=== PATIENT | female | born 1935 | race Caucasian/White ===

== ENCOUNTER 2018-07-18 08:21 | Emergency (ER) | payer MEDICARE, OTHER ==
[~2018-07-18] VITALS: Ht 165.1 cm; Wt 72.1 kg
--- OUTSIDE RECORDS SUMMARY | ~2018-07-18 | XMS | Clinical Summary ---
Demographics + + + | Address | [address] [facility] | | | [place] [address] | + + + | Home Phone | | + + + | Preferred Language | Unknown | + + + | Marital Status | | + + + | Alevism Affiliation | 1028 | + + + | Race | Unknown | + + + | Ethnic Group | Unknown | + + + Author + + + | Author | [facility] | | | and [place] | + + + | Organization | [facility] | | | and [place] | + + + | Address | Unknown | + + + | Phone | Unavailable | + + + Support + + + + + | Name | Relationship | Address | Phone | + + + + + | Leandro Carrizales | ECON | [address] | | | | | [place] | | | | | [address] | | + + + + + Care Team Providers + +------+ + | Care Senior Reservations Agent Name | Role | Phone | + [...] | | + + + +--------+ + Current Medications + + +--------+---------+------+------+-------+ | Prescription | Sig. | Disp. | Refills | Star | End | Statu | | | | | | t | Date | s | | | | | | Date | | | + + +--------+---------+------+------+-------+ | paroxetine (PAXIL) | Take 30 mg by mouth | | | 05/12 | | Activ | | 30 MG tablet | Daily. | | | 12/29 | | e | | | | | | 12 | | | + + +--------+---------+------+------+-------+ | Calcium | Take by mouth 2 | | | 05/12 | | Activ | | Citrate-Vitamin D | times daily. | | | 12/29 | | e | | (CITRACAL/VITAMIN D) | | | | 12 | | | | 250-200 MG-UNIT | | | | | | | | TABS | | | | | | | + + +--------+---------+------+------+-------+ | potassium chloride | Take 10 mEq by mouth | | | 05/12 | | Activ | | (MICRO-K) 10 mEq CR | Daily. | | | 12/29 | | e | | capsule | | | | 12 | | | + + +--------+---------+------+------+-------+ | gabapentin | Take 300 mg by mouth | | | 05/12 | | Activ | | (NEURONTIN) 300 mg | 2 times daily. | | | 12/29 | | e | | capsule | | | | 12 | | | + + +--------+---------+------+------+-------+ | omeprazole | Take 20 mg by mouth | | | 05/12 | | Activ | | (PRILOSEC) 20 mg | Daily. | | | 12/29 | | e | | capsule | | | | 12 | | | + + +--------+---------+------+------+-------+ | furosemide (LASIX) | Take 40 mg by mouth | | | 05/12 | | Activ | | 40 mg tablet | Daily. | | | 12/29 | | e | | | | | | 12 | | | + + +--------+---------+------+------+-------+ | Acetaminophen | Take 1,000 mg by | | | | | Activ | | (TYLENOL ARTHRITIS | mouth 3 times daily. | | | | | e | | PAIN PO) | | | | | | | + + +--------+---------+------+------+-------+ | aspirin 81 mg EC | Take 81 mg by mouth | | | | | Activ | | tablet | Daily. | | | | | e | + + +--------+---------+------+------+-------+ | levothyroxine | Take 25 mcg by mouth | | | | | Activ | | (SYNTHROID, | every morning | | | | | e | | LEVOTHROID) 25 mcg | (before breakfast). | | | | | | | tablet | | | | | | | + + +--------+---------+------+------+-------+ | melatonin 5 mg | Take 10 mg by mouth | | | | | Activ | | tablet | nightly. | | | | | e | + + +--------+---------+------+------+-------+ | VALERIAN PO | Take 3 capsules by | | | | | Activ | | | mouth nightly. | | | | | e | + + +--------+---------+------+------+-------+ | tiZANidine | Take 0.5 tablets by | 90 | 1 | 04/0 | | Activ | | (ZANAFLEX) 4 mg | mouth every 6 hours | tablet | | 6/20 | | e | | tablet | as needed. | | | 16 | | | + + +--------+---------+------+------+-------+ | DiphenhydrAMINE | Take 25 mg by mouth | | | | | Activ | | HCl (BENADRYL | 4 times daily. | | | | | e | | ALLERGY PO) | Patient takes at | | | | | | | | night. | | | | | | + + +--------+---------+------+------+-------+ | Cyanocobalamin | Take 1 tablet by | | | | | Activ | | (VITAMIN B 12 PO) | mouth Daily. | | | | | e | + + +--------+---------+------+------+-------+ | losartan (COZAAR) | Take 100 mg by mouth | | 6 | 01/ | | Activ | | 100 MG tablet | Daily. | | | 020 | | e | | | | | | 17 | | | + + +--------+---------+------+------+-------+ | atorvaSTATin | Take 20 mg by mouth | | 5 | 12/2 | | Activ | | (LIPITOR) 20 mg | Daily. | | | 04/30 | | e | | tablet | | | | 16 | | | + + +--------+---------+------+------+-------+ | carbidopa-levodopa | Take 1 tablet by | | | 2 | | Activ | | (SINEMET) 10-100 mg | mouth Daily. | | | 8 | | e | | per tablet | | | | 17 | | | + + +--------+---------+------+------+-------+ | dilTIAZem | Take 180 mg by mouth | | | 09/11 | | Activ | | (CARDIZEM CD) 180 mg | Daily. | | | 320 | | e | | 24 hr capsule | | | | 17 | | | + + +--------+---------+------+------+-------+ | | Take 1 tablet by | | | 11/0 | | Activ | | oxyCODONE-acetaminop | mouth as needed. | | | 3/20 | | e | | hen (PERCOCET) | | | | 17 | | | | 10-325 mg per tablet | | | | | | | + + +--------+---------+------+------+-------+ | allopurinol | Take 300 mg by mouth | | 0 | 08/2 | | Activ | | (ZYLOPRIM) 300 mg | Daily. | | | 05/31 | | e | | tablet | | | | 17 | | | + + +--------+---------+------+------+-------+ | LORazepam (ATIVAN) | Take 1 tablet by | 2 | 0 | 11/2 | | Activ | | 0.5 mg tablet | mouth once as needed | tablet | | 03/30 | | e | | | for Anxiety or | | | 17 | | | | | Insomnia (Take [...] | dose. | | | | | | + + +--------+---------+------+------+-------+ Active Problems + + + | Problem | Noted Date | + + + | S/P lumbar fusion | 01/19/2016 | + + + | BILLIE (obstructive sleep apnea) | 12/14/2015 | + [...] | 03/03/2015 | + + + | SPINAL STENOSIS, LUMBAR | | + + + | BURSITIS, HIP | | + + + | DEGENERATIVE DISC DISEASE, LUMBAR SPINE | | + + + | BACK PAIN, LUMBAR | | + + + | OSTEOARTHRITIS, LUMBOSACRAL SPINE | | + + + Encounters +--------+ + + + + | Date | Type | Specialty | Care Team | Description | +--------+ + + + + | 06/14/ | Telephone | | Umer Garcia MD | Pain | | 2018 | | | | | +--------+ + + + + from Last 3 Months Family History + + +------+ + | [...] + | Paternal Grandmother | | | [place] | | | | (Age | | | | | 59) | | + +------+ + + Social [...] + + + | Blood Pressure | 160/88 | 07/17/2017 1020 PST | + + + + | Pulse | 76 | 07/17/2017 1020 PST | + + + + | Temperature | 37.9 C (100.2 F) | 12/16/2015 1600 PDT | + + + + | Respiratory Rate | 16 | 10/20/2016 1038 PST | + + + + | Oxygen Saturation | 93% | 12/16/2015 1600 PDT | + + + + | Inhaled Oxygen | - | - | | Concentration | | | + + + + | Weight | 74.8 kg (164 lb 14.5 | 07/17/20170 PST | | | oz) | | + + + + | Height | 165.1 cm (5' 5") | 07/17/20170 PST | + + + + | Body Mass Index | 27.44 | 07/17/20170 PST | + + + + Plan of Treatment + + + + + | Health Maintenance | Due Date | Last Done | Comments | + + + + + | Vaccine: | | | | | Dtap/Tdap/Td (1 - | 6 | | | | Tdap) | | | | + + + [...] + + | Vaccine: Influenza | | | | | (#1) | 8 | | | + + + + + Implants + +--------+--------+ +--------+--------+--------+ | Implanted | Type | Area | Manufacture | Device | Expira | Model | | | | | r | | tion | / | | | | | | Identi | Date | Serial | | | | | | fier | | / Lot | + +--------+--------+ +--------+--------+--------+ | Bone [employer] Chip 15cc 4-10mm - | Bone | N/A: | RTI | | 07/11/ | [id number] | | [id number]: Qty: 1 | | Spine | BIOLOGICS | | 2020 | | | on 12/14/2015 by Umer Garcia | | Lumbar | INC - RBIO | | | /[id number] | | MD Mary | | | | | | 7-054 | | | | | | | | / | + +--------+--------+ +--------+--------+--------+ | Imp Spn Intbdy Xlw | Generi | N/A: | NUVASIVE - | | | [id number] | | [id number] - | c | Spine | NVSV | | | / / | | [id number]: Qty: 1 on | | Lumbar | | | | | | 12/14/2015 by Umer Garcia, | | | | | | | | | | | | | | | + +--------+--------+ +--------+--------+--------+ | Hector Ti Prebent Lordtc 60mm - | Generi | N/A: | NUVASIVE - | | | [id number] | | [id number]: Qty: 2 on | c | Spine | NVSV | | | 0 / / | | 12/14/2015 by Umer Garcia, | | Lumbar | | | | | | MD | | | | | | | + +--------+--------+ +--------+--------+--------+ | Graft Infuse Bone Kit Xs - | Graft | N/A: | SOFAMOR | | 08/10/ | [id number] | | [id number]: Qty: 1 on | | Spine | DANEK - DIV | | 2015 | 0 / | | 12/14/2015 by Umer Garcia, | | Lumbar | [employer] | | | /[id number] | | MD | | | - SFDK | | | 47AAL | + +--------+--------+ +--------+--------+--------+ | Putty Shilo 10cc Dbm - | Graft | N/A: | [employer] - | | 08/03/ | [id number] | | [id number]: Qty: 1 | | Spine | MEDT | | 2018 | | | on 12/14/2015 by Umer Garcia | | Lumbar | | | | /[id number] | | MD Mary | | | | | | 1-024 | | | | | | | | / | + +--------+--------+ +--------+--------+--------+ | Screw Polyax Prcpt 7.5x45mm - | Screw | N/A: | NUVASIVE - | | | [id number] | | [id number]: Qty: 2 | | Spine | NVSV | | | 5A / / | | on 12/14/2015 by Umer Garcia | | Lumbar | | | | | | MD Mary | | | | | | | + +--------+--------+ +--------+--------+--------+ | Screw Polyax Prcpt 7.5x50mm - | Screw | N/A: | NUVASIVE - | | | [id number] | | [id number]: Qty: 2 | | Spine | NVSV | | | 0A / / | | on 12/14/2015 by Umer Garcia | | Lumbar | | | | | | MD Mary | | | | | | | + +--------+--------+ +--------+--------+--------+ | Screw Polyax Precept 7.5x55 - | Screw | N/A: | NUVASIVE - | | | [id number] | | [id number]: Qty: 2 | | Spine | NVSV | | | 5A / / | | on 12/14/2015 by Umer Garcia | | Lumbar | | | | | | MD Mary | | | | | | | + +--------+--------+ +--------+--------+--------+ | Screw Set - | Screw | N/A: | NUVASIVE - | | | [id number] | | [id number]: Qty: 6 on | | Spine | NVSV | | | 0 / / | | 12/14/2015 by Umer Garcia, | | Lumbar | | | | | | | | | | | | | + +--------+--------+ +--------+--------+--------+ | Willy Chinn Pls 1cc Aseptic | | N/A: | OSTEOTECH - | | 09/17/ | [id number] | | - [id number]: Qty: | | Spine | OSTT | | 2017 | | | 1 on 04/30/2015 by Jose, | | Emily | | | | /[id number] | | Umer Hernandez MD | | al | | | | 9-140 | | | | | | | | / | + +--------+--------+ +--------+--------+--------+ | Allograft Lordotic [id number] - | | N/A: | SOFAMOR | | 11/19/ | [id number] | | [id number]: Qty: 1 on | | Spine | DANEK - DIV | | 2017 | | | 04/30/2015 by Umer Garcia, | | Cervic | [employer] | | | /[id number] | | MD | | al | - SFDK | | | 564 | | | | | | | | /27708 | | | | | | | | 5449 | + +--------+--------+ +--------+--------+--------+ | Allograft Lordotic [id number] - | | N/A: | SOFAMOR | | 11/19/ | [id number] | | [id number]: Qty: 1 on | | Spine | DANEK - DIV | | 2017 | | | 04/30/2015 by Umer Garcia, | | Cervic | [employer] | | | /[id number] | | MD | | al | - SFDK | | | 562 | | | | | | | | /[id number] | | | | | | | | 5449 | + +--------+--------+ +--------+--------+--------+ | Imp Spn Plt Ti Zevo 37mm 2lvl | | N/A: | SOFAMOR | | | [id number] | | - [id number]: Qty: 1 | | Spine | DANEK - DIV | | | 7 / / | | on 04/30/2015 by Umer Garcia | | Emily | MEDSAM | | | | | MD Mary | | peter | - SFDK | | | | + +--------+--------+ +--------+--------+--------+ | Screw D-Thrd Slf-Drl 3.5x15mm | | N/A: | SOFAMOR | | | [id number] | | - [id number]: Qty: 4 | | Spine | DANEK - DIV | | | / | | on 04/30/2015 by Umer Garcia | | Emily | [employer] | | | | | MD Mary | | peter | - SFDK | | | | + +--------+--------+ +--------+--------+--------+ | Screw D-Thrd Slf-Drl 4.0x15mm | | N/A: | SOFAMOR | | | [id number] | | - [id number]: Qty: 2 | | Spine | DANEK - DIV | | | 5 / | | on 04/30/2015 by Umer Garcia | | Emily | [employer] | | | | | MD Mary | | peter | - SFDK | | | | + +--------+--------+ +--------+--------+--------+ | Tlif Oblique [id number] 12deg | | N/A: | NUVASIVE - | | | 528378 | | - [id number]: Qty: 1 | | Spine | NVSV | | | 2 / / | | on 12/14/2015 by Umer Garcia | | Lumbar | | | | | | A, MD | | | | | | | + +--------+--------+ +--------+--------+--------+ Results Not on filefrom Last 3 Months Insurance + +--------+ +--------+ +---------+ | Payer | Benefi | Subscriber | Type | Phone | Address | | | t Plan | ID | | | | | | / | | | | | | | Group | | | | | + +--------+ +--------+ +---------+ | MEDICARE | MEDICA | [id number] | Medica | [phone] | | | | RE | | re | [phone] | | | | PART A | | | | | | | AND B | | | | | + +--------+ +--------+ +---------+ | [employer] | TRANSA | [id number] | Indemn | | | | INSURANCE | MERICA | | ity | | | | | LIFE | | | | | | | MS | | | | | + +--------+ +--------+ +---------+ + +--------+ +--------+ + + | Guarantor Name | Accoun | Relation to | Date | Phone | Billing Address | | | t Type | Patient | of | | | | | | | | | | + +--------+ +--------+ + + | MELLISA CARRIZALES | Person | Self [birth year] Home: | [address] | | | al/Fam | | 1935 | [phone] | [place] | | | [place] | | | [phone] | [phone] | + +--------+ +--------+ + +
--- OUTSIDE RECORDS SUMMARY | ~2018-07-18 | XMS | Encounter Summary ---
Demographics + + + | Address | [address] | | | [place] [address] | + + + | Home Phone | | + + + | Preferred Language | Unknown | + + + | Marital Status | | + + + | Sikhism Affiliation | 1028 | + + + | Race | Unknown | + + + | Ethnic Group | Unknown | + + + Author + + + | Author | [facility] | + + + | Organization | [facility] | + + + | Address | Unknown | + + + | Phone | Unavailable | + + + Support + + +---------+ + | Name | Relationship | Address | Phone | + + +---------+ + | Leandro Carrizales | ECON | Unknown | | + + +---------+ + Care Team Providers + +------+ + | Care Oxygen Equipment Technician Name | Role | Phone | + +------+ + | Ethan Solomon MD | PCP | | + +------+ + Encounter Details +--------+ + + + + | Date | Type | Department | Care Team | Description | +--------+ + + + + | 05/10/ | Orders Only | [facility] | Matthew | Injury of left | | 2018 | | Vascular Surgery | BHANU Aceves | axillary artery, | | | | [address] | | initial encounter | | | | E [place] | | (Primary Dx) | | | | [address] | | | | | | [phone] | | | +--------+ + + + [...] +---------+ + | Yes | | | rarely | + + +---------+ + + + + | Sex Assigned at | Date Recorded | | | | + + + | Not on file | | + + + as of this encounter Plan of Treatment + +--------+ + + | Name | Priori | Associated Diagnoses | Order Schedule | | | ty | | | + +--------+ + + | US carotid doppler, bilateral | Routin | Injury of left | Expected: | | | e | axillary artery, | 05/10/2018, Expires: | | | | initial encounter | 02/07/2019 | + +--------+ + + | US upper extremity arterial | Routin | Injury of left | Expected: | | unilateral | e | axillary artery, | 05/10/2018, Expires: | | | | initial encounter | 02/07/2019 | + +--------+ + + as of this encounter Visit Diagnoses + + | Diagnosis | + + | Injury of left axillary artery, initial encounter - Primary | + +"
--- OUTSIDE RECORDS SUMMARY | ~2018-07-18 | XMS | Clinical Summary ---
Demographics + + + | Address | [address] [facility] | | | [place] [address] | + + + | Home Phone | | + + + | Preferred Language | Unknown | + + + | Marital Status | | + + + | Mormon Affiliation | 1028 | + + + | Race | Unknown | + + + | Ethnic Group | Unknown | + + + Author + + + | Author | [facility] | | | and [place] | + + + | Organization | [facility] | | | [...] [place] | | | | | [address] | | + + + + + Care Team Providers + +------+ + | Care Personal Protection Specialist Name | Role | Phone | [...] + | Paternal Grandmother | | | [place] | | | | (Age | | [...] Lot | + +--------+--------+ +--------+--------+--------+ | Bone [employer] Chip 15cc 4-10mm - | Bone | N/A: | RTI | | 07/11/ | [id number] | | [id number]: Qty: 1 | | Spine | BIOLOGICS | | 2020 | | | on 12/14/2015 by Umer Garcia | | Lumbar | INC - RBIO | | | /[id number] | | MD Mary | | | | | | 7-054 | | | | | | | | / | + +--------+--------+ +--------+--------+--------+ | Imp Spn Intbdy Xlw | Generi | N/A: | NUVASIVE - | | | 246655 | | [id number] - | c | Spine | NVSV | | | / / | | [id number]: Qty: 1 on | | Lumbar | | | | | | 12/14/2015 by Umer Garcia, | | | | | | | | | | | | | | | + +--------+--------+ +--------+--------+--------+ | Hector Ti Prebent Lordtc 60mm - | Generi | N/A: | NUVASIVE - | | | [id number] | | [id number]: Qty: 2 on | c | Spine | NVSV | | | 0 / / | | 12/14/2015 by Umer Garcia, | | Lumbar | | | | | | MD | | | | | | | + +--------+--------+ +--------+--------+--------+ | Graft Infuse Bone Kit Xs - | Graft | N/A: | SOFAMOR | | 08/10/ | [id number] | | [id number]: Qty: 1 on | | Spine | [...] | [employer] - | | 08/03/ | [id number] | | [id number]: Qty: 1 | | Spine | MEDT [...] N/A: | NUVASIVE - | | | 590482 | | [id number]: Qty: 2 | | Spine | NVSV | | | 5A / / | | on 12/14/2015 by Umer Garcia | | Lumbar | | | | | | MD Mary | | | | | | | + +--------+--------+ +--------+--------+--------+ | Screw Polyax Prcpt 7.5x50mm - | Screw | N/A: | NUVASIVE - | | | [id number] | | [id number]: Qty: 2 | | Spine | NVSV | | | 0A / / | | on 12/14/2015 by Umer Garcia | | Lumbar | | | | | | MD Mary | | | | | | | + +--------+--------+ +--------+--------+--------+ | Screw Polyax Precept 7.5x55 - | Screw | N/A: | NUVASIVE - | | | [id number] | | [id number]: Qty: 2 | | Spine | NVSV | | | 5A / / | | on 12/14/2015 by Umer Garcia | | Lumbar | | | | | | MD Mary | | | | | | | + +--------+--------+ +--------+--------+--------+ | Screw Set - | Screw | N/A: | NUVASIVE - | | | [id number] | | [id number]: Qty: 6 on | | Spine | NVSV | | | 0 / / | | 12/14/2015 by Umer Garcia, | | Lumbar | | | | | | | | | | | | | + +--------+--------+ +--------+--------+--------+ | Willy Chinn Pls 1cc Aseptic | | N/A: | OSTEOTECH - | | 09/17/ | [id number] | | - [id number]: Qty: | | Spine | OSTT | | 2017 | | | 1 on 04/30/2015 by Jose, | | Emily | | | | /[id number] | | Umer Hernandez MD | | al | | | | 9-140 | | | | | | | | / | + +--------+--------+ +--------+--------+--------+ | Allograft Lordotic [id number] - | | N/A: | SOFAMOR | | 11/19/ | [id number] | | [id number]: Qty: 1 on | | Spine | DANEK - DIV | | 2017 | | | 04/30/2015 by Umer Garcia, | | Cervic | [employer] | | | /70161 | | MD | | al | - SFDK | | | 564 | | | | | | | | /[address] | | | | | | | | 5449 | + +--------+--------+ +--------+--------+--------+ | Allograft Lordotic [id number] - | | N/A: | SOFAMOR | | 11/19/ | [id number] | | [id number]: Qty: 1 on | | Spine | DANEK - DIV | | 2017 | | | 04/30/2015 by Umer Garcia, | | Cervic | [employer]TR[employer]IC | | | /04542 | | MD | | al | - SFDK | | | 562 | | | | | | | | /[address] | | | | | | | | 5449 | + +--------+--------+ +--------+--------+--------+ | Imp Spn Plt Ti Zevo 37mm 2lvl | | N/A: | SOFAMOR | | | [id number] | | - [id number]: Qty: 1 | | Spine | DANEK - DIV | | | 7 / / | | on 04/30/2015 by Umer Garcia | | Emily | MEDSAM | | | | | MD Mary | | peter | - SFDK | | | | + +--------+--------+ +--------+--------+--------+ | Screw D-Thrd Slf-Drl 3.5x15mm | | N/A: | SOFAMOR | | | [id number] | | - [id number]: Qty: 4 | | Spine | DANEK - DIV | | | / | | on 04/30/2015 by Umer Garcia | | Emily | [employer] | | | | | MD Mary | | peter | - SFDK | | | | + +--------+--------+ +--------+--------+--------+ | Screw D-Thrd Slf-Drl 4.0x15mm | | N/A: | SOFAMOR | | | [id number] | | - [id number]: Qty: 2 | | Spine | DANEK - DIV | | | 5 / | | on 04/30/2015 by Umer Garcia | | Emily | [employer] | | | | | MD Mary | | peter | - SFDK | | | | + +--------+--------+ +--------+--------+--------+ | Tlif Oblique [id number] 12deg | | N/A: | NUVASIVE - | | | [id number] | | - [id number]: Qty: 1 | | Spine | NVSV [...] +--------+ +---------+ | MEDICARE | MEDICA | [id number] | Medica | [phone] | | | | RE | | re | [phone] | | | | PART A | | | | | | | AND B | | | | | + +--------+ +--------+ +---------+ | [employer] | TRANSA | [id number] | Indemn | | | | INSURANCE [...] | [birth year] | Home: | [address] | | | al/Fam | | 1935 | [phone] | [place] | | | [place] | | | [phone] | [phone] | + +--------+ +--------+ + +
--- OUTSIDE RECORDS SUMMARY | ~2018-07-18 | XMS | Clinical Summary ---
Demographics + + + | Address | [address] | | | [place] [address] | + + + | Home Phone | | + + + | Preferred Language | Unknown | + + + | Marital Status | | + + + | Oriental Orthodox Affiliation | 1028 | + + + | Race | Unknown | + + + | Ethnic Group | Unknown | + + + Author + + + | Author | [facility] | + + + | Organization | [facility] | + + + | Address | Unknown | + + + | Phone | Unavailable | + + + Support + + +---------+ + | Name | Relationship | Address | Phone | + + +---------+ + | Leandro Carrizales | ECON | Unknown | | + + +---------+ + Care Team Providers + +------+ + | Care Research Interviewer Name | Role | Phone | + [...] mouth 2 (two) times | | | /20 | | e | | tablet | [...] | | capsule | | | | 7/20 | | e | | | | | | 18 | | | + + +--------+---------+------+------+-------+ | levothyroxine | | | | 01 | | Activ | | (SYNTHROID) 25 MCG | | | | 420 | | e | | tablet | | | | 18 | | | + + +--------+---------+------+------+-------+ | allopurinol | | | | 02/2 | | Activ | | (ZYLOPRIM) 300 MG | | | | 220 | | e | | tablet | [...] TABLET BY | 30 | 10 | 04/1 | | Activ | | (PLAVIX) 75 [...] | 06/03/2013 | + + + Encounters +--------+ + + + + | Date | Type | Specialty | Care Team | Description | +--------+ + + + + | 05/10/ | Orders Only | | Matthew, | Injury of left | | 2017 | | | BHANU Aceves | axillary artery, | | | | | | initial encounter | | | | | | (Primary Dx) | +--------+ + + + + from [...] + + + | Blood Pressure | 146/74 | 12/11/2017 11:02 AM PDT | + + + + | Pulse | 70 | 12/11/2017 11:02 AM PDT | + + + + | Temperature | 36.7 C (98 F) | 01/24/2017 1:43 PM PDT | + + + + | Respiratory Rate | 14 | 12/11/2017 11:02 AM PDT | + + + + | Oxygen Saturation | 97% | 12/11/2017 11:02 AM PDT | + + + + | Inhaled Oxygen | - | - | | Concentration | | | + + + + | Weight | 75.3 kg (166 lb) | 10/25/2017 3:31 PM PST | + + + + | Height | 165.1 cm (5' 5") | 10/25/2017 3:31 PM PST | + + + + | Body Mass Index | 27.62 | 10/25/2017 3:31 PM PST | + + + + Plan [...] | | 01/08/ | 6188-1 | | [id number]: Qty: 1 on | | Should | MEDICAL - | | 2018 | -001 / | | 01/03/2017 by Hu Quintero, | | er | STRY | | | | | | | | | | | /[id number] | | | | | | | | 6 | + +------+--------+ +--------+--------+--------+ | Imp Shldr Hum Stem Flx Std 4c | | Left: | MRAIAMA - | | 11/08/ | [id number] | | - [id number]: Qty: | | Should | TRNR | | 2020 | C | | 1 on 01/03/2017 by Hu Quintero | | er | | | | /[id number] | | MD Duc | | | | | | [id number] / | + +------+--------+ +--------+--------+--------+ | Flex Shoulder System Aequalis | | Left: | SOPHYER - | | 06/02/ | [id number] | | Humeral HeadImplanted: Qty: | | Should | TRNR | | 2020 | | | 1 on 01/03/2017 by Hu Quintero | | er | | | | /[id number] | | MD Duc | | | | | | [id number] / | + +------+--------+ +--------+--------+--------+ | Imp Conchita Sykes [facility] S35 | | Left: | MARIAMA - | | 09/13/ | [id number] | | - [id number]: Qty: | | Should | TRNR | | 2021 | | | 1 on 01/03/2017 by Hu Quintero | | er | | | | /[id number] | | MD Duc | | | | | | [id number] / | + +------+--------+ +--------+--------+--------+ Results Not on filefrom Last 3 Months Insurance + +--------+ +------+-------+ + | Payer | Geovannyi | Subscriber | Type | Phone | Address | | | t Plan | ID | | | | | | / | | | | | | | Group | | | | | + +--------+ +------+-------+ + | MEDICARE | MEDICA | [id number] | | | [address] | | | RE | | | | [place] [address] | | | IP-OP | | | | | + +--------+ +------+-------+ + | COMMERCIAL OTHER | TRANSA | [id number] | | | | | | MERICA | | | | | | | LIFE | | | | | + +--------+ [...] Self | [birth year] Home: | [address] | | | al/Fam | | 1935 | [phone] [address] | | | [place] | | | [phone] | [phone] | + +--------+ +--------+ + +
--- OUTSIDE RECORDS SUMMARY | ~2018-07-18 | XMS | Encounter Summary ---
Demographics + + + | Address | [address] | | | [place] [address] | + + + | Home Phone | | + + + | Preferred Language | Unknown | + + + | Marital Status | | + + + | Orthodox Affiliation | 1028 | + + + | Race | Unknown | + + + | Ethnic Group | Unknown | + + + Author + + + | Author | [facility] | + + + | Organization | [facility] | + + + | Address | Unknown | + + + | Phone | Unavailable | + + + Support + + +---------+ + | Name | Relationship | Address | Phone | + + +---------+ + | Leandro Carrizales | ECON | Unknown | | + + +---------+ + Care Team Providers + +------+ + | Care Real Estate Agency Licensee Name | Role | Phone | + +------+ + | Ethan Solomon MD | PCP | | + +------+ + Encounter Details +--------+ + + + + | Date | Type | Department | Care Team | Description | +--------+ + + + + | 05/10/ | Orders Only | [facility] | Matthew | Injury of left | | 2018 | | Vascular Surgery | BHANU Aceves | axillary artery, | | | | [address] | | initial encounter | | | | E [place] | | (Primary Dx) | | | | [address] | | | | | | [phone] | | | +--------+ + + + [...]
--- OUTSIDE RECORDS SUMMARY | ~2018-07-18 | XMS | Encounter Summary ---
Demographics + + + | Address | [address] | | | [place] [address] | + + + | Home Phone [...] [place] | | | | | [address] | | + + + + + Care Team Providers + +------+ + | Care Big Data Analytics Lead Name | Role | Phone | + +------+ + | Ethan Solomon MD | PCP | | + +------+ + Reason for Visit +--------+ + | Reason | Comments | +--------+ + | Pain | | +--------+ + Encounter Details +--------+ + + + + | Date | Type | Department | Care Team | Description | +--------+ + + + + | 06/14/ | Telephone | [facility] | Umer Garcia MD | Pain | | 2018 | | NEUROSURGERY [address] | [address] [place] | | | | | [address] | [address] [place], [place] | | | | | [place], [place] | [address] | | | | | [address] | | | | | | [phone] | | | +--------+ + + + [...] + + + as of this encounter Functional Status + [...] | | | + + + + as of this encounter Plan of Treatment Not on fileas of this encounter Visit Diagnoses Not on filein this encounter"
--- OUTSIDE RECORDS SUMMARY | ~2018-07-18 | XMS | Clinical Summary ---
Demographics + + + | Address | [address] | | | [place] [address] | + + + | Home Phone | | + + + | Preferred Language | Unknown | + + + | Marital Status | | + + + | Methodist Affiliation | 1028 | + + + | Race | Unknown | + + + | Ethnic Group | Unknown | + + + Author + + + | Author | [facility] | + + + | Organization | [facility] | + + + | Address | Unknown | + + + | Phone | Unavailable | + + + Support + + +---------+ + | Name | Relationship | Address | Phone | + + +---------+ + | Leandro Carrizales | ECON | Unknown | | + + +---------+ + Care Team Providers + +------+ + | Care Tester Rocket Engine Name | Role | Phone | + [...] | | 01/08/ | 6188-1 | | [id number]: Qty: 1 on | | Should | [...] | MARIAMA - | | 11/08/ | [id number] | | - [id number]: Qty: | | Should | TRNR | | 2020 | C | | 1 on 01/03/2017 by Hu Quintero | | er | | | | /[id number] | | MD Duc | | | | | | [id number] / | + +------+--------+ +--------+--------+--------+ | Flex Shoulder System Aequalis | | Left: | SOPHYER - | | 06/02/ | [id number] | | Humeral HeadImplanted: Qty: | | Should | TRNR | | 2020 | | | 1 on 01/03/2017 by Hu Quintero | | er | | | | /[id number] | | MD Duc | | | | | | [id number] / | + +------+--------+ +--------+--------+--------+ | Imp [facility]chita [facility] S35 | | Left: | MARIAMA - | | 09/13/ | [id number] | | - [id number]: Qty: | | Should | TRNR | [...] +------+-------+ + | MEDICARE | MEDICA | [id number] | | | [address] | | | RE | | | | [place] [address] | | | IP-OP | | | | | + +--------+ +------+-------+ + | COMMERCIAL OTHER | TRANSA | [id number] | | | | | | MERICA [...] Self | [birth year] | Home: | [address] | | | al/Fam | | 1935 | [phone] | [place] | | | [place] | | | [phone] | [phone] | + +--------+ +--------+ + +
--- OUTSIDE RECORDS SUMMARY | ~2018-07-18 | XMS | Encounter Summary ---
Demographics + + + | Address | [address] | | | [place] [address] | + + + | Home Phone [...] [place] | | | | | [address] | | + + + + + Care Team Providers + +------+ + | Care Clerk Of Works Name | Role | Phone | + [...] [place], [place] | | | | | [place], [place] | [address] | | | | | [address] | | | | | | [phone] | | | +--------+ + + + [...]
[~2018-07-18 08:21] MED LIST: ACID CONTROL20 MG PO; ALPRAZOLAM1 MG PO; ASPIRIN EC81 MG PO; BENADRYL25 MG PO; BENAZEPRIL HCL20 MG PO; CARBIDOPA-LEVO1 EACH PO; CATAFLAM50 MG PO; CILOSTAZOL100 MG PO; CLOPIDOGREL75 MG PO; COZAAR25 MG PO; DULOXETINE HCL60 MG PO; EFFER-K 10 MEQ10 MEQ PO; GABAPENTIN300 MG PO; LASIX40 MG PO; LIPITOR20 MG PO; MELATONIN10 M2 PO; NORCO 5-325 TA1 EACH PO; OMEPRAZOLE20 M1 PO; PAROXETINE HCL30 MG PO; PERCOCET 5-3251 EACH PO; PRILOSEC20 MG PO; PROZAC20 MG PO; SYNTHROID25 MCG PO; TRAMADOL HCL50 MG PO; VALARIAN ROOT; VALERIAN ROOT100 MG PO; VITAMIN B-12100 MCG PO
[2018-07-18] MEDS ORDERED: [UNRECOGNIZED DRUG - OTHER] OPTH (08:56)
== END 2018-07-18 09:16 | disposition home or self-care (01) ==
LOC: ED 08:21
DX: H11.31 Conjunctival hemorrhage, right eye (principal); Z88.0 Allergy status to penicillin; Z88.5 Allergy status to narcotic agent; Z79.899 Other long term (current) drug therapy; Z79.82 Long term (current) use of aspirin
CPT/HCPCS: 99283

== ENCOUNTER 2019-06-11 12:55 | Emergency (ER) | payer MEDICARE ==
[~2019-06-11] VITALS: Ht 165.1 cm; Wt 68.0 kg
--- OUTSIDE RECORDS SUMMARY | ~2019-06-11 | XMS | Clinical Summary ---
Demographics + + + | Address | [address] | | | [place] [address] | + + + | Home Phone | | + + + | Preferred Language | Unknown | + + + | Marital Status | | + + + | Bahai Affiliation | 1028 | + + + | Race | Unknown | + + + | Ethnic Group | Unknown | + + + Author + + + | Author | [employer] (Historical as of | | | 04-27-19) | + + + | Organization | [facility] [employer] [facility] (Historical as of | | | 04-27-19) | + + + | Address | Unknown | + + + | Phone | Unavailable | + + + Support + + +---------+ + | Name | Relationship | Address | Phone | + + +---------+ + | Leandro Carrizales | ECON | Unknown | | + + +---------+ + Care Team Providers + +------+ + | Care Conservation Worker Name | Role | Phone | + +------+ + | Ethan Solomon MD | PP | | + +------+ + Allergies + + + + + + | Active Allergy | Reactions | Severity | Noted | Comments | | | | | Date | | + + + + + + | Codeine | Rash | Medium | 01/24/20 | | | | | | 13 | | + + + + + + | Penicillins | Rash | Medium | 01/24/20 | | | | | | 13 | | + + + + + + Current Medications + + +--------+---------+------+------+-------+ | Prescription | Sig. | Disp. | Refills | Star | End | Statu | | | | | | t | Date | s | | | | | | Date | | | + + +--------+---------+------+------+-------+ | paroxetine (PAXIL) | Take 10 mg by mouth | | | | | Activ | | 10 MG tablet | every morning. | | | | | e | + + +--------+---------+------+------+-------+ | pravastatin | Take 20 mg by mouth | | | | | Activ | | (PRAVACHOL) 20 MG | daily. | | | | | e | | tablet | | | | | | | + + +--------+---------+------+------+-------+ | benazepril | Take 20 mg by mouth | | | | | Activ | | (LOTENSIN) 20 MG | daily. | | | | | e | | tablet | | | | | | | + + +--------+---------+------+------+-------+ | vitamin B-12 | Take 1,000 mcg by | | | | | Activ | | (CYANOCOBALAMIN) | mouth daily. | | | | | e | | 1000 MCG tablet | | | | | | | + + +--------+---------+------+------+-------+ | Cholecalciferol | Take by mouth. | | | | | Activ | | (D3 ADULT PO) | | | | | | e | + + +--------+---------+------+------+-------+ | gabapentin | Take by mouth 3 | | | | | Activ | | (NEURONTIN) 250 | (three) times daily. | | | | | e | | MG/5ML solution | | | | | | | + + +--------+---------+------+------+-------+ | Flaxseed, Linseed, | Take by mouth. | | | | | Activ | | 1000 MG CAPS | | | | | | e | + + +--------+---------+------+------+-------+ | Melatonin 10 MG | Take by mouth. | | | | | Activ | | TABS | | | | | | e | + + +--------+---------+------+------+-------+ | diclofenac | Take 1 tablet by | | | 04/2 | | Activ | | (CATAFLAM) 50 MG | mouth 2 (two) times | | | 7/20 | | e | | tablet | daily. | | | 17 | | | + + +--------+---------+------+------+-------+ | aspirin EC 81 MG | Take 1 tablet by | 30 | 11 | 05/1 | | Activ | | EC tablet | mouth daily with | tablet | | 6/20 | | e | | | breakfast. | | | 17 | | | + + +--------+---------+------+------+-------+ | CARTIA XT 180 MG | | | | 02/0 | | Activ | | 24 hr capsule | | | | 9/20 | | e | | | | | | 18 | | | + + +--------+---------+------+------+-------+ | furosemide (LASIX) | | | | 01/0 | | Activ | | 20 MG tablet | | | | 5/20 | | e | | | | | | 18 | | | + + +--------+---------+------+------+-------+ | atorvastatin | | | | 03/0 | | Activ | | (LIPITOR) 20 MG | | | | 4/20 | | e | | tablet | | | | 18 | | | + + +--------+---------+------+------+-------+ | LYRICA 75 MG | | | | 02/2 | | Activ | | capsule | | | | 03/30 | | e | | | | | | 18 | | | + + +--------+---------+------+------+-------+ | levothyroxine | | | | 09/11 | | Activ | | (SYNTHROID) 25 MCG | | | | 12/29 | | e | | tablet | | | | 18 | | | + + +--------+---------+------+------+-------+ | allopurinol | | | | 02/2 | | Activ | | (ZYLOPRIM) 300 MG | | | | 2/20 | | e | | tablet | | | | 18 | | | + + +--------+---------+------+------+-------+ | carbidopa-levodopa | | | | 02/0 | | Activ | | (SINEMET) 10-100 MG | | | | 05/31 | | e | | per tablet | | | | 18 | | | + + +--------+---------+------+------+-------+ | clopidogrel | TAKE ONE TABLET BY | 30 | 10 | 12/10 | | Activ | | (PLAVIX) 75 MG | MOUTH EVERY DAY | tablet | | 2/20 | | e | | tablet | | | | 18 | | | + + +--------+---------+------+------+-------+ | losartan (COZAAR) | | | | 10/2 | | Activ | | 25 MG tablet | | | | 4/20 | | e | | | | | | 18 | | | + + +--------+---------+------+------+-------+ Active Problems + + + | Problem | Noted Date | + + + | Acute pain of left shoulder | 01/11/2017 | + + + | Primary osteoarthritis of left shoulder | 01/11/2017 | + + + | Status post total replacement of left shoulder | 01/11/2017 | + + + | Injury of left axillary artery | 01/05/2017 | + + + | Arthropathy of left shoulder | 01/05/2017 | + + + | Chronic pain syndrome | 01/04/2017 | + + + | Essential hypertension, benign | 01/04/2017 | + + + | Insomnia due to medical condition | 01/04/2017 | + + + | Lower back pain | 06/03/2013 | + + + Encounters +--------+---------+ + + + | Date | Type | Specialty | Care Team | Description | +--------+---------+ + + + | 04/17/ | Office | | Dariel Hendrix, | Primary | | 2019 | Visit | | MD | osteoarthritis of | | | | | | left shoulder | | | | | | (Primary Dx); Status | | | | | | post total | | | | | | replacement of left | | | | | | shoulder | +--------+---------+ + + + from Last 3 Months Immunizations + + + + | Name | Dates Previously Given | Next Due | + + + + | Pneumococcal | 01/04/2017 | | | Polysaccharide | | | | 23-valent | | | + + + + Social History + [...] + +---------+ + | Alcohol Use | Drinks/We | oz/Week | Comments | | | ek | | | + + +---------+ + | Yes | | | daily shot of strawberry liqueur | + + +---------+ + + + + | Sex Assigned at | Date Recorded | | | | + + + | Not on file | | + + + Last Filed Vital Signs + + + + | Vital Sign | Reading | Time Taken | + + + + | Blood Pressure | 142/87 | 04/17/2019 9:13 AM PDT | + + + + | Pulse | 75 | 04/17/2019 9:13 AM PDT | + + + + | Temperature | 36.7 C (98 F) | 01/24/2017 1:43 PM PDT | + + + + | Respiratory Rate | 15 | 08/15/2018 3:19 PM PST | + + + + | Oxygen Saturation | 97% | 04/17/2019 9:13 AM PDT | + + + + | Inhaled Oxygen | - | - | | Concentration | | | + + + + | Weight | 73.3 kg (161 lb 9.6 | 04/17/2019 9:13 AM PDT | | | oz) | | + + + + | Height | 165.1 cm (5' 5") | 04/17/2019 9:13 AM PDT | + + + + | Body Mass Index | 26.89 | 04/17/2019 9:13 AM PDT | + + + + Plan of Treatment + + + + + | Health Maintenance | Due Date | Last Done | Comments | + + + + + | Vaccine: Zoster (1 | | | | | of 2) | 7 | | | + + + + + | DEXA SCAN SCREENING | | | | | | 2 | | | + + + + + | Vaccine: | | 01/04/2017 | | | Pneumococcal 65+ | 8 | | | | Low/Medium Risk (2 | | | | | of 2 - PCV13) | | | | + + + + + | Vaccine: Influenza | | 07/17/2018 | | | (#1) | 9 | | | + + + + + | Vaccine: | | 06/05/2017 | | | Dtap/Tdap/Td (2 - | 7 | | | | Td) | | | | + + + + + Implants + +------+--------+ +--------+--------+--------+ | Implanted | Type | Area | Manufacture | Device | Expira | Model | | | | | r | | tion | / | | | | | | Identi | Date | Serial | | | | | | fier | | / Lot | + +------+--------+ +--------+--------+--------+ | Ciro Bone Simplex 09/12 Dose - | | Left: | YANELY | | 01/08/ | [id number] | | [id number]: Qty: 1 on | | Should | MEDICAL - | | 2019 | -001 / | | 01/03/2017 by Hu Quintero, | | er | STRY | | | | | MD | | | | | | /[id number] | | | | | | | | 6 | + +------+--------+ +--------+--------+--------+ | Imp Shldr Hum Stem Flx Std 4c | | Left: | SOPHYER - | | 11/08/ | [id number] | | - [id number]: Qty: | | Should | TRNR | | 2020 | C | | 1 on 01/03/2017 by Hu Quintero | | er | | | | /[id number] | | MD Duc | | | | | | [id number] / | + +------+--------+ +--------+--------+--------+ | Flex Shoulder System Aequalis | | Left: | MARIAMA - | | 06/02/ | [id number] | | Humeral HeadImplanted: Qty: | | Should | TRNR | | 2020 | | | 1 on 01/03/2017 by Hu Quintero | | er | | | | /[id number] | | MD Duc | | | | | | [id number] / | + +------+--------+ +--------+--------+--------+ | Imp Conchita Sykes Perfrm S35 | | Left: | SOPHYER - | | 09/13/ | [id number] | | - [id number]: Qty: | | Should | TRNR | | 2021 | | | 1 on 01/03/2017 by Hu Quintero | | er | | | | /[id number] | | MD Duc | | | | | | [id number] / | + +------+--------+ +--------+--------+--------+ Procedures + +--------+ + + + | Procedure Name | Priori | Date/Time | Associated Diagnosis | Comments | | | ty | | | | + +--------+ + + + | XR SHOULDER LEFT | Routin | 04/17/2019 | Primary | Results for this | | | e | 9:30 AM | osteoarthritis of | procedure are in the | | | | PDT | left shoulder | results section. | + +--------+ + + + from Last 3 Months Results X-ray shoulder left complete 2+v (04/17/2019 9:30 AM) + + + | Narrative | Performed At | + + + | History: This | [facility] | | is a 84 y.o. year old female. Diagnosis for Order | RADIOLOGY | | ICD-10-CM 1. 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 Technique: 3 views left | | | shoulder. AP, Grashey, scapular Y. Comparison Exam: 10/25/2017, | | | [facility].. Findings: The patient status post left total | | | shoulder arthroplasty. The prosthesis is in good position, without | | | evidence of failure or loosening. There is a surgical clip in the | | | axilla consistent with the repair and clipping of the axillary | | | artery. There is no fracture or dislocation noted. There is a | | | residual inferior humeral head osteophyte.. Impression: Status post | | | left total shoulder arthroplasty, with satisfactory radiographic | | | outcome.. Electronically signed by: DARIEL HENDRIX MD 04/17/2019 9:34 | | | AM DARIEL HENDRIX MD has created this entry using [employer] | | | Voice Recognition software and autoGraph macros. The entry has been | | | reviewed and there may still exist sound alike word errors. | | |Impression: Status post left total shoulder arthroplasty, with | | |satisfactory radiographic outcome.. | | | | | | | | |Electronically signed by: DARIEL HENDRIX MD 04/17/2019 9:34 AM | | | | | | | | |DARIEL HENDRIX MD has created this entry using [employer] | | |Recognition software and [employer]. The entry has been reviewed and | | |there may still exist sound alike word errors. | | | | | + + + + + + + + | Performing | Address | City/State[facility] | Phone Number | | Organization | | | | + + + + + | [facility] | [address] | [place] [address] | | + + + + + from Last 3 Months Insurance + +--------+ +------+-------+ + | Payer | Benefi | Subscriber | Type | Phone | Address | | | t Plan | ID | | | | | | / | | | | | | | Group | | | | | + +--------+ +------+-------+ + | MEDICARE | MEDICA | [id number] | | | [address] | | | RE | | | | [place] [phone] | | | IP-OP | | | | | + +--------+ +------+-------+ + + +--------+ +--------+ + + | Guarantor Name | Accoun | Relation to | Date | Phone | Billing Address | | | t Type | Patient | of | | | | | | | | | | + +--------+ +--------+ + + | MELLISA CARRIZALES | Person | Self [birth year] Home: | [address] | | | al/Fam | | 1935 | [phone] | [place] | | | [place] | | | [phone] | [phone] | + +--------+ +--------+ + +
--- OUTSIDE RECORDS SUMMARY | ~2019-06-11 | XMS | Encounter Summary ---
Demographics + + + | Address | [address] | | | [place] [address] | + + + | Home Phone | | + + + | Preferred Language | Unknown | + + + | Marital Status | | + + + | Temple Affiliation | 1028 | + + + | Race | Unknown | + + + | Ethnic Group | Unknown | + + + Author + + + | Author | [facility] | | | and [place] | + + + | Organization | [facility] | | | [facility] [place] | + + + | Address | Unknown | + + + | Phone | Unavailable | + + + Support + + +---------+ + | Name | Relationship | Address | Phone | + + +---------+ + | AllLeandro | ECON | Unknown | | + + +---------+ + Care Team Providers + +------+ + | Care Rn Vascular Name | Role | Phone | + +------+ + | Ethan Solomon MD | PCP | | + +------+ + Encounter Details +--------+ + + + + | Date | Type | Department | Care Team | Description | +--------+ + + + + | 04/08/ | Orders Only | [facility] | Provider, | | | 2019 | | [facility] | [address] | | | | | [address] | [place]. | | | | | [address] [place], [place] | [place] [address] | | | | | [address] | | | | | | [phone] | | | +--------+ + + + [...] +---------+ + | Yes | 1 Shots | 0.6 | | | | of | | | | | liquor 0 | | | | | Standard | | | | | drinks | | | | | or | | | | | equivalen | | | | | t | | | + + +---------+ + + + + | Sex Assigned at | Date Recorded | | | | + + + | Not on file | | + + + + + + + | Job Start Date | Occupation | Industry | + + + + | Not on file | Not on file | Not on file | + + + + + + + + | Travel History | Travel Start | Travel End | + + + + + + | No recent travel history available. | + + documented as of this encounter [...] as of this encounter Plan of Treatment +--------+---------+ + + + | Date | Type | Specialty | Care Team | Description | +--------+---------+ + + + | 06/17/ | Office | Orthopedic Surgery | Umer Hendrix, | | | 2019 | Visit | | [address] | | | | | | [place] [address] | | | | | | [phone] | | | | | | | | +--------+---------+ + + + documented as of this encounter Visit Diagnoses Not on filedocumented in this encounter"
--- OUTSIDE RECORDS SUMMARY | ~2019-06-11 | XMS | Encounter Summary ---
Demographics + + + | Address | [address] | | | [place] [address] | + + + | Home Phone | | + + + | Preferred Language | Unknown | + + + | Marital Status | | + + + | Sabianist Affiliation | 1028 | + + + | Race | Unknown | + + + | Ethnic Group | Unknown | + + + Author + + + | Author | [facility] [employer] (Historical as of | | | 04-27-19) | + + + | Organization | Merged With [facility] [employer] (Historical as of | | | 04-27-19) [...] Team Providers + +------+ + | Care Boot Turner Name | Role | Phone | + +------+ + | Ethan Solomon MD | PCP | | + +------+ + Reason for Visit + + + | Reason | Comments | + + + | Shoulder Pain | | + + + Surgical (Routine) + +--------+ + + + + | Status | Reason | Specialty | Diagnoses / | Referred By | Referred To | | | | | Procedures | Contact | Contact | + +--------+ + + + + | Authorized | | Orthopedic | Diagnoses | Hendrix, | Hendrix, | | | | Surgery | left | Dariel Wolf MD | Dariel Wolf MD | | | | | shoulder | [address] | [address] | | | | | Procedures | ST | [address] [place], | | | | | ORTHO FOLLOW | [place], [place] | [place] [address] | | | | | UP | [address] | Phone: | | | | | | Phone: | [phone] | | | | | | [phone] | Fax: | | | | | | Fax: | [phone] | | | | | | [phone] | | + +--------+ + + + + Encounter Details +--------+---------+ + + + | Date | Type | Department | Care Team | Description | +--------+---------+ + + + | 04/17/ | Office | [facility] | Dariel Hendrix, | Primary | | 2019 | Visit | [facility] | [address] | osteoarthritis of | | | | MEDICINE PAULINE | [place] [address] | left shoulder | | | | [address] | [phone] | (Primary Dx); Status | | | | [place], [place] | | post total | | | | [address] | | replacement of left | | | | [phone] | | shoulder | +--------+---------+ + + + Social History [...] on file | | + + + as of this encounter Last Filed Vital Signs + + + + | Vital Sign | Reading | Time Taken | + + + + | Blood Pressure | 142/87 | 04/17/2019 9:13 AM PDT | + + + + | Pulse | 75 | 04/17/2019 9:13 AM PDT | + + + + | Temperature | - | - | + + + + | Respiratory Rate | - | - | + + + + | Oxygen [...] AM PDT | + + + + in this encounter Progress Notes Dariel Hendrix MD - 04/17/2019 8:50 AM PDTFormatting of this note may be different from the original. [facility] Service: Orthopedic Surgery Return Office Visit DIAGNOSIS: Status post left total shoulder arthroplasty. Date of surgery 01/03/2017 Plan: Physical therapy: Continue self-directed home exercise program. Restrictions: None. Follow up 3 months for evaluation of progress. HISTORY OF PRESENT ILLNESS: Ms. Carrizales is seen today in follow-up of her shoulder. She reports that there is still so me pain with use of the shoulder. Her motion and strength are somewhat limited. However, s he states that the shoulder is at baseline. She is not getting any worse, she is not gettin g any better over the last 6 months since we last saw her. She has been as active as she ca n but has not been doing formal therapy exercises. ROS: Review of Systems All other systems reviewed and are negative. PHYSICAL EXAM: Wt Readings from Last 1 Encounters: 04/17/19 73.3 kg (161 lb 9.6 oz) Temp Readings from Last 1 Encounters: 01/24/17 98 F (36.7 C) (Oral) BP Readings from Last 1 Encounters: 04/17/19 142/87 Pulse Readings from Last 1 Encounters: 04/17/19 75 Patient presents today in no acute distress. AAOx3. HEENT: Pupils equal, round and reactive to light. Neck: supple, trachea midline. Chest: normal respiratory effort. Abdomen: soft, non tender, non distended. Skin: no rash, normal tone and turgor. Lymph: no supraclavicular or epitrochlear nodes. Vascular: 2+ radial pulse, left hand warm, well perfused. Neuro: intact sensation to all nerve distributions of the left upper extremity. 5/5 strength with all distal motor muscle groups. Extremities: Range of motion left shoulder: Forward elevation 135 degrees, abduction 130 de grees, external rotation 75 degrees, internal rotation 40 degrees. Strength: 5-/5 with rotator cuff testing all planes. Motion is smooth without crepitus. Radiographs: X-ray Shoulder Left Complete 2+v Result Date: 04/17/2019 History: This is a 84 y.o. year old female. Diagnosis for Order ICD-10-CM 1. Primary os teoarthritis of left shoulder M19.012 X-ray shoulder left complete 2+v . Technique: 3 views left shoulder. AP, Grashey, scapular Y. Comparison Exam: 10/25/2017, [facility].. Findings: The patient status post left total shoulder arthroplasty. The prosthesis is in g ood position, without evidence of failure or loosening. There is a surgical clip in the axi lla consistent with the repair and clipping of the axillary artery. There is no fracture or dislocation noted. There is a residual inferior humeral head osteophyte.. Impression: Stat us post left total shoulder arthroplasty, with satisfactory radiographic outcome.. Electroni kathy signed by: DARIEL HENDRIX MD 04/17/2019 9:34 AM DARIEL HENDRIX MD has created this e ntry using Merit[employer] Recognition software and [employer] macros. The entry has been r eviewed and there may still exist sound alike word errors. ASSESSMENT: ICD-10-CM 1. 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 At this point, I recommend that she meet nue her therapy exercises. I gave her a sheet of exercises and advised her as to which ones she should to do so. I will have her continue with her antibiotic prophylaxis for dental w ork. Also have her continue all her activities as tolerated. She will return to see me in 8 weeks to evaluate. If we need to start formal therapy we may consider it at that time. S he is in agreement with this plan, and had no further questions. DARIEL HENDRIX MD 04/19/2019 11:53 AM DARIEL HENDRIX MD has created this entry using Merit[employer] Recognition software and [employer] macros. The entry has been reviewed and there may still exist sound alike word er rors.in this encounter Plan of Treatment Not on fileas of this encounter Results X-ray shoulder left complete 2+v (04/17/2019 9:30 AM) + + + | Narrative | Performed At | + + + | History: This | [facility] | | is a 84 y.o. year old female. Diagnosis for Order | RADIOLOGY | | ICD-10-CM 1. 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 Technique: 3 views left | | | shoulder. AP, Grashey, scapular Y. Comparison Exam: 10/25/2017, | | | [facility].. Findings: The patient status post left [...] HENDRIX MD has created this entry using [employer] | | | Voice Recognition software and [employer] macros. The entry has been | | [...] HENDRIX MD has created this entry using [employer] | | |Recognition software and [employer] macros. The entry has been reviewed and | | |there may still exist sound alike word errors. | | | | | + + + + + + + + | Performing | Address | City/State/Zipcode | Phone Number | | Organization | | | | + + + + + | [facility] | [address] | [place] [address] | | + + + + + in this encounter Visit Diagnoses + + | Diagnosis | + + | Primary osteoarthritis of left shoulder - Primary | + + | Primary localized osteoarthrosis, shoulder region | + + | Status post total replacement of left shoulder | + +
--- OUTSIDE RECORDS SUMMARY | ~2019-06-11 | XMS | Clinical Summary ---
Demographics + + + | Address | [address] | | | [place] [address] | + + + | Home Phone | | + + + | Preferred Language | Unknown | + + + | Marital Status | | + + + | Pentecostal Affiliation | 1028 | + + + [...] Team Providers + +------+ + | Care Bulk Truck Driver Name | Role | Phone | [...] | 2 times daily. | | | /20 | | e | | capsule | | | | 12 | | | + + + +---------+------+------+-------+ | Acetaminophen | Take 1,000 mg by | | 0 | | | Activ | | (TYLENOL ARTHRITIS | mouth 3 times daily. | | | | | e | | PAIN PO) | | | | | | | + + + +---------+------+------+-------+ | aspirin 81 mg EC | Take 81 mg by mouth | | 0 | | | Activ | | tablet | Daily. | | | | | e | + + + +---------+------+------+-------+ | melatonin 5 mg | Take 10 mg by mouth | | 0 | | | Activ | | tablet | nightly. | | | | | e | + + + +---------+------+------+-------+ | DiphenhydrAMINE | Take 25 mg by mouth | | 0 | | | Activ | | HCl (BENADRYL | 4 times daily. | | | | | e | | ALLERGY PO) | Patient takes at | | | | | | | | night. | | | | | | + + + +---------+------+------+-------+ | Cyanocobalamin | Take 1 tablet by | | 0 | | | Activ | | (VITAMIN B 12 PO) | mouth Daily. | | | | | e | + + + +---------+------+------+-------+ | diclofenac | | | 0 | 02/1 | | Activ | | (VOLTAREN) 50 mg EC | | | | 2/20 | | e | | tablet | | | | 19 | | | + + + +---------+------+------+-------+ | famotidine | | | 0 | 02/1 | | Activ | | (PEPCID) 40 MG | | | | 2/20 | | e | | tablet | | | | 19 | | | + + + +---------+------+------+-------+ | losartan (COZAAR) | | | 0 | 02/1 | | Activ | | 50 mg tablet | | | | 2/20 | | e | | | | | | 19 | | | + + + +---------+------+------+-------+ | PARoxetine (PAXIL) | TK 1 T PO QAM | | 4 | 09/13 | | Activ | | 40 MG tablet | | | | 09/30 | | e | | | | | | 19 | | | + + + +---------+------+------+-------+ Active Problems + + + | Problem [...] | +--------+ + + + + | 04/17/ | Orders Only | Radiology | Dariel Hendrix, | | | 2018 | | | | | +--------+ + + + + | 04/08/ | Orders Only | | Elizabeth, | | | 2018 | | | MD María | | +--------+ + + + + from Last 3 Months Immunizations + + + + | Name | Dates Previously Given | Next Due | + + + + | INFLUENZA 67 Y OR >, | 07/17/2018 | | | TRIVALENT HIGH-DOSE | | | + + + + | INFLUENZA PF | 06/05/2017 | | | TRIVALENT(PED/ADOL/A | | | | DULT) PSKT | | | + + + [...] + | Paternal Grandmother | | | [place] | | | | (Age | | [...] Yes | 1 Shots | 0.6 | Alcoholic Drinks/day: daily shot of | | | of | | strawberry liqueur | | | liquor 0 | | [...] recent travel history available. | + + Last Filed Vital Signs + + + + | Vital Sign | Reading | Time Taken | + + + + | Blood Pressure | 142/87 | 04/17/2019923 PDT | + + + + | Pulse | 75 | 04/17/2019923 PDT | + + + + | Temperature | 36.7 C (98 F) | 01/24/2017 1403 PDT | + + + + | Respiratory Rate | 15 | 08/15/2018 1520 PST | + + + + | Oxygen Saturation | 98% | 10/09/2018 1106 PST | + + + + | Inhaled Oxygen | - | - | | Concentration | | | + + + + | Weight | 73.3 kg (161 lb 9.6 | 04/17/2019923 PDT | | | oz) | | + + + + | Height | 165.1 cm (5' 5") | 04/17/2019923 PDT | + + + + | Body Mass Index | 26.89 | 04/17/2019923 PDT | + + + + Plan of Treatment +--------+---------+ + + + | Date | Type | Specialty | Care Team | Description | +--------+---------+ + + + | 06/17/ | Office | Orthopedic Surgery | Dariel Hendrix, | | | 2018 | Visit | | [address] | | | | | | [place] [address] | | | | | | [phone] | | | | | | | | +--------+---------+ + + + + + + + + | Health [...] + + | Vaccine: Influenza | | 07/17/2018, 06/05/2017 | | | (#1) | 9 | [...] Lot | + +--------+--------+ +--------+--------+--------+ | Bone Canc Chip 15cc 4-10mm - | Bone | N/A: | RTI | | 07/11/ | [id number] | | [id number]: Qty: 1 | | Spine | BIOLOGICS | | 2020 | | | on 12/14/2015 by Dariel Garcia | | Lumbar | INC - RBIO | | | /[id number] | | MD Mary | | | | | | 7-054 | | | | | | | | / | + +--------+--------+ +--------+--------+--------+ | Imp Spn Intbdy Xlw | Generi | N/A: | PINGVASIVE - | | | [id number] | | [id number] - | c | Spine | NVSV | | | 5 / / | | [id number]: Qty: 1 on | | Lumbar | | | | | | 12/14/2015 by Dariel Garcia, | | | | | | | | MD | | | | | | | + +--------+--------+ +--------+--------+--------+ | Hector Ti Prebent Lordtc 60mm - | Generi | N/A: | NUVASIVE - | | | [id number] | | [id number]: Qty: 2 on | c | Spine | NVSV | | | 0 / / | | 12/14/2015 by Dariel Garcia, | | Lumbar | | | | | | MD | | | | | | | + +--------+--------+ +--------+--------+--------+ | Graft Infuse Bone Kit Xs - | Graft | N/A: | SOFAMOR | | 08/10/ | [id number] | | [id number]: Qty: 1 on | | Spine | DANEK - DIV | | 2015 | 0 / | | 12/14/2015 by Dariel Garcia, | | Lumbar | [employer] | | | /[id number] | | MD | | | - SFDK | | | 47AAL | + +--------+--------+ +--------+--------+--------+ | Putjaime Sterling 10cc Dbm - | Graft | N/A: | [employer] - | | 08/03/ | [id number] | | [id number]: Qty: 1 | | Spine | MEDT | | 2018 | | | on 12/14/2015 by Dariel Garcia | | Lumbar | | | | /[id number] | | MD Mary | | | | | | 1-024 | | | | | | | | / | + +--------+--------+ +--------+--------+--------+ | Screw Polyax Prcpt 7.5x45mm - | Screw | N/A: | NUVASIVE - | | | [id number] | | [id number]: Qty: 2 | | Spine | NVSV | | | 5A / / | | on 12/14/2015 by Dariel Garcia | | Lumbar | | | | | | AMD | | | | | | | + +--------+--------+ +--------+--------+--------+ | Screw Polyax Prcpt 7.5x50mm - | Screw | N/A: | NUVASIVE - | | | [id number] | | [id number]: Qty: 2 | | Spine | NVSV | | | 0A / / | | on 12/14/2015 by Dariel Garcia | | Lumbar | | | | | | A, MD | | | | | | | + +--------+--------+ +--------+--------+--------+ | Screw Polyax Precept 7.5x55 - | Screw | N/A: | NUVASIVE - | | | [id number] | | [id number]: Qty: 2 | | Spine | NVSV | | | 5A / / | | on 12/14/2015 by Dariel Garcia | | Lumbar | | | | | | A, MD | | | | | | | + +--------+--------+ +--------+--------+--------+ | Screw Set - | Screw | N/A: | NUVASIVE - | | | [id number] | | [id number]: Qty: 6 on | | Spine | NVSV | | | 0 / / | | 12/14/2015 by Dariel Garcia, | | Lumbar | | | | | | MD | | | | | | | + +--------+--------+ +--------+--------+--------+ | Willy Chinn Pls 1cc Aseptic | | N/A: | OSTEOTECH - | | 09/17/ | [id number] | | - [id number]: Qty: | | Spine | OSTT | | 2017 | | | 1 on 04/30/2015 by Jose, | | Emily | | | | /[id number] | | Dariel Hernandez MD | | al | | | | 9-140 | | | | | | | | / | + +--------+--------+ +--------+--------+--------+ | Allograft Lordotic [id number] - | | N/A: | SOFAMOR | | 11/19/ | [id number] | | [id number]: Qty: 1 on | | Spine | DANEK - DIV | | 2017 | | | 04/30/2015 by Dariel Garcia, | | Emily | [employer] | | | /[id number] | | | | al | - SFDK | | | 564 | | | | | | | | /[id number] | | | | | | | | 5449 | + +--------+--------+ +--------+--------+--------+ | Allograft Lordotic [id number] - | | N/A: | SOFAMOR | | 11/19/ | [id number] | | [id number]: Qty: 1 on | | Spine | DANEK - DIV | | 2017 | | | 04/30/2015 by Dariel Garcia, | | Emily | [employer] | | | /[id number] | | | | al | - SFDK | | | 562 | | | | | | | | /[id number] | | | | | | | | 5449 | + +--------+--------+ +--------+--------+--------+ | Imp Spn Plt Ti Zevo 37mm 2lvl | | N/A: | SOFAMOR | | | [id number] | | - [id number]: Qty: 1 | | Spine | DANEK - DIV | | | 7 / / | | on 04/30/2015 by Dariel Garcia | | Emily | [employer] | | | | | MD Mary | | peter | - SFDK | | | | + +--------+--------+ +--------+--------+--------+ | Screw D-Thrd Slf-Drl 3.5x15mm | | N/A: | SOFAMOR | | | [id number] | | - [id number]: Qty: 4 | | Spine | DANEK - DIV | | | 5 / / | | on 04/30/2015 by Dariel Garcia | | Emily | [employer] | | | | | MD Mary | | al | - SFDK | | | | + +--------+--------+ +--------+--------+--------+ | Screw D-Thrd Slf-Drl 4.0x15mm | | N/A: | SOFAMOR | | | [id number] | | - [id number]: Qty: 2 | | Spine | DANEK - DIV | | | 5 / / | | on 04/30/2015 by Dariel Garcia | | Kimic | [employer] | | | | | MD Mary | | al | - SFDK | | | | + +--------+--------+ +--------+--------+--------+ | Tlif Oblique [id number] 12deg | | N/A: | SAMUEL - | | | [id number] | | - [id number]: Qty: 1 | | Spine | NVSV | | | 2 / / | | on 12/14/2015 by Dariel Garcia | | Lumbar | | | | | | MD Mary | | | | | | | + +--------+--------+ +--------+--------+--------+ | Flex Shoulder System Aequalis | | Left: | MARIAMA - | | 06/02/ | [id number] | | Humeral HeadImplanted: Qty: | | Should | TRNR | | 2020 | | | 1 on 01/03/2017 by Hu Quintero | | er | | | | /[id number] | | MD Duc | | | | | | [id number] / | + +--------+--------+ +--------+--------+--------+ | Imp Shldr Evin Ars Perfrm S35 | | Left: | MARIAMA - | | 09/13/ | [id number] | | - [id number]: Qty: | | Should | TRNR | | 2 | | | 1 on 01/03/2017 by Hu Quintero | | er | | | | /[id number] | | MD Duc | | | | | | 3019 / | + +--------+--------+ +--------+--------+--------+ | Ciro Bone Simplex 09/12 Dose - | | Left: | YANELY | | 01/08/ | [id number] | | [id number]: Qty: 1 on | | Should | [...] Flx Std 4c | | Left: | MARIAMA - | | 11/08/ | [id number] | | - [id number]: Qty: | | Should | TRNR | | 2020 | C | | 1 on 01/03/2017 by Hu Quintero | | er | | | | /[id number] | | MD Duc | | | | | | P014 / | + +--------+--------+ +--------+--------+--------+ Procedures + +--------+ + + + | Procedure Name | Priori | Date/Time | Associated Diagnosis | Comments | | | ty | | | | + +--------+ + + + | XR SHOULDER LEFT 2 + | Routin | 04/17/2019 | | Results for this | | VW | e | 9:30 PDT | | procedure are in the | | | | | | results section. | + +--------+ + + + from Last 3 Months Results XR Shoulder Left 2 + Vw (04/17/2019 9:30 PDT) + + | Specimen | + + | | + + + + + | Narrative | Performed At | + + + | History: This is a 84 y.o. year old female. Diagnosis for Order | | | ICD-10-CM 1. 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 Technique: 3 views left | | | shoulder. AP, Grashey, scapular Y. Comparison Exam: 10/25/2017, | | | [facility].. Findings: The patient status post left | | | total shoulder arthroplasty. The prosthesis is in good position, | | | without evidence of failure or loosening. There is a surgical clip in | | | the axilla consistent with the repair and clipping of the axillary | | | artery. There is no fracture or dislocation noted. There is a | | | residual inferior humeral head osteophyte.. Impression: Status | | | post left total shoulder arthroplasty, with satisfactory radiographic | | | outcome.. Electronically signed by: DARIEL HENDRIX MD | | | 04/17/2019 9:34 AM DARIEL HENDRIX MD has created this entry | | | using [employer] Voice Recognition software and [employer] | | | macros. The entry has been reviewed and there may still exist | | | sound alike word errors. | | + + + + + | Procedure Note | + + | Brian, Rad Conversion - 05/17/2019 0924 PDT History: This is a 84 y.o. year old female. | | Diagnosis for Order ICD-10-CM1. 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 Technique: 3 views left shoulder. AP, Grashey, scapular Y. | | Comparison Exam: 10/25/2017, [facility].. Findings: The patient status post | | left total shoulder arthroplasty. Theprosthesis is in good position, without evidence | | of failure or loosening.There is a surgical clip in the axilla consistent with the | | repair andclipping of the axillary artery. There is no fracture or dislocationnoted. | | There is a residual inferior humeral head osteophyte.. Impression: Status post left | | total shoulder arthroplasty, withsatisfactory radiographic outcome.. Electronically | | signed by: DARIEL HENDRIX MD 04/17/2019 9:34 AM DARIEL HENDRIX MD has created this | | entry using Globe[employer] software and [employer] macros. The entry | | has been reviewed andthere may still exist sound alike word errors. | |There is a surgical clip in the axilla consistent with the repair and | |clipping of the axillary artery. There is no fracture or dislocation | |noted. There is a residual inferior humeral head osteophyte.. | | | |Impression: Status post left total shoulder arthroplasty, with | |satisfactory radiographic outcome.. | | | | | |Electronically signed by: DARIEL HENDRIX MD 04/17/2019 9:34 AM | | | | | |DARIEL HENDRIX MD has created this entry using [employer] Voice | |Recognition software and [employer]. The entry has been reviewed and | |there may still exist sound alike word errors. | | | + + from Last 3 Months Insurance + +--------+ +--------+ +---------+--------+ | Payer | Benefi | Subscriber | Effect | Phone | Address | Type | | | t Plan | ID | paz | | | | | | / | | Dates | | | | | | Group | | | | | | + +--------+ +--------+ +---------+--------+ | MEDICARE | MEDICA | [id number] | 01/10/20 | [phone] | | Medica | | | RE | | 02-Pre | 5 | | re | | | PART A | | sent | | | | | | AND B | | | | | | + +--------+ +--------+ +---------+--------+ | [employer] | TRANSA | [id number] | 02/10/20 | | | Indemn | | INSURANCE | MERICA | | 14-Pre | | | ity | | | LIFE | | sent | | | | | | MS | | | | | | + [...] Self | [birth year] | [address] | | | al/Fam | | 1935 | [phone] | [place] | | | leonel | | | 5 (Home) | [address] | + +--------+ +--------+ + + Advance Directives Patient has advance care planning documents, and code status on file. For more information, please contact:[facility] [place] [address] + + + + + | Code Status | Date | Date | Comments | | | Activated | Inactivated | | + + + + + | Full Code | 12/14/2015 | 12/16/2015 | | | | 21:18 | 19:25 | | + + + + + + + + +---+ | | | | | + + + +---+ | Full Code | 04/30/2015 | 05/01/2015 | | | | 11:42 | 14:29 | | + + + +---+
--- OUTSIDE RECORDS SUMMARY | ~2019-06-11 | XMS | Encounter Summary ---
Demographics + + + | Address | [address] | | | [place] [address] | + + + | Home Phone | | + + + | Preferred Language | Unknown | + + + | Marital Status | | + + + | Worship Affiliation | 1028 | + + + | Race | Unknown | + + + | Ethnic Group | Unknown | + + + Author + + + | Author | [email or web address] [facility] (Historical as of | | | 04-27-19) | + + + | Organization | [facility] (Historical as of | | | 04-27-19) [...] Team Providers + +------+ + | Care Power Saw Operator Name | Role | Phone | [...] | | Procedures | ST | [address] [place], | | | | | ORTHO FOLLOW | [place], [place] | [place] [address] | | | | | UP | [address] | Phone: | | | | | | Phone: | [phone] | | | | | | [phone] | Fax: | | | | | | Fax: | [phone] | | | | | | [phone] | | + +--------+ + + + + Encounter Details +--------+---------+ + + + | Date | Type | Department | Care Team | Description | +--------+---------+ + + + | 04/17/ | Office | [facility] | Dariel Hendrix, | Primary | | 2019 | Visit | [facility] | [address] | osteoarthritis of | | | | MEDICINE PAULINE | [place] [address] | left shoulder | | | | [address] | [phone] | (Primary Dx); Status | | | | [place], [place] | | post total | | | | [address] | | replacement of left | | | | [phone] | | shoulder | +--------+---------+ + + [...] note may be different from the original. [facility] Service: Orthopedic Surgery [...] AP, Grashey, scapular Y. Comparison Exam: 10/25/2017, [facility].. Findings: The patient status post left [...] MD has created this e ntry using Struq Recognition software and RightsFlow macros. The entry has been r eviewed [...] HENDRIX MD has created this entry using Struq Recognition software and RightsFlow macros. The entry has been reviewed and there may still exist sound alike word er rors.in this encounter Plan of Treatment Not on fileas of this encounter Results X-ray shoulder left complete 2+v (04/17/2019 9:30 AM) + + + | Narrative | Performed At | + + + | History: This | [facility] | | is a 84 y.o. year old female. Diagnosis for Order | RADIOLOGY | | ICD-10-CM 1. 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 Technique: 3 views left | | | shoulder. AP, Grashey, scapular Y. Comparison Exam: 10/25/2017, | | | [facility].. Findings: The patient status post left [...] HENDRIX MD has created this entry using [employer] | | | Voice Recognition software and RightsFlow macros. The entry has been | | [...] HENDRIX MD has created this entry using [employer] Voice | | |Recognition software and RightsFlow macros. The entry has been reviewed and | | |there may still exist sound alike word errors. | | | | | + + + + + + + + | Performing | Address | City/State/Zipcode | Phone Number | | Organization | | | | + + + + + | [facility] | [address] | [place] [address] | | + + + + + in this encounter Visit Diagnoses + + | Diagnosis | + + | Primary osteoarthritis of left shoulder - Primary | + + | Primary localized osteoarthrosis, shoulder region | + + | Status post total replacement of left shoulder | + +
--- OUTSIDE RECORDS SUMMARY | ~2019-06-11 | XMS | Encounter Summary ---
Demographics + + + | Address | [address] | | | [place] [address] | + + + | Home Phone | | + + + | Preferred Language | Unknown | + + + | Marital Status | | + + + | Taoist Affiliation | 1028 | + + + [...] + +---------+ + | Leandro Carrizales | Unknown | | + + +---------+ + Care Team Providers + +------+ + | Care Glass Cutting Machine Feeder Name | Role | Phone | [...] | | | | [address] | [place] [address] | | | | | [place], [place] | [phone] | | | | | [address] | | | | | | [phone] | | | +--------+ + + + [...] Surgery | Dariel Hendrix, | | | 2019 | Visit | | MD [address] | | | | | | [place] [address] | | | | | | [phone] | | | | | | | [...] Y. Comparison Exam: 10/25/2017, | | | [facility].. Findings: The patient status post left [...] created this entry | | | using Nightpro Recognition software and [email or web address] | | | macros. The entry has [...] scapular Y. | | Comparison Exam: 10/25/2017, [facility].. Findings: The patient status post | [...] has created this | | entry using Dragon Medical VoiceRecognition software and [email or web address] macros. The entry | | has been [...] HENDRIX MD has created this entry using [employer] Voice | |Recognition software and [email or web address] macros. The entry has been reviewed and | |there may still exist sound alike word errors. | | | + + documented in this encounter Visit Diagnoses Not on filedocumented in this encounter"
--- OUTSIDE RECORDS SUMMARY | ~2019-06-11 | XMS | Clinical Summary ---
Demographics + + + | Address | [address] | | | [place] [address] | + + + | Home Phone | | + + + | Preferred Language | Unknown | + + + | Marital Status | | + + + | Christian Affiliation | 1028 | + + + | Race | Unknown | + + + | Ethnic Group | Unknown | + + + Author + + + | Author | [facility] | | | and [place] | + + + | Organization | [facility] | | [...] Team Providers + +------+ + | Care Industrial Relations Commissioner Name | Role | Phone | + [...] + | Paternal Grandmother | | | [place] | | | | (Age | | [...] | | 2018 | Visit | | [address] | | | | | | [place] [address] | | | | | | [phone] | | | | | | | [...] N/A: | RTI | | 07/11/ | [id number] | | [id number]: Qty: 1 | | Spine | BIOLOGICS | | 2020 | | | on 12/14/2015 by Dariel Garcia | | Lumbar | INC - RBIO | | | /[id number] | | MD Mary | | | | | | 7-054 | | | | | | | | / | + +--------+--------+ +--------+--------+--------+ | Imp Spn Intbdy Xlw | Generi | N/A: | PINGVASIVE - | | | [id number] | | [id number] - | c | Spine | NVSV | | | 5 / / | | [id number]: Qty: 1 on | | Lumbar | | | | | | 12/14/2015 by Dariel Garcia, | | | | | | | | MD | | | | | | | + +--------+--------+ +--------+--------+--------+ | Hector Ti Prebent Lordtc 60mm - | Generi | N/A: | NUVASIVE - | | | [id number] | | [id number]: Qty: 2 on | c | Spine | NVSV | | | 0 / / | | 12/14/2015 by Dariel Garcia, | | Lumbar | | | | | | MD | | | | | | | + +--------+--------+ +--------+--------+--------+ | Graft Infuse Bone Kit Xs - | Graft | N/A: | SOFAMOR | | 08/10/ | [id number] | | [id number]: Qty: 1 on | | Spine | DANEK - DIV | | 2015 | 0 / | | 12/14/2015 by Dariel Garcia, | | Lumbar | [employer] | | | /[id number] | | MD | | | - SFDK | | | 47AAL | + +--------+--------+ +--------+--------+--------+ | Putjaime [place] 10cc Dbm - | Graft | N/A: | MEDTRONIC - | | 08/03/ | [id number] | | [id number]: Qty: 1 | | Spine | MEDT [...] N/A: | NUVASIVE - | | | [id number] | | [id number]: Qty: 2 | | Spine | NVSV | | | 5A / / | | on 12/14/2015 by Dariel Garcia | | Lumbar | | | | | | AMD | | | | | | | + +--------+--------+ +--------+--------+--------+ | Screw Polyax Prcpt 7.5x50mm - | Screw | N/A: | NUVASIVE - | | | [id number] | | [id number]: Qty: 2 | | Spine | NVSV | | | 0A / / | | on 12/14/2015 by Dariel Garcia | | Lumbar | | | | | | A, MD | | | | | | | + +--------+--------+ +--------+--------+--------+ | Screw Polyax Precept 7.5x55 - | Screw | N/A: | NUVASIVE - | | | [id number] | | [id number]: Qty: 2 | | Spine | NVSV | | | 5A / / | | on 12/14/2015 by Dariel Garcia | | Lumbar | | | | | | A, MD | | | | | | | + +--------+--------+ +--------+--------+--------+ | Screw Set - | Screw | N/A: | NUVASIVE - | | | [id number] | | [id number]: Qty: 6 on | | Spine | NVSV | | | 0 / / | | 12/14/2015 by Dariel Garcia, | | Lumbar | | | | | | MD | | | | | | | + +--------+--------+ +--------+--------+--------+ | Willy Chinn Pls 1cc Aseptic | | N/A: | OSTEOTECH - | | 09/17/ | [id number] | | - [id number]: Qty: | | Spine | OSTT | | 2017 | | | 1 on 04/30/2015 by Jose, | | Emily | | | | /[id number] | | Dariel Hernandez MD | | al | | | | 9-140 | | | | | | | | / | + +--------+--------+ +--------+--------+--------+ | Allograft Lordotic [id number] - | | N/A: | SOFAMOR | | 11/19/ | [id number] | | [id number]: Qty: 1 on | | Spine | DANEK - DIV | | 2017 | | | 04/30/2015 by Dariel Garcia, | | Emily | [employer]IC | | | /[id number] | | | | al | - SFDK | | | 564 | | | | | | | | /[id number] | | | | | | | | 5449 | + +--------+--------+ +--------+--------+--------+ | Allograft Lordotic [id number] - | | N/A: | SOFAMOR | | 11/19/ | [id number] | | [id number]: Qty: 1 on | | Spine | DANEK - DIV | | 2017 | | | 04/30/2015 by Dariel Garcia, | | Emily | [employer] | | | /[id number] | | | | al | - SFDK | | | 562 | | | | | | | | /[id number] | | | | | | | | 5449 | + +--------+--------+ +--------+--------+--------+ | Imp Spn Plt Ti Zevo 37mm 2lvl | | N/A: | SOFAMOR | | | [id number] | | - [id number]: Qty: 1 | | Spine | DANEK - DIV | | | 7 / / | | on 04/30/2015 by Dariel Garcia | | Emily | [employer] | | | | | MD Mary | | peter | - SFDK | | | | + +--------+--------+ +--------+--------+--------+ | Screw D-Thrd Slf-Drl 3.5x15mm | | N/A: | SOFAMOR | | | [id number] | | - [id number]: Qty: 4 | | Spine | DANEK - DIV | | | 5 / / | | on 04/30/2015 by Dariel Garcia | | Emily | [employer] | | | | | MD Mary | | al | - SFDK | | | | + +--------+--------+ +--------+--------+--------+ | Screw D-Thrd Slf-Drl 4.0x15mm | | N/A: | SOFAMOR | | | [id number] | | - [id number]: Qty: 2 | | Spine | DANEK - DIV | | | 5 / / | | on 04/30/2015 by Dariel Garcia | | Kimic | [employer] | | | | | MD Mary | | al | - SFDK | | | | + +--------+--------+ +--------+--------+--------+ | Tlif Oblique [id number] 12deg | | N/A: | SAMUEL - | | | [id number] | | - [id number]: Qty: 1 | | Spine | NVSV | | | 2 / / | | on 12/14/2015 by Dariel Garcia | | Lumbar | | | | | | MD Mary | | | | | | | + +--------+--------+ +--------+--------+--------+ | Flex Shoulder System Aequalis | | Left: | MARIAMA - | | 06/02/ | [id number] | | Humeral HeadImplanted: Qty: | | Should | TRNR | | 2020 | | | 1 on 01/03/2017 by Hu Quintero | | er | | | | /[id number] | | MD Duc | | | | | | [id number] / | + +--------+--------+ +--------+--------+--------+ | Imp Shldr Evin Ars Perfrm S35 | | Left: | MARIAMA - | | 09/13/ | [id number] | | - [id number]: Qty: | | Should | TRNR | | 2 | | | 1 on 01/03/2017 by Hu Quintero | | er | | | | /[id number] | | MD Duc | | | | | | 3019 / | + +--------+--------+ +--------+--------+--------+ | Ciro Bone Simplex 09/12 Dose - | | Left: | YANELY | | 01/08/ | 6188-1 | | [id number]: Qty: 1 on | | Should | [...] | MARIAMA - | | 11/08/ | [id number] | | - [id number]: Qty: | | Should | TRNR | [...] Y. Comparison Exam: 10/25/2017, | | | [facility].. Findings: The patient status post left [...] created this entry | | | using Sleep.FM Voice Recognition software and Best Bid | | | macros. The entry has [...] scapular Y. | | Comparison Exam: 10/25/2017, [facility].. Findings: The patient status post | [...] has created this | | entry using TerraSkyognition software and Best Bid macros. The entry | | has been [...] HENDRIX MD has created this entry using Sleep.FM Voice | |Recognition software and [employer] Insider. The entry has been reviewed and | [...] +--------+ +---------+--------+ | MEDICARE | MEDICA | [id number] | 01/10/20 | [phone] | | Medica | | | RE | | 02-Pre | 5 | | re | | | PART A | | sent | | | | | | AND B | | | | | | + +--------+ +--------+ +---------+--------+ | [employer] | TRANSA | [id number] | 02/10/20 | | | Indemn | [...] | | al/Fam | | 1935 | [phone] | [place] | | | [place] | | | 5 (Home) | [address] | + +--------+ +--------+ + + Advance Directives Patient has advance care planning documents, and code status on file. For more information, please contact:[facility] [place] [address] + + + + + | Code [...]
--- OUTSIDE RECORDS SUMMARY | ~2019-06-11 | XMS | Clinical Summary ---
Demographics + + + | Address | [address] | | | [place] [address] | + + + | Home Phone | | + + + | Preferred Language | Unknown | + + + | Marital Status | | + + + | Alevism Affiliation | 1028 | + + + | Race | Unknown | + + + | Ethnic Group | Unknown | + + + Author + + + | Author | [id number] (Historical as of | | | 04-27-19) | + + + | Organization | [facility] (Historical as of | | | 04-27-19) [...] Team Providers + +------+ + | Care Abrasives Sales Representative Name | Role | Phone | [...] | | 01/08/ | 6188-1 | | [id number]: Qty: 1 on | | Should | [...] | SOPHYER - | | 11/08/ | [id number] | | - [id number]: Qty: | | Should | TRNR | | 2020 | C | | 1 on 01/03/2017 by Hu Quintero | | er | | | | /[id number] | | MD Duc | | | | | | P014 / | + +------+--------+ +--------+--------+--------+ | Flex Shoulder System Aequalis | | Left: | MARIAMA - | | 06/02/ | [id number] | | Humeral HeadImplanted: Qty: | | Should | TRNR | | 2020 | | | 1 on 01/03/2017 by Hu Quintero | | er | | | | /[id number] | | MD Duc | | | | | | R002 / | + +------+--------+ +--------+--------+--------+ | Imp Conchita Sykes Perfrm S35 | | Left: | SOPHYER - | | 09/13/ | [id number] | | - [id number]: Qty: | | Should | TRNR | [...] Y. Comparison Exam: 10/25/2017, | | | [facility].. Findings: The patient status post left [...] HENDRIX MD has created this entry using [employer] | | | Voice Recognition software and Aristos Logic macros. The entry has been | | [...] HENDRIX MD has created this entry using [employer] | | |Recognition software and Pinocular. The entry has been reviewed and | | |there may still exist sound alike word errors. | | | | | + + + + + + + + | Performing | Address | City/State/[facility] | Phone Number | | Organization | | | | + + + + + | [facility] | [address] | [place] [address] | | + + + + + [...] +------+-------+ + | MEDICARE | MEDICA | [id number] | | | [address] | | | RE | | | | [place] [address] | | | IP-OP | | | [...] Self | [birth year] Home: | [address] | | | al/Fam | | 1935 | [phone] [place] | | | [place] | | | [phone] | [phone] | + +--------+ +--------+ + +
--- OUTSIDE RECORDS SUMMARY | ~2019-06-11 | XMS | Encounter Summary ---
Demographics + + + | Address | [address] | | | [place] [address] | + + + | Home Phone [...] Team Providers + +------+ + | Care K 9 Police Officer Name | Role | Phone | [...] | | | | [address] | [place] [address] | | | | | [place], [place] | [phone] | | | | | [address] | | | | | | [phone] | | | +--------+ + + + [...] [address] | | | | | | [place] [address] | | | | | | [phone] | | | | | | | [...] Y. Comparison Exam: 10/25/2017, | | | [facility].. Findings: The patient status post left [...] created this entry | | | using Innov [employer] Systems Recognition software and Gentis | | | macros. The entry has [...] scapular Y. | | Comparison Exam: 10/25/2017, [facility].. Findings: The patient status post | [...] entry using Dragon Medical VoiceRecognition software and Gentis macros. The entry | | has been [...] HENDRIX MD has created this entry using Vello Systems Voice | |Recognition software and Gentis macros. The entry has been reviewed and | |there may still exist sound alike word errors. | | | + + documented in this encounter Visit Diagnoses Not on filedocumented in this encounter"
--- OUTSIDE RECORDS SUMMARY | ~2019-06-11 | XMS | Encounter Summary ---
Demographics + + + | Address | [address] | | | [place] [address] | + + + | Home Phone [...] Team Providers + +------+ + | Care Plant Buyer Name | Role | Phone | + +------+ + | Ethan Solomon MD | PCP | | + +------+ + Encounter Details +--------+ + + + + | Date | Type | Department | Care Team | Description | +--------+ + + + + | 04/08/ | Orders Only | [facility] | Provider, | | | 2019 | | SYSTEM GENERIC OP | [address] | | | | | CONVERSION [address] | [place] [address]. | | | | | [address] [place], [place] | [place] [address] | | | | | [address] | | | | | | [phone] | | | +--------+ + + + [...] | | 2019 | Visit | | [address] | | | | | | [place] [address] | | | | | | [phone] | | | | | | | | +--------+---------+ + + + documented as of this encounter Visit Diagnoses Not on filedocumented in this encounter"
[~2019-06-11 12:55] MED LIST changes: +LEXAPRO10 MG PO; +PAROXETINE HCL40 MG PO; +[UNRECOGNIZED DRUG - OTHER] OPTH
--- NOTE | 2019-06-11 20:39 | EKG ---
[facility] [address] [facility] [place] [address] Signed Normal sinus rhythm Pulmonary disease pattern Left anterior fascicular block Abnormal ECG When compared with ECG of 15-MAY-2019 16:19, [place] interval has decreased Incomplete right bundle branch block is no longer present Confirmed by LAYLA HARRINGTON MD ([id number]) on 06/11/2019 8:39:42 PM Electronically Signed By: LAYLA HARRINGTON MD 06/11/19 2039 PATIENT NAME: MARY DUKE SUNG Electrocardiogram DATE OF : 39 PHYSICIAN: LAYLA HARRINGTON MD REPORT #: [id number] REPORT IS CONFIDENTIAL AND NOT TO BE RELEASED WITHOUT AUTHORIZATION
== END 2019-06-11 14:51 | disposition home or self-care (01) ==
LOC: ED 12:55
DX: M94.0 Chondrocostal junction syndrome [Tietze] (principal); Z88.0 Allergy status to penicillin; Z88.5 Allergy status to narcotic agent; Z79.899 Other long term (current) drug therapy
CPT/HCPCS: 71045; 93005; 93010; 96374; 99285-25; J1885

== ENCOUNTER 2019-10-17 11:11 | Emergency (ER) | payer MEDICARE, OTHER ==
[~2019-10-17] VITALS: Ht 165.1 cm; Wt 68.0 kg
[2019-10-17] MEDS ORDERED: TYLENOL325 MG PO (11:50)
[2019-10-17] MEDS ORDERED: BENADRYL25 MG PO (11:50)
[2019-10-17] MEDS ORDERED: POTASSIUM99 M1 PO (11:51)
[2019-10-17] MEDS ORDERED: TURMERIC500 M2 PO (11:52)
[2019-10-17] MEDS ORDERED: MULTIVITAMINS1 EAC7 PO (11:52)
[2019-10-17] MEDS ORDERED: MELATONIN10 M2 PO (11:52)
[2019-10-17] MEDS ORDERED: OXYCODONE HCL5 MG PO (14:32)
== END 2019-10-17 15:00 | disposition home or self-care (01) ==
LOC: ED 11:11
DX: R07.89 Other chest pain (principal); Z88.0 Allergy status to penicillin; Z88.5 Allergy status to narcotic agent; Z79.899 Other long term (current) drug therapy
CPT/HCPCS: 71101; 80053; 81001; 82550; 85025; 96361; 96374; 99285-25; J1885; J7040

== ENCOUNTER 2020-05-20 17:11 | Emergency (ER) | payer MEDICARE, OTHER ==
[~2020-05-20] VITALS: Ht 165.1 cm; Wt 71.7 kg
--- OUTSIDE RECORDS SUMMARY | ~2020-05-20 | XMS | Encounter Summary ---
Demographics + + + | Address | [address] | | | [place] [address] | + + + | Home Phone | | + + + | Preferred Language | Unknown | + + + | Marital Status | | + + + | Church Affiliation | 1028 | + + + | Race | White | + + + | Ethnic Group | Not or | + + + Author + + + | Author | [facility] | | | and [place] | + + + | Organization | [facility] | | | and [...] Team Providers + +------+ + | Care Workforce Management Consultant Name | Role | Phone | + +------+ + | Ethan Solomon MD | PCP | | + +------+ + Encounter Details +--------+ + + + + | Date | Type | Department | Care Team | Description | +--------+ + + + + | 01/24/ | Orders Only | [facility] | Hu Quintero MD | | | 2016 | | VASCULAR SURGERY | [address] | | | | | [address] | [place], [place] | | | | | [address] | [address] | | | | | [place], [place] | | | | | | [address] | | | | | | [phone] | | | +--------+ + + + [...] do you have serious | No | 12/16/2015 | | difficulty hearing? | | | + + + + | Are you blind or do you have serious | No | 12/16/2015 | | difficulty seeing, even when wearing | | | | glasses? | | | + + + + | Do you have serious difficulty walking or | No | 12/16/2015 | | climbing stairs? (5 years old or older) | | | + + + + | Do you have difficulty dressing or bathing? | No | 12/16/2015 | | (5 years old or older) | | | + + + + | Because of a physical, mental, or emotional | No | 12/16/2015 | | condition, do you have difficulty [...] physical, mental, or emotional | No | 12/16/2015 | | condition, do you have serious [...] | + +--------+ + + + | US ARTERIAL UPPER | Routin | 01/24/2017 | | Results for this | | EXTREMITY UNILATERAL | e | 2:29 PM | | procedure are in the | | | | PDT | | results section. | + +--------+ + + + documented in this encounter Results US Arterial Upper Extremity Unilateral (01/24/2017 2:29 PM PDT) + + | Specimen | + + | | + + + + + | Impressions | Performed At | + + + | 1. Normal triphasic waveforms seen. Proximalmost anastomosis | | | demonstrates a greater than three fold peak systolic flow velocity | | | increase, which is due to a greater than 50% narrowing, potentially | | | from caliber change of the vessel. 2. Patent bypass graft. | | | | | + + + + + + | Narrative | Performed At | + + + | [facility] CAR[facility]ZAL[facility] US UPPER EXTREMITY ARTERIAL UNILATERAL 01/24/2017 | | | 2:29 PM HISTORY: 82 years. Female. Status post left axillary | | | brachial RSVG. TECHNIQUE: Imaging was performed using a linear | | | array transducer. Oconnell scale, color flow, and power Doppler techniques | | | utilized. COMPARISON: None. FINDINGS: RIGHT ARM: | | | Subclavian distal: PSV: 84 (cm/s). Flow: Triphasic. Axillary-proximal | | | anastomosis: PSV: 253 (cm/s). Flow: Triphasic. Graft proximal: PSV: | | | 175 (cm/s). Flow: Triphasic. Graft mid: PSV: 129 (cm/s). Flow: | | | Triphasic. Graft distal: PSV: 84 (cm/s). Flow: Triphasic. | | | Anastomosis distal: PSV: 126 (cm/s). Flow: Triphasic. Brachial | | | outflow: PSV: 130 (cm/s). Flow: Triphasic. Brachial distal: PSV: 56 | | | (cm/s). Flow: Triphasic. Radial artery: PSV: 59 (cm/s). Flow: | | | Triphasic. Ulnar artery: PSV: 51 (cm/s). Flow: Triphasic. | | + + + + + | Procedure Note | + + | Brian, Rad Conversion - 05/02/2019 6:50 PM PDT MELL[facility] HERNANDEZ UPPER EXTREMITY | | ARTERIAL UNILATERAL01/24/2017 2:29 PM HISTORY:82 years. Female. Status post left | | axillary brachial RSVG. TECHNIQUE:Imaging was performed using a linear array transducer. | | Oconnell scale, color flow, and power Doppler techniques utilized. COMPARISON:None. | | FINDINGS: RIGHT ARM:Subclavian distal: PSV: 84 (cm/s). Flow: Triphasic.Axillary-proximal | | anastomosis: PSV: 253 (cm/s). Flow: Triphasic.Graft proximal: PSV: 175 (cm/s). Flow: | | Triphasic.Graft mid: PSV: 129 (cm/s). Flow: Triphasic.Graft distal: PSV: 84 (cm/s). | | Flow: Triphasic.Anastomosis distal: PSV: 126 (cm/s). Flow: Triphasic.Brachial outflow: | | PSV: 130 (cm/s). Flow: Triphasic.Brachial distal: PSV: 56 (cm/s). Flow: Triphasic.Radial | | artery: PSV: 59 (cm/s). Flow: Triphasic.Ulnar artery: PSV: 51 (cm/s). Flow: Triphasic. | | IMPRESSION: 1. Normal triphasic waveforms seen. Proximalmost anastomosis demonstrates a | | greater than three fold peak systolic flow velocity increase, which is due to a greater | | than 50% narrowing, potentially from caliber change of the vessel. 2. Patent bypass | | graft. | | | |RIGHT ARM: | |Subclavian distal: PSV: 84 (cm/s). Flow: Triphasic. | |Axillary-proximal anastomosis: PSV: 253 (cm/s). Flow: Triphasic. | |Graft proximal: PSV: 175 (cm/s). Flow: Triphasic. | |Graft mid: PSV: 129 (cm/s). Flow: Triphasic. | |Graft distal: PSV: 84 (cm/s). Flow: Triphasic. | |Anastomosis distal: PSV: 126 (cm/s). Flow: Triphasic. | |Brachial outflow: PSV: 130 (cm/s). Flow: Triphasic. | |Brachial distal: PSV: 56 (cm/s). Flow: Triphasic. | |Radial artery: PSV: 59 (cm/s). Flow: Triphasic. | |Ulnar artery: PSV: 51 (cm/s). Flow: Triphasic. | | | |IMPRESSION: | |1. Normal triphasic waveforms seen. Proximalmost anastomosis demonstrates a greater than t hree fold peak systolic flow velocity increase, which is due to a greater than 50% narrowing , potentially from caliber change of the vessel. | | | |2. Patent bypass graft. | | | | | + + documented in this encounter Visit Diagnoses Not on filedocumented in this encounter"
--- OUTSIDE RECORDS SUMMARY | ~2020-05-20 | XMS | Encounter Summary ---
Demographics + + + | Address | [address] | | | [place] [address] | + + + | Home Phone | | + + + | Preferred Language | Unknown | + + + | Marital Status | | + + + | Anabaptist Affiliation | [id number] | + + + | Race | White | + + + | Ethnic Group | Not or | + + + Author + + + | Author | [facility] | | | and [place] | + + + | Organization | [facility] | | | and [place] | + + + | Address | Unknown | + + + | Phone | Unavailable | + + + Support + + +---------+ + | Name | Relationship | Address | Phone | + + +---------+ + | Leandro Maldonadoludwin | ECON | Unknown | | + + +---------+ + Care Team Providers + +------+ + | Care Radio Talk Show Host Name | Role | Phone | + +------+ + | Paul Hogan MD | PCP | | + +------+ + Encounter Details +--------+ + + + + | Date | Type | Department | Care Team | Description | +--------+ + + + + | 04/24/ | Hospital | [facility] | Umer Garcia MD | Cervical spondylosis | | 2015 | Encounter | [facility] | [address] | with radiculopathy; | | | | [address] | [place] [address] | Cervical | | | | [place] | [phone] | spondylosis with | | | | [address] | | myelopathy; | | | | [phone] | | Degenerative disc | | | | | | disease, cervical; | | | | | | Foraminal stenosis | | | | | | of cervical region | +--------+ + + + + Social [...] +---------+ + + | cyclobenzaprine | Take 1 tablet by | 90 | 3 | 05/01/20 | | | (FLEXERIL) 10 mg | mouth nightly. | tablet | | 15 | 6 | | tablet | | | | | | + + + +---------+ + + | cyclobenzaprine | Take 10 mg by mouth | | 0 | 05/25/20 | | | (FLEXERIL) 10 mg | nightly. | | | 12 | 5 | | tablet | | | | | | + + + +---------+ + + | furosemide (LASIX) | Take 40 mg by mouth | | 0 | 05/25/20 | | | 40 mg tablet | Daily. | | | 12 | 9 | + + + +---------+ + + | | Take 1-2 tablets by | 120 | 0 | 05/01/20 | | | HYDROcodone-acetamin | mouth every 4 hours | tablet | | 15 | 5 | | ophen (NORCO) 10-325 | as needed for Pain. | | | | | | mg per tablet | | | | | | + + + +---------+ + + | | Take 1-2 tablets by | 90 | 0 | 04/24/20 | | | HYDROcodone-acetamin | mouth every 4 hours | tablet | | 15 | 5 | | ophen (NORCO) 5-325 | as needed for Pain. | | | | | | mg per tablet | | | | | | + + + +---------+ + + | KRILL OIL 1000 MG | Take 1,000 mg by | | 0 | 05/25/20 | | | CAPS | mouth Daily. | | | 12 | 6 | + + + +---------+ + + | lactulose 10 g/15 | Take 30 mLs by mouth | 240 mL | 0 | 05/01/20 | | | mL solution | Daily as needed for | | | 15 | 5 | | | up to 10 days. | | | | | + + + +---------+ + + | levothyroxine | Take 25 mcg by mouth | | 0 | | | | (SYNTHROID, | every morning | | | | 9 | | LEVOTHROID) 25 mcg | (before breakfast). | | | | | | tablet | | | | | | + + + +---------+ + + | lisinopril | Take 20 mg by mouth | | 0 | 05/25/20 | | | (PRINIVIL, ZESTRIL) | 2 times daily. | | | 12 | 6 | | 20 mg tablet | | | | | | + + + +---------+ + + | LORazepam (ATIVAN) | Take 1 tablet by | 2 | 0 | 03/09/20 | | | 0.5 mg tablet | mouth once as needed | tablet | | 15 | 6 | | | for Anxiety or | | | | | | | Insomnia (Take 1 | | | | | | | tablet 30 minutes | | | | | | | prior to MRI. May | | | | | | | repeat once as | | | | | | | needed) for up to 1 | | | | | | | dose. | | | | | + + [...] + + + +---------+ + + | simvastatin | Take 10 mg by mouth | | 0 | 05/25/20 | | | (ZOCOR) 10 mg tablet | Daily. | | | 12 | 6 | + + + +---------+ + + documented as of this encounter Plan of Treatment Not on filedocumented as of this encounter Procedures + +--------+ + + + | Procedure Name | Priori | Date/Time | Associated Diagnosis | Comments | | | ty | | | | + +--------+ + + + | XR CHEST PA AND | Routin | 04/24/2015 | Cervical | Results for this | | LATERAL | e | 1:26 PM | spondylosis with | procedure are in the | | | | PDT | radiculopathy | results section. | | | | | Cervical spondylosis | | | | | | with myelopathy | | | | | | Degenerative disc | | | | | | disease, cervical | | | | | | Foraminal stenosis | | | | | | of cervical region | | + +--------+ + + + documented in this encounter Results XR Chest PA and Lateral (04/24/2015 1:26 PM PDT) + + | Specimen | + + | | + + + + + | Narrative | Performed At | + + + | XR CHEST PA AND LATERAL 04/24/2015 1:26 PM HISTORY: preoperative | [facility] | | clearance. COMPARISON: None. Findings: The heart is enlarged. | [facility] | | There is atherosclerosis of the aorta. Mediastinum is unremarkable. | [facility] | | Central pulmonary vasculature is normal. Mild scarring is in the | - IMAGING | | lateral aspect of the right mid lung. The left lung is clear. No | | | pleural effusion or pneumothorax is observed. There is mild to | | | moderate spondylosis. Old fractures are present of the bilateral | | | seventh ribs. IMPRESSION - No acute findings. Cardiomegaly. | | | Dictated and Signed by: John Toney MD Electronically signed: | | | 04/24/2015 3:11 PM | | + + + + + | Procedure Note | + + | Brian, Rad Results In - 04/24/2015 3:15 PM PDT XR CHEST PA AND LATERAL 04/24/2015 1:26 | | PMHISTORY: preoperative clearance.COMPARISON: None.Findings:The heart is enlarged. There | | is atherosclerosis of the aorta. Mediastinum isunremarkable. Central pulmonary | | vasculature is normal. Mild scarring is in thelateral aspect of the right mid lung. The | | left lung is clear. No pleuraleffusion or pneumothorax is observed. There is mild to | | moderate spondylosis. Oldfractures are present of the bilateral seventh ribs.IMPRESSION | | -No acute findings.Cardiomegaly.Dictated and Signed by: John Toney MD Electronically | | signed: 04/24/2015 3:11 PM | |unremarkable. Central pulmonary vasculature is normal. Mild scarring is in the | |lateral aspect of the right mid lung. The left lung is clear. No pleural | |effusion or pneumothorax is observed. There is mild to moderate spondylosis. Old | |fractures are present of the bilateral seventh ribs. | | | |IMPRESSION - | |No acute findings. | | | |Cardiomegaly. | | | |Dictated and Signed by: John Toney MD | | Electronically signed: 04/24/2015 3:11 PM | + + + + + + + | Performing | Address | City/State/Zipcode | Phone Number | | Organization | | | | + + + + + | [facility] | [address] | [place] | [phone] | | [facility] | | [address] | | | - IMAGING | | | | + + + + + documented in this encounter Visit Diagnoses + + | Diagnosis | + + | Cervical spondylosis with radiculopathy Cervical spondylosis with myelopathy | + + | Cervical spondylosis with myelopathy | + + | Degenerative disc disease, cervical Degeneration of cervical intervertebral disc | + + | Foraminal stenosis of cervical region Spinal stenosis in cervical region | + + documented in this encounter"
--- OUTSIDE RECORDS SUMMARY | ~2020-05-20 | XMS | Clinical Summary ---
Demographics + + + | Address | [address] | | | [place] [address] | + + + | Home Phone | | + + + | Preferred Language | Unknown | + + + | Marital Status | | + + + | Yazidi Affiliation | 1028 | + + + | Race | White | + + + | Ethnic Group | Not or | + + + Author + + + | Author | [facility] | | | and [place] | + + + | Organization | [facility] | | [...] Team Providers + +------+ + | Care Gettering Filament Machine Operator Name | Role | Phone | + +------+ + | Ethan Solomon MD | PCP | | + +------+ + Allergies + + + +--------+ + | Active Allergy | Reactions | Severity | Noted | Comments | | | | | Date | | + + + +--------+ + | Codeine Sulfate | Nausea And Vomiting | Medium | | | + + + +--------+ + | Penicillin V | Swelling | Medium | | | | Potassium | | | | | + + + +--------+ + Medications + + + +---------+------+------+-------+ | Medication | Sig | Dispensed | Refills | Star | End | Statu | | | | | | t | Date | s | | | | | | Date | | | + + + +---------+------+------+-------+ | gabapentin | Take 300 mg by mouth | | 0 | 09/1 | | Activ | | (NEURONTIN) 300 mg | 2 times daily. | | | 4/20 | | e | | capsule | | | | 12 | | | + + + +---------+------+------+-------+ +---+ + | | Additional | | | InformationPatient | | | taking differently: | | | 600 mg Oral 3 TIMES | | | DAILY, Reported on | | | 07/17/2017 10:31 AM | +---+ + + + +---+---+------+---+-------+ | Acetaminophen | Take 1,000 mg by | | 0 | | | Activ | | (TYLENOL ARTHRITIS | mouth 3 times daily. | | | | | e | | PAIN PO) | | | | | | | + + +---+---+------+---+-------+ | losartan (COZAAR) | | | 0 | 10/12 | | Activ | | 50 mg tablet | | | | 20 | | e | | | | | | 19 | | | + + +---+---+------+---+-------+ | PARoxetine (PAXIL) | TK 1 T PO QAM | | 4 | 01/3 | | Activ | | 40 MG tablet | | | | 09/30 | | e | | | | | | 19 | | | + + +---+---+------+---+-------+ | furosemide (LASIX) | TK 1 T PO QD | | 4 | 02/09 | | Activ | | 20 mg tablet | | | | 03/30 | | e | | | | | | 19 | | | + + +---+---+------+---+-------+ | MELATONIN ER PO | Take 25 mg by mouth | | 0 | | | Activ | | | nightly. | | | | | e | + + +---+---+------+---+-------+ Active Problems + + + | Problem | Noted Date | + + + | Cervicalgia | 10/09/2018 | + + + | Acute pain of left shoulder | 01/11/2017 | + + + | Primary osteoarthritis of left shoulder | 01/11/2017 | + + + | Status post total replacement of left shoulder | 01/11/2017 | + + + | Arthropathy of left shoulder | 01/05/2017 | + + + | Injury of left axillary artery | 01/05/2017 | + + + | Essential hypertension, benign | 01/04/2017 | + + + | Insomnia due to medical condition | 01/04/2017 | + + + | S/P lumbar fusion | 01/19/2016 | + + + | BLILIE (obstructive sleep apnea) | 12/14/2015 | + + + | Chronic pain syndrome | 12/14/2015 | + + + | Lumbar radiculopathy | 12/03/2015 | + + + | Foraminal stenosis of lumbar region | 12/03/2015 | + + + | S/P cervical spinal fusion | 05/28/2015 | + + + | Cervical spondylosis with radiculopathy | 04/24/2015 | + + + | Cervical spondylosis with myelopathy | 04/24/2015 | + + + | Degenerative disc disease, cervical | 04/24/2015 | + + + | Foraminal stenosis of cervical region | 04/24/2015 | + + + | Facet arthropathy, lumbar | 03/03/2015 | + + + | Lower back pain | 06/03/2013 | + + + | SPINAL STENOSIS, LUMBAR | | + + + | BURSITIS, HIP | | + + + | DEGENERATIVE DISC DISEASE, LUMBAR SPINE | | + + + | Chronic bilateral low back pain | | + + + | OSTEOARTHRITIS, LUMBOSACRAL SPINE | | + + + Immunizations + + + + | Name | Administration Dates | Next Due | + + + + | INFLUENZA 67 Y OR >, | 07/17/2018 | | | TRIVALENT HIGH-DOSE | | | + + + + | INFLUENZA PF | 06/05/2017 | | | TRIVALENT(PED/ADOL/A | | | | DULT), PSKT | | | + + + + | PNEUMOCOCCAL | 01/04/2017 | | | POLYSACCHARIDE | | | | 23-VALENT (PPSV23) | | | + + + + | TDAP, (ADOL/ADULT) | 06/05/2017 | | + + + + Family History + + +------+ + | Medical History | Relation | Name | Comments | + + +------+ + | Kidney disease | Brother | | | + + +------+ + | Cancer | Brother | | | + + +------+ + | Schizophrenia | Daughter | | | + + +------+ + | Cancer | Father | | | + + +------+ + | Cancer | Mother | | Thyroid Cancer | + + +------+ + | Arthritis | Other | | | + + +------+ + | Hypertension | Other | | | + + +------+ + | Heart attack | Paternal | | | | | Grandfath | | | | | er | | | + + +------+ + + +------+ + + | Relation | Name | Status | Comments | + +------+ + + | Brother | | | Kidney failure | | | | (Age | | | | | 73) | | + +------+ + + | Brother | | | Cancer | | | | (Age | | | | | 65) | | + +------+ + + | Brother | | | | + +------+ + + | Brother | | | | + +------+ + + | Daughter | | Alive | | + +------+ + + | Father | | | Cancer | | | | (Age | | | | | 84) | | + +------+ + + | Maternal Grandfather | | | | | | | (Age | | | | | 84) | | + +------+ + + | Mother | | | Cancer | | | | (Age | | | | | 84) | | + +------+ + + | Other | | | | + +------+ + + | Other | | | | + +------+ + + | Paternal Grandfather | | | | + +------+ + + | Paternal Grandmother | | | SD | | | | (Age | | | | | 59) | | + +------+ + + | Son | | | accidental gunshot during a MVA | | | | (Age | | | | | 39) | | + +------+ + + | Son | | | unknown "stomach problem" | | | | (Age | | | | | 35) | | + +------+ + + | Son | | Alive | | + +------+ + + | Son | | Alive | | + +------+ + + Social History + +-------+ +--------+------+ [...] 1 Shots of liquor | 1.0 | Alcoholic | | | 0 Standard drinks | | Drinks/day: daily | | | or equivalent | | shot of strawberry | | | | | liqueur | + + +---------+ + + + + + | Alcohol Habits | Answer | Date Recorded | + + + + | How often do you have a drink containing | 4 or more times a week | 10/29/2019 | | alcohol? | | | + + + + | How many drinks containing alcohol do you | 1 or 2 | 10/29/2019 | | have on a typical day when you are | | | | drinking? | | | + + + + | How often do you have six or more drinks on | Never | 10/29/2019 | | one occasion? | | | + + + + + + + | Sex Assigned at | Date Recorded | | | | + + + | Not on file | | + + + Last Filed Vital Signs + + + + + | Vital Sign | Reading | Time Taken | Comments | + + + + + | Blood Pressure | 132/74 | 11/06/2019 2:06 PM | | | | | PST | | + + + + + | Pulse | 84 | 10/29/2019 1:39 PM | | | | | PST | | + + + + + | Temperature | 36 C (96.8 F) | 06/21/2019 2:26 PM | | | | | PDT | | + + + + + | Respiratory Rate | 12 | 06/21/2019 6:15 PM | | | | | PDT | | + + + + + | Oxygen Saturation | 97% | 10/29/2019 1:39 PM | | | | | PST | | + + + + + | Inhaled Oxygen | - | - | | | Concentration | | | | + + + + + | Weight | 72.1 kg (159 lb) | 11/06/2019 2:06 PM | | | | | PST | | + + + + + | Height | 165.1 cm (5' 5") | 11/06/2019 2:06 PM | | | | | PST | | + + + + + | Body Mass Index | 26.46 | 11/06/2019 2:06 PM | | | | | PST | | + + + + + Plan of Treatment + + + + + | Health Maintenance | Due Date | Last | Comments | | | | Done | | + + + + + | Vaccine: Zoster (1 | | | | | of 2) | 7 | | | + + + + + | Adult Annual | | | | | Wellness Visit | 5 | | | + + + + + | Vaccine: Influenza | | 08/01/20 | | | (#1) | 0 | 19, | | | | | 07/17/20 | | | | | 18, | | | | | 06/05/20 | | | | | 17 | | + + + + + | Med Mgmt: Cr | | 06/21/20 | | | | 0 | 19, | | | | | 01/05/20 | | | | | 17, | | | | | 01/05/20 | | | | | 17, | | | | | Addition | | | | | al | | | | | history | | | | | exists | | + + + + + | Med Mgmt: K | | 06/21/20 | | | | 0 | 19, | | | | | 01/05/20 | | | | | 17, | | | | | 01/05/20 | | | | | 17, | | | | | Addition | | | | | al | | | | | history | | | | | exists | | + + + + + | Med Mgmt: Na | | 06/21/20 | | | | 0 | 19, | | | | | 01/05/20 | | | | | 17, | | | | | 01/05/20 | | | | | 17, | | | | | Addition | | | | | al | | | | | history | | | | | exists | | + + + + + | Med Mgmt: eGFR | | 06/21/20 | | | | 0 | 19, | | | | | 01/05/20 | | | | | 17, | | | | | 01/05/20 | | | | | 17, | | | | | Addition | | | | | al | | | | | history | | | | | exists | | + + + + + | Medication | | 06/21/20 | | | Management | 0 | 19 | | + + + + + | Vaccine: | | 06/05/20 | | | Dtap/Tdap/Td (2 - | 7 | 17 | | | Td) | | | | + + + + + | Vaccine: | Completed | 01/05/20 | | | Pneumococcal 65+ | | 17 | | + + + + + Implants + +--------+--------+ +--------+--------+--------+ | Implanted | Type | Area | Manufacture | Device | Shelf | Model | | | | | r | | Expira | / | | | | | | Identi | tion | Serial | | | | | | fier | Date | / Lot | + +--------+--------+ +--------+--------+--------+ | Bone [employer] Chip 15cc 4-10mm - | Bone | N/A: | RTI | | 07/11/ | [id number] | | [id number]: Qty: 1 | | Spine | BIOLOGICS | | 2020 | | | on 12/14/2015 by Umer Garcia | | Lumbar | INC - RBIO | | | /[id number] | | MD Mary at [facility] | | | | | | 7-054 | | [facility] | | | | | | / | + +--------+--------+ +--------+--------+--------+ | Imp Spn Intbdy Xlw | Generi | N/A: | NUVASIVE - | | | [id number] | | [id number] - | c | Spine | NVSV | | | 5 / / | | [id number]: Qty: 1 on | | Lumbar | | | | | | 12/14/2015 by Umer Garcia, | | | | | | | | MD at [facility] | | | | | | | | [facility] | | | | | | | + +--------+--------+ +--------+--------+--------+ | Hector Ti Prebent Lordtc 60mm - | Generi | N/A: | NUVASIVE - | | | [id number] | | [id number]: Qty: 2 on | c | Spine | NVSV | | | 0 / / | | 12/14/2015 by Umer Garcia, | | Lumbar | | | | | | MD at [facility] | | | | | | | | [facility] | | | | | | | + +--------+--------+ +--------+--------+--------+ | Graft Infuse Bone Kit Xs - | Graft | N/A: | SOFAMOR | | 08/10/ | [id number] | | [id number]: Qty: 1 on | | Spine | DANEK - DIV | | 2015 | 0 / | | 12/14/2015 by Umer Garcia, | | Lumbar | [employer] | | | /[id number] | | MD at [facility] | | | - SFDK | | | 47AAL | | [facility] | | | | | | | + +--------+--------+ +--------+--------+--------+ | Guicho Lao 10cc Dbm - | Graft | N/A: | [employer] - | | 08/03/ | [id number] | | [id number]: Qty: 1 | | Spine | MEDT | | 2018 | | | on 12/14/2015 by Umer Garcia | | Lumbar | | | | /[id number] | | MD Mary at [facility] | | | | | | 1-024 | | [facility] | | | | | | / | + +--------+--------+ +--------+--------+--------+ | Screw Polyax Prcpt 7.5x45mm - | Screw | N/A: | NUVASIVE - | | | [id number] | | [id number]: Qty: 2 | | Spine | NVSV | | | 5A / / | | on 12/14/2015 by Umer Garcia | | Lumbar | | | | | | MD Mary at [facility] | | | | | | | | [facility] | | | | | | | + +--------+--------+ +--------+--------+--------+ | Screw Polyax Prcpt 7.5x50mm - | Screw | N/A: | NUVASIVE - | | | [id number] | | [id number]: Qty: 2 | | Spine | NVSV | | | 0A / / | | on 12/14/2015 by Umer Garcia | | Lumbar | | | | | | MD Mary at [facility] | | | | | | | | [facility] | | | | | | | + +--------+--------+ +--------+--------+--------+ | Screw Polyax Precept 7.5x55 - | Screw | N/A: | NUVASIVE - | | | [id number] | | [id number]: Qty: 2 | | Spine | NVSV | | | 5A / / | | on 12/14/2015 by Umer Garcia | | Lumbar | | | | | | MD Mary at [facility] | | | | | | | | [facility] | | | | | | | + +--------+--------+ +--------+--------+--------+ | Screw Set - | Screw | N/A: | NUVASIVE - | | | [id number] | | [id number]: Qty: 6 on | | Spine | NVSV | | | 0 / / | | 12/14/2015 by Umer Garcia | | Lumbar | | | | | | at [facility] | | | | | | | | [facility] | | | | | | | + +--------+--------+ +--------+--------+--------+ | Willy Cunningham Pls 1cc Aseptic | | N/A: | OSTEOTECH - | | 09/17/ | [id number] | | - [id number]: Qty: | | Spine | OSTT | | 2017 | | | 1 on 04/30/2015 by Jose, | | Emily | | | | /[id number] | | Umer Hernandez MD at [facility] | | al | | | | 9-140 | | [facility] | | | | | | / | + +--------+--------+ +--------+--------+--------+ | Allograft Lordotic [id number] - | | N/A: | SOFAMOR | | 11/19/ | [id number] | | [id number]: Qty: 1 on | | Spine | DANEK - DIV | | 2018 | | | 04/30/2015 by Umer Garcia, | | Emily | [employer] | | | /[id number] | | at [facility] | | al | - SFDK | | | 564 | | [facility] | | | | | | /[id number] | | | | | | | | 5449 | + +--------+--------+ +--------+--------+--------+ | Allograft Lordotic [id number] - | | N/A: | SOFAMOR | | 11/19/ | [id number] | | [id number]: Qty: 1 on | | Spine | DANEK - DIV | | 2018 | | | 04/30/2015 by Umer Garcia, | | Emily | [employer] | | | /[id number] | | at [facility] | | al | - SFD[facility] | | | 562 | | [facility] | | | | | | /[id number] | | | | | | | | 5449 | + +--------+--------+ +--------+--------+--------+ | Imp Spn Plt Ti Zevo 37mm 2lvl | | N/A: | SOFAMOR | | | [id number] | | - [id number]: Qty: 1 | | Spine | DANEK - DIV | | | | | on 04/30/2015 by Umer Garcia | | Emily | [employer] | | | | | MD Mary at [facility] | | al | - [facility] | | | | | [facility] | | | | | | | + +--------+--------+ +--------+--------+--------+ | Screw D-Thrd Slf-Drl 3.5x15mm | | N/A: | SOFAMOR | | | [id number] | | - [id number]: Qty: 4 | | Spine | DANEK - DIV | | | 5 / / | | on 04/30/2015 by Umer Garcia | | Emily | [employer] | | | | | MD Mary at [facility] | | al | - [facility] | | | | | [facility] | | | | | | | + +--------+--------+ +--------+--------+--------+ | Screw D-Thrd Slf-Drl 4.0x15mm | | N/A: | SOFAMOR | | | [id number] | | - [id number]: Qty: 2 | | Spine | DANEK - DIV | | | 5 / / | | on 04/30/2015 by Umer Garcia | | Kimic | [employer] | | | | | MD Mary at [facility] | | al | - [facility] | | | | | [facility] | | | | | | | + +--------+--------+ +--------+--------+--------+ | Tlif Oblique [id number] 12deg | | N/A: | NUVASIVE - | | | [id number] | | - [id number]: Qty: 1 | | Spine | NVSV | | | 2 / / | | on 12/14/2015 by Umer Garcia | | Lumbar | | | | | | MD Mary at [facility] | | | | | | | | [facility] | | | | | | | + +--------+--------+ +--------+--------+--------+ | Flex Shoulder System Aequalis | | Left: | MARIAMA - | | 06/02/ | [id number] | | Humeral HeadImplanted: Qty: | | Should | TRNR | | 2020 | | | 1 on 01/03/2017 by Hu Quintero | | er | | | | /[id number] | | MD Duc | | | | | | [id number] / | + +--------+--------+ +--------+--------+--------+ | Imp Conchita Sykes [facility] S35 | | Left: | MARIAMA - | | 09/13/ | [id number] | | - [id number]: Qty: | | Should | TRNR | | 2021 | | | 1 on 01/03/2017 by Hu Quintero | | er | | | | /[id number] | | MD Duc | | | | | | [id number] / | + +--------+--------+ +--------+--------+--------+ | Ciro Bone Simplex 1/2 Dose - | | Left: | YANELY | | 01/08/ | [id number] | | [id number]: Qty: 1 on | | Should | MEDICAL - | | 2019 | -001 / | | 01/03/2017 by Hu Quintero, | | er | STRY | | | | | | | | | | | /[id number] | | | | | | | | 6 | + +--------+--------+ +--------+--------+--------+ | Imp Shldr Hum Stem Flx Std 4c | | Left: | TORNIER - | | 11/08/ | [id number] | | - [id number]: Qty: | | Should | TRNR | | 2020 | C | | 1 on 01/03/2017 by Hu Quintero | | er | | | | /[id number] | | MD Duc | | | | | | [id number] / | + +--------+--------+ +--------+--------+--------+ Results Not on filefrom Last 3 Months Insurance + +--------+ +--------+ +---------+--------+ | Payer | Benefi | Subscriber | Effect | Phone | Address | Type | | | t Plan | ID | paz | | | | | | / | | Dates | | | | | | Group | | | | | | + +--------+ +--------+ +---------+--------+ | MEDICARE | MEDICA | [id number] | 02/10/20 | [phone] | | Medica | | | RE | | 02-Pre | 5 | | re | | | PART A | | sent | | | | | | AND B | | | | | | + +--------+ +--------+ +---------+--------+ | MEDICARE | MEDICA | [id number] | 02/10/20 | [phone] | | Medica | | | RE | | 02-Pre | 5 | | re | | | PART A | | sent | | | | | | AND B | | | | | | + +--------+ +--------+ +---------+--------+ | MEDICARE SUPPLEMENT | MEDICA | [id number] | 02/10/20 | [phone] | | Indemn | | OTHER | RE | | 19-Pre | 0 | | ity | | | SUPPLE | | sent | | | | | | MENT | | | | | | | | OTHER | | | | | | + +--------+ +--------+ +---------+--------+ | MEDICARE SUPPLEMENT | MEDICA | [id number] | Effect | [phone] | | Indemn | | OTHER | RE | | paz | 0 | | ity | | | SUPPLE | | for | | | | | | MENT | | all | | | | | | OTHER | | dates | | | | + +--------+ +--------+ +---------+--------+ + +--------+ +--------+ + + | Guarantor Name | Accoun | Relation to | Date | Phone | Billing Address | | | t Type | Patient | of | | | | | | | | | | + +--------+ +--------+ + + | Mellisa Carrizales | Person | Self [birth year] | [address] | | | al/Fam | | 1935 | [phone] | [place] | | | [place] | | | 5 (Home) | [address] | + +--------+ +--------+ + + | Mellisa Carrizales | Person | Self [birth year] [address] | | | al/Fam | | 1935 | [phone] | [place] | | | [place] | | | 5 (Home) | [address] | | | | | | [phone] | | | | | | | 8 (Work) | | + +--------+ +--------+ + + | Mellisa Carrizales | Person | Self [birth year] | [address] | | | al/Fam | | 1935 | [phone] | [place] | | | [place] | | | 5 (Home) | [address] | | | | | | [phone] | | | | | | | 8 (Work) | | + +--------+ +--------+ + + Advance Directives + + + + + | Type | Date Recorded | Patient | Explanation | | | | Shingle Catcher | | + + + + + | Power of | | | | | Branding Machine Tender | | | | + + + + + | Advance | 03/03/2015 12:56 | | @ home | | Directive | PM | | | + + + + + + + + + + | Code Status | Date | Date | Comments | | | Activated | Inactivated | | + + + + + | Full Code | 12/14/2015 | 12/16/2015 | | | | 9:18 PM | 7:25 PM | | + + + + + + + + +---+ | | | | | + + + +---+ | Full Code | 04/30/2015 | 05/01/2015 | | | | 11:42 AM | 2:29 PM | | + + + +---+
--- OUTSIDE RECORDS SUMMARY | ~2020-05-20 | XMS | Encounter Summary ---
Demographics + + + | Address | [address] | | | [place] [address] | + + + | Home Phone | | + + + | Preferred Language | Unknown | + + + | Marital Status | | + + + | Anabaptist Affiliation | 1028 | + + + | Race | White | + + + | Ethnic Group | Not or | + + + Author + + + | Author | [facility] | | | and [place] | + + + | Organization | [facility] | | [...] Team Providers + +------+ + | Care Electrician Marine Name | Role | Phone | + +------+ + | Ethan Solomon MD | PCP | | + +------+ + Encounter Details +--------+ + + + + | Date | Type | Department | Care Team | Description | +--------+ + + + + | /03/ | Orders Only | [facility] | Dariel Hendrix, | | | 2016 | | [facility] | MD [address] | | | | | [address] | [place] [address] | | | | | [place], [place] | [phone] | | | | | [address] | | | | | | [phone] | | | +--------+ + + + [...] + + + | XR SHOULDER LEFT 2 + | Routin | 01/11/2017 | | Results for this | | VW | e | 1:13 PM | | procedure are in the | | | | PDT | | results section. | + +--------+ + + + documented in this encounter Results XR Shoulder Left 2 + Vw (01/11/2017 1:13 PM PDT) + + | Specimen | + + | | + + + + + | Narrative | Performed At | + + + | History: This is a 82 y.o. year old female. Diagnosis for Order | | | ICD-10-CM 1. Acute pain of left shoulder M25.512 X-ray shoulder | | | left complete 2+v . Findings: 3 views left shoulder. AP, Grashey, | | | scapular Y. There is a total shoulder arthroplasty in place. This is | | | in good position. It is no evidence of failure or loosening of the | | | glenoid or humeral components. There is a residual inferior humeral | | | osteophyte.. Impression: Status post left total shoulder plasty as | | | above.. DARIEL HENDRIX MD 2017 | | + + + + + | Procedure Note | + + | Brian, Rad Conversion - 05/02/2019 6:50 PM PDT History: This is a 82 y.o. year old | | female. Diagnosis for Order ICD-10-CM1. Acute pain of left shoulder M25.512 X-ray | | shoulder left complete 2+v. Findings: 3 views left shoulder. AP, Grashey, scapular Y. | | There is a totalshoulder arthroplasty in place. This is in good position. It is | | noevidence of failure or loosening of the glenoid or humeral components.There is a | | residual inferior humeral osteophyte.. Impression: Status post left total shoulder | | plasty as above.. DARIEL HENDRIX MD2017 | |evidence of failure or loosening of the glenoid or humeral components. | |There is a residual inferior humeral osteophyte.. | | | |Impression: Status post left total shoulder plasty as above.. | | | | | |DARIEL HENDRIX MD | |2017 | | | + + documented in this encounter Visit Diagnoses Not on filedocumented in this encounter"
--- OUTSIDE RECORDS SUMMARY | ~2020-05-20 | XMS | Encounter Summary ---
Demographics + + + | Address | [address] | | | [place] [address] | + + + | Home Phone | | + + + | Preferred Language | Unknown | + + + | Marital Status | | + + + | Religion Affiliation | 1028 | + + + | Race | White | + + + | Ethnic Group | Not or | + + + Author + + + | Author | [facility] | | | and [place] | + + + | Organization | [facility] | | | [...] Team Providers + +------+ + | Care Lead Customer Service Representative Name | Role | Phone | + +------+ + | Ethan Solomon MD | PCP | | + +------+ + Encounter Details +--------+ + + + + | Date | Type | Department | Care Team | Description | +--------+ + + + + | 10/25/ | Orders Only | [facility] | Dariel Hendrix, | | | 2017 | | [facility] | MD [address] | | | | | [address] | [place] [address] | | | | | [place], [place] | [phone] | | | | | [address] | | | | | | [phone] | | | +--------+ + + + [...] SHOULDER LEFT 2 + | Routin | 10/25/2017 | | Results for this | | VW | e | 4:19 PM | | procedure are in the | | | | PST | | results section. | + +--------+ + + + documented in this encounter Results XR Shoulder Left 2 + Vw (10/25/2017 4:19 PM PST) + + | Specimen | + + | | + + + + + | Narrative | Performed At | + + + | History: This is a 82 y.o. year old female. Diagnosis for Order | | | ICD-10-CM 1. Primary osteoarthritis of left shoulder M19.012 X-ray | | | shoulder left complete 2+v 2. Status post total replacement of left | | | shoulder Z96.612 X-ray shoulder left complete 2+v . Findings: 3 | | | views left shoulder. AP, Grashey, scapular Y. Comparison views: | | | 04/10/2017. The patient is status post left total shoulder | | | arthroplasty. The components are in good position without evidence of | | | failure or loosening. There is no evidence of fracture or | | | dislocation. There are surgical clips in the axillary soft tissues | | | consistent with the previously discussed axillary artery dissection | | | and exploration. Bony mineralization is normal. Visualized lung | | | sneed are clear. Impression: Status post left total shoulder | | | arthroplasty, with good radiographic outcome.. DARIEL Wolf | | | MD LIBBY 10/25/2017 DARIEL HENDRIX MD has created this entry | | | using [employer] Voice Recognition software and [employer] | | | macros. The entry has been reviewed and there may still exist | | | sound alike word errors. | | + + + + + | Procedure Note | + + | Aleksander Torres Conversion - 05/02/2019 3:44 PM PDT History: This is a 82 y.o. year old | | female. Diagnosis for Order ICD-10-CM1. Primary osteoarthritis of left shoulder | | M19.012 X-ray shoulder leftcomplete 2+v2. Status post total replacement of left shoulder | | Z96.612 X-ray shoulderleft complete 2+v. Findings: 3 views left shoulder. AP, Grashey, | | scapular Y. Comparisonviews: 04/10/2017. The patient is status post left total | | shoulderarthroplasty. The components are in good position without evidence offailure or | | loosening. There is no evidence of fracture or dislocation.There are surgical clips in | | the axillary soft tissues consistent with thepreviously discussed axillary artery | | dissection and exploration. Bonymineralization is normal. Visualized lung sneed are | | clear. Impression: Status post left total shoulder arthroplasty, with goodradiographic | | outcome.. DARIEL HENDRIX MD10/25/2017 DARIEL HENDRIX MD has created this entry using | | [employer] VoiceRecognition software and [employer] macros. The entry has been | | reviewed andthere may still exist sound alike word errors. | |previously discussed axillary artery dissection and exploration. Bony | |mineralization is normal. Visualized lung sneed are clear. | | | |Impression: Status post left total shoulder arthroplasty, with good | |radiographic outcome.. | | | | | |DARIEL HENDRIX MD | |10/25/2017 | | | |DARIEL HENDRIX MD has created this entry using [employer] Voice | |Recognition software and [employer] macros. The entry has been reviewed and | |there may still exist sound alike word errors. | | | + + documented in this encounter Visit Diagnoses Not on filedocumented in this encounter"
--- OUTSIDE RECORDS SUMMARY | ~2020-05-20 | XMS | Encounter Summary ---
Demographics + + + | Address | [address] | | | [place] [address] | + + + | Home Phone | | + + + | Preferred Language | Unknown | + + + | Marital Status | | + + + | Mandaen Affiliation | 1028 | + + + | Race | White | + + + | Ethnic Group | Not or | + + + Author + + + | Author | [facility] | | | and [place] | + + + | Organization | [facility] | | [...] Team Providers + +------+ + | Care Qa Software Test Engineer Name | Role | Phone | + +------+ + | Ethan Solomon MD | PCP | | + +------+ + Encounter Details +--------+ + + + + | Date | Type | Department | Care Team | Description | +--------+ + + + + | 11/14/ | Orders Only | [facility] | Sarkis Garcia DNP | | | 2017 | | VASCULAR SURGERY | [address] | | | | | [address] | [place], [place] | | | | | [address] | [address] | | | | | [place], [place] | | | | | | [address] | | | | | | [phone] | | | +--------+ + + + [...] | US ARTERIAL UPPER | Routin | 11/14/2017 | | Results for this | | EXTREMITY UNILATERAL | e | 11:16 AM | | procedure are in the | | | | PST | | results section. | + +--------+ + + + documented in this encounter Results US Arterial Upper Extremity Unilateral (11/14/2017 11:16 AM PST) + + | Specimen | + + | | + + + + + | Impressions | Performed At | + + + | 1. Again, focal elevation is seen at the proximal anastomosis | | | which may reflect hemodynamically significant narrowing. | | | | | + + + + + + | Narrative | Performed At | + + + | [facility] [address] UPPER EXTREMITY ARTERIAL UNILATERAL | | | 11/14/2017 11:16 AM HISTORY: Follow-up of left axillary to brachial | | | graft COMPARISON: Ultrasound, 04/25/2017 TECHNIQUE: Imaging was | | | performed using a linear array transducer. Oconnell scale, color flow, | | | and power Doppler techniques utilized. FINDINGS: LEFT ARM: | | | Inflow: 43 cm/s, triphasic. Proximal anastomosis: 156, triphasic. | | | Proximal graft: 92, triphasic. Mid graft: 90, triphasic. Distal | | | graft: 70, triphasic. Distal anastomosis: 87, triphasic. Outflow: | | | 96, triphasic. | | + + + + + | Procedure Note | + + | Brian, Rad Conversion - 05/02/2019 3:44 PM PDT [facility] UPPER | | EXTREMITY ARTERIAL UNILATERAL11/14/2017 11:16 AM HISTORY: Follow-up of left axillary to | | brachial graft COMPARISON: Ultrasound, 04/25/2017 TECHNIQUE: Imaging was performed using | | a linear array transducer. Oconnell scale, color flow, and power Doppler techniques | | utilized. FINDINGS: LEFT ARM:Inflow: 43 cm/s, triphasic.Proximal anastomosis: 156, | | triphasic.Proximal graft: 92, triphasic.Mid graft: 90, triphasic.Distal graft: 70, | | triphasic.Distal anastomosis: 87, triphasic.Outflow: 96, triphasic. IMPRESSION: 1. | | Again, focal elevation is seen at the proximal anastomosis which may reflect | | hemodynamically significant narrowing. Electronically signed by David Villarreal MD on | | 11/14/2017 12:04 PM | | | |FINDINGS: | | | |LEFT ARM: | |Inflow: 43 cm/s, triphasic. | |Proximal anastomosis: 156, triphasic. | |Proximal graft: 92, triphasic. | |Mid graft: 90, triphasic. | |Distal graft: 70, triphasic. | |Distal anastomosis: 87, triphasic. | |Outflow: 96, triphasic. | | | |IMPRESSION: | |1. Again, focal elevation is seen at the proximal anastomosis which may reflect hemodynami kathy significant narrowing. | | | | | + + documented in this encounter Visit Diagnoses Not on filedocumented in this encounter"
--- OUTSIDE RECORDS SUMMARY | ~2020-05-20 | XMS | Encounter Summary ---
Demographics + + + | Address | [address] | | | [place] [address] | + + + | Home Phone | | + + + | Preferred Language | Unknown | + + + | Marital Status | | + + + | Holiness Affiliation | 1028 | + + + [...] Team Providers + +------+ + | Care Baker Doughnut Name | Role | Phone | + +------+ + | Ethan Solomon MD | PCP | | + +------+ + Reason for Visit + +--------+ + | Reason | Onset | Comments | | | Date | | + +--------+ + | Imaging Only | 08/01/ | | | | 2016 | | + +--------+ + Encounter Details +--------+ + + + + | Date | Type | Department | Care Team | Description | +--------+ + + + + | 08/01/ | Telephone | [facility] | Umer Garcia MD | Imaging Only | | 2017 | | NEUROSURGERY [address] | [address] | | | | | [address] | [place] [address] | | | | | [place] | [phone] | | | | | [address] | | | | | | [phone] | | | +--------+ + + + [...] this encounter Miscellaneous Notes Telephone Encounter - Lillian Narayanan, Middle School History Teacher - 08/07/2017 3:47 PM PSTCalled in Lorazepam 0.5 mg prescription to [facility] in [place]. Patient notified and verbalized u nderstanding. elephone Encounter - Aric Wilcox PA-C - 08/07/2017 12:50 PM PSTAtivan appr oved elephone E ncounter - Lillian Narayanan Medical Assistant - 08/07/2017 11:58 AM PSTMedication has not be en approved and the patient is scheduled to complete her MRI tomorrow, can you please review and advise. Thank you Electronically signed by Marcia Armstrong at 017 11:59 AM PSTTelephone Encounter - Elizabeth Fitch Medical Assistant - 08/01/2017 2:47 P M PSTPatient is having MRI done 08/08/2017 but she needs something to help her with her avril strophobia. Please advise.Electronically signed by Mracia Hutton at 08/01 2:53 PM PSTTelephone Encounter - Elizabeth Fitch Medical Assistant - 08/01/2017 2:08 PM PSTCalled patient regarding MRI of the cervical spine approval. Patient would like MRI o rders sent to [facility] and would like appointment Monday or in the morning. I a lso went through MRI hard stops with patient. She was yes to surgery in scan area (cervical spine surgery) and she is also Claustrophobic. documented in this encounter Plan of Treatment Not on filedocumented as of this encounter Visit Diagnoses Not on filedocumented in this encounter"
--- OUTSIDE RECORDS SUMMARY | ~2020-05-20 | XMS | Encounter Summary ---
Demographics + + + | Address | [address] | | | [place] [address] | + + + | Home Phone | | + + + | Preferred Language | Unknown | + + + | Marital Status | | + + + | Restorationist Affiliation | 1028 | + + + [...] Team Providers + +------+ + | Care Garageman Name | Role | Phone | + [...] | Telephone | [facility] [place] | mUer Garcia MD | Results, Imaging | | 2019 | | NEUROSURGERY [address] | [address] | | | | | [address] | [place] [address] | | | | | [place] | [phone] | | | | | [address] | | | | | | [phone] | | | +--------+ + + + [...] AM PSTCT of lumbar spine available on Efizity for review. elephone Encounter - Chrissy Ochoa Cert MA - 10/22/2018 11:57 AM PS TReport for lumbar CT received today from [facility]. Sent a request via Social[employer] for these images. O nce received will send to [facility] for review and advice on how to proceed. documented in this encounter Plan of Treatment Not on filedocumented as of this encounter Visit Diagnoses Not on filedocumented in this encounter"
--- OUTSIDE RECORDS SUMMARY | ~2020-05-20 | XMS | Encounter Summary ---
Demographics + + + | Address | [address] | | | [place] [address] | + + + | Home Phone | | + + + | Preferred Language | Unknown | + + + | Marital Status | | + + + | Rastafarian Affiliation | 1028 | + + + | Race | White | + + + | Ethnic Group | Not or | + + + Author + + + | Author | [facility] | | | and [place] | + + + | Organization | [facility] | | | and [...] Team Providers + +------+ + | Care Coding Technician Name | Role | Phone | + +------+ + | Paul Hogan MD | PCP | | + +------+ + Reason for Visit +---------+ + | Reason | Comments | +---------+ + | Post Op | 9m PO | +---------+ + Encounter Details +--------+---------+ + + + | Date | Type | Department | Care Team | Description | +--------+---------+ + + + | 10/20/ | Office | [facility] | Aric Wilcox | S/P lumbar fusion | | 2017 | Visit | NEUROSURGERY [address] | [address] | (Primary Dx); S/P | | | | [address] [place], [place] | cervical spinal | | | | [place], [place] | [address] | fusion; [place] | | | | [address] | | (obstructive sleep | | | | [phone] | | apnea); Cervical | | | | | | spondylosis with | | | | | | myelopathy | +--------+---------+ + + + Social History [...] + + + | Blood Pressure | 126/65 | 10/20/2016 10:38 AM | | | | | PST | | + + + + + | Pulse | 62 | 10/20/2016 10:38 AM | | | | | PST | | + + + + + | Temperature | - | - | | + + + + + | Respiratory Rate | 16 | 10/20/2016 10:38 AM | | | | | PST | | + + + + + | Oxygen Saturation | - | - | | + + + + + | Inhaled Oxygen | - | - | | | Concentration | | | | + + + + + | Weight | 78 kg (172 lb) | 10/20/2016 10:38 AM | | | | | PST | | + + + + + | Height | 165.1 cm (5' 5") | 10/20/2016 10:38 AM | | | | | PST | | + + + + + | Body Mass Index | 28.62 | 10/20/2016 10:38 AM | | | | | PST [...] + + documented as of this encounter Progress Notes Aric Wilcox PA-C - 10/20/2016 10:51 AM PSTFormatting of this note might be differ ent from the original. Aric Wilcox PA-C [address] [facility], [address] [place] [address] FAX: NEUROSURGERY FOLLOW-UP CHIEF COMPLAINT: Chief Complaint Patient presents with Post Op 9m PO HISTORY OF PRESENT ILLNESS: The patient is a 81 y.o. female that had a Cervical fusion fol lowed by a lumbar fusion for stenosis around 9 months ago for her most recent surgery was wh ich was a lumbar fusion. She returns and overall is doing okay. The patient complains of m ostly foot pain and leg edema. In addition she has pain in her shoulders. She became quite hypertensive when she was getting ready to have a shoulder surgery on her right shoulder. The surgery was aborted. She is currently working with a pain medicine clinic. The patient has not been walking as much as directed. She is still taking pain medications at this po int. The patient has had no issues with her surgical site. CURRENT MEDICATIONS: Current Outpatient Prescriptions Medication Sig Dispense Refill Acetaminophen (TYLENOL ARTHRITIS PAIN PO) Take 1,000 mg by mouth 3 times daily. aspirin 81 mg EC tablet Take 81 mg by mouth Daily. atorvaSTATin (LIPITOR) 20 mg tablet Take 20 mg by mouth Daily. 5 Calcium Citrate-Vitamin D (CITRACAL/VITAMIN D) 250-200 MG-UNIT TABS Take by mouth 2 ti mes daily. carbidopa-levodopa (SINEMET) 10-100 mg per tablet Take 1 tablet by mouth Daily. Cyanocobalamin (VITAMIN B 12 PO) Take 1 tablet by mouth Daily. dilTIAZem (CARDIZEM CD) 180 mg 24 hr capsule Take 180 mg by mouth Daily. DiphenhydrAMINE HCl (BENADRYL ALLERGY PO) Take 25 mg by mouth 4 times daily. Patient ta kes at night. furosemide (LASIX) 40 mg tablet Take 40 mg by mouth Daily. gabapentin (NEURONTIN) 300 mg capsule Take 300 mg by mouth 2 times daily. (Patient taki ng differently: Take 600 mg by mouth 4 times daily.) levothyroxine (SYNTHROID, LEVOTHROID) 25 mcg tablet Take 25 mcg by mouth every morning (before breakfast). losartan (COZAAR) 100 MG tablet Take 100 mg by mouth Daily. 6 melatonin 5 mg tablet Take 10 mg by mouth nightly. omeprazole (PRILOSEC) 20 mg capsule Take 20 mg by mouth Daily. oxyCODONE-acetaminophen (PERCOCET) 7.5-325 mg per tablet Take 7.5-325 tablets by mouth every 4 hours. 0 paroxetine (PAXIL) 30 MG tablet Take 30 mg by mouth Daily. potassium chloride (MICRO-K) 10 mEq CR capsule Take 10 mEq by mouth Daily. (Patient moises ing differently: Take 10 mEq by mouth as needed.) tiZANidine (ZANAFLEX) 4 mg tablet Take 0.5 tablets by mouth every 6 hours as needed. 90 tablet 1 VALERIAN PO Take 3 capsules by mouth nightly. No current facility-administered medications for this visit. ALLERGIES: Allergies Allergen Reactions Codeine Sulfate Nausea And Vomiting Penicillin V Potassium Swelling SOCIAL HISTORY: The patient reports that she has never smoked. She has never used smokeless tobacco. She r eports that she drinks about 0.6 oz of alcohol per week. She reports that she does not use i llicit drugs. INTERIM PHYSICAL EXAMINATION: Blood pressure 126/65, pulse 62, resp. rate 16, height 1.651 m (5' 5"), weight 78.019 kg (1 72 lb), not currently . Body mass index is 28.62 kg/(m^2). GENERAL: Mellisa Carrizales is in no acute distress with unlabored respirations. SPINE: The patient s incisions are healing well without drainage, significant erythema, o r discharge. EXTREMITIES: No lower extremity edema. NEUROLOGICAL EXAMINATION: MENTAL STATUS: The patient is awake, alert, and oriented. She follows simple and complex commands MOTOR EXAM: Motor strength is improved. SENSORY EXAM: The sensory examination is improved when compared to the preoperative exam. RADIOGRAPHIC REVIEW: The patient s x-rays show stable instrumentation and alignment and were reviewed with the patient today. There have been no interval changes since the immediate postoperative films . Complete fusion has not yet occurred, but this is normal and would not be expected at thi s time. ASSESSMENT: Encounter Diagnoses Name Primary? S/P lumbar fusion Yes S/P cervical spinal fusion BILLIE (obstructive sleep apnea) Cervical spondylosis with myelopathy Past Medical History Diagnosis Date DVT of leg (deep venous thrombosis) (HCC) Osteoarthritis Depression Gastric reflux Hypertension Hyperlipidemia Migraine Neuropathy (HCC) Poor circulation Hypothyroid Full dentures upper & lower Seasonal allergies Claustrophobia Sleep apnea no CPAP PLAN: Overall, the patient is doing okay. Some of the preoperative symptoms are improved. I increased the patient s activities As tolerated. The patient should increase range of motion activities as tolerated. They should continue regular exercise and strengthening wit h the hope that they can avoid additional surgery. long term acute care registered nurse pain medication should be continued and tapered by their primary care provider or pain management The patient no longer needs follow-up for this issue. They can contact us should new issue s develop. Thank you for allowing me to care for this patient. ELECTRONICALLY SIGNED BY: Aric Wilcox PA-C, 10/20/2016 11:10 documented in this encounter Plan of Treatment Not on filedocumented as of this encounter Visit Diagnoses + + | Diagnosis | + + | S/P lumbar fusion - Primary Arthrodesis status | + + | S/P cervical spinal fusion Arthrodesis status | + + | BILLIE (obstructive sleep apnea) Obstructive sleep apnea (adult) (pediatric) | + + | Cervical spondylosis with myelopathy | + + documented in this encounter
--- OUTSIDE RECORDS SUMMARY | ~2020-05-20 | XMS | Encounter Summary ---
Demographics + + + | Address | [address] | | | [place] [address] | + + + | Home Phone | | + + + | Preferred Language | Unknown | + + + | Marital Status | | + + + | Jewish Affiliation | 1028 | + + + | Race | White | + + + | Ethnic Group | Not or | + + + Author + + + | Author | [facility] | | | and [place] | + + + | Organization | [facility] | | [...] Team Providers + +------+ + | Care Residence Life Coordinator Name | Role | Phone | + [...] | | | | | with | [facility] | | | | | | myelopathy | [place] [address] | | | | | | Degenerative | Phone: | | | | | | disc | [phone] | | | | | | disease, | Fax: | | | | | | cervical | [phone] | | | | | | Procedures [...] | | | | | with | [place] | [facility] [place] | | | | | radicular | [address] | [address] | | | | | symptoms, | [place], | Phone: | | | | | duration | [place] | [phone] | | | | | less than 6 | [address] | Fax: | | | | | weeks | Phone: | [phone] | | | | | Procedures | [phone] | | | | | | [place] OFFICE | Fax: | | | | | | CONSULTATION | [phone] | | | | | | NEW/ESTAB [...] | | [address] | [place] [address] | (Primary Dx); | | | | [place] | [phone] | Degenerative disc | | | | [address] | | disease, cervical; | | | | [phone] | | DEGENERATIVE DISC | | | [...] from t he original. Umer Garcia MD [address] [place] [address], [address] [place], [place] [id number] FAX: NEUROSURGERY HISTORY AND PHYSICAL EXAMINATION CHIEF [...] has no apparent deficits with short or terminal carman memory. CRANIAL NERVES: II: Acuity is intact. [...] Intrinsics 5 5 Ulnar Intrinsics 5 5 Coping Machine Operator Strength 5 5 Hip Flexion 5 5 [...] Date DVT of leg (deep venous thrombosis) ([facility]) Osteoarthritis Depression Gastric reflux Hypertension [...]
--- OUTSIDE RECORDS SUMMARY | ~2020-05-20 | XMS | Encounter Summary ---
Demographics + + + | Address | [address] | | | [place] [address] | + + + | Home Phone | | + + + | Preferred Language | Unknown | + + + | Marital Status | | + + + | Buddhism Affiliation | 1028 | + + + | Race | White | + + + | Ethnic Group | Not or | + + + Author + + + | Author | [facility] | | | and [place] | + + + | Organization | [facility] | | | and [...] Team Providers + +------+ + | Care Dandy Operator Name | Role | Phone | + +------+ + | Paul Hogan MD | PCP | | + +------+ + Encounter Details +--------+ + + + + | Date | Type | Department | Care Team | Description | +--------+ + + + + | 10/20/ | Hospital | [facility] | Umer Garcia MD | S/P lumbar fusion | | 2017 | Encounter | MED CTR XRAY [address] | | | | | [place] | [place] [address] | | | | | [place] [address] | [phone] | | | | | [phone] | | | +--------+ + + + [...] +---------+ + + | atorvaSTATin | Take 20 mg by mouth | | 5 | 09/07/20 | | | (LIPITOR) 20 mg | Daily. | | | 16 | 9 | | tablet | | | | [...] + + + +---------+ + + | carbidopa-levodopa | Take 1 tablet by | | 0 | 10/08/19 | | | (SINEMET) 10-100 mg | mouth Daily. | | | 17 | 9 | | per tablet | | | | | | + + + +---------+ + + | Cyanocobalamin | Take 1 tablet by | | 0 | | | | (VITAMIN B 12 PO) | mouth Daily. | | | | 9 | + + + +---------+ + + | dilTIAZem | Take 180 mg by mouth | | 0 | 09/23/19 | | | (CARDIZEM CD) 180 mg | Daily. | | | 17 | 9 | | 24 hr capsule | | | | | | + + + +---------+ + + | DiphenhydrAMINE | Take 25 mg by mouth | | 0 | | | | HCl (BENADRYL | 4 times daily. | | | | 9 | | ALLERGY PO) | Patient takes at | | | | | | | night. | | | | | + + [...] + + + +---------+ + + | losartan (COZAAR) | Take 100 mg by mouth | | 6 | 09/20/19 | | | 100 MG tablet | Daily. | | | 17 | 9 | + + + +---------+ [...] + +---------+ + + | | Take 7.5-325 tablets | | 0 | 10/04/19 | | | oxyCODONE-acetaminop | by mouth every 4 | | | 17 | 7 | | hen (PERCOCET) | hours. | | | | | | 7.5-325 mg per | | | | | [...] + +--------+ + + + | XR LUMBAR SPINE 2 OR | Routin | 10/20/2016 | S/P lumbar fusion | Results for this | | 3 VW | e | 9:16 AM | | procedure are in the | | | | PST | | results section. | + +--------+ + + + documented in this encounter Results XR Lumbar Spine 2 or 3 Vw (10/20/2016 9:16 AM PST) + + | Specimen | + + | | + + + + + | Narrative | Performed At | + + + | TWO VIEWS LUMBAR SPINE 10/20/2016 9:16 AM CLINICAL HISTORY: Postop | [facility] | | fusion COMPARISON: LUMBAR RADIOGRAPHS APRIL 2016 AND MULTIPLE | [facility] | | PREVIOUS RADIOGRAPHS FINDINGS: Five non rib-bearing, lumbar type | [facility] | | vertebrae are visible. Rightward lumbar curvature persists. | - IMAGING | | Interbody and posterior minda and pedicle screw fusion hardware again | | | extends from L4 through S1 and appears intact and well seated. | | | Vertebral height is maintained, without evident fracture. Disc space | | | narrowing, vertebral spondylosis and mild retrolisthesis persist at | | | L2-3. The sacroiliac joints and imaged sacrum, bony pelvis and | | | lower ribs are unremarkable. There is extensive aortoiliac | | | calcification. Surgical clips again project in the imaged upper | | | abdomen. IMPRESSION - 1. STABLE CHANGES OF OPERATIVE FUSION | | | EXTENDING FROM L4 THROUGH S1. 2. 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 Dictated and Signed by: | | | Shawn Ulrich MD Electronically signed: 10/20/2016 10:13 AM | | + + + + + | Procedure Note | + + | Aleksander Torres Results In - 10/20/2016 10:16 AM PST TWO VIEWS LUMBAR SPINE 10/20/2016 9:16 AM | | | | CLINICAL HISTORY: Postop fusion | | | | COMPARISON: LUMBAR RADIOGRAPHS APRIL 2016 AND MULTIPLE PREVIOUS RADIOGRAPHS | | | | FINDINGS: Five non rib-bearing, lumbar type vertebrae are visible. Rightward | | lumbar curvature persists. Interbody and posterior minda and pedicle screw fusion | | hardware again extends from L4 through S1 and appears intact and well seated. | | Vertebral height is maintained, without evident fracture. Disc space narrowing, | | vertebral spondylosis and mild retrolisthesis persist at L2-3. The sacroiliac | | joints and imaged sacrum, bony pelvis and lower ribs are unremarkable. There is | | extensive aortoiliac calcification. Surgical clips again project in the imaged | | upper abdomen. | | | | IMPRESSION - | | | | 1. STABLE CHANGES OF OPERATIVE FUSION EXTENDING FROM L4 THROUGH S1. | | | | 2. SIMILAR DEGENERATIVE DISC DISEASE AND MILD RETROLISTHESIS AT L2-3. | | | | Dictated and Signed by: Shawn Ulrich MD | | Electronically signed: 10/20/2016 10:13 AM | + + + + + + + | Performing | Address | City/State/Zipcode | Phone Number | | Organization | | | | + + + + + | [facility] | [address] | [place] | [phone] | | [facility] | | [id number] | | | - IMAGING | | | | + + + + + documented in this encounter Visit Diagnoses + + | Diagnosis | + + | S/P lumbar fusion Arthrodesis status | + + documented in this encounter"
--- OUTSIDE RECORDS SUMMARY | ~2020-05-20 | XMS | Encounter Summary ---
Demographics + + + | Address | [address] | | | [place] [address] | + + + | Home Phone | | + + + | Preferred Language | Unknown | + + + | Marital Status | | + + + | Jew Affiliation | 1028 | + + + [...] Team Providers + +------+ + | Care Stock Ranch Supervisor Name | Role | Phone | + [...] | | | | | | | [place] | | | | | | | [...] + + + + | 12/13/ | Anesthesia | [facility] | Lynette Roldan | | | 2016 | Event | MED CTR OR INTRA OP | MD Javon [address] | | | | | [address] | [address] [place] | | | | | [place], [place] | [place] [address] | | | | | [address] | | | | | | | | | | | | | Master Gómez MD | | | | | | [address] | | | | | | [place], [place] | | | | | | [address] | | | | | | | | +--------+ + + + + Anesthesia Record + + + + + | Procedure Name | Responsible | Anesthesia Start | Anesthesia Stop Time | | | Anesthesiologist | Time | | + + + + + | L4-5 Lateral | Lynette Roldan, | 12/14/15 1538 | 12/14/15 1842 | | Anterior Interbody | MD | | | | Fusion w/ L5-S1 | | | | | Transforaminal | | | | | Lumbar Interbody | | | | | Fusion (Left Spine | | | | | Lumbar) | | | | + + + + + +----+---+ + + | Da | T | Event | Comment | | te | i | | | | | m | | | | | e | | | +----+---+ + + | 04 | 1 | | | | /0 | 5 | | | | 4/ | 1 | | | | 20 | 2 | | | | 16 | | | | +----+---+ + + | | 1 | An Checkout | Pre-use anesthesia machine/equipment checkout. | | | 5 | | | | | 3 | | | | | 3 | | | +----+---+ + + | | 1 | An Start | Reassessment prior to anesthesia induction/procedure. | | | 5 | | | | | 3 | | | | | 8 | | | +----+---+ + + | | 1 | Beta | The patient is not on a beta-ilya at home. | | | 5 | Ilya | | | | 3 | Declined | | | | 8 | | | +----+---+ + + | | 1 | Antibiotic | | | | 5 | Given | | | | 3 | | | | | 8 | | | +----+---+ + + | | 1 | Preoxygenat | | | | 5 | ed | | | | 4 | | | | | 2 | | | +----+---+ + + | | 1 | An | | | | 5 | Induction | | | | 4 | | | | | 6 | | | +----+---+ + + | | 1 | An | | | | 5 | Intubation | | | | 4 | | | | | 8 | | | +----+---+ + + | | 1 | Shallowater | | | | 5 | 43-degrees | | | | 5 | | | | | 8 | | | +----+---+ + + | | 1 | First | | | | 6 | Inc/Proc St | | | | 0 | | | | | 3 | | | +----+---+ + + | | 1 | Quick Note | Turned supine then prone | | | 6 | | | | | 3 | | | | | 2 | | | +----+---+ + + | | 1 | an master now | Posterior incision | | | 6 | | | | | 4 | | | | | 3 | | | +----+---+ + + | | 1 | Shallowater off | | | | 8 | | | | | 1 | | | | | 5 | | | +----+---+ + + | | 1 | Breathing | | | | 8 | Spontaneous | | | | 1 | ly | | | | 5 | | | +----+---+ + + | | 1 | Oropharynx | | | | 8 | Suctioned | | | | 1 | | | | | 8 | | | +----+---+ + + | | 1 | Moving | | | | 8 | Purposefull | | | | 1 | y | | | | 9 | | | +----+---+ + + | | 1 | Extubated | | | | 8 | Awake | | | | 1 | | | | | 9 | | | +----+---+ + + | | 1 | an stop | | | | 8 | data | | | | 2 | | | | | 1 | | | +----+---+ + + | | 1 | Quick Note | Despite good RR and VT in OR and opening eyes to command prior to | | | 8 | | extubation, apneic in PACU, ambu bag then LMA (apparently same | | | 3 | | thing happened after ACDF). Narcan given, pt awake with good RR, | | | 7 | | alert. LMA out. BILLIE orders placed. | +----+---+ + + | | 1 | An Stop | Patient handed off to recovery nurse. | | | 4 | | | | | 2 | | | +----+---+ + + +------+ | Meds | +------+ + + + | Name | Total | + + + | lidocaine 2% | 100 mg | + + + | lidocaine 2% | 257.5 mg | + + + | propofol | 200 mg | + + + | dexamethasone | 10 mg | + + + | fentaNYL | 100 mcg | + + + | HYDROmorphone | 2 mg | + + + | succinylcholine | 100 mg | + + + | ondansetron | 4 mg | + + + | ketamine | 50 mg | + + + | ketamine | 31.97 mg | + + + | dexmedetomidine (Bolus) | 50 mcg | + + + | dexmedetomidine (Infusion) | 31.72 mcg | + + + | magnesium sulfate | 2 g | + + + | ePHEDrine | 45 mg | + + + | lactated ringers (LR) infusion | 1,000 mL | + + + + + | Name | + + | N2O Flow Rate (L/Min) | + + | O2 Flow Rate (L/Min) | + + | Insp O2 | + + | Exp SEV | + + | Exp MIRZA | + + | Air Flow Rate (L/Min) | + + + + | No blood administrations on file. | + + +--------+ + + + | Type | Details | Placement | Removal | +--------+ + + + | Drain/ | 12/14/15; (present on arrival to | 12/14/15 0000 by | 12/16/15 1030 by | | Device | PACU); #1; Left; lower; back; | Solomon Anderson RN | Darren Anderson RN | | Site | collapsible closed device; tip | | | | | intact; short term use; 12/16/15; | | | | | 1030 | | | +--------+ + + + | Periph | 12/14/15 (DEEPA Padilla started IV); | 12/14/15 1430 by | 04/06/16 1647 by | | eral | 1430; boud-swf-jxmvyi catheter | Keren Donohue RN | Darren Anderson RN | | IV | system; 18 gauge, 1 1/4 in | | | | | length; Hematology, Chemistry; 3; | | | | | distraction, intradermal | | | | | injection, tolerated well; no | | | | | longer indicated; healing within | | | | | expectations; 12/16/15; 1646 | | | +--------+ + + + | Airway | Placement Date: 12/14/15; | 12/14/15 154 by Lynette | 12/14/151818 by Tor | | | Placement Time: 154 (created via | Javon Roldan MD | Javon Roldan MD | | | procedure documentation); Mask | | | | | Ventilation: EZ; Airway Grade: 1; | | | | | Successful Technique: Mac; | | | | | Laryngoscope Blade Size: 4; | | | | | Attempts: 1; Airway Type: | | | | | endotracheal; Size: 6.5; Airway | | | | | Tube Secured At: 21; Other | | | | | Equipment: stylette; Placement | | | | | Check: exhaled CO2 detection | | | | | device; Removal Date: 12/14/15; | | | | | Removal Time: 1818 | | | +--------+ + + + | Read | 12/14/15; 1655; Left; flank; | 12/14/151654 by | 12/16/15 164 by | | only - | healing within expectations; | Janak Adamson RN | Darren Anderson RN | | | 12/16/15; 1646 | | | | Incisi | | | | | on | | | | +--------+ + + + | Read | 12/14/15; 1654; Bilateral; back; | 12/14/151654 by | 12/04/18 1342 by | | only - | 12/04/18 (Completed/Removed by | Janak Adamson RN | User Epic | | | Utility); 1342 (Completed/Removed | | | | Incisi | by Utility) | | | | on | | [...] encounter OR Notes Anesthesia Postprocedure Evaluation - Lynette Roldan MD - 12/14/2015 6:42 PM PDTForm atting of this note might be different from the original. ANESTHESIA POSTANESTHESIA EVALUATION Mellisa Bryant [place]jurset 80 y.o. female 1935 [id number] Procedure(s) L4-5 Lateral Anterior Interbody Fusion w/ L5-S1 Transforaminal Lumbar Interbo dy Fusion (Left Spine Lumbar) Filed Vitals: 12/14/15 1332 12/14/15 1824 12/14/15 1836 BP: 167/82 125/82 Pulse: 75 76 100 Temp: 36.5 C (97.7 F) 36.7 C (98.1 F) Resp: 16 21 SpO2: 97% 63% 95% Cooperates? Yes Mental Status Performs simple tasks. Respiratory Satisfactory - Airway patent (self maintained). Cardiovascular Satisfactory Blood pressure and heart rate acceptable Temperature Satisfactory Pain Satisfactory N/V Control Satisfactory Hydration Satisfactory No signs of dehydration Complications None apparent Apneic on arrival to PACU, ambu bagged, lma, narcan. Now alert with good resp rate. RN inf ormed to look for renarcanization and to pass this on to floor RN. BILLIE orders placed. Electronically signed by Lynette Roldan MD 12[facility]14/2015 18:[facility] Notes - Lynette Roldan MD - 12/14/2015 4:18 PM PDTAssociated Order(s): ANE AIRWAY NOTEAnesthesia Airway Placement 12/14/2015 15:48 Preprocedure check: patient identified, oxygen, airway assessed, patient reassessment prior to induction, airway equipment checked and suction Rapid Sequence Induction: no Mask ventilation: easy Successful technique: Mac Laryngoscope blade size: 4 Airway grade: 1 (Full view of glottis) Other equipment: stylette Attempts: 1 Airway type: endotracheal Size: 6.5 Cuffed: cuffed Route, reference point: right side of mouth Tube depth: 21 cm Tube secured with: adhesive tape Trauma: none Tube placement verification: carbon dioxide detection Performing provider: LYNETTE ROLDAN Electronically Signed by: MD Dominga Ley date/time: 12/13 16:18 nesthesia Prepro cedure Evaluation - Lynette Roldan MD - 12/14/2015 3:08 PM PDT ANESTHESIA PREANESTHESIA EVALUATION Mellisa Carrizales 80 y.o. female 1935 [id number] Procedure(s): L4-5 Lateral Anterior Interbody Fusion w/ L5-S1 Transforaminal Lumbar Interbo dy Fusion (Left ) Medical history, anesthesia, medications, allergy, NPO status verified histories reviewed. ECG reviewed. Labs reviewed. Review of Systems / Med History Anesthesia History (-) PONV, difficult intubation, malignant hyperthermia Cardiovascular Incomplete RBBB. (+) hypertension(-) CAD, angina (+) PVD: Pulmonary No acute pulmonary concerns. (-) asthma, COPD(+) sleep apnea (has not tolerated CPAP): known Neurology (+) headaches, neuropathy (LLE>RLE), back pain, weakness, chronic pain Psychology Negative except where noted below. (+) anxiety, depression Renal (-) end-stage renal disease Endocrine (+) hypothyroidism Other Hx dvt. Physical Exam Airway MP II, Mouth opening >2 FB. Neck: limited ROM, Dental ; Grossly normal except where not ed below. (+) dentures-lower and dentures-upper. CV Rhythm regular. Rate Normal. (-) murmur. Pulm Clear to auscultation bilaterally. Neuro Grossly normal. Anesthesia Plan ASA 3 Type: General. Induction: Intravenous. Potential problems: None anticipated. Monitors: Standard ASA monitors. Consent statement:Anesthetic plan, alternatives, risks and benefits discussed with patient. Risks discussed included (but were not limited to): nausea, sore throat, dental injury, jennie g reaction, perioperative CV events, heart problems, respiratory events, . Consenting person understands and agrees to proceed. PARQ. . Electronically Signed by: MD Dominga Ley date/time: 12/14/2015 15:08 documented in thi s encounter Plan of Treatment Not on filedocumented as of this encounter Procedures + +--------+ + + + | Procedure Name | Priori | Date/Time | Associated Diagnosis | Comments | | | ty | | | | + +--------+ + + + | ANE AIRWAY NOTE | Routin | 12/14/2015 | | Results for this | | | e | 4:19 PM | | procedure are in the | | | | PDT | | results section. | + +--------+ + + + documented in this encounter Results Anesthesia Airway Note (12/14/2015 4:19 PM PDT) + + + | Narrative | Performed At | + + + | Lynette Roldan MD 12/14/2015 16:19 Anesthesia Airway | | | Placement 12/14/2015 15:48 Preprocedure check: patient identified, | | | oxygen, airway assessed, patient reassessment prior to induction, | | | airway equipment checked and suction Rapid Sequence Induction: no | | | Mask ventilation: easy Successful technique: Mac Laryngoscope | | | blade size: 4 Airway grade: 1 (Full view of glottis) Other | | | equipment: stylette Attempts: 1 Airway type: endotracheal Size: 6.5 | | | Cuffed: cuffed Route, reference point: right side of mouth Tube | | | depth: 21 cm Tube secured with: adhesive tape Trauma: none Tube | | | placement verification: carbon dioxide detection Performing provider: | | | LYNETTE ROLDAN Electronically Signed by: Lynette Roldan | | | ESig date/time: 12/14/2015 | | | 16:18 | | + + + documented in this encounter Visit Diagnoses Not on filedocumented in this encounter Administered Medications + +--------+ +-------+------+------+ | Medication Order | MAR | Action | Dose | Rate | Site | | | Action | Date | | | | + +--------+ +-------+------+------+ | dexamethasone (DECADRON) 10 | Given | 12/14/19 | 10 mg | | | | mg/mL injection Intravenous, | | 16 3:56 | | | | | PRN, Starting Mon12/14/15 at 1556, | | PM PDT | | | | | Anesthesia Intra-op | | | | | | + +--------+ +-------+------+------+ +---+---+ | | | +---+---+ + +---------+ + +-------+---+ | dexmedetomidine (PRECEDEX) 400 | New Bag | 12/14/19 | 0.25 | 4.6 | | | mcg in 100 mL NS infusion | | 16 4:15 | mcg/kg/h | mL/hr | | | Intravenous, CONTINUOUS PRN, | | PM PDT | r | | | | Starting Mon12/14/15 at 1615, | | | | | | | Anesthesia Intra-op | | | | | | + +---------+ + +-------+---+ +---+---+ | | | +---+---+ + +-------+ +--------+---+---+ | dexmedetomidine (PRECEDEX) in | Given | 12/14/19 | 50 mcg | | | | sodium chloride bolus infusion | | 16 3:58 | | | | | Intravenous, PRN, Starting Mon | | PM PDT | | | | | 12/14/15 at 1558, Anesthesia | | | | | | | Intra-op | | | | | | + +-------+ +--------+---+---+ +---+---+ | | | +---+---+ + +-------+ +-------+---+---+ | ePHEDrine 50 mg/mL injection | Given | 12/14/19 | 10 mg | | | | PRN, Starting 12/14/15 at 1623, | | 16 4:56 | | | | | Anesthesia Intra-op | | PM PDT | | | | + +-------+ +-------+---+---+ +-------+ +-------+---+---+ | Given | 12/14/19 | 10 mg | | | | | 16 4:52 | | | | | | PM PDT | | | | +-------+ +-------+---+---+ | Given | 12/14/19 | 10 mg | | | | | 16 4:26 | | | | | | PM PDT | | | | +-------+ +-------+---+---+ +---+---+ | | | +---+---+ + +-------+ +--------+---+---+ | fentaNYL injection | Given | 12/14/19 | 50 mcg | | | | Intravenous, PRN, Pain, Starting | | 16 3:53 | | | | | 12/14/15 at 1553, Anesthesia | | PM PDT | | | | | Intra-op | | | | | | + +-------+ +--------+---+---+ +-------+ +--------+---+---+ | Given | 12/14/19 | 50 mcg | | | | | 16 3:46 | | | | | | PM PDT | | | | +-------+ +--------+---+---+ +---+---+ | | | +---+---+ + +-------+ +------+---+---+ | HYDROmorphone (DILAUDID) 2 | Given | 12/14/19 | 2 mg | | | | mg/mL injection Intravenous, | | 16 4:08 | | | | | PRN, Pain, Starting Mon12/14/15 at | | PM PDT | | | | | 1608, Anesthesia Intra-op | | | | | | + +-------+ +------+---+---+ +---+---+ | | | +---+---+ + +---------+ + +-------+---+ | ketamine 50 mg/mL injection | New Bag | 12/14/19 | 4.2 | 0.4 | | | CONTINUOUS PRN, Starting Mon | | 16 4:15 | mcg/kg/m | mL/hr | | | 12/14/15 at 1615, Anesthesia | | PM PDT | in | | | | Intra-op | | | | | | + +---------+ + +-------+---+ +---+---+ | | | +---+---+ + +-------+ +-------+---+---+ | ketamine 50 mg/mL injection | Given | 12/14/19 | 50 mg | | | | PRN, Starting Mon12/14/15 at 1558, | | 16 3:58 | | | | | Anesthesia Intra-op | | PM PDT | | | | + +-------+ +-------+---+---+ +---+---+ | | | +---+---+ + + + +---+-------+---+ | lactated ringers (LR) infusion | Rate/Dos | 12/14/19 | | 100 | | | at 100 mL/hr, Intravenous, | e Verify | 16 11:00 | | mL/hr | | | CONTINUOUS, Starting Mon12/14/15 | | PM PDT | | | | | at 1400 | | | | | | + + + +---+-------+---+ +---------+ +---+-------+---+ | New Bag | 04/04/20 | | | | | | 16 6:06 | | | | | | PM PDT | | | | +---------+ +---+-------+---+ | New Bag | 12/14/19 | | 100 | | | | 16 2:30 | | mL/hr | | | | PM PDT | | | | +---------+ +---+-------+---+ +---+---+ | | | +---+---+ + +---------+ +-------+-------+---+ | lidocaine (PF) 2% injection | New Bag | 12/14/19 | 150 | 7.5 | | | Intravenous, CONTINUOUS PRN, | | 16 4:15 | mg/hr | mL/hr | | | Starting 12/14/15 at 1615, | | PM PDT | | | | | Anesthesia Intra-op | | | | | | + +---------+ +-------+-------+---+ +---+---+ | | | +---+---+ + +-------+ +--------+---+---+ | lidocaine (PF) 2% injection | Given | 12/14/19 | 100 mg | | | | Intravenous, PRN, Starting Mon | | 16 3:46 | | | | | 12/14/15 at 1546, Anesthesia | | PM PDT | | | | | Intra-op | | | | | | + +-------+ +--------+---+---+ +---+---+ | | | +---+---+ + +-------+ +-----+---+---+ | magnesium sulfate 500 mg/mL | Given | 12/14/19 | 2 g | | | | injection Intravenous, PRN, | | 16 4:10 | | | | | Starting 12/14/15 at 1610, | | PM PDT | | | | | Anesthesia Intra-op | | | | | | + +-------+ +-----+---+---+ +---+---+ | | | +---+---+ + +-------+ +------+---+---+ | ondansetron (ZOFRAN) injection | Given | 12/14/19 | 4 mg | | | | PRN, Nausea, Vomiting, Starting | | 16 3:56 | | | | | 12/14/15 at 1556, Anesthesia | | PM PDT | | | | | Intra-op | | | | | | + +-------+ +------+---+---+ +---+---+ | | | +---+---+ + +-------+ +-------+---+---+ | propofol (DIPRIVAN) injection | Given | 12/14/19 | 50 mg | | | | Intravenous, PRN, Starting Mon | | 16 4:05 | | | | | 12/14/15 at 1546, Anesthesia | | PM PDT | | | | | Intra-op | | | | | | + +-------+ +-------+---+---+ +-------+ +--------+---+---+ | Given | 12/14/19 | 150 mg | | | | | 16 3:46 | | | | | | PM PDT | | | | +-------+ +--------+---+---+ +---+---+ | | | +---+---+ + +-------+ +--------+---+---+ | succinylcholine (ANECTINE) | Given | 12/14/19 | 100 mg | | | | injection Intravenous, PRN, | | 16 3:46 | | | | | Starting 12/14/15 at 1546, | | PM PDT | | | | | Anesthesia Intra-op | | | | | | + +-------+ +--------+---+---+ +---+---+ | | | +---+---+ documented in this encounter"
--- OUTSIDE RECORDS SUMMARY | ~2020-05-20 | XMS | Encounter Summary ---
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 Name | Role | Phone | + [...] | | | | | | | [place] | | | | | | | [...] + + | 12/13/ | Hospital | [facility] | Umer Garcia MD | Gait abnormality | | 2016 - | Encounter | [facility] | [address] | (Primary Dx) | | | | [address] | [place] [address] | | | 12/15/ | | [place] [address] | [phone] | | | 2015 | | [phone] | | | +--------+ + + + [...] + + + | Blood Pressure | 104/54 | 12/16/2015 4:00 PM | | | | | PDT | | + + + + + | Pulse | 90 | 12/16/2015 4:00 PM | | | | | PDT | | + + + + + | Temperature | 37.9 C (100.2 F) | 12/16/2015 4:00 PM | | | | | PDT | | + + + + + | Respiratory Rate | 20 | 12/16/2015 4:00 PM | | | | | PDT | | + + + + + | Oxygen Saturation | 93% | 12/16/2015 4:00 PM | | | | | PDT | | + + + + + | Inhaled Oxygen | - | - | | | Concentration | | | | + + + + + | Weight | 73.9 kg (163 lb) | 12/14/2015 1:32 PM | | | | | PDT | | + + + + + | Height | 165.1 cm (5' 5") | 12/14/2015 1:32 PM | | | | | PDT | | + + + + + | Body Mass Index | 27.12 | 12/14/2015 1:32 PM | | | | | PDT [...] + + documented as of this encounter Discharge Summaries Aric Wilcox PA - 12/16/2015 7:34 AM PDTFormatting of this note might be differen t from the original. [facility] NEUROSURGERY DISCHARGE SUMMARY Patient Name: Mellisa Carrizales Patient : 1935 PCP: Paul Hogan Date of Admission: 12/14/2015 Date of Discharge: 12/16/2015 Primary Discharge Dx: Lumbar degenerative disc disease Lumbar foraminal stenosis Lumbar facet arthropathy Lumbar spinal stenosis Secondary Discharge Dx(s): Patient Active Problem List Diagnosis SPINAL STENOSIS, LUMBAR BURSITIS, HIP DEGENERATIVE DISC DISEASE, LUMBAR SPINE BACK PAIN, LUMBAR OSTEOARTHRITIS, LUMBOSACRAL SPINE Facet arthropathy, lumbar Cervical spondylosis with radiculopathy Cervical spondylosis with myelopathy Degenerative disc disease, cervical Foraminal stenosis of cervical region S/P cervical spinal fusion Lumbar radiculopathy Foraminal stenosis of lumbar region BILLIE (obstructive sleep apnea) Chronic pain syndrome Procedures 1. Minimally invasive lumbar fusion via anterior and posterior approaches 2. Combined posterolateral and posterior interbody arthrodesis L5-S1 3. Anterior lumbar interbody arthrodesis L4-5 4. Posterolateral lumbar arthrodesis L4 and L5 5. Posterior spinal instrumentation L4-S1 with use of Precept 6. Placement of PEEK interbody spacer L4-5 and L5-S1 7. L5 laminectomy, L5-S1 facetectomy, L5 and S1 foraminotomy for decompression of L5 and S1 nerves 8. Microsurgical technique with use of operating microscope Hospital Course: Post op she has done well. Working well with PT and OT. She has good support at home. Mary suggs is wanting DC today if possible. Passing flatus and urinating well. Pain is controlled. No significant medical issues are noted Condition on Discharge: Stable Discharge Medications: Discharge Medications New Medications Details lactulose 10 g/15 mL solution Take 30 mLs by mouth Daily as needed. oxyCODONE 5 mg tablet Take 1-4 tablets by mouth every 4 hours as needed for Pain. aka: ROXICODONE tiZANidine 4 mg tablet Take 0.5 tablets by mouth every 6 hours as needed. aka: ZANAFLEX Unchanged Medications Details aspirin 81 mg EC tablet Take 81 mg by mouth Daily. atorvaSTATin 10 mg tablet Take 10 mg by mouth nightly. aka: LIPITOR CITRACAL/VITAMIN D 250-200 MG-UNIT Tabs Generic drug: Calcium Citrate-Vitamin D Take by mouth 2 times daily. furosemide 40 mg tablet Take 40 mg by mouth Daily. aka: LASIX levothyroxine 25 mcg tablet Take 25 mcg by mouth every morning (before breakfast). aka: SYNTHROID, LEVOTHROID melatonin 5 mg tablet Take 10 mg by mouth nightly. NEURONTIN 300 mg capsule Generic drug: gabapentin Take 300 mg by mouth 2 times daily. omeprazole 20 mg capsule Take 20 mg by mouth Daily. aka: priLOSEC PARoxetine 30 MG tablet Take 30 mg by mouth Daily. aka: PAXIL potassium chloride 10 mEq CR capsule Take 10 mEq by mouth Daily. aka: MICRO-K TYLENOL ARTHRITIS PAIN PO Take 1,000 mg by mouth 3 times daily. VALERIAN PO Take 3 capsules by mouth nightly. VITAMIN B COMPLEX PO Take 1 tablet by mouth Daily. Discontinued Medications cyclobenzaprine 10 mg tablet aka: FLEXERIL HYDROcodone-acetaminophen 10-325 mg per tablet aka: NORCO ; Current Discharge Medication List START taking these medications Medication Dose Last Dose Taken; lactulose 10 g/15 mL solution 30 mLs Take 30 mLs by mouth Daily as needed. Quantity: 240 mL Refills: PRN Start date: 12/16/2015 oxyCODONE (ROXICODONE) 5 mg tablet 5-20 mg Take 1-4 tablets by mouth every 4 hours as needed for Pain. Quantity: 120 tablet Refills: 0 Start date: 12/16/2015 tiZANidine (ZANAFLEX) 4 mg tablet 2 mg Take 0.5 tablets by mouth every 6 hours as needed. Quantity: 90 tablet Refills: 1 Start date: 12/16/2015 CONTINUE these medications which have NOT CHANGED Medication Dose Last Dose Taken; Acetaminophen (TYLENOL ARTHRITIS PAIN PO) 1,000 mg Take 1,000 mg by mouth 3 times daily. aspirin 81 mg EC tablet 81 mg Take 81 mg by mouth Daily. atorvaSTATin (LIPITOR) 10 mg tablet 10 mg Take 10 mg by mouth nightly. B Complex Vitamins (VITAMIN B COMPLEX PO) 1 tablet Take 1 tablet by mouth Daily. Calcium Citrate-Vitamin D (CITRACAL/VITAMIN D) 250-200 MG-UNIT TABS Take by mouth 2 times daily. furosemide (LASIX) 40 mg tablet 40 mg Take 40 mg by mouth Daily. gabapentin (NEURONTIN) 300 mg capsule 300 mg Take 300 mg by mouth 2 times daily. levothyroxine (SYNTHROID, LEVOTHROID) 25 mcg tablet 25 mcg Take 25 mcg by mouth every morning (before breakfast). melatonin 5 mg tablet 10 mg Take 10 mg by mouth nightly. omeprazole (PRILOSEC) 20 mg capsule 20 mg Take 20 mg by mouth Daily. paroxetine (PAXIL) 30 MG tablet 30 mg Take 30 mg by mouth Daily. potassium chloride (MICRO-K) 10 mEq CR capsule 10 mEq Take 10 mEq by mouth Daily. VALERIAN PO 3 capsules Take 3 capsules by mouth nightly. Follow-Up: 4 weeks B bracing documented in th is encounter Medications at Time of Discharge + [...] of this encounter Progress Notes Aric Wilcox PA - 12/15/2015 7:21 AM PDTFormatting of this note might be differen t from the original. [facility] PROGRESS NOTE Pt. Name/Age/: Mellisa Bryant Sjurset 80 y.o. 1935 Med. Record Number: [id number] Date of admission: 12/14/2015 Subjective: The patient chart and medications were reviewed in detail and the patient was s een and examined. The patient is doing OK post op day 1. Pain is reasonably controlled. Eating ok. Objective: Temp: 36.6 C (97.9 F) BP: 151/71 mmHg Pulse: 98 Resp: 18 SpO2: 96 % on Min/Max Temp past 24 hours:Temp Av.4 C (97.6 F) Min: 35.9 C (96.6 F) Max: 3 6.7 C (98.1 F) Intake/Output Summary (Last 24 hours) at 12/15/15 0721 Last data filed at 12/15/15 0629 Gross per 24 hour Intake 2556 ml Output 1034 ml Net 1522 ml Wt. Admission: Weight: 73.936 kg (163 lb) Wt. Current: Weight: 73.936 kg (163 lb) Exam: General: A&O Cardiovascular: RRR Respiratory: clear Abdomen: benign Extremities: No edema Neurological: stable Diagnostic studies: Available data and images were reviewed personally. See reports. Signi ficant results and findings are addressed here or in the Assessment and Plan. Assessment and Plan: Sp lumbar fusion Patient Active Problem List Diagnosis SPINAL STENOSIS, LUMBAR BURSITIS, HIP DEGENERATIVE DISC DISEASE, LUMBAR SPINE BACK PAIN, LUMBAR OSTEOARTHRITIS, LUMBOSACRAL SPINE Facet arthropathy, lumbar Cervical spondylosis with radiculopathy Cervical spondylosis with myelopathy Degenerative disc disease, cervical Foraminal stenosis of cervical region S/P cervical spinal fusion Lumbar radiculopathy Foraminal stenosis of lumbar region BILLIE (obstructive sleep apnea) Chronic pain syndrome Plan: Mobilize with PT and OT. IS use. Possiibly home 1-2 days depending on her progress Electronically signed by: Aric Wilcox, 12/15/2015 7:21 [facility] documented in th is encounter H&P Notes Umer Garcia MD - 12/14/2015 3:17 PM [facility] INTERIM HISTORY AND PHYSICAL UPDATE Pt. Name/Age/: Mellisa Bryant Sjurset 80 y.o. 1935 Date of admission: 12/14/2015 The current H&P was reviewed. The patient was reexamined. Re-evaluation of the patient con firms the necessity for the scheduled procedure. No change has occurred in the patient s c ondition since the H&P was completed less than 30 days ago. I expect this patient will be hospitalized for post-operative care of post-operative care o f an IP-only procedure and expect the post-hospital plan to be determined once additional in formation is obtained. VERIFICATION OF CONSENT (PARQ) The patient was counseled regarding the procedure, its indications, risks, potential compli cations and alternatives. Any questions were answered. Consent was obtained. Electronically signed by: Umer Garcia MD 12/14/2015 15:17 [facility] aUmer tenorio MD - 12/02 9:50 AM PDT Umer Garcia MD [address], [address] [place] [address] FAX: NEUROSURGERY FOLLOW-UP CHIEF COMPLAINT: Chief Complaint Patient presents with Back Pain Pain in legs, mostly in left leg HISTORY OF PRESENT ILLNESS: The patient is a 80 y.o. female that had a C5-C7 fusion by Dr Julio Garcia for neck and arm symptoms around 6 months ago. It was known at this time that she als o had low back pain and leg symptoms. However, it was decided upon to pursue her neck patho logy first. She returns and overall is doing well with respect to her neck. She notices an occasional popping sound in her upper neck and that is her only complaint. However, patient still having fairly significant back pain that she rates around a 7-8 out of 10. Patient is also having some associated leg symptoms as well. Patient states that sh e cannot walk more than about 10 or 15 minutes. After this she is limited by pain and weakn ess in her thighs. She has numbness and pain that radiates down the lateral aspect of both legs in an L5 distribution. PAST MEDICAL HISTORY: Past Medical History Diagnosis Date DVT of leg (deep venous thrombosis) (HCC) Osteoarthritis Depression Gastric reflux Hypertension Hyperlipidemia Migraine Neuropathy Poor circulation Hypothyroid Full dentures upper & lower PAST SURGICAL HISTORY: Past Surgical History Procedure Laterality Date Hysterectomy Bladder repair x 3 Shoulder arthroscopy Bilateral Cervical spine surgery N/A 04/30/2015 Procedure: C5-6, C6-7 Anterior Cervical Discectomy Fusion; Surgeon: Umer Garcia MD; Lo cation: [facility] CURRENT MEDICATIONS: Current Outpatient Prescriptions Medication Sig Dispense Refill Acetaminophen (TYLENOL ARTHRITIS PAIN PO) Take 1,950 mg by mouth 3 times daily. aspirin 81 mg EC tablet Take 81 mg by mouth Daily. atorvaSTATin (LIPITOR) 10 mg tablet Take 10 mg by mouth nightly. B Complex Vitamins (VITAMIN B COMPLEX PO) Take 1 tablet by mouth Daily. Calcium Citrate-Vitamin D (CITRACAL/VITAMIN D) 250-200 MG-UNIT TABS Take by mouth 2 ti mes daily. furosemide (LASIX) 40 mg tablet Take 40 mg by mouth Daily. gabapentin (NEURONTIN) 300 mg capsule Take 300 mg by mouth 2 times daily. HYDROcodone-acetaminophen (NORCO) 10-325 mg per tablet Take 1-2 tablets by mouth every 4 hours as needed for Pain. 65 tablet 0 levothyroxine (SYNTHROID, LEVOTHROID) 25 mcg tablet Take 25 mcg by mouth every morning (before breakfast). omeprazole (PRILOSEC) 20 mg capsule Take 20 [...] she does not use i llicit drugs. FAMILY HISTORY: Family History Problem Relation Age of Onset Arthritis Cancer Father Hypertension Kidney disease Brother Cancer Mother Thyroid Cancer Cancer Brother Heart attack Paternal Grandfather INTERIM PHYSICAL EXAMINATION: Blood pressure 137/89, pulse 81, resp. rate 18, height 1.651 m (5' 5"), weight 75.297 kg (1 66 lb), not currently . Body mass index is 27.62 kg/(m^2). GENERAL: Mellisa Carrizales is in no acute distress with unlabored respirations. HEENT: HEAD/FACE: Normocephalic and atraumatic. There are no areas of recent trauma. SPINE: The patient s incision has healed further and is again without drainage, erythema, or discharge EXTREMITIES: Mild lower extremity edema. NEUROLOGICAL EXAMINATION: MENTAL STATUS: The patient is awake, alert, and oriented. She follows simple and complex commands MOTOR EXAM: Motor strength is 5/5 in the upper extremities. She has 4/5 Left DF/EHL and ri ght 4+/5 DF/HEL. SENSORY EXAM: The sensory examination improved from the preoperative exam. Patient does shore ve decreased sensation on the lateral aspect of her right ankle but this is from a previous surgery that has been performed. REFLEXES: Reflexes are unchanged from her preoperative history and physical. RADIOGRAPHIC REVIEW: The patient s postoperative x-rays show stable instrumentation and alignment and were rev iewed with the patient today. There have been no interval changes since the immediate posto perative films. There has been increased arthrodesis since the patient s last x-ray which was also reviewed for comparison. In reviewing the MRI of her lumbar spine from December 2014 there are multiple levels of lumba r spondylosis. This creates the most significant spinal stenosis at L4-L5 and L5-S1. There is also noted spondylolisthesis at L2-L3. There is associated facet arthropathy at multipl e levels which contributes to her spinal stenosis as does thickened ligamentum flavum. Ther e is an old stable T12 compression fracture. ASSESSMENT: Encounter Diagnoses Name Primary? DEGENERATIVE DISC DISEASE, LUMBAR SPINE Yes Facet arthropathy, lumbar Lumbar radiculopathy Foraminal stenosis of lumbar region S/P cervical spinal fusion Past Medical History Diagnosis Date DVT of leg (deep venous thrombosis) ([facility]) Osteoarthritis Depression Gastric reflux Hypertension Hyperlipidemia Migraine Neuropathy Poor circulation Hypothyroid Full dentures upper & lower PLAN: Overall, the patient is doing well with her neck but continues to have back issues. She is very happy with results of her surgery her neck. However, she is quite uncomfortable with respect to her low back. Her back symptoms are much more significant than any leg symptoms that she is having. She does feel very limited in her ability to achieve her activities of daily living and feels that her back is significantly affecting her quality of life. She is hoping that possible surgery may give her similar relief of pain as it did in her neck. Th e patient's preoperative symptoms are improving at this point. I discussed addressing her worst levels at L4-S1. We discussed the risks, alternatives, and benefits [...] provide her with the best possible outcome. I am prescribing a brace before surgery to improve her stability now to support her weak mu scles and to reduce pain by restricting mobility. For multiple (more than 1 level) fusions, I am also prescribing a bone growth stimulator po stoperatively. This is to improve the probability and rate of fusion. She would like to seek authorization for this. ELECTRONICALLY SIGNED BY: Umer Garcia MD, 12/03/2015 9:50 documented in this encounter Nursing Notes Solomon Anderson RN - 12/14/2015 7:34 PM PDTC/o left leg numbness. oSolomon arechiga RN - 12/14/2015 6:[address] Roldan at bedside performing jaw thrustElectronically signed by Solomon Anderson RN at 6:43 PM PDTdocumented in this encounter Miscellaneous Notes Plan of Care - Keily Iyer, OT - 12/16/2015 2:52 PM PDTProblem: Patient Care [place] vizcaino (Adult) Goal: Care Team Goals & Evaluation PROBLEM-RELATED GOALS: 1. Mellisa will void within 6 hours of arriving to the floor post op. 2. Mellisa will tolerate solid food and PO pain med by POD 1. 3. Mellisa s sensation will be intact and muscle strength of 5/5 by POD 2 4. Mellisa will achieve the pain score of 3/10 by POD 2 5. Mellisa will ambulate on day of surgery. 6. Mellisa will have a BM by POD 3. 7. Mellisa will be free of s/s of infections through POD 5. 8. Mellisa will meet 75% of predicted goal of 1900 by 12/17/2015 9. Mellisa will maintain adequate oxygenation via oximetry with SpO2 >92% by 10. Mellisa will be able to don LSO independently by 12/16/15. 11. Pt. Will need no cues with post-op precautions during ADLs. By 12/16/15 STRATEGY TO ACHIEVE GOALS: 1. Offer toileting, encourage ambulation to bathroom. If no void in 6 hours, then bladder s can pt and follow MD order. 2. Start pt on liquids on arrival to the floor, increase diet as tolerate. Once taking juic e or solids, start pt on PO pain meds. 3. Assess sensation and strength Q 4 hrs and prn. If decline noted, notify MD. Teach lumbar /cervical precautions, cue prn, assist as needed. Encourage ambulation in halls and sitting in chair for meals. 4. Assess pain Q 4 hr and prn. Medicate prn, re-assess pain 30-60 minutes after med and re- medicate prn. 5. Dangle pt on admit and encourage ambulation once pt is awake. Encourage ambulation to [facility]. 6. Give stool softener and laxative daily. If no BM by POD 2, use prn bowel meds until a BM is achieved. If discharged before POD 2, complete teaching to prevent constipation. 7. Assess VS and temperature, dressing and lab work as directed. Notify w/ any concerns. 8. Instruct patient in the use of Incentive Spirometry and/or deep breath and cough. Nursin g and Respiratory to work together to have patient use every hour while awake. Respiratory t o monitor progress 4 times daily until 75% goal met then turn over to nursing. 9. Monitor saturations via oximetry every 4 hrs and titrate to order as indicated. -Pt. To be receptive to recommendations and participate with OT as able. RESTRAINT-RELATED GOALS: STRATEGIES TO ACHIEVE RESTRAINT GOALS: Offe Occupational Therapy Daily Treatment Note Patient Information Patient Name: Mellisa Carrizales Date of : 1935 Age: 80 y.o. Precautions/Limitations: falls, spinal, brace on when up, "B" brace Left Upper Extremity Weight-Bearing: (5 lb post op lifting precaution) Right Upper Extremity Weight-Bearing: (5 lb post op lifting precaution) Left Lower Extremity Weight-Bearing: full weight-bearing Right Lower Extremity Weight-Bearing: full weight-bearing Start Time: 1015 Stop time: 1045 Time Calculation: 30 minutes Missed Treatment Time: minutes Total Treatment Time: 30 minutes TimedTreatment Code Minutes: 30 minutes Subjective: "I am ready to leave when my son gets here" Objective: OT was able to assist Pt. to EOB with min. (A). She then had her drain pulled by nurse. S he was agreeable to doing OT and wanted to dress in her clothes in prep for going home. Pt. was set-up help. Able to stand and pull on pants. Had c/o indigestion. Pt. wanted to lie down. (A) to lie down. Education: post-op ed. And precautions. Treatment Provided: ADL training and transfer training. Patient Status/Goals Reflects last filed data of patient status; may be from multiple contributors. ADLs UB Dressing, Level of [place]: set up required Assistive Device: none UB Dressing Assess/Train, Position: sitting LB, Level of [place]: minimum assist (75% patient effort), set up required, supervisio n required Assistive Device: none LB Dressing Assess/Train, Position: sitting, standing LB Dressing Assess/Train, Impairments: pain Toileting, Level of [place]: supervision required, set up required Assistive Device: bedside commode Toileting Assess/Train, Position: sitting Toileting Assess/Train, Impairments: strength decreased Grooming, Level of [place]: set up required Assistive Device: none Grooming Assess/Train, Position: standing Toilet, Level of [place]: set up required Toilet, Assistive Device: 2 wheeled walker (FWW), brace STG Goals OT Additional Goal #1: Pt. and caregiver to need no cues or express concerns regarding post -op precautions prior to discharge. Time to Achieve: by discharge Goal Status: not addressed FIM: Assessment: Pt. Was cooperative and eager to dress in prep for discharge. Pt's LIZBETH drain wa s removed and she was able to dress with set-up help. Pt very bloated and had difficulty ge tting her pants buttoned. Pt. C/o indigestion and wanted to lie down to wait for her ride a nd for lunch. Occupational Therapy Anticipated Discharge Needs are: home with assist Have the anticipated discharge needs changed? no Post discharge occupational therapy recommendation: none Plan for next treatment: no further OT Electronically signed by: Keily Iyer OT, 12/16/2015 14:48 lan of Care - Waqar Rosales RN - 12/16/2015 5:22 AM PDTProblem: Patient Care Overview (Adult) Goal: Care Team Goals & Evaluation PROBLEM-RELATED GOALS: 1. Mellisa will void within 6 hours of arriving to the floor post op. 2. Mellisa will tolerate solid food and PO pain med by POD 1. 3. Mellisa s sensation will be intact and muscle strength of 5/5 by POD 2 4. Mellisa will achieve the pain score of 3/10 by POD 2 5. Mellisa will ambulate on day of surgery. 6. Mellisa will have a BM by POD 3. 7. Mellisa will be free of s/s of infections through POD 5. 8. Mellisa will meet 75% of predicted goal of 1900 by 12/17/2015 9. Mellisa will maintain adequate oxygenation via oximetry with SpO2 >92% by 10. Mellisa will be able to don LSO independently by 12/16/15. 11. Pt. Will need no cues with post-op precautions during ADLs. By 12/16/15 STRATEGY TO ACHIEVE GOALS: 1. Offer toileting, encourage ambulation to bathroom. If no void in 6 hours, then bladder s can pt and follow MD order. 2. Start pt on liquids on arrival to the floor, increase diet as tolerate. Once taking juic e or solids, start pt on PO pain meds. 3. Assess sensation and strength Q 4 hrs and prn. If decline noted, notify MD. Teach lumbar /cervical precautions, cue prn, assist as needed. Encourage ambulation in halls and sitting in chair for meals. 4. Assess pain Q 4 hr and prn. Medicate prn, re-assess pain 30-60 minutes after med and re- medicate prn. 5. Dangle pt on admit and encourage ambulation once pt is awake. Encourage ambulation to e bathroom. 6. Give stool softener and laxative daily. If no BM by POD 2, use prn bowel meds until a BM is achieved. If discharged before POD 2, complete teaching to prevent constipation. 7. Assess VS and temperature, dressing and lab work as directed. Notify MD w/ any concerns. 8. Instruct patient in the use of Incentive Spirometry and/or deep breath and cough. Nursin g and Respiratory to work together to have patient use every hour while awake. Respiratory t o monitor progress 4 times daily until 75% goal met then turn over to nursing. 9. Monitor saturations via oximetry every 4 hrs and titrate to order as indicated. -Pt. To be receptive to recommendations and participate with OT as able. RESTRAINT-RELATED GOALS: STRATEGIES TO ACHIEVE RESTRAINT GOALS: Offe Outcome: Improving Goal Evaluation: tolerating food, pain controlled with PO pain medication every few hours, MS 5/5, ambulating to toilet, no s/s of infection, adequate O2, using B-brace. Patient slept comfortably through part of the night but was awake most of the early AM, katty und 0400 patient seemed slightly confused and tried to sit on the edge of the bed, stated sh e had seen some "black dogs" earlier in the room. Patient oriented x 4 however... lan of Care - B donnabetsy, Agustin Eden, [employer] - 12/16/2015 4:09 AM PDTProblem: Patient Care Overview (Adult) Goal: Care Team Goals & Evaluation PROBLEM-RELATED GOALS: 1. Mellisa will void within 6 hours of arriving to the floor post op. 2. Mellisa will tolerate solid food and PO pain med by POD 1. 3. Mellisa s sensation will be intact and muscle strength of 5/5 by POD 2 4. Mellisa will achieve the pain score of 3/10 by POD 2 5. Mellisa will ambulate on day of surgery. 6. Mellisa will have a BM by POD 3. 7. Mellisa will be free of s/s of infections through POD 5. 8. Mellisa will meet 75% of predicted goal of 1900 by 12/17/2015 9. Mellisa will maintain adequate oxygenation via oximetry with SpO2 >92% by 10. Mellisa will be able to don LSO independently by 12/16/15. 11. Pt. Will need no cues with post-op precautions during ADLs. By 12/16/15 STRATEGY TO ACHIEVE GOALS: 1. Offer toileting, encourage ambulation to bathroom. If no void in 6 hours, then bladder s can pt and follow MD order. 2. Start pt on liquids on arrival to the floor, increase diet as tolerate. Once taking juic e or solids, start pt on PO pain meds. 3. Assess sensation and strength Q 4 hrs and prn. If decline noted, notify MD. Teach lumbar /cervical precautions, cue prn, assist as needed. Encourage ambulation in halls and sitting in chair for meals. 4. Assess pain Q 4 hr and prn. Medicate prn, re-assess pain 30-60 minutes after med and re- medicate prn. 5. Dangle pt on admit and encourage ambulation once pt is awake. Encourage ambulation to [facility] bathroom. 6. Give stool softener and laxative daily. If no BM by POD 2, use prn bowel meds until a BM is achieved. If discharged before POD 2, complete teaching to prevent constipation. 7. Assess VS and temperature, dressing and lab work as directed. Notify MD w/ any concerns. 8. Instruct patient in the use of Incentive Spirometry and/or deep breath and cough. Nursin g and Respiratory to work together to have patient use every hour while awake. Respiratory t o monitor progress 4 times daily until 75% goal met then turn over to nursing. 9. Monitor saturations via oximetry every 4 hrs and titrate to order as indicated. -Pt. To be receptive to recommendations and participate with OT as able. RESTRAINT-RELATED GOALS: STRATEGIES TO ACHIEVE RESTRAINT GOALS: Offe Outcome: Unchanged Goal Evaluation: Pt on 2 l/m nc sats 95 %, lan of Care - Keily Swift OT - 12/15/2015 3:41 PM PDT Problem: Patient Care Overview (Adult) Goal: Care Team Goals & Evaluation PROBLEM-RELATED GOALS: 1. Mellisa will void within 6 hours of arriving to the floor post op. 2. Mellisa will tolerate solid food and PO pain med by POD 1. 3. Mellisa s sensation will be intact and muscle strength of 5/5 by POD 2 4. Mellisa will achieve the pain score of 3/10 by POD 2 5. Mellisa will ambulate on day of surgery. 6. Mellisa will have a BM by POD 3. 7. Mellisa will be free of s/s of infections through POD 5. 8. Mellisa will meet 75% of predicted goal of 1900 by 12/17/2015 9. Mellisa will maintain adequate oxygenation via oximetry with SpO2 >92% by 10. Mellisa will be able to don LSO independently by 12/16/15. 11. Pt. Will need no cues with post-op precautions during ADLs. By 12/16/15 STRATEGY TO ACHIEVE GOALS: 1. Offer toileting, encourage ambulation to bathroom. If no void in 6 hours, then bladder s can pt and follow MD order. 2. Start pt on liquids on arrival to the floor, increase diet as tolerate. Once taking juic e or solids, start pt on PO pain meds. 3. Assess sensation and strength Q 4 hrs and prn. If decline noted, notify MD. Teach lumbar /cervical precautions, cue prn, assist as needed. Encourage ambulation in halls and sitting in chair for meals. 4. Assess pain Q 4 hr and prn. Medicate prn, re-assess pain 30-60 minutes after med and re- medicate prn. 5. Dangle pt on admit and encourage ambulation once pt is awake. Encourage ambulation to th e bathroom. 6. Give stool softener and laxative daily. If no BM by POD 2, use prn bowel meds until a BM is achieved. If discharged before POD 2, complete teaching to prevent constipation. 7. Assess VS and temperature, dressing and lab work as directed. Notify MD w/ any concerns. 8. Instruct patient in the use of Incentive Spirometry and/or deep breath and cough. Nursin g and Respiratory to work together to have patient use every hour while awake. Respiratory t o monitor progress 4 times daily until 75% goal met then turn over to nursing. 9. Monitor saturations via oximetry every 4 hrs and titrate to order as indicated. -Pt. To be receptive to recommendations and participate with OT as able. RESTRAINT-RELATED GOALS: STRATEGIES TO ACHIEVE RESTRAINT GOALS: Offe Occupational Therapy Acute Initial Evaluation Note Patient Information Patient Name: Mellisa Carrizales Date of : 1935 Age: 80 y.o. History Encounter Diagnoses Code Name Primary? R26.9 Gait abnormality Yes Date of Onset: 12/14/15 Past Medical History Diagnosis Date DVT of leg (deep venous thrombosis) (HCC) Osteoarthritis Depression Gastric reflux Hypertension Hyperlipidemia Migraine Neuropathy Poor circulation Hypothyroid Full dentures upper & lower Seasonal allergies Claustrophobia Sleep apnea no CPAP Past Surgical History Procedure Laterality Date Hysterectomy Bladder repair x 3 Shoulder arthroscopy Bilateral Cervical spine surgery N/A 04/30/2015 Procedure: C5-6, C6-7 Anterior Cervical Discectomy Fusion; Surgeon: Umer Garcia MD; Location: [facility] MAIN OR Back surgery Right Foot surgery bilateral little toes & left big toe Tonsillectomy and adenoidectomy Lumbar spine surgery Left 12/14/2015 Procedure: L4-5 Lateral Anterior Interbody Fusion w/ L5-S1 Transforaminal Lumbar Interb dominique Fusion; Surgeon: Umer Garcia MD; Location: [facility] MAIN OR Allergies Allergen Reactions Codeine Sulfate Nausea And Vomiting Penicillin V Potassium Swelling Precautions/Limitations: falls, spinal, brace on when up Left Upper Extremity Weight-Bearing: (5 lb post op lifting precaution) Right Upper Extremity Weight-Bearing: (5 lb post op lifting precaution) Left Lower Extremity Weight-Bearing: full weight-bearing Right Lower Extremity Weight-Bearing: full weight-bearing Evaluation SUBJECTIVE: History of Presenting Problem: Mellisa Carrizales is a 80 y.o. who presents to therapy after having had a C5-C7 fusion by Dr. Garcia for neck and arm symptoms around 6 month s ago. It was known at this time that she also had low back pain and leg symptoms but neck surgery was more urgent. Prior to this surgery, pt was still having fairly significant back pain and B LE radicular sx. Pt is now s/p L4-S1 fusion. Pt went to spine class and is famili ar with brace and precautions. Says pain is under good control. Patient is right handed. OT Diagnosis: Generalized post-op debility Previous Level of Function: Ambulation: 0-->independent Transferrin-->independent Toiletin-->independent Bathin-->independent Dressin-->independent Eatin-->independent Communication: 0-->understands/communicates without difficulty Swallowin-->swallows foods/liquids without difficulty Prior Functional Level Comment: Pt. reports (I) with BADLs, but her caregiver would drive h er places and help with chores as needed. She did do her own laundry and occassionally made light meals. Walking distance and time was limited. Role/Relationships: Significant Relationships: parent to a son who lives with her. Living Environment/Accessibility: Lives With: child(ambrocio), adult Living Arrangements: house Home Accessibility: no concerns, stairs (2 railings present) Number of Stairs to Enter Home: 1 Number of Stairs Within Home: 0 Financial Concerns: none Transportation Available: family or friend will provide, car Living Environment Comment: Pt. has a step in shower, a toilet riser, will be getting a FWW , has a plastic tall stool she will use for her shower, and has a caregiver who will help he r as needed. Patient s Goals: "I want to get better to work on my barry" OT Visit Summary: OT was able to assess Pt's functional transfer OOB and to [facility]. She was connected to oxygen monitor machine so did not want to go far until she was cleared to take it off. Pt.'s nurse states she is OK for short distance so Pt. then wanted to go to sink an d wash up, change her gown, and brush her teeth. Pt. had no c/o increased pain or dizziness etc. She wanted to walk since it helped with her cabin fever feeling and relieved her pain . She was able to walk over 300 feet with FWW and SBA. Back to room where she was set-up to sit in a chair. oxygen sats taken and were at 93%. Placed back on oxygen monitoring jona cox. Occupational Therapy will follow Mellisa Carrizales for 1 f/u visit for caregiver training. Occupational Therapy Anticipated Discharge Needs: Ongoing occupational therapy required. DC disposition TBD. Post discharge occupational therapy recommendation: no further OT Equipment Recommendations: 2 wheeled walker (FWW), child welfare specialist, shower chair, seat riser Identified Problems Needing Skilled Intervention: Generalized post-op debility, aerobic c apacity/endurance Planned Interventions:Planned Therapy Interventions: ADL retraining, transfer training, ort hotic fitting/training Patient Status/Goals Reflects last filed data of patient status; may be from multiple contributors. ADLs LB, Level of [place]: set up required Assistive Device: none LB Dressing Assess/Train, Position: sitting, standing LB Dressing Assess/Train, Impairments: pain Toileting, Level of [place]: supervision required, set up required Assistive Device: bedside commode Toileting Assess/Train, Position: sitting Toileting Assess/Train, Impairments: strength decreased Grooming, Level of [place]: set up required Assistive Device: none Grooming Assess/Train, Position: standing Transfers Toilet, Level of [place]: set up required Toilet, Assistive Device: 2 wheeled walker (FWW), brace STG Goals OT Additional Goal #1: Pt. and caregiver to need no cues or express concerns regarding post -op precautions prior to discharge. Time to Achieve: by discharge Goal Status: new Demonstrates need for referral to other service: Assessment: Occupational therapy orders received and acknowledged. Objective impairments i nclude post-op precautions and pain. These impairments are causing functional limitations wi th patient s inability to perform LB ADLs and be safe with functional transfers. Complexit ies contributing to the need for skilled therapy include need to train caregiver prior to di scharge. Prognosis: good, to achieve stated therapy goals Patient and/or family has indicated understanding of treatment needs and actively participa landy in the creation of this plan for care. Today's Treatment Start Time: 1038 Stop time: 1120 Time Calculation: 42 minutes Missed Treatment Time: minutes Total Treatment Time: 42 minutes TimedTreatment Code Minutes: 32 minutes Objective: Education: post-op review. Treatment Provided: eval,, ADLs, and transfer training. Assessment: Pt. Was able to participate with no enc. And was eager to get up and move. Pt. Reports she is doing better and feels this surgery will cure her. Plan for next treatment: 1P. RG. OT to see for f/u with her caregiver for showering quest ions. Electronically signed by: Keily Iyer OT, 12/15/2015 15:33 lan of Care - Darren Barraza RN - 12/15/2015 2:30 PM PDTProblem: Patient Care Overview (Adult) Goal: Care Team Goals & Evaluation PROBLEM-RELATED GOALS: 1. Mellisa will void within 6 hours of arriving to the floor post op. 2. Mellisa will tolerate solid food and PO pain med by POD 1. 3. Mellisa s sensation will be intact and muscle strength of 5/5 by POD 2 4. Mellisa will achieve the pain score of 3/10 by POD 2 5. Mellisa will ambulate on day of surgery. 6. Mellisa will have a BM by POD 3. 7. Mellisa will be free of s/s of infections through POD 5. 8. Mellisa will meet 75% of predicted goal of 1900 by 12/17/2015 9. Mellisa will maintain adequate oxygenation via oximetry with SpO2 >92% by 10. Mellisa will be able to don LSO independently by 12/16/15. STRATEGY TO ACHIEVE GOALS: 1. Offer toileting, encourage ambulation to bathroom. If no void in 6 hours, then bladder s can pt and follow MD order. 2. Start pt on liquids on arrival to the floor, increase diet as tolerate. Once taking juic e or solids, start pt on PO pain meds. 3. Assess sensation and strength Q 4 hrs and prn. If decline noted, notify MD. Teach lumbar /cervical precautions, cue prn, assist as needed. Encourage ambulation in halls and sitting in chair for meals. 4. Assess pain Q 4 hr and prn. Medicate prn, re-assess pain 30-60 minutes after med and re- medicate prn. 5. Dangle pt on admit and encourage ambulation once pt is awake. Encourage ambulation to e bathroom. 6. Give stool softener and laxative daily. If no BM by POD 2, use prn bowel meds until a BM is achieved. If discharged before POD 2, complete teaching to prevent constipation. 7. Assess VS and temperature, dressing and lab work as directed. Notify MD w/ any concerns. 8. Instruct patient in the use of Incentive Spirometry and/or deep breath and cough. Nursin g and Respiratory to work together to have patient use every hour while awake. Respiratory t o monitor progress 4 times daily until 75% goal met then turn over to nursing. 9. Monitor saturations via oximetry every 4 hrs and titrate to order as indicated. RESTRAINT-RELATED GOALS: STRATEGIES TO ACHIEVE RESTRAINT GOALS: Offe Outcome: Improving Goal Evaluation: Mellisa is ambulating to the toilet to void. voiding large amounts. Muscle strength 5/5. Pa tient using the incetive spirometer, 02 sats monitored continuosly. lan of Care - Otto Perkins, OPAL - 12/15/2015 2:19 PM PDTProblem: Patient Care Overview (Adult) Goal: Care Team Goals & Evaluation PROBLEM-RELATED GOALS: 1. Mellisa will void within 6 hours of arriving to the floor post op. 2. Mellisa will tolerate solid food and PO pain med by POD 1. 3. Mellisa s sensation will be intact and muscle strength of 5/5 by POD 2 4. Mellisa will achieve the pain score of 3/10 by POD 2 5. Mellisa will ambulate on day of surgery. 6. Mellisa will have a BM by POD 3. 7. Mellisa will be free of s/s of infections through POD 5. 8. Mellisa will meet 75% of predicted goal of 1900 by 12/17/2015 9. Mellisa will maintain adequate oxygenation via oximetry with SpO2 >92% by 10. Mellisa will be able to don LSO independently by 12/16/15. STRATEGY TO ACHIEVE GOALS: 1. Offer toileting, encourage ambulation to bathroom. If no void in 6 hours, then bladder s can pt and follow MD order. 2. Start pt on liquids on arrival to the floor, increase diet as tolerate. Once taking juic e or solids, start pt on PO pain meds. 3. Assess sensation and strength Q 4 hrs and prn. If decline noted, notify MD. Teach lumbar /cervical precautions, cue prn, assist as needed. Encourage ambulation in halls and sitting in chair for meals. 4. Assess pain Q 4 hr and prn. Medicate prn, re-assess pain 30-60 minutes after med and re- medicate prn. 5. Dangle pt on admit and encourage ambulation once pt is awake. Encourage ambulation to e bathroom. 6. Give stool softener and laxative daily. If no BM by POD 2, use prn bowel meds until a BM is achieved. If discharged before POD 2, complete teaching to prevent constipation. 7. Assess VS and temperature, dressing and lab work as directed. Notify MD w/ any concerns. 8. Instruct patient in the use of Incentive Spirometry and/or deep breath and cough. Nursin g and Respiratory to work together to have patient use every hour while awake. Respiratory t o monitor progress 4 times daily until 75% goal met then turn over to nursing. 9. Monitor saturations via oximetry every 4 hrs and titrate to order as indicated. RESTRAINT-RELATED GOALS: STRATEGIES TO ACHIEVE RESTRAINT GOALS: Offe Outcome: Improving Goal Evaluation: SpO2 96% on RA, needed O2 last night while sleeping at 2 lpm NC, using IS often on own, con marcos to monitor. lan of Care - Mariposa Costa - 12/15/2015 11:34 AM PDTDischarge Planning: Met with Mellisa this morning regarding discharge planning. Mellisa lives with her son in [place]. She will have a caregiver during the day and her so n will help out at night. She will need a FWW, which she doesn't have a preference on the [employer]. This CM will use [employer]. Faxed order and PT notes. Received the Communication Resu lt Report: result ok. Home health was declined. Her caregiver, Julissa will transport her home at discharge. Electronically signed by: Mariposa Thomas 12/15/2015 11:43 lan of Care - Jaclyn Hargrove, PT - 12/15/2015 9:42 AM PDTFormatting of this note might be different from the re ginal. Problem: Patient Care Overview (Adult) Goal: Care Team Goals & Evaluation PROBLEM-RELATED GOALS: 1. Mellisa will void within 6 hours of arriving to the floor post op. 2. Mellisa will tolerate solid food and PO pain med by POD 1. 3. Mellisa s sensation will be intact and muscle strength of 5/5 by POD 2 4. Mellisa will achieve the pain score of 3/10 by POD 2 5. Mellisa will ambulate on day of surgery. 6. Mellisa will have a BM by POD 3. 7. Mellisa will be free of s/s of infections through POD 5. 8. Mellisa will meet 75% of predicted goal of 1900 by 12/17/2015 9. Mellisa will maintain adequate oxygenation via oximetry with SpO2 >92% by 10. Mellisa will be able to don LSO independently by 12/16/15. STRATEGY TO ACHIEVE GOALS: 1. Offer toileting, encourage ambulation to bathroom. If no void in 6 hours, then bladder s can pt and follow MD order. 2. Start pt on liquids on arrival to the floor, increase diet as tolerate. Once taking juic e or solids, start pt on PO pain meds. 3. Assess sensation and strength Q 4 hrs and prn. If decline noted, notify MD. Teach lumbar /cervical precautions, cue prn, assist as needed. Encourage ambulation in halls and sitting in chair for meals. 4. Assess pain Q 4 hr and prn. Medicate prn, re-assess pain 30-60 minutes after med and re- medicate prn. 5. Dangle pt on admit and encourage ambulation once pt is awake. Encourage ambulation to [facility] bathroom. 6. Give stool softener and laxative daily. If no BM by POD 2, use prn bowel meds until a BM is achieved. If discharged before POD 2, complete teaching to prevent constipation. 7. Assess VS and temperature, dressing and lab work as directed. Notify MD w/ any concerns. 8. Instruct patient in the use of Incentive Spirometry and/or deep breath and cough. Nursin g and Respiratory to work together to have patient use every hour while awake. Respiratory t o monitor progress 4 times daily until 75% goal met then turn over to nursing. 9. Monitor saturations via oximetry every 4 hrs and titrate to order as indicated. RESTRAINT-RELATED GOALS: STRATEGIES TO ACHIEVE RESTRAINT GOALS: Offe Physical Therapy Acute Initial Evaluation Note Patient Information Patient Name: Mellisa Carrizales Date of : 1935 Age: 80 y.o. History Encounter Diagnoses Code Name Primary? R26.9 Gait abnormality Yes Date of Onset: 12/14/15 Past Medical History Diagnosis Date DVT of leg (deep venous thrombosis) (HCC) Osteoarthritis Depression Gastric reflux Hypertension Hyperlipidemia Migraine Neuropathy Poor circulation Hypothyroid Full dentures upper & lower Seasonal allergies Claustrophobia Sleep apnea no CPAP Past Surgical History Procedure Laterality Date Hysterectomy Bladder repair x 3 Shoulder arthroscopy Bilateral Cervical spine surgery N/A 04/30/2015 Procedure: C5-6, C6-7 Anterior Cervical Discectomy Fusion; Surgeon: Umer Garcia MD; Location: [facility] MAIN OR Back surgery Right Foot surgery bilateral little toes & left big toe Tonsillectomy and adenoidectomy Allergies Allergen Reactions Codeine Sulfate Nausea And Vomiting Penicillin V Potassium Swelling Precautions/Limitations: spinal, brace on when up ("B" brace) Left Upper Extremity Weight-Bearing: (5 lb post op lifting precaution) Right Upper Extremity Weight-Bearing: (5 lb post op lifting precaution) Left Lower Extremity Weight-Bearing: full weight-bearing Right Lower Extremity Weight-Bearing: full weight-bearing EVALUATION: SUBJECTIVE: History of Presenting Problem: Mellisa Carrizales is a 80 y.o. female that had a C5-C7 fusion by Dr. Garcia for neck and arm symptoms around 6 months ago. It was known at this time that she also had low back pain and leg symptoms but neck surgery was more urgent. Prior to this surgery, pt was still having fairly significant back pain and B LE radicular sx. Pt is now s/p L4-S1 fusion. Pt went to spine class and is familiar with brace and precau tions. Says pain is under good control. PT Diagnosis: decreased balance, gait instability Impairments Found: gait, locomotion, and balance, muscle performance, posture, sensory Inte grity Previous Level of Function: Ambulation: 0-->independent Transferrin-->independent Toiletin-->independent Bathin-->independent Dressin-->independent Eatin-->independent Communication: 0-->understands/communicates without difficulty Swallowin-->swallows foods/liquids without difficulty Prior Functional Level Comment: Independent but was limited in activity Role/Relationships: Living Environment/Accessibility: Lives With: child(ambrocio), adult Living Arrangements: house Home Accessibility: no concerns, stairs (2 railings present) Number of Stairs to Enter Home: 1 Number of Stairs Within Home: 0 Financial Concerns: none Transportation Available: family or friend will provide, car Living Environment Comment: riser on toilet Patient s Goals: "I want to get rid of the pain and I want to be able to walk and do thin gs that I used to (e.g. gardening, dishes, etc.) OBJECTIVE : Patient Status/Goals: Reflects last filed data of patient status; may be from multiple contributors. Gait Level of [place] : supervision required, verbal cues required Assistive Device: 2 wheeled walker (FWW) Distance (feet): 350 Stairs Number of Stairs: 1 Handrail Location: right side (ascending) Level of [place]: verbal cues required, contact guard assist Technique Used: step to step (ascending), step to step (descending) Impairments: impaired balance Transfers Sit-Stand, Level of [place]: supervision required, verbal cues required Stand-Sit, Level of [place]: supervision required, verbal cues required [id number], Assistive Device: 2 wheeled walker (FWW) Impairments: strength decreased, sensation decreased, impaired balance, postural control im paired, pain Bed Mobility Roll Left, Level of [place]: not tested Scoot/Bridge, Level of [place]: verbal cues required, supervision required Supine to Sit, Level of [place]: verbal cues required, contact guard assist Sit to Supine, Level of [place]: moderate assist (50% patient effort), verbal cues req uired Safety Issues: impaired trunk control for bed mobility (pt required cues for log roll) Impairments: impaired balance, strength decreased, pain, postural control impaired Functional Endurance ROM ROM Testing Results: no range of motion deficits identified Strength Pt able to complete AROM heel slide bilaterally; R dorsiflexion to. 1/2 grade weaker than L STG GOALS Bed Mobility Goal, Activity Type: supine to sit/sit to supine [place] Level: independent Assistive Device: none Time to Achieve: 2 days Goal Status: new Transfer Training Goal, Activity Type: sit to stand/stand to sit [place] Level: modified independence Assistive Device: 2 wheeled walker (FWW) Time to Achieve: 2 days Goal Status: new Gait Training Goal, [place] Level: modified independence Assistive Device: 2 wheeled walker (FWW) Distance: 350 Time to Achieve: 2 days Goal Status: new Stairs Goal, [place] Level: supervision required Assistive Device: none Number of Stairs: 1 Time to Achieve: 2 days Goal Status: new Additional Goal #1: Pt to be able to state post op precautions and don/doff/adjust LSO inde pendently Time to Achieve: 2 days Goal Status: new Assessment: Physical therapy orders received and acknowledged. Objective impairments inclu de decreased balance, gait instability. These impairments are causing functional limitations with patient s inability to safely and independently perform bed mobility, transfers, and gait. Complexities contributing to the need for skilled therapy include neuropathy. Rehabilitation potential: Patient demonstrates good potential to achieve established goals and good potential to achieve prior status to address the documented impairments by partici pating in skilled physical therapy services. PLAN: bed mobility training, transfer training, gait training, stair training, orthotic fitting/t raining, strengthening, patient/family education, postural re-education Physical Therapy will follow Mellisa Carrizales daily until discharge from therapy or disch arged from the hospital. Anticipated days that therapy will be provided: 2 days Physical Therapy Anticipated Discharge Needs: Ongoing PT services required. DC disposition TBD. Post discharge physical therapy recommendation: outpatient therapy (when ordered by neuro team) Equipment Recommendations: 2 wheeled walker (FWW) (pt has 2 canes at home but no walker) Patient and/or family has indicated understanding of treatment needs and actively participa landy in the creation of this plan for care. Today's Treatment Start Time: 829 Stop time: 914 Time Calculation: 45 minutes Missed Treatment Time: minutes Total Treatment Time: 45 minutes TimedTreatment Code Minutes: 20 minutes Objective: Treatment Provided: PT eval completed. Reviewed post op precautions and LSO with pt. Bed mo bility, transfer, gait and stair training. Education: Pt provided with ed re: PT POC and expected progression of rehab. Assessment: Pt appears motivated and should do well but struggles with bed mobility and LSO and requires frequent cues and assist. Also trial gait without FWW but pt was visibly unste paul on her feet so needs FWW for now. Recommend that pt will benefit from 1-2 more sessions of PT in order to learn how to safely and independently manage LSO and improve safety and in dependence with functional mobility in order to facilitate safe return to home environment. Plan for next treatment: 1P;KH;LSO, bed mobility, transfer, gait and stair training. Electronically signed by: Jaclyn Hargrove, PT, 12/15/2015 9:35 lan of Care - R Flavio jimenez Chaplain - 12/15/2015 9:25 AM PDTProblem: Spiritual Distress, Risk/Actual (Adult,Obstetrics,Pediatric) Goal: Spiritual Well-being Patient will demonstrate the desired outcomes by discharge/transition of care. Spiritual Care Mellisa Carrizales is a 80 y.o. 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 Spiritual Evaluation: Patient was sitting up in bed reading a book. She stated she was doin g much better today, especially since she was finally able to eat and have some water. Patie nt was NPO due to her having surgery. At first she was a little frustrated her surgery times changed but now that everything is done she was in high spirits and even told me about her three loves of her life. The first one is her son, who brought her in and is watching the se cond love of her life her 15 year old dog Chemo. She loss her third love Cliff, also a dog that would have been 15 years old this year. Chemo sleeps with her everyday so she's been missing her friendly dog. She does her best to take care of him since he's always with her. Patient also mentioned she was waiting to do her physical therapy today and get up and walk around a little. Patient is [employer]ism and I wished her good health. Spiritual Intervention: Patient would like to get well soon and go home to her 15 year old dog Chemo. She was very polite and nice. Had a good visit with her and wished her good [facility]. Spiritual Outcomes: Patient thank me for the visit. Spiritual Goals/Follow up: Bundle Packer will continue to provide ongoing emotional/spiritual support for patient as requested. lan of Agustin Raymond, EXPANSION JOINT FINISHER - 12/15/2015 5:09 AM PDTProblem: Patient Care Overview (Adult) Goal: Care Team Goals & Evaluation PROBLEM-RELATED GOALS: 1. Mellisa will void within 6 hours of arriving to the floor post op. 2. Mellisa will tolerate solid food and PO pain med by POD 1. 3. Mellisa s sensation will be intact and muscle strength of 5/5 by POD 2 4. Mellisa will achieve the pain score of 3/10 by POD 2 5. Mellisa will ambulate on day of surgery. 6. Mellisa will have a BM by POD 3. 7. Mellisa will be free of s/s of infections through POD 5. 8. Mellisa will meet 75% of predicted goal of 1900 by 12/17/2015 9. Mellisa will maintain adequate oxygenation via oximetry with SpO2 >92% by 12/17/2015 STRATEGY TO ACHIEVE GOALS: 1. Offer toileting, encourage ambulation to bathroom. If no void in 6 hours, then bladder s can pt and follow MD order. 2. Start pt on liquids on arrival to the floor, increase diet as tolerate. Once taking juic e or solids, start pt on PO pain meds. 3. Assess sensation and strength Q 4 hrs and prn. If decline noted, notify MD. Teach lumbar /cervical precautions, cue prn, assist as needed. Encourage ambulation in halls and sitting in chair for meals. 4. Assess pain Q 4 hr and prn. Medicate prn, re-assess pain 30-60 minutes after med and re- medicate prn. 5. Dangle pt on admit and encourage ambulation once pt is awake. Encourage ambulation to [facility] bathroom. 6. Give stool softener and laxative daily. If no BM by POD 2, use prn bowel meds until a BM is achieved. If discharged before POD 2, complete teaching to prevent constipation. 7. Assess VS and temperature, dressing and lab work as directed. Notify MD w/ any concerns. 8. Instruct patient in the use of Incentive Spirometry and/or deep breath and cough. Nursin g and Respiratory to work together to have patient use every hour while awake. Respiratory t o monitor progress 4 times daily until 75% goal met then turn over to nursing. 9. Monitor saturations via oximetry every 4 hrs and titrate to order as indicated. RESTRAINT-RELATED GOALS: STRATEGIES TO ACHIEVE RESTRAINT GOALS: Offe Outcome: Unchanged Goal Evaluation: Pt on 2 l/m nc sats 95 %, BS clear , Pt meets 75% of predicted on IS, lan of Care - Omar Navarro RN - 12/15/2015 4:37 AM PDTProblem: Patient Care Overview (Adult) Goal: Care Team Goals & Evaluation PROBLEM-RELATED GOALS: 1. Mellisa will void within 6 hours of arriving to the floor post op. 2. Mellisa will tolerate solid food and PO pain med by POD 1. 3. Mellisa s sensation will be intact and muscle strength of 5/5 by POD 2 4. Mellisa will achieve the pain score of 3/10 by POD 2 5. Mellisa will ambulate on day of surgery. 6. Mellisa will have a BM by POD 3. 7. Mellisa will be free of s/s of infections through POD 5. 8. Mellisa will meet 75% of predicted goal of 1900 by 12/17/2015 9. Mellisa will maintain adequate oxygenation via oximetry with SpO2 >92% by 12/17/2015 STRATEGY TO ACHIEVE GOALS: 1. Offer toileting, encourage ambulation to bathroom. If no void in 6 hours, then bladder s can pt and follow MD order. 2. Start pt on liquids on arrival to the floor, increase diet as tolerate. Once taking juic e or solids, start pt on PO pain meds. 3. Assess sensation and strength Q 4 hrs and prn. If decline noted, notify MD. Teach lumbar /cervical precautions, cue prn, assist as needed. Encourage ambulation in halls and sitting in chair for meals. 4. Assess pain Q 4 hr and prn. Medicate prn, re-assess pain 30-60 minutes after med and re- medicate prn. 5. Dangle pt on admit and encourage ambulation once pt is awake. Encourage ambulation to e bathroom. 6. Give stool softener and laxative daily. If no BM by POD 2, use prn bowel meds until a BM is achieved. If discharged before POD 2, complete teaching to prevent constipation. 7. Assess VS and temperature, dressing and lab work as directed. Notify MD w/ any concerns. 8. Instruct patient in the use of Incentive Spirometry and/or deep breath and cough. Nursin g and Respiratory to work together to have patient use every hour while awake. Respiratory t o monitor progress 4 times daily until 75% goal met then turn over to nursing. 9. Monitor saturations via oximetry every 4 hrs and titrate to order as indicated. RESTRAINT-RELATED GOALS: STRATEGIES TO ACHIEVE RESTRAINT GOALS: Offe Outcome: Improving Goal Evaluation: Patient arrived to floor 2030 last night s/p L4-S1 fusion. 1. Voiding c/y urine without issues 2. Tolerating solid food and PO pain medicine without N/V, fat/chol modified, general diet ordered 3. 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 Muscle strength 5/5 thro ughout. 4. Reports pain 4-5/10 to lower back, medicated with Oxy PO with good effect. 5. Ambulates with CGA and FWW, LSO B-bracing, doing well. Following lumbar precautions well . Needs some assistance donning/doffing brace. 6. BT+ throughout, colace given last night. Last BM 12/13 7. Afebrile, Bandaids to back CDI, LIZBETH with 90 serosanguineous output overnight. 8. 2 lpm n/c through the night to maintain SpO2. Continuous pulse ox in place. Electronically signed by: OMAR SANDRA RN 12/15/2015 4:37 p Note - Romario Garcia MD - 12/14/2015 6:26 PM PDTFormatting of this note might be different from the gudelia l. Operative Note Mellisa Bryant Sjurset 80 y.o. female 1935 [id number] Proc. Date 12/14/2015 Preop Dx Lumbar degenerative disc disease Lumbar foraminal stenosis Lumbar facet arthropathy Lumbar spinal stenosis Postop Dx same Procedure 1. Minimally invasive lumbar fusion via anterior and posterior approaches 2. Combined posterolateral and posterior interbody arthrodesis L5-S1 3. Anterior lumbar interbody arthrodesis L4-5 4. Posterolateral lumbar arthrodesis L4 and L5 5. Posterior spinal instrumentation L4-S1 with use of Precept 6. Placement of PEEK interbody spacer L4-5 and L5-S1 7. L5 laminectomy, L5-S1 facetectomy, L5 and S1 foraminotomy for decompression of L5 and S1 nerves 8. Microsurgical technique with use of operating microscope Anesthesia General, Dr. Steven Roldan Surgeon Umer Garcia MD - Primary Project Financial Analyst GABRIEL Noonan EBL 244 Findings L4-S1 DDD, severe at L5-S1. B bracing. Complications none Specimens * No specimens in log * Drains LIZBETH Operative details: After obtaining consent, the patient was taken to the operating room and placed under gener al anesthesia. She was then positioned in a lateral position with the right side up. She was connected to the neurovision neuromonitoring system and secured to the bed with tape. Her f ben, neck, chest and extremities positioned and padded appropriately. Her flank was prepped and draped in standard fashion and a timeout was performed. All members of the surgical tea m agreed with the timeout. Fluoroscopy was then used to localize the levels of L4-5 on lateral fluoroscopy, and a skin incision was made in the left lateral flank approximately 3 cm in length. Subcutaneous tiss ues were dissected with bovie and blunt dissection to the abdominal wall. The musculature wa s divided with tonsils and then finger sweeping was used to develop the retroperitoneal spac e. An initial dilator was then inserted onto the surface of the psoas at L4-5 and neuromonit oring was performed. The nerves were identified posteriorly at 20. Sequential dilatation and monitor was performed and then a retractor was inserted over the dilators. The light source s were connected and the area was inspected visually and with a ball tip neuro probe. No ner ves were identified. The solomon was then inserted into the posterior blade, and the retractor was opened anteriorly. The disc at L4-5 was then removed in a piecemeal fashion by first incising it and then usin g Martha, broaches, curretes, and pituitary rongeurs. The endplates were prepared for arthrod esis. Trials were then inserted and a 15 degree by 10 by 22 by 55 mm spacer was determined t o be the appropriate size. A PEEK spacer was prepared filling it with [place]/BMP and then t amping it into the interspace at L4-5. The retractor was then removed obtaining hemostasis a long the tract. The fascia was then closed with 0 Vicryl sutures, followed by closure of the skin with two layers of 2-0 Quill-type sutures followed by closure of the skin with skin glue. The wound w as dressed with steristrips and a Band-Aid. She was then positioned in a prone position on the Harjit axis table with her face, neck, chest and extremities positioned and padded appropriately. Her back was prepped and draped i n standard fashion and a timeout was performed. All members of the surgical team agreed with the timeout. Fluoroscopy was then used to localize the level of L4-S1 on lateral fluoroscopy, and then 2 skin incisions were made approximately 4 cm in length, approximately 3.75 cm off the midlin e in a paramedian fashion on both sides. Subcutaneous tissues were made hemostatic with Bovi e cautery. Pedicle cannulas were then guided into pedicles at L4, L5 and S1 using AP fluoro scopic guidance and lateral confirmation. There were no breaches to the canal or the pedicl es. Bone marrow was aspirated in the pedicles and then the cannulas were removed after alvin ulating them with K-wires. The wires were secured to the drape. Working between the wires starting on the patient's right side, a METRx tube was docked lyndsey n on the L4-5 and L5-S1 lamina facet complexes. Bovie cautery was used to expose the lamina of L4, L5, and S1 and the L4-5 and L5-S1 facets. High-speed drill was used to decorticate the exposed bone, and then morselized local bone autograft obtained from the drilling and ca ncellous chips with bone marrow aspirate were packed in the posterolateral aspect of the spi ne along the decorticated bone. This completed the posterolateral fusion from L4-S1. Attention was then paid to the left and more symptomatic side where a decompression was per formed L5-S1. A METRx tube was docked on the patient's lamina and facet complex and then a high-speed drill was used to drill through the lamina and the pars segment using the micros ope for microsurgical dissection. The drilling allowed for an en bloc removal of the L5 strong jordan and the L5 inferior facet, which was harvested for planned arthrodesis. The S1 superior facet was then removed from the foramen by disconnecting it from its base with a high-speed drill and removing the fragment with pituitary rongeur. The superior lamina of S1 was brie lyndsey with a Kerrison to decompress with traversing root to its proximal foramen. The ligamen werner was then taken down with a microhook and Kerrison rongeur, decompressing the underlying dura. Once the disk space could adequately be accessed, pituitary rongeurs, end plate shave rs, curettes, and Kerrison rongeurs were used to widen the decompression and perform an aggr essive diskectomy. The endplates were prepared for arthrodesis. The exiting L5 nerve and t raversing S1 nerve were then felt to be free of compression. Trials were then inserted, and a 8 x 30 mm PEEK spacer using Coroent LO 12 was determined t o be the appropriate size. The interspace was packed with cancellous chips and also with mo rselized local autograft. The PEEK spacer was filled with morselized local bone autograft a nd BMP. The PEEK spacer was then tamped into the posterior interbody space and confirmed to appropriate position on AP and lateral fluoroscopy at L5-S1. Additional bony materials wer e then packed lateral to the PEEK spacer. The tubular retractor was then removed here, obta ining hemostasis with FloSeal and bipolar cautery. The previously placed wires were then used for placement of instrumentation. The pedicles were undertapped and then instrumented. 7.5 x 55 mm Precept screws were inserted at L4 and 7.5 x 50 mm screws were inserted at L5. 7.5 x 45 mm screws were inserted at S1. The purcha se at L4 was moderate. The screw towers were aligned, and then a 60 mm minda was passed throu gh the towers and successfully reduced down bilaterally. Set screws were inserted and then final tightening of the set screws was performed. Then the towers and minda passer were remov ed fully. Final fluoroscopic images confirmed appropriate placement of instrumentation. 20 mL of exparel was infiltrated into the paraspinous muscles. Epidural blood was evacuated using a METRx tube, a drain was placed at the site, and it was tunneled out the skin. The fascia was then closed bilaterally with 0 Vicryl sutures, follow ed by closure of the skin with two layers of 2-0 Quill-type sutures. Then 20 mL of 0.5% Shawn roxanna with epinephrine was infiltrated in the back followed by closure of the skin with skin glue. The wounds were dressed with steristrips/Band-Aids. The drain was secured with a Band- Aid and Tegaderm. All counts were reported as correct. The patient tolerated the procedure and was transferr ed to the recovery room in stable condition. Electronically signed by: Umer Garcia MD 12/14/2015 18:23 [facility] rief Op Note - Jacob Garcia MD - 12/14/2015 6:23 PM PDTFormatting of this note might be different from the origin al. Brief Operative Note Mellisa Bryant Sjurset 80 y.o. female 1935 [id number] Proc. Date 12/14/2015 Preop Dx Lumbar degenerative disc disease Lumbar foraminal stenosis Lumbar facet arthropathy Lumbar spinal stenosis Postop Dx same Procedure 1. Minimally invasive lumbar fusion via anterior and posterior approaches 2. Combined posterolateral and posterior interbody arthrodesis L5-S1 3. Anterior lumbar interbody arthrodesis L4-5 4. Posterolateral lumbar arthrodesis L4 and L5 5. Posterior spinal instrumentation L4-S1 with use of Precept 6. Placement of PEEK interbody spacer L4-5 and L5-S1 7. L5 laminectomy, L5-S1 facetectomy, L5 and S1 foraminotomy for decompression of L5 and S1 nerves 8. Microsurgical technique with use of operating microscope Anesthesia General, Dr. Steven Roldan Surgeon Umer Garcia MD - Primary Project Financial Analyst GABRIEL Noonan EBL 244 Findings L4-S1 DDD, severe at L5-S1. B bracing. Complications none Specimens * No specimens in log * Drains LIZBETH Electronically signed by: Umer Garcia MD 12/14/2015 18:23 [facility]ron[facility] signed by Umer Garcia MD at 016 6:26 PM PDTPlan of Care - Umer Alarcon PT - 12/14/2015 4:44 PM PDTProblem: Patie nt Care Overview (Adult) Goal: Care Team Goals & Evaluation PROBLEM-RELATED GOALS: STRATEGY TO ACHIEVE GOALS: RESTRAINT-RELATED GOALS: STRATEGIES TO ACHIEVE RESTRAINT GOALS: Missed Visit Patient Information Patient Name: Mellisa Carrizales Date of : 1935 Age: 80 y.o. The patient was unable to be seen for today's scheduled visit due to patient still in surge ry. Plan: Eval in a.m. Electronically signed by: Umer Alarcon PT, 12/14/2015 16:42 documented in thi s encounter Plan of Treatment + +------+--------+ + + | Name | Type | Priori | Associated Diagnoses | Order Schedule | | | | ty | | | + +------+--------+ + + | DME: Walker | DME | Routin | Gait abnormality | DME 1 Time for 1 | | | | e | | Occurrences starting | | | | | | 12/14/2015 until | | | | | | 12/14/2015 | + +------+--------+ + + documented as of this encounter Procedures + +--------+ + + + | Procedure Name | Priori | Date/Time | Associated Diagnosis | Comments | | | ty | | | | + +--------+ + + + | XR LUMBAR SPINE 2 OR | STAT | 12/14/2015 | | Results for this | | 3 VW | | 8:25 PM | | procedure are in the | | | | PDT | | results section. | + +--------+ + + + | FL ROB STATS NO | Routin | 12/14/2015 | | Results for this | | CHARGE | e | 6:07 PM | | procedure are in the | | | | PDT | | results section. | + +--------+ + + + | FUSION LUMBAR W/ | | 12/14/2015 | Other | | | LATERAL APPROACH | | 3:21 PM | intervertebral disc | | | (XLIF) | | PDT | degeneration of | | | | | | lumbar region | | + +--------+ + + + +---+--------+ | | Case | | | Notes | | | | | | Origin | | | al | | | Schedu | | | ler | | | Commen | | | ts/Not | | | es | | | Sent | | | Over | | | 12/02/ | | | 2015 @ | | | | | | 1054:C | | | -ARM, | | | DRILL, | | | | | | MICROS | | | COPE, | | | METRX, | | | XLIF, | | | | | | PRECEP | | | T/TLIF | | | | | | CAGES, | | | BMP, | | | CHIPS, | | | | | | GRAFTO | | | N, | | | JACKSO | | | N AXIS | | | | | | FRAMEE | | | STIMAT | | | ED | | | TIME: | | | 3 | | | HOURSS | | | SHRUTI: | | | LEFT | +---+--------+ | | | | | Specia | | | l | | | Needs | | | Gaston | | | (Nuvas | | | paz) - | | | XLIF, | | | | | | Precep | | | t/TLIF | | | Cages | +---+--------+ + +--------+ +---+ + | CULTURE, MRSA | Routin | 12/14/2015 | | Results for this | | | e | 2:25 PM | | procedure are in the | | | | PDT | | results section. | + +--------+ +---+ + | HEMOGLOBIN | Routin | 12/14/2015 | | Results for this | | | e | 1:58 PM | | procedure are in the | | | | PDT | | results section. | + +--------+ +---+ + | BASIC METABOLIC | Routin | 12/14/2015 | | Results for this | | PANEL | e | 1:58 PM | | procedure are in the | | | | PDT | | results section. | + +--------+ +---+ + | ECG 12 LEAD | Routin | 12/14/2015 | | Results for this | | | e | 1:52 PM | | procedure are in the | | | | PDT | | results section. | + +--------+ +---+ + documented in this encounter Results XR Lumbar Spine 2 or 3 Vw (12/14/2015 8:25 PM PDT) + + | Specimen | + + | | + + + + + | Narrative | Performed At | + + + | TWO VIEWS LUMBAR SPINE 12/14/2015 8:25 PM CLINICAL HISTORY: post | [facility] | | op fusion COMPARISON: LUMBAR RADIOGRAPHS MARCH 03, 2015 | | | FINDINGS: Five non rib-bearing, lumbar type vertebrae are visible. | | | Rightward lumbar curvature persists. Interbody and posterior minda | | | and pedicle screw fusion hardware now extends from L4 through S1 and | | | appears intact and well seated. Disc height is improved at the | | | operated levels. Lumbar vertebral height is maintained, without | | | evident fracture or spondylolisthesis. There is multilevel | | | vertebral spondylosis. Moderate axial narrowing of the left hip | | | joint and marginal osteophyte formation are apparent. The | | | sacroiliac joints and imaged sacrum, bony pelvis and lower ribs are | | | otherwise unremarkable. A surgical drain projects over the left | | | dorsal lumbar soft tissues. There is confluent aortoiliac | | | calcification. IMPRESSION - 1. SATISFACTORY APPEARANCE | | | STATUS POST OPERATIVE FUSION EXTENDING FROM L4 THROUGH S1. 2. 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 Dictated and Signed | | | by: Shawn Ulrich MD Electronically signed: 12/15/2015 8:35 AM | | + + + + + | Procedure Note | + + | Brian, Rad Results In - 12/15/2015 8:38 AM PDT TWO VIEWS LUMBAR SPINE 12/14/2015 8:25 PM | | | | CLINICAL HISTORY: post op fusion | | | | COMPARISON: LUMBAR RADIOGRAPHS MARCH 03, 2015 | | | | FINDINGS: Five non rib-bearing, lumbar type vertebrae are visible. Rightward | | lumbar curvature persists. Interbody and posterior minda and pedicle screw fusion | | hardware now extends from L4 through S1 and appears intact and well seated. | | Disc height is improved at the operated levels. Lumbar vertebral height is | | maintained, without evident fracture or spondylolisthesis. There is multilevel | | vertebral spondylosis. Moderate axial narrowing of the left hip joint and | | marginal osteophyte formation are apparent. The sacroiliac joints and imaged | | sacrum, bony pelvis and lower ribs are otherwise unremarkable. A surgical drain | | projects over the left dorsal lumbar soft tissues. There is confluent | | aortoiliac calcification. | | | | IMPRESSION - | | | | 1. SATISFACTORY APPEARANCE STATUS POST OPERATIVE FUSION EXTENDING FROM L4 | | THROUGH S1. | | | | 2. 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 | | | | Dictated and Signed by: Shawn Ulrich MD | | Electronically signed: 12/15/2015 8:35 AM | + + + +---------+ + + | Performing | Address | City/State/[facility] | Phone Number | | Organization | | | | + +---------+ + + | [facility] | | | | + +---------+ + + SOHEILA Joel Corona No Charge (12/14/2015 6:07 PM PDT) + [...] | | | + +---------+ + + Culture, MRSA (12/14/2015 2:25 PM PDT) + + + + + + | Component | Value | Ref Range | Performed | Pathologist | | | | | At | Signature | + + + + + + | Culture | Negative for MRSA by | | [facility] | | | | chromogenic agar method | | [facility] | | | [facility] | | | | | [facility] - | | | | | | LABORATORY | | + + + + + + + + | Specimen | + + | Respiratory - Both | | anterior nares (body | | structure) | + + + + + + + | Performing | Address | City/State/Zipcode | Phone Number | | Organization | | | | + + + + + | [facility] | [address] | [place] | [phone] | | [facility] | | [id number] | | | - LABORATORY | | | | + + + + + Hemoglobin (12/14/2015 1:58 PM PDT) + +-------+ + + + | Component | Value | Ref Range | Performed | Pathologist | | | | | At | Signature | + +-------+ + + + | Hemoglobin | 12.2 | 11.5 - 16.0 | [facility] | | | | | g/dL | [facility] | | | | | | MEDICAL [...] + | [facility] | [address] | [place], [place] | [phone] | | [facility] | | [address] | | | - LABORATORY | | | | + + + + + Basic Metabolic Panel (12/14/2015 1:58 PM PDT) + + + + + + | Component | Value | Ref Range | Performed | Pathologist | | | | | At | Signature | + + + + + + | Na | 140 | 136 - 149 | [facility] | | | | | mmol/L | [facility] | | | | | | [facility] | | | | | | [facility] - | | | | | | LABORATORY | | + + + + + + | K | 3.3 (L) | 3.5 - 5.1 | [facility] | | | | | mmol/L | [facility] | | | | | | MEDICAL | | | | | | CENTER - | | | | | | LABORATORY | | + + + + + + | Cl | 104 | 98 - 109 mmol/L | [facility] | | | | | | [facility] | | | | | | [facility] | | | | | | CENTER - | | | | | | LABORATORY | | + + + + + + | CO2 | 29 | 24 - 31 mmol/L | [facility] | | | | | | [facility] | | | | | | [facility] | | | | | | C[facility] - | | | | | | LABORATORY | | + + + + + + | Anion Gap | 7 | 3 - 16 mmol/L | [facility] | | | | | | [facility] | | | | | | [facility] | | | | | | CENTER - | | | | | | LABORATORY | | + + + + + + | Glucose | 105 | 70 - 109 mg/dL | [facility] | | | | | | [facility] | | | | | | [facility] | | | | | | CENTER - | | | | | | LABORATORY | | + + + + + + | BUN | 12 | 7 - 18 mg/dL | [facility] | | | | | | [facility] | | | | | | [facility] | | | | | | CENTER - | | | | | | LABORATORY | | + + + + + + | Creatinine | 0.56 (L) | 0.60 - 1.30 | [facility] | | | | | mg/dL | [facility] | | | | | | MEDICAL | | | | | | CENTER - | | | | | | LABORATORY | | + + + + + + | eGFR, | >60Comment: GLOMERULAR | >=60 | [facility] | | | non- | FILTRATION | mL/min/1.73m2 | [facility] | | | [place] | RATE,ESTIMATED | | MEDICAL | | | | mL/min/1.15z3Cttw than | | CENTER - | | [...] + + + + | Calcium | 9.3 | 8.3 - 10.5 | [facility] | | | | | mg/dL | [facility] | | | | | | MEDICAL | | | | | | CENTER - | | | | | | LABORATORY | | + + + + + + | BUN/Creatin | 21.4 | | [facility] | | | ine [...] + + | [facility] | [address] | [place] | [phone] | | [facility] | | [address] | | | - LABORATORY | | | | + + + + + ECG 12 lead (12/14/2015 1:52 PM PDT) + + + + + + | Component | Value | Ref Range | Performed | Pathologist | | | | | At | Signature | + + + + + + | VENTRICULAR | 67 | BPM | [facility] | | | RATE EKG | | | | | + + + + + + | ATRIAL RATE | 67 | BPM | [facility] | | + + + + + + | P-R | 172 | ms | [facility] | | | INTERVAL | | | | | + + + + + + | QRS | 104 | ms | [facility] | | | DURATION | | | | | + + + + + + | Q-T | 440 | ms | [facility] | | | INTERVAL | | | | | + + + + + + | Q-T | 464 | ms | [facility] | | | INTERVAL | | | | | | (CORRECTED) | | | | | + + + + + + | P WAVE AXIS | 37 | degrees | [facility] | | + + + + + + | QRS AXIS | -45 | degrees | [facility] | | + + + + + + | T AXIS | 0 | degrees | [facility] | | + + + + + + | INTERPRETAT | Normal sinus | | [facility] | | | ION TEXT | rhythmIncomplete right | | | | | | bundle branch blockLeft | | | | | | anterior fascicular | | | | | | blocknonspecific | | | | | | inferior and | | | | | | anteroseptal T-wave | | | | | | abnormalitiesAbnormal | | | | | | ECGNo previous ECGs | | | | | | availableConfirmed by | | | | | | URI GUTIERREZ MD ([id number]) | | | | | | on 12/15/2015 7:09:14 AM | | | | + + + + + + + + | Specimen | + + | | + + + + + | Narrative | Performed At | + + + | | | + + + + +---------+ + + | Performing | Address | City/State/Zipcode | Phone Number | | Organization | | | | + +---------+ + + | [facility] | | | | + +---------+ + + documented in this encounter Visit Diagnoses + + | Diagnosis | + + | Gait abnormality - Primary Abnormality of gait | + + | BILLIE (obstructive sleep apnea) Obstructive sleep apnea (adult) (pediatric) | + + | Chronic pain syndrome | + + documented in this encounter Administered Medications + +--------+ +--------+------+------+ | Medication Order | MAR | Action | Dose | Rate | Site | | | Action | Date | | | | + +--------+ +--------+------+------+ | acetaminophen (TYLENOL) tablet | Given | 12/16/19 | 650 mg | | | | 650 mg 650 mg, Oral, EVERY 4 | | 16 5:07 | | | | | HOURS PRN, Pain, Starting Mon | | PM PDT | | | | | 12/14/15 at 2118, Post-op/Phase II | | | | | | + +--------+ +--------+------+------+ +-------+ +--------+---+---+ | Given | 12/16/19 | 650 mg | | | | | 16 12:05 | | | | | | PM PDT | | | | +-------+ +--------+---+---+ | Given | 12/16/19 | 650 mg | | | | | 16 8:03 | | | | | | AM PDT | | | | +-------+ +--------+---+---+ +---+---+ | | | +---+---+ + +-------+ +-------+---+---+ | atorvaSTATin (LIPITOR) tablet | Given | 12/15/19 | 10 mg | | | | 10 mg 10 mg, Oral, NIGHTLY, | | 16 8:09 | | | | | First dose on Mon12/14/15 at 2145, | | PM PDT | | | | | Post-op/Phase II | | | | | | + +-------+ +-------+---+---+ +-------+ +-------+---+---+ | Given | 12/14/19 | 10 mg | | | | | 16 9:50 | | | | | | PM PDT | | | | +-------+ +-------+---+---+ +---+---+ | | | +---+---+ + +-------+ +-------+---+---+ | bisacodyl (DULCOLAX) | Given | 12/16/19 | 10 mg | | | | suppository 10 mg 10 mg, Rectal, | | 16 8:05 | | | | | DAILY PRN, Constipation, | | AM PDT | | | | | Starting Mon12/14/15 at 2118, If | | | | | | | all other bowel medications | | | | | | | ineffective x 24 hours or not | | | | | | | ordered, Post-op/Phase II | | | | | | + +-------+ +-------+---+---+ +---+---+ | | | +---+---+ + +-------+ + +---+---+ | calcium carbonate (TUMS) | Given | 12/16/19 | 1,000 mg | | | | chewable tablet 1,000 mg 1,000 | | 16 12:05 | | | | | mg, Oral, EVERY 2 HOURS PRN, | | PM PDT | | | | | Indigestion, Starting 12/14/15 | | | | | | | at 2118, Post-op/Phase II | | | | | | + +-------+ + +---+---+ +-------+ + +---+---+ | Given | 12/15/19 | 1,000 mg | | | | | 16 2:10 | | | | | | PM PDT | | | | +-------+ + +---+---+ +---+---+ | | | +---+---+ + +---------+ +--------+-------+---+ | ciprofloxacin in dextrose | New Bag | 12/14/19 | 400 mg | 200 | | | (CIPRO) IVPB 400 mg 400 mg, | | 16 3:33 | | mL/hr | | | Intravenous, Administer over 1 | | PM PDT | | | | | Hours, ONCE, Mon12/14/15 at 1400, | | | | | | | For 1 dose, Pre-op, Indications: | | | | | | | Penicillin allergy-Pre op | | | | | | + +---------+ +--------+-------+---+ +---+---+ | | | +---+---+ + +-------+ +-------+---+---+ | cyclobenzaprine (FLEXERIL) | Given | 12/16/19 | 10 mg | | | | tablet 10 mg 10 mg, Oral, EVERY | | 16 5:08 | | | | | 8 HOURS PRN, Muscle spasms, | | PM PDT | | | | | Starting Mon12/14/15 at 2118, Use | | | | | | | if methocarbamol ineffective or | | | | | | | not ordered., Post-op/Phase II | | | | | | + +-------+ +-------+---+---+ +-------+ +-------+---+---+ | Given | 12/15/19 | 10 mg | | | | | 16 9:28 | | | | | | AM PDT | | | | +-------+ +-------+---+---+ +---+---+ | | | +---+---+ + +-------+ +--------+---+---+ | docusate sodium (COLACE) | Given | 12/16/19 | 100 mg | | | | capsule 100 mg 100 mg, Oral, 2 | | 16 8:05 | | | | | TIMES DAILY, First dose on Mon | | AM PDT | | | | | 16 at 2145, First line agent | | | | | | | for constipation, Post-op/Phase | | | | | | | II | | | | | | + +-------+ +--------+---+---+ +-------+ +--------+---+---+ | Given | 12/15/19 | 100 mg | | | | | 16 8:09 | | | | | | PM PDT | | | | +-------+ +--------+---+---+ | Given | 12/15/19 | 100 mg | | | | | 16 9:27 | | | | | | AM PDT | | | | +-------+ +--------+---+---+ +---+---+ | | | +---+---+ + +-------+ +-------+---+---+ | furosemide (LASIX) tablet 40 mg | Given | 12/16/19 | 40 mg | | | | 40 mg, Oral, DAILY, First dose | | 16 8:05 | | | | | on Mon12/15/15 at 0900, | | AM PDT | | | | | Post-op/Phase II | | | | | | + +-------+ +-------+---+---+ +-------+ +-------+---+---+ | Given | 12/15/19 | 40 mg | | | | | 16 9:28 | | | | | | AM PDT | | | | +-------+ +-------+---+---+ +---+---+ | | | +---+---+ + +-------+ +--------+---+---+ | gabapentin (NEURONTIN) capsule | Given | 12/16/19 | 300 mg | | | | 300 mg 300 mg, Oral, 2 TIMES | | 16 8:05 | | | | | DAILY, First dose on Mon12/14/15 | | AM PDT | | | | | at 2145, Post-op/Phase II | | | | | | + +-------+ +--------+---+---+ +-------+ +--------+---+---+ | Given | 12/15/19 | 300 mg | | | | | 16 8:09 | | | | | | PM PDT | | | | +-------+ +--------+---+---+ | Given | 12/15/19 | 300 mg | | | | | 16 9:27 | | | | | | AM PDT | | | | +-------+ +--------+---+---+ +---+---+ | | | +---+---+ + + + +--------+---+---+ | HYDROmorphone (DILAUDID) | Given by | 12/14/19 | 0.2 mg | | | | injection 0.2-0.5 mg 0.2-0.5 mg, | Other | 16 7:48 | | | | | Intravenous, EVERY 5 MIN PRN, | | PM PDT | | | | | Pain, Starting Mon12/14/15 at | | | | | | | 1809, Maximum total dose 2 mg. | | | | | | | PACU IV Narcotic Priority: Only | | | | | | | use fentanyl for immediate | | | | | | | post-op pain (one dose) or | | | | | | | breakthrough pain when any other | | | | | | | IV narcotics ordered have been | | | | | | | ineffective (if ordered). If | | | | | | | both morphine and hydromorphone | | | | | | | are ordered, use morphine first, | | | | | | | and use hydromporphone if | | | | | | | morphine ineffective., | | | | | | | Recovery/Phase I | | | | | | + + + +--------+---+---+ +-------+ +--------+---+---+ | Given | 12/14/19 | 0.2 mg | | | | | 16 7:03 | | | | | | PM PDT | | | | +-------+ +--------+---+---+ | Given | 20 | 0.2 mg | | | | | 16 6:56 | | | | | | PM PDT | | | | +-------+ +--------+---+---+ +---+---+ | | | +---+---+ + +-------+ +------+---+---+ | labetalol (TRANDATE) 5 mg/mL | Given | 12/14/19 | 5 mg | | | | injection 5 mg 5 mg, | | 16 7:09 | | | | | Intravenous, EVERY 5 MIN PRN, For | | PM PDT | | | | | SBP > 180, DBP > 100, Starting | | | | | | | 12/14/15 at 1809, Hold if HR < | | | | | | | 60. Maximum total dose 300mg. | | | | | | | Notify anesthesia if patient | | | | | | | requires more than 50mg., | | | | | | | Recovery/Phase I | | | | | | + +-------+ +------+---+---+ +---+---+ | | | +---+---+ + + + +---+-------+---+ | lactated ringers (LR) infusion | Rate/Dos | 12/14/19 | | 100 | | | at 100 mL/hr, Intravenous, | e Verify | 16 11:00 | | mL/hr | | | CONTINUOUS, Starting 12/14/15 | | PM PDT | | | | | at 1400 | | | | | | + + + +---+-------+---+ +---------+ +---+-------+---+ | New Bag | 12/14/19 | | | | | | 16 6:06 | | | | | | PM PDT | | | | +---------+ +---+-------+---+ | New Bag | 12/14/19 | | 100 | | | | 16 2:30 | | mL/hr | | | | PM PDT | | | | +---------+ +---+-------+---+ +---+---+ | | | +---+---+ + +-------+ +--------+---+---+ | lactulose liquid 30 mL 30 mL, | Given | 12/16/19 | 30 mLs | | | | Oral, DAILY PRN, Constipation, | | 16 8:03 | | | | | Starting 12/14/15 at 2118, If | | AM PDT | | | | | docusate, senna, and polyethylene | | | | | | | glycol ineffective x 24 hours or | | | | | | | not ordered, Post-op/Phase II | | | | | | + +-------+ +--------+---+---+ +---+---+ | | | +---+---+ + +-------+ +--------+---+---+ | levothyroxine (SYNTHROID, | Given | 12/16/19 | 25 mcg | | | | LEVOTHROID) tablet 25 mcg 25 | | 16 6:42 | | | | | mcg, Oral, DAILY BEFORE | | AM PDT | | | | | BREAKFAST, First dose on Mon | | | | | | | 12/15/15 at 0730, Give before | | | | | | | breakfast., Post-op/Phase II | | | | | | + +-------+ +--------+---+---+ +-------+ +--------+---+---+ | Given | 12/15/19 | 25 mcg | | | | | 16 6:23 | | | | | | AM PDT | | | | +-------+ +--------+---+---+ +---+---+ | | | +---+---+ + +-------+ + +---+---+ | methocarbamol (ROBAXIN) tablet | Given | 12/16/19 | 1,500 mg | | | | 750-1,500 mg 750-1,500 mg, Oral, | | 16 8:04 | | | | | EVERY 6 HOURS PRN, Muscle | | AM PDT | | | | | spasms, Starting 12/14/15 at | | | | | | | 2118, Post-op/Phase II | | | | | | + +-------+ + +---+---+ +-------+ + +---+---+ | Given | 12/15/19 | 1,500 mg | | | | | 16 5:38 | | | | | | PM PDT | | | | +-------+ + +---+---+ +---+---+ | | | +---+---+ + +-------+ +-------+---+---+ | oxyCODONE (ROXICODONE) tablet | Given | 12/16/19 | 10 mg | | | | 5-20 mg 5-20 mg, Oral, EVERY 3 | | 16 5:07 | | | | | HOURS PRN, Pain, Starting Mon | | PM PDT | | | | | 12/14/15 at 2118, If ineffective or | | | | | | | not tolerated, contact | | | | | | | prescriber., Post-op/Phase II | | | | | | + +-------+ +-------+---+---+ +-------+ +-------+---+---+ | Given | 12/16/19 | 10 mg | | | | | 16 12:05 | | | | | | PM PDT | | | | +-------+ +-------+---+---+ | Given | 12/16/19 | 10 mg | | | | | 16 8:04 | | | | | | AM PDT | | | | +-------+ +-------+---+---+ +---+---+ | | | +---+---+ + +-------+ +-------+---+---+ | PARoxetine (PAXIL) tablet 30 mg | Given | 12/16/19 | 30 mg | | | | 30 mg, Oral, DAILY, First dose | | 16 8:04 | | | | | on Mon12/15/15 at 0900, | | AM PDT | | | | | Reproductive Risk: Use | | | | | | | appropriate handling | | | | | | | precautions., Post-op/Phase II | | | | | | + +-------+ +-------+---+---+ +-------+ +-------+---+---+ | Given | 12/15/19 | 30 mg | | | | | 16 9:27 | | | | | | AM PDT | | | | +-------+ +-------+---+---+ +---+---+ | | | +---+---+ + +-------+ +--------+---+---+ | potassium chloride (K-DUR) ER | Given | 12/16/19 | 10 mEq | | | | tablet 10 mEq 10 mEq, Oral, | | 16 8:05 | | | | | DAILY, First dose on Mon12/15/15 | | AM PDT | | | | | at 0900, Post-op/Phase II | | | | | | + +-------+ +--------+---+---+ +-------+ +--------+---+---+ | Given | 12/15/19 | 10 mEq | | | | | 16 9:28 | | | | | | AM PDT | | | | +-------+ +--------+---+---+ +---+---+ | | | +---+---+ + +-------+ +--------+---+---+ | senna (SENOKOT) tablet 8.6 mg | Given | 12/16/19 | 8.6 mg | | | | 8.6 mg, Oral, 2 TIMES DAILY PRN, | | 16 8:04 | | | | | Constipation, Starting 12/14/15 | | AM PDT | | | | | at 2118, If docusate ineffective | | | | | | | or not ordered, Post-op/Phase II | | | | | | + +-------+ +--------+---+---+ +-------+ +--------+---+---+ | Given | 12/15/19 | 8.6 mg | | | | | 16 9:27 | | | | | | AM PDT | | | | +-------+ +--------+---+---+ +---+---+ | | | +---+---+ + +---------+ +-----+-------+---+ | vancomycin 1 g in sodium | New Bag | 12/14/19 | 1 g | 260 | | | chloride 0.9% 250 mL IVPB 1 g, | | 16 2:40 | | mL/hr | | | Intravenous, Administer over 60 | | PM PDT | | | | | Minutes, ONCE, Mon12/14/15 at | | | | | | | 1400, For 1 dose, Keep in | | | | | | | refrigerator., Pre-op, | | | | | | | Indications: Prophylaxis for pre | | | | | | | op | | | | | | + +---------+ +-----+-------+---+ +---+---+ | | | +---+---+ + +---------+ +-----+-------+---+ | vancomycin 1 g in sodium | New Bag | 12/15/19 | 1 g | 260 | | | chloride 0.9% 250 mL IVPB 1 g, | | 16 2:29 | | mL/hr | | | Intravenous, Administer over 60 | | AM PDT | | | | | Minutes, EVERY 12 HOURS INTERVAL, | | | | | | | First dose on Mon12/15/15 at | | | | | | | 0300, For 1 dose, Start 12 hours | | | | | | | after previous dose. Last dose | | | | | | | to be given within 24 hours of | | | | | | | surgery end time. Keep in | | | | | | | refrigerator., Post-op/Phase II, | | | | | | | Indications: Surgical Prophylaxis | | | | | | + +---------+ +-----+-------+---+ +---+---+ | | | +---+---+ documented in this encounter
--- OUTSIDE RECORDS SUMMARY | ~2020-05-20 | XMS | Encounter Summary ---
Demographics + + + | Address | [address] | | | [place] [address] | + + + | Home Phone | | + + + | Preferred Language | Unknown | + + + | Marital Status | | + + + | Scientologist Affiliation | 1028 | + + + | Race | White | + + + | Ethnic Group | Not or | + + + Author + + + | Author | [facility] | | | and [place] | + + + | Organization | [facility] | | | [...] Team Providers + +------+ + | Care Phone Operator Name | Role | Phone | + +------+ + | Ethan Solomon MD | PCP | | + +------+ + Encounter Details +--------+ + + + + | Date | Type | Department | Care Team | Description | +--------+ + + + + | 01/24/ | Orders Only | [facility] | Sarkis Garcia DNP | | | 2016 | | VASCULAR SURGERY | [address] | | | | | [address]TR[address] | [place], [place] | | | | | [address] | [address] | | | | | [place], [place] | | | | | | [address] | | | | | | [phone] | | | +--------+ + + + [...] + +--------+ + + + | VAS ANKLE BRACHIAL | Routin | 01/24/2017 | | Results for this | | INDEX RESTING | e | 3:20 PM | | procedure are in the | | | | PDT | | results section. | + +--------+ + + + documented in this encounter Results VAS Ankle Brachial Index Resting (01/24/2017 3:20 PM PDT) + + | Specimen | + + | | + + + + + | Impressions | Performed At | + + + | 1. Mildly diminished right ABIs, as above. 2. Moderately | | | diminished left ABIs, as above. 3. Nondiagnostic TBI's. | | | | | + + + + + + | Narrative | Performed At | + + + | [facility] 01/24/2017 3:20 PM HISTORY: 82 | | | years. Female. Bilateral lower extremity swelling. History of left | | | popliteal arterial angioplasty and January 2013. TECHNIQUE: | | | Bilateral lower extremity arterial Doppler examination performed with | | | color Doppler and spectral Doppler waveform analysis. Resting | | | ankle-brachial indices and toe-brachial indices were calculated. | | | COMPARISON: Lower semidigital subtraction angiogram dated January 23, | | | 2012. FINDINGS: ANKLE-BRACHIAL INDICES: Right brachial | | | segmental pressure: 147 mmHg Right posterior tibial segmental | | | pressure: 135 mmHg Right dorsalis pedis segmental pressure: 142 mmHg | | | Right toe pressure: Could not obtain. Right AICHA (posterior tibial): | | | 0.89 Right AICHA (dorsalis pedis): 0.93 Right TBI: Could not | | | obtain. Left brachial segmental pressure: 152 mmHg Left posterior | | | tibial segmental pressure: 96 mmHg Left dorsalis pedis segmental | | | pressure: 75 mmHg Left toe pressure: 135 mmHg Left AICHA (posterior | | | tibial): 0.63 Left AICHA (dorsalis pedis): 0.49 Left TBI: 0.89 | | | INTERPRETATION OF AICHA: >1.30 Noncompressible 0.91 -- | | | 1.30 Normal 0.41 -- 0.90 Mild to moderate peripheral arterial | | | disease 0.00 -- 0.40 Severe peripheral arterial disease | | | Interpretation of TBI: Greater than 0.7 Normal 0.5-0.7 Mild | | | 0.35-0.5 Moderate Less than 0.35 and toe pressure of 40 mm | | | Moderate to Severe Less than 0.35 and toe pressure less than 30 mm | | | Severe RIGHT LEG WAVEFORMS: Posterior tibial artery: Triphasic. | | | Dorsalis pedis artery: Triphasic. LEFT LEG WAVEFORMS: Posterior | | | tibial artery: Monophasic. Dorsalis pedis artery: Monophasic. TOE | | | WAVEFORMS: Right 1st: Normal. Left 1st: Severely dampened | | + + + + + | Procedure Note | + + | Aleksander Torres Conversion - 05/02/2019 6:50 PM PDT [facility]01/24/2017 | | 3:20 PM HISTORY:82 years. Female. Bilateral lower extremity swelling. History of left | | popliteal arterial angioplasty and January 2013. TECHNIQUE:Bilateral lower extremity | | arterial Doppler examination performed with color Doppler and spectral Doppler waveform | | analysis. Resting ankle-brachial indices and toe-brachial indices were calculated. | | COMPARISON:Lower semidigital subtraction angiogram dated January 23, 2013. FINDINGS: | | ANKLE-BRACHIAL INDICES:Right brachial segmental pressure: 147 mmHgRight posterior tibial | | segmental pressure: 135 mmHgRight dorsalis pedis segmental pressure: 142 mmHgRight toe | | pressure: Could not obtain.Right AICHA (posterior tibial): 0.89Right AICHA (dorsalis | | pedis): 0.93Right TBI: Could not obtain. Left brachial segmental pressure: 152 mmHgLeft | | posterior tibial segmental pressure: 96 mmHgLeft dorsalis pedis segmental pressure: 75 | | mmHgLeft toe pressure: 135 mmHgLeft AICHA (posterior tibial): 0.63Left AICHA (dorsalis | | pedis): 0.49Left TBI: 0.89 INTERPRETATION OF AICHA:>1.30 Noncompressible0.91 -- | | 1.30 Normal0.41 -- 0.90 Mild to moderate peripheral arterial disease0.00 -- 0.40 | | Severe peripheral arterial disease Interpretation of TBI:Greater than 0.7 | | Normal0.5-0.7 Mild0.35-0.5 ModerateLess than 0.35 and toe pressure of 40 mm | | Moderate to SevereLess than 0.35 and toe pressure less than 30 mm Severe RIGHT LEG | | WAVEFORMS:Posterior tibial artery: Triphasic.Dorsalis pedis artery: Triphasic. LEFT LEG | | WAVEFORMS:Posterior tibial artery: Monophasic.Dorsalis pedis artery: Monophasic. TOE | | WAVEFORMS:Right 1st: Normal.Left 1st: Severely dampened IMPRESSION: 1. Mildly | | diminished right ABIs, as above. 2. Moderately diminished left ABIs, as above. 3. | | Nondiagnostic TBI's. | |Right TBI: Could not obtain. | | | |Left brachial segmental pressure: 152 mmHg | |Left posterior tibial segmental pressure: 96 mmHg | |Left dorsalis pedis segmental pressure: 75 mmHg | |Left toe pressure: 135 mmHg | |Left AICHA (posterior tibial): 0.63 | |Left AICHA (dorsalis pedis): 0.49 | |Left TBI: 0.89 | | | |INTERPRETATION OF AICHA: | |>1.30 Noncompressible | |0.91 -- 1.30 Normal | |0.41 -- 0.90 Mild to moderate peripheral arterial disease | |0.00 -- 0.40 Severe peripheral arterial disease | | | |Interpretation of TBI: | |Greater than 0.7 Normal | |0.5-0.7 Mild | |0.35-0.5 Moderate | |Less than 0.35 and toe pressure of 40 mm Moderate to Severe | |Less than 0.35 and toe pressure less than 30 mm Severe | | | |RIGHT LEG WAVEFORMS: | |Posterior tibial artery: Triphasic. | |Dorsalis pedis artery: Triphasic. | | | |LEFT LEG WAVEFORMS: | |Posterior tibial artery: Monophasic. | |Dorsalis pedis artery: Monophasic. | | | |TOE WAVEFORMS: | |Right 1st: Normal. | |Left 1st: Severely dampened | | | |IMPRESSION: | |1. Mildly diminished right ABIs, as above. | | | |2. Moderately diminished left ABIs, as above. | | | |3. Nondiagnostic TBI's. | | | | | + + documented in this encounter Visit Diagnoses Not on filedocumented in this encounter"
--- OUTSIDE RECORDS SUMMARY | ~2020-05-20 | XMS | Encounter Summary ---
Demographics + + + | Address | [address] | | | [place] [address] | + + + | Home Phone [...] Team Providers + +------+ + | Care Bull Fiddle Player Name | Role | Phone | + +------+ + | Ethan Solomon MD | PCP | | + +------+ + Reason for Visit Diagnostic/Screening (Routine) +--------+--------+ + + + + | Status | Reason | Specialty | Diagnoses / | Referred By | Referred To | | | | | Procedures | Contact | Contact | +--------+--------+ + + + + | Closed | | | Diagnoses | Provider, | [facility] | | | | | Other | Historical, | [facility] | | | | | spondylosis | [facility] [place] | [facility] [address] | | | | | with | [address] | [place] | | | | | myelopathy, | [place] | [place], | | | | | cervical | [address] | [place] | | | | | region | | [address] | | | | | [phone] | | Phone: | | | | | Procedures | | [phone] | | | | | MRI Cervical | | Fax: | | | | | Spine wo | | [phone] | | | | | Contrast | | | +--------+--------+ + + + + Encounter Details +--------+ + + + + | Date | Type | Department | Care Team | Description | +--------+ + + + + | 08/17/ | Imaging | [facility] | Provider, | | | 2017 | Exam | [facility] | Historical, [facility] | | | | | IMAGING [address] | [address] | | | | | [address] | [place] [address] | | | | | [place] [address] | | | | | | [phone] | | | +--------+ + + + [...] + +--------+ + + + | MRI CERVICAL SPINE | Routin | 08/08/2017 | | Results for this | | WO CONTRAST | e | 1:10 PM | | procedure are in the | | | | PST | | results section. | + +--------+ + + + documented in this encounter Results MRI Cervical Spine wo Contrast (08/08/2017 1:10 PM PST) + + | Specimen | + + | | + + + + + | Narrative | Performed At | + + + | External films | [facility] | | for comparison only - no result from [place]. | | + + + + +---------+ + + | Performing | Address | City/State/Zipcode | Phone Number | | Organization | | | | + +---------+ + + | [facility] | | | | + +---------+ + + documented in this encounter Visit Diagnoses Not on filedocumented in this encounter"
--- OUTSIDE RECORDS SUMMARY | ~2020-05-20 | XMS | Encounter Summary ---
Demographics + + + | Address | [address] | | | [place] [address] | + + + | Home Phone | | + + + | Preferred Language | Unknown | + + + | Marital Status | | + + + | Mosque Affiliation | 1028 | + + + | Race | White | + + + | Ethnic Group | Not or | + + + Author + + + | Author | [facility] | | | and [place] | + + + | Organization | [facility] | | | and [...] Team Providers + +------+ + | Care Veneer Taping Machine Operator Name | Role | Phone | + +------+ + | Paul Hogan MD | PCP | | + +------+ + Reason for Visit +--------+--------+ + | Reason | Onset | Comments | | | Date | | +--------+--------+ + | Other | 05/11/ | | | | 2014 | | +--------+--------+ + Encounter Details +--------+ + + + + | Date | Type | Department | Care Team | Description | +--------+ + + + + | 05/11/ | Telephone | [facility] | Umer Garcia MD | Other | | 2015 | | NEUROSURGERY [address] | | | | | [address] | [place] [address] | | | | | [place] | [phone] | | | | | [address] | | | | | | [phone] | | | +--------+ + + + [...] this encounter Miscellaneous Notes Telephone Encounter - Aric Wilcox PA - 05/11/2015 1:39 PM PDTShe needs to be car eful regarding preventing falls. It sounds as if she is ok. She should keep her appointmen t as scheduled el ephone Encounter - Fariba Wilcox RN - 05/11/2015 10:15 AM PDTPatient states "I was adonis g my pants down as I was walking into the bathroom. Tripped over my pants, fell and hit my a rm on the counter." She state that she does feel that she injured herself. She does have yamilka e bruising on her arm. Patient states she did not fall to the floor. She states that she is "fine, but my daughter is making me tell you I fell." Patient also had questions about juarez ges. I reminded her that she does not need to have outer bandages at this time and can gentl y remove the steri strips after 14 days post surgery. Patient reminded of follow up appointm ent 05/28 @ 1200 with xrays prior. elephone Encounter - Em Lange - 05/11/2015 9:48 AM PDTGoldie called carrillo chavez to know if she was scheduled for an appointment this week, I let her know that i didn 't see anything on the schedule. She also has questions about her bandages, please advise. documented in this encounter Plan of Treatment Not on filedocumented as of this encounter Visit Diagnoses Not on filedocumented in this encounter
--- OUTSIDE RECORDS SUMMARY | ~2020-05-20 | XMS | Encounter Summary ---
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 Dressin-->independent Eatin-->independent Communication: 0-->understands/communicates without difficulty Swallowin-->swallows foods and liquids without difficulty Role/Relationships: Significant Relationships: child (adult son & dgtr) Living Environment/Accessibility: Lives With: child(ambrocio), adult Living Arrangements: house Number Of Stairs To Enter Home: 2 Number Of Stairs Within Home: 0 Stair Railings At Home: present on left side Living Environment Comment: Walk-in shower Patient s Goals: Go home tomorrow hopefully. Criteria for Skilled Therapeutic interventions Met:: yes OT Visit Summary: Pt seen post-operatively following C5-7 ACDF, no collar. Reviewed & pos landy cervical precautions, pt did not attend Spine Class and had some difficulty recalling pr ecautions. Supine-sit w/ CGA, verbal cuing for technique. Donned underwear slowly but effe ctively. CGA stand & ambulated to toilet. Ambulated w/o AD & hand-held assist ~50 ft. Returned to bed, sit-supine w/ SBA. Supine-sit again w/ verbal cuing for technique. Posit ioned for comfort. Call light in place. Occupational Therapy will follow Mellisa Carrizales (1-2 addt'l OT visits) Occupational Therapy Discharge Recommendations are: Recommended discharge disposition: home with family/caregiver, ADL assist, safety assist, can be alone for short periods Post discharge occupational therapy recommendation: no further OT Equipment Recommendations: shower chair Planned Interventions:Planned Therapy Interventions: ADL retraining, balance training, bed mobility training, transfer training Patient Status/Goals Reflects last filed data of patient status; may be from multiple contributors. FIM: FIM Transfers Toilet: 5 Toilet Transfer Evidence: 5 Safety Supervision, 5 Verbal Cues, 6 Extra Time FIM Self Care Dressing - Lower Body: 5 Dressing Lower Score Evidence: 6 Extra Time, 5 Verbal Cues, 5 Safety Supervision Toiletin Toileting Score Evidence: 5 Verbal Cues, 5 Safety Supervision, 6 Extra Time Additional Goals OT Status 1: New OT Goal 1: Pt will be mod I w/ ADLs & functional mobility; SBA for shower transfer. OT Status 2: New OT Goal 2: 100% verbal recall of cervical precautions. Assessment: Occupational therapy orders received and acknowledged. Objective impairments i nclude impaired ADLs & functional mobility; decreased safety awareness. These impairments ar e causing functional limitations with patient s inability to safely & independently comple te ADLs/fxl mobility. Complexities contributing to the need for skilled therapy include mild STM; new C5-7 ACDF. Prognosis: good good, to achieve stated therapy goals Patient and/or family has indicated understanding of treatment needs and actively participa landy in the creation of this plan for care. Today's Treatment Start Time: 1320 Stop time: 1354 Time Calculation: 34 minutes Missed Treatment Time: minutes Total Treatment Time: 34 minutes TimedTreatment Code Minutes: 19 minutes Objective: Pt seen for OT evaluation. Please see above for addt'l info on status & outcom e. Pt also participated in ADLs & functional mobility. Education: OT POC; cervical precautions; safety Treatment Provided: ADL training; functional mobility; safety awarneess Assessment: Pt seen post-operatively & is doing quite well. Some difficulty in recall of c ervical precautions. Some difficulty in sequencing a supine-sit log-roll transfer, not able to get up in her normal fashion. Would benefit from addt'l 1-2 OT visits to confirm needs, ensure safety, and review cervical precautions. Plan for next treatment: 1P,JM.Review precautions; safety; U/LB dressing,walk-in shower tr aury Electronically signed by: Juana Caraballo OT, 04/30/2015 14:19 lan of Care - Amanuel estevez, Xavi Eden RN - 04/30/2015 12:00 PM PDTPt arrived from PACU, denies pain or nausea. Pt wa s able to walk from gurney to bed. Pt denies numbness, muscle strength 4/5 on all extremitie s. p Note - Romario Garcia MD - 04/30/2015 10:15 AM PDTFormatting of this note might be different from the hannaha l. Operative Note Mellisa Bryant Sjurset 80 y.o. female 1935 [id number] Proc. Date 04/30/2015 Preop Dx Cervical spondylosis with myelopathy Cervical radiculopathy Cervical degenerative disc disease Cervical foraminal stenosis Cervcal stenosis Postop Dx same Procedure 1. Anterior cervical discectomy and fusion C5-6, C6-7 2. Anterior cervical plating C5-7 using Zevo 3. Anterior structural allograft bone C5-6, C6-7 4. Microsurgical technique with use of operating microscope Anesthesia , Dr. Vicente Surgeon Surgeon(s) and Role: * Umer Garcia MD - Primary * GABRIEL Zhang - Assi sting EBL 34 Findings Severe osteophytes and DDD. Good bone. No brace required. Complications none Specimens * No specimens in log * Drains Drain/Device Site 04/30/15 0941 #1 Left: anterior cervical spine collapsible closed dev ice (Active) OPERATIVE DETAILS: After obtaining consent, the patient was taken to the operating room and placed under gener al anesthesia. She was then positioned in a supine position on the Harjit axis table with t he patient's face, neck, chest and extremities positioned and padded appropriately. She was placed in 10 lbs of holter traction. Fluoroscopy was then used to localize the level of C5- 7 on lateral fluoroscopy and a right sided incision was planned in an anterior skin crease. Her neck was prepped and draped in standard fashion and a timeout was performed. All member s of the surgical team agreed with the timeout. The anterior neck was then incised opening a 1 inch incision in the right anterior neck wit h a number 10 blade knife. Subcutaneous tissues were made hemostatic with Bovie cautery and dissection was taken down to and through the platysma. The platysma was then undermined us ing Metzenbaum scissors. Sharp dissection was then performed medial to the sternocleidomast oid that allowed an approach to the prevertebral space. The prevertebral fascia was opened with scissors and Kitner pushers. The fluoroscopy was then used to identify the C5-6 level. Bovie cautery was then used to taken down the longus coli from C5 to C7 bilaterally. The Koros retractor was then inserted and the microscope was brought in for microsurgical dissec tion. The discs were then removed in similar fashion at C5-6 and C6-7. The discs were first inci sed and then curetted. The high speed drill was then used to remove cervical osteophytes an teriorly, prepare the endplates for arthrodesis, and then remove the posterior osteophytes. The PLL was then taken down centrally with a microhook and 1 mm Kerrison. A 2 mm Kerrison was then used to take down the ligamentum more laterally until a Dandy hook could easily be passed out the foramen. This was performed without event from C5-C7 noting severe osteophyt es causing canal narrowing and foraminal root compresion. Curettes were then used to remove any remaining cartilage off the endplates. The trials were then used. A 5 mm height spacer was determined to be the appropriate heigh t at both segments. The structural allograft prior to insertion was filled with [place] bon e. The structural allograft bone was then tamped into place at C5-6 and C6-7. Anterior cervical plating was then performed by holding a [address] in [address] over th e segments with holding pins. Fluoroscopy was used to confirm its appropriate positioning a nd then automatic pilot mechanic holes were made in the C5-C7 vertebral bodies. 15 mm variable screws were the n placed at C5, C6, and C7 using rescue screws at the bottom segment. Good purchase was obt ained throughout. The locking mechanism was then engaged at each segment. Bipolar cautery and flowseal was then used for hemostasis and the wound was copiously irrig ated. A drain was placed in the prevertebral space and tunneled out the skin. The platysma was then closed with 3-0 vicryl sutures followed by closure of the skin with a layer of Str atafix sutures. Skin glue was used for final skin closure. The wound was dressed with Ster istrips, and the drain was secured with Steristrips and a tegaderm. All counts were reported as correct. The patient tolerated the procedure and was transferr ed to the recovery room in stable condition. Electronically signed by: Umer Garcia MD 04/30/2015 10:13 [facility] rief Op Note - Jacob Garcia MD - 04/30/2015 10:13 AM PDTFormatting of this note might be different from the origin al. Brief Operative Note Mellisa Bryant Sjurset 80 y.o. female 1935 [id number] Proc. Date 04/30/2015 Preop Dx Cervical spondylosis with myelopathy Cervical radiculopathy Cervical degenerative disc disease Cervical foraminal stenosis Cervcal stenosis Postop Dx same Procedure 1. Anterior cervical discectomy and fusion C5-6, C6-7 2. Anterior cervical plating C5-7 using Zevo 3. Anterior structural allograft bone C5-6, C6-7 4. Microsurgical technique with use of operating microscope Anesthesia General, Dr. Vicente Surgeon Surgeon(s) and Role: * Umer Garcia MD - Primary * GABRIEL Zhang - Assi sting EBL 34 Findings Severe osteophytes and DDD. Good bone. No brace required. Complications none Specimens * No specimens in log * Drains Drain/Device Site 04/30/15 0941 #1 Left: anterior cervical spine collapsible closed dev ice (Active) Electronically signed by: Umer Garcia MD [facility]30[facility]2015 10[facility] documented in this encou nter Plan of Treatment Not on filedocumented as of this encounter Procedures + +--------+ + + + | Procedure Name | Priori | Date/Time | Associated Diagnosis | Comments | | | ty | | | | + +--------+ + + + | XR CERVICAL SPINE 2 | STAT | 04/30/2015 | | Results for this | | OR 3 VIEWS | | 11:25 AM | | procedure are in the | | | | PDT | | results section. | + +--------+ + + + | FL ROB STATS NO | Routin | 04/30/2015 | | Results for this | | CHARGE | e | 9:43 AM | | procedure are in the | | | | PDT | | results section. | + +--------+ + + + | FUSION CERVICAL | | 04/30/2015 | Cervical | | | ANTERIOR W/ PLATING | | 7:47 AM | spondylosis without | | | | | PDT | myelopathy | | + +--------+ + + + +---+--------+ | | Case | | | Notes | | | | | | Origin | | | al | | | Schedu | | | ler | | | Commen | | | ts/Not | | | es | | | Sent | | | Over | | | 04/24/ | | | 2014 @ | | | | | | 1302:C | | | -ARM, | | | DRILL, | | | | | | MICROS | | | COPE, | | | ZEVO, | | | GRAFTO | | | N, | | | CORNER | | | STONE, | | | OSI | | | FLAT | | | TOPEST | | | IMATED | | | TIME: | | | 1.5 | | | HOURS | +---+--------+ | | | | | Specia | | | l | | | Needs | | | Ben | | | | | | (Medtr | | | onic) | | | - ZEVO | +---+--------+ documented in this encounter Results XR CERVICAL SPINE 2 OR 3 VIEWS (04/30/2015 11:25 AM PDT) + + | Specimen | + + | | + + + + + | Narrative | Performed At | + + + | THREE VIEWS CERVICAL SPINE 04/30/2015 11:25 AM CLINICAL HISTORY: | [facility] | | post op cervical surgery COMPARISON: Cervical MRI March 11 | | | FINDINGS: Anterior plate and screw and interbody fusion hardware now | | | extends from C5 through C7, and appears to be intact and well seated. | | | Minimal anterolisthesis persists at C7-T1. Cervical vertebral | | | height and alignment are otherwise maintained, without evident | | | fracture or new subluxation. There is multilevel facet hypertrophy. | | | A surgical drain projects anterior to the operated levels. | | | Imaged skull base, soft tissue structures and lung apices are | | | otherwise unremarkable. IMPRESSION - 1. SATISFACTORY | | | APPEARANCE STATUS POST ACDF EXTENDING FROM C5 THROUGH C7 WITH SIMILAR | | | MILD ANTEROLISTHESIS AT C7-T1. Dictated and Signed by: Shawn | | | MD Serg Electronically signed: 04/30/2015 2:01 PM | | + + + + + | Procedure Note | + + | Biran, Rad Results In - 04/30/2015 2:04 PM PDT THREE VIEWS CERVICAL SPINE 04/30/2015 | | 11:25 AMCLINICAL HISTORY: post op cervical surgeryCOMPARISON: Cervical MRI March | | 1FINDINGS: Anterior plate and screw and interbody fusion hardware now extendsfrom C5 | | through C7, and appears to be intact and well seated. Minimalanterolisthesis persists | | at C7-T1. Cervical vertebral height and alignment areotherwise maintained, without | | evident fracture or new subluxation. There ismultilevel facet hypertrophy. A surgical | | drain projects anterior to theoperated levels. Imaged skull base, soft tissue | | structures and lung apices areotherwise unremarkable.IMPRESSION -1. SATISFACTORY | | APPEARANCE STATUS POST ACDF EXTENDING FROM C5 THROUGH C7 WITHSIMILAR MILD | | ANTEROLISTHESIS AT C7-T1.Dictated and Signed by: Shawn Ulrich MD Electronically signed: | | 04/30/2015 2:01 PM | |operated levels. Imaged skull base, soft tissue structures and lung apices are | |otherwise unremarkable. | | | |IMPRESSION - | |1. SATISFACTORY APPEARANCE STATUS POST ACDF EXTENDING FROM C5 THROUGH C7 WITH | |SIMILAR MILD ANTEROLISTHESIS AT C7-T1. | | | |Dictated and Signed by: Shawn Ulrich MD | | Electronically signed: 04/30/2015 2:01 PM | + + + +---------+ + + | Performing | Address | City/State/Zipcode | Phone Number | | Organization | | | | + +---------+ + + | [facility] | | | | + +---------+ + + [place] C-Arm Stats No Charge (04/30/2015 9:43 AM PDT) + + | Specimen | [...] | | | + +--------+ +-------+------+------+ | atorvaSTATin (LIPITOR) tablet | Given | 04/30/20 | 10 mg | | | | 10 mg 10 mg, Oral, NIGHTLY, | | 15 8:54 | | | | | First dose on Mon04/30/15 at | | PM PDT | | | | | 2100, Post-op/Phase II | | | | | | + +--------+ +-------+------+------+ +---+---+ | | | +---+---+ + +-------+ + +---+---+ | calcium carbonate (TUMS) | Given | 04/30/20 | 1,000 mg | | | | chewable tablet 1,000 mg 1,000 | | 15 7:40 | | | | | mg, Oral, EVERY 2 HOURS PRN, | | PM PDT | | | | | Indigestion, Starting Mon04/30/15 | | | | | | | at 1142, Post-op/Phase II | | | | | | + +-------+ + +---+---+ +---+---+ | | | +---+---+ + +-------+ +-------+---+---+ | cyclobenzaprine (FLEXERIL) | Given | 04/30/20 | 10 mg | | | | tablet 10 mg 10 mg, Oral, | | 15 8:54 | | | | | NIGHTLY, First dose on Dee | | PM PDT | | | | | 04/30/15 at 2100, Post-op/Phase II | | | | | | + +-------+ +-------+---+---+ +---+---+ | | | +---+---+ + +-------+ +--------+---+---+ | docusate sodium (COLACE) | Given | 04/30/20 | 100 mg | | | | capsule 100 mg 100 mg, Oral, 2 | | 15 8:53 | | | | | TIMES DAILY PRN, Constipation, | | PM PDT | | | | | Starting Dee 04/30/15 at 1142, | | | | | | | First line agent for | | | | | | | constipation, Post-op/Phase II | | | | | | + +-------+ +--------+---+---+ +---+---+ | | | +---+---+ + +-------+ +--------+---+---+ | gabapentin (NEURONTIN) capsule | Given | 05/01/20 | 300 mg | | | | 300 mg 300 mg, Oral, 2 TIMES | | 15 8:06 | | | | | DAILY, First dose on [facility] 04/30/15 | | AM PDT | | | | | at 1200, Post-op/Phase II | | | | | | + +-------+ +--------+---+---+ +-------+ +--------+---+---+ | Given | 04/30/20 | 300 mg | | | | | 15 8:54 | | | | | | PM PDT | | | | +-------+ +--------+---+---+ | Given | 04/30/20 | 300 mg | | | | | 15 1:04 | | | | | | PM PDT | | | | +-------+ +--------+---+---+ +---+---+ | | | +---+---+ + +-------+ + +---+---+ | HYDROcodone-acetaminophen | Given | 05/01/20 | 1 tablet | | | | (NORCO) 10-325 mg per tablet 1-2 | | 15 8:21 | | | | | tablet 1-2 tablet, Oral, EVERY 4 | | AM PDT | | | | | HOURS PRN, Pain, Starting Dee | | | | | | | 04/30/15 at 1142, If ineffective | | | | | | | or not tolerated use Oxycodone if | | | | | | | ordered., Post-op/Phase II | | | | | | + +-------+ + +---+---+ +-------+ + +---+---+ | Given | 04/30/20 | 1 tablet | | | | | 15 8:54 | | | | | | PM PDT | | | | +-------+ + +---+---+ | Given | 04/30/20 | 1 tablet | | | | | 15 7:40 | | | | | | PM PDT | | | | +-------+ + +---+---+ +---+---+ | | | +---+---+ + +-------+ +------+---+---+ | labetalol (TRANDATE) 5 mg/mL | Given | 04/30/20 | 5 mg | | | | injection 5 mg 5 mg, | | 15 10:13 | | | | | Intravenous, EVERY 10 MIN PRN, | | AM PDT | | | | | For SBP > 170, DBP > 90, Starting | | | | | | | Dee 04/30/15 at 0946, Hold if HR | | | | | | | < 60. Maximum total dose 40mg. | | | | | | | Notify anesthesia if patient | | | | | | | requires more than 40mg., | | | | | | | Recovery/Phase I | | | | | | + +-------+ +------+---+---+ +---+---+ | | | +---+---+ + +---------+ +---+-------+---+ | lactated ringers (LR) infusion | New Bag | 04/30/20 | | 100 | | | at 100 mL/hr, Intravenous, | | 15 10:48 | | mL/hr | | | CONTINUOUS, Starting Dee 04/30/15 | | AM PDT | | | | | at 0700, Start with large bore | | | | | | | (18-20) gauge., Pre-op | | | | | | + +---------+ +---+-------+---+ +---+---+ | | | +---+---+ + +---------+ +---+ +---+ | lactated ringers (LR) infusion | New Bag | 04/30/20 | | 50 mL/hr | | | at 10-100 mL/hr, Intravenous, | | 15 7:06 | | | | | CONTINUOUS, Starting Dee 04/30/15 | | AM PDT | | | | | at 0700, TKO., Pre-op | | | | | | + +---------+ +---+ +---+ +---+---+ | | | +---+---+ + +-------+ +--------+---+---+ | levothyroxine (SYNTHROID, | Given | 05/01/20 | 25 mcg | | | | LEVOTHROID) tablet 25 mcg 25 | | 15 7:03 | | | | | mcg, Oral, DAILY BEFORE | | AM PDT | | | | | BREAKFAST, First dose on Dee | | | | | | | 04/30/15 at 1200, Give before | | | | | | | breakfast., Post-op/Phase II | | | | | | + +-------+ +--------+---+---+ +---+---+ | | | +---+---+ + +-------+ +-------+---+---+ | lisinopril (PRINIVIL, ZESTRIL) | Given | 05/01/20 | 20 mg | | | | tablet 20 mg 20 mg, Oral, 2 | | 15 8:07 | | | | | TIMES DAILY, First dose on Dee | | AM PDT | | | | | 04/30/15 at 1200, Post-op/Phase II | | | | | | + +-------+ +-------+---+---+ +-------+ +-------+---+---+ | Given | 04/30/20 | 20 mg | | | | | 15 8:54 | | | | | | PM PDT | | | | +-------+ +-------+---+---+ | Given | 04/30/20 | 20 mg | | | | | 15 12:50 | | | | | | PM PDT | | | | +-------+ +-------+---+---+ +---+---+ | | | +---+---+ + +---------+ +--------+--------+---+ | methocarbamol (ROBAXIN) 750 mg | New Bag | 05/01/20 | 750 mg | 143.3 | | | in sodium chloride 0.9% 100 mL | | 15 5:41 | | mL/hr | | | IVPB 750 mg, Intravenous, | | AM PDT | | | | | Administer over 45 Minutes, EVERY | | | | | | | 8 HOURS (3 times per day), First | | | | | | | dose on [facility] 04/30/15 at 1400, For | | | | | | | 4 doses, Post-op/Phase II | | | | | | + +---------+ +--------+--------+---+ +---------+ +--------+--------+---+ | New Bag | 04/30/20 | 750 mg | 143.3 | | | | 15 10:48 | | mL/hr | | | | PM PDT | | | | +---------+ +--------+--------+---+ | New Bag | 04/30/20 | 750 mg | 143.3 | | | | 15 2:54 | | mL/hr | | | | PM PDT | | | | +---------+ +--------+--------+---+ +---+---+ | | | +---+---+ + +-------+ +-------+---+---+ | pantoprazole (PROTONIX) DR | Given | 05/01/20 | 40 mg | | | | tablet 40 mg 40 mg, Oral, DAILY | | 15 7:03 | | | | | BEFORE BREAKFAST, First dose on | | AM PDT | | | | | Dee 04/30/15 at 1215, Therapeutic | | | | | | | Interchange for omeprazole. Do | | | | | | | not cut or crush., | | | | | | + +-------+ +-------+---+---+ +-------+ +-------+---+---+ | Given | 04/30/20 | 40 mg | | | | | 15 12:49 | | | | | | PM PDT | | | | +-------+ +-------+---+---+ +---+---+ | | | +---+---+ + +-------+ +-------+---+---+ | PARoxetine (PAXIL) tablet 30 mg | Given | 05/01/20 | 30 mg | | | | 30 mg, Oral, DAILY, First dose | | 15 8:07 | | | | | on Dee 04/30/15 at 1200, | | AM PDT | | | | | Reproductive Risk: Use | | | | | | | appropriate handling | | | | | | | precautions., Post-op/Phase II | | | | | | + +-------+ +-------+---+---+ +-------+ +-------+---+---+ | Given | 04/30/20 | 30 mg | | | | | 15 12:49 | | | | | | PM PDT | | | | +-------+ +-------+---+---+ +---+---+ | | | +---+---+ + +-------+ +--------+---+---+ | senna (SENOKOT) tablet 8.6 mg | Given | 04/30/20 | 8.6 mg | | | | 8.6 mg, Oral, 2 TIMES DAILY PRN, | | 15 8:53 | | | | | Constipation, Starting Dee | | PM PDT | | | | | 04/30/15 at 1142, If docusate | | | | | | | ineffective or not ordered, | | | | | | | Post-op/Phase II | | | | | | + +-------+ +--------+---+---+ +---+---+ | | | +---+---+ + +---------+ +---+-------+---+ | sodium chloride 0.9% (NS) | New Bag | 04/30/20 | | 100 | | | infusion at 100 mL/hr, | | 15 1:06 | | mL/hr | | | Intravenous, CONTINUOUS, Starting | | PM PDT | | | | | Dee 04/30/15 at 1200, | | | | | | | Post-op/Phase II | | | | | | + +---------+ +---+-------+---+ +---+---+ | | | +---+---+ + +---------+ +-----+-------+---+ | vancomycin 1 g in sodium | New Bag | 04/30/20 | 1 g | 260 | | | chloride 0.9% 250 mL IVPB 1 g, | | 15 7:10 | | mL/hr | | | Intravenous, Administer over 60 | | AM PDT | | | | | Minutes, Prior to Incision, | | | | | | | Starting [facility] 04/30/15 at 0631, For | | | | | | | 1 dose, Administer within 1 hour | | | | | | | of surgical incision. Keep in | | | | | | | refrigerator., Pre-op | | | | | | + +---------+ +-----+-------+---+ +---+---+ | | | +---+---+ + +---------+ +-----+-------+---+ | vancomycin 1 g in sodium | New Bag | 04/30/20 | 1 g | 260 | | | chloride 0.9% 250 mL IVPB 1 g, | | 15 7:16 | | mL/hr | | | Intravenous, Administer over 60 | | PM PDT | | | | | Minutes, EVERY 12 HOURS INTERVAL, | | | | | | | First dose on [facility] 04/30/15 at | | | | | | | 1900, For 1 dose, Start 12 hours | | | | | | | after previous dose. Last dose | | | | | | | to be given within 24 hours of | | | | | | | surgery end time. Keep in | | | | | | | refrigerator., Post-op/Phase II | | | | | | + +---------+ +-----+-------+---+ +---+---+ | | | +---+---+ documented in this encounter
--- OUTSIDE RECORDS SUMMARY | ~2020-05-20 | XMS | Encounter Summary ---
Demographics + + + | Address | [address] | | | [place] [address] | + + + | Home Phone | | + + + | Preferred Language | Unknown | + + + | Marital Status | | + + + | Jainism Affiliation | [id number] | + + + | Race | White | + + + | Ethnic Group | Not or | + + + Author + + + | Author | [facility] | | | and [place] | + + + | Organization | [facility] | | | [...] Team Providers + +------+ + | Care Cco Name | Role | Phone | + +------+ + PCP | Unavailable | + +------+ + Encounter Details +--------+ + + + + | Date | Type | Department | Care Team | Description | +--------+ + + + + | 05/24/ | Abstract | [facility] | | | 2011 | | Conversion Location | [facility] | | | | | [address] | | | | | | [place], [place] | | | | | | [address] | | | | | | [phone] | | | +--------+ + + + [...] + + + | Blood Pressure | 142/96 | 04/25/2011 12:00 AM | | | | | PDT | | + + + + + | Pulse | - | - | | + [...] + + + + | Weight | 77.1 kg (170 lb) | 05/18/2011 12:00 AM | | | | | PDT | | + + + + + | Height | 165.1 cm (5' 5") | 04/25/2011 12:00 AM | | | | | PDT | | + + + + + | Body Mass Index | 28.29 | 04/25/2011 12:00 AM | | | | | PDT | | + + + + + documented in this encounter Plan of Treatment Not on filedocumented as of this encounter Visit Diagnoses Not on filedocumented in this encounter
--- OUTSIDE RECORDS SUMMARY | ~2020-05-20 | XMS | Encounter Summary ---
Demographics + + + | Address | [address] | | | [place] [address] | + + + | Home Phone | | + + + | Preferred Language | Unknown | + + + | Marital Status | | + + + | Yazidism Affiliation | 1028 | + + + | Race | White | + + + | Ethnic Group | Not or | + + + Author + + + | Author | [facility] | | | and [place] | + + + | Organization | [facility] | | | [...] Team Providers + +------+ + | Care Office Engineer Name | Role | Phone | + +------+ + | Ethan Solomon MD | PCP | | + +------+ + Encounter Details +--------+ + + + + | Date | Type | Department | Care Team | Description | +--------+ + + + + | 04/25/ | Orders Only | [facility] | Sarkis Garcia DNP | | | 2016 | | VASCULAR SURGERY | [address] | | | | | ULTRAS[address] | [place], [place] | | | | | [address] | [address] | | | | | [place], [place] | | | | | | [address] | | | | | | [phone] | | | +--------+ + + + [...] + +--------+ + + + | VAS VENOUS REFLUX | Routin | 04/25/2017 | | Results for this | | BILATERAL | e | 2:09 PM | | procedure are in the | | | | PDT | | results section. | + +--------+ + + + documented in this encounter Results VAS Venous Reflux Bilateral (04/25/2017 2:09 PM PDT) + + | Specimen | + + | | + + + + + | Impressions | Performed At | + + + | No evidence of lower extremity deep vein thrombosis in either leg. | | | RIGHT LE. Reflux noted within the greater saphenous vein in the | | | mid thigh. Reflux also seen in the superficial femoral vein and | | | popliteal vein. LEFT LE. Reflux noted in the distal calf | | | within the greater saphenous vein. Patient appears to be post left | | | greater saphenous vein harvest procedure. There appear to be hematomas | | | or seromas along the incision. | | + + + + + + | Narrative | Performed At | + + + | MELLISA CARRIZALES US LOWER EXTREMITY REFLUX/INSUFFICIENCY BILAT | | | 04/25/2017 2:09 PM HISTORY: 82 years. Female. Leg swelling. . | | | Venous insufficiency. TECHNIQUE: Bilateral lower extremity | | | venous exam using grayscale, color Doppler and pulsed wave spectral | | | Doppler techniques. COMPARISON: None FINDINGS: RIGHT LEG: | | | Normal compressibility, augmentation of flow, and Doppler flow evident | | | within the deep venous system. No evidence of deep venous thrombosis. | | | Greater saphenous vein: Saphenofemoral junction: Diameter: 5.4 mm. | | | No reflux. Proximal thigh: Diameter: 3.2 mm. Middle thigh: | | | Diameter: 3.2 mm. >1s reflux. Distal thigh: Diameter: 3.3 mm. No | | | reflux. Knee: Diameter: 3.2 mm. No reflux. Proximal calf: | | | Diameter: 2.4 mm. No reflux. Mid calf: Diameter: 2.3 mm. No | | | reflux. Distal calf: Diameter: 2.5 mm. No reflux. Lesser saphenous | | | vein: Proximal calf: Diameter: 2.2 mm. No reflux. Mid calf: | | | Diameter: 2.1 mm. No reflux. Distal calf: Diameter: 1.3 mm. No | | | reflux. Deep venous reflux: Common femoral vein: No reflux. | | | Superficial femoral vein: Reflux more than 0.5 seconds seen in the | | | proximal and midportion. Reflux more than 1 second seen in the distal | | | portion. Popliteal vein: >0.5s reflux. Posterior tibial and peroneal | | | veins: No reflux. LEFT LEG: Normal compressibility, augmentation | | | of flow, and Doppler flow evident within the deep venous system. No | | | evidence of deep venous thrombosis. Greater saphenous vein: Patient | | | is post left greater saphenous vein harvest. Saphenofemoral junction: | | | Absent Proximal thigh: Absent Middle thigh: Diameter: 3.4 mm. No | | | reflux. Distal thigh: Diameter: 2.9 mm. No reflux. Knee: Diameter: | | | 2.6 mm. No reflux. Distal calf: Diameter: 1.9 mm. >0.5s reflux. | | | Lesser saphenous vein: Proximal calf: Diameter: 2.7 mm. No reflux. | | | Mid calf: Diameter: 2.1 mm. No reflux. Distal calf: Diameter: 1.4 | | | mm. No reflux. Deep venous reflux: Common femoral vein: No | | | reflux. Superficial femoral vein: No reflux. Popliteal vein: No | | | reflux. Posterior tibial and peroneal veins: No reflux. There | | | appear to be hematomas or seromas noted along the left medial thigh | | | incision site measuring 2.7 cm x 4.4 cm x 2.5 cm and 1.5 cm x 2.3 cm x | | | 1.7 cm. Please refer to the call center coordinator's notes for full details. | | | | | + + + + + | Procedure Note | + + | Brian, Rad Conversion - 05/02/2019 6:50 PM PDT MELLISA HERNANDEZ LOWER EXTREMITY | | REFLUX/INSUFFICIENCY BILAT04/25/2017 2:09 PM HISTORY:82 years. Female. Leg swelling.. | | Venous insufficiency. TECHNIQUE:Bilateral lower extremity venous exam using grayscale, | | color Doppler and pulsed wave spectral Doppler techniques. COMPARISON:None | | FINDINGS:RIGHT LEG:Normal compressibility, augmentation of flow, and Doppler flow | | evident within the deep venous system. No evidence of deep venous thrombosis.Greater | | saphenous vein:Saphenofemoral junction: Diameter: 5.4 mm. No reflux.Proximal thigh: | | Diameter: 3.2 mm.Middle thigh: Diameter: 3.2 mm. >1s reflux.Distal thigh: Diameter: 3.3 | | mm. No reflux.Knee: Diameter: 3.2 mm. No reflux.Proximal calf: Diameter: 2.4 mm. No | | reflux.Mid calf: Diameter: 2.3 mm. No reflux.Distal calf: Diameter: 2.5 mm. No | | reflux.Lesser saphenous vein:Proximal calf: Diameter: 2.2 mm. No reflux.Mid calf: | | Diameter: 2.1 mm. No reflux.Distal calf: Diameter: 1.3 mm. No reflux.Deep venous | | reflux:Common femoral vein: No reflux.Superficial femoral vein: Reflux more than 0.5 | | seconds seen in the proximal and midportion. Reflux more than 1 second seen in the | | distal portion.Popliteal vein: >0.5s reflux.Posterior tibial and peroneal veins: No | | reflux. LEFT LEG:Normal compressibility, augmentation of flow, and Doppler flow evident | | within the deep venous system. No evidence of deep venous thrombosis.Greater saphenous | | vein: Patient is post left greater saphenous vein harvest.Saphenofemoral junction: | | AbsentProximal thigh: AbsentMiddle thigh: Diameter: 3.4 mm. No reflux.Distal thigh: | | Diameter: 2.9 mm. No reflux.Knee: Diameter: 2.6 mm. No reflux.Distal calf: Diameter: | | 1.9 mm. >0.5s reflux.Lesser saphenous vein:Proximal calf: Diameter: 2.7 mm. No | | reflux.Mid calf: Diameter: 2.1 mm. No reflux.Distal calf: Diameter: 1.4 mm. No | | reflux.Deep venous reflux:Common femoral vein: No reflux.Superficial femoral vein: No | | reflux.Popliteal vein: No reflux.Posterior tibial and peroneal veins: No reflux. There | | appear to be hematomas or seromas noted along the left medial thigh incision site | | measuring 2.7 cm x 4.4 cm x 2.5 cm and 1.5 cm x 2.3 cm x 1.7 cm. Please refer to the | | call center coordinator's notes for full details. IMPRESSION: No evidence of lower extremity deep | | vein thrombosis in either leg.RIGHT LE. Reflux noted within the greater saphenous | | vein in the mid thigh. Reflux also seen in the superficial femoral vein and popliteal | | vein.LEFT LE. Reflux noted in the distal calf within the greater saphenous vein. | | Patient appears to be post left greater saphenous vein harvest procedure. There appear | | to be hematomas or seromas along the incision. | |Popliteal vein: >0.5s reflux. | |Posterior tibial and peroneal veins: No reflux. | | | |LEFT LEG: | |Normal compressibility, augmentation of flow, and Doppler flow evident within the deep veno us system. No evidence of deep venous thrombosis. | |Greater saphenous vein: Patient is post left greater saphenous vein harvest. | |Saphenofemoral junction: Absent | |Proximal thigh: Absent | |Middle thigh: Diameter: 3.4 mm. No reflux. | |Distal thigh: Diameter: 2.9 mm. No reflux. | |Knee: Diameter: 2.6 mm. No reflux. | |Distal calf: Diameter: 1.9 mm. >0.5s reflux. | |Lesser saphenous vein: | |Proximal calf: Diameter: 2.7 mm. No reflux. | |Mid calf: Diameter: 2.1 mm. No reflux. | |Distal calf: Diameter: 1.4 mm. No reflux. | |Deep venous reflux: | |Common femoral vein: No reflux. | |Superficial femoral vein: No reflux. | |Popliteal vein: No reflux. | |Posterior tibial and peroneal veins: No reflux. | | | |There appear to be hematomas or seromas noted along the left medial thigh incision site brianne suring 2.7 cm x 4.4 cm x 2.5 cm and 1.5 cm x 2.3 cm x 1.7 cm. Please refer to the sonographe r's notes for full details. | | | | | |IMPRESSION: | |No evidence of lower extremity deep vein thrombosis in either leg. | |RIGHT LEG: | |1. Reflux noted within the greater saphenous vein in the mid thigh. Reflux also seen in th e superficial femoral vein and popliteal vein. | |LEFT LEG: | |1. Reflux noted in the distal calf within the greater saphenous vein. Patient appears to b e post left greater saphenous vein harvest procedure. There appear to be hematomas or seroma s along the incision. | | | | | + + documented in this encounter Visit Diagnoses Not on filedocumented in this encounter"
--- OUTSIDE RECORDS SUMMARY | ~2020-05-20 | XMS | Encounter Summary ---
Demographics + + + | Address | [address] | | | [place] [address] | + + + | Home Phone | | + + + | Preferred Language | Unknown | + + + | Marital Status | | + + + | Hinduism Affiliation | 1028 | + + + | Race | White | + + + | Ethnic Group | Not or | + + + Author + + + | Author | [facility] | | | and [place] | + + + | Organization | [facility] | | [...] Team Providers + +------+ + | Care Breaker Machine Operator Name | Role | Phone | + +------+ + | Paul Hogan MD | PCP | | + +------+ + Reason for Visit +--------+--------+ + | Reason | Onset | Comments | | | Date | | +--------+--------+ + | Other | 03/10/ | Medication for MRI | | | 2014 | | +--------+--------+ + Encounter Details +--------+ + + + + | Date | Type | Department | Care Team | Description | +--------+ + + + + | 03/10/ | Telephone | [facility] | Brenden Aric | Other (Medication | | 2014 | | NEUROSURGERY [address] | [address] | for MRI) | | | | [address] | [address] [place], [place] | | | | | [place], [place] | [id number] | | | | | [address] | | | | | | [phone] | | | +--------+ + + + [...] encounter Miscellaneous Notes Telephone Encounter - Mulu Zaldivar Master of Arts - 03/10/2015 2:15 PM PDTCalled in Lorazepam 0.5mg #2 tablets for patient to the pharmacy we have on file. Left a voicemail for the pharmacy.....Called patient to inform her that her medication is at the pharmacy..Raphael Zaldivar docu mented in this encounter Plan of Treatment Not on filedocumented as of this encounter Visit Diagnoses Not on filedocumented in this encounter"
--- OUTSIDE RECORDS SUMMARY | ~2020-05-20 | XMS | Encounter Summary ---
Demographics + + + | Address | [address] | | | [place] [address] | + + + | Home Phone | | + + + | Preferred Language | Unknown | + + + | Marital Status | | + + + | Denominational Affiliation | 1028 | + + + | Race | White | + + + | Ethnic Group | Not or | + + + Author + + + | Author | [facility] | | | and [place] | + + + | Organization | [facility] | | [...] Team Providers + +------+ + | Care Golf Ball Trimmer Name | Role | Phone | + +------+ + | Paul Hogan MD | PCP | | + +------+ + Reason for Visit +--------+--------+ + | Reason | Onset | Comments | | | Date | | +--------+--------+ + | Other | 01/18/ | | | | 2016 | | +--------+--------+ + Encounter Details +--------+ + + + + | Date | Type | Department | Care Team | Description | +--------+ + + + + | 01/18/ | Telephone | [facility] [place] | Aric Wilcox | Other | | 2016 | | NEUROSURGERY [address] | [address] | | | | | [address] | [address] [place], [place] | | | | | [place], [place] | [phone] | | | | | [address] | | | | | | [phone] | | | +--------+ + + + [...] Notes Telephone Encounter - Shirley Shell - 01/19/2016 3:02 PM Aaron asks if she is rel eased to drive. She was seen today, and given a refill of narcotic pain medication. Advised per postop guidelines that she can drive if she is not taking pain medication and m uscle relaxants. She verbalized understanding. Please advise further. documented in this encounter Plan of Treatment Not on filedocumented as of this encounter Visit Diagnoses Not on filedocumented in this encounter"
--- OUTSIDE RECORDS SUMMARY | ~2020-05-20 | XMS | Encounter Summary ---
Demographics + + + | Address | [address] | | | [place] [address] | + + + | Home Phone | | + + + | Preferred Language | Unknown | + + + | Marital Status | | + + + | Episcopal Affiliation | 1028 | + + + [...] Team Providers + +------+ + | Care Gluer And Slicer Hand Name | Role | Phone | + +------+ + | Ethan Solomon MD | PCP | | + +------+ + Reason for Visit +--------+--------+ + | Reason | Onset | Comments | | | Date | | +--------+--------+ + | Pain | 06/14/ | | | | 2017 | | +--------+--------+ + Encounter Details +--------+ + + + + | Date | Type | Department | Care Team | Description | +--------+ + + + + | 06/14/ | Telephone | [facility] [place] | Umer Garcia MD | Pain | | 2018 | | NEUROSURGERY [address] | [address] | | | | | [address] | [place] [address] | | | | | [place] | [phone] | | | | | [address] | | | | | | [phone] | | | +--------+ + + + [...] this encounter Miscellaneous Notes Telephone Encounter - Nancy Ochoa Cert MA - 06/14/2018 12:49 PM PDTI called and relayed Darnell's message to Mellisa. She said that she has an upcoming visit with her PCP and will dis cuss her symptoms with him at that time. If they feel she needs to see us, she will call dionicio ordoñez. NANCY OCHOA elephone Encounte r - Aric Wilcox PA-C - 06/14/2018 11:48 AM KERONDestiney can follow up in our office or h er PCP to evaluate her symptoms and make recommendations. elephone Encounter - Nancy Ochoa Cert MA - 1 10:56 AM Aaron called today requesting a follow-up in the office for neck and back pain. She said that she feels like her pain continues to get worse and now is at the p oint that she can't walk very far due to the pain. If she is up and about, with her back br ben on, by 2pm she is "zonked out" and can't do much. She was not able to describe the type of pain she has. She said that she is unsteady on her feet but refuses to use a case or wa lker because "she just doesn't want to" so she just doesn't walk very far. She does have a "medical guardian" that she wears incase she falls so she can get help. She says her knees are week, she has bursitis in her left hip and a "broken bone" in her foot that can't be fix ed so this may be contributing to her falls. She takes Gabapentin and Tylenol for pain. Mary suggs doesn't see a pain management clinic anymore. She said she walked out of her appointment last after the provider "accused her of using morphine" when she hadn't been. She is S/P L4-S1 Fusion on 12/14/15 Last MRI C spine 08/08/17; C Spine XR 09/13/17 Last Lumbar imaging (XR) 10/20/16 Please advise. do cumented in this encounter Plan of Treatment Not on filedocumented as of this encounter Visit Diagnoses Not on filedocumented in this encounter
--- OUTSIDE RECORDS SUMMARY | ~2020-05-20 | XMS | Encounter Summary ---
Demographics + + + | Address | [address] | | | [place] [address] | + + + | Home Phone | | + + + | Preferred Language | Unknown | + + + | Marital Status | | + + + | Presybeterian Affiliation | 1028 | + + + | Race | White | + + + | Ethnic Group | Not or | + + + Author + + + | Author | [facility] | | | and [place] | + + + | Organization | [facility] | | [...] Team Providers + +------+ + | Care Geospatial Technician Name | Role | Phone | [...] | | | | | | | PA | | | | | | | [...] Description | +--------+---------+ + + + | 04/30/ | Surgery | [facility] | Umer Garcia MD | C5-6, C6-7 Anterior | | 2014 | | MED CTR OR INTRA OP | [address] | Cervical Discectomy | | | | [address] | [place] [address] | Fusion | | | | [place] | [phone] | | | | | [address] | | | | | | [phone] | | | +--------+---------+ + + + [...] + + + | Blood Pressure | 168/66 | 04/30/2015 6:58 AM | | | | | PDT | | + + + + + | Pulse | 78 | 04/30/2015 6:58 AM | | | | | PDT | | + + + + + | Temperature | 36.2 C (97.2 F) | 04/30/2015 6:58 AM | | | | | PDT | | + + + + + | Respiratory Rate | 18 | 04/30/2015 6:58 AM | | | | | PDT | | + + + + + | Oxygen Saturation | 96% | 04/30/2015 6:58 AM | | | [...] might be differen t from the original. [facility] NEUROSURGERY DISCHARGE SUMMARY Patient Name: Mellisa Maldonadot Patient : 1935 PCP: Paul Hogan Date [...] Care Everywhere.CERVICAL FUSION , DISCHARGE INSTRUCTIONS FOR ([facility])CERVICAL DISK SURGERY, DISCHARGE INSTRUCTIONS FOR ([facility])documented in this encounter Medications at Time of [...] Umer Garcia MD - 04/30/2015 7:59 [facility] AND PHYSICAL UPDATE Pt. Name/Age/: Mellisa Carrizales 80 y.o. 1935 Date of admission: 04/30/2015 [...] by: Umer Garcia MD 04/30/2015 7:59 [facility] mer Garcia MD - 04/24 12:07 PM PDT Umer Garcia MD [address] [facility], [address] [place] [address] FAX: NEUROSURGERY HISTORY AND PHYSICAL EXAMINATION CHIEF [...] have been gradually worsening. [facility] also [...] has no apparent deficits with short or jail memory. MOTOR EXAM: (5 IS NORMAL) * Indicates pain limited MUSCLE/ MOVEMENT: RIGHT LEFT Deltoids 5 5 Biceps 5 5 Triceps 5 5 Wrist Flexion 5 5 Wrist Extension 5 5 Median Intrinsics 5 5 Ulnar Intrinsics 5 5 Sales Developer Strength 5 5 Hip Flexion 5 5 [...] about her discharge plans. She lives in [place] alone. She will hav e her children stay and help as needed. She did decline home health. She is very independent and will not have any discharge needs. She uses [facility] in [place] for her medications. Her son will transport [...] by: Trisha Alarcon PTA, 05/01/2015 12:02 lan [facility] Juana Paul OT - 05/01/2015 9:38 AM PDTOccupational Therapy [...] No further OT. Electronically signed by: Juana Caraballo OT, 05/01/2015 9:38 lan of Care - Justin laurent, Jessica Adams RN - 05/01/2015 8:40 AM PDTProblem: General [...] needed a liquid wash with bread texture. MESSAGE AND DELIVERY SERVICE PRICER rec dysphagia adv anced textures, and educated Pt on diet texture modification should during the healing proce ss. Pt verbalized understanding. No further MESSAGE AND DELIVERY SERVICE PRICER services needed at this time. Pt is DC'd/ Speech language pathology will follow Mellisa Carrizales until discharge from therapy or discharged from the hospital. Speech Language Pathology Discharge Recommendations are: Recommended discharge disposition: home with family/caregiver Post discharge speech language pathology recommendation: no further Speech Therapy Planned Interventions: patient/caregiver education, diet texture modification MESSAGE AND DELIVERY SERVICE PRICER Diagnosis: Mild pharyngeal dysphagia At bedside, signs [...] return to baseline. Electronically signed by: Arabella Ramos SPEECH PATHO, 04/30/2015 18:21 Start Time: 1225 [...] Mobility Skill: Rolling/Turning, PT Eval Level Of [place]: supervision/set-up Bed Mobility Skill: Sit To Supine, Rehab Eval Level Of [place]: Sit/Supine: supervision/set-up Bed Mobility Skill: Supine To Sit, Rehab Eval Level Of [place]: Supine/Sit: supervision/set-up Transfers Transfer Skill: Bed To Chair/Chair To Bed, Rehab Eval Level Of [place]: Bed To Chair: supervision/set-up Goal Transfers Bed to Chair/Chair to Bed Bed to Chair/Chair to Bed STG Status: New STG Transfers Bed to Chair/Chair to Bed: independent Transfer Skill: Sit To Stand, Rehab Eval Level Of [place]: Sit/Stand: supervision/set-up Goal Transfers Sit to Stand Sit to Stand STG Status: New STG Transfers Sit to Stand : independent Gait Gait Skills, PT Eval Level Of [place]: Gait: supervision/set-up Gait Distance (feet): 200 Goal Gait Gait STG Status: New STG Gait: independent STG Gait Distance (feet): 200 Stairs Stair, Performance Number Of Stairs: 4 Stair Railings: present on right side Level Of [place]: contact guard assist (75% patient effort) Goal [...] PT, 04/30/2015 14:46 lan of Care - Juana Lyn OT - 04/30/2015 2:17 PM PDTFormatting of [...] in place. Occupational Therapy will follow Mellisa Carrziales (1-2 addt'l OT visits) Occupational Therapy Discharge [...] treatment: 1P,JM.Review precautions; safety; U/LB dressing,walk-in shower vivek jeffers Electronically signed by: Juana Caraballo OT, 04/30/2015 14:19 lan of Care - Xavi Calle RN - 04/30/2015 12:00 PM PDTPt arrived from PACU, denies pain or nausea. Pt wa s able to walk from gurney to bed. Pt denies numbness, muscle strength 4/5 on all extremitie s. p Note - Romario Garcia MD - 04/30/2015 10:15 AM PDTFormatting of this note might be different from the gudelia saldana. Operative Note Mellisa Bryant Sjurset 80 y.o. female 1935 [id number] Proc. Date 04/30/2015 Preop Dx Cervical spondylosis [...] allograft prior to insertion was filled with [place] bon e. The structural allograft bone was then tamped into place at C5-6 and C6-7. Anterior cervical plating was then performed by holding a 37 mm Zevo plate in place over th e segments with holding pins. Fluoroscopy was used to confirm its appropriate positioning a nd then airplane pilot photogrammetry holes were made in the C5-C7 vertebral [...] signed by: Umer Garcia MD 04/30/2015 10:13 [facility] rief Op Note - Jacob Garcia MD - 04/30/2015 10:13 AM PDTFormatting of this note might be different from the origin al. Brief Operative Note Mellisa Bryant Sjurset 80 y.o. female 1935 [id number] Proc. Date 04/30/2015 Preop Dx Cervical spondylosis [...] signed by: Umer Garcia MD 04/30/2015 10:13 [facility] documented in this encou nter Plan [...] AT C7-T1. Dictated and Signed by: Shawn Carmona | | MD Serg Electronically signed: 04/30/2015 2:01 PM | | + + + + + | Procedure Note | + + | Brian, Rad Results In - 04/30/2015 2:04 PM [...] Diagnosis | + + | Cervical spondylosis without myelopathy | + + documented in this encounter Administered Medications + +--------+ +---------+------+ + | Medication Order | MAR | Action | Dose | Rate | Site | | | Action | Date | | | | + +--------+ +---------+------+ + | bacitracin in NS solution PRN, | Given | 04/30/20 | 50,000 | | Surgical | | Starting Dee 04/30/15 at 0837, | | 15 8:37 | Units | | Site | | Intra-op | | AM PDT | | | | + +--------+ +---------+------+ + +---+---+ | | | +---+---+ documented in this encounter
--- OUTSIDE RECORDS SUMMARY | ~2020-05-20 | XMS | Encounter Summary ---
Demographics + + + | Address | [address] | | | [place] [address] | + + + | Home Phone [...] + + + | Author | [facility] | | | and [place] | + + + | Organization | [facility] | | | [...] Team Providers + +------+ + | Care Wedger Name | Role | Phone | + +------+ + | Paul Hogan MD | PCP | | + +------+ + Reason for Visit + +--------+ + | Reason | Onset | Comments | | | Date | | + +--------+ + | Imaging Only | 03/09/ | | | | 2014 | | + +--------+ + Encounter Details +--------+ + + + + | Date | Type | Department | Care Team | Description | +--------+ + + + + | 03/09/ | Telephone | [facility] | Umer Garcia MD | Imaging Only | | 2014 | | NEUROSURGERY [address] | [address] | | | | | [address] | [place] [address] | | | | | [place] | [phone] | | | | | [address] | | | | | | [phone] | | | +--------+ + + + [...] Notes Telephone Encounter - Shirley Shell - 04/09/2015 11:47 AM PDTScheduled 04/24/15 to dis cuss MRI results. Mellisa updated at this time. elephone Encounter - Shirley Shell - 03/31/2015 8:19 AM PDTIm aging is available for review on i-site. Requested after patient's last office visit. William bakere. elephone En counter - Mulu Zaldivar, Master of Arts - 03/10/2015 8:21 AM PDTCalled patient to in form her that her Ativan 0.5mg #2 was called into the pharmacy we have on file. Patient mireille balized understanding Electronically signed by Mulu Zaldivar Master of Arts at 2014 8:23 AM PDTTelephone Encounter - Aric Wilcox PA - 03/09/2015 7:21 PM PDTAti van approved elep sandra Encounter - Mulu Zaldivar, Master of Arts - 03/09/2015 3:11 PM PDTPatient craig d today requesting a claustrophobia medication for her upcoming MRI at [facility] Please approve/deny 15 3:13 PM PDTTelephone Encounter - Chela Alba - 03/09/2015 3:00 PM PDTGoldmeir called back regarding scheduling her MRI. She would like to have this completed at [facility] and will cassi l them to schedule. Order faxed today. She would like to request a medication for claustroph obia. elephone Encounter - Mulu Zaldivar, Master of Arts - 03/09/2015 11:05 AM PDTCalled patient to schedule h er for her MRI Cervical w/o contrast. Not able to leave a message at either numbers we have on file. Will try again at a later time. documented in this encounter Plan of Treatment Not on filedocumented as of this encounter Visit Diagnoses Not on filedocumented in this encounter"
--- OUTSIDE RECORDS SUMMARY | ~2020-05-20 | XMS | Encounter Summary ---
Demographics + + + | Address | [address] | | | [place] [address] | + + + | Home Phone [...] Team Providers + +------+ + | Care Sales And Marketing Analyst Name | Role | Phone | + [...] | | | | | | | [place] | | | | | | | [...] + + | 12/13/ | Hospital | [facility] | Umer Garcia MD | | | 2016 | Encounter | MED CTR XRAY [address] | [address] | | | | | [address] | [place] [address] | | | | | [place] [address] | [phone] | | | | | [phone] | | | +--------+ + + + [...]
--- OUTSIDE RECORDS SUMMARY | ~2020-05-20 | XMS | Encounter Summary ---
Demographics + + + | Address | [address] | | | [place] [address] | + + + | Home Phone | | + + + | Preferred Language | Unknown | + + + | Marital Status | | + + + | Orthodoxy Affiliation | 1028 | + + + | Race | White | + + + | Ethnic Group | Not or | + + + Author + + + | Author | [facility] | | | and [place] | + + + | Organization | [facility] | | | and [...] Team Providers + +------+ + | Care Lithographic Press Feeder Name | Role | Phone | + +------+ + | Ethan Solomon MD | PCP | | + +------+ + Encounter Details +--------+ + + + + | Date | Type | Department | Care Team | Description | +--------+ + + + + | 08/15/ | Orders Only | [facility] | Sarkis Garcia DNP | | | 2017 | | VASCULAR SURGERY | [address] | | | | | [address]TR[address] | [place], [place] | | | | | [address] | [address] | | | | | [place], [place] | | | | | | [address] | | | | | | [phone] | | | +--------+ + + + [...] | US ARTERIAL UPPER | Routin | 08/15/2018 | | Results for this | | EXTREMITY UNILATERAL | e | 3:23 PM | | procedure are in the | | | | PST | | results section. | + +--------+ + + + documented in this encounter Results US Arterial Upper Extremity Unilateral (08/15/2018 3:23 PM PST) + + | Specimen | + + | | + + + + + | Impressions | Performed At | + + + | 1. Widely patent bypass graft. The previously noted area of | | | increased velocity is no longer seen. | | + + + + + + | Narrative | Performed At | + + + | MELLISA CARRIZALES US UPPER EXTREMITY ARTERIAL UNILATERAL 08/15/2018 | | | 3:23 PM HISTORY: 83 years. Female. Left axillary artery | | | injury. Ligation. Thrombectomy. TECHNIQUE: Imaging was performed | | | using a linear array transducer. Oconnell scale, color flow, and power | | | Doppler techniques utilized. COMPARISON: Ultrasound examination | | | on 11/14/2017. FINDINGS: Inflow: PSV: 60 (cm/s). Flow: | | | Triphasic. Proximal anastomosis: PSV: 95 (cm/s). Flow: Triphasic. | | | Proximal graft: 126 (cm/s). Flow: Triphasic. Mid graft: PSV: 66 | | | (cm/s). Flow: Triphasic. Distal graft: PSV: 68 (cm/s). Flow: | | | Triphasic. Distal anastomosis: PSV: 121 (cm/s). Flow: Triphasic. | | | Outflow: PSV: 203 cm/s. Flow: Triphasic. | | + + + + --------+ | Procedure Note | + --------+ | Brian, Rad Conversion - 05/02/2019 3:44 PM PDT MELLISA Ruddy HERNANDEZ UPPER EXTREMITY | | ARTERIAL [id number]/5/2018 3:23 PM HISTORY:83 years. Female. Left axillary artery | | injury. Ligation. Thrombectomy. TECHNIQUE:Imaging was performed using a linear array | | transducer. Oconnell scale, color flow, and power Doppler techniques utilized. | | COMPARISON:Ultrasound examination on 11/14/2017. FINDINGS: Inflow: PSV: 60 (cm/s). Flow: | | Triphasic.Proximal anastomosis: PSV: 95 (cm/s). Flow: Triphasic.Proximal graft: 126 | | (cm/s). Flow: Triphasic.Mid graft: PSV: 66 (cm/s). Flow: Triphasic.Distal graft: PSV: 68 | | (cm/s). Flow: Triphasic.Distal anastomosis: PSV: 121 (cm/s). Flow: Triphasic.Outflow: | | PSV: 203 cm/s. Flow: Triphasic. IMPRESSION: 1. Widely patent bypass graft. The | | previously noted area of increased velocity is no longer seen. | |Ultrasound examination on 11/14/2017. | | | |FINDINGS: | | | |Inflow: PSV: 60 (cm/s). Flow: Triphasic. | |Proximal anastomosis: PSV: 95 (cm/s). Flow: Triphasic. | |Proximal graft: 126 (cm/s). Flow: Triphasic. | |Mid graft: PSV: 66 (cm/s). Flow: Triphasic. | |Distal graft: PSV: 68 (cm/s). Flow: Triphasic. | |Distal anastomosis: PSV: 121 (cm/s). Flow: Triphasic. | |Outflow: PSV: 203 cm/s. Flow: Triphasic. | | | |IMPRESSION: | |1. Widely patent bypass graft. The previously noted area of increased velocity is no longe r seen. | | | | | + --------+ documented in this encounter Visit Diagnoses Not on filedocumented in this encounter"
--- OUTSIDE RECORDS SUMMARY | ~2020-05-20 | XMS | Encounter Summary ---
Demographics + + + | Address | [address] | | | [place] [address] | + + + | Home Phone | | + + + | Preferred Language | Unknown | + + + | Marital Status | | + + + | Nondenominational Affiliation | 1028 | + + + | Race | White | + + + | Ethnic Group | Not or | + + + Author + + + | Author | [facility] | | | and [place] | + + + | Organization | [facility] | | | [...] Team Providers + +------+ + | Care Tank Builder Name | Role | Phone | + +------+ + | Paul Hogan MD | PCP | | + +------+ + Reason for Visit + +--------+ + | Reason | Onset | Comments | | | Date | | + +--------+ + | Medication Refill | 02/24/ | | | | 2016 | | + +--------+ + Encounter Details +--------+--------+ + + + | Date | Type | Department | Care Team | Description | +--------+--------+ + + + | 02/24/ | Refill | [facility] | Umer Garcia MD | Medication Refill | | 2016 | | NEUROSURGERY [address] | [address] | | | | | [address] | [place] [address] | | | | | [place] | [phone] | | | | | [address] | | | | | | [phone] | | | +--------+--------+ + + + [...] this encounter Miscellaneous Notes Telephone Encounter - Vladimir Gómez - 02/26/2016 12:18 PM PDTPatient called office back. R elayed message. elephone Enc ounter - Thais Stephenson RN - 02/25/2016 4:52 PM PDTCalled Mellisa to inform he r that her medication has been approved and has been sent via certified mail. Patient unavailable. Left message requesting a call back. Sent to patient's address on file. Article Number: [id number] elephone Encounter - Thais Stephenson RN - 02/24 1:50 PM PDTS/p L4-5 Lateral Anterior Interbody Fusion w/ L5-S1 Transforaminal Lumbar Interbody Fusion on 12/14/15 Medication Refill Request Medication requested: oxyCODONE (ROXICODONE) 5 mg tablet Do you have a pain contract with any providers: No Are you receiving pain medication prescriptions from any other providers: Patient called Dr Julio Hogan's office and she was informed that he could give her Tylenon #3. Patient does not h ave it. Current intake: 2 tablets Q4H or as needed. Date of last refill: 01/19/16 # of tabs left/or when will patient run out of this medication: 0 Where is pain located? Type of pain (constant, intermittent, sharp, dull)? : Pain is locat ed in lower back radiating to hips bilaterally. Joint pain in hips. Patient would like pain meds for PT. Send in the mail or call in to preferred pharmacy? Sent via certified mail. [address] [place] [address] Please Approve or Deny documente d in this encounter Plan of Treatment Not on filedocumented as of this encounter Visit Diagnoses Not on filedocumented in this encounter"
--- OUTSIDE RECORDS SUMMARY | ~2020-05-20 | XMS | Encounter Summary ---
Demographics + + + | Address | [address] | | | [place] [address] | + + + | Home Phone [...] + + + | Author | [facility] | | | and [place] | + + + | Organization | [facility] | | | [...] Team Providers + +------+ + | Care Security Police Name | Role | Phone | + +------+ + | Paul Hogan MD | PCP | | + +------+ + Encounter Details +--------+ + + + + | Date | Type | Department | Care Team | Description | +--------+ + + + + | 01/05/ | Orders Only | [facility] [place] | Umer Garcia MD | Back pain, | | 2015 | | NEUROSURGERY [address] | [address] | unspecified location | | | | [address] | [place] [address] | (Primary Dx) | | | | [place] | [phone] | | | | | [address] | | | | | | [phone] | | | +--------+ + + + [...] Not on filedocumented as of this encounter Results XR Lumbar Spine 4 + Vw (03/03/2015 1:16 PM PDT) + + | Specimen | + + | | + + + + + | Narrative | Performed At | + + + | EXAM: XR LUMBAR SPINE 4 + VW dated 03/03/2015 1:03 PM | [facility] | | HISTORY:Back pain COMPARISON: None. FINDINGS:4 views of the | [facility] | | lumbar spine. 5 nonrib-bearing lumbar-type vertebral bodies. No | [facility] | | scoliosis. There is retrolisthesis of L2 by about 3 mm. There is | - IMAGING | | disc narrowing at all lumbar levels. No definite abnormal | | | translation. There is a moderate compression deformity of T12. | | | Facet arthrosis at L3-L4 through L5-S1. Nonaneurysmal vascular | | | calcification in the aorta. A probable pill fragment in the right | | | abdomen. IMPRESSION - Lumbar spondylosis. Retrolisthesis | | | of L2. Moderate compression deformity at T12. Dictated and | | | Signed by: Abdirashid Sanchez MD Electronically signed: 03/03/2015 | | | 3:55 PM | | + + + + + | Procedure Note | + + | Brian, Rad Results In - 03/03/2015 3:58 PM PDT EXAM: XR LUMBAR SPINE 4 + VW dated | | 03/03/2015 1:03 PMHISTORY:Back painCOMPARISON: None.FINDINGS:4 views of the lumbar spine. | | 5 nonrib-bearing lumbar-type vertebralbodies. No scoliosis. There is retrolisthesis | | of L2 by about 3 mm. There isdisc narrowing at all lumbar levels. No definite abnormal | | translation. Thereis a moderate compression deformity of T12. Facet arthrosis at | | L3-L4 throughL5-S1. Nonaneurysmal vascular calcification in the aorta. A probable | | pillfragment in the right abdomen.IMPRESSION -Lumbar spondylosis.Retrolisthesis of | | L2.Moderate compression deformity at T12.Dictated and Signed by: Abdirashid Sanchez MD | | Electronically signed: 03/03/2015 3:55 PM | |is a moderate compression deformity of T12. Facet arthrosis at L3-L4 through | |L5-S1. Nonaneurysmal vascular calcification in the aorta. A probable pill | |fragment in the right abdomen. | | | |IMPRESSION - | | | |Lumbar spondylosis. | | | |Retrolisthesis of L2. | | | |Moderate compression deformity at T12. | | | |Dictated and Signed by: Abdirashid Sanchez MD | | Electronically signed: 03/03/2015 3:55 PM | + + + + + + + | Performing | Address | City/State/Zipcode | Phone Number | | Organization | | | | + + + + + | [facility] | [address] | [place] | [phone] | | [facility] | | [address] | | | - IMAGING | | | | + + + + + documented in this encounter Visit Diagnoses + + | Diagnosis | + + | Back pain, unspecified location - Primary | + + documented in this encounter"
--- OUTSIDE RECORDS SUMMARY | ~2020-05-20 | XMS | Encounter Summary ---
Demographics + + + | Address | [address] | | | [place] [address] | + + + | Home Phone | | + + + | Preferred Language | Unknown | + + + | Marital Status | | + + + | Temple Affiliation | 1028 | + + + | Race | White | + + + | Ethnic Group | Not or | + + + Author + + + | Author | [facility] | | | and [place] | + + + | Organization | [facility] | | | and [...] Team Providers + +------+ + | Care Journeyman Sheet Metal Worker Name | Role | Phone | [...] | | [address] | [place] [address] | SPINE (Primary Dx); | | | | [place] | [phone] | Facet arthropathy, | | | | [address] | | lumbar; Lumbar | | | | [phone] | | radiculopathy; | | | | [...] t he original. Umer Garcia MD [address] [facility] [place] [address] FAX: NEUROSURGERY FOLLOW-UP CHIEF COMPLAINT: [...] Date DVT of leg (deep venous thrombosis) ([facility]) Osteoarthritis Depression Gastric reflux Hypertension Hyperlipidemia [...]
--- OUTSIDE RECORDS SUMMARY | ~2020-05-20 | XMS | Encounter Summary ---
Demographics + + + | Address | [address] | | | [place] [address] | + + + | Home Phone | | + + + | Preferred Language | Unknown | + + + | Marital Status | | + + + | Adventism Affiliation | 1028 | + + + | Race | White | + + + | Ethnic Group | Not or | + + + Author + + + | Author | [facility] | | | and [place] | + + + | Organization | [facility] | | | [...] Team Providers + +------+ + | Care Automobile Damage Field Appraiser Name | Role | Phone | + +------+ + | Ethan Solomon MD | PCP | | + +------+ + Encounter Details +--------+ + + + + | Date | Type | Department | Care Team | Description | +--------+ + + + + | 09/20/ | Imaging | [facility] | Provider, | | | 2018 | Exam | MED CTR EXTERNAL | MD [address] | | | | | IMAGING [address] | [address] | | | | | [address] | [place] [address] | | | | | [place] [address] | | | | | | [phone] | | | +--------+ + + + [...] + + + | XR CERVICAL SPINE 4 | Routin | 09/13/2017 | | Results for this | | OR 5 VWS | e | 1:05 PM | | procedure are in the | | | | PST | | results section. | + +--------+ + + + documented in this encounter Results XR Cervical Spine 4 or 5 Vws (09/13/2017 1:05 PM PST) + + | Specimen | + + | | + + + + + | Narrative | Performed At | + + + | External films | [facility] | | for comparison only - no result from [place]. | | + + + + +---------+ + + | Performing | Address | City/State/Zipcode | Phone Number | | Organization | | | | + +---------+ + + | [facility] | | | | + +---------+ + + documented in this encounter Visit Diagnoses Not on filedocumented in this encounter"
--- OUTSIDE RECORDS SUMMARY | ~2020-05-20 | XMS | Encounter Summary ---
Demographics + + + | Address | [address] | | | [place] [address] | + + + | Home Phone | | + + + | Preferred Language | Unknown | + + + | Marital Status | | + + + | Congregation Affiliation | 1028 | + + + | Race | White | + + + | Ethnic Group | Not or | + + + Author + + + | Author | [facility] | | | and [place] | + + + | Organization | [facility] | | | [...] Team Providers + +------+ + | Care Supervisor Electronics Testing Name | Role | Phone | + +------+ + PCP | Unavailable | + +------+ + Encounter Details +--------+ + + + + | Date | Type | Department | Care Team | Description | +--------+ + + + + | 01/24/ | Hospital | [facility] | Conversion | Pain | | 2014 | Encounter | CONVERSION [address] | Transaction, | | | | | [address] | Provider Unknown | | | | | [place] | [phone] | | | | | [address] | | | | | | [phone] | | | +--------+ + + + [...]
--- OUTSIDE RECORDS SUMMARY | ~2020-05-20 | XMS | Encounter Summary ---
Demographics + + + | Address | [address] | | | [place] [address] | + + + | Home Phone | | + + + | Preferred Language | Unknown | + + + | Marital Status | | + + + | Faith Affiliation | 1028 | + + + | Race | White | + + + | Ethnic Group | Not or | + + + Author + + + | Author | [facility] | | | and [place] | + + + | Organization | [facility] | | | [...] Team Providers + +------+ + | Care Furnace Utility Operator Name | Role | Phone | + +------+ + | Paul Hogan MD | PCP | | + +------+ + Reason for Visit + + + | Reason | Comments | + + + | Follow-up | Post op | + + + Encounter Details +--------+---------+ + + + | Date | Type | Department | Care Team | Description | +--------+---------+ + + + | 05/28/ | Office | [facility] | Aric Wilcox | Cervical spondylosis | | 2015 | Visit | NEUROSURGERY [address] | [address] | with myelopathy | | | | [address] | [address] [place], [place] | (Primary Dx); | | | | [place], [place] | [address] | Cervical spondylosis | | | | [address] | | with radiculopathy; | | | | [phone] | | S/P cervical spinal | | [...] + + + | Blood Pressure | 156/90 | 05/28/2015 2:17 PM | | | | | PDT | | + + + + + | Pulse | 70 | 05/28/2015 2:17 PM | | | | | PDT | | + + + + + | Temperature | - | - | | + + + + + | Respiratory Rate | 18 | 05/28/2015 2:17 PM | | | | | PDT | | + + + + + | Oxygen Saturation | - | - | | + + + + + | Inhaled Oxygen | - | - | | | Concentration | | | | + + + + + | Weight | 76.2 kg (168 lb) | 05/28/2015 2:17 PM | | | | | PDT | | + + + + + | Height | 165.1 cm (5' 5") | 05/28/2015 2:17 PM | | | | | PDT | | + + + + + | Body Mass Index | 27.96 | 05/28/2015 2:17 PM | | | | | PDT [...] of this encounter Patient Instructions Patient Instructions Aric Wilcox PA - 05/28/2015 2:36 PM PDTAt this time you can increase your activity to lift up to 15 pounds. We will see you back in 2 months with x-ra ys documented in this encounter Progress Notes Aric Wilcox PA - 05/28/2015 2:37 PM PDTFormatting of this note might be differen t from the original. [place] [address] [facility] [address] [place] [address] FAX: NEUROSURGERY SURGICAL FOLLOW-UP CHIEF COMPLAINT: Chief Complaint Patient presents with Follow-up Post op HISTORY OF PRESENT ILLNESS: The patient is a 80 y.o. female that had a cervical fusion for myelopathy around 4 weeks ago. She returns and overall is doing fairly well. The patient complains of continued back pain. She does have pain in her thumb and wrist but she is seei ng an orthopedic surgeon for this. This affects her left hand. The patient has been walkin g as much as possible and has been following their restrictions overall. The patient has shore d no issues with her surgical site. So far issues with swallowing have not been a significa nt problem. She has not had major issues with hoarseness. CURRENT MEDICATIONS: Current Outpatient Prescriptions Medication Sig [...] daily. cyclobenzaprine (FLEXERIL) 10 mg tablet Take 1 tablet by mouth nightly. 90 tablet 3 furosemide (LASIX) 40 mg tablet Take 40 mg by mouth Daily. gabapentin (NEURONTIN) 300 mg capsule Take 300 mg by mouth 2 times daily. HYDROcodone-acetaminophen (NORCO) 10-325 mg per tablet Take 1-2 tablets by mouth every 4 hours as needed for Pain. 120 tablet 0 KRILL OIL 1000 MG CAPS Take 1,000 mg by mouth Daily. levothyroxine (SYNTHROID, LEVOTHROID) 25 mcg tablet Take 25 mcg by mouth every morning (before breakfast). lisinopril (PRINIVIL, ZESTRIL) 20 mg tablet Take [...] llicit drugs. INTERIM PHYSICAL EXAMINATION: Blood pressure 156/90, pulse 70, resp. rate 18, height 1.651 m (5' 5"), weight 76.204 kg (1 68 lb), not currently . Body mass index is 27.96 kg/(m^2). GENERAL: Mellisa Carrizales is in no acute distress with unlabored respirations. HEENT: HEAD/FACE: Normocephalic and atraumatic. There are no areas of recent trauma. SPINE: The patient s incision is healing well. There is not significant erythema or disc harge. EXTREMITIES: No lower extremity edema. NEUROLOGICAL EXAMINATION: MENTAL STATUS: The patient is awake, alert, and oriented. She follows simple and complex commands MOTOR EXAM: Motor strength is 5/5. SENSORY EXAM: The sensory examination is stable REFLEXES: Reflexes are unchanged from her preoperative history and physical. RADIOGRAPHIC REVIEW: The patient s postoperative x-rays show stable instrumentation and alignment and were rev iewed with the patient today. There have been no interval changes since the immediate posto perative films. Complete fusion has not yet occurred, but this is normal and would not be e xpected at this time. ASSESSMENT: S/P cervical fusion for: Encounter Diagnoses Name Primary? Cervical spondylosis with myelopathy Yes Cervical spondylosis with radiculopathy S/P cervical spinal fusion Past Medical History Diagnosis Date DVT of leg (deep venous thrombosis) (H[facility]) Osteoarthritis Depression Gastric reflux Hypertension Hyperlipidemia Migraine Neuropathy Poor circulation Hypothyroid Full dentures upper & lower PLAN: Overall, the patient is doing fairly well. The dinkey press operator to recovery will take many months and perhaps years. Hopefully, we will see further improvement over time. I increased the patient s activities today allowing 15 pound lifting. I would like the patient to advance slowly with this process and discussed this at length. I would also like the patient to continue with postoperative rehabilitation and to advance with independent or directed therapy as tolerated. So far, things are progressing as planned. At our next visit we can discuss her back in mo re detail The patient will follow-up with me in around 8 weeks for re-evaluation. ELECTRONICALLY SIGNED BY: GABRIEL [place], 05/28/2015 14:37 documented in th is encounter Plan of Treatment + +---------+--------+ + + | Name | Type | Priori | Associated Diagnoses | Order Schedule | | | | ty | | | + +---------+--------+ + + | XR CERVICAL SPINE 2 | Imaging | Routin | Cervical | Expected: 07/07/2015 | | OR 3 VIEWS | | e | spondylosis with | (Approximate), | | | | | myelopathy Cervical | Expires: 05/26/2016 | | | | | spondylosis with | | | | | | radiculopathy S/P | | | | | | cervical spinal | | | | | | fusion | | + +---------+--------+ + + documented as of this encounter Visit Diagnoses + + | Diagnosis | + + | Cervical spondylosis with myelopathy - Primary | + + | Cervical spondylosis with radiculopathy Cervical spondylosis with myelopathy | + + | S/P cervical spinal fusion Arthrodesis status | + + documented in this encounter
--- OUTSIDE RECORDS SUMMARY | ~2020-05-20 | XMS | Encounter Summary ---
Demographics + + + | Address | [address] | | | [place] [address] | + + + | Home Phone | | + + + | Preferred Language | Unknown | + + + | Marital Status | | + + + | Confucianism Affiliation | 1028 | + + + | Race | White | + + + | Ethnic Group | Not or | + + + Author + + + | Author | [facility] | | | and [place] | + + + | Organization | [facility] | | | [...] Team Providers + +------+ + | Care Java Oracle Developer Name | Role | Phone | + +------+ + | Ethan Solomon MD | PCP | | + +------+ + Encounter Details +--------+ + + + + | Date | Type | Department | Care Team | Description | +--------+ + + + + | 10/09/ | Orders Only | [facility] | Umer Garcia MD | S/P lumbar fusion | | 2019 | | NEUROSURGERY [address] | [address] | (Primary Dx); Facet | | | | [address] | [place] [address] | arthropathy, lumbar; | | | | [place], [place] | [phone] | Chronic bilateral | | | | [address] | | low back pain | | | | [phone] | | without sciatica | +--------+ + + + + Social [...] Progress Notes Aric Wilcox PA-C - 10/09/2018 3:03 PM PSTCT order signed documented in this encounter Plan of Treatment Not on filedocumented as of this encounter Visit Diagnoses + + | Diagnosis | + + | S/P lumbar fusion - Primary Arthrodesis status | + + | Facet arthropathy, 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
--- OUTSIDE RECORDS SUMMARY | ~2020-05-20 | XMS | Encounter Summary ---
Demographics + + + | Address | [address] | | | [place] [address] | + + + | Home Phone | | + + + | Preferred Language | Unknown | + + + | Marital Status | | + + + | Baptism Affiliation | 1028 | + + + [...] Team Providers + +------+ + | Care Stud Driver Name | Role | Phone | [...] + + | Closed | Specialty | Physical | Diagnoses | [facility], | [facility] | | | Services | Therapy | Spinal | Aric | [facility] | | | Required | | stenosis, | [facility] | | | | | lumbar | [address] | [address] | | | | | Lumbar | AVE | AVE | | | | | radiculopath | [place], [place] | [place], [place] | | | | | [place] | [address] | [address] | | | | | stenosis of | Phone: | Phone: | | | | | cervical | [phone] | [phone] | | | | | region S/P | Fax: | Fax: | | | | | lumbar | [phone] | [phone] | | | | | fusion | | | +--------+ + + + + + Reason for Visit + + + | Reason | Comments | + + + | Follow-up | 4w Po | + + + Encounter Details +--------+---------+ + + + | Date | Type | Department | Care Team | Description | +--------+---------+ + + + | 01/18/ | Office | [facility] | Aric Wilcox | Spinal stenosis, | | 2016 | Visit | NEUROSURGERY [address] | [address] | lumbar (Primary Dx); | | | | [address] [place], [place] | Lumbar | | | | [place], [place] | [address] | radiculopathy; | | | | [address] | | Foraminal stenosis | | | | [phone] | | of cervical region; | | | | | | S/P lumbar fusion | +--------+---------+ + + + Social [...] + + + | Blood Pressure | 100/74 | 01/19/2016 12:23 PM | | | | | PDT | | + + + + + | Pulse | 64 | 01/19/2016 12:23 PM | | | | | PDT | | + + + + + | Temperature | - | - | | + + + + + | Respiratory Rate | 18 | 01/19/2016 12:23 PM | | | | | PDT | | + + + + + | Oxygen Saturation | - | - | | + + + + + | Inhaled Oxygen | - | - | | | Concentration | | | | + + + + + | Weight | 72.6 kg (160 lb) | 01/19/2016 12:23 PM | | | | | PDT | | + + + + + | Height | 165.1 cm (5' 5") | 01/19/2016 12:23 PM | | | | | PDT | | + + + + + | Body Mass Index | 26.63 | 01/19/2016 12:23 PM | | | | | PDT [...] Instructions Patient Instructions Aric Wilcox PA - 01/19/2016 12:46 PM PDTAt this time you may increase your activities allowing lifting up to 15 pounds. You may also begin weaning your brace and begin physical therapy. We will see you back in the office in approximately 2 mo nths with x-rays of your lumbar spine SPINE BRACE WEANING PROTOCOL (5 WEEKS) Below are instructions for weaning your brace. You can move through the weeks slower if yo u feel the need to do so, but the overall goal is to get you out of the brace slowly over th e next several weeks. WEEK 1 If you have been using your brace for activities like sleeping, showering, do not use the b race for these activities any longer but continue using it for everything else. WEEK 2 Stop wearing your brace for sitting and short distance walking. You should use the brace f or anything more involved. WEEK 3 Stop using the brace for medium distance walking. You can bend and twist your back but sti ll proceed slowly with these activities. WEEK 4 Stop using the brace for everything but the most difficult tasks. You should now be able to go on long walks and lift more weight as directed. Add more bending and twisting as tolera landy. WEEK 5 Stop using the brace for daily use. I would encourage you to use the brace in the future f or activities that you know might aggravate your back or cause pain. You should still work to strengthen your back and use good technique when spanish moss picker things and bending. Electronica lly signed by GABRIEL Noonan at 01/19/2016 12:47 PM PDT documented in this encounter Progress Notes Aric Wilcox PA - 01/19/2016 12:47 PM PDTFormatting of this note might be differen t from the original. GABRIEL Alston [address] [facility] [place], [address] [place] [address] FAX: NEUROSURGERY FOLLOW-UP CHIEF COMPLAINT: Chief Complaint Patient presents with Follow-up 4w Po HISTORY OF PRESENT ILLNESS: The patient is a 81 y.o. female that had a lumbar fusion for s fallon stenosis and radiculopathy around 4 weeks ago. She returns and overall is doing well. The patient complains of some numbness in her legs which come and go. Overall though her symptoms have been improving from before surgery. The patient has been walking as much as directed. She is still taking pain medications at this point. The patient has had no issue s with her surgical site. CURRENT MEDICATIONS: Current [...] Take by mouth 2 ti mes daily. DiphenhydrAMINE HCl (BENADRYL ALLERGY PO) Take by mouth as needed. furosemide (LASIX) 40 mg tablet Take 40 mg by mouth Daily. gabapentin (NEURONTIN) 300 mg capsule Take 300 mg by mouth 2 times daily. levothyroxine (SYNTHROID, LEVOTHROID) 25 mcg tablet Take 25 mcg by mouth every morning (before breakfast). melatonin 5 mg tablet Take 10 mg by mouth nightly. omeprazole (PRILOSEC) 20 mg capsule Take 20 mg by mouth Daily. oxyCODONE (ROXICODONE) 5 mg tablet Take 1-4 tablets by mouth every 4 hours as needed fo r Pain. 120 tablet 0 paroxetine (PAXIL) 30 MG tablet Take 30 mg by mouth Daily. potassium chloride (MICRO-K) 10 mEq CR capsule Take 10 mEq by mouth Daily. tiZANidine (ZANAFLEX) 4 mg tablet Take 0.5 [...] llicit drugs. INTERIM PHYSICAL EXAMINATION: Blood pressure 100/74, pulse 64, resp. rate 18, height 1.651 m (5' 5"), weight 72.576 kg (1 60 lb), not currently . Body mass index is 26.63 kg/(m^2). GENERAL: Mellisa Carrizales is in no acute distress with unlabored respirations. SPINE: The patient s incisions are healing well without drainage, significant erythema, o r discharge. EXTREMITIES: No lower extremity edema. NEUROLOGICAL EXAMINATION: MENTAL STATUS: The patient is awake, alert, and oriented. She follows simple and complex commands MOTOR EXAM: Motor strength is improved. . RADIOGRAPHIC REVIEW: The patient s x-rays show stable instrumentation and alignment and were reviewed with the patient today. There have been no interval changes since the immediate postoperative films . Complete fusion has not yet occurred, but this is normal and would not be expected at thi s time. ASSESSMENT: Encounter Diagnoses Name Primary? Spinal stenosis, lumbar Yes Lumbar radiculopathy Foraminal stenosis of cervical region S/P lumbar fusion Past Medical History Diagnosis Date DVT of leg (deep venous thrombosis) ([facility]) Osteoarthritis Depression Gastric reflux Hypertension Hyperlipidemia Migraine Neuropathy Poor circulation Hypothyroid Full dentures upper & lower Seasonal allergies Claustrophobia Sleep apnea no CPAP PLAN: Overall, the patient is doing well. The patient can see some improvements but continues to recover from recent surgery. I increased the patient s activities now allowing 15 pound lifting. The patient should i ncrease range of motion activities as tolerated. I would like the patient to advance slowly with this process and discussed this at length during today's visit. I would also like the patient to continue with postoperative rehabilitation and to advance with therapy as tolera landy. We discussed that we can provide pain medications for up to two additional months. We disc ussed the need to continue tapering pain medication. If they need longer term pain medicati on, they should begin working on either pain management or with the primary care provider. I am hoping to see improvement over the coming weeks to months and plan to continue to foll ow this patient. The patient will follow-up in clinic in around 8 weeks for re-evaluation. ELECTRONICALLY SIGNED BY: GABRIEL Alston, 01/19/2016 12:47 documented in th is encounter Plan of Treatment + + +--------+ + + | Name | Type | Priori | Associated Diagnoses | Order Schedule | | | | ty | | | + + +--------+ + + | OUTPATIENT PT | Outpatient | Routin | Spinal stenosis, | Ordered: 01/19/2016 | | EXTERNAL | Referral | e | lumbar Lumbar | | | | | | radiculopathy | | | | | | Foraminal stenosis | | | | | | of cervical region | | | | | | S/P lumbar fusion | | + + +--------+ + + documented as of this encounter Results XR Lumbar Spine 2 or 3 Vw (04/14/2016 1:46 PM PDT) + + | Specimen | + + | | + + + + + | Narrative | Performed At | + + + | XR LUMBAR SPINE 2 OR 3 VW. 04/14/2016 1:46 PM HISTORY: Postop . | [facility] | | COMPARISON: 01/19/2016 FINDINGS: Posterior spinal fusion | [facility] | | hardware seen at the levels of L4-S1, with disc spacer placement at [facility] | | the intervening levels, without evidence of hardware complication or | - IMAGING | | subsidence. There is mild broad-based dextroconvex curvature of the | | | lumbar spine. There is retrolisthesis of L2 on L3, not | | | substantially changed as compared with 01/19/2016. Vertebral body | | | heights are maintained. There is diffuse degenerative disc disease | | | at the nonfused levels. Decreased disc height seen at L2-3. Facet | | | degenerative hypertrophy, greater in the lower lumbar spine. | | | Calcification of the aorta and branching vessels. Degenerative | | | change is seen at both hips. IMPRESSION - Stable posterior | | | spinal fusion spanning L4-S1. Dictated and Signed by: Wilman | | | MD Torrey Electronically signed: 04/14/2016 2:52 PM | | + + + + + | Procedure Note | + + | Brian, Rad Results In - 04/14/2016 2:56 PM PDT XR LUMBAR SPINE 2 OR 3 VW. 04/14/2016 | | 1:46 PMHISTORY: Postop . COMPARISON: 01/19/2016FINDINGS:Posterior spinal fusion hardware | | seen at the levels of L4-S1, with disc spacerplacement at the intervening levels, | | without evidence of hardware complicationor subsidence. There is mild broad-based | | dextroconvex curvature of the lumbarspine. There is retrolisthesis of L2 on L3, not | | substantially changed ascompared with 01/19/2016. Vertebral body heights are maintained. | | There isdiffuse degenerative disc disease at the nonfused levels. Decreased disc | | heightseen at L2-3. Facet degenerative hypertrophy, greater in the lower lumbarspine. | | Calcification of the aorta and branching vessels. Degenerative changeis seen at both | | hips.IMPRESSION -Stable posterior spinal fusion spanning L4-S1.Dictated and Signed by: | | Wilman Hirsch MD Electronically signed: 04/14/2016 2:52 PM | |compared with 01/19/2016. Vertebral body heights are maintained. There is | |diffuse degenerative disc disease at the nonfused levels. Decreased disc height | |seen at L2-3. Facet degenerative hypertrophy, greater in the lower lumbar | |spine. Calcification of the aorta and branching vessels. Degenerative change | |is seen at both hips. | | | | | |IMPRESSION - | |Stable posterior spinal fusion spanning L4-S1. | | | |Dictated and Signed by: Wilman Hirsch MD | | Electronically signed: 04/14/2016 2:52 PM | + + + + + + + | Performing | Address | City/State/Zipcode | Phone Number | | Organization | | | | + + + + + | [facility] | [address] | [place] | [phone] | | [facility] | | [address] | | | - IMAGING | | | | + + + + + documented in this encounter Visit Diagnoses + + | Diagnosis | + + | Spinal stenosis, lumbar - Primary Spinal stenosis, lumbar region, without neurogenic | | claudication | + + | Lumbar radiculopathy Thoracic or lumbosacral neuritis or radiculitis, unspecified | + + | Foraminal stenosis of cervical region Spinal stenosis in cervical region | + + | S/P lumbar fusion Arthrodesis status | + + documented in this encounter
--- OUTSIDE RECORDS SUMMARY | ~2020-05-20 | XMS | Encounter Summary ---
Demographics + + + | Address | [address] | | | [place] [address] | + + + | Home Phone [...] + + + | Author | [facility] | | | and [place] | + + + | Organization | [facility] | | | [...] Team Providers + +------+ + | Care Ash Worker Name | Role | Phone | + +------+ + | Paul Hogan MD | PCP | | + +------+ + Encounter Details +--------+ + + + + | Date | Type | Department | Care Team | Description | +--------+ + + + + | 04/28/ | Orders Only | [facility] | Aric Wilcox | S/P cervical spinal | | 2015 | | NEUROSURGERY [address] | [address] | fusion (Primary Dx) | | | | [address] | [address] [place], [place] | | | | | [place], [place] | [address] | | | | | [address] | | | | | | [phone] | | | +--------+ + + + [...] filedocumented as of this encounter Results XR CERVICAL SPINE 2 OR 3 VIEWS (05/28/2015 12:43 PM PDT) + + | Specimen | + + | | + + + + + | Narrative | Performed At | + + + | CERVICAL SPINE: 05/28/2015 12:42 PM CLINICAL HISTORY: Postop | [facility] | | COMPARISON: 04/30/2015 FINDINGS: AP and lateral views of the | [facility] | | cervical spine. Stable anterior compression plate and screws from [facility] | | C5 to C7. Interbody bone grafts at each level. Alignment is normally | - IMAGING | | maintained. Vertebral body heights are stable. Multilevel posterior | | | facet degenerative change. No other bony abnormality. Adjacent soft | | | tissues are unremarkable. IMPRESSION - Stable C5-C7 ACDF. | | | Dictated and Signed by: Doug Maxwell MD Electronically signed: | | | 05/28/2015 5:10 PM | | + + + + + | Procedure Note | + + | Brian, Rad Results In - 05/28/2015 5:13 PM PDT CERVICAL SPINE: 05/28/2015 12:42 PM | | | | CLINICAL HISTORY: Postop | | | | COMPARISON: 04/30/2015 | | | | FINDINGS: AP and lateral views of the cervical spine. | | | | Stable anterior compression plate and screws from C5 to C7. Interbody bone | | grafts at each level. Alignment is normally maintained. Vertebral body heights | | are stable. Multilevel posterior facet degenerative change. No other bony | | abnormality. Adjacent soft tissues are unremarkable. | | | | IMPRESSION - Stable C5-C7 ACDF. | | | | Dictated and Signed by: Doug Maxwell MD | | Electronically signed: 05/28/2015 5:10 PM | + + + + + + + | Performing | Address | City/State/Zipcode | Phone Number | | Organization | | | | + + + + + | [facility] | [address] | [place] | [phone] | | [facility] | | [address] | | | - IMAGING | | | | + + + + + documented in this encounter Visit Diagnoses + + | Diagnosis | + + | S/P cervical spinal fusion - Primary Arthrodesis status | + + documented in this encounter"
--- OUTSIDE RECORDS SUMMARY | ~2020-05-20 | XMS | Encounter Summary ---
Demographics + + + | Address | [address] | | | [place] [address] | + + + | Home Phone | | + + + | Preferred Language | Unknown | + + + | Marital Status | | + + + | Synagogue Affiliation | 1028 | + + + | Race | White | + + + | Ethnic Group | Not or | + + + Author + + + | Author | [facility] | | | and [place] | + + + | Organization | [facility] | | [...] Team Providers + +------+ + | Care Auricular Acupuncturist Name | Role | Phone | + +------+ + PCP | Unavailable | + +------+ + Encounter Details +--------+ + + + + | Date | Type | Department | Care Team | Description | +--------+ + + + + | 07/10/ | Hospital | [facility] | Conversion | Back pain | | 2012 | Encounter | CONVERSION [address] | Transaction, | | | | | [address] | Provider Unknown | | | | | [place] | [phone] | | | | | [address] | | | | | | [phone] | | | +--------+ + + + [...] MRI LUMBAR SPINE WO | Routin | 03/15/2013 | | Results for this | | CONTRAST | e | 4:02 PM | | procedure are in the | | | | PDT | | results section. | + +--------+ + + + documented in this encounter Results MRI Lumbar Spine wo Contrast (03/15/2013 4:02 PM PDT) + + | Specimen | + + | | + + + + + | Narrative | Performed At | + + + | This is a non-reportable procedure without a radiologist report and | | | is used for image storage only | | + + + + + | Procedure Note | + + | Aleksander Torres Conversion - 05/03/2019 6:12 PM PDT This is a non-reportable procedure | | without a radiologist report and isused for image storage only | + + documented in this encounter Visit Diagnoses + + | Diagnosis | + + | Back pain Backache, unspecified | + + documented in this encounter"
--- OUTSIDE RECORDS SUMMARY | ~2020-05-20 | XMS | Encounter Summary ---
Demographics + + + | Address | [address] | | | [place] [address] | + + + | Home Phone | | + + + | Preferred Language | Unknown | + + + | Marital Status | | + + + | Protestant Affiliation | 1028 | + + + | Race | White | + + + | Ethnic Group | Not or | + + + Author + + + | Author | [facility] | | | and [place] | + + + | Organization | [facility] | | | [...] Providers + +------+ + | Care Senior Living Advisor Name | Role | Phone | + +------+ + | Paul Hogan MD | PCP | | + +------+ + Encounter Details +--------+ + + + + | Date | Type | Department | Care Team | Description | +--------+ + + + + | 03/03/ | Hospital | [facility] | Umer Garcia MD | Back pain, | | 2015 | Encounter | MED CTR XRAY [address] | [address] | unspecified location | | | | [place] | [place] [address] | | | | | [place] [address] | [phone] | | | | | [phone] | | | +--------+ + + + [...] + +---------+ + + | | Take 1 tablet by | | 0 | | | | HYDROcodone-acetamin | mouth every 6 hours | | | | 5 | | ophen (NORCO) 5-325 [...] + + + | XR LUMBAR SPINE 4 + | Routin | 03/03/2015 | Back pain, | Results for this | | VW | e | 1:16 PM | unspecified location | procedure are in the | | | | PDT | | results section. | + +--------+ + + + documented in this encounter Results XR Lumbar Spine 4 [...] + | [facility] | [address] | [place] | [phone] | | [facility] | | [address] | | | - IMAGING | | | | + + + + + documented in this encounter Visit Diagnoses + + | Diagnosis | + + | Back pain, unspecified location | + + documented in this encounter"
--- OUTSIDE RECORDS SUMMARY | ~2020-05-20 | XMS | Encounter Summary ---
Demographics + + + | Address | [address] | | | [place] [address] | + + + | Home Phone [...] Author | [facility] [...] Team Providers + +------+ + | Care Stitching Machine Operator Name | Role | Phone | + +------+ + | Paul Hogan MD | PCP | | + +------+ + Reason for Visit + +--------+ + | Reason | Onset | Comments | | | Date | | + +--------+ + | Medication Refill | 04/28/ | | | | 2014 | | + +--------+ + Encounter Details +--------+ + + + + | Date | Type | Department | Care Team | Description | +--------+ + + + + | 04/28/ | Telephone | [facility] | Umer Garcia MD | Medication Refill | | 2014 | | NEUROSURGERY [address] | [address] | | | | | [address] [facility] [address] | [place] [address] | | | | | [place] | [phone] | | | | | [address] | | | | | | [phone] | | | +--------+ + + + [...] Miscellaneous Notes Telephone Encounter - Mulu Zaldivar, Machine Designer - 04/28/2015 9:[address] [facility] ed patient to inform her that the Rx she requested last week for pain medication is ready fo r mushroom picker. ( Patient is having surgery on 04/30/15 and will be given post op medications so s he will get her medications then). This original Rx has been destroyed per patient request. Martha Zaldivar d ocumented in this encounter Plan of Treatment Not on filedocumented as of this encounter Visit Diagnoses Not on filedocumented in this encounter"
--- OUTSIDE RECORDS SUMMARY | ~2020-05-20 | XMS | Encounter Summary ---
Demographics + + + | Address | [address] | | | [place] [address] | + + + | Home Phone | | + + + | Preferred Language | Unknown | + + + | Marital Status | | + + + | Baptist Affiliation | 1028 | + + + | Race | White | + + + | Ethnic Group | Not or | + + + Author + + + | Author | [facility] | | | and [place] | + + + | Organization | [facility] | | | [...] Team Providers + +------+ + | Care Ophthalmic Nurse Name | Role | Phone | + [...] | | | | [address] | [place] [address] | | | | | [place], [place] | [phone] | | | | | [address] | | | | | | [phone] | | | +--------+ + + + [...] AP, Grashey, scapular Y. Comparison Exam: 10/25/2017, [facility] | | | [facility].. Findings: The patient [...] created this entry | | | using [employer] Recognition software and [employer] | | | macros. The entry [...] | | scapular Y. Comparison Exam: 10/25/2017, [facility].. Findings: The patient | | status [...] has | | created this entry using [employer] VoiceRecognition software and [employer] macros. | | The entry has been [...] HENDRIX MD has created this entry using [employer] | |Recognition software and [employer] macros. The entry has been reviewed and | |there may still exist sound alike word errors. | | | + + documented in this encounter Visit Diagnoses Not on filedocumented in this encounter"
--- OUTSIDE RECORDS SUMMARY | ~2020-05-20 | XMS | Encounter Summary ---
Demographics + + + | Address | [address] | | | [place] [address] | + + + | Home Phone | | + + + | Preferred Language | Unknown | + + + | Marital Status | | + + + | Oriental Orthodox Affiliation | 1028 | + + + | Race | White | + + + | Ethnic Group | Not or | + + + Author + + + | Author | [facility] | | | and [place] | + + + | Organization | [facility] | | | [...] Team Providers + +------+ + | Care Aircraft Structural Design Engineer Name | Role | Phone | + +------+ + PCP | Unavailable | + +------+ + Encounter Details +--------+ + + + + | Date | Type | Department | Care Team | Description | +--------+ + + + + | [facility] | Umer Garcia MD | | | 2010 | Encounter | MED CTR XRAY [address] | [address] | | | | | [place] | [place] [address] | | | | | [place] [address] | [phone] | | | | | [phone] | | | +--------+ + + + [...] Performed At | + + + | [facility] Diagnostic Imaging Department | [place] | | [address] , [place] | [facility] | | | DIAG IMG | | Extremity Arterial Ultrasound | | | [facility] Attending Physician: | | | Jose Soaker Hides: MARY Manzano | | | Info: Low pulses bilateral, vascular claudication. | | | | | | RIGHT Peak End | | | Velocity Phasicity Systolic | | | Diastolic Ratio Distal/ (T,B or M | | | ) Velocity Velocity | | | Proximal SENIOR WINDOWS SYSTEMS ENGINEER 1.10 m/s .00 m/s | | [...] .00 | | | m/s 2.19 T MARRIAGE AND FAMILY COUNSELOR | | | .69 m/s .00 m/s <1 | | | B DPA .26 m/s .00 m/s | | | <1 B | | | | | | LEFT Peak End | | | Velocity Phasicity | | | Systolic Diastolic Ratio Distal/ | | | (T,B or M ) Velocity Velocity | | | Proximal SENIOR WINDOWS SYSTEMS ENGINEER 1.08 m/s | | | .00 [...] .00 m/s 2.07 | | | B MARRIAGE AND FAMILY COUNSELOR .37 m/s .00 m/s | | | [...] Transcribed Date/Time: 12/14/2010 | | | 17:52 Video Rental Clerk: <Electronically Signed by Shawn Espinal | | | MD Serg> 12/14/10 2212 | | + + + + + | Procedure Note | + + | Brian, Aleksander Conversion - 10/18/2013 2:37 PM [facility] | | Diagnostic Imaging Department | | [address] [facility] | | | | | | | | Extremity Arterial Ultrasound | | [facility] | | | | Attending Physician: Jose Soaker Hides: MARY | | Additional Info: Low pulses bilateral, vascular claudication. | | | | | | RIGHT Peak End Velocity Phasicity | | Systolic Diastolic Ratio Distal/ (T,B or M | | ) | | Velocity Velocity Proximal | | | | SENIOR WINDOWS SYSTEMS ENGINEER 1.10 m/s .00 m/s T | | PFA 1.02 m/s .00 m/s <1 M | | PRX SFA .73 m/s .00 m/s <1 B | | MID SFA .84 m/s .00 m/s 1.15 B | | DST SFA .96 m/s .00 m/s 1.14 T | | LETTY 2.11 m/s .00 m/s 2.19 T | | MARRIAGE AND FAMILY COUNSELOR .69 m/s .00 m/s <1 B | | DPA .26 m/s .00 m/s <1 B | | | | | | | | LEFT Peak End Velocity Phasicity | | Systolic Diastolic Ratio Distal/ (T,B or M | | ) | | Velocity Velocity Proximal | | | | SENIOR WINDOWS SYSTEMS ENGINEER 1.08 m/s .00 m/s T | | PFA .61 m/s .00 m/s <1 T | | PRX SFA .70 m/s .00 m/s <1 B | | MID SFA .67 m/s .00 m/s <1 B | | DST SFA 1.39 m/s .00 m/s <1 T | | LETTY .79 m/s .00 m/s 2.07 B | | MARRIAGE AND FAMILY COUNSELOR .37 m/s .00 m/s <1 B | [...] | Transcribed Date/Time: 12/14/2010 17:52 | | Video Rental Clerk: | | <Electronically Signed by Shawn Ulrich [...]
--- OUTSIDE RECORDS SUMMARY | ~2020-05-20 | XMS | Encounter Summary ---
Demographics + + + | Address | [address] | | | [place] [address] | + + + | Home Phone | | + + + | Preferred Language | Unknown | + + + | Marital Status | | + + + | Yazdanism Affiliation | 1028 | + + + | Race | White | + + + | Ethnic Group | Not or | + + + Author + + + | Author | [facility] | | | and [place] | + + + | Organization | [facility] | | [...] Team Providers + +------+ + | Care Child Welfare Specialist Name | Role | Phone | + +------+ + | Ethan Solomon MD | PCP | | + +------+ + Reason for Visit + + + | Reason | Comments | + + + | Shoulder Pain | | + + + Self-referral (Routine) +--------+--------+ + + + + | Status | Reason | Specialty | Diagnoses / | Referred By | Referred To | | | | | Procedures | Contact | Contact | +--------+--------+ + + + + | Closed | | Orthopedic | Diagnoses | | Ruam, | | | | Surgery | left | | Umer Wolf MD | | | | | shoulder fu | | [address] | | | | | Procedures | | [address] [place], | | | | | OFFICE | | [place] [address] | | | | | VISIT | | Phone: | | | | | REGULAR | | [phone] | | | | | | | Fax: | | | | | | | [phone] | +--------+--------+ + + + + Encounter Details +--------+---------+ + + + | Date | Type | Department | Care Team | Description | +--------+---------+ + + + | 11/06/ | Office | [facility] | Uemr Hendrix, | Arthropathy of left | | 2020 | Visit | ORTHO SPORTS | [address] | shoulder (Primary | | | | MEDICINE PAULINE | [place] [address] | Dx); Primary | | | | [address] | [phone] | osteoarthritis of | | | | [place], [place] | | left shoulder; | | | | [address] | | Status post total | | | | [phone] | | replacement of left | | [...] + documented as of this encounter Progress Abiodun Ford PA - 11/06/2019 1:40 PM PSTFormatting of this note might be dif ferent from the original. [facility] Orthopaedic and Sports Medicine Service: Orthopedic Surgery Postoperative Visit DIAGNOSIS: Status post left total shoulder arthroplasty. Date of surgery 01/03/17 Plan: Physical therapy: continue HEP for further ROM, strengthening Restrictions: none. Activities as tolerated Follow up annually, sooner with any concerns or questions. HISTORY OF PRESENT ILLNESS: The patient is 84 y.o. and is in for postoperative visit following shoulder replacement. Th e patient is not having any pain. The patient denies fever, wound drainage, increasing redne ss, pus, increasing pain, increasing swelling. Post op problems reported: none. The patient has been complaint with restrictions and doing pendulum exercises. Overall the shoulder is doing quite well and she is pleased with her result. She is back to all normal activities wi th pain or difficulty. ROS: Review of Systems All other systems reviewed and are negative. PHYSICAL EXAM: Wt Readings from Last 1 Encounters: 11/06/19 72.1 kg (159 lb) Temp Readings from Last 1 Encounters: 06/21/19 36 C (96.8 F) (Oral) BP Readings from Last 1 Encounters: 11/06/19 132/74 Pulse Readings from Last 1 Encounters: 10/29/19 84 Patient presents today in no acute distress. AAOx3. Breathing unlabored. Incision healed nicely, no erythema, discharge or signs of infection. NV intact distally. Left shoulder with AFF 140, PFF 150, ER 90, IR 60. Smooth motion at shoulder joint. 5-/5 st rength with resisted FF without pain. Shoulder stable. NV intact distally. Radiographs: None today ASSESSMENT: 1. Arthropathy of left shoulder 2. Primary osteoarthritis of left shoulder 3. Status post total replacement of left shoulder PLAN: Patient is doing very well overall. She is really pleased with her shoulder. She is able to do all normal activities and does not have pain in the shoulder. PT/OT continue HEP for shoulder ROM, stregthening Pain meds: not needed Restrictions were reinforced. All questions and concerns were addressed today. Follow up annually, sooner as needed GABRIEL Newell 11/07/2019 9:56 AM GABRIEL Newell has created this entry using [employer] macros. The entry has been reviewed and there may still exist sound alike wo rd errors. do cumented in this encounter Plan of Treatment Not on filedocumented as of this encounter Visit Diagnoses + + | Diagnosis | + + | Arthropathy of left shoulder - Primary | + + | Primary osteoarthritis of left shoulder Primary localized osteoarthrosis, shoulder | | region | + + | Status post total replacement of left shoulder | + + documented in this encounter
--- OUTSIDE RECORDS SUMMARY | ~2020-05-20 | XMS | Encounter Summary ---
Demographics + + + | Address | [address] | | | [place] [address] | + + + | Home Phone | | + + + | Preferred Language | Unknown | + + + | Marital Status | | + + + | Evangelical Affiliation | 1028 | + + + | Race | White | + + + | Ethnic Group | Not or | + + + Author + + + | Author | [facility] | | | and [place] | + + + | Organization | [facility] | | | [...] Team Providers + +------+ + | Care Plumber'S Helper Name | Role | Phone | + +------+ + PCP | Unavailable | + +------+ + Encounter Details +--------+ + + + + | Date | Type | Department | Care Team | Description | +--------+ + + + + | 06/04/ | Hospital | [facility] | Conversion | Lower back pain | | 2012 | Encounter | CENTER CV INTRA OP | Transaction, | | | | | [address] | Provider Unknown | | | | | [place] | [phone] | | | | | [address] | | | | | | [phone] | Jesse Mcarthur, | | | | | | [address] | | | | | | [place], [place] | | | | | | [address] | | | | | | | [...] 06/04/13909 Date of Service: 06/04/13907 Status: Signed Certified Prosthetist: Estefania Sylvester RN (Registered Nurse) DISCHARGE INSTRUCTIONS [...] 06/04/13850 Date of Service: 06/04/13849 Status: Signed Certified Prosthetist: Estefania Sylvester RN (Registered Nurse) Pt awake [...]
--- OUTSIDE RECORDS SUMMARY | ~2020-05-20 | XMS | Encounter Summary ---
Demographics + + + | Address | [address] | | | [place] [address] | + + + | Home Phone [...] Team Providers + +------+ + | Care Construction Supervisor Name | Role | Phone | + +------+ + | Ethan Solomon MD | PCP | | + +------+ + Encounter Details +--------+ + + + + | Date | Type | Department | Care Team | Description | +--------+ + + + + | 04/25/ | Orders Only | [facility] | Sarkis Garcia DNP | | | 2016 | | VASCULAR SURGERY | [address] | | | | | ULTRASOUND [address] | [place], [place] | | | | | [address] | [address] | | | | | [place], [place] | | | | | | [address] | | | | | | [phone] | | | +--------+ + + + [...] | US ARTERIAL UPPER | Routin | 04/25/2017 | | Results for this | | EXTREMITY UNILATERAL | e | 2:09 PM | | procedure are in the | | | | PDT | | results section. | + +--------+ + + + documented in this encounter Results US Arterial Upper Extremity Unilateral (04/25/2017 2:09 PM PDT) + + | Specimen | + + | | + + + + + | Impressions | Performed At | + + + | 1. There is a slight narrowing in caliber of the artery at the | | | origin of the graft on grayscale images, unchanged, with there is a 3 | | | fold increase in velocity, similar to 01/24/17. No grayscale evidence | | | of significant stenosis is seen. The change in velocity may | | | similarly be due to the vessel caliber change at the origin of the | | | graft. Correlate clinically. 2. No evidence of graft thrombosis. | | | | | + + + + + + | Narrative | Performed At | + + + | HISTORY: Left axillary/brachial graft. COMPARISON: Left upper | | | chest arterial ultrasound 01/24/17. TECHNIQUE: 10 MHz linear | | | sonographic grayscale, color flow, spectral Doppler evaluation of the | | | graft in the left upper extremity. FINDINGS: Inflow left axillary | | | artery: Peak systolic velocity 52 cm/s, triphasic waveform. Proximal | | | anastomosis: 156 cm/s, triphasic. Change in caliber of the vessel, | | | although no defined significant stenosis is seen. Proximal graft: 116 | | | cm/s, triphasic. Mid graft 86 cm/s, triphasic. Distal graft: 78 | | | cm/s, triphasic. Distal anastomosis 112 cm/s, triphasic. Outflow 84 | | | cm/s, triphasic. | | + + + + + | Procedure Note | + + | Brian, Rad Conversion - 05/02/2019 6:50 PM PDT HISTORY:Left axillary/brachial graft. | | COMPARISON:Left upper chest arterial ultrasound 01/24/17. TECHNIQUE:10 MHz linear | | sonographic grayscale, color flow, spectral Doppler evaluation of the graft in the left | | upper extremity. FINDINGS:Inflow left axillary artery: Peak systolic velocity 52 cm/s, | | triphasic waveform.Proximal anastomosis: 156 cm/s, triphasic. Change in caliber of the | | vessel, although no defined significant stenosis is seen.Proximal graft: 116 cm/s, | | triphasic.Mid graft 86 cm/s, triphasic.Distal graft: 78 cm/s, triphasic.Distal | | anastomosis 112 cm/s, triphasic.Outflow 84 cm/s, triphasic. IMPRESSION: 1. There is a | | slight narrowing in caliber of the artery at the origin of the graft on grayscale | | images, unchanged, with there is a 3 fold increase in velocity, similar to 01/24/17. No | | grayscale evidence of significant stenosis is seen. The change in velocity may similarly | | be due to the vessel caliber change at the origin of the graft. Correlate clinically.2. | | No evidence of graft thrombosis. Electronically signed by Marlo Vigil MD on | | 04/25/2017 3:00 PM | |Distal graft: 78 cm/s, triphasic. | |Distal anastomosis 112 cm/s, triphasic. | |Outflow 84 cm/s, triphasic. | | | |IMPRESSION: | |1. There is a slight narrowing in caliber of the artery at the origin of the graft on rucker scale images, unchanged, with there is a 3 fold increase in velocity, similar to 01/24/17. N o grayscale evidence of significant stenosis is seen. The change in | |velocity may similarly be due to the vessel caliber change at the origin of the graft. Debi carlson clinically. | |2. No evidence of graft thrombosis. | | | | | + + documented in this encounter Visit Diagnoses Not on filedocumented in this encounter"
--- OUTSIDE RECORDS SUMMARY | ~2020-05-20 | XMS | Encounter Summary ---
Demographics + + + | Address | [address] | | | [place] [address] | + + + | Home Phone [...] Team Providers + +------+ + | Care Forklift Technician Name | Role | Phone | + +------+ + | Paul Hogan MD | PCP | | + +------+ + Encounter Details +--------+ + + + + | Date | Type | Department | Care Team | Description | +--------+ + + + + | 05/28/ | Hospital | [facility] | Aric Wilcox | S/P cervical spinal | | 2015 | Encounter | MED CTR XRAY [address] | [address] | fusion | | | | [place] | [address] [place] | | | | | [place] [address] | [address] | | | | | [phone] | | | +--------+ + + + [...] by mouth | | 0 | | 02/09/201 | | (LIPITOR) 10 mg | nightly. [...] + | XR CERVICAL SPINE 2 | Routin | 05/28/2015 | S/P cervical | Results for this | | OR 3 VIEWS | e | 12:43 PM | spinal fusion | procedure are in the | | | | PDT | | results section. | + +--------+ + + + documented in this encounter Results XR CERVICAL SPINE 2 OR 3 VIEWS (05/28/2015 12:43 PM PDT) + + | Specimen | + + | | + + + + + | Narrative | Performed At | + + + | CERVICAL SPINE: 05/28/2015 12:42 PM CLINICAL HISTORY: Postop | [facility] | | COMPARISON: 04/30/2015 FINDINGS: AP and lateral views of the | [facility] | | cervical spine. Stable anterior compression plate and screws from [facility] | | C5 to C7. Interbody bone [...] ST. | [address] | [place] | [phone] | | [facility] | | [address] | | | - IMAGING | | | | + + + + + documented in this encounter Visit Diagnoses + + | Diagnosis | + + | S/P cervical spinal fusion Arthrodesis status | + + documented in this encounter"
--- OUTSIDE RECORDS SUMMARY | ~2020-05-20 | XMS | Encounter Summary ---
Demographics + + + | Address | [address] | | | [place] [address] | + + + | Home Phone [...] Team Providers + +------+ + | Care Casing Splitter Name | Role | Phone | + [...] | | | | | | | OR | | | | | | | [...] Description | +--------+---------+ + + + | 12/13/ | Surgery | [facility] | Umer Garcia MD | L4-5 Lateral | | 2016 | | [facility] OP | [address] | Anterior Interbody | | | | [address] | [place] [address] | Fusion w/ L5-S1 | | | | Deysi Jo KAT[place]IN | [phone] | Transforaminal | | | | [phone] | | Lumbar Interbody | | | | [phone] | | Fusion | +--------+---------+ + + + Social History [...] + + + | Blood Pressure | 191/94 | 12/14/2015 6:43 PM | | | | | PDT | | + + + + + | Pulse | 87 | 12/14/2015 6:45 PM | | | | | PDT | | + + + + + | Temperature | 36.7 C (98.1 F) | 12/14/2015 6:36 PM | | | | | PDT | | + + + + + | Respiratory Rate | 19 | 12/14/2015 6:45 PM | | | | | PDT | | + + + + + | Oxygen Saturation | 100% | 12/14/2015 6:45 PM | | | | | PDT [...] might be differen t from the original. [facility] NEUROSURGERY DISCHARGE SUMMARY Patient Name: Mellisa Carrizales [...] OT. She has good support at home. ifeanyi is wanting DC today if possible. Passing [...] might be differen t from the original. [facility] PROGRESS NOTE Pt. Name/Age/: Mellisa Bryant Sjurset 80 y.o. 1935 Med. Record Number: [id number] Date of admission: 12/14/2015 Subjective: The patient [...] Electronically signed by: Aric Wilcox, 12/15/2015 7:21 [facility] documented in th is encounter H&P Notes Umer Garcia MD - [facility]14[facility]2015 3[facility] AND [...] signed by: Umer Garcia MD 12/14/2015 15:17 [facility] aUmer tenorio MD - 12/02 9:50 AM PDT Umer Garcia MD [address] [facility], [address] [place], [place] [id number] FAX: NEUROSURGERY FOLLOW-UP CHIEF COMPLAINT: Chief Complaint [...] symptoms as well. Patient states that sh ifeanyi cannot walk more than about 10 or [...] via oximetry with SpO2 >92% by 10. Mellsia will be able to don LSO independently [...] once pt is awake. Encourage ambulation to [facility] bathroom. 6. Give stool softener and laxative [...] multiple contributors. ADLs UB Dressing, Level of [place]: set up required Assistive Device: none UB Dressing Assess/Train, Position: sitting LB, Level of [place]: minimum assist (75% patient effort), set up required, supervisio n required Assistive Device: none LB Dressing Assess/Train, Position: sitting, standing LB Dressing Assess/Train, Impairments: pain Toileting, Level of [place]: supervision required, set up required Assistive Device: bedside commode Toileting Assess/Train, Position: sitting Toileting Assess/Train, Impairments: strength decreased Grooming, Level of [place]: set up required Assistive Device: none Grooming Assess/Train, Position: standing Toilet, Level of [place]: set up required Toilet, Assistive Device: 2 [...] 4 however... lan of Care - B Agustin quiros, AIR CHIPPER - 12/16/2015 4:09 AM PDTProblem: Patient Care [...] once pt is awake. Encourage ambulation to [facility] bathroom. 6. Give stool softener and laxative [...] Discectomy Fusion; Surgeon: Umer Garcia MD; Location: [facility] MAIN OR Back surgery Right Foot surgery bilateral little toes & left big toe Tonsillectomy and adenoidectomy Lumbar spine surgery Left 12/14/2015 Procedure: L4-5 Lateral Anterior Interbody Fusion w/ L5-S1 Transforaminal Lumbar Interb dominique Fusion; Surgeon: Umer Garcia MD; Location: [facility] MAIN OR Allergies Allergen Reactions Codeine [...] assess Pt's functional transfer OOB and to [facility]. She was connected to oxygen monitor machine [...] OT Equipment Recommendations: 2 wheeled walker (FWW), medication tech, shower chair, seat riser Identified Problems Needing Skilled Intervention: Generalized post-op debility, aerobic c apacity/endurance Planned Interventions:Planned Therapy Interventions: ADL retraining, transfer training, ort hotic fitting/training Patient Status/Goals Reflects last filed data of patient status; may be from multiple contributors. ADLs LB, Level of [place]: set up required Assistive Device: none LB Dressing Assess/Train, Position: sitting, standing LB Dressing Assess/Train, Impairments: pain Toileting, Level of [place]: supervision required, set up required Assistive Device: bedside commode Toileting Assess/Train, Position: sitting Toileting Assess/Train, Impairments: strength decreased Grooming, Level of [place]: set up required Assistive Device: none Grooming Assess/Train, Position: standing Transfers Toilet, Level of [place]: set up required Toilet, Assistive Device: 2 [...] voiding large amounts. Muscle strength 5/5. Pa martin using the incetive spirometer, 02 sats monitored continuosly. lan of Care - Otto Perkins, AIR CHIPPER - 12/15/2015 2:19 PM PDTProblem: Patient Care Overview (Adult) Goal: Care Team Goals & Evaluation PROBLEM-RELATED GOALS: 1. Mellisa will void within 6 hours of arriving to the floor post op. 2. Mellsia will tolerate solid food and PO pain [...] NC, using IS often on own, con tinue to monitor. lan of Care - Mariposa Costa - 12/15/2015 11:34 AM PDTDischarge Planning: Met with Mellisa this morning regarding discharge planning. Mellisa lives with her son in [place]. She will have a caregiver during the day and her so n will help out at night. She will need a FWW, which she doesn't have a preference on the [employer]. This CM will use [employer]. Faxed order and PT notes. Received the [...] once pt is awake. Encourage ambulation to [facility] bathroom. 6. Give stool softener and laxative [...] Discectomy Fusion; Surgeon: Umer Garcia MD; Location: [facility] MAIN OR Back surgery Right Foot [...] be from multiple contributors. Gait Level of [place] : supervision required, verbal cues required Assistive Device: 2 wheeled walker (FWW) Distance (feet): 350 Stairs Number of Stairs: 1 Handrail Location: right side (ascending) Level of [place]: verbal cues required, contact guard assist Technique Used: step to step (ascending), step to step (descending) Impairments: impaired balance Transfers Sit-Stand, Level of [place]: supervision required, verbal cues required Stand-Sit, Level of [place]: supervision required, verbal cues required [id number], Assistive Device: 2 wheeled walker (FWW) Impairments: strength decreased, sensation decreased, impaired balance, postural control im paired, pain Bed Mobility Roll Left, Level of [place]: not tested Scoot/Bridge, Level of [place]: verbal cues required, supervision required Supine to Sit, Level of [place]: verbal cues required, contact guard assist Sit to Supine, Level of [place]: moderate assist (50% patient effort), verbal cues [...] Activity Type: supine to sit/sit to supine [place] Level: independent Assistive Device: none Time to Achieve: 2 days Goal Status: new Transfer Training Goal, Activity Type: sit to stand/stand to sit [place] Level: modified independence Assistive Device: 2 wheeled walker (FWW) Time to Achieve: 2 days Goal Status: new Gait Training Goal, [place] Level: modified independence Assistive Device: 2 wheeled walker (FWW) Distance: 350 Time to Achieve: 2 days Goal Status: new Stairs Goal, [place] Level: supervision required Assistive Device: none Number [...] and walk around a little. Patient is Anglican and I wished her good health. Spiritual Intervention: Patient would like to get well soon and go home to her 15 year old dog Chemo. She was very polite and nice. Had a good visit with her and wished her good hea lt. Spiritual Outcomes: Patient thank me for the visit. Spiritual Goals/Follow up: Field Staff will continue to provide ongoing emotional/spiritual support for patient as requested. lan of Agustin Raymond, AIR CHIPPER - 12/15/2015 5:09 AM PDTProblem: Patient Care [...] once pt is awake. Encourage ambulation to [facility] bathroom. 6. Give stool softener and laxative [...] note might be different from the gudelia lJulio Operative Note Mellisa Bryant Sjurset 80 y.o. female 1935 [id number] Proc. Date 12/14/2015 Preop Dx Lumbar degenerative [...] Roldan Surgeon Umer Garcia MD - Primary Calender Let Off Helper [place]EL Noonan EBL 244 Findings L4-S1 DDD, [...] PEEK spacer was prepared filling it with [place]/BMP and then t amping it into the [...] signed by: Umer Garcia MD 12/14/2015 18:23 [facility] rief Op Note - Jacob Garcia MD - 12/14/2015 6:23 PM PDTFormatting of this note might be different from the origin al. Brief Operative Note Mellisa Bryant Sjurset 80 y.o. female 1935 [id number] Proc. Date 12/14/2015 Preop Dx Lumbar degenerative [...] Roldan Surgeon Umer Garcia MD - Primary Calender Let Off Helper GABRIEL Noonan EBL 244 Findings L4-S1 DDD, severe at L5-S1. B bracing. Complications none Specimens * No specimens in log * Drains LIZBETH Electronically signed by: Umer Garcia MD 12/14/2015 18:23 [facility]ron[facility] signed by Umer Garcia MD at 016 [...] + + | Performing | Address | City/State/[facility]alscode | Phone Number | | Organization | | | | + +---------+ + + | [facility] | | | | + +---------+ + + [place] Joel Corona No Charge (12/14/2015 6:07 PM [...] + | [facility] | [address] | [place] | [phone] | | [facility] | | [address] | | | - LABORATORY | | [...] | | | | | g/dL | FUNIM | | | | | | MEDICAL [...] ST. | [address] | [place], [place] | [phone] | | [facility] | | [address] | | | - LABORATORY | | [...] | non- | FILTRATION | mL/min/1.73m2 | [facility] | | | [place] | RATE,ESTIMATED | | MEDICAL | | | | mL/min/1.55h2[place] than | | CENTER - | | [...] + | [facility] | [address] | [place] | [phone] | | [facility] | | [address] | | | - LABORATORY | | [...] | | | | URI GUTIERREZ MD ([id number]) | | | | | | on [...] + | Diagnosis | + + | Other intervertebral disc degeneration of lumbar region | + + documented in this encounter Administered Medications + +--------+ +---------+------+------+ | Medication Order | MAR | Action | Dose | Rate | Site | | | Action | Date | | | | + +--------+ +---------+------+------+ | bacitracin injection PRN, | Given | 12/14/19 | 50,000 | | | | Starting 12/14/15 at 1620, | | 16 4:20 | Units | | | | Intra-op | | PM PDT | | | | + +--------+ +---------+------+------+ +---+---+ | | | +---+---+ + +-------+ +--------+---+ + | bupivacaine (liposomal) | Given | 12/14/19 | 20 mLs | | Surgical | | (EXPAREL) 1.3% injection PRN, | | 16 5:22 | | | Site | | Starting 12/14/15 at 1722, | | PM PDT | | | | | Intra-op | | | | | | + +-------+ +--------+---+ + +---+---+ | | | +---+---+ + +-------+ +--------+---+---+ | bupivacaine 0.5%-EPINEPHrine | Given | 12/14/19 | 20 mLs | | | | 1:200,000 injection PRN, | | 16 4:20 | | | | | Starting 12/14/15 at 1620, | | PM PDT | | | | | Intra-op | | | | | | + +-------+ +--------+---+---+ +---+---+ | | | +---+---+ documented in this encounter
--- OUTSIDE RECORDS SUMMARY | ~2020-05-20 | XMS | Encounter Summary ---
Demographics + + + | Address | [address] | | | [place] [address] | + + + | Home Phone [...] Team Providers + +------+ + | Care Keymodule Assembly Machine Tender Name | Role | Phone | [...] Closed | | MRI | Diagnoses | [place], | [facility] | | | | | Cervical | [facility] | | | | | spondylosis | [address] | [address] | | | | | with | [address] | [place] | | | | | myelopathy | [address]VE | [place] | | | | | S/P cervical | [place] | [address] | | | | | spinal | [address] | Phone: | | | | | fusion | Phone: | [phone] | | | | | Procedures | [phone] | Fax: | | | | | MRI Cervical | Fax: | [phone] | | | | | Spine wo | [phone] | | | | | | Contrast | | | +--------+--------+ + + + + Reason for Visit +--------+ + | Reason | Comments | +--------+ + | Other | Discuss neck pain | +--------+ + Encounter Details +--------+---------+ + + + | Date | Type | Department | Care Team | Description | +--------+---------+ + + + | 07/17/ | Office | [facility] | Aric Wilcox | Cervical spondylosis | | 2017 | Visit | NEUROSURGERY [address] | [address] | with myelopathy | | | | [address] [place], [place] | (Primary Dx); S/P | | | | [place], [place] | [address] | cervical spinal | | | | [address] | | fusion | | | | [phone] | | | +--------+---------+ + + + [...] | Blood Pressure | 160/88 | 07/17/2017 10:20 AM | | | | | PST | | + + + + + | Pulse | 76 | 07/17/2017 10:20 AM | | | | | PST [...] | 74.8 kg (164 lb 14.5 | 07/17/2017 10:20 AM | | | | oz) | PST | | + + + + + | Height | 165.1 cm (5' 5") | 07/17/2017 10:20 AM | | | | | PST | | + + + + + | Body Mass Index | 27.44 | 07/17/2017 10:20 AM | | | | | PST [...] encounter Progress Notes Aric Wilcox PA-C - 07/17/2017 10:00 AM PSTFormatting of this note might be differ ent from the original. Aric Wilcox PA-C [address] [facility], [address] [place], [place] [address] FAX: [phone] NEUROSURGERY HISTORY AND PHYSICAL EXAMINATION CHIEF COMPLAINT: Chief Complaint Patient presents with Other Discuss neck pain HISTORY OF PRESENT ILLNESS: The patient is a 82 y.o. female with the complaint of neck irma n symptoms that began several years ago. The patient describes grinding and popping of the n dorene. The patient has a history of C5-6, C6-7 Anterior Cervical Discectomy Fusion that was do ne by Dr. Garcia on 04/30/2015 for cervical myelopathy. She describes swelling of the legs diane t began this year. She was seen by her primary care provider and states furosemide and pota ssium were changed. The symptoms have been gradually worsening. She rates the pain as mild to severe. The sym ptoms are intermittent. She describes the pain as aching. The patient has fallen twice but is resistant when using a cane. These were not mechanical falls. No syncope or dizziness. She states she has three walking canes and a walker at home. Patient demonstrates understand ing in the importance of using a cane or a walker for stability. She has a history of cervi cassi myelopathy The patient describes arm symptoms that occur on primarily on the left. The arm symptoms are constant, and the symptoms travel from the neck into the shoulders. The patient also d escribes numbness of the arm and numbness of the hand. She describes having a left shoulder replacement in December of 2016 and since this surgery she's had left forearm and hand numbnes s. The patient does not report any change in bowel or bladder function recently. PAST MEDICAL HISTORY: Past Medical History: Diagnosis Date Claustrophobia Depression DVT of leg (deep venous thrombosis) (HCC) Full dentures upper & lower Gastric reflux Hyperlipidemia Hypertension Hypothyroid Migraine Neuropathy (HCC) Osteoarthritis Poor circulation Seasonal allergies Sleep apnea no CPAP PAST SURGICAL HISTORY: Past Surgical History: Procedure Laterality Date BACK SURGERY Right BLADDER REPAIR x 3 CERVICAL SPINE SURGERY N/A 04/30/2015 Procedure: C5-6, C6-7 Anterior Cervical Discectomy Fusion; Surgeon: Umer Garcia MD; Loc ation: [facility] MAIN OR FOOT SURGERY bilateral little toes & left big toe HYSTERECTOMY LUMBAR SPINE SURGERY Left 12/14/2015 Procedure: L4-5 Lateral Anterior Interbody Fusion w/ L5-S1 Transforaminal Lumbar Interbody Fusion; Surgeon: Umer Garcia MD; Location: [facility] MAIN OR SHOULDER ARTHROSCOPY Bilateral SHOULDER SURGERY Left 01/03/2017 Dr. Rausch [facility]. TONSILLECTOMY AND ADENOIDECTOMY CURRENT MEDICATIONS: Current Outpatient Prescriptions Medication Sig Dispense Refill Acetaminophen (TYLENOL ARTHRITIS PAIN PO) Take 1,000 mg by mouth 3 times daily. allopurinol (ZYLOPRIM) 300 mg tablet Take 300 mg by mouth Daily. 0 aspirin 81 mg EC tablet Take 81 mg by mouth Daily. atorvaSTATin (LIPITOR) 20 mg tablet Take 20 mg by mouth Daily. 5 Calcium Citrate-Vitamin D (CITRACAL/VITAMIN D) 250-200 MG-UNIT TABS Take by mouth 2 ti mes daily. carbidopa-levodopa (SINEMET) 10-100 mg per tablet Take 1 tablet by mouth Daily. clopidogrel (PLAVIX) 75 mg tablet Take 75 mg by mouth Daily. Cyanocobalamin (VITAMIN B [...] 600 mg by mouth 3 times daily.) levothyroxine (SYNTHROID, LEVOTHROID) 25 mcg tablet Take 25 mcg by mouth every morning (before breakfast). losartan (COZAAR) 100 MG tablet Take 100 mg by mouth Daily. 6 melatonin 5 mg tablet Take 10 mg by mouth nightly. omeprazole (PRILOSEC) 20 mg capsule Take 20 mg by mouth Daily. oxyCODONE-acetaminophen (PERCOCET) 10-325 mg per tablet Take 1 tablet by mouth as neede d. paroxetine (PAXIL) 30 MG tablet Take 30 [...] no night sweats, no anemia, + fatigue, no recent profound weight ghulam nges. EYES: No eye problems, no use of corrective lenses, no eye injury, no double vision, no bl indness. EARS, NOSE, AND THROAT: No changes in taste or smell, no hearing difficulty, no ringing in the ears, no ear drainage, no dizziness, no voice changes, no difficulty swallowing, no sig nificant snoring, no sleep apnea, no sinus problems, no major dental work. NEUROLOGICALLY: Please see the review of systems discussed above in the history of present illness. In addition, the patient has pain in neck and back. PSYCHIATRIC: + depression, + sleep disorders, + anxiety, no bipolar disorder, no psychotic episodes. CARDIOVASCULAR: No heart attacks, + heart murmur, no heart fluttering, no chest pain, + an kle swelling. LUNG DISEASE: No shortness of breath, no cough, no tuberculosis, no bloody cough, no asth ma, no emphysema/COPD. GASTROINTESTINAL: No bowel disease, no nausea or vomiting, no rectal bleeding, no constipa tion, no stool incontinence, no liver disease, no gallbladder disease, no abdominal pain, no ulcers. KIDNEY DISEASE: + urinary frequency, no painful or difficult urination, + incontinence. ENDOCRINE: No diabetes, + thyroid disease, no osteopenia or osteoporosis, no breast draina ge. SKIN: No breast lumps, no skin changes, no rashes, no itches. HEMATOLOGIC/LYMPHATIC: No enlarged lymph nodes, no easy or unusual bleeding, no personal h istory of cancer. RHEUMATOLOGIC: + joint arthritis, no rheumatoid arthritis. PHYSICAL EXAMINATION: Blood pressure 160/88, pulse 76, height 1.651 m (5' 5"), weight 74.8 kg (164 lb 14.5 oz), n ot currently . Body mass index is 27.44 kg/m. GENERAL: Mellisa Carrizales is in no [...] masses. The patient is not o bese. SPINE: There is tenderness in the midline of the cervical spine at the C-4, C-5 and C-6. Range of motion of the neck is limited. Decrease range of motion upon extension. Flexion and extension of the neck does cause discomfort. EXTREMITIES: No cyanosis or clubbing Distal pulses are palpable. Bilateral trace edema wor se on the left than the right. NEUROLOGICAL EXAM: MENTAL STATUS: The patient is awake, alert, and oriented. She follows simple and complex commands. Her speech is fluent, she comprehends speech well, and she repeats well. She has no apparent deficits with short or usp memory. CRANIAL NERVES: II: Acuity is intact. [...] Intrinsics 5 5 Ulnar Intrinsics 5 5 Industrial Welder Strength 5 5 Hip Flexion 5 5 Hip Extension 5 5 Knee Flexion 5 5 Knee Extension 5 5 Dorsiflexion 5 5 Extensor Hallicus Longus 5 5 Plantarflexion 5 5 SENSORY EXAM: Decreased of the left radial lateral arm. Decreased sensation to the left ant erior navarro. REFLEXES: (2 OR 2+ IS NORMAL) REFLEX: RIGHT LEFT BICEPS 2 2 BRACHIORADIALIS 2 2 TRICEPS 2 2 PATELLAR 2 2 ACHILLES 2 2 WILCOX'S ABSENT ABSENT PLANTAR DOWNGOING DOWNGOING GAIT: Gait is steady. PERIPHERAL NERVE/MISC: Tinel is negative at the wrists and elbows bilaterally. Phalen is negative. Straight leg raise is negative bilaterally. Sandeep's test of the hips is negative bilaterally. ASSESSMENT: NEUROSURGICAL DIAGNOSES: Encounter Diagnoses Name Primary? Cervical spondylosis with myelopathy Yes S/P cervical spinal fusion GENERAL DIAGNOSES: Past Medical History: Diagnosis Date Claustrophobia Depression DVT of leg (deep venous thrombosis) (HCC) Full dentures upper & lower Gastric reflux Hyperlipidemia Hypertension Hypothyroid Migraine Neuropathy (HCC) Osteoarthritis Poor circulation Seasonal allergies Sleep apnea no CPAP PLAN: Mellisa Bryant All presented today, and it was a pleasure seeing this patient and assessing her neurologic problems. The patient has primarily neck pain. She has some left arm sensory abnormalities which are mild and present since her surgery on her shoulder. She continues to have balance disturba nce and fallen twice. She thinks her balance has been somewhat progressive.. I had a lengthy discussion with the patient about her options for care including surgical a nd non-surgical options. I would like the patient have an MRI of her cervical spine to look at her adjacent segment to be certain there is no significant central spinal stenosis. X-rays will evaluate for ins tability as well as stability of her hardware and ongoing effusion. She will contact us whe n these testing has been completed so that we can review the results. We discussed returnin alvin to physical therapy for her neck as well as balance issues. There are issues on the MRI t hat we need to discuss, we will ask her to return to the office to review the results. I sp ent a significant amount of time talking about fall prevention and use of canes. We discuss ed removing all throw rugs and obstacles in her house. ELECTRONICALLY SIGNED BY: Aric Wilcox PA-C, 07/17/2017 11:07 documented in this encounter Plan of Treatment + +---------+--------+ + + | Name | Type | Priori | Associated Diagnoses | Order Schedule | | | | ty | | | + +---------+--------+ + + | MRI Cervical Spine | Imaging | Routin | Cervical | Expected: 07/27/2017 | | wo Contrast | | e | spondylosis with | (Approximate), | | | | | myelopathy S/P | Expires: 07/16/2018 | | | | | cervical spinal | | | | | | fusion | | + +---------+--------+ + + | XR Cervical Spine 4 | Imaging | Routin | Cervical | Expected: 07/27/2017 | | or 5 Vws | | e | spondylosis with | (Approximate), | | | | | myelopathy S/P | Expires: 07/16/2018 | | | | | cervical spinal | | | | | | fusion | | + +---------+--------+ + + documented as of this encounter Visit Diagnoses + + | Diagnosis | + + | Cervical spondylosis with myelopathy - Primary | + + | S/P cervical spinal fusion Arthrodesis status | + + documented in this encounter
--- OUTSIDE RECORDS SUMMARY | ~2020-05-20 | XMS | Encounter Summary ---
Demographics + + + | Address | [address] | | | [place] [address] | + + + | Home Phone | | + + + | Preferred Language | Unknown | + + + | Marital Status | | + + + | Anabaptist Affiliation | [id number] | + + + | Race | White | + + + | Ethnic Group | Not or | + + + Author + + + | Author | [facility] | | | and [place] | + + + | Organization | [facility] | | [...] Team Providers + +------+ + | Care Gelatin Maker Utility Name | Role | Phone | + [...] | | [address] | [place] [address] | instructions) | | | | [place] | [phone] | | | | | [address] | | | | | | [phone] | | | +--------+ + + + [...] encounter Miscellaneous Notes Telephone Encounter - Shirley Shlel - 12/13/2015 5:18 PM PDTDue to changes [...] do not wear jewelry, contact lenses, nail ghanaian (on fingers or toes), or make-up to [...]
--- OUTSIDE RECORDS SUMMARY | ~2020-05-20 | XMS | Encounter Summary ---
Demographics + + + | Address | [address] | | | [place] [address] | + + + | Home Phone [...] Team Providers + +------+ + | Care Dry Heat Room Attendant Name | Role | Phone | + [...] | | | | | [place] [address] | [address] | | | | | [phone] | | | +--------+ + + + [...] or pneumothorax. Dictated and Signed by: Abdirashid Sanchez, | | | Electronically signed: 06/21/2019 2:31 [...]
--- OUTSIDE RECORDS SUMMARY | ~2020-05-20 | XMS | Encounter Summary ---
Demographics + + + | Address | [address] | | | [place] [address] | + + + | Home Phone | | + + + | Preferred Language | Unknown | + + + | Marital Status | | + + + | Gnosticist Affiliation | 1028 | + + + | Race | White | + + + | Ethnic Group | Not or | + + + Author + + + | Author | [facility] | | | and [place] | + + + | Organization | [facility] | [...] Team Providers + +------+ + | Care Steamfitter Apprentice Name | Role | Phone | [...] | 08/17/ | Telephone | [facility] [place] | Aric Wilcox | Imaging Only | | 2017 | | NEUROSURGERY [address] | [address] | | | | | [address] | [address] [place] | | | | | [place] | [id number] | | | | | [address] | | | | | | [phone] | | | +--------+ + + + [...] Notes Telephone Encounter - Gallardo, Lillian M, Conveyor Loader - 09/26/2017 2:21 PM PSTPatient's son called in and I was able to relay message. He will update patient. No further action required TTelephone Encounter - Lillian Gallardo Conveyor Loader - 09/26/2017 2:08 PM PSTCalled pa tient [...] Thank you elephone Encounter - Barbara Childs Conveyor Loader - 09/25/2017 7:59 AM PSTCervical XR available for review on isite. Elec tronically signed by Marcia Finn at 09/25/2017 8:00 AM PSTTelephone Encounter - Lillian Narayanan Conveyor Loader - 09/18/2017 11:06 AM PSTCalled [facility] to verify that cervical [facility] was completed. Patient completed on 09/13/2017 imaging fax requested for disc. Reminder set to follow up. elephone Encounter - Barbara Childs Medical Assistant - 09/01/2017 10:37 AM PSTCalled to remind the patient that she can complete her c ervical spine XR at [facility]. I spoke with the patient's [...] message to her mother. elephone Encounter - Lillian Gallardo Conveyor Loader - 08/21/2017 3:41 PM PSTCalled patient and was able to relay Darnell's message. Patient is cu rious if she still needs to get the XR C-Spine as ordered? [facility]. I have faxed orders to the facility [...] 8:37 AM PSTTelephone Encounter - Barbara Childs Conveyor Loader - 08/17/2017 11:05 AM PSTCalled [facility] to [facility] the [facility]. Imaging completed 08/08/17. Imaging pushed to is ite 08/17/17. documented in this encounter Plan of Treatment Not on filedocumented as of this encounter Visit Diagnoses Not on filedocumented in this encounter"
--- OUTSIDE RECORDS SUMMARY | ~2020-05-20 | XMS | Encounter Summary ---
Demographics + + + | Address | [address] | | | [place] [address] | + + + | Home Phone | | + + + | Preferred Language | Unknown | + + + | Marital Status | | + + + | Hindu Affiliation | 1028 | + + + [...] Providers + +------+ + | Care Software Writer Name | Role | Phone | + +------+ + | Paul Hogan MD | PCP | | + +------+ + Encounter Details +--------+ + + + + | Date | Type | Department | Care Team | Description | +--------+ + + + + | 04/24/ | Preadmit | [facility] | Umer Garcia MD | | | 2015 | Visit | MED CTR [facility] | [address] | | | | | CLINIC [address] | [place] [address] | | | | | [place] | [phone] | | | | | [address] | | | | | | [phone] | | | +--------+ + + + [...]
--- OUTSIDE RECORDS SUMMARY | ~2020-05-20 | XMS | Encounter Summary ---
Demographics + + + | Address | [address] | | | [place] [address] | + + + | Home Phone [...] Team Providers + +------+ + | Care Product Evangelist Name | Role | Phone | + +------+ + | Ethan Solomon MD | PCP | | + +------+ + Encounter Details +--------+ + + + + | Date | Type | Department | Care Team | Description | +--------+ + + + + | 01/23/ | Hospital | [facility] | Conversion | Injury of left | | 2018 | Encounter | [facility] | Transaction, | axillary artery, | | | | [address] | Provider Unknown | subsequent encounter | | | | [address] | | | | | | [place], [place] | (Fax) | | | | | [address] | | | | | | [phone] | | | +--------+ + + + [...]
--- OUTSIDE RECORDS SUMMARY | ~2020-05-20 | XMS | Encounter Summary ---
Demographics + + + | Address | [address] | | | [place] [address] | + + + | Home Phone [...] + + | Author | [facility] | | | and [place] | + + + | Organization | [facility] | | | [...] Team Providers + +------+ + | Care Head Cook Name | Role | Phone | + +------+ + | Paul Hogan MD | PCP | | + +------+ + Encounter Details +--------+ + + + + | Date | Type | Department | Care Team | Description | +--------+ + + + + | 01/18/ | Hospital | [facility] | [place], Aric | Lumbar | | 2016 | Encounter | MED CTR XRAY [address] | [address] | radiculopathy; S/P | | | | [place] | [address] [place] [address] | lumbar fusion | | | | [place], [place] [address] | [address] | | | | | [phone] | | | +--------+ + + + [...] [address] | [place] | [phone] | | [facility] | | [address] | | | - IMAGING | | | | + + + + + documented in this encounter Visit Diagnoses + + | Diagnosis | + + | Lumbar radiculopathy Thoracic or lumbosacral neuritis or radiculitis, unspecified | + + | S/P lumbar fusion Arthrodesis status | + + documented in this encounter"
--- OUTSIDE RECORDS SUMMARY | ~2020-05-20 | XMS | Encounter Summary ---
Demographics + + + | Address | [address] [place] [address] | | | [place] [address] | + + + | Home Phone [...] Team Providers + +------+ + | Care Key Account Representative Name | Role | Phone | [...] | | [address] | [place] [address] | | | | | [place] | [phone] | | | | | [address] | | | | | | [phone] | | | +--------+ + + + [...] SURGICAL ISSUES 1.Steri-strips/outer bandages have been removed. Coleman/sutures that need to be removed n o. [...]
--- OUTSIDE RECORDS SUMMARY | ~2020-05-20 | XMS | Encounter Summary ---
Demographics + + + | Address | [address] | | | [place] [address] | + + + | Home Phone [...] Team Providers + +------+ + | Care Retreader Name | Role | Phone | + +------+ + | Pual Hogan MD | PCP | | + +------+ + Reason for Visit + + + | Reason | Comments | + + + | Follow-up | Post op | + + + Encounter Details +--------+---------+ + + + | Date | Type | Department | Care Team | Description | +--------+---------+ + + + | 09/25/ | Office | [facility] | Mau Alvarez, | S/P cervical spinal | | 2016 | Visit | NEUR[address]URGERY [address] | PA-C [address] | fusion (Primary Dx); | | | | [address] | [address] [place] | Lumbar | | | | [place], [place] | [place] [address] | radiculopathy; Facet | | | | [address] | [phone] | arthropathy, lumbar | | | | [phone] | | | +--------+---------+ + + + [...] f rom the original. [address] [facility], [address] [place], [place] [address] FAX: NEUROSURGERY FOLLOW-UP CHIEF COMPLAINT: Chief Complaint [...]
--- OUTSIDE RECORDS SUMMARY | ~2020-05-20 | XMS | Encounter Summary ---
Demographics + + + | Address | [address] | | | [place] [address] | + + + | Home Phone | | + + + | Preferred Language | Unknown | + + + | Marital Status | | + + + | Congregation Affiliation | 1028 | + + + | Race | White | + + + | Ethnic Group | Not or | + + + Author + + + | Author | [facility] | | | and [place] | + + + | Organization | [facility] | | | [...] Team Providers + +------+ + | Care Trombone Slide Assembler Name | Role | Phone | + +------+ + | Paul Hogan MD | PCP | | + +------+ + Reason for Visit +--------+--------+ + | Reason | Onset | Comments | | | Date | | +--------+--------+ + | Other | 04/09/ | | | | 2014 | | +--------+--------+ + Encounter Details +--------+ + + + + | Date | Type | Department | Care Team | Description | +--------+ + + + + | 04/09/ | Telephone | [facility] [place] | Umer Garcia MD | Other | | 2015 | | NEUROSUR[address]ERY [address] | [address] | | | | | [address] | [place] [address] | | | | | [place] | [phone] | | | | | [address] | | | | | | [phone] | | | +--------+ + + + [...] Telephone Encounter - Shirley Shell - 04/09/2015 11:52 AM PDTFollow-up scheduled with Dr. Garcia on 04/24/15. elephone Encounter - Apple Aguilar - 04/09/2015 10:54 AM PDTPatient called and would lik e to discuss her MRI. Patient states there is something wrong and possibly needs another to t. Patient would like a call back. 10 :55 AM PDTdocumented in this encounter Plan of Treatment Not on filedocumented as of this encounter Visit Diagnoses Not on filedocumented in this encounter"
--- OUTSIDE RECORDS SUMMARY | ~2020-05-20 | XMS | Encounter Summary ---
Demographics + + + | Address | [address] | | | [place] [address] | + + + | Home Phone | | + + + | Preferred Language | Unknown | + + + | Marital Status | | + + + | Scientology Affiliation | 1028 | + + + | Race | White | + + + | Ethnic Group | Not or | + + + Author + + + | Author | [facility] | | | and [place] | + + + | Organization | [facility] | | [...] Team Providers + +------+ + | Care Pipefitter Helper Name | Role | Phone | + +------+ + | Paul Hogan MD | PCP | | + +------+ + Encounter Details +--------+ + + + + | Date | Type | Department | Care Team | Description | +--------+ + + + + | 10/20/ | Hospital | [facility] | Umer Garcia MD | S/P cervical spinal | | 2017 | Encounter | MED CTR XRAY [address] | [address] | fusion | | | | [place] | [place] [address] | | | | | [place] [address] | [phone] | | | | | [phone] | | | +--------+ + + + [...] XR CERVICAL SPINE 2 | Routin | 10/20/2016 | S/P cervical | Results for this | | OR 3 VIEWS | e | 9:17 AM | spinal fusion | procedure are in the | | | | PST | | results section. | + +--------+ + + + documented in this encounter Results XR Cervical Spine 2 or 3 Views (10/20/2016 9:17 AM PST) + + | Specimen | + + | | + + + + + | Narrative | Performed At | + + + | XR CERVICAL SPINE 2 OR 3 VIEWS 10/20/2016 9:17 AM HISTORY: Postop. | [facility] | | COMPARISON: Multiple priors. FINDINGS: Visualized skull base | [facility] | | and facial structures demonstrate no acute findings. Prevertebral | [facility]ICAL [facility]ENTER | | soft tissues are normal. Again visualized are hardware for | - IMAGING | | anterior fusion from C5 through C7 with interbody graft material at | | | these levels. The hardware are intact. Mild degenerative change are | | | present of the anterior atlantoaxial joint. There is mild cervical | | | spondylosis. Minimal anterolisthesis is present of C3 over C4. Bone | | | mineralization is normal. The dens is normal. Vertebral body height | | | are preserved with no evidence for compression fractures. Disc height | | | are maintained. Multilevel facet sclerosis and hypertrophy are seen. | | | Soft tissue structures are unremarkable. Visualized upper chest | | | demonstrates no acute findings. IMPRESSION - Stable anterior | | | fusion from C5 through C7. Dictated and Signed by: John Toney | | | MD Electronically signed: 10/20/2016 10:37 AM | | + + + + + | Procedure Note | + + | Brian, Rad Results In - 10/20/2016 10:40 AM PST XR CERVICAL SPINE 2 OR 3 VIEWS 10/20/2016 | | 9:17 AMHISTORY: Postop.COMPARISON: Multiple priors.FINDINGS:Visualized skull base and | | facial structures demonstrate no acute findings.Prevertebral soft tissues are | | normal.Again visualized are hardware for anterior fusion from C5 through C7 | | withinterbody graft material at these levels. The hardware are intact. Milddegenerative | | change are present of the anterior atlantoaxial joint. There ismild cervical | | spondylosis. Minimal anterolisthesis is present of C3 over C4.Bone mineralization is | | normal. The dens is normal. Vertebral body height arepreserved with no evidence for | | compression fractures. Disc height aremaintained. Multilevel facet sclerosis and | | hypertrophy are seen. Soft tissuestructures are unremarkable. Visualized upper chest | | demonstrates no acutefindings. IMPRESSION -Stable anterior fusion from C5 through | | C7.Dictated and Signed by: John Toney MD Electronically signed: 10/20/2016 10:37 AM | |degenerative change are present of the anterior atlantoaxial joint. There is | |mild cervical spondylosis. Minimal anterolisthesis is present of C3 over C4. | |Bone mineralization is normal. The dens is normal. Vertebral body height are | |preserved with no evidence for compression fractures. Disc height are | |maintained. Multilevel facet sclerosis and hypertrophy are seen. Soft tissue | |structures are unremarkable. Visualized upper chest demonstrates no acute | |findings. | | | |IMPRESSION - | |Stable anterior fusion from C5 through C7. | | | |Dictated and Signed by: John Toney MD | | Electronically signed: 10/20/2016 10:37 AM | + + + + + + + | Performing | Address | City[facility]State[facility] | Phone Number | | Organization | | | | + + + + + | [facility] [facility] | [address] | [place] | [phone] | | [facility] | | [address] | | | - IMAGING | | | | + + + + + documented in this encounter Visit Diagnoses + + | Diagnosis | + + | S/P cervical spinal fusion Arthrodesis status | + + documented in this encounter"
--- OUTSIDE RECORDS SUMMARY | ~2020-05-20 | XMS | Encounter Summary ---
Demographics + + + | Address | [address] | | | [place] [address] | + + + | Home Phone [...] Team Providers + +------+ + | Care Phosphoric Acid Supervisor Name | Role | Phone | [...] | | [address] | [address] [place], | | | | | [place], [place] | [place] [address] | | | | | [address] | [phone] | | | | | [phone] | | | +--------+ + + + [...] SHOULDER LEFT 2 + | Routin | 04/10/2017 | | Results for this | | VW | e | 4:23 PM | | procedure are in the | | | | PDT | | results section. | + +--------+ + + + documented in this encounter Results XR Shoulder Left 2 + Vw (04/10/2017 4:23 PM PDT) + + | Specimen | [...] | | | head osteophyte. Visualized lung sneed are clear. 4 view cervical | | [...] SOUZA MD has created this entry using [employer] | | | Medical Voice Recognition software and [employer]ention macros. The entry | | | has [...] has | | created this entry using [employer] software and [employer]ention | | macros. The entry has been [...] SOUZA MD has created this entry using [employer] | |Recognition software and [employer]ention macros. The entry has been reviewed and | |there may still exist sound alike word errors. | | | + + documented in this encounter Visit Diagnoses Not on filedocumented in this encounter"
--- OUTSIDE RECORDS SUMMARY | ~2020-05-20 | XMS | Encounter Summary ---
Demographics + + + | Address | [address] | | | [place] [address] | + + + | Home Phone [...] Team Providers + +------+ + | Care Nuclear Criticality Safety Engineer Name | Role | Phone | + +------+ + | Ethan Solomon MD | PCP | | + +------+ + Encounter Details +--------+ + + + + | Date | Type | Department | Care Team | Description | +--------+ + + + + | 08/15/ | Orders Only | [facility] | Sarkis Garcia DNP | | | 2017 | | VASCULAR SURGERY | [address] [place] | | | | | [address] | [place], [place] | | | | | [address] | [address] | | | | | [place], [place] | | | | | | [address] | | | | | | [phone] | | | +--------+ + + + [...] PDT MELLISA HERNANDEZ CAROTID DOPPLER, | | [id number]/5/2018 3:24 PM HISTORY:83 years. Female. Carotid disease [...]
--- OUTSIDE RECORDS SUMMARY | ~2020-05-20 | XMS | Encounter Summary ---
Demographics + + + | Address | [address] | | | [place] [address] | + + + | Home Phone | | + + + | Preferred Language | Unknown | + + + | Marital Status | | + + + | Congregational Affiliation | 1028 | + + + | Race | White | + + + | Ethnic Group | Not or | + + + Author + + + | Author | [facility] | | | and [place] | + + + | Organization | [facility] | | | [...] Team Providers + +------+ + | Care Diet Supervisor Name | Role | Phone | [...] + + | 03/05/ | Telephone | [facility] | Umer Garcia MD | Pain Management; | | 2017 | | NEUROSURGERY [address] | [address] | Back Pain; Neck Pain | | | | [address] | [place] [address] | | | | | [place] | [phone] | | | | | [address] | | | | | | [phone] | | | +--------+ + + + [...] Anterior Cervical Discectomy Fusion Last seen 07/17/2017 ([facility])- ordered cervical spine XR and MRI Imaging reviewed: MRI ([facility]) 08/18/2017, "Her MRI does not show any significant stenosis. This is great news"; XR cervical ([facility]) 09/26/2017 "The patient's hardware and fusion appeare [...] it on every time she sees her (carolian pro). Patient acknowledged that nobody told her [...] TID Lyrica 150 mg BID (ordered by credit products officer for neuropathy) Not taking any Percocet (for [...] placed referral to another pain clinic in [place], but patient did not want to trave l that far and did not establish care with a new pain specialist Patient denies any falls or injuries since last OV; denies changes in activities Acknowledges recurrent UTI's; intermittent diarrhea/ constipation (PCP evaluation/ treatmen t PRN) Surgeon that repaired artery damaged during left shoulder surgery agreed to refer patient t o the [facility] pain clinic. Patient stated that she has not heard back from them. Encouraged patient to f/u with that provider for status update on referral and with [facility] pain clinic to schedule appointment to establish [...] and agreed to f/u on referral to [facility] pain clinic. Advised patient that this message would be sent to providers as a FYI and if they are able to advise further we will call her back with their advice. documented in this e ncounter Plan of Treatment Not on filedocumented as of this encounter Visit Diagnoses Not on filedocumented in this encounter
--- OUTSIDE RECORDS SUMMARY | ~2020-05-20 | XMS | Encounter Summary ---
Demographics + + + | Address | [address] | | | [place] [address] | + + + | Home Phone [...] Team Providers + +------+ + | Care Skills Instructor Name | Role | Phone | + +------+ + | Ethan Solomon MD | PCP | | + +------+ + Reason for Visit + + + | Reason | Comments | + + + | Follow-up | Exam 3 - Patient was seen at [facility] on 06/14 and was | | | diagnosed with pneumonia. She continues to have sharp right | | | sided chest pain that increases with inspiration. She also states | | | she fell recently onto her right shoulder/chest area. | + + + Encounter Details +--------+---------+ + + + | Date | Type | Department | Care Team | Description | +--------+---------+ + + + | 06/21/ | Office | [facility] | Khalida Gonzalez | Other chest pain, | | 2019 | Visit | CARE [address] | MD Matty [address] | right anterior | | | | [place] | [place] | (Primary Dx); | | | | [id number] | [id number] | Abnormal EKG; | | | | [phone] | | History of fall | +--------+---------+ + + + Social History [...] + + + | Blood Pressure | 130/59 | 06/21/2019 12:36 PM | | | | | PDT | | + + + + + | Pulse | 83 | 06/21/2019 12:36 PM | | | | | PDT | | + + + + + | Temperature | 36.3 C (97.3 F) | 06/21/2019 12:36 PM | | | | | PDT | | + + + + + | Respiratory Rate | 20 | 06/21/2019 12:36 PM | | | | | PDT | | + + + + + | Oxygen Saturation | 95% | 06/21/2019 12:36 PM | | | | | PDT | | + + + + + | Inhaled Oxygen | - | - | | | Concentration | | | | + + + + + | Weight | - | - | | + + + + + | Height | - | - | | + + + + + | Body Mass Index | - | - | | + [...] of this encounter Patient Instructions Patient Instructions Khalida Gonzalez MD - 06/21/2019 12:15 PM PDTTransferred [facility]. documented in this encounter Progress Notes Thuy Coy RN - 06/21/2019 12:15 PM PDTVerified name and date of of patient before provider orders were carried out. Venipuncture to LAC x 1 attempt, successful. Patient tolerated well. Thuy Coy RN chTrena busby MD - 06/21/2019 12:15 PM PDTFormatting of this note might be different from the gudelia cox 06/21/2019 Mellisa Carrizales 1935 Assessment: 1. Other chest pain, right anterior ECG 12 lead XR Ribs Right w PA Chest D-Dimer Troponin I CBC with Differential aspirin chewable tablet 324 mg 2. Abnormal EKG 3. History of fall Typical right anterior chest pain with new anterior T wave inversions suspicious for acute anterior ischemia. She was given aspirin 324 mg chewed and transferred by EMS to the ED. T his was discussed with the ED provider on duty. Plan: Transferred to [facility] ED by EMS for probable ACS. The risks and benefits, including potential side effects of medication changes, have been d iscussed with the patient. We agreed on implementing the current plan. The note may have been dictated using [employer] voice recognition software. It may have not b een proofread in entirety. Minor errors in grammar may occur. History: Mellisa Carrizales is a 84 y.o. female here for Follow-up (Exam 3 - Patient was seen at [facility] on 06/14 and was diagnosed with pneumonia. She continues to have sharp right sided chest pain that increases with inspiration. She also states she fell recently onto her right shoulder/chest area. ) 84-year-old female from [place] with memory difficulty who was dropped off by her son for evaluation of right anterior chest discomfort. She states that she was seen at [facility] on June 14 and diagnosed with a chest infection. She brings her AVS which reveals a presentation for weakness and a dismissal diagnosis of GERD, hip pain and atherosclerosis b ased on x-ray results. She was treated with Tylenol and was specifically told that she had no evidence of lung infection. She presents with sharp, transient right upper anterior ches t pain associated with movement and deep breathing. She does not recall the fall but was to ld by her son, with whom she lives, that she fell in late May. He is not here during the visit and she has poor memory. Pain is worse to get in and out of bed. She denies any cough, sputum production or hemoptysis. No fever, chills, nausea or vomiting. Appetite's b een a little poor lately. She has no URI symptoms of sore throat, nasal congestion, earache or eye drainage. She denies history of DVT and PE. She had vein stripping in the past. N o lower extremity edema. Noncompliant with her Lasix without worsening. Never smoker witho ut history of asthma or COPD. She has BILLIE. Denies shortness of breath, dyspnea on exertion , heart palpitations, racing and dizziness. Denies history of breast lumps or cancer. No o ther complaints. Once her son returned, he reports cancellation of her anticipated hip surgery for last week due to a heart issue found on preop evaluation. She was referred to the mover helper in [facility] to be seen in August. Current medications, past medical, surgical, family and social histories were reviewed and updated where appropriate. Review of Systems Constitutional: Positive for malaise/fatigue. Negative for chills, diaphoresis and fever. HENT: Negative for congestion, ear pain, sinus pain and sore throat. Eyes: Negative for double vision, pain and discharge. Respiratory: Negative for cough, hemoptysis, sputum production, shortness of breath and whe ezing. Cardiovascular: Positive for chest pain. Negative for palpitations, orthopnea, claudication , leg swelling and PND. Gastrointestinal: Negative for abdominal pain, blood in stool, constipation, diarrhea, hear tburn, nausea and vomiting. Genitourinary: Negative for dysuria, frequency and urgency. Musculoskeletal: Positive for back pain and falls. Negative for myalgias and neck pain. Skin: Negative for itching and rash. Neurological: Positive for seizures and weakness. Negative for dizziness, tingling, sensory change, speech change and headaches. Endo/Heme/Allergies: Does not bruise/bleed easily. Psychiatric/Behavioral: Positive for memory loss. Negative for depression. Allergies Allergen Reactions Codeine Sulfate Nausea And Vomiting Penicillin V Potassium Swelling BP 130/59 | Pulse 83 | Temp 36.3 C (97.3 F) (Temporal) | Resp 20 | SpO2 95% Physical exam: Pleasantly confused, alert and conversant, elderly female who presents in a wheelchair. Sh e is breathing comfortably and speaking in full sentences. HEENT: Waxy EACs, PERRLA, EOMI, pink conjunctiva without exudates. Nares clear. Cold sore s on her lips, moist oral membranes, pharynx unremarkable. Neck: Supple without adenopathy or JVD. Chest: Reproducible tenderness on the right upper anterior chest along the costochondral ju nctions without erythema, warmth, edema, abrasion or ecchymosis. Minimal enhancement of irma n with AP and yebo-bb-[id number] pressure of the thorax. Right breast without dimpling, nipple in version or nipple discharge. No dominant masses or axillary adenopathy. No supraclavicular nodes. Lungs: Few bibasilar crackles with deep inspiration improved with coughing, otherwise clear without rales, rhonchi or wheezes. Unremarkable percussion exam. Cardiac: Quiet precordium, regular rhythm with 1/6 systolic ejection murmur. No S3 gallop. Abdomen: Midline scar, active bowel sounds, soft and nontender. No organomegaly. Back: Kyphotic posture. No CVA percussion tenderness. Extremities: Norene, warm and dry. No dependent edema. Calves are soft and supple without c ords. Negative Homans sign. Neurologic: Pleasantly confused. No facial droop or slurred speech. Diffuse lower extremi ty weakness requiring assistance when ascending the exam table. Nonfocal sensorimotor exam. Recent Results (from the past 24 hour(s)) ECG 12 lead Result Value Ref Range VENTRICULAR RATE EKG 78 BPM ATRIAL RATE 78 BPM P-R INTERVAL 182 ms QRS DURATION 112 ms Q-T INTERVAL 412 ms Q-T INTERVAL (CORRECTED) 469 ms P WAVE AXIS -3 degrees QRS AXIS -39 degrees T AXIS -9 degrees INTERPRETATION TEXT Normal sinus rhythm Left axis deviation Pulmonary disease pattern Incomplete right bundle branch block Minimal voltage criteria for LVH, may be normal variant T wave abnormality, consider anterior ischemia Abnormal ECG When compared with ECG of 14-DEC-2015 13:52, No significant change was found When compared to ECG sent from [facility] in [place], [place] dated 06/11/19, There is ne w T wave inversion and poor R wave progression in V2-4. Confirmed by LUIS GONSALEZ, KHALIDA ([id number]) on 06/21/2019 2:00:36 PM D-Dimer Result Value Ref Range D-DIMER, QUANTITATIVE 1,760 (H) 0 - 500 D-DU ng/ml Troponin I Result Value Ref Range Troponin I <0.02 <=0.06 ng/mL CBC with Differential Result Value Ref Range WBC 9.1 4.0 - 11.0 K/uL RBC 3.51 (L) 3.70 - 5.20 M/uL Hemoglobin 11.2 (L) 11.5 - 16.0 g/dL Hematocrit 33.1 (L) 34.0 - 47.0 % MCV 94.3 83.0 - 101.0 fL MCH 31.9 28.0 - 35.0 pg MCHC 33.8 32.0 - 36.0 g/dL RDW-CV 14.4 <15.0 % RDW-SD 50.6 (H) 35.1 - 46.3 fL Platelet Count 380 140 - 440 K/uL MPV 9.1 6.5 - 12.4 fL % Neutrophils 73.5 45.0 - 82.0 % % Lymphocytes 12.1 (L) 20.0 - 45.0 % % Monocytes 8.4 4.0 - 12.0 % % Eosinophils 0.8 0.0 - 5.0 % % Basophils 0.1 0.0 - 1.0 % % Immature Granulocytes 5.1 (H) 0.0 - 0.4 % Absolute Neutrophils 6.69 1.80 - 8.50 K/uL Absolute Lymphocytes 1.10 0.60 - 3.20 K/uL Absolute Monocytes 0.76 0.00 - 1.00 K/uL Absolute Eosinophils 0.07 0.00 - 0.40 K/uL Absolute Basophils 0.01 0.00 - 0.10 K/uL Absolute Immature Granulocytes 0.46 (H) 0.00 - 0.03 K/uL Khalida Gonzalez MD documented i n this encounter Plan of [...] TROPONIN I | STAT | 06/21/2019 | Other chest pain, | Results for this | | | | 1:15 PM | right anterior | procedure are in the | | | | PDT | | results section. | + +--------+ + + + | D-DIMER | STAT | 06/21/2019 | Other chest pain, | Results for this | | | | 1:15 PM | right anterior | procedure are in the | | | | PDT | | results section. | + +--------+ + + + | CBC WITH | STAT | 06/21/2019 | Other chest pain, | Results for this | | DIFFERENTIAL | | 1:15 PM | right anterior | procedure are in the | | | | PDT | | results section. | + +--------+ + + + | ECG 12 LEAD | Routin | 06/21/2019 | Other chest pain, | Results for this | | | e | 1:14 PM | right anterior | procedure are [...] | | | + +---------+ + + CBC with Differential (06/21/2019 1:15 PM PDT) + + + + + + | Component | Value | Ref Range | Performed | Pathologist | | | | | At | Signature | + + + + + + | White Blood | 9.1 | 4.0 - 11.0 K/uL | [facility] | | | Cells | | | [facility] | | | | [facility] | | | | | [facility] | | | | | | [facility] | | + + + + + + | Red Blood | 3.51 (L) | 3.70 - 5.20 | [facility] | | | Cells | | M/uL | [facility] | | | | | [facility] | | | | | | [facility] | | | | | | [facility] | | + + + + + + | Hemoglobin | 11.2 (L) | 11.5 - 16.0 | [facility] | | | | | g/dL | [facility] | | | [facility] | [facility] | | | | | | [facility] | | | | | | [facility] | | + + + + + + | Hematocrit | 33.1 (L) | 34.0 - 47.0 % | [facility] | | | | | | [facility] | [facility] | | | | | [facility] | | | | | | [facility] | | + + + + + + | MCV | 94.3 | 83.0 - 101.0 fL | [facility] | | | | | | [facility] | [facility] | | | | | [facility] | | | | | | [facility] | | + + + + + + | MCH | 31.9 | 28.0 - 35.0 pg | [facility] | | | | | | [facility] | [facility] | | | | | [facility] | | | | | | [facility] | | + + + + + + | MCHC | 33.8 | 32.0 - 36.0 | [facility] | | | | | g/dL | [facility] | | [facility] | | | | | | [facility] | | | | | | [facility] | | + + + + + + | RDW-CV | 14.4 | <15.0 % | [facility] | | | | | | [facility] | | | | | [facility] | | | | | | [facility] | | + + + + + + | RDW-SD | 50.6 (H) | 35.1 - 46.3 fL | [facility] | | | | | | [facility] | | | [facility] | | | | | | [facility] | | + + + + + + | Platelet | 380 | 140 - 440 K/uL | [facility] | | | Count | | | [facility] | [facility] | | | | | [facility] | | | | | | [facility] | | + + + + + + | MPV | 9.1 | 6.5 - 12.4 fL | [facility] | | | | | | [facility] | | | | | [facility] | | | | | | [facility] | | + + + + + + | % | 73.5 | 45.0 - 82.0 % | [facility] | | | Neutrophils | | | [facility] | | | | | [facility] | | | | | | [facility] | | | | | | [facility] | | + + + + + + | % | 12.1 (L) | 20.0 - 45.0 % | [facility] | | | Lymphocytes | | | [facility] | | | [facility] | [facility] | | | | | | [facility] | | | | | | [facility] | | + + + + + + | % Monocytes | 8.4 | 4.0 - 12.0 % | [facility] | | | | | | [facility] | | [facility] | [facility] | | | | | | [facility] | | | | | | [facility] | | + + + + + + | % | 0.8 | 0.0 - 5.0 % | [facility] | | | Eosinophils | | | [facility] | | | | | [facility] | | | | | | [facility] | | | | | | [facility] | | + + + + + + | % Basophils | 0.1 | 0.0 - 1.0 % | [facility] | | | | | | [facility] | | | | | [facility] | | | | | | [facility] | | | | | | [facility] | | + + + + + + | % Immature | 5.1 (H)Comment: | 0.0 - 0.4 % | [facility] | | | Granulocyte | Preliminary studies have | | [facility] | | | s | indicated the IG% | | [facility] | | | | and/or IG# show promise | | [facility] | | | | as an early indicator | | LAB[facility]ATORY | | | | for infection. | | | | + + + + + + | Absolute | 6.69 | 1.80 - 8.50 | [facility] | | | Neutrophils | | K/uL | [facility] | [facility] | [facility] | | | | | | [facility] | | | | | | [facility] | | + + + + + + | Absolute | 1.10 | 0.60 - 3.20 | [facility] | | | Lymphocytes | | K/uL | [facility] | | | | | | [facility] | | | | | | [facility] | | | | | | [facility] | | + + + + + + | Absolute | 0.76 | 0.00 - 1.00 | [facility] | | | Monocytes | | K/uL | [facility] | | | | | | [facility] | | | | | | [facility] | | | | | | [facility] | | + + + + + + | Absolute | 0.07 | 0.00 - 0.40 | [facility] | | | Eosinophils | | K/uL | [facility] | | | | | | [facility] | | | | | | [facility] | | | | | | [facility] | | + + + + + + | Absolute | 0.01 | 0.00 - 0.10 | [facility] | | | Basophils | | K/uL | [facility] | | | | | | [facility] | | | | | | [facility] | | | | | | [facility] | | + + + + + + | Absolute | 0.46 (H) | 0.00 - 0.03 | [facility] | | | Immature | | K/uL | [facility] | | | Granulocyte | | | MEDICAL | | | s | | | [facility]ARK | | | | | | LAB[facility]ATORY | | + + + + + + + + | Specimen | + + | Blood | + + + + + + + | Performing | Address | City/State/Zipcode | Phone Number | | Organization | | | | + + + + + | [facility] | [address] | [place] | [phone] | | [facility] | | [address] | | | [facility] | | | | + + + + + Troponin I (06/21/2019 1:15 PM PDT) + + + + + + | Component | Value | Ref Range | Performed | Pathologist | | | | | At | Signature | + + + + + + | Troponin I | <0.02Comment: | <=0.06 ng/mL | [place] | | | | Comment:Reference | | [place] | | | | Ranges: 0.00-0.06 = | | [facility] | | | | NORMAL >0.06 = | | [facility] | | | | SUSPICIOUS FOR | [...] | | | | | | [employer] | | | | | [...] + + + + + | [facility] | [address] | [place] | [phone] | | [facility] | | [address] | | | [facility] | | | | + + + + + D-Dimer (06/21/2019 1:15 PM PDT) + + + + + + | Component | Value | Ref Range | Performed | Pathologist | | | | | At | Signature | + + + + + + | D-DIMER, | 1,760 (H)Comment: | 0 - 500 D-DU | [facility] | | | QUANTITATIV | Pulmonary embolism/DVT | ng/ml | [facility] | | | E | cannot be ruled out. | | [facility] | | | | Follow standard | | [facility] | | | | investigation procedures | | LAB[facility]ORY | | | | for the investigation | | | | | | of pulmonary | | | | | | embolism/DVT. | | | | + + + + + + + + | Specimen | + + | Blood | + + + + + + + | Performing | Address | City/State/Zipcode | Phone Number | | Organization | | | | + + + + + | [facility] | [address] | [place] | [phone] | | [facility] | | [address] | | | [place] | | | | + + + + + ECG 12 lead (06/21/2019 1:14 PM PDT) + + + + + + | Component | Value | Ref Range | Performed | Pathologist | | | | | At | Signature | + + + + + + | VENTRICULAR | 78 | BPM | [facility] | | | RATE EKG | | | | | + + + + + + | ATRIAL RATE | 78 | BPM | [facility] | | + + + + + + | P-R | 182 | ms | [facility] | | | INTERVAL | | | | | + + + + + + | QRS | 112 | ms | [facility] | | | DURATION | | | | | + + + + + + | Q-T | 412 | ms | [facility] | | | INTERVAL | | | | | + + + + + + | Q-T | 469 | ms | [facility] | | | INTERVAL | | | | | | (CORRECTED) | | | | | + + + + + + | P WAVE AXIS | -3 | degrees | [facility] | | + + + + + + | QRS AXIS | -39 | degrees | [facility] | | + + + + + + | T AXIS | -9 | degrees | [facility] | | + + + + + + | INTERPRETAT | Normal sinus rhythmLeft | | [facility] | | | ION TEXT | axis deviationPulmonary | | | | | | disease | | | | | | patternIncomplete right | | | | | | bundle branch | | | | | | blockMinimal voltage | | | | | | criteria for LVH, may be | | | | | | normal variantT wave | | | | | | abnormality, consider | | | | | | anterior | | | | | | ischemiaAbnormal ECGWhen | | | | | | compared with ECG of | | | | | | 14-DEC-2015 13:52,No | | | | | | significant change was | | | | | | foundWhen compared to | | | | | | ECG sent from [facility] | | | | | | [facility] in [place], | | | | | | [place] dated 06/11/19, | | | | | | There is new T wave | | | | | | inversion and poor R | | | | | | wave progression in | | | | | | V2-4.Confirmed by | | | | | | KHALIDA GONZALEZ MD | | | | | | ([id number]) on 06/21/2019 | | | | | | 2:00:36 PM | | | | + + + [...] | Diagnosis | + + | Other chest pain, right anterior - Primary Other chest pain | + + | Abnormal EKG Nonspecific abnormal electrocardiogram (ECG) (EKG) | + + | History of fall Personal history of fall | + + documented in this encounter Administered Medications + +--------+ +--------+------+------+ | Medication Order | MAR | Action | Dose | Rate | Site | | | Action | Date | | | | + +--------+ +--------+------+------+ | aspirin chewable tablet 324 mg | Given | 06/21/20 | 324 mg | | | | 324 mg, Oral, ONCE, 06/21/19 | | 19 1:57 | | | | | at 1415, For 1 dose | | PM PDT | | | | + +--------+ +--------+------+------+ +---+---+ | | | +---+---+ documented in this encounter"
--- OUTSIDE RECORDS SUMMARY | ~2020-05-20 | XMS | Encounter Summary ---
Demographics + + + | Address | [address] | | | [place] [address] | + + + | Home Phone [...] + + + | Author | [facility] | | | and [place] | + + + | Organization | [facility] | | | [...] Team Providers + +------+ + | Care Air Brake Tester Name | Role | Phone | + +------+ + PCP | Unavailable | + +------+ + Encounter Details +--------+ + + + + | Date | Type | Department | Care Team | Description | +--------+ + + + + | 11/02/ | [facility] | [facility] | Umer Garcia MD | | | 2010 | Encounter | MED CTR XRAY [address] | | | | | [place] | [place] [address] | | | | | [place] [address] | [phone] | | | | | [phone] | | | +--------+ + + + [...]
--- OUTSIDE RECORDS SUMMARY | ~2020-05-20 | XMS | Encounter Summary ---
Demographics + + + | Address | [address] | | | [place] [address] | + + + | Home Phone [...] Providers + +------+ + | Care Assistant To The Vice President Name | Role | Phone | + [...] [place] | | | | | | [address] | [id number] Phone: | | | | | | Phone: | [phone] | | | | | | [phone] | Fax: | | | | | | Fax: | [phone] | | | | | | [phone] | | +--------+--------+ + + + + Encounter Details +--------+---------+ + + + | Date | Type | Department | Care Team | Description | +--------+---------+ + + + | 10/29/ | Office | [facility] | Deep [place], | Chest pain, | | 2019 | Visit | [facility]ARDIOLOGY [place] | MD [address] | non-cardiac (Primary | | | | [address] | [place], | Dx); [address] | | | | [address] | [place] [address] | (peripheral vascular | | | | [place], [place] | [phone] | disease) (HCC); | | | | [address] | | 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 EYES: No amaurosis, diplopia, recent visual [...] PV Angio (01/23/13): 50% right popliteal, right [employer] occluded proximally with reconstituti on; 70% left popliteal artery with reconstitution, left [employer] occluded, reconstituted distally GASTROINTESTINAL: GERD. A small Hiatal Hernia was seen on a CTA 06/21/19. No recent abdo polly pain, nausea, vomiting or diarrhea. Denies PUD, melena, hematochezia, hepatitis. RENAL/: No history of kidney disease. She has had frequent UTIs. No dysuria, hematuria , urinary urgency, hesitancy. 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 HEMATOLOGY/ONCOLOGY: No h/o bleeding disorders, has [...] Fusion; Surgeon: Umer Garcia MD; Loc ation: [facility] MAIN OR FOOT SURGERY bilateral little toes & left big toe HIATAL HERNIA REPAIR HYSTERECTOMY HYSTERECTOMY LUMBAR SPINE SURGERY Left 12/14/2015 Procedure: L4-5 Lateral Anterior Interbody Fusion w/ L5-S1 Transforaminal Lumbar Interbody Fusion; Surgeon: Umer Garcia MD; Location: [facility] MAIN OR OTHER SURGICAL HISTORY Left 01/03/2017 BYPASS GRAFT-AXILLARY ARTERY - Procedure: BYPASS GRAFT - AXILLARY ARTERY; Surgeon: Hu Yu MD; Location: [facility] MAIN OR; Service: Vascular; Laterality: Left; Left axillary ex ploration and axillary artery repair. Left saphenous vein harvest SHOULDER ARTHROSCOPY Bilateral SHOULDER SURGERY Left 01/03/2017 Dr. Rausch [facility]. SHOULDER SURGERY Left 01/03/2017 Procedure: SHOULDER - TOTAL; Surgeon: Umer Hendrix MD; Location: [facility] MAIN OR; Serv ice: Orthopedics; Laterality: Left; [...] file Gets together: Not on file Attends congregation service: Not on file Active member of [...] 12.8 oz) | SpO2 97% | B KS 26.92 kg/m PHYSICAL EXAM GENERAL: Well developed, [...]
--- OUTSIDE RECORDS SUMMARY | ~2020-05-20 | XMS | Encounter Summary ---
Demographics + + + | Address | [address] | | | [place] [address] | + + + | Home Phone [...] Team Providers + +------+ + | Care Soda Flaker Name | Role | Phone | + +------+ + | Paul Hogan MD | PCP | | + +------+ + Reason for Visit + + + | Reason | Comments | + + + | Follow-up | 12w PO | + + + Encounter Details +--------+---------+ + + + | Date | Type | Department | Care Team | Description | +--------+---------+ + + + | 04/14/ | Office | [facility] | Umer Garcia MD | S/P cervical spinal | | 2016 | Visit | NEUROSURGERY [address] | [address] | fusion (Primary Dx); | | | | [address] | [place] [address] | S/P lumbar fusion | | | | [place] | [phone] | | | | | [address] | | | | | | [phone] | | | +--------+---------+ + + + [...] + + + | Blood Pressure | 135/85 | 04/14/2016 3:22 PM | | | | | PDT | | + + + + + | Pulse | 75 | 04/14/2016 3:22 PM | | | | | PDT | | + + + + + | Temperature | - | - | | + + + + + | Respiratory Rate | 18 | 04/14/2016 3:22 PM | | | | | PDT | | + + + + + | Oxygen Saturation | - | - | | + + + + + | Inhaled Oxygen | - | - | | | Concentration | | | | + + + + + | Weight | 73.5 kg (162 lb) | 04/14/2016 3:22 PM | | | | | PDT | | + + + + + | Height | 165.1 cm (5' 5") | 04/14/2016 3:22 PM | | | | | PDT | | + + + + + | Body Mass Index | 26.96 | 04/14/2016 3:22 PM | | | | | PDT [...] encounter Progress Notes Umer Garcia MD - 04/14/2016 3:42 PM PDTFormatting of this note might be different from t he original. Umer Garcia MD [address] [facility], [address] [place] [address] FAX: NEUROSURGERY FOLLOW-UP CHIEF COMPLAINT: Chief Complaint Patient presents with Follow-up 12w PO HISTORY OF PRESENT ILLNESS: The patient is a 81 y.o. female that had a lumbar fusion for s fallon stenosis and radiculopathy around 3 months ago. She returns and overall is doing well . Overall though her symptoms have been improving from before surgery. The patient hasn't been walking as much due to knee and ankle arthritic pain but she is active in water aerobic s. She is still taking pain medications at this point but has weaned significiantly. The p atient has had no issues with her surgical site. CURRENT MEDICATIONS: Current Outpatient Prescriptions Medication Sig Dispense Refill Acetaminophen (TYLENOL ARTHRITIS PAIN PO) Take 1,000 mg by mouth 3 times daily. aspirin 81 mg EC tablet Take 81 mg by mouth Daily. atorvaSTATin (LIPITOR) 10 mg tablet Take 10 mg by mouth nightly. Calcium Citrate-Vitamin D (CITRACAL/VITAMIN D) 250-200 MG-UNIT TABS Take by mouth 2 ti mes daily. Cyanocobalamin (VITAMIN B 12 PO) Take 1 [...] 4 hours as needed fo r Pain. 90 tablet 0 paroxetine (PAXIL) 30 MG tablet [...] llicit drugs. INTERIM PHYSICAL EXAMINATION: Blood pressure 135/85, pulse 75, resp. rate 18, height 1.651 m (5' 5"), weight 73.483 kg (1 62 lb), not currently . Body mass index is 26.96 kg/(m^2). GENERAL: Mellisa Carrizales is in no acute distress with unlabored respirations. SPINE: The patient s incisions are healing well without drainage, significant erythema, o r discharge. EXTREMITIES: No lower extremity edema. NEUROLOGICAL EXAMINATION: MENTAL STATUS: The patient is awake, alert, and oriented. She follows simple and complex commands MOTOR EXAM: Motor strength is improved. RADIOGRAPHIC REVIEW: The patient s x-rays show stable instrumentation and alignment and were reviewed with the patient today. Increased bony fusion is noted but it is not complete. ASSESSMENT: Encounter Diagnoses Name Primary? S/P cervical spinal fusion Yes S/P lumbar fusion Past Medical History Diagnosis Date DVT of leg (deep venous thrombosis) ([facility]) Osteoarthritis Depression Gastric reflux Hypertension Hyperlipidemia Migraine Neuropathy Poor circulation Hypothyroid Full dentures upper & lower Seasonal allergies Claustrophobia Sleep apnea no CPAP PLAN: Overall, the patient is doing well. Most of the preoperative symptoms are resolving as exp ected. I increased the patient s activities up to 30 lbs maximum lifting. The patient should in crease range of motion activities as tolerated. They should continue regular exercise and s trengthening with the hope that they can avoid additional surgery. manager intermediate pain medication should be continued and tapered by their primary care provider or pain management The patient needs to follow-up in 6 months with x-rays for re-evaluation. These will be luis a th cervical and lumbar images. ELECTRONICALLY SIGNED BY: Umer Garcia MD, 04/14/2016 15:42 documented in this encou nter Plan of Treatment Not on filedocumented as of this encounter Results XR Cervical Spine 2 or 3 Views (10/20/2016 9:17 AM [facility]) + + | Specimen | + + [...] through C7. Dictated and Signed by: John Toney, | | | Electronically signed: 10/20/2016 10:37 AM | | [...] | [facility] | [address] | [place] | [phone] | | [facility] | | [address] | | | - IMAGING | | | | + + + + + XR Lumbar Spine 2 or 3 Vw (10/20/2016 9:16 AM [facility]) + + | Specimen | + + | | + + + + + | Narrative | Performed At | + + + | TWO VIEWS LUMBAR SPINE 10/20/2016 9:16 AM CLINICAL HISTORY: Postop | [facility] | | fusion COMPARISON: LUMBAR RADIOGRAPHS APRIL 2016 AND MULTIPLE | [facility] | | PREVIOUS RADIOGRAPHS FINDINGS: Five non rib-bearing, lumbar type | [facility] | | vertebrae are visible. Rightward lumbar [...] | Brian, Rad Results In - 10/20/2016 10:16 AM PST [...] | + + + + + | [facility] | [address] | [place], [place] | [phone] | | [facility] | | [address] | | | - IMAGING | | | | + + + + + documented in this encounter Visit Diagnoses + + | Diagnosis | + + | S/P cervical spinal fusion - Primary Arthrodesis status | + + | S/P lumbar fusion Arthrodesis status | + + documented in this encounter
--- OUTSIDE RECORDS SUMMARY | ~2020-05-20 | XMS | Encounter Summary ---
Demographics + + + | Address | [address] | | | [place] [address] | + + + | Home Phone [...] Team Providers + +------+ + | Care Roll Hauler Name | Role | Phone | + +------+ + | Paul Hogan MD | PCP | | + +------+ + Encounter Details +--------+ + + + + | Date | Type | Department | Care Team | Description | +--------+ + + + + | 04/24/ | Hospital | [facility] | Umer Garcia MD | Cervical spondylosis | | 2015 | Encounter | MED CTR LABORATORY | [address] | with radiculopathy; | | | | [address] | [place] [address] | Cervical | | | | [place] | [phone] | spondylosis with | | | | [address] | | myelopathy; | | | | [phone] | | Degenerative disc | | | [...] [address] | [place] | [phone] | | [facility] | | [address] | | | - LABORATORY | | [...] | 0.87 | 0.60 - 1.30 | [facility] | | | | | mg/dL | [facility] | | | | | | MEDICAL | | | | | | CENTER - | | | | | | LABORATORY | | + + + + + + | eGFR, | >60Comment: GLOMERULAR | >=60 | [facility] | | | non- | FILTRATION | mL/min/1.73m2 | [facility] | | | [place]ien | RATE,ESTIMATED | | MEDICAL | | | | mL/min/1.68c6Puxk than | | CENTER - | | [...] [address] | [place] | [phone] | | [facility] | | [address] | | | - LABORATORY | | [...]
--- OUTSIDE RECORDS SUMMARY | ~2020-05-20 | XMS | Encounter Summary ---
Demographics + + + | Address | [address] | | | [place] [address] | + + + | Home Phone | | + + + | Preferred Language | Unknown | + + + | Marital Status | | + + + | Jainism Affiliation | 1028 | + + + | Race | White | + + + | Ethnic Group | Not or | + + + Author + + + | Author | [facility] | | | and [place] | + + + | Organization | [facility] | | [...] Team Providers + +------+ + | Care Tray Filler Name | Role | Phone | + +------+ + PCP | Unavailable | + +------+ + Encounter Details +--------+ + + + + | Date | Type | Department | Care Team | Description | +--------+ + + + + | 05/31/ | [facility] | [facility] | Aly Beal | | | 2010 | Encounter | MED CTR XRAY [address] | [address], [address] | | | | | [place] | [place] | | | | | [place] [address] | [address] | | | | | [phone] | | | +--------+ + + + [...] + +--------+ + + + | FL FACET INJECTION | | 05/31/2011 | | Results for this | | | | 1:02 PM | | procedure are in the | | | | PDT | | results section. | + +--------+ + + + documented in this encounter Results FL Facet Injection (05/31/2011 1:02 PM PDT) + + | Specimen | + + | | + + + + + | Narrative | Performed At | + + + | [facility] | [facility] | | [address] [facility] | [facility] | | PROCEDURE NOTE LUMBAR FACET | DIAG IMG | | INJECTIONS, 05/31/2011 CLINICAL HISTORY: ICD-9 CODE 721.2, | | | LUMBAR SPONDYLOSIS. Ms. Mellisa Carrizales presents to the | | | fluoroscopy suite for fluoroscopically-guided bilateral L4-L5 and | | | bilateral L5-S1 facet injections as part of conservative management | | | for chronic pain with lumbar spon dylosis. After informed consent | | | was obtained, the patient lay in the prone position on the fluorosco | | | py table. The areas were identified under fluoroscopic guidance. | | | The areas were prepped and draped in sterile fashion. A | | | 25-gauge, 1.5-inch needle was inserted into each region and | | | approximately 3 mL of buffered 1% lidocaine was infused. Then, a | | | 22-gauge spinal needle was inserted into the superior portion of | | | each facet under fluoroscopic guidance. Confirmation into the joint | | | spaces was obtained with infusion of approximately 1 mL of Isovue | | | contrast which showed outline of the facet joints. The n, a | | | combination of 2 mL of 1% lidocaine and 2 mL of 40 mg/mL Kenalog was | | | infused divided between the four joints. The patient tolerated the | | | procedure well without complications. Pre- and post-procedu re | | | blood pressures were stable. The patient was given verbal as well as | | | written followup instruction s, and the patient reported good | | | improvement in pain symptoms post procedure. Prior to the start | | | of the procedure, the following were performed and verified, | | | including correct pat ient identity, correct site/side marked and | | | visible, agreement on the procedure to be done, correct p atient | | | positioning and an accurate procedure consent form. Any safety | | | precautions based on clinical history and/or medication use have | | | been addressed. I personally performed the procedures above. | | | Dictated Date/Time: 05/31/2011 18:11 Transcribed Date/Time: | | | 05/31/2011 18:44 Telecommunications Linesworker: <Electronically Signed | | | by Aly Beal MD> 06/03/11 1735 | | + + + + + | Procedure Note | + + | Aleksander Torres Conversion - 10/18/2013 3:[address] [facility] | | Diagnostic Imaging Department [address] [place] [address] | | PROCEDURE NOTE LUMBAR FACET INJECTIONS, 05/31/2011 | | CLINICAL HISTORY: ICD-9 CODE 721.2, LUMBAR SPONDYLOSIS. Ms. Mellisa Carrizales presents | | to the fluoroscopy suite for fluoroscopically-guided bilateral L4-L5 and bilateral L5-S1 | | facet injections as part of conservative management for chronic pain with lumbar | | spondylosis. After informed consent was obtained, the patient lay in the prone position | | on the fluoroscopy table. The areas were identified under fluoroscopic guidance. The | | areas were prepped and draped in sterile fashion. A 25-gauge, 1.5-inch needle was | | inserted into each region and approximately 3 mL of buffered 1% lidocaine was infused. | | Then, a 22-gauge spinal needle was inserted into the superior portion of each facet | | under fluoroscopic guidance. Confirmation into the joint spaces was obtained with | | infusion of approximately 1 mL of Isovue contrast which showed outline of the facet | | joints. Then, a combination of 2 mL of 1% lidocaine and 2 mL of 40 mg/mL Kenalog was | | infused divided between the four joints. The patient tolerated the procedure well | | without complications. Pre- and post-procedure blood pressures were stable. The | | patient was given verbal as well as written followup instructions, and the patient | | reported good improvement in pain symptoms post procedure. Prior to the start of the | | procedure, the following were performed and verified, including correct patient | | identity, correct site/side marked and visible, agreement on the procedure to be done, | | correct patient positioning and an accurate procedure consent form. Any safety | | precautions based on clinical history and/or medication use have been addressed. I | | personally performed the procedures above. Dictated Date/Time: 05/31/2011 | | 18:11Transcribed Date/Time: 05/31/2011 18:44Transcriptionist: <Electronically | | Signed by Aly Beal MD> 06/03/11 8745 | |Prior to the start of the procedure, the following were performed and verified, including c orrect pat | |ient identity, correct site/side marked and visible, agreement on the procedure to be done, correct p | |atient positioning and an accurate procedure consent form. Any safety precautions based on clinical | |history and/or medication use have been addressed. | | | |I personally performed the procedures above. | | | |Dictated Date/Time: 05/31/2011 18:11 | |Transcribed Date/Time: 05/31/2011 18:44 | |Telecommunications Linesworker: | |<Electronically Signed by Aly Beal MD> 06/03/11 1735 | + + + +---------+ + + | Performing | Address | City/State/Zipcode | Phone Number | | Organization | | | | + +---------+ + + | [place] | | | | | [facility] [employer] | | | | + +---------+ + + documented in this encounter Visit Diagnoses Not on filedocumented in this encounter"
--- OUTSIDE RECORDS SUMMARY | ~2020-05-20 | XMS | Encounter Summary ---
Demographics + + + | Address | [address] | | | [place] [address] | + + + | Home Phone [...] Team Providers + +------+ + | Care Account Management Assistant Name | Role | Phone | + [...] [address] [place] | radiculopathy; | | | | [place], [place] | [address] | Foraminal stenosis | | | | [address] | | of cervical region; | | | | [phone] | | S/P lumbar fusion | +--------+ [...] COMPARISON: 01/19/2016 FINDINGS: Posterior spinal fusion | [facility] | | hardware seen at the levels of L4-S1, with disc spacer placement at [facility] | | the intervening levels, without [...] ST. | [address] | [place], [place] | [phone] | | [facility] | | [address] | | | - IMAGING | | [...]
--- OUTSIDE RECORDS SUMMARY | ~2020-05-20 | XMS | Encounter Summary ---
Demographics + + + | Address | [address] | | | [place] [address] | + + + | Home Phone [...] Providers + +------+ + | Care Dry Pan Charger Name | Role | Phone | + +------+ + PCP | Unavailable | + +------+ + Encounter Details +--------+ + + + + | Date | Type | Department | Care Team | Description | +--------+ + + + + | 04/15/ | [facility] | [facility] | [place], | | | 2008 | Encounter | MED CTR XRAY [address] | [address] | | | | | [place] | [place], | | | | | [place] [address] | [place] [address] | | | | | [phone] | [phone] | | | | | | | [...]
--- OUTSIDE RECORDS SUMMARY | ~2020-05-20 | XMS | Encounter Summary ---
Demographics + + + | Address | [address] | | | [place] [address] | + + + | Home Phone [...] Team Providers + +------+ + | Care Hospital Staff Pharmacist Name | Role | Phone | + +------+ + | Ethan Solomon MD | PCP | | + +------+ + Reason for Visit + +--------+ + | Reason | Onset | Comments | | | Date | | + +--------+ + | Imaging Only | 10/09/ | Lumbar CT | | | 2018 | | + +--------+ + Encounter Details +--------+ + + + + | Date | Type | Department | Care Team | Description | +--------+ + + + + | 10/09/ | Telephone | [facility] | Umer Garcia MD | Imaging Only (Lumbar | | 2019 | | NEUROSURGERY [address] | [address] | [place]) | | | | [address] | [place] [address] | | | | | [place] | [phone] | | | | | [address] | | | | | | [phone] | | | +--------+ + + + [...] Miscellaneous Notes Telephone Encounter - Aric Wilcox PA-C - 10/10/2018 10:35 AM PSTThkandice Saroj mendez signed by Aric Wilcox PA-C at 10/10/2018 10:35 AM PSTTelephone Encounter - T Marcia Talamantes, Gm/Svp Global Publisher Business - 10/09/2018 3:03 PM PSTI spoke with the radiology department at [facility] and confirmed that Mellisa has not had a recent Lumbar CT. Order has been place for one. Electronically signed by Marcia Tyler Gm/Svp Global Publisher [employer] destiny t 10/09/2018 3:08 PM PSTdocumented in this encounter Plan of Treatment Not on filedocumented as of this encounter Visit Diagnoses Not on filedocumented in this encounter"
--- OUTSIDE RECORDS SUMMARY | ~2020-05-20 | XMS | Encounter Summary ---
Demographics + + + | Address | [address] | | | [place] [address] | + + + | Home Phone [...] Providers + +------+ + | Care Construction Coordinator Name | Role | Phone | + +------+ + | Paul Hogan MD | PCP | | + +------+ + Encounter Details +--------+ + + + + | Date | Type | Department | Care Team | Description | +--------+ + + + + | 01/03/ | Emergency | [facility] | | | | 2016 | | MEDICAL CENTER | | | | | | EMERGENCY CENTER | | | | | | [address] | | | | | | [place] | | | | | | [address] | | | | | | [phone] | | | +--------+ + + + [...]
--- OUTSIDE RECORDS SUMMARY | ~2020-05-20 | XMS | Encounter Summary ---
Demographics + + + | Address | [address] | | | [place] [address] | + + + | Home Phone | | + + + | Preferred Language | Unknown | + + + | Marital Status | | + + + | Pentecostalism Affiliation | 1028 | + + + [...] Team Providers + +------+ + | Care Burner Shaft Name | Role | Phone | + [...] + | 04/30/ | Anesthesia | [facility] | Shaw Vicente MD | | | 2015 | Event | MED CTR OR INTRA OP | [address] | | | | | [address] | [place] | | | | | [place] | [address] | | | | | [address] | | | | | | [phone] | | | +--------+ + + + [...] +----+---+ + + | | 0 | Draper | | | | 8 | 38-degrees [...] +----+---+ + + | | 0 | Draper off | | | | 9 | [...] Mellisa Bryant Sjurset 80 y.o. female 1935 [id number] Procedure(s) C5-6, C6-7 Anterior Cervical Discectomy Fusion [...] signed by Shaw Vicente MD 04/30/2015 15:19 [facility] nesthesia Preprocedur e Evaluation - Shaw Vicente MD - 04/30/2015 7:15 AM PDT ANESTHESIA PREANESTHESIA EVALUATION Mellisa Carrizales 80 y.o. female 1935 [id number] Procedure(s): C5-6, C6-7 Anterior Cervical Discectomy Fusion [...]
--- OUTSIDE RECORDS SUMMARY | ~2020-05-20 | XMS | Encounter Summary ---
Demographics + + + | Address | [address] | | | [place] [address] | + + + | Home Phone [...] Team Providers + +------+ + | Care User Interface Engineer Name | Role | Phone | [...] | | [address] | [place] [address] | (Primary Dx); | | | | [place] | [phone] | Cervical spondylosis | | | | [address] | | with myelopathy; | | | | [phone] | | Degenerative disc | | | [...] + | [facility] | [address] | [place] | [phone] | | [facility] | | [address] | | | - LABORATORY | | [...] mL/min/1.73m2 | [facility] | | | [place] | RATE,ESTIMATED | | MEDICAL | | | | mL/min/1.59y4Bmwo than | | CENTER - | | [...] + | [facility] | [address] | [place], [place] | [phone] | | [facility] | | [address] | | | - LABORATORY | | [...] ST. | [address] | [place], [place] | [phone] | | [facility] | | [address] | | | - IMAGING | | [...]
--- OUTSIDE RECORDS SUMMARY | ~2020-05-20 | XMS | Encounter Summary ---
Demographics + + + | Address | [address] | | | [place] [address] | + + + | Home Phone [...] Team Providers + +------+ + | Care Lockstitcher Name | Role | Phone | + [...] | | [address] | [place] [address] | | | | | [place] | [phone] | | | | | [address] | | | | | | [phone] | | | +--------+ + + + [...] of this encounter Progress Notes Marcia Avila, Piece Meat Trimmer - 10/09/2018 3:33 PM PST Outpatient Morphine [...] severe) The following information was obtained from [email or web address] on 10/09/18. [place] LOOM OPERATOR was checked on 10/09/18 and no medications have been dispensed in the last 3 mon ths. The following information was obtained from https://secureaccess.[employer].gov/myAccess/saw/select .do on 10/09/18. [place] LOOM OPERATOR was checked on 10/09/18 and no medications have been dispensed in the last 3 months. Tdocumented in this encounter Plan of Treatment Not on filedocumented as of this encounter Visit Diagnoses Not on filedocumented in this encounter"
--- OUTSIDE RECORDS SUMMARY | ~2020-05-20 | XMS | Encounter Summary ---
Demographics + + + | Address | [address] | | | [place] [address] | + + + | Home Phone [...] Team Providers + +------+ + | Care Still Operator Gin Name | Role | Phone | + +------+ + | Paul Hogan MD | PCP | | + +------+ + Encounter Details +--------+ + + + + | Date | Type | Department | Care Team | Description | +--------+ + + + + | 04/24/ | Hospital | [facility] | Umer Garcia MD | Cervical spondylosis | | 2015 | Encounter | MED CTR | [address] | with myelopathy | | | | [facility] | [place] [address] | (Primary Dx) | | | | [address] | [phone] | | | | | [place] [address] | | | | | | [phone] | | | +--------+ + + + [...]
--- OUTSIDE RECORDS SUMMARY | ~2020-05-20 | XMS | Encounter Summary ---
Demographics + + + | Address | [address] | | | [place] [address] | + + + | Home Phone [...] + + + | Author | [facility] | | | and [place] | + + + | Organization | [facility] | | | [...] Team Providers + +------+ + | Care Mannequin Coloring Artist Name | Role | Phone | + +------+ + | Paul Hogan MD | PCP | | + +------+ + Reason for Visit + +--------+ + | Reason | Onset | Comments | | | Date | | + +--------+ + | Neck Pain | 10/18/ | | | | 2016 | | + +--------+ + | Coordination Of Care | 10/18/ | | | | 2016 | | + +--------+ + Encounter Details +--------+ + + + + | Date | Type | Department | Care Team | Description | +--------+ + + + + | 10/18/ | Telephone | [facility] | Aric Wilcox | Neck Pain; | | 2017 | | NEUR[address]URGERY [address] | [address] | Coordination Of Care | | | | [facility] [address] [place], [place] | | | | | [place], [place] | [address] | | | | | [address] | | | | | | [phone] | | | +--------+ + + + [...] Telephone Encounter - Aric Wilcox PA-C - 10/19/2016 8:39 AM PSTI agree with lacy mmendation to have her neck symptoms further evaluated through her primary care provider's o ffice. We can briefly discuss her neck discomfort when I see her, however because of the li mitations of time For that visit I will not be able to thoroughly and fully evaluate a cervi cassi spinal issue that is a new problem. I can also discuss this further with her when I see her in the office. elephone Encounter - Katlyn Gómez RN - 10/18/2016 4:26 PM PSTPost op patient: Bowen s 12/14/2015 L4-5 Lateral Anterior Interbody Fusion w/ L5-S1 Transforaminal Lumbar Interbody Fu chelsey Next appointment 10/20/2016 Patient reporting neck symptoms as described below with onset at least 3 months ago. Sympt oms have not yet been evaluated by PCP. Encouraged patient to see a primary care provider ( her PCP, regional marketing director provider or Urgent Care provider) to evaluate symptoms and make referral if appropriate. Patient stated that she recently had a shoulder surgery canceled because her BP became dangerously elevated while she was on the operating table, but before surgery urbano n. She is still waiting for that surgery to be rescheduled. Patient frustrated with curren t provider and stated that she might need to find a new one before anything else could be re solved. Encouraged patient to be her own advocate and to request f/u appointment to discuss clearance for surgery which would also be necessary prior to any other surgery considered. Patient reluctantly verbalized understanding and will try to get appointment to discuss sym ptoms with PCP. eleph one Encounter - Chela Alba - 10/18/2016 4:14 PM PSTCalled patient to confirm her appt for with Darnell. She asked if she should get some neck xrays because she has been hav ing a lot of pain and "crunching" in the left side of her neck going up into her head. I ask ed her if we have ever seen her for neck problems and she said no. I let her know that she s hould definitely reach out to her PCP for this new problem. She verbalized understanding, bu t stated "he is on vacation for a week." I suggested that there may be someone taking his ca lls while he is gone and let her know that I would update Darnell as well before her visit.Elec tronically signed by Chela Alba at 10/18/2016 4:24 PM PSTdocumented in this encounter Plan of Treatment Not on filedocumented as of this encounter Visit Diagnoses Not on filedocumented in this encounter
--- OUTSIDE RECORDS SUMMARY | ~2020-05-20 | XMS | Encounter Summary ---
Demographics + + + | Address | [address] | | | [place] [address] | + + + | Home Phone [...] Team Providers + +------+ + | Care Travelers' Aid Worker Name | Role | Phone | [...] + + | 10/09/ | Office | [facility] | Aric Wilcox | S/P cervical spinal | | 2019 | Visit | NEUROSURGERY [address] | [address] | fusion (Primary Dx); | | | | [address] [place], [place] | Cervicalgia; S/P | | | | [place], [place] | [address] | lumbar fusion | | | | [address] | | | | | | [phone] | | | +--------+---------+ + + + [...] encounter Patient Instructions Patient Instructions Marcia Avila, [facility] - 10/09/2018 10:30 AM PSTIt was a [...] obtain a more recent lumbar CT from [facility]. If there is not a recent on e available we will send an order for one. You will receive a call with further instructions . T documented in this encounter Progress Notes Aric Wilcox PA-C - 10/09/2018 10:30 AM PSTFormatting of this note might be differ ent from the original. Aric Wilcox PA-C [address] [facility] [place] [address] [place] [address] PHONE: FAX: NEUROSURGERY HISTORY AND PHYSICAL EXAMINATION [...] Depression DVT of leg (deep venous thrombosis) ([facility]) Full dentures upper & lower Gastric reflux Hyperlipidemia Hypertension Hypothyroid Migraine Neuropathy Osteoarthritis Poor circulation Seasonal allergies Sleep apnea no CPAP PAST SURGICAL HISTORY: Past Surgical History: Procedure Laterality Date BACK SURGERY Right BLADDER REPAIR x 3 CERVICAL SPINE SURGERY N/A 04/30/2015 Procedure: C5-6, C6-7 Anterior Cervical Discectomy Fusion; Surgeon: Umer Garcia MD; Loc ation: [facility] MAIN OR FOOT SURGERY bilateral little toes & left big toe HYSTERECTOMY LUMBAR SPINE SURGERY Left 12/14/2015 Procedure: L4-5 Lateral Anterior Interbody Fusion w/ L5-S1 Transforaminal Lumbar Interbody Fusion; Surgeon: Umer Garcia MD; Location: [facility] MAIN OR SHOULDER ARTHROSCOPY Bilateral SHOULDER SURGERY Left 01/03/2017 Dr. Rausch [facility]. TONSILLECTOMY AND ADENOIDECTOMY CURRENT MEDICATIONS: Current [...] no apparent deficits with short or intermediate manager memory. CRANIAL NERVES: II: Acuity is intact. [...] Intrinsics 5 5 Ulnar Intrinsics 5 5 Manager Learning Strength 5 5 Hip Flexion 5 5 [...] Depression DVT of leg (deep venous thrombosis) ([facility]) Full dentures upper & lower Gastric [...] not had one recently [facility] in [place]. If her CT scan shows adequate fusion then I would recommend she work clos bladimir with physiatry. She has a lack of neurologic radicular symptoms and I think at this [facility] surgery would not be in her [...]
--- OUTSIDE RECORDS SUMMARY | ~2020-05-20 | XMS | Encounter Summary ---
Demographics + + + | Address | [address] | | | [place] [address] | + + + | Home Phone [...] Team Providers + +------+ + | Care Seamark Advanced Operator Maintainer Name | Role | Phone | + +------+ + | Paul Hogan MD | PCP | | + +------+ + Reason for Visit +--------+--------+ + | Reason | Onset | Comments | | | Date | | +--------+--------+ + | Pain | 07/07/ | | | | 2016 | | +--------+--------+ + Encounter Details +--------+ + + + + | Date | Type | Department | Care Team | Description | +--------+ + + + + | 07/07/ | Telephone | [facility] [place] | Umer Garcia MD | Pain | | 2017 | | NEUROSUR[address]ERY [address] | [address] | | | | | [address] | [place] [address] | | | | | [place], [place] | [phone] | | | | | [address] | | | | | | [phone] | | | +--------+ + + + [...] this encounter Miscellaneous Notes Telephone Encounter - Jessica Caraballo Cert MA - 07/07/2017 12:21 PM PDTPatient called and is having some new pain in her neck. She would like to come back and see Darnell Wilcox. An appoi ntment was made for patient. documented in this encounter Plan of Treatment Not on filedocumented as of this encounter Visit Diagnoses Not on filedocumented in this encounter"
--- OUTSIDE RECORDS SUMMARY | ~2020-05-20 | XMS | Encounter Summary ---
Demographics + + + | Address | [address] | | | [place] [address] | + + + | Home Phone [...] Team Providers + +------+ + | Care Nursing Manager Name | Role | Phone | [...] | | [address] | [place] [address] | | | | | [place] | [phone] | | | | | [address] | | | | | | [phone] | | | +--------+ + + + [...] a future XR order was sent to [facility] and that she needs to have that completed for Dr. Garcia . Patient verbalized understanding and will completed XR Lumbar. elephone Encounter - Chela Alba - 08/28/2015 11:07 AM PSTPatient left message via [email or web address]: "Returning your call. Please call"Delmis ctronically signed by Chela Alba at 08/28/2015 11:08 AM PSTTelephone Encounter - Dom Simmons - 08/27/2015 4:35 PM PSTAttempted to reach patient to let her know that she nee ds to complete her XR Lumbar. No answer at either phone number listed in [employer] and no opportu nity to leave a VM. elephone Encounter - Dom Bach - 08/27/2015 8:31 AM PSTAttempted to reach patient again. No answer at e ither phone number listed in [employer] and no opportunity to leave a VM. Will try to reach patien t again later today. e lephone Encounter - Dom Bach - 08/25/2015 1:43 PM PSTAttempted to reach patient t o let her know that she needs to have an XR Lumbar done at [facility], as the disk she brought int o the office today had an XR Lumbar done back on December 08, 2014. I confirmed with [facility] diane t they have the XR Lumbar order. I was unable to leave the patient a VM as her VM box has no t been set up at either number we have in [facility] for her. When patient call backs, please let her know that she needs to have an XR Lumbar done at [facility]. Thank you. document ed in this encounter Plan of Treatment Not on filedocumented as of this encounter Visit Diagnoses Not on filedocumented in this encounter
--- OUTSIDE RECORDS SUMMARY | ~2020-05-20 | XMS | Encounter Summary ---
Demographics + + + | Address | [address] | | | [place] [address] | + + + | Home Phone | | + + + | Preferred Language | Unknown | + + + | Marital Status | | + + + | Hindu Affiliation | [id number] | + + + | Race | White | + + + | Ethnic Group | Not or | + + + Author + + + | Author | [facility] | | | and [place] | + + + | Organization | [facility] | [...] Team Providers + +------+ + | Care Brass Chaser Name | Role | Phone | [...] | | [address] | [place] [address] | normahen (NORCO) | | | | [place] | [phone] | 10-325 mg per | | | | [address] | | tablet) | | | | [phone] | | | +--------+--------+ + + + [...] of days. Due to patient living in [place], she woul d like her Rx to [...]
--- OUTSIDE RECORDS SUMMARY | ~2020-05-20 | XMS | Encounter Summary ---
Demographics + + + | Address | [address] | | | [place] [address] | + + + | Home Phone [...] Team Providers + +------+ + | Care Electronic Commerce Specialist Name | Role | Phone | [...] | | [address] | [address] [place], | | | | | [place], [place] | [place] [address] | | | | | [address] | [phone] | | | | | [phone] | | | +--------+ + + + [...] SOUZA MD has created this entry using [employer] | | | Medical Voice Recognition software and [employer] macros. The entry | | | has [...] has | | created this entry using SpoondateRecognition software and [employer] | | macros. The entry has been [...] SOUZA MD has created this entry using [employer] | |Recognition software and [employer] macros. The entry has been reviewed and | |there may still exist sound alike word errors. | | | + + documented in this encounter Visit Diagnoses Not on filedocumented in this encounter"
--- OUTSIDE RECORDS SUMMARY | ~2020-05-20 | XMS | Encounter Summary ---
Demographics + + + | Address | [address] | | | [place] [address] | + + + | Home Phone [...] Team Providers + +------+ + | Care Interior Systems Carpenter Name | Role | Phone | + +------+ + | tEhan Solomon MD | PCP | | + +------+ + Encounter Details +--------+ + + + + | Date | Type | Department | Care Team | Description | +--------+ + + + + | 04/08/ | Orders Only | [facility] | Provider, | | | 2019 | | SYSTEM GENERIC OP | [address] | | | | | [address] | [place]. | | | | | [address] [place], [place] | [place] [address] | | | | | [address] | | | | | | [phone] | | | +--------+ + + + [...]
--- OUTSIDE RECORDS SUMMARY | ~2020-05-20 | XMS | Encounter Summary ---
Demographics + + + | Address | [address] | | | [place] [address] | + + + | Home Phone [...] Team Providers + +------+ + | Care Drafter Landscape Name | Role | Phone | + +------+ + | Paul Hogan MD | PCP | | + +------+ + Encounter Details +--------+ + + + + | Date | Type | Department | Care Team | Description | +--------+ + + + + | 01/03/ | Hospital | [facility] | Hu Quintero MD | Primary | | 2017 - | Encounter | [facility] | [address] | osteoarthritis of | | | | CARE [address]LO[address] | [place], [place] | left shoulder; | | 01/05/ | [address] | [address] | Chronic pain | | 2017 | | [place], [place] | | syndrome; Essential | | | | [address] | | hypertension, | | | | [phone] | | benign; Insomnia due | | [...] 01/05/171955 Date of Service: 01/05/171131 Status: Signed Mining Helper: Matty Vincent MD (Physician) Related Notes: Original Note by Matty Vincent MD (Physician) filed at 01/05/17 11 43 [facility] Service: Hospitalist Physician Discharge Summary Pt: [...] who underwent left upper shoulder replacement in [place], [place] 2 days ago. During surgery, the [...] hours. No results for input(s): PHART, PO2ART, RIX5CTU, M8UUZDUC, BEART in the last 168 hours. No [...] Date of Service: 01/05/17 1607 Status: Signed Mining Helper: Cyn Rivas RN (Registered Nurse) Discharge information discussed with pt and son. All questions answered and pt stated under standing. IV and telemetry discontinued. Pt going home with son. Cyn Rivas RN 01/05/2017 onver chelsey Transaction, Provider Unknown - 01/05/2017 2:29 PM PDT Case Management by Deloris Aguilar RN at 01/05/17 8833 Author: Deloris Aguilar RN Service: (none) Author Type: Registered Nurse Filed: 01/05/17 8379 Date of Service: 01/05/178 Status: Signed Mining Helper: Deloris Aguilar RN (Registered Nurse) Discharge planning: GIANNA spoke to Dr. Livingston's office, pt is not current with this physician, she presently see s Dr. Henry Hogan [phone]. GIANNA spoke to staff at office, requested clinicals faxed to off ice, also informed her pt will require MD's signature for orders since the discharge plan is home with home health PT/OT. GIANNA placed call to [facility], spoke to dental financial coordinator, informed CM they are accept ing pts on a case by case basis. Signed F2F, facesheet and chart notes faxed to [facility]. GIANNA will FU. onver chelsey Transaction, Provider Unknown - 01/05/2017 11:02 AM PDT Therapy Progress Note by Frederic Verma PT at 01/05/17 1102 Author: Frederic Verma PT Service: (none) Author Type: Physical Therapist Filed: 01/05/17 1207 Date of Service: 01/05/17 110 Status: Signed Mining Helper: Frederic Verma PT (Physical Therapist) 01/05/17 1102 PT Last Visit PT Received On 01/05/17 Reason for Treatment Other (comment) (L TSA; L axillary bypass graft) Requires PT Follow Up Yes Follow up PT Only? No Focus for Next Treatment Bed Mobility Technique Assistance Required 1 person Hydraulic Chair Assembler Needed No Precautions UE Precaution(s) LUE Precautions/WB [...] Barriers to Discharge Physical Deficits Impacting Functional [place] Abiodun Bustos PA-C - 01/05/2017 10:33 AM PDTFormatting of this note might be differen t from the original. Progress Notes by Abiodun Mcadams PA-C at 01/05/17 1033 Author: Abiodun Mcadams PA-C Service: Orthopedic Surgery Author Type: Physician Jessenia saeed - Certified Filed: 01/05/17 1037 Date of Service: 01/05/17 1033 Status: Signed Mining Helper: Abiodun Mcadams PA-C (Physician Compensation Business Partner - Certified) [facility] Service: Orthopedic Surgery Progress Note Hospital [...] to follow up with Dr Rausch in [facility] for orthopaedic care. Continue pain control ASA [...] 01/05/17916 Date of Service: 01/05/17913 Status: Signed Mining Helper: Deloris Aguilar RN (Registered Nurse) Discharge planning: CM called Dr. Siddhartha Livingston's office ([phone], F:[phone]) per pt's request to establish care. Scrapper requested H & P and clinicals faxed before making a decision. onver chelsey Transaction, Provider Unknown - 01/05/2017 6:56 AM PDT Nurse Progress Note by Anusha Casey RN at 01/05/17 0656 Author: Anusha Casey RN Service: (none) Author Type: Registered Nurse Filed: 01/05/1757 Date of Service: 01/05/17655 Status: Signed Mining Helper: Anusha Casey RN (Registered Nurse) No acute [...] 01/04/171848 Date of Service: 01/04/171845 Status: Signed Mining Helper: Melany Ortega RN (Registered Nurse) Patient voided [...] Date of Service: 01/04/17 1532 Status: Addendum Mining Helper: Hu Quintero MD (Physician) Related Notes: Original Note by Sarkis Garcia DNP (Nurse Practitioner) filed at 01/04/17 9216 [facility] Service: Vascular Surgery Progress Note Hospital Day: LOS: 1 day Post-Op Day: 1 Day Post-Op SUBJECTIVE Patient Summary: Ms. Carrizales is a 81 year old female presented to [facility] for elective left shoulder replacement. The patient's left axillary artery was accidental ly injured during the surgery. The patient was referred to [facility] fo r vascular injury repair. The patient was kept intubated and sedated, life-flight to [facility] and brought to the operating room [...] Notes by Abiodun Mcadams PA-C at 01/04/17 1012 Author: Abiodun Mcadams PA-C Service: Orthopedic Surgery Author Type: Physician Jessenia saeed - Certified Filed: 01/04/17 1409 Date of Service: 01/04/17 6515 Status: Signed Mining Helper: Abiodun Mcadams PA-C (Physician Compensation Business Partner - Certified) [facility] Service: Orthopedic Surgery Progress Note Hospital [...] 1449 Date of Service: 01/04/171226 Status: Signed Mining Helper: Frederic Verma PT (Physical Therapist) 01/04/17 1227 PT Last Visit PT Received On 01/04/17 Reason for Treatment Other (comment) (L TSA; L axillary bypass graft) Requires PT Follow Up Yes Follow up PT Only? No Focus for Next Treatment Bed Mobility Technique;Transfer Technique (Progress gait training) PT Eval/Reassessment Date 01/04/17 Assistance Required 1 person Hydraulic Chair Assembler Needed No Home Environment Additional Comments See OT note for details; reviewed with patient. Prior Function Level of [place] Modified independent with functional mobility;Assist with IADLs;Drwildai william in community;Modified independent with ADLs Falls in Past Year Yes ((with injuries to head, hip and foot, questioned foot fx) Lives With Adult child(ambrocio) Receives Help From [employer] ADL Assistance Independent Home ADL's (Son and [...] Barriers to Discharge Physical Deficits Impacting Functional [place] 01/04/17 1227 PT Last Visit PT Received On 01/04/17 Reason for Treatment Other (comment) (L TSA; L axillary bypass graft) Requires PT Follow Up Yes Follow up PT Only? No Focus for Next Treatment Bed Mobility Technique;Transfer Technique (Progress gait training) PT Eval/Reassessment Date 01/04/17 Assistance Required 1 person Hydraulic Chair Assembler Needed No Precautions UE Precaution(s) LUE Precautions/WB [...] Barriers to Discharge Physical Deficits Impacting Functional [place] Low - 98798 Moderate - 43700 High - 24844 History no personal factors &/or comorbidities 1-2 personal factors &/or comorbidities 3 o r more personal factors &/or comorbidities Examination 1-2 elements 3 elements 4 or more elements Clinical Presentation stable evolving unstable Clinical Decision Making Complexity: Low 27083 Moderate 71868 High 97589 onver chelsey Giron, Provider Unknown - 01/04/2017 11:55 AM PDT Therapy Progress Note by CHINA Metz at 01/04/17 8497 Author: CHINA Metz Service: (none) Author Type: Occupational Therapist Filed: 01/04/17 1157 Date of Service: 01/04/171154 Status: Signed Mining Helper: CHINA Metz (Occupational Therapist) 01/04/17 1040 OT Last Visit OT Received On 01/04/17 Reason for Treatment Other (comment) (TSA) Requires OT Follow Up Yes OT Eval/Reassessment Date 01/04/17 Assistance Required 1 person Hydraulic Chair Assembler Needed No Family/Caregiver Present No Precautions UE Precaution(s) LUE Precautions/WB LUE NWB;No active shoulder flexion;No active shoulder abduction;No ER greate r than 30 degrees;Sling Other Comments Comments Per H&P, "81 year old female presented to [facility] for elective left shoulder replacement. The patient's left axillary artery was accidentally injured during the surgery. The patient was referred to [facility] for vascular injury rep air. The patient was kept intubated and sedated, life-flight to [facility] and br ought to the operating [...] wheeled;Cane single point Prior Function Level of [place] Modified independent with functional mobility;Assist with IADLs;Juan Antonio thomas in community;Modified independent with ADLs Falls in Past Year Yes (with injuries to head, hip and foot, questioned foot fx) Lives With Adult child(ambrocio) Receives Help From [employer] ADL Assistance Independent Home ADL's (Son and [...] sensation;Decreased fine motor control;Decreased self-care trans;Decreased high-le tanisha ADLs Prognosis Good;With continued OT s/p acute [...] Will need assist for ADL's Low - 70669 Moderate - 06530 High - 09931 History Expanded review of medical records; additional review of physical, cognitive, or p sychosocial skills Examination Identification of 3-5 performance deficits Decision Making May present with comorbidities; minimal to moderate modification of tasks or assistance is needed to complete eval Clinical Decision Making Complexity: Moderate 41413 onver chelsey Transaction, Provider Unknown - 01/04/2017 11:23 AM PDT Therapy Progress Note by Frederic Verma, PT at 01/04/17 1123 Author: Frederic Verma PT Service: (none) Author Type: Physical Therapist Filed: 01/04/17 1123 Date of Service: 01/04/171122 Status: Signed Mining Helper: Frederic Verma PT (Physical Therapist) 01/04/17 1123 [...] 1130 Date of Service: 01/04/170 Status: Signed Mining Helper: Deloris Aguilar RN (Registered Nurse) Met with [...] Carrizales Relationship to Patient Son Phone number [phone] Mental Status Oriented Prior functional status Fully independent with adls and iadls. Power of Sr. Consultant No Anticipated Discharge Plan Post Acute Care [...] process of finding a PCP. Patient's insurance: Medicare/Reds10. Coverage concerns: None. Medication coverage/concerns: Yes/Janice Gage. Rx Bedside Delivery: Community resources utilized / [...] 01/04/17442 Date of Service: 01/04/17441 Status: Signed Mining Helper: Babar Castillo RN (Registered Nurse) No acute [...] 01/03/171917 Date of Service: 01/03/171917 Status: Signed Mining Helper: Aleta Jones RPH (Pharmacist) Renal Dosing Monitoring: Mellisa Carrizales 81 y.o. female Pharmacy dosing for renal function per Dr. Hopper Plan per protocol: No scr available at this time Pharmacy will continue monitoring patient for appropriate dosing per renal function. 01/03/2017 7:18 PM Pharmacist: ALETA JONSE onversio n Transaction, Provider Unknown - 01/03/2017 6:48 PM PDTFormatting of this note might be di fferent from the original. Nurse Progress Note by Melany Ortega RN at 01/03/171847 Author: Melany Ortega RN Service: (none) Author Type: Registered Nurse Filed: 01/03/171848 Date of Service: 01/03/171847 Status: Signed Mining Helper: Melany Ortega RN (Registered Nurse) Report received from BOILER INSTALLER in SBAR format, all questions addressed. Patient to transfer t o room 4439. MELANY ORTEGA RN docume nted in this encounter H&P Notes Mery Lynne - 01/04/2017 7:23 PM PDT H&P by Mery Lynne MD at 01/04/171922 Author: Mery Lynne MD Service: (none) Author Type: Physician Filed: 01/04/171940 Date of Service: 01/04/171922 Status: Signed Mining Helper: Mery Lynne MD (Physician) [facility] Service: Hospitalist Admission History & Physical [...] from Vascular surgery and Orthopedic surgery in [facility] and will be managed by the Hospitalist to coordinate discharge planning for her retur n to [facility] where she says she will follow up for PT/OT and with Dr. Rausch her [facility] surgeon there. She also has [...] AXILLARY ARTERY; Surgeon: Hu Quintero MD; Location: [facility]; Service: Vascular; Laterality: Left; Left axillary exploration and axillary artery repair. Left saphenous vein harvest Shoulder surgery Left 01/03/2017 Procedure: SHOULDER - TOTAL; Surgeon: Dariel Hendrix MD; Location: [facility] OR; Ser vice: Orthopedics; Laterality: Left; [...] H&P by Hu Quintero MD at 01/03/17 1262 Author: Hu Quintero MD Service: Vascular Surgery Author Type: Physician Filed: 01/03/17 1502 Date of Service: 01/03/17 1442 Status: Signed Mining Helper: Hu Quintero MD (Physician) [facility] Service: Vascular Surgery Admission History & Physical Date of Admission: 01/03/2017 Reason for Admission: Left axillary artery injury History Obtained From: chart review CHIEF COMPLAINT: Left axillary artery injury HISTORY OF PRESENT ILLNESS 81 year old female presented to [facility] for elective left shoulder replacemen t. The patient's left axillary artery was accidentally injured during the surgery. The patie nt was referred to [facility] for vascular injury repair. The patient wa s kept intubated and sedated, life-flight to [facility] and brought to the operat ing [...] revascularize the left arm. Dr. Hendrix, [facility] surgeon will resume the total shoulder replacement after revascularization is compl eted. Hu Quintero MD 01/03/2017 documented in this enco unter Miscellaneous Notes Op Note - Dariel Hendrix MD - 01/03/2017 6:19 PM PDT Op Note by Dariel Hendrix MD at 01/03/171818 Author: Dariel Hendrix MD Service: Orthopedic Surgery Author Type: Physician Filed: 01/03/171822 Date of Service: 01/03/171818 Status: Signed Mining Helper: Dariel Hendrix MD (Physician) [facility] Service: Orthopedic Surgery Post Op Note Patient is status post Left TSA following axillary artery bypass.. Subjective: Feels well, no pain. I discussed the case with her, and reasoning for the trans philip to [facility] for the procedures. She expressed understanding. Objective: [...] 01/03/171746 Date of Service: 01/03/171722 Status: Signed Mining Helper: Dariel Hendrix MD (Physician) [facility] Service: Orthopedic Surgery Operative Report PREOPERATIVE DIAGNOSIS: Chronic left glenohumeral primary osteoarthritis ICD M19.012 POSTOPERATIVE DIAGNOSIS: Chronic left glenohumeral primary osteoarthritis PROCEDURE: Left total shoulder arthroplasty, CPT 83141 SURGEON: Dariel Hendrix MD SHROUD LINE TIER: Abiodun Mcadams PA-C ANESTHESIA: General endotracheal with [...] year old female, who was transferred from [facility] to [facility] with a intraoperative vascular complication. She [...] suture tails to each other while my itinerant teacher assistant held appropriat e tension on the [...] 1057 Date of Service: 01/03/171626 Status: Signed Mining Helper: Misbah Lieberman MD (Physician) Related Notes: Original Note by Misbah Lieberman MD (Physician) filed at 01/03/17 1628 The transfer center at [facility] called me earlier on today regarding [...] Date of Service: 01/03/17 1510 Status: Signed Mining Helper: Paolo Valdovinos MD (Physician) [facility] Service: Vascular Surgery Operative Note Pre-operative Diagnosis: Left axillary artery injury and acute left upper extremity ischem ia Post-operative Diagnosis: Same Procedure(s): 1. Left mid axillary artery ligation 2. Left axillary artery thrombectomy 3. Open harvest of left great saphenous vein 4. Left axillary artery to brachial artery bypass with reversed saphenous vein graft Co-Surgeons: Paolo Valdovinos MD Compensation Business Partner(s): PRESTON Pruitt Anesthesia: General endotrachial anesthesia Estimated [...] Date of Service: 01/03/17 1503 Status: Addendum Mining Helper: Hu Quintero MD (Physician) Related Notes: Original Note by Hu Quintero MD (Physician) filed at 01/03/17 1632 [facility] Service: Vascular Surgery Operative Note NAME: Mellisa Carrizales BILLING #: [id number] MR #: [id number] : 1935 DATE OF PROCEDURE: 01/03/2017 CO-SURGEONS: Hu Quintero MD ; Paolo Valdovinos MD SHROUD LINE TIER: PRESTON Pruitt PREOPERATIVE DIAGNOSIS: 1. left axillary [...] supine position. The patient was transferred to [facility] with endotracheal intubation and general anesthesia. The patient s left shoulder, ches t and arm as well as bilateral groins and thighs were prepped sterilely and draped in the st andard fashion. Appropriate time out was performed whereby we identified the patient and als o the site of the surgery. The patient received 6000 Units intravenous heparin at [facility] 90 minutes prior. This part of the [...] +--------+ + + + | IBAN ANTELMO DNENIS, | Routin | 01/03/2017 | | Results [...] - 1.030 | EXTERNAL | | | [place], | | | LAB | | | [...] | | | Urine | performed at [facility], [address] | | LAB | | | | [address], | | | | | | [place] [address] | | | | + + + [...] [place] | | | | | | [address] | | | | + + + [...] EXTERNAL | | | | performed at [facility], [address] | | LAB | | | | [address], | | | | | | [place] [address] | | | | + + + [...] [address], | | | | | | [place] [address] | | | | + + + [...] | | | Basophils | performed at [facility], [address] | K/uL | LAB | | | | [address], | | | | | | [place] [address] | | | | + + + [...] | | | | | [place] [address] | | | | + + + [...] | | | POC | performed at [facility];[address] | g/dL | LAB | | | | [address];[place], [place] | | | | | | [address] | | | | + + + [...] | | | POC | performed at [facility];888 | g/dL | LAB | | | | [address];[place], [place] | | | | | | [address] | | | | + + + [...] | | | POC | performed at [facility];[address] | g/dL | LAB | | | | [address];[place], [place] | | | | | | [address] | | | | + + + [...]
--- OUTSIDE RECORDS SUMMARY | ~2020-05-20 | XMS | Encounter Summary ---
Demographics + + + | Address | [address] | | | [place] [address] | + + + | Home Phone [...] + + + | Author | [facility] | | | and [place] | + + + | Organization | [facility] | | [...] Team Providers + +------+ + | Care Car Changer Name | Role | Phone | + [...] | | [address] | [place] [address] | | | | | [place] | [phone] | | | | | [address] | | | | | | [phone] | | | +--------+ + + + [...] (New onset)? No 4.Taking pain meds (Name/Dosage)? [place] 10/325mg 1 tab every 8 hours 5.Loss [...]
--- OUTSIDE RECORDS SUMMARY | ~2020-05-20 | XMS | Encounter Summary ---
Demographics + + + | Address | [address] | | | [place] [address] | + + + | Home Phone [...] Team Providers + +------+ + | Care Biologics Specialist Name | Role | Phone | + +------+ + | Paul Hogan MD | PCP | | + +------+ + Reason for Visit +--------+--------+ + | Reason | Onset | Comments | | | Date | | +--------+--------+ + | Other | 05/19/ | | | | 2014 | | +--------+--------+ + Encounter Details +--------+ + + + + | Date | Type | Department | Care Team | Description | +--------+ + + + + | 05/19/ | Telephone | [facility] [place] | Umer Garcia MD | Other | | 2015 | | NEUROSURGERY [address] | [address] | | | | | [address] | [place] [address] | | | | | [place] | [phone] | | | | | [address] | | | | | | [phone] | | | +--------+ + + + [...] Notes Telephone Encounter - Shirley Shell - 05/19/2015 11:47 AM PDTS/P C5-C7 ACDF 04/30/15 Mellisa's daughter is not on her verbal release. Spoke to Mellisa. Advised Mellisa that she will discuss aquatic therapy at her next office visit. Per shaun alan post-op guidelines: Can begin driving when she is no longer taking pain medication or mus harlan relaxants. She verbalized understanding. 11:4 9 AM PDTTelephone Encounter - Em Lange - 05/19/2015 11:20 AM PDTGoldie daughter cassi led on her behalf, she is wanting to know when she can start driving and when she can start her aquatic therapy again , please advise.Electronically signed by Em Lange at 05/19 11:21 AM PDTdocumented in this encounter Plan of Treatment Not on filedocumented as of this encounter Visit Diagnoses Not on filedocumented in this encounter"
--- OUTSIDE RECORDS SUMMARY | ~2020-05-20 | XMS | Encounter Summary ---
Demographics + + + | Address | [address] | | | [place] [address] | + + + | Home Phone [...] Team Providers + +------+ + | Care Coin Purse Assembler Name | Role | Phone | [...] | [address] | [place] [address] | | | | | [place] | [phone] | | | | | [address] | | | | | | [phone] | | | +--------+--------+ + + + [...] Miscellaneous Notes Telephone Encounter - Mulu Zaldivar, Manager Web Application - 04/28/2015 9:33 AM [facility] ed to give surgical check in instructions. [...] do not wear jewelry, contact lenses, nail armenian (on fingers or toes), or make-up to [...]
--- OUTSIDE RECORDS SUMMARY | ~2020-05-20 | XMS | Encounter Summary ---
Demographics + + + | Address | [address] | | | [place] [address] | + + + | Home Phone [...] Team Providers + +------+ + | Care Adzing And Boring Machine Helper Name | Role | Phone | [...] [address] [place], [place] | lumbar fusion | | | | [place], [place] | [address] | | | | | [address] | | | | | | [phone] | | | +--------+ + + + [...] [address] | [place] | [phone] | | [facility] | | [address] | | | - IMAGING | | [...]
--- OUTSIDE RECORDS SUMMARY | ~2020-05-20 | XMS | Encounter Summary ---
Demographics + + + | Address | [address] | | | [place] [address] | + + + | Home Phone [...] Team Providers + +------+ + | Care Signal Worker Helper Name | Role | Phone | + +------+ + PCP | Unavailable | + +------+ + Encounter Details +--------+ + + + + | Date | Type | Department | Care Team | Description | +--------+ + + + + | 01/23/ | Hospital | [facility] | Conversion | Extremity | | 2012 | Encounter | [facility]ENTER | Transaction, | atherosclerosis with | | | | CLINICAL DECISION | Provider Unknown | resting pain (HCC); | | | | [address] | [phone] | Hypertension | | | | [place], [place] | | | | | | [address] | Derrell Arellano, | | | | | [phone] | MD [address] | | | | | | [address] [place], [place] | | | | | | [address] | | | | | | | [...] 01/23/131800 Date of Service: 01/23/131799 Status: Signed Cupola Tender Helper: Mulu Reyes RN (Registered Nurse) Pt discharged [...] 1046 Date of Service: 01/23/131041 Status: Signed Cupola Tender Helper: Derrell Arellano MD (Physician) [facility] Service: Interventional Radiology Admission History & [...] or ben a. Interdigital webspaces intact.PULSES: RIGHT: STATION AGENT 2, Popliteal 1, PT 0, DP 0. LEFT: STATION AGENT 2, Popliteal 0, PT 0, DP 0.Skin: [...] infection, need for transfusion, surgery, embolization, stroke, [place] and ) and alternatives with the patient. [...] | | adequate conscious sedation and independent group home | | | supervision performed throughout the [...] | | | needle and exchanged for 4-Czech micropuncture sheath over 0.018 | | | wire. 4-Czech micropuncture sheath was exchanged for 4-Czech by | | | 11-cm sheath over 0.035, 3-mm J-wire. Subsequently, 4-Czech Omni | | | flush catheter placed [...] to perform endovascular intervention. | | | 4-Czech Omni flush catheter was exchanged for 0.035, Martinez wire | | | with its tip in proximal left superficial femoral artery. | | | Subsequently, catheter was removed and 4-Czech by 11 cm sheath was | | | exchanged for 5-Czech by 45-cm destination sheath with its tip in | | | proximal left superficial femoral artery. Subsequently, using | | | combination of 4-Czech vertebral catheter and 0.035, Martinez wire both [...] adequate conscious sedation and | | independent group home supervision performed throughout the procedure. No adverse [...] accessed using micropuncture needle and exchanged for 4-Czech | | micropuncture sheath over 0.018 wire. 4-Czech micropuncture sheath was exchanged for | | 4-Czech by 11-cm sheath over 0.035, 3-mm J-wire. Subsequently, 4-Czech Omni flush | | catheter placed with [...] decided to perform endovascular | | intervention. 4-Czech Omni flush catheter was exchanged for 0.035, Martinez wire with its | | tip in proximal left superficial femoral artery. Subsequently, catheter was removed and | | 4-Czech by 11 cm sheath was exchanged for 5-Czech by 45-cm destination sheath with | | its tip in proximal left superficial femoral artery. Subsequently, using combination of | | 4-Czech vertebral catheter and 0.035, Martinez wire both [...] | | adequate conscious sedation and independent group home | | | supervision performed throughout the [...] | | | needle and exchanged for 4-Czech micropuncture sheath over 0.018 | | | wire. 4-Czech micropuncture sheath was exchanged for 4-Czech by | | | 11-cm sheath over 0.035, 3-mm J-wire. Subsequently, 4-Czech Omni | | | flush catheter placed [...] to perform endovascular intervention. | | | 4-Czech Omni flush catheter was exchanged for 0.035, Martinez wire | | | with its tip in proximal left superficial femoral artery. | | | Subsequently, catheter was removed and 4-Czech by 11 cm sheath was | | | exchanged for 5-Czech by 45-cm destination sheath with its tip in | | | proximal left superficial femoral artery. Subsequently, using | | | combination of 4-Czech vertebral catheter and 0.035, Martinez wire both [...] adequate conscious sedation and | | independent group home supervision performed throughout the procedure. No adverse [...] accessed using micropuncture needle and exchanged for 4-Czech | | micropuncture sheath over 0.018 wire. 4-Czech micropuncture sheath was exchanged for | | 4-Czech by 11-cm sheath over 0.035, 3-mm J-wire. Subsequently, 4-Czech Omni flush | | catheter placed with [...] decided to perform endovascular | | intervention. 4-Czech Omni flush catheter was exchanged for 0.035, Martinez wire with its | | tip in proximal left superficial femoral artery. Subsequently, catheter was removed and | | 4-Czech by 11 cm sheath was exchanged for 5-Czech by 45-cm destination sheath with | | its tip in proximal left superficial femoral artery. Subsequently, using combination of | | 4-Czech vertebral catheter and 0.035, Martinez wire both [...] | | adequate conscious sedation and independent group home | | | supervision performed throughout the [...] | | | needle and exchanged for 4-Czech micropuncture sheath over 0.018 | | | wire. 4-Czech micropuncture sheath was exchanged for 4-Czech by | | | 11-cm sheath over 0.035, 3-mm J-wire. Subsequently, 4-Czech Omni | | | flush catheter placed [...] to perform endovascular intervention. | | | 4-Czech Omni flush catheter was exchanged for 0.035, Martinez wire | | | with its tip in proximal left superficial femoral artery. | | | Subsequently, catheter was removed and 4-Czech by 11 cm sheath was | | | exchanged for 5-Czech by 45-cm destination sheath with its tip in | | | proximal left superficial femoral artery. Subsequently, using | | | combination of 4-Czech vertebral catheter and 0.035, Martinez wire both [...] adequate conscious sedation and | | independent group home supervision performed throughout the procedure. No adverse [...] accessed using micropuncture needle and exchanged for 4-Czech | | micropuncture sheath over 0.018 wire. 4-Czech micropuncture sheath was exchanged for | | 4-Czech by 11-cm sheath over 0.035, 3-mm J-wire. Subsequently, 4-Czech Omni flush | | catheter placed with [...] decided to perform endovascular | | intervention. 4-Czech Omni flush catheter was exchanged for 0.035, Martinez wire with its | | tip in proximal left superficial femoral artery. Subsequently, catheter was removed and | | 4-Czech by 11 cm sheath was exchanged for 5-Czech by 45-cm destination sheath with | | its tip in proximal left superficial femoral artery. Subsequently, using combination of | | 4-Czech vertebral catheter and 0.035, Martinez wire both [...] | | adequate conscious sedation and independent group home | | | supervision performed throughout the [...] | | | needle and exchanged for 4-Czech micropuncture sheath over 0.018 | | | wire. 4-Czech micropuncture sheath was exchanged for 4-Czech by | | | 11-cm sheath over 0.035, 3-mm J-wire. Subsequently, 4-Czech Omni | | | flush catheter placed [...] to perform endovascular intervention. | | | 4-Czech Omni flush catheter was exchanged for 0.035, Martinez wire | | | with its tip in proximal left superficial femoral artery. | | | Subsequently, catheter was removed and 4-Czech by 11 cm sheath was | | | exchanged for 5-Czech by 45-cm destination sheath with its tip in | | | proximal left superficial femoral artery. Subsequently, using | | | combination of 4-Czech vertebral catheter and 0.035, Martinez wire both [...] adequate conscious sedation and | | independent group home supervision performed throughout the procedure. No adverse [...] accessed using micropuncture needle and exchanged for 4-Czech | | micropuncture sheath over 0.018 wire. 4-Czech micropuncture sheath was exchanged for | | 4-Czech by 11-cm sheath over 0.035, 3-mm J-wire. Subsequently, 4-Czech Omni flush | | catheter placed with [...] decided to perform endovascular | | intervention. 4-Czech Omni flush catheter was exchanged for 0.035, Martinez wire with its | | tip in proximal left superficial femoral artery. Subsequently, catheter was removed and | | 4-Czech by 11 cm sheath was exchanged for 5-Czech by 45-cm destination sheath with | | its tip in proximal left superficial femoral artery. Subsequently, using combination of | | 4-Czech vertebral catheter and 0.035, Martinez wire both [...] atherosclerosis with resting pain (HCC) Atherosclerosis of [place] arteries | | of the extremities with rest pain | + + | Hypertension Unspecified essential hypertension | + + documented in this encounter
--- OUTSIDE RECORDS SUMMARY | ~2020-05-20 | XMS | Encounter Summary ---
Demographics + + + | Address | [address] | | | [place] [address] | + + + | Home Phone [...] Team Providers + +------+ + | Care Employment Interviewer Name | Role | Phone | [...] | | | | | with | [facility], | [place], [place] | | | | | radiculopath | [place] [address] | [address] | | | | | y Cervical | Phone: | Phone: | | | | | spondylosis | [phone] | [phone] | | | | | with | Fax: | Fax: | | | | | myelopathy | [phone] | [phone] | | | | | Degenerative | [...] | | [address] | [place] [address] | (Primary Dx); | | | | [place] | [phone] | 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
--- OUTSIDE RECORDS SUMMARY | ~2020-05-20 | XMS | Encounter Summary ---
Demographics + + + | Address | [address] | | | [place] [address] | + + + | Home Phone | | + + + | Preferred Language | Unknown | + + + | Marital Status | | + + + | Adventist Affiliation | 1028 | + + + | Race | White | + + + | Ethnic Group | Not or | + + + Author + + + | Author | [facility] | | | and [place] | + + + | Organization | [facility] | | [...] Team Providers + +------+ + | Care Bar Finish Operator Name | Role | Phone | + +------+ + PCP | Unavailable | + +------+ + Encounter Details +--------+ + + + + | Date | Type | Department | Care Team | Description | +--------+ + + + + | 06/03/ | [facility] | [facility] | David Lyons | | | 2008 | Encounter | MED CTR SLEEP | MD [place] [address] | | | | | [place] [address] | [place] | | | | | [place] | [place] [address] | | | | | [address] | [phone] | | | | | [phone] | | | +--------+ + + + [...]
--- OUTSIDE RECORDS SUMMARY | ~2020-05-20 | XMS | Encounter Summary ---
Demographics + + + | Address | [address] | | | [place] [address] | + + + | Home Phone [...] Team Providers + +------+ + | Care Insurance Advisor Name | Role | Phone | [...] | | | IMAGING [address] | [place] | | | | | [address] [place] | [place] [address] | | | | | [place] [address] | | | | | | [phone] | | | +--------+ + + + [...]
--- OUTSIDE RECORDS SUMMARY | ~2020-05-20 | XMS | Encounter Summary ---
Demographics + + + | Address | [address] | | | [place] [address] | + + + | Home Phone [...] Team Providers + +------+ + | Care Sign Wirer Name | Role | Phone | + +------+ + PCP | Unavailable | + +------+ + Encounter Details +--------+ + + + + | Date | Type | Department | Care Team | Description | +--------+ + + + + | 06/16/ | [facility] | [facility] | David Lyons | | | 2008 | Encounter | MED CTR SLEEP | MD [place] | | | | | [place] [address] | [address] | | | | | [place] | [place] [address] | | | | | [address] | [phone] | | | | | [phone] | | | +--------+ + + + [...]
--- OUTSIDE RECORDS SUMMARY | ~2020-05-20 | XMS | Encounter Summary ---
Demographics + + + | Address | [address] | | | [place] [address] | + + + | Home Phone [...] Team Providers + +------+ + | Care Chain Pegger Name | Role | Phone | + [...] | | [address] | [place] [address] | Appointment | | | | [place] | [phone] | | | | | [address] | | | | | | [phone] | | | +--------+ + + + [...]
--- OUTSIDE RECORDS SUMMARY | ~2020-05-20 | XMS | Encounter Summary ---
Demographics + + + | Address | [address] | | | [place] [address] | + + + | Home Phone [...] Team Providers + +------+ + | Care Wet End Helper Name | Role | Phone | + +------+ + | Paul Hogan MD | PCP | | + +------+ + Encounter Details +--------+ + + + + | Date | Type | Department | Care Team | Description | +--------+ + + + + | 04/14/ | Hospital | [facility] | Aric Wilcox | | | 2016 | Encounter | MED CTR XRAY [address] | [address] | | | | | [place] | [address] [place] | | | | | [place] [address] | [id number] | | | | | [phone] | | | +--------+ + + + [...] L4-S1, with disc spacer placement at | [facility] | | the intervening levels, without [...] [address] | [place] | [phone] | | [facility] | | [address] | | | - IMAGING | | | | + + + + + documented in this encounter Visit Diagnoses Not on filedocumented in this encounter"
--- OUTSIDE RECORDS SUMMARY | ~2020-05-20 | XMS | Encounter Summary ---
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 Then, look for Anterior Cervical Discectomy and Fusion (ACDF). documented in this encounter Progress Notes Umer Garcia MD - 04/24/2015 12:07 PM PDTFormatting of this note might be different from t he original. Umer Garcia MD [address] [place] [address], [address] [place], [place] [id number] FAX: NEUROSURGERY HISTORY AND PHYSICAL EXAMINATION CHIEF [...] has no apparent deficits with short or watermaster memory. MOTOR EXAM: (5 IS NORMAL) * Indicates pain limited MUSCLE/ MOVEMENT: RIGHT LEFT Deltoids 5 5 Biceps 5 5 Triceps 5 5 Wrist Flexion 5 5 Wrist Extension 5 5 Median Intrinsics 5 5 Ulnar Intrinsics 5 5 Slicing Machine Feeder Strength 5 5 Hip Flexion 5 5 [...]
--- OUTSIDE RECORDS SUMMARY | ~2020-05-20 | XMS | Encounter Summary ---
Demographics + + + | Address | [address] | | | [place] [address] | + + + | Home Phone [...] Team Providers + +------+ + | Care Retirement Actuary Name | Role | Phone | + [...] | | | | CENTER [address] | [place], [place] | Elevated blood | | | | [place], [place] | [address] | pressure reading; | | | | [address] | | Chronic left hip | | | | [phone] | | pain; Weakness | | | [...] sent through Care Everywhere.Weakness (Uncer tain Cause) (Nepalese)Chest Pain, Uncertain Cause (Nepalese)documented in this encounter Medications at Time of [...] Kang MD - 06/21/2019 2:31 PM PDT [facility] Mellisa Carrizales Emergency Department Encounter Note [address] [place] [address] PCP:Ethan Solomon MD [phone] DIAGNOSIS: ICD-10-CM ICD-9-CM [...] and evaluated at the local hospital in [facility]. Was seen and evaluated an d disposition home. Subsequent to that was seen and evaluated at an urgent care center khoa suggs she was seen and evaluated for very similar complaint of this chest discomfort. And this was prior to her having a scheduled hip replacement surgical intervention. The surgical int ervention was canceled with her recent episodes of chest pain with referral to cardiology in the next couple weeks. She presents today with her son after [facility]. First troponin was negative [...] history that includes Hysterectomy; bladder repair; Shoul agyatri arthroscopy (Bilateral); Cervical spine surgery (N/A, 04/30/2015); back surgery (Right); Foot surgery; Tonsillectomy and adenoidectomy; Lumbar spine surgery (Left, 12/14/2015); should er surgery (Left, 01/03/2017); Hysterectomy; hiatal hernia repair; Appendectomy; other surgi cassi history (Left, 01/03/2017); and shoulder surgery (Left, 01/03/2017). CURRENT MEDICATIONS CREPE SOLE SCOURER Home Medications Medication Sig Acetaminophen (TYLENOL ARTHRITIS [...] 35 Normal sinus rhythm at 75 Normal NE and JS LAD with IRBBB with voltage [...] is not consistent with acute ST elevation NV. There is no acute ischemic changes noted, Interpreted by Mehran Mckeon DO. 17:29 Sinus rhythm at 73 bpm with a PVC. Normal NE and JS Ataxic deviation with LVH by [...] leads V3-4 Confirmed by URI GUTIERREZ MD ([id number]) on 06/22/2019 8:19:48 AM ECG 12 lead [...] compared with ECG of 21-JUN-2019 14:34, (Unconfirmed) NE interval has increased Confirmed by URI GUTIERREZ MD ([id number]) on 06/22/2019 8:20:50 AM IMAGING STUIDES (X-Rays [...] lymphadenopathy. No acute subcutaneous abnormality. Mediastinum and slaly: No lymphadenopathy. Leftward shift of the mediastinum. [...] were reviewed along with EMS notes and prison record s if applicable. (See chart for [...] Contact information: [address] [place] [address] [facility]. Specialty: Emergency Medicine Why: As needed Contact information: [address] [facility] [address] Jemal Park MD. Specialty: Cardiology Why: Please call Monday to arrange follow-up for your recent episodes of chest pain Contact information: [address] [facility] [address] Discharge Medication List as of 06/21/2019 18:17 Mehran Mckeon. This document has been prepared with a voice recognition system. The possibility of "sound alike" chip tester errors, addition and/or deletions may occur. If [...] | | | | | | [employer] | | | | | [...] [address] | [place] | [phone] | | [facility] | | [address] | | | - LABORATORY | | [...] | | | | | | 14:34, (Unconfirmed)NE | | | | | | interval has | | | | | | increasedConfirmed by | | | | | | URI GUTIERREZ MD ([id number]) | | | | | | on [...] | | Lymphocytes | | | [facility] | | [...] [address] | [place] | [phone] | | [facility] | | [address] | | | - LABORATORY | | [...] | | | | | | [employer] | | | | | [...] [address] | [place] | [phone] | | [facility] | | [address] | | | - LABORATORY | | [...] 13 | 9 - 23 mg/dL | [facility] | | | | | | [facility] | | | | | | MEDICAL | | | | | | CENTER - | | | | | | LABORATORY | | + + + + + + | Creatinine | 0.62 | 0.55 - 1.02 | [facility] | | | | | mg/dL | [facility] | | | | | | MEDICAL | | | | | | CENTER - | | | | | | LABORATORY | | + + + + + + | eGFR, | >60Comment: GLOMERULAR | >=60 | [facility] | | | non- | FILTRATION | mL/min/1.73m2 | [facility] | | | [employer] | RATE,ESTIMATED | | MEDICAL | | | | mL/min/1.35c2Sdly than | | CENTER - | | [...] + | [facility] | [address] | [place] | [phone] | | [facility] | | [address] | | | - LABORATORY | | [...] | | | | | | [facility] | | | | | | MEDICAL [...] | | Count | | | [facility] | | | | | | [...] ST. | [address] | [place] | [phone] | | [facility] | | [address] | | | - LABORATORY | | [...] | | | | URI GUTIERREZ MD ([id number]) | | | | | | on [...]
[~2020-05-20 17:11] MED LIST changes: +ASPIRIN EC325 MG PO; +CELECOXIB200 MG PO; +EMERGEN-C 500500 MG PO; +FUROSEMIDE20 MG PO; +MULTIVITAMINS1 EAC7 PO; +NEURONTIN300 MG PO; +OXYCODONE HCL5 MG PO; +POTASSIUM CHLO10 ME1 PO; +POTASSIUM99 M1 PO; +ROSUVASTATIN CA10 MG PO; +TURMERIC500 M2 PO; +TYLENOL EXTRA500 MG PO
--- OUTSIDE RECORDS SUMMARY | 2020-05-20 17:14 | XMS ---
PreManage Notification: MARY DUKE Security Pari Mutuel Ticket Cashier Events No recent Security Events currently on file CRITERIA MET - [facility] CARE PROVIDERS There are no care providers on record at this time. Shruthi has no Care Guidelines for this patient. Juani VISIT COUNT (12 MO.) 1 [place] Michelle 3 [place] [place] TOTAL 4 NOTE: Visits indicate total known visits. ED/C VISIT TRACKING (12 MO.) 05/20/2020 17:12 [place] [place] TYPE: Emergency COMPLAINT: - VAGINAL PAIN 10/17/2019 11:13 [facility] [place] TYPE: Emergency COMPLAINT: - FALL, LEFT RIB PAIN DIAGNOSES: - Allergy status to penicillin - Other long-term (current) drug therapy - Other chest pain - Allergy status to narcotic agent [facility] DIAGNOSES: - Other chronic pain - Weakness - Pain in left hip - Chest pain, unspecified - Elevated blood-pressure reading, without diagnosis of hyperte - Chest Pain 06/21/2019 12:[address] [facility] [place] TYPE: Urgent Care DIAGNOSES: - History of falling - Other chest pain - Abnormal electrocardiogram [ECG] [EKG] - Follow-up 06/11/2019 12:55 [place] [place] TYPE: Emergency COMPLAINT: - CHEST PAIN DIAGNOSES: - Allergy status to narcotic agent status - Chest pain, unspecified - Other long-term (current) drug therapy - Chondrocostal junction syndrome [Tietze] - Allergy status to penicillin INPATIENT VISIT TRACKING (12 MO.) No inpatient visits to display in this time frame [email or web address]
[2020-05-20] MEDS ORDERED: KEFLEX500 MG PO (18:47)
== END 2020-05-20 19:55 | disposition home or self-care (01) ==
LOC: ED 17:11
PROC: 4A0D7LZ Measurement of Urinary Volume, Via Natural or Artificial Opening (ICD-10-PCS; principal; 2020-05-20)
PROC: 0T9B70Z Drainage of Bladder with Drainage Device, Via Natural or Artificial Opening (ICD-10-PCS; 2020-05-20)
DX: R33.9 Retention of urine, unspecified (principal); Z88.0 Allergy status to penicillin; Z88.5 Allergy status to narcotic agent; Z79.899 Other long term (current) drug therapy; Z79.82 Long term (current) use of aspirin
CPT/HCPCS: 51702; 51798; 80053; 81001; 83690; 85025; 99284-25; J0696; J2270

== ENCOUNTER 2020-05-22 14:09 | Emergency (ER) | payer MEDICARE, OTHER ==
[~2020-05-22] VITALS: Ht 165.1 cm; Wt 71.7 kg
--- OUTSIDE RECORDS SUMMARY | ~2020-05-22 | XMS | Encounter Summary ---
Demographics + + + | Address | [address] | | | [place] [address] | + + + | Home Phone | | + + + | Preferred Language | Unknown | + + + | Marital Status | | + + + | Quaker Affiliation | 1028 | + + + | Race | White | + + + | Ethnic Group | Not or | + + + Author + + + | Author | [facility] | | | and [place] | + + + | Organization | [facility] | | | and [place] | + + + | Address | Unknown | + + + | Phone | Unavailable | + + + Support + + +---------+ + | Name | Relationship | Address | Phone | + + +---------+ + | Leandro Carrizales | ECON | Unknown | | + + +---------+ + Care Team Providers + +------+ + | Care Customer Sales Distributor Name | Role | Phone | + +------+ + | Paul Hogan MD | PCP | | + +------+ + Reason for Visit Auth/Cert +--------+--------+ + + + + | Status | Reason | Specialty | Diagnoses / | Referred By | Referred To | | | | | Procedures | Contact | Contact | +--------+--------+ + + + + | | | | Diagnoses | | | | | | | Other | | | | | | | 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 | | | | | | | region | | | | | | | Other | | | | | | | 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 | | | | | | | region | | | | | | | [M51.36] | | | | | | | Procedures | | | | | | | [place] | | | | | | | ARTHRODESIS | | | | | | | POSTERIOR/PO | | | | | | | STEROLATERAL | | | | | | | LUMBAR | | | | | | | FUSION | | | | | | | LUMBAR W/ | | | | | | | LATERAL | | | | | | | APPROACH | | | | | | | (XLIF) | | | +--------+--------+ + + + + Encounter Details +--------+ + + + + | Date | Type | Department | Care Team | Description | +--------+ + + + + | 12/13/ | Hospital | [facility] | Umer Garcia MD | | | 2016 | Encounter | MED CTR XRAY [address] | | | | | [address] | [place] [address] | | | | | [place] [address] | [phone] | | | | | [phone] | | | +--------+ + + + + Social History + +-------+ +--------+------+ | Tobacco Use | Types | Packs/Day | Years | Date | | | | | Used | | + +-------+ +--------+------+ | Never Smoker | | | | | + +-------+ +--------+------+ + +---+---+---+ | Smokeless Tobacco: | | | | | Never Used | | | | + +---+---+---+ + + +---------+ + | Alcohol Use | Drinks/Week | oz/Week | Comments | + + +---------+ + | Yes | 1 Shots of liquor | 1.0 | | | | 0 Standard drinks | | | | | or equivalent | | | + + +---------+ + + + + | Sex Assigned at | Date Recorded | | | | + + + | Not on file | | + + + documented as of this encounter Functional Status + + + + | Functional Status | Response | Date of Assessment | + + + + | Are you deaf or do you have serious | No | 05/01/2015 | | difficulty hearing? | | | + + + + | Are you blind or do you have serious | No | 05/01/2015 | | difficulty seeing, even when wearing | | | | glasses? | | | + + + + | Do you have serious difficulty walking or | No | 05/01/2015 | | climbing stairs? (5 years old or older) | | | + + + + | Do you have difficulty dressing or bathing? | No | 05/01/2015 | | (5 years old or older) | | | + + + + | Because of a physical, mental, or emotional | No | 05/01/2015 | | condition, do you have difficulty doing | | | | errands alone such as visiting a doctor's | | | | office or shopping? [15 years old or | | | | older)] | | | + + + + + + + + | Cognitive Status | Response | Date of Assessment | + + + + | Because of a physical, mental, or emotional | No | 05/01/2015 | | condition, do you have serious difficulty | | | | concentrating, remembering, or making | | | | decisions? (5 years old or older) | | | + + + + documented as of this encounter Medications at Time of Discharge + + + +---------+ + + | Medication | Sig | Dispensed | Refills | Start | End Date | | | | | | Date | | + + + +---------+ + + | Acetaminophen | Take 1,000 mg by | | 0 | | | | (TYLENOL ARTHRITIS | mouth 3 times daily. | | | | | | PAIN PO) | | | | | | + + + +---------+ + + | gabapentin | Take 300 mg by mouth | | 0 | 05/25/20 | | | (NEURONTIN) 300 mg | 2 times daily. | | | 12 | | | capsule | | | | | | + + + +---------+ + + | aspirin 81 mg EC | Take 81 mg by mouth | | 0 | | | | tablet | Daily. | | | | 9 | + + + +---------+ + + | atorvaSTATin | Take 10 mg by mouth | | 0 | | | | (LIPITOR) 10 mg | nightly. | | | | 7 | | tablet | | | | | | + + + +---------+ + + | B Complex Vitamins | Take 1 tablet by | | 0 | | | | (VITAMIN B COMPLEX | mouth Daily. | | | | 6 | | PO) | | | | | | + + + +---------+ + + | Calcium | Take by mouth 2 | | 0 | 05/25/20 | | | Citrate-Vitamin D | times daily. | | | 12 | 9 | | (CITRACAL/VITAMIN D) | | | | | | | 250-200 MG-UNIT | | | | | | | TABS | | | | | | + + + +---------+ + + | cyclobenzaprine | Take 10 mg by mouth | | 0 | | | | (FLEXERIL) 10 mg | nightly. | | | | 6 | | tablet | | | | | | + + + +---------+ + + | furosemide (LASIX) | Take 40 mg by mouth | | 0 | 05/25/20 | | | 40 mg tablet | Daily. | | | 12 | 9 | + + + +---------+ + + | | Take 1-2 tablets by | 65 | 0 | 09/25/19 | | | HYDROcodone-acetamin | mouth every 4 hours | tablet | | 16 | 6 | | ophen (NORCO) 10-325 | as needed for Pain. | | | | | | mg per | | | | | | | tabletIndications: | | | | | | | S/P cervical spinal | | | | | | | fusion | | | | | | + + + +---------+ + + | lactulose 10 g/15 | Take 30 mLs by mouth | 240 mL | 0 | 12/16/19 | | | mL solution | Daily as needed. | | | 16 | 6 | + + + +---------+ + + | levothyroxine | Take 25 mcg by mouth | | 0 | | | | (SYNTHROID, | every morning | | | | 9 | | LEVOTHROID) 25 mcg | (before breakfast). | | | | | | tablet | | | | | | + + + +---------+ + + | melatonin 5 mg | Take 10 mg by mouth | | 0 | | | | tablet | nightly. | | | | 0 | + + + +---------+ + + | omeprazole | Take 20 mg by mouth | | 0 | 05/25/20 | | | (PRILOSEC) 20 mg | Daily. | | | 12 | 9 | | capsule | | | | | | + + + +---------+ + + | oxyCODONE | Take 1-4 tablets by | 120 | 0 | 12/16/19 | | | (ROXICODONE) 5 mg | mouth every 4 hours | tablet | | 16 | 6 | | tablet | as needed for Pain. | | | | | + + + +---------+ + + | paroxetine (PAXIL) | Take 30 mg by mouth | | 0 | 05/25/20 | | | 30 MG tablet | Daily. | | | 12 | 9 | + + + +---------+ + + | potassium chloride | Take 10 mEq by mouth | | 0 | 05/25/20 | | | (MICRO-K) 10 mEq CR | Daily. | | | 12 | 9 | | capsule | | | | | | + + + +---------+ + + | tiZANidine | Take 0.5 tablets by | 90 | 1 | 12/16/19 | | | (ZANAFLEX) 4 mg | mouth every 6 hours | tablet | | 16 | 9 | | tablet | as needed. | | | | | + + + +---------+ + + | VALERIAN PO | Take 3 capsules by | | 0 | | | | | mouth nightly. | | | | 9 | + + + +---------+ + + documented as of this encounter Plan of Treatment Not on filedocumented as of this encounter Procedures + +--------+ + + + | Procedure Name | Priori | Date/Time | Associated Diagnosis | Comments | | | ty | | | | + +--------+ + + + | SOHEILA RIVAS STATS NO | Routin | 12/14/2015 | | Results for this | | CHARGE | e | 6:07 PM | | procedure are in the | | | | PDT | | results section. | + +--------+ + + + documented in this encounter Results SOHEILA Maldonado Stats No Charge (12/14/2015 6:07 PM PDT) + + | Specimen | + + | | + + + + + | Narrative | Performed At | + + + | No Radiologist interpretation, please see Chart Review. | [facility] | + + + + +---------+ + + | Performing | Address | City/State/Zipcode | Phone Number | | Organization | | | | + +---------+ + + | [facility] | | | | + +---------+ + + documented in this encounter Visit Diagnoses Not on filedocumented in this encounter"
--- OUTSIDE RECORDS SUMMARY | ~2020-05-22 | XMS | Encounter Summary ---
Demographics + + + | Address | [address] | | | [place] [address] | + + + | Home Phone | | + + + | Preferred Language | Unknown | + + + | Marital Status | | + + + | Spiritism Affiliation | 1028 | + + + | Race | White | + + + | Ethnic Group | Not or | + + + Author + + + | Author | [facility] | | | and [place] | + + + | Organization | [facility] | | | and [...] Team Providers + +------+ + | Care Feed Elevator Worker Name | Role | Phone | + +------+ + | Paul Hogan MD | PCP | | + +------+ + Reason for Visit Auth/Cert +--------+--------+ + + + + | Status | Reason | Specialty | Diagnoses / | Referred By | Referred To | | | | | Procedures | Contact | Contact | +--------+--------+ + + + + | Closed | | | Diagnoses | | | | | | | Cervical | | | | | | | spondylosis | | | | | | | without | | | | | | | myelopathy | | | | | | | Cervical | | | | | | | spondylosis | | | | | | | without | | | | | | | myelopathy | | | | | | | [721.0] | | | | | | | Procedures | | | | | | | [place] | | | | | | | ARTHRODESIS | | | | | | | ANT | | | | | | | INTERBODY | | | | | | | INC | | | | | | | DISCECTOMY, | | | | | | | CERVICAL | | | | | | | BELOW C2 | | | | | | | FUSION | | | | | | | CERVICAL | | | | | | | ANTERIOR W/ | | | | | | | PLATING | | | +--------+--------+ + + + + Encounter Details +--------+ + + + + | Date | Type | Department | Care Team | Description | +--------+ + + + + | 04/30/ | Anesthesia | [facility] | Shaw Vicente MD | | | 2015 | Event | MED CTR OR INTRA OP | [address] | | | | | [address] | [place] | | | | | [place] | [address] | | | | | [address] | | | | | | [phone] | | | +--------+ + + + + Anesthesia Record + + + + + | Procedure Name | Responsible | Anesthesia Start | Anesthesia Stop Time | | | Anesthesiologist | Time | | + + + + + | C5-6, C6-7 Anterior | Shaw Vicente MD | 04/30/15 08 | 04/30/15 1011 | | Cervical Discectomy | | | | | Fusion (N/A Neck) | | | | + + + + + +----+---+ + + | Da | T | Event | Comment | | te | i | | | | | m | | | | | e | | | +----+---+ + + | 08 | 0 | | | | /2 | 7 | | | | 0/ | 1 | | | | 20 | 9 | | | | 15 | | | | +----+---+ + + | | 0 | An Checkout | Pre-use anesthesia machine/equipment checkout. | | | 7 | | | | | 2 | | | | | 4 | | | +----+---+ + + | | 0 | An Start | Reassessment prior to anesthesia induction/procedure. | | | 8 | | | | | 0 | | | | | 2 | | | +----+---+ + + | | 0 | Antibiotic | | | | 8 | Given | | | | 0 | | | | | 2 | | | +----+---+ + + | | 0 | Preoxygenat | | | | 8 | ed | | | | 0 | | | | | 7 | | | +----+---+ + + | | 0 | An | | | | 8 | Induction | | | | 0 | | | | | 7 | | | +----+---+ + + | | 0 | An | | | | 8 | Intubation | | | | 1 | | | | | 1 | | | +----+---+ + + | | 0 | [place] | | | | 8 | 38-degrees | | | | 1 | | | | | 4 | | | +----+---+ + + | | 0 | an srinath now | incision | | | 8 | | | | | 2 | | | | | 7 | | | +----+---+ + + | | 0 | An Surgeon | | | | 8 | on Cuff | | | | 4 | | | | | 3 | | | +----+---+ + + | | 0 | An Surgeon | | | | 9 | on Cuff | | | | 3 | | | | | 6 | | | +----+---+ + + | | 0 | [place] off | | | | 9 | | | | | 5 | | | | | 3 | | | +----+---+ + + | | 0 | Breathing | | | | 9 | Spontaneous | | | | 5 | ly | | | | 3 | | | +----+---+ + + | | 0 | Oropharynx | | | | 9 | Suctioned | | | | 5 | | | | | 3 | | | +----+---+ + + | | 1 | Extubated | | | | 0 | Awake | | | | 0 | | | | | 0 | | | +----+---+ + + | | 1 | an stop | | | | 0 | data | | | | 0 | | | | | 0 | | | +----+---+ + + | | 1 | Quick Note | After opening eyes and mouth for extubation in the OR she was | | | 0 | | taken to PACU where she stopped breathing and was unresponsive. | | | 0 | | Ambu bag O2 for a couple minutes and she returned to spontaneous | | | 7 | | respirations. | +----+---+ + + | | 1 | An Stop | Patient handed off to recovery nurse. | | | 1 | | | | | 1 | | | +----+---+ + + +------+ | Meds | +------+ + +---------+ | Name | Total | + +---------+ | fentaNYL | 250 mcg | + +---------+ | propofol | 80 mg | + +---------+ | lidocaine 2% | 50 mg | + +---------+ | rocuronium | 30 mg | + +---------+ | ketamine | 50 mg | + +---------+ | ciprofloxacin in dextrose (CIPRO) | 400 mg | | IVPB 400 mg | | + +---------+ | vancomycin 1 g in sodium chloride | 0 g | | 0.9% 250 mL IVPB | | + +---------+ | dexamethasone | 5 mg | + +---------+ | ondansetron | 2 mg | + +---------+ | labetalol | 5 mg | + +---------+ | glycopyrrolate | 0.2 mg | + +---------+ | neostigmine | 1 mg | + +---------+ | lactated ringers (LR) infusion | 0 mL | + +---------+ + + | Name | + + | N2O Flow Rate (L/Min) | + + | O2 Flow Rate (L/Min) | + + | Insp O2 | + + | Exp SEV | + + | Air Flow Rate (L/Min) | + + + + | No blood administrations on file. | + + +--------+ + + + | Type | Details | Placement | Removal | +--------+ + + + | [READ | 04/30/15; 07; expected removal | 04/30/15705 by | 05/01/15 1200 by | | ONLY] | post discharge; 05/01/15; 1200 | Ritu Manning RN | Xavi Urban RN | | | | | | | Periph | | | | | eral | | | | | IV - | | | | | Single | | | | | Lumen | | | | | | | | | +--------+ + + + | Read | 04/30/15; 0738; neck; healing | 04/30/15 0738 by | 05/01/15 1200 by | | only - | within expectations; 05/01/15; | Gaston Ambrocio RN | Xavi Urban RN | | | 1200 | | | | Incisi | | | | | on | | | | +--------+ + + + | Airway | Placement Date: 04/30/15; | 04/30/15810 by | 04/30/15 1000 by | | | Placement Time: 810; Mask | Shaw Vicente MD | Shaw Vicente MD | | | Ventilation: EZ; Airway Grade: | | | | | II; Successful Technique: video | | | | | scope; Laryngoscope Blade Size: | | | | | 3; Attempts: 1; Airway Type: | | | | | endotracheal, oral, cuffed, | | | | | disposable; Size: 6.5; Position: | | | | | Left; Airway Tube Secured At: | | | | | 0.22 m (8.66"); Tube Reference | | | | | Point: lip; Trauma: none; Other | | | | | Equipment: stylette; Placement | | | | | Check: verified by capnography; | | | | | Placed By: Anesthesiologist; | | | | | Removal Date: 04/30/15; Removal | | | | | Time: 1000 | | | +--------+ + + + | Drain/ | 04/30/15; 940; #1; Left:; | 04/30/15940 by | 05/01/15 08 by | | Device | anterior; cervical spine; 10 | Gaston Ambrocio RN | Xavi Urban RN | | Site | Fr./100ml; short term use; | | | | | 05/01/15; 809 | | | +--------+ + + + documented in this encounter Social History + +-------+ +--------+------+ | Tobacco [...] + + +---------+ + | Yes | 0 Standard drinks | 1.0 | | | | or equivalent 1 | | | | | Shots of liquor | | | + + +---------+ + + + + | Sex Assigned at | Date Recorded | | | | + + + | Not on file | | + + + documented as of this encounter OR Notes Anesthesia Postprocedure Evaluation - Shaw Vicente MD - 04/30/2015 3:19 PM PDTFormattin g of this note might be different from the original. ANESTHESIA POSTANESTHESIA EVALUATION Mellisa Bryant [place] 80 y.o. female 1935 [id number] Procedure(s) C5-6, C6-7 Anterior Cervical Discectomy Fusion (N/A Neck) Filed Vitals: 04/30/15 1225 04/30/15 1325 04/30/15 1425 BP: 154/85 150/71 149/73 Pulse: 77 80 81 Temp: Resp: 16 16 20 SpO2: 96% 92% Cooperates? Yes Mental Status Performs simple tasks. Respiratory Satisfactory - Airway patent (self maintained). Cardiovascular Satisfactory Blood pressure and heart rate acceptable Temperature Satisfactory Pain Satisfactory N/V Control Satisfactory Hydration Satisfactory No signs of dehydration Complications None apparent Electronically signed by Shaw Vicente MD 04/30/2015 15:19 [facility] nesthesia Preprocedur e Evaluation - Shaw Vicente MD - 04/30/2015 7:15 AM PDT ANESTHESIA PREANESTHESIA EVALUATION Mellisa Carrizales 80 y.o. female 1935 [id number] Procedure(s): C5-6, C6-7 Anterior Cervical Discectomy Fusion (N/A Neck) Medical history, anesthesia, medications, allergy histories reviewed. ROS / Med History Ane NPO status verified. CV Patient was not sure which medications to stop so she stopped taking her blood pressure pills two days ago.. Pulm No acute pulmonary concerns. Psych Negative except where noted below. Physical Exam Airway MP III, TM >3 FB, Mouth opening >2 FB. Neck: limited ROM, extends <30 degrees. Jaw pro trusion normal. Dental Grossly normal except where noted below.; (+) dentures-upper. CV Rhythm regular. Rate Normal. (-) murmur. Pulm Clear to auscultation bilaterally. Neuro Grossly normal. Anesthesia Plan ASA 2 Type: General. Induction: Intravenous. Potential problems: None anticipated. Monitors: Standard ASA monitors. Consent statement:Anesthetic plan, alternatives, risks and benefits discussed with patient. Risks discussed included (but were not limited to): sore throat, respiratory events, heart problems, dental injury, . Consenting person understands and agrees to proceed. documented in this enc ounter Plan of Treatment Not on filedocumented as of this encounter Visit Diagnoses Not on filedocumented in this encounter Administered Medications + +--------+ +--------+------+------+ | Medication Order | MAR | Action | Dose | Rate | Site | | | Action | Date | | | | + +--------+ +--------+------+------+ | ciprofloxacin in dextrose | Given | 04/30/20 | 400 mg | | | | (CIPRO) IVPB 400 mg 400 mg, | | 15 8:10 | | | | | Intravenous, Administer over 1 | | AM PDT | | | | | Hours, EVERY 12 HOURS (2 times | | | | | | | per day), First dose on Mon | | | | | | | 04/30/15 at 0900, Pre-op | | | | | | + +--------+ +--------+------+------+ +---+---+ | | | +---+---+ + +-------+ +------+---+---+ | dexamethasone (DECADRON) 10 | Given | 04/30/20 | 5 mg | | | | mg/mL injection Intravenous, | | 15 8:29 | | | | | PRN, Starting Mon04/30/15 at | | AM PDT | | | | | 0829, Anesthesia Intra-op | | | | | | + +-------+ +------+---+---+ +---+---+ | | | +---+---+ + +-------+ +--------+---+---+ | fentaNYL injection | Given | 04/30/20 | 50 mcg | | | | Intravenous, PRN, Pain, Starting | | 15 9:30 | | | | | Dee 04/30/15 at 0805, Anesthesia | | AM PDT | | | | | Intra-op | | | | | | + +-------+ +--------+---+---+ +-------+ +--------+---+---+ | Given | 04/30/20 | 50 mcg | | | | | 15 8:56 | | | | | | AM PDT | | | | +-------+ +--------+---+---+ | Given | 04/30/20 | 50 mcg | | | | | 15 8:32 | | | | | | AM PDT | | | | +-------+ +--------+---+---+ +---+---+ | | | +---+---+ + +-------+ +--------+---+---+ | glycopyrrolate (JOSH) | Given | 04/30/20 | 0.2 mg | | | | injection Intravenous, PRN, | | 15 9:41 | | | | | Secretions, Starting Dee 04/30/15 | | AM PDT | | | | | at 0941, Anesthesia Intra-op | | | | | | + +-------+ +--------+---+---+ +---+---+ | | | +---+---+ + +-------+ +-------+---+---+ | ketamine 50 mg/mL injection | Given | 04/30/20 | 10 mg | | | | PRN, Starting Dee 04/30/15 at | | 15 9:30 | | | | | 0805, Anesthesia Intra-op | | AM PDT | | | | + +-------+ +-------+---+---+ +-------+ +-------+---+---+ | Given | 04/30/20 | 10 mg | | | | | 15 8:56 | | | | | | AM PDT | | | | +-------+ +-------+---+---+ | Given | 04/30/20 | 10 mg | | | | | 15 8:32 | | | | | | AM PDT | | | | +-------+ +-------+---+---+ +---+---+ | | | +---+---+ + +-------+ +------+---+---+ | labetalol (TRANDATE) 5 mg/mL | Given | 04/30/20 | 5 mg | | | | injection Intravenous, PRN, | | 15 8:36 | | | | | Starting Dee 04/30/15 at 0836, | | AM PDT | | | | | Anesthesia Intra-op | | | | | | + +-------+ +------+---+---+ +---+---+ | | | +---+---+ + +-------+ +-------+---+---+ | lidocaine (PF) 2% injection | Given | 04/30/20 | 50 mg | | | | Intravenous, PRN, Starting Dee | | 15 8:07 | | | | | 15 at 0807, Anesthesia | | AM PDT | | | | | Intra-op | | | | | | + +-------+ +-------+---+---+ +---+---+ | | | +---+---+ + +-------+ +------+---+---+ | neostigmine (PROSTIGMIN) 1 | Given | 04/30/20 | 1 mg | | | | mg/mL injection Intravenous, | | 15 9:41 | | | | | PRN, Starting Dee 04/30/15 at | | AM PDT | | | | | 0941, Anesthesia Intra-op | | | | | | + +-------+ +------+---+---+ +---+---+ | | | +---+---+ + +-------+ +------+---+---+ | ondansetron (ZOFRAN) injection | Given | 04/30/20 | 2 mg | | | | Intravenous, PRN, Nausea, | | 15 8:30 | | | | | Vomiting, Starting Dee 04/30/15 at | | AM PDT | | | | | 0830, Anesthesia Intra-op | | | | | | + +-------+ +------+---+---+ +---+---+ | | | +---+---+ + +-------+ +-------+---+---+ | propofol (DIPRIVAN) injection | Given | 04/30/20 | 80 mg | | | | Intravenous, PRN, Starting Dee | | 15 8:07 | | | | | 15 at 07, Anesthesia | | AM PDT | | | | | Intra-op | | | | | | + +-------+ +-------+---+---+ +---+---+ | | | +---+---+ + +-------+ +-------+---+---+ | rocuronium (ZEMURON) injection | Given | 04/30/20 | 30 mg | | | | Intravenous, PRN, Starting Dee | | 15 8:07 | | | | | 04/30/15 at 07, Anesthesia | | AM PDT | | | | | Intra-op | | | | | | + +-------+ +-------+---+---+ +---+---+ | | | +---+---+ documented in this encounter
--- OUTSIDE RECORDS SUMMARY | ~2020-05-22 | XMS | Encounter Summary ---
Demographics + + + | Address | [address] | | | [place] [address] | + + + | Home Phone | | + + + | Preferred Language | Unknown | + + + | Marital Status | | + + + | Islam Affiliation | 1028 | + + + | Race | White | + + + | Ethnic Group | Not or | + + + Author + + + | Author | [facility] | | | and [place] | + + + | Organization | [facility] | | | and [place] | + + + | Address | Unknown | + + + | Phone | Unavailable | + + + Support + + +---------+ + | Name | Relationship | Address | Phone | + + +---------+ + | Leandro Juanitodavid | ECON | Unknown | | + + +---------+ + Care Team Providers + +------+ + | Care Traffic Control Operator Name | Role | Phone | + +------+ + | Ethan Solomon MD | PCP | | + +------+ + Reason for Visit + + + | Reason | Comments | + + + | Back Pain | | + + + Encounter Details +--------+---------+ + + + | Date | Type | Department | Care Team | Description | +--------+---------+ + + + | 10/09/ | Office | [facility] | Aric Wilcox | S/P cervical spinal | | 2019 | Visit | NEUROSURGERY [address] | fusion (Primary Dx); | | | | [address] [place], [place] | Cervicalgia; S/P | | | | [place], [place] | [address] | lumbar fusion | | | | [id number] | | | | | | [phone] | | | +--------+---------+ + + + Social History + +-------+ [...] + + documented as of this encounter Last Filed Vital Signs + + + + + | Vital Sign | Reading | Time Taken | Comments | + + + + + | Blood Pressure | 128/76 | 10/09/2018 11:06 AM | | | | | PST | | + + + + + | Pulse | 89 | 10/09/2018 11:06 AM | | | | | PST | | + + + + + | Temperature | - | - | | + + + + + | Respiratory Rate | - | - | | + + + + + | Oxygen Saturation | 98% | 10/09/2018 11:06 AM | | | | | PST | | + + + + + | Inhaled Oxygen | - | - | | | Concentration | | | | + + + + + | Weight | 71.8 kg (158 lb 4.6 | 10/09/2018 11:06 AM | | | | oz) | PST | | + + + + + | Height | 165.1 cm (5' 5") | 10/09/2018 11:06 AM | | | | | PST | | + + + + + | Body Mass Index | 26.34 | 10/09/2018 11:06 AM | | | | | PST | | + + + + + documented in this encounter Functional Status + + + [...] + + documented as of this encounter Patient Instructions Patient Instructions Marcia Avila, Chip Machine Operator - 10/09/2018 10:30 AM PSTIt was a pleasure to see you today. Here is what we discussed. - Let pain be your guide. If you are doing an activity that starts causing you pain back of f for a couple of days and ease back into it slowly. We don't want you taking any risks that do not need to be taken. - We will try to obtain a more recent lumbar CT from [facility]. If there is not a recent on e available we will send an order for one. You will receive a call with further instructions . T documented in this encounter Progress Notes Aric Wilcox PA-C - 10/09/2018 10:30 AM PSTFormatting of this note might be differ ent from the original. Aric Wilcox PA-C [address] [facility], [address] [place] [address] PHONE: FAX: NEUROSURGERY HISTORY AND PHYSICAL EXAMINATION CHIEF COMPLAINT: Chief Complaint Patient presents with Back Pain HISTORY OF PRESENT ILLNESS: The patient is a 83 y.o. female that was last seen on 07/17/20 17 with the complaint of complaint of neck pain symptoms that began several years ago. She h as a history of a C5-6, C6-7 Anterior Cervical Discectomy Fusion that was done by Dr. Garcia on 04/30/2015 for cervical myelopathy she is also had an L4-5 and L5 lumbar fusion. She states that she has both back and neck pain. Her back pain is worse when she tries to l ay down flat. Back also bothers her when she is up moving around. Her neck pain is worse wh ile standing and walking. Her symptoms have continued to worse over time. In addition she also describes left should er, bilateral hip and knee pain, as well as bilateral foot pain. She states that her balance has also worsened over time to the point that now she has to hold on to something to stabil ize herself. She is here to have recommendation regarding her pain. She is not having any particular radicular symptoms or numbness and weakness although her left arm has some discom fort but she attributes this to her previous left shoulder replacement. PAST MEDICAL HISTORY: Past Medical History: Diagnosis Date Claustrophobia Depression DVT of leg (deep venous thrombosis) ([facility]) Full dentures upper & lower Gastric reflux Hyperlipidemia Hypertension Hypothyroid Migraine Neuropathy Osteoarthritis Poor circulation Seasonal allergies Sleep apnea no CPAP PAST SURGICAL HISTORY: Past Surgical History: Procedure Laterality Date BACK SURGERY Right BLADDER REPAIR x 3 CERVICAL SPINE SURGERY N/A 04/30/2015 Procedure: C5-6, C6-7 Anterior Cervical Discectomy Fusion; Surgeon: Umer Garcia MD; Loc ation: [facility] MAIN OR FOOT SURGERY bilateral little toes & left big toe HYSTERECTOMY LUMBAR SPINE SURGERY Left 12/14/2015 Procedure: L4-5 Lateral Anterior Interbody Fusion w/ L5-S1 Transforaminal Lumbar Interbody Fusion; Surgeon: Umer Garcia MD; Location: [facility] MAIN OR SHOULDER ARTHROSCOPY Bilateral SHOULDER SURGERY Left 01/03/2017 Dr. [facility]. TONSILLECTOMY AND ADENOIDECTOMY CURRENT MEDICATIONS: Current Outpatient Prescriptions Medication Sig Dispense Refill Acetaminophen (TYLENOL ARTHRITIS PAIN PO) Take 1,000 mg by mouth 3 times daily. aspirin 81 mg EC tablet Take 81 mg by mouth Daily. Cyanocobalamin (VITAMIN B 12 PO) Take 1 tablet by mouth Daily. DiphenhydrAMINE HCl (BENADRYL ALLERGY PO) Take 25 mg by mouth 4 times daily. Patient eladio kes at night. gabapentin (NEURONTIN) 300 mg capsule Take 300 mg by mouth 2 times daily. (Patient taklilian ng differently: Take 600 mg by mouth 3 times daily.) melatonin 5 mg tablet Take 10 mg by mouth nightly. No current facility-administered medications for this visit. ALLERGIES: Allergies Allergen Reactions Codeine Sulfate Nausea And Vomiting Penicillin V Potassium Swelling SOCIAL HISTORY: The patient reports that she has never smoked. She has never used smokeless tobacco. She r eports that she drinks about 0.6 oz of alcohol per week . She reports that she does not use drugs. FAMILY HISTORY: Family History Problem Relation Age of Onset Cancer Father Cancer Mother Thyroid Cancer Arthritis Other Hypertension Other Kidney disease Brother Cancer Brother Heart attack Paternal Grandfather REVIEW OF SYSTEMS: GENERALLY: No fever, no night sweats, no anemia, no fatigue, no recent profound weight ch anges. EYES: No eye problems, no impaired sight, + use of corrective lenses, no eye injury, no do uble vision, no transient blindness. EARS, NOSE, AND THROAT: No changes in taste or smell, no hearing difficulty, no ringing in the ears, no ear drainage, no ear injury, no dizziness, no voice changes, no difficulty swa llowing, no significant snoring, + sleep apnea/CPAP, no sinus problems, no major dental work . NEUROLOGICALLY: Please see the review of systems discussed above in the history of present illness. In addition, the patient has muscle aching, coordination difficulty, change in wa lk, pain in neck and pain in back. PSYCHIATRIC: + depression, + difficulty sleeping, no anxiety, no bipolar disorder. CARDIOVASCULAR: No heart attacks, + heart murmur, no heart fluttering, no chest pain, + an kle swelling. LUNG DISEASE: No shortness of breath, no cough, no tuberculosis, no bloody cough, no asthm a, no emphysema/COPD. GASTROINTESTINAL: No bowel disease, no nausea or vomiting, no rectal bleeding, no constipa tion, no fecal stool incontinence, no liver/gallbladder disease, no abdominal pain, no ulcer s. KIDNEY DISEASE: No urinary frequency, no painful or difficult urination, + urinary inconti nence, no bladder problems, no impotence. ENDOCRINE: No diabetes, + thyroid disease, no osteopenia or osteoporosis, no breast draina ge. SKIN: No breast lumps, no skin disease or skin changes, no rashes/itches. HEMATOLOGIC/LYMPHATIC: No enlarged lymph nodes, no easy or unusual bleeding, no personal h istory of cancer. RHEUMATOLOGIC: + joint pain/arthritis, no rheumatoid arthritis. PHYSICAL EXAMINATION: Blood pressure 128/76, pulse 89, height 1.651 m (5' 5"), weight 71.8 kg (158 lb 4.6 oz), Sp O2 98 %, not currently . Body mass index is 26.34 kg/m. GENERAL: Mellisa Carrizales is in no acute distress with unlabored respirations. The patie nt does not appear uncomfortable throughout the exam today. HEENT: Head: Normocephalic/atraumatic with no areas of recent trauma. Eyes: Normal sclerae without icterus. Ears: No drainage or tenderness. Nasopharnyx: Clear without drainage. Oropharnyx: Clear without erythema. NECK (ANTERIOR): Supple and without palpable masses. CHEST: Clear to ausculation without crackles or wheeze. HEART: Regular rate and rhythm without murmurs. ABDOMEN: Soft, non-tender, non-distended, and without palpable masses. The patient is not o bese. EXTREMITIES: No cyanosis, clubbing, or edema. Distal pulses are palpable. NEUROLOGICAL EXAM: MENTAL STATUS: The patient is awake, alert, and oriented. She follows simple and complex commands. Her speech is fluent, she comprehends speech well, and she repeats well. She has no apparent deficits with short or crew attendant memory. CRANIAL NERVES: II: Acuity is intact. Syed are full to confrontation. III, IV, : The pupils are reactive. Extraocular movements are intact. No ptosis is note d. V: Facial sensation is intact and symmetric. VII: Facial movements are symmetric. VIII: Hearing is intact bilaterally. IX, X: The uvula and palate move appropriately. XI: Shrug is equal bilaterally. XII: Tongue protrusion is midline. MOTOR EXAM: (5 IS NORMAL) * Indicates pain limited MUSCLE/ MOVEMENT: RIGHT LEFT Deltoids 5 4+ Biceps 5 5 Triceps 5 5 Wrist Flexion 5 5 Wrist Extension 5 5 Median Intrinsics 5 5 Ulnar Intrinsics 5 5 Machine Sign Writer Strength 5 5 Hip Flexion 5 5 Hip Extension 5 5 Knee Flexion 5 5 Knee Extension 5 5 Dorsiflexion 5 5 Extensor Hallicus Longus 5 5 Plantarflexion 5 5 SENSORY EXAM: Sensory exam shows hypersensitivity to light touch or pain throughout the anterior navarro on the left. REFLEXES: (2 OR 2+ IS NORMAL) REFLEX: RIGHT LEFT BICEPS 2 2 BRACHIORADIALIS 2 2 TRICEPS 2 2 PATELLAR 2 2 ACHILLES 2 2 WILCOX'S ABSENT ABSENT PLANTAR DOWNGOING DOWNGOING GAIT: Off balance gait. TEST AND RADIOGRAPHIC REVIEW: The patient's previous x-rays of her cervical and lumbar spine look reasonable. I cannot p articularly assess whether there is good fusion at L5-S1 but the hardware appeared to be sta ble from 2017 ASSESSMENT: NEUROSURGICAL DIAGNOSES: Encounter Diagnoses Name Primary? Cervicalgia S/P cervical spinal fusion Yes S/P lumbar fusion GENERAL DIAGNOSES: Past Medical History: Diagnosis Date Claustrophobia Depression DVT of leg (deep venous thrombosis) ([facility]) Full dentures upper & lower Gastric reflux Hyperlipidemia Hypertension Hypothyroid Migraine Neuropathy Osteoarthritis Poor circulation Seasonal allergies Sleep apnea no CPAP PLAN: Mellisa Carrizales presented today, and it was a pleasure seeing this patient and assessing her neurologic problems. The patient has neck and back pain. She has ongoing problems with arthritic changes.. The patient has stable symptoms. I would like to verify that she has adequate fusion at L5-S1. We will plan to obtain a CT scan of her lumbar spine if she has not had one recently [facility] in [place]. If her CT scan shows adequate fusion then I would recommend she work clos bladimir with physiatry. She has a lack of neurologic radicular symptoms and I think at this [facility] surgery would not be in her favor. Once the imaging has been completed we will review the imaging and contact her with the res ults and possibly send a referral to physiatry The patient would like to continue conservative care and return to discuss surgery or addit ional treatment options if the symptoms worsen. I, Aric Wilcox PA-C, personally performed the services described in this documentation , as scribed by NANCY Henriquez in my presence, and it is both accurate and comp lete. Aric Wilcox PA-C 10/09/18 ELECTRONICALLY SIGNED BY: Aric Wilcox PA-C, 10/09/2018 11:39 documented in this encounter Plan of Treatment Not on filedocumented as of this encounter Visit Diagnoses + + | Diagnosis | + + | S/P cervical spinal fusion - Primary Arthrodesis status | + + | Cervicalgia | + + | S/P lumbar fusion Arthrodesis status | + + documented in this encounter
--- OUTSIDE RECORDS SUMMARY | ~2020-05-22 | XMS | Encounter Summary ---
Demographics + + + | Address | [address] | | | [place] [address] | + + + | Home Phone | | + + + | Preferred Language | Unknown | + + + | Marital Status | | + + + | Orthodox Affiliation | 1028 | + + + | Race | White | + + + | Ethnic Group | Not or | + + + Author + + + | Author | [facility] | | | and [place] | + + + | Organization | [facility] | | | [...] Team Providers + +------+ + | Care Freight Flagman Name | Role | Phone | + +------+ + | Ethan Solomon MD | PCP | | + +------+ + Reason for Visit + +--------+ + | Reason | Onset | Comments | | | Date | | + +--------+ + | Results, Imaging | 10/22/ | | | | 2019 | | + +--------+ + Encounter Details +--------+ + + + + | Date | Type | Department | Care Team | Description | +--------+ + + + + | 10/22/ | Telephone | [facility] [place] | Umer Garcia MD | Results, Imaging | | 2019 | | NEUROSURGERY [address] | [address] | | | | | [address] | [place] [address] | | | | | [place] | [phone] | | | | | [address] | | | | | | [phone] | | | +--------+ + + + [...] + + documented as of this encounter Miscellaneous Notes Telephone Encounter - Chrissy Ochoa Cert MA - 10/25/2018 9:53 AM PSTI spoke with Mellisa ludwin luis and relayed the message to her per Darnell. She said that right now she has bursitis in h er hip so bad she can hardly walk so she would like to hold off on the referral to Physiatry . She will call us when she's ready so that we have help facilitate that referral. CHRISSY OCHOA elephone Encounte r - Aric Wilcox PA-C - 10/25/2018 9:[address] scan of her lumbar spine show s stable hardware with no sign of loosening. Her fusion appears to be very good at her oper ated levels. As we discussed at the time of our appointment, I would like her to work with physiatry to help intensify conservative care for her low back pain. If she would like, I w ould be happy to facilitate a referral. elephone Encounter - Susie Lopez CMA - 10/25/2018 9:19 AM PSTCT of lumbar spine available on [email or web address] for review. elephone Encounter - Chrissy Ochoa Cert MA - 10/22/2018 11:57 AM PS TReport for lumbar CT received today from [facility]. Sent a request via [email or web address] for these images. O nce received will send to Darnell for review and advice on how to proceed. documented in this encounter Plan of Treatment Not on filedocumented as of this encounter Visit Diagnoses Not on filedocumented in this encounter"
--- OUTSIDE RECORDS SUMMARY | ~2020-05-22 | XMS | Encounter Summary ---
Demographics + + + | Address | [address] | | | [place] [address] | + + + | Home Phone [...] Team Providers + +------+ + | Care [employer] Technician Name | Role | Phone | + +------+ + PCP | Unavailable | + +------+ + Encounter Details +--------+ + + + + | Date | Type | Department | Care Team | Description | +--------+ + + + + | 12/14/ | [facility] | [facility] | Umer Garcia MD | | | 2010 | Encounter | MED CTR XRAY [address] | | | | | [place] | [place] [address] | | | | | [place] [address] | [phone] | | | | | [phone] | | | +--------+ + + + + Social History + +-------+ +--------+------+ | Tobacco Use | Types | Packs/Day | Years | Date | | | | | Used | | + +-------+ +--------+------+ | Never Assessed | | | | | + +-------+ +--------+------+ + + + | Sex Assigned at [...] | + +--------+ + + + | VAS LOWER EXTREMITY | | 12/14/2010 | | Results for this | | ARTERIES BILATERAL | | 10:08 AM | | procedure are in the | | | | PDT | | results section. | + +--------+ + + + documented in this encounter Results VAS Lower Extremity Arteries Bilateral (12/14/2010 10:08 AM PDT) + + | Specimen | + + | | + + + + + | Narrative | Performed At | + + + | [facility] Diagnostic Imaging Department | [place] | | [address] , [place] | [facility] | | | DIAG IMG | | Extremity Arterial Ultrasound | | | [facility] Attending Physician: | | | [employer] Vp: MARY Manzano | | | Info: Low pulses bilateral, vascular claudication. | | | | | | RIGHT Peak End | | | Velocity Phasicity Systolic | | | Diastolic Ratio Distal/ (T,B or M | | | ) Velocity Velocity | | | Proximal PHP SOFTWARE ENGINEER 1.10 m/s .00 m/s | | | T PFA | | | 1.02 m/s .00 m/s <1 | | | M PRX SFA .73 m/s .00 m/s | | | <1 B MID SFA .84 m/s | | | .00 m/s 1.15 B | | | DST SFA .96 m/s .00 m/s 1.14 | | | T LETTY 2.11 m/s .00 | | | m/s 2.19 T ART THERAPIST | | | .69 m/s .00 m/s <1 | | | B DPA .26 m/s .00 m/s | | | <1 B | | | | | | LEFT Peak End | | | Velocity Phasicity | | | Systolic Diastolic Ratio Distal/ | | | (T,B or M ) Velocity Velocity | | | Proximal PHP SOFTWARE ENGINEER 1.08 m/s | | | .00 m/s T PFA | | | .61 m/s .00 m/s <1 | | | T PRX SFA .70 m/s .00 | | | m/s <1 B MID SFA | | | .67 m/s .00 m/s <1 | | | B DST SFA 1.39 m/s .00 m/s | | | <1 T LETTY .79 | | | m/s .00 m/s 2.07 | | | B ART THERAPIST .37 m/s .00 m/s | | | <1 B DPA .46 m/s | | | .00 m/s <1 | | | B | | | | | | Pulses: (P=Present, A=Absent) RIGHT Femoral: | | | LEFT Femoral: Post Tibial: | | | Post Tibial: Dorsalis | | | Pedis: Dorsalis Pedis: | | | BILATERAL LOWER EXTREMITY DUPLEX ARTERIAL ULTRASOUND 12/14/2010 | | | CLINICAL HISTORY: LOW PULSES AND VASCULAR CLAUDICATION. | | | COMPARISON: Lumbar MRI 11/04/2010. FINDINGS: Oconnell scale, | | | color Doppler and duplex Doppler interrogation of the bilateral | | | lower extremity arterial systems is performed. The right | | | common femoral artery is patent and demonstrates triphasic waveforms. | | | Proximal profunda femoral artery is patent but demonstrates | | | monophasic waveforms. However , significant stenosis is not | | | appreciated in this region on the color Doppler or oconnell scale | | | images. The right superficial femoral artery is patent, | | | demonstrating biphasic waveforms in its proximal to mid segments, | | | and triphasic waveforms distally, extending into the popliteal | | | artery. Peak systolic velocity elevation is also noted in the | | | popliteal artery (211 cm/sec versus 96 cm/sec in the distal SFA). | | | The posterior tibial and dorsalis pedis arteries are patent, | | | demonstrating biphasic waveforms. The left common femoral and | | | proximal profunda femoral arteries are patent, demonstrating | | | triphasic waveforms. The left superficial femoral, popliteal, | | | posterior tibial and dorsalis pedis arteries are patent, | | | demonstrating biphasic waveforms with the exception of the distal SFA, | | | which demonstrates triphasic waveforms. There is peak systolic | | | velocity elevation within the distal segment of the SFA as well. | | | IMPRESSION: 1. PATENT RIGHT LOWER EXTREMITY ARTERIAL | | | SYSTEM, WITH PEAK SYSTOLIC VELOCITY ELEVATION IN THE RIGHT POPLITEAL | | | ARTERY, SUGGESTING SOME DEGREE OF STENOSIS PROXIMAL TO THE THIS | | | LEVEL, ALTHOUGH WAVEFORMS ARE BIPHASIC TO TRIPHASIC. 2. | | | MONOPHASIC WAVEFORMS IN THE PROXIMAL RIGHT PROFUNDA FEMORAL | | | ARTERY, WITHOUT ASSOCIATED PEAK SYSTOLIC VELOCITY ELEVATION OR | | | SONOGRAPHICALLY VISIBLE STENOSIS. 3. PATENT LEFT LOWER | | | EXTREMITY ARTERIAL SYSTEM, WITH PEAK SYSTOLIC VELOCITY ELEVATION IN | | | THE DISTAL SFA ALTHOUGH WAVEFORMS ARE BIPHASIC TO TRIPHASIC | | | THROUGHOUT. COMMENT: CONSIDER FOLLOWUP CTA FOR FURTHER | | | CHARACTERIZATION OF THE FINDINGS DISCUSSED ABOVE. Dictated | | | Date/Time: 12/14/2010 13:52 Transcribed Date/Time: 12/14/2010 | | | 17:52 Sow Manager: <Electronically Signed by Shawn Espinal | | | MD Serg> 12/14/10 2212 | | + + + + + | Procedure Note | + + | Brian, Aleksander Conversion - 10/18/2013 2:37 PM [facility] | | Diagnostic Imaging Department | | [address] [facility], [facility] | | | | | | | | Extremity Arterial Ultrasound | | [facility] | | | | Attending Physician: [employer] Vp: MARY | | Additional Info: Low pulses bilateral, vascular claudication. | | | | | | RIGHT Peak End Velocity Phasicity | | Systolic Diastolic Ratio Distal/ (T,B or M | | ) | | Velocity Velocity Proximal | | | | PHP SOFTWARE ENGINEER 1.10 m/s .00 m/s T | | PFA 1.02 m/s .00 m/s <1 M | | PRX SFA .73 m/s .00 m/s <1 B | | MID SFA .84 m/s .00 m/s 1.15 B | | DST SFA .96 m/s .00 m/s 1.14 T | | LETTY 2.11 m/s .00 m/s 2.19 T | | ART THERAPIST .69 m/s .00 m/s <1 B | | DPA .26 m/s .00 m/s <1 B | | | | | | | | LEFT Peak End Velocity Phasicity | | Systolic Diastolic Ratio Distal/ (T,B or M | | ) | | Velocity Velocity Proximal | | | | PHP SOFTWARE ENGINEER 1.08 m/s .00 m/s T | | PFA .61 m/s .00 m/s <1 T | | PRX SFA .70 m/s .00 m/s <1 B | | MID SFA .67 m/s .00 m/s <1 B | | DST SFA 1.39 m/s .00 m/s <1 T | | LETTY .79 m/s .00 m/s 2.07 B | | ART THERAPIST .37 m/s .00 m/s <1 B | | DPA .46 m/s .00 m/s <1 B | | | | | | | | Pulses: (P=Present, A=Absent) | | RIGHT Femoral: LEFT Femoral: | | Post Tibial: Post Tibial: | | Dorsalis Pedis: Dorsalis Pedis: | | | | | | BILATERAL LOWER EXTREMITY DUPLEX ARTERIAL ULTRASOUND 12/14/2010 | | | | CLINICAL HISTORY: LOW PULSES AND VASCULAR CLAUDICATION. | | | | COMPARISON: Lumbar MRI 11/04/2010. | | | | FINDINGS: Oconnell scale, color Doppler and duplex Doppler interrogation of the | | bilateral lower | | extremity arterial systems is performed. | | | | The right common femoral artery is patent and demonstrates triphasic waveforms. | | Proximal | | profunda femoral artery is patent but demonstrates monophasic waveforms. However | | , significant | | stenosis is not appreciated in this region on the color Doppler or oconnell scale | | images. The right | | superficial femoral artery is patent, demonstrating biphasic waveforms in its | | proximal to mid | | segments, and triphasic waveforms distally, extending into the popliteal | | artery. Peak systolic | | velocity elevation is also noted in the popliteal artery (211 cm/sec versus 96 | | cm/sec in the distal | | SFA). The posterior tibial and dorsalis pedis arteries are patent, | | demonstrating biphasic waveforms. | | | | The left common femoral and proximal profunda femoral arteries are patent, | | demonstrating triphasic | | waveforms. The left superficial femoral, popliteal, posterior tibial and | | dorsalis pedis arteries are | | patent, demonstrating biphasic waveforms with the exception of the distal SFA, | | which demonstrates | | triphasic waveforms. There is peak systolic velocity elevation within the | | distal segment of the SFA | | as well. | | | | IMPRESSION: | | 1. PATENT RIGHT LOWER EXTREMITY ARTERIAL SYSTEM, WITH PEAK SYSTOLIC | | VELOCITY ELEVATION IN THE RIGHT POPLITEAL ARTERY, SUGGESTING SOME | | DEGREE OF STENOSIS PROXIMAL TO THE THIS LEVEL, ALTHOUGH WAVEFORMS ARE | | BIPHASIC TO TRIPHASIC. | | | | 2. MONOPHASIC WAVEFORMS IN THE PROXIMAL RIGHT PROFUNDA FEMORAL | | ARTERY, WITHOUT ASSOCIATED PEAK SYSTOLIC VELOCITY ELEVATION OR | | SONOGRAPHICALLY VISIBLE STENOSIS. | | | | 3. PATENT LEFT LOWER EXTREMITY ARTERIAL SYSTEM, WITH PEAK SYSTOLIC | | VELOCITY ELEVATION IN THE DISTAL SFA ALTHOUGH WAVEFORMS ARE BIPHASIC | | TO TRIPHASIC THROUGHOUT. | | | | COMMENT: CONSIDER FOLLOWUP CTA FOR FURTHER CHARACTERIZATION OF THE | | FINDINGS DISCUSSED ABOVE. | | | | Dictated Date/Time: 12/14/2010 13:52 | | Transcribed Date/Time: 12/14/2010 17:52 | | Sow Manager: | | <Electronically Signed by Shawn Ulrich MD> 12/14/102211 | + + + +---------+ + + | Performing | Address | City/State/Zipcode | Phone Number | | Organization | | | | + +---------+ + + | [place] | | | | | [facility] | | | | + +---------+ + + documented in this encounter Visit Diagnoses Not on filedocumented in this encounter"
--- OUTSIDE RECORDS SUMMARY | ~2020-05-22 | XMS | Encounter Summary ---
Demographics + + + | Address | [address] | | | [place] [address] | + + + | Home Phone | | + + + | Preferred Language | Unknown | + + + | Marital Status | | + + + | Sabianist Affiliation | [phone] | + + + | Race | White | + + + | Ethnic Group | Not or | + + + Author + + + | Author | [facility] | | | and [place] | + + + | Organization | [facility] | | | and [...] Team Providers + +------+ + | Care Anchorman Name | Role | Phone | + +------+ + | Paul Hogan MD | PCP | | + +------+ + Encounter Details +--------+ + + + + | Date | Type | Department | Care Team | Description | +--------+ + + + + | 04/24/ | Hospital | [facility] | Umer Garcia MD | Cervical spondylosis | | 2015 | Encounter | MED CTR | [address] | with myelopathy | | | | ELECTRODIAGNOSTICS | [place] [address] | (Primary Dx) | | | | [address] | [phone] | | | | | [place] [address] | | | | | | [phone] | | | +--------+ + + + [...] + + documented as of this encounter Procedure Notes Dilip Talbot MD - 04/24/2015 6:43 PM PDTAssociated Order(s): ECG 12 LEAD Adult ECG Repo rt Name: Mellisa Carrizales Age: 80 y.o. Gender: female 04/24/15 at 14:02 Narrative Interpretation: Sinus rhythm. First-degree AV block. 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 documented in this enc ounter Plan of Treatment Not on filedocumented as of this encounter Procedures + +--------+ + + + | Procedure Name | Priori | Date/Time | Associated Diagnosis | Comments | | | ty | | | | + +--------+ + + + | ECG 12 LEAD | Routin | 04/24/2015 | | Results for this | | | e | 6:43 PM | | procedure are in the | | | | PDT | | results section. | + +--------+ + + + documented in this encounter Results ECG 12 lead (04/24/2015 6:43 PM PDT) + + + | Narrative | Performed At | + + + | Dilip Talbot MD 04/24/2015 18:43 Adult ECG Report | | | Name: Mellisa Carrizales Age: 80 y.o. Gender: female 04/24/15 | | | at 14:02 Narrative Interpretation: Sinus rhythm. First-degree AV | | | block. Incomplete right bundle branch block with left anterior | | | hemiblock. | | + + + documented in this encounter Visit Diagnoses + + | Diagnosis | + + | Cervical spondylosis with myelopathy - Primary | + + documented in this encounter"
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
--- OUTSIDE RECORDS SUMMARY | ~2020-05-22 | XMS | Encounter Summary ---
Demographics + + + | Address | [address] | | | [place] [address] | + + + | Home Phone | | + + + | Preferred Language | Unknown | + + + | Marital Status | | + + + | Samaritan Affiliation | 1028 | + + + [...] Team Providers + +------+ + | Care Show Host/Hostess Name | Role | Phone | + +------+ + | Paul Hogan MD | PCP | | + +------+ + Encounter Details +--------+ + + + + | Date | Type | Department | Care Team | Description | +--------+ + + + + | 04/24/ | Hospital | [facility] | Umer Garcia MD | Cervical spondylosis | | 2015 | Encounter | [facility] | [address] | with radiculopathy; | | | | [address] | [place] [address] | Cervical | | | | [place] | [phone] | spondylosis with | | | | [address] | | myelopathy; | | | | [phone] | | Degenerative disc | | | [...] | + +--------+ + + + | CBC WITH | Routin | 04/24/2015 | Cervical | Results for this | | DIFFERENTIAL | e | 1:43 PM | spondylosis with | procedure are [...] | + +--------+ + + + | BASIC METABOLIC | Routin | 04/24/2015 | Cervical | Results for this | | PANEL | e | 1:43 PM | spondylosis with | procedure are [...] + + documented in this encounter Results CBC with Differential (04/24/2015 1:43 PM PDT) + +-------+ + + + | Component | Value | Ref Range | Performed | Pathologist | | | | | At | Signature | + +-------+ + + + | White Blood | 7.9 | 4.0 - 11.0 K/uL | [facility] | | | Cells | | | [facility] | | | | | [facility] | | | | | | [facility] - | | | | | | LAB[facility]ATORY | | + +-------+ + + + | Red Blood | 4.14 | 3.70 - 5.20 | [facility] | | | Cells | | M/uL | [facility] | | | | | | [facility] | | | | | | [facility] - | | | | | | LAB[facility]ATORY | | + +-------+ + + + | Hemoglobin | 13.1 | 11.5 - 16.0 | [facility] | | | | | g/dL | [facility] | | | | | | [facility] | | | | | [facility] - | | | | | | [facility] | | + +-------+ + + + | Hematocrit | 39.1 | 34.0 - 47.0 % | [facility] | | | | | | [facility] | | | | [facility] | [facility] | | | | | [facility] - | | | | | | [facility]ATORY | | + +-------+ + + + | MCV | 94.5 | 83.0 - 101.0 fL | [facility] | | | | | | [facility] | | | | | | [facility] | | | | | [facility] - | | | | | | LAB[facility]ATORY | | + +-------+ + + + | MCH | 31.6 | 28.0 - 35.0 pg | [facility] | | | | | | [facility] | | | | | | [facility] | | | | | | [facility] - | | | | | | LAB[facility]ORY | | + +-------+ + + + | MCHC | 33.5 | 32.0 - 36.0 | [facility] | | | | | g/dL | [facility] | | | | | | [facility] | | | | | | [facility] - | | | | | | [facility]ATORY | | + +-------+ + + + | RDW-CV | 13.3 | <15.0 % | [facility] | | | | | | [facility] | | | | | | [facility] | | | | | | [facility] - | | | | | | [facility]ATORY | | + +-------+ + + + | Platelet | 187 | 140 - 440 K/uL | [facility] | | | Count | | | [facility] | | | | | | [facility] | | | | | | [facility] - | | | | | | [facility]ORY | | + +-------+ + + + | MPV | 9.2 | fL | [facility] | | | | | | [facility] | | | | [facility] | [facility] | | | | | [facility] - | | | | | | [facility]ATORY | | + +-------+ + + + | % | 52.0 | 45.0 - 82.0 % | [facility] | | | Neutrophils | | | [facility] | | | | | | [facility] | | | | | | [facility] - | | | | | | LAB[facility]ATORY | | + +-------+ + + + | % | 34.8 | 20.0 - 45.0 % | [facility] | | | Lymphocytes | | | [facility] | | | | | | [facility] | | | | | | [facility] - | | | | | | LAB[facility]ATORY | | + +-------+ + + + | % Monocytes | 11.6 | 4.0 - 12.0 % | [facility] | | | | | | [facility] | | | | | | [facility] | | | | | | [facility] - | | | | | | LAB[facility]ATORY | | + +-------+ + + + | % | 1.4 | 0.0 - 5.0 % | [facility] | | | Eosinophils | | | [facility] | | | | | | [facility] | | | | | | [facility] - | | | | | | LAB[facility]ATORY | | + +-------+ + + + | % Basophils | 0.2 | 0.0 - 1.0 % | [facility] | | | | | | [facility] | | | | | | [facility] | | | | | | [facility] - | | | | | | LAB[facility]ATORY | | + +-------+ + + + | Absolute | 4.10 | 1.80 - 8.50 | [facility] | | | Neutrophils | | K/uL | [facility] | | | | | | [facility] | | | | | | [facility] - | | | | | | LABORATORY | | + +-------+ + + + | Absolute | 2.70 | 0.60 - 3.20 | [facility] | | | Lymphocytes | | K/uL | [facility] | | | | | | [facility] | | | | | | [facility] - | | | | | | LAB[facility]ATORY | | + +-------+ + + + | Absolute | 0.90 | 0.00 - 1.00 | [facility] | | | Monocytes | | K/uL | [facility] | | | | | | [facility] | | | | | | [facility] - | | | | | | LABORATORY | | + +-------+ + + + | Absolute | 0.10 | 0.00 - 0.40 | [facility] | | | Eosinophils | | K/uL | [facility] | | | | | | [facility] | | | | | | [facility] - | | | | | | LABORATORY | | + +-------+ + + + | Absolute | 0.00 | 0.00 - 0.10 | [facility] | | | Basophils | | K/uL | [facility] | | | | | | [facility] | | | | | | [facility] - | | | | | | LABORATORY | | + +-------+ + + + + + | Specimen | + + | Blood | + + + + + + + | Performing | Address | City/State/Zipcode | Phone Number | | Organization | | | | + + + + + | [facility] | [address] | [place] | [phone] | | [facility] | | [address] | | | - LABORATORY | | | | + + + + + Basic Metabolic Panel (04/24/2015 1:43 PM PDT) + + + + + + | Component | Value | Ref Range | Performed | Pathologist | | | | | At | Signature | + + + + + + | Na | 136 | 136 - 149 | [facility] | | | | | mmol/L | [facility] | | | | | | [facility] | | | | | | [facility] - | | | | | | LABORATORY | | + + + + + + | K | 3.4 (L) | 3.5 - 5.1 | [facility] | | | | | mmol/L | [facility] | | | | | [facility] | | | | | | [facility] - | | | | | | LABORATORY | | + + + + + + | Cl | 95 (L) | 98 - 109 mmol/L | [facility] | | | | | | [facility] | | | | | | [facility] | | | | | | [facility] - | | | | | | LABORATORY | | + + + + + + | CO2 | 29 | 24 - 31 mmol/L | [facility] | | | | | | [facility] | | | | | | [facility] | | | | | | [facility] - | | | | | | LABORATORY | | + + + + + + | Anion Gap | 12 | 3 - 16 mmol/L | [facility] | | | | | | [facility] | | | [facility] | | [facility] | | | | | | [facility] - | | | | | | LABORATORY | | + + + + + + | Glucose | 123 (H) | 70 - 109 mg/dL | [facility] | | | | | | [facility] | | | | | | [facility] | | | | | | C[facility] - | | | | | | LABORATORY | | + + + + + + | BUN | 40 (H) | 7 - 18 mg/dL | [facility] | | | | | | [facility] | | | [facility] | | [facility] | | | | | | [facility] - | | | | | | LABORATORY | | + + + + + + | Creatinine | 0.87 | 0.60 - 1.30 | [facility] | | | | | mg/dL | [facility] | | | | | | [facility] | | | | | | CENTER - | | | | | | LABORATORY | | + + + + + + | eGFR, | >60Comment: GLOMERULAR | >=60 | [facility] | | | non- | FILTRATION | mL/min/1.73m2 | [facility] | | | [place]ic | RATE,ESTIMATED | | MEDICAL | | | | mL/min/1.66k1Rdnw than | | CENTER - | | | | 60 Chronic kidney | | LABORATORY | | | | disease,if found over a | | | | | | 3-month period.Less than | | | | | | 15 Kidney failureFor | | | | | | | | | | | | Americans,multiply the | | | | | | calculated GFR by 1.21. | | | | | | | | | | + + + + + + | Calcium | 9.8 | 8.3 - 10.5 | [facility] | | | | | mg/dL | [facility] | | | | | | MEDICAL | | | | | | CENTER - | | | | | | LABORATORY | | + + + + + + | BUN/Creatin | 46.0 | | [facility] | | | ine Ratio | | | [facility] | | | | | | MEDICAL | | | | | | CENTER - | | | | | | LABORATORY | | + + + + + + + + | Specimen | + + | Blood | + + + + + + + | Performing | Address | City/State/Zipcode | Phone Number | | Organization | | | | + + + + + | [facility] | [address] | [place] | [phone] | | [facility] | | [address] | | | - LABORATORY | | | | + + + [...]
--- OUTSIDE RECORDS SUMMARY | ~2020-05-22 | XMS | Encounter Summary ---
Demographics + + + | Address | [address] | | | [place] [address] | + + + | Home Phone | | + + + | Preferred Language | Unknown | + + + | Marital Status | | + + + | Advent Affiliation | 1028 | + + + | Race | White | + + + | Ethnic Group | Not or | + + + Author + + + | Author | [facility] | | | and [place] | + + + | Organization | [facility] | | | [...] Team Providers + +------+ + | Care Fermentation Engineer Name | Role | Phone | + +------+ + | Paul Hogan MD | PCP | | + +------+ + Reason for Referral Diagnostic/Screening (Routine) +--------+--------+ + + + + | Status | Reason | Specialty | Diagnoses / | Referred By | Referred To | | | | | Procedures | Contact | Contact | +--------+--------+ + + + + | Closed | | MRI | Diagnoses | Umer Garcia | | | | | | Cervical | MD [address] | | | | | | spondylosis | [address] | | | | | | with | [facility], | | | | | | myelopathy | [place] [address] | | | | | | Degenerative | Phone: | | | | | | disc | [phone] | | | | | | disease, | Fax: | | | | | | cervical | [phone] | | | | | | Procedures | | | | | | | MRI Cervical | | | | | | | Spine wo | | | | | | | Contrast | | | +--------+--------+ + + + + Reason for Visit + + + | Reason | Comments | + + + | Back Pain | | + + + Evaluate & Treat (Routine) +--------+--------+ + + + + | Status | Reason | Specialty | Diagnoses / | Referred By | Referred To | | | | | Procedures | Contact | Contact | +--------+--------+ + + + + | Closed | | Neurosurgery | Diagnoses | Samira, | Umer Garcia | | | | | Acute low | Paul Yu Kristine Hernandez MD [address] | | | | | back pain | [address] | | | | | with | [place] | [facility] [place] | | | | | radicular | [place] [address] | [address] | | | | | symptoms, | [place], | Phone: | | | | | duration | [place] | [phone] | | | | | less than 6 | [address] | Fax: | | | | | weeks | Phone: | [phone] | | | | | Procedures | [phone] | | | | | | [place] OFFICE | Fax: | | | | | | CONSULTATION | [phone] | | | | | | NEW/ESTAB | | | | | | | PATIENT 60 | | | | | | | MIN | | | +--------+--------+ + + + + Encounter Details +--------+---------+ + + + | Date | Type | Department | Care Team | Description | +--------+---------+ + + + | 03/03/ | Office | [facility] | Umer Garcia MD | Cervical spondylosis | | 2015 | Visit | NEUROSURGERY [address] | [address] | with myelopathy | | | | [address] | [place] [address] | (Primary Dx); | | | | [place] | [phone] | Degenerative disc | | | | [address] | | disease, cervical; | | | | [phone] | | DEGENERATIVE DISC | | | | | | DISEASE, LUMBAR | | | | | | SPINE; Facet | | | | | | arthropathy, lumbar; | | | | | | Lumbar | | | | | | radiculopathy | +--------+---------+ + + + Social History [...] | Yes | 0 Standard drinks | 0.0 | Social | | | or equivalent | | [...] + + + | Blood Pressure | 105/63 | 03/03/2015 3:20 PM | | | | | PDT | | + + + + + | Pulse | 70 | 03/03/2015 3:20 PM | | | | | PDT | | + + + + + | Temperature | - | - | | + + + + + | Respiratory Rate | 16 | 03/03/2015 3:20 PM | | | | | PDT | | + + + + + | Oxygen Saturation | - | - | | + + + + + | Inhaled Oxygen | - | - | | | Concentration | | | | + + + + + | Weight | 76.2 kg (168 lb) | 03/03/2015 3:20 PM | | | | | PDT | | + + + + + | Height | 165.1 cm (5' 5") | 03/03/2015 3:20 PM | | | | | PDT | | + + + + + | Body Mass Index | 27.96 | 03/03/2015 3:20 PM | | | | | PDT | | + + + + + documented in this encounter Progress Notes Umer Garcia MD - 03/03/2015 3:21 PM PDTFormatting of this note might be different from t he original. Umer Garcia MD [address] [place] [address], [address] [place], [place] [id number] FAX: NEUROSURGERY HISTORY AND PHYSICAL EXAMINATION CHIEF [...] and pain into her shoulders and hands. The symptoms have been gradually worsening. She also has severe low back pain [...] HYDROcodone-acetaminophen (NORCO) 5-325 mg per tablet Take 1 tablet by mouth every 6 ho urs as needed for Pain. HYDROcodone-acetaminophen (VICODIN) 5-500 mg per tablet 1/2-1 tablet by mouth as needed KRILL OIL 1000 MG CAPS Take 1,000 mg by mouth Daily. lisinopril (PRINIVIL, ZESTRIL) 20 mg tablet Take 20 mg by mouth 2 times daily. omeprazole (PRILOSEC) 20 mg capsule Take 20 [...] no rheumatoid arthritis. PHYSICAL EXAMINATION: Blood pressure 105/63, pulse 70, resp. rate 16, height 1.651 m (5' 5"), weight 76.204 kg (1 68 lb). Body mass index is 27.96 kg/(m^2). GENERAL: Mellisa Carrizales is in no acute distress with unlabored respirations. The patie nt does appear uncomfortable throughout the exam today. HEENT: HEAD/FACE: EYES: EARS: NASOPHARNYX: OROPHARNYX: Normocephalic and atraumatic. There are no areas of recent trauma. Normal sclerae without icterus. No drainage or tenderness. Clear without drainage. Clear without erythema. NECK (ANTERIOR): Supple and [...] has no apparent deficits with short or intermediate school teacher memory. CRANIAL NERVES: II: Acuity is intact. [...] Intrinsics 5 5 Ulnar Intrinsics 5 5 Global Program Manager Strength 5 5 Hip Flexion 5 5 [...] today during the visit. The MRI from 2014 shows L2-S1 DDD with the worst findings at L4-5 and L5-S1. At those segments she has significant L4-S1 facet arthropathy and foraminal stenosis. She has a healed T12 co mpression fracture not previously present on her prior images. Lumbar flexion and extension views show loss of disc height as described above and loss of lordosis. ASSESSMENT: NEUROSURGICAL DIAGNOSES: Encounter Diagnoses Name Primary? Cervical spondylosis with myelopathy Yes Degenerative disc disease, cervical DEGENERATIVE DISC DISEASE, LUMBAR SPINE Facet arthropathy, lumbar Lumbar radiculopathy GENERAL DIAGNOSES: Past Medical History Diagnosis Date DVT of leg (deep venous thrombosis) ([facility]) Osteoarthritis Depression Gastric reflux Hypertension Hyperlipidemia Migraine Neuropathy Poor circulation Hypothyroid PLAN: Mellisa Solomonjujuludwin presented today, and it was a pleasure seeing this patient and assessing her problems. The patient has new neck pain symptoms with increased reflexes and pain in a ddition to her back complaints. I had a lengthy discussion with the patient about her options for care including surgical a nd non-surgical options. I recommended before we make a decision for us to obtain new cervi cassi imaging. She will obtain these images and then follow-up in the near future/ ELECTRONICALLY SIGNED BY: Umer Garcia MD, 03/05/2015 15:50 documented in this encou nter Plan of Treatment + +---------+--------+ + + | Name | Type | Priori | Associated Diagnoses | Order Schedule | | | | ty | | | + +---------+--------+ + + | XR Cervical Spine 4 | Imaging | Routin | Cervical | Expected: 03/13/2015 | | or 5 Vws | | e | spondylosis with | (Approximate), | | | | | myelopathy | Expires: 03/01/2016 | | | | | Degenerative disc | | | | | | disease, cervical | | + +---------+--------+ + + | MRI Cervical Spine | Imaging | Routin | Cervical | Expected: 03/13/2015 | | wo Contrast | | e | spondylosis with | (Approximate), | | | | | myelopathy | Expires: 03/01/2016 | | | | | Degenerative disc | | | | | | disease, cervical | | + +---------+--------+ + + documented as of this encounter Visit Diagnoses + + | Diagnosis | + + | Cervical spondylosis with myelopathy - Primary | + + | Degenerative disc disease, cervical Degeneration of cervical intervertebral disc | + + | DEGENERATIVE DISC DISEASE, LUMBAR SPINE Degeneration of lumbar or lumbosacral | | intervertebral disc | + + | Facet arthropathy, lumbar Lumbosacral spondylosis without myelopathy | + + | Lumbar radiculopathy Thoracic or lumbosacral neuritis or radiculitis, unspecified | + + documented in this encounter
--- OUTSIDE RECORDS SUMMARY | ~2020-05-22 | XMS | Encounter Summary ---
Demographics + + + | Address | [address] | | | [place] [address] | + + + | Home Phone | | + + + | Preferred Language | Unknown | + + + | Marital Status | | + + + | Latter-Day Affiliation | 1028 | + + + | Race | White | + + + | Ethnic Group | Not or | + + + Author + + + | Author | [facility] | | | and [place] | + + + | Organization | [facility] | | | [...] Team Providers + +------+ + | Care Hog Raiser Name | Role | Phone | + +------+ + PCP | Unavailable | + +------+ + Encounter Details +--------+ + + + + | Date | Type | Department | Care Team | Description | +--------+ + + + + | 06/04/ | Hospital | [facility] | Conversion | Lower back pain | | 2012 | Encounter | CENTER [facility] | Transaction, | | | | | [address] | Provider Unknown | | | | | [place] | [phone] | | | | | [address] | | | | | | [phone] | Jesse Mcarthur, | | | | | | [address] | | | | | | [place], [place] | | | | | | [address] | | | | | | | [...] + + +---------+ + + | | 1/2-1 tablet by | | 0 | 05/25/20 | | | HYDROcodone-acetamin | mouth as needed | | | 12 | 5 | | ophen (VICODIN) | | | | | | | 5-500 mg per tablet | | | | [...] documented as of this encounter Progress Notes Conversion Transaction, Provider Unknown - 06/04/2013 9:08 AM PDTFormatting of this note m ight be different from the original. Progress Notes by Estefania Sylvester RN at 06/04/13907 Author: Estefania Sylvester RN Service: Radiology Author Type: Registered Nurse Filed: 06/04/13909 Date of Service: 06/04/13907 Status: Signed Actuary Manager: Estefania Sylvester RN (Registered Nurse) DISCHARGE INSTRUCTIONS GIVEN VERBAL AND WRITTEN. AMBULATED IN [place] WITHOUT PAIN, NUMBNESS OR TINGLING. WILL DISCHARGE HOME WITH FRIEND TO ESCORT. DRESSING WITH SMALLNT OF CINTHIA DUNCAN. onver chelsey Transaction, Provider Unknown - 06/04/2013 8:50 AM PDT Progress Notes by Estefania Sylvester RN at 06/04/13849 Author: Estefania Sylvester RN Service: Radiology Author Type: Registered Nurse Filed: 06/04/13850 Date of Service: 06/04/13849 Status: Signed Actuary Manager: Estefania Sylvester RN (Registered Nurse) Pt awake and denies pain/sob/numbness or tingling in lower extremities. Sitting up drinkin g juice and denies nausea. BP down slightly, will monitor. docume nted in this encounter Plan of Treatment Not on filedocumented as of this encounter Procedures + +--------+ + + + | Procedure Name | Priori | Date/Time | Associated Diagnosis | Comments | | | ty | | | | + +--------+ + + + | IR EPIDURAL STEROID | Routin | 06/04/2013 | | Results for this | | INJ LUMBAR SACRAL | e | 8:31 AM | | procedure are in the | | INTERLAMINAR | | PDT | | results section. | + +--------+ + + + documented in this encounter Results IR Epidural Steroid Inj Lumbar Sacral Interlaminar (06/04/2013 8:31 AM PDT) + + | Specimen | + + | | + + + + + | Impressions | Performed At | + + + | Successful injection of long-acting steroids at L2-L3 posterior | | | epidural space using interlaminar route under fluoroscopic guidance | | | without incident. | | + + + + + + | Narrative | Performed At | + + + | [facility]LL[facility] CARRIZALES IR EPIDURAL INJECTION LUMBAR SPINE 06/04/2013 8:31 | | | AM HISTORY: 78 years. Female. Lower back pain with radiation | | | to both hips. She rates her pain at the visual analog scale 8/10. | | | 724.2 PROCEDURE Epidural injection of long-acting steroids at the | | | L2-3 level using interlaminar access under fluoroscopic guidance. | | | MEDICATIONS Lidocaine 1% for local anesthesia. Mixture of Kenalog | | | 40 mg and preservative-free saline 9 mL. Isovue 200 1 mL. No | | | adverse drug reactions. Cumulative radiation dose: 9 mGy | | | Fluoroscopy time: 0.7 minutes. DESCRIPTION OF PROCEDURE Informed | | | written consent obtained from the patient after explaining the | | | procedure, risks, and alternatives. The patient understood the | | | discussion and expressed her wish to proceed. The appropriate side | | | and site was labeled and initialed as an independent process | | | antecedent to the imaging and intervention, as per protocol at this | | | institution. The patient was placed prone on the x-ray table. | | | Site for L2-L3 interlaminar epidural injection localized under | | | fluoroscopy. Skin was prepped in the usual sterile fashion. Skin and | | | subcutaneous tissues were infiltrated with 1% lidocaine. An 18-gauge | | | Tuohy needle was advanced through the L2-L3 interspace under | | | fluoroscopic guidance with oblique fluoroscopy. On reaching the spinal | | | laminar line, inner stylet was removed and needle was advanced sub | | | millimeter at a time with intermittent pressure on a syringe filled | | | with 5 mL of air. On sudden loss of resistance, syringe was removed | | | and injection of about 2 mL of Isovue 200 revealed posterior epidural | | | spread. At this point, above mentioned mixture of Kenalog was injected | | | and needle was removed. The patient tolerated the procedure well. | | | No procedural complications. Sterile dressing applied after removal of | | | the needle. | | + + + + + | Procedure Note | + + | Brian, Rad Conversion - 05/03/2019 6:12 PM PDT MELLISA MALDONADOTIR EPIDURAL INJECTION | | LUMBAR SPINE06/04/2013 8:31 AM HISTORY:78 years. Female. Lower back pain with radiation | | to both hips. She rates her pain at the visual analog scale 8/10. 724.2 | | PROCEDUREEpidural injection of long-acting steroids at the L2-3 level usinginterlaminar | | access under fluoroscopic guidance. MEDICATIONSLidocaine 1% for local anesthesia.Mixture | | of Kenalog 40 mg and preservative-free saline 9 mL.Isovue 200 1 mL. No adverse drug | | reactions. Cumulative radiation dose: 9 mGyFluoroscopy time: 0.7 minutes. DESCRIPTION OF | | PROCEDUREInformed written consent obtained from the patient after explaining the | | procedure, risks, and alternatives. The patient understood the discussion and expressed | | her wish to proceed.The appropriate side and site was labeled and initialed as an | | independent process antecedent to the imaging and intervention, as per protocol at this | | institution. The patient was placed prone on the x-ray table. Site for L2-L3 | | interlaminar epidural injection localized under fluoroscopy. Skin was prepped in the | | usual sterile fashion. Skin and subcutaneous tissues were infiltrated with 1%lidocaine. | | An 18-gauge Tuohy needle was advanced through the L2-L3 interspace under fluoroscopic | | guidance with oblique fluoroscopy. On reaching the spinal laminar line, inner stylet was | | removed and needle was advanced sub millimeter at a time with intermittent pressure on | | a syringe filled with 5 mL of air. On sudden loss of resistance, syringe was removed and | | injection of about 2 mL of Isovue 200 revealed posterior epidural spread. At this | | point, above mentioned mixture of Kenalog was injected and needle was removed. The | | patient tolerated the procedure well. No procedural complications. Sterile dressing | | applied after removal of the needle. IMPRESSION: Successful injection of long-acting | | steroids at L2-L3 posterior epidural space using interlaminar route under fluoroscopic | | guidance without incident. | | 8:45 AM | | | |The patient was placed prone on the x-ray table. Site for L2-L3 interlaminar epidural inje ction localized under fluoroscopy. Skin was prepped in the usual sterile fashion. Skin and s ubcutaneous tissues were infiltrated with 1% | |lidocaine. An 18-gauge Tuohy needle was advanced through the L2-L3 interspace under fluoros copic guidance with oblique fluoroscopy. On reaching the spinal laminar line, inner stylet w as removed and needle was advanced sub millimeter at a time with | |intermittent pressure on a syringe filled with 5 mL of air. On sudden loss of resistance, s yringe was removed and injection of about 2 mL of Isovue 200 revealed posterior epidural spr ead. At this point, above mentioned | |mixture of Kenalog was injected and | | needle was removed. The patient tolerated the procedure well. No procedural complications. Sterile dressing applied after removal of the needle. | | | |IMPRESSION: | |Successful injection of long-acting steroids at L2-L3 posterior epidural space using inter laminar route under fluoroscopic guidance without incident. | | | | | + + documented in this encounter Visit Diagnoses + + | Diagnosis | + + | Lower back pain Lumbago | + + documented in this encounter"
--- OUTSIDE RECORDS SUMMARY | ~2020-05-22 | XMS | Encounter Summary ---
Demographics + + + | Address | [address] | | | [place] [address] | + + + | Home Phone | | + + + | Preferred Language | Unknown | + + + | Marital Status | | + + + | Restoration Affiliation | 1028 | + + + | Race | White | + + + | Ethnic Group | Not or | + + + Author + + + | Author | [facility] | | | and [place] | + + + | Organization | [facility] | | | and [...] Team Providers + +------+ + | Care Computer Tech Name | Role | Phone | + [...] | | [address] | [place] [address] | | | | | [place] | [phone] | | | | | [address] | | | | | | [phone] | | | +--------+ + + + [...] Miscellaneous Notes Telephone Encounter - Lillian Narayanan, Electrical High Tension Tester - 08/07/2017 3:47 PM PSTCalled in Lorazepam 0.5 mg prescription to [facility] in [place]. Patient notified and verbalized u nderstanding. [...] her avril strophobia. Please advise.Electronically signed by Marcia Hutton at 08/01 2:53 PM PSTTelephone Encounter - Elizabeth Fitch Medical Assistant - 08/01/2017 2:08 PM PSTCalled patient regarding MRI of the cervical spine approval. Patient would like MRI o rders sent to [facility] and would like appointment Monday or in [...]
--- OUTSIDE RECORDS SUMMARY | ~2020-05-22 | XMS | Encounter Summary ---
Demographics + + + | Address | [address] | | | [place] [address] | + + + | Home Phone | | + + + | Preferred Language | Unknown | + + + | Marital Status | | + + + | Zoroastrian Affiliation | 1028 | + + + | Race | White | + + + | Ethnic Group | Not or | + + + Author + + + | Author | [facility] | | | and [place] | + + + | Organization | [facility] | | | [...] Team Providers + +------+ + | Care Transit Survey Worker Name | Role | Phone | + +------+ + | Paul Hogan MD | PCP | | + +------+ + Encounter Details +--------+ + + + + | Date | Type | Department | Care Team | Description | +--------+ + + + + | 04/24/ | Orders Only | [facility] | Umer Garcia MD | Cervical spondylosis | | 2015 | | NEUROSURGERY [address] | [address] | with radiculopathy | | | | [address] | [place] [address] | (Primary Dx); | | | | [place] | [phone] | Cervical spondylosis | | | | [address] | | with myelopathy; | | | | [phone] | | Degenerative disc | | | [...] as of this encounter Plan of Treatment + +------+--------+ + + | Name | Type | Priori | Associated Diagnoses | Order Schedule | | | | ty | | | + +------+--------+ + + | ECG 12 lead | ECG | Routin | Cervical | Expected: 06/23/2015 | | | | e | spondylosis with | (Approximate), | | | | | radiculopathy | Expires: 10/21/2015 | | | | | Cervical spondylosis | | | | | | with myelopathy | | | | | | Degenerative disc | | | | | | disease, cervical | | | | | | Foraminal stenosis | | | | | | of cervical region | | + +------+--------+ + + documented as of this encounter Results CBC with Differential (04/24/2015 1:43 PM PDT) + +-------+ + + + | Component | Value | Ref Range | Performed | Pathologist | | | | | At | Signature | + +-------+ + + + | White Blood | 7.9 | 4.0 - 11.0 K/uL | [facility] | | | Cells | | | [facility] | | | | | | MEDICAL | | | | | | CENTER - | | | | | | LABORATORY | | + +-------+ + + + | Red Blood | 4.14 | 3.70 - 5.20 | [facility] | | | Cells | | M/uL | [facility] | | | | [...] | | | Eosinophils | | | [facility] | | | | [...] | | Neutrophils | | K/uL | [facility] | | | | | | MEDICAL | | | | | | CENTER - | | | | | | LABORATORY | | + +-------+ + + + | Absolute | 2.70 | 0.60 - 3.20 | [facility] | | | Lymphocytes | | K/uL | [facility] | | | | | | MEDICAL | | | | | | CENTER - | | | | | | LABORATORY | | + +-------+ + + + | Absolute | 0.90 | 0.00 - 1.00 | [facility] | | | Monocytes | | K/uL | [facility] | | | | | | MEDICAL | | | | | | CENTER - | | | | | | LABORATORY | | + +-------+ + + + | Absolute | 0.10 | 0.00 - 0.40 | [facility] | | | Eosinophils | | K/uL | [facility] | | | | | | MEDICAL | | | | | | CENTER - | | | | | | LABORATORY | | + +-------+ + + + | Absolute | 0.00 | 0.00 - 0.10 | [facility] | | | Basophils | | K/uL | [facility] | | | | | | [...] | + + + + + | [facility] | [address] | [place] | [phone] | | [facility] | | [address] | | | - LABORATORY | | [...] | | | | mmol/L | [facility] | | | | | | MEDICAL | | | | | | CENTER - | | | | | | LABORATORY | | + + + + + + | K | 3.4 (L) | 3.5 - 5.1 | [facility] | | | | | mmol/L | [facility] | | | | [...] (H) | 7 - 18 mg/dL | [facility] | | | | | | [facility] | | | | | | MEDICAL | | | | | | CENTER - | | | | | | LABORATORY | | + + + + + + | Creatinine | 0.87 | 0.60 - 1.30 | [facility] | | | | | mg/dL | [facility] | | | | | | MEDICAL | | | | | | CENTER - | | | | | | LABORATORY | | + + + + + + | eGFR, | >60Comment: GLOMERULAR | >=60 | [facility] | | | non- | FILTRATION | mL/min/1.73m2 | [facility] | | | Icelandic | RATE,ESTIMATED | | MEDICAL | | | | mL/min/1.52t5Valu than | | CENTER - | | [...] | ine Ratio | | | [facility] | | [...] | + + + + + | [facility] | [address] | [place], [place] | [phone] | | [facility] | | [address] | | | - LABORATORY | | | | + + + + + XR Chest PA and Lateral (04/24/2015 1:26 [...] | + + + + + | [facility] | [address] | [place], [place] | [phone] | | [facility] | | [address] | | | - IMAGING | | [...]
--- OUTSIDE RECORDS SUMMARY | ~2020-05-22 | XMS | Encounter Summary ---
Demographics + + + | Address | [address] | | | [place] [address] | + + + | Home Phone | | + + + | Preferred Language | Unknown | + + + | Marital Status | | + + + | Catholic Affiliation | 1028 | + + + | Race | White | + + + | Ethnic Group | Not or | + + + Author + + + | Author | [facility] | | | and [place] | + + + | Organization | [facility] | | | and [...] Team Providers + +------+ + | Care Commercial Green Building Architect Name | Role | Phone | + +------+ + PCP | Unavailable | + +------+ + Encounter Details +--------+ + + + + | Date | Type | Department | Care Team | Description | +--------+ + + + + | 06/03/ | [facility] | [facility] | David Lyons | | | 2008 | Encounter | MED CTR SLEEP | [address] | | | | | [place] [address] | [place] | | | | | [place] | [place] [address] | | | | | [address] | [phone] | | | | | [phone] | | | +--------+ + + + [...]
--- OUTSIDE RECORDS SUMMARY | ~2020-05-22 | XMS | Encounter Summary ---
Demographics + + + | Address | [address] | | | [place] [address] | + + + | Home Phone | | + + + | Preferred Language | Unknown | + + + | Marital Status | | + + + | Buddhism Affiliation | 1028 | + + + | Race | White | + + + | Ethnic Group | Not or | + + + Author + + + | Author | [facility] | | | and [place] | + + + | Organization | [facility] | | [...] Team Providers + +------+ + | Care Wafer Mounter Name | Role | Phone | + +------+ + PCP | Unavailable | + +------+ + Encounter Details +--------+ + + + + | Date | Type | Department | Care Team | Description | +--------+ + + + + | 01/24/ | Hospital | [facility] | Conversion | Pain | | 2014 | Encounter | CONVERSION DEP [address] | Transaction, | | | | | [address] | Provider Unknown | | | | | KATHRIN ASIF | [phone] | | | | | [address] | | | | | | [phone] | | | +--------+ + + + [...] | + +--------+ + + + | MRI LUMBAR SPINE WO | Routin | 11/04/2010 | | Results for this | | CONTRAST | e | 12:54 AM | | procedure are in the | | | | PST | | results section. | + +--------+ + + + documented in this encounter Results MRI Lumbar Spine wo Contrast (11/04/2010 12:54 AM PST) + + | Specimen | + + | | + + + + + | Narrative | Performed At | + + + | This is a non-reportable procedure without a radiologist report and | | | is used for image storage only | | + + + + + | Procedure Note | + + | Aleksander Torres Cami - 04/26/2019 11:57 AM PDT This is a non-reportable procedure | | without a radiologist report and isused for image storage only | + + documented in this encounter Visit Diagnoses + + | Diagnosis | + + | Pain Generalized pain | + + documented in this encounter"
--- OUTSIDE RECORDS SUMMARY | ~2020-05-22 | XMS | Encounter Summary ---
Demographics + + + | Address | [address] | | | [place] [address] | + + + | Home Phone | | + + + | Preferred Language | Unknown | + + + | Marital Status | | + + + | Christianity Affiliation | 1028 | + + + | Race | White | + + + | Ethnic Group | Not or | + + + Author + + + | Author | [facility] | | | and [place] | + + + | Organization | [facility] | | | [...] Team Providers + +------+ + | Care Case Packer And Sealer Name | Role | Phone | + +------+ + | Ethan Solomon MD | PCP | | + +------+ + Encounter Details +--------+ + + + + | Date | Type | Department | Care Team | Description | +--------+ + + + + | 08/15/ | Orders Only | [facility] | Sarkis Garcia DNP | | | 2017 | | VASCULAR SURGERY | [address] | | | | | [address] | [place], [place] | | | | | [address] | [id number] | | | | | [place], [place] | | | | | | [address] | | | | | | [phone] | | | +--------+ + + + [...] + +--------+ + + + | VAS CAROTID DUPLEX | Routin | 08/15/2018 | | Results for this | | BILATERAL | e | 3:24 PM | | procedure are in the | | | | PST | | results section. | + +--------+ + + + documented in this encounter Results VAS Carotid Duplex Bilateral (08/15/2018 3:24 PM PST) + + | Specimen | + + | | + + + + + | Impressions | Performed At | + + + | 1. Right ICA: Grade 2 (<50%). 2. Left ICA: Grade 2 (<50%). 3. | | | The vertebral arteries demonstrate normal antegrade flow and | | | velocities bilaterally. | | + + + + + + | Narrative | Performed At | + + + | MELLISA CARRIZALES US CAROTID DOPPLER, BILATERAL 08/15/2018 3:24 PM | | | HISTORY: 83 years. Female. Carotid disease TECHNIQUE: | | | Imaging was performed with a linear array transducer. A duplex exam | | | was performed including grayscale, color flow and pulsed wave spectral | | | Doppler techniques. COMPARISON: None. FINDINGS: RIGHT SIDE: | | | Mild calcified plaque at the right carotid bifurcation proximal | | | internal carotid artery. CCA-PROX PSV: 62.5 (cm/s) CCA-DIST | | | PSV: 52.6 (cm/s) ICA-PROX PSV: 48.2 (cm/s) ICA-MID | | | PSV: 62.5 (cm/s) ICA-DIST PSV: 68 (cm/s) ECA-PROX | | | PSV:68 (cm/s) VERTEBRAL PSV: 15(cm/s) RATIO ICA/CCA: PSV: 0.9 | | | VERTEBRAL FLOW:antegrade flow LEFT SIDE: Mild heterogeneous | | | calcified plaque at the left proximal internal carotid artery. | | | CCA-PROX PSV: 82 (cm/s) CCA-DIST PSV: 50.3 (cm/s) | | | ICA-PROX PSV: 45 (cm/s) ICA-MID PSV: 44.2 (cm/s) | | | ICA-DIST PSV: 76.8 (cm/s) ECA-PROX PSV: 85 (cm/s) | | | VERTEBRAL PSV: 87(cm/s) RATIO ICA/CCA: PSV:0.9 VERTEBRAL | | | FLOW:antegrade flow GRADING SYSTEM: Grade 1: Normal PSV <125 | | | cm/s (No visible plaque or intimal thickening) Grade 2: <50% PSV | | | <125 cm/s (Visible plaque or intimal thickening) Grade 3: 50-69% | | | PSV >125 cm/s (Visible plaque) Grade 4: > or =70% to near occlusion | | | PSV >230 cm/s (Visible plaque) Grade 5: Near Occlusion (Markedly | | | narrowed lumen at color Doppler US) Grade 6: Total Occlusion (No | | | detectable patent lumen at rucker-scale US and no flow at spectral, | | | power, and color Doppler US) validated velocity measurements with | | | angiographic measurements, velocity criteria are extrapolated from | | | diameter data as defined by the Society of Radiologists in Ultrasound | | | Consensus Conference Radiology 2003; 229; 340-346. | | + + + + + | Procedure Note | + + | Brian, Rad Conversion - 05/02/2019 3:44 PM PDT MELLISA HERNANDEZ CAROTID DOPPLER, | | AEPNPBFGY65/5/2018 3:24 PM HISTORY:83 years. Female. Carotid disease TECHNIQUE:Imaging | | was performed with a linear array transducer. A duplex exam was performed including | | grayscale, color flow and pulsed wave spectral Doppler techniques. COMPARISON:None. | | FINDINGS:RIGHT SIDE:Mild calcified plaque at the right carotid bifurcation proximal | | internal carotid artery. CCA-PROX PSV: 62.5 (cm/s)CCA-DIST PSV: 52.6 | | (cm/s)ICA-PROX PSV: 48.2 (cm/s)ICA-MID PSV: 62.5 (cm/s)ICA-DIST PSV: 68 | | (cm/s)ECA-PROX PSV:68 (cm/s)VERTEBRAL PSV: 15(cm/s)RATIO ICA/CCA: PSV: | | 0.9VERTEBRAL FLOW:antegrade flow LEFT SIDE:Mild heterogeneous calcified plaque at the | | left proximal internal carotid artery. CCA-PROX PSV: 82 (cm/s)CCA-DIST PSV: 50.3 | | (cm/s)ICA-PROX PSV: 45 (cm/s)ICA-MID PSV: 44.2 (cm/s)ICA-DIST PSV: 76.8 | | (cm/s)ECA-PROX PSV: 85 (cm/s)VERTEBRAL PSV: 87(cm/s)RATIO ICA/CCA: | | PSV:0.9VERTEBRAL FLOW:antegrade flow GRADING SYSTEM:Grade 1: Normal PSV <125 cm/s (No | | visible plaque or intimal thickening)Grade 2: <50% PSV <125 cm/s (Visible plaque or | | intimal thickening)Grade 3: 50-69% PSV >125 cm/s (Visible plaque)Grade 4: > or =70% to | | near occlusion PSV >230 cm/s (Visible plaque)Grade 5: Near Occlusion (Markedly | | narrowed lumen at color Doppler US)Grade 6: Total Occlusion (No detectable patent lumen | | at rucker-scale US and no flow at spectral, power, and color Doppler US) validated | | velocity measurements with angiographic measurements, velocity criteria are extrapolated | | from diameter data as defined by the Society of Radiologists in Ultrasound Consensus | | Conference Radiology 2003; 229; 340-346. IMPRESSION: 1. Right ICA: Grade 2 (<50%).2. | | Left ICA: Grade 2 (<50%).3. The vertebral arteries demonstrate normal antegrade flow | | and velocities bilaterally. | | PM | |RATIO ICA/CCA: PSV: 0.9 | |VERTEBRAL FLOW:antegrade flow | | | |LEFT SIDE: | |Mild heterogeneous calcified plaque at the left proximal internal carotid artery. | | | |CCA-PROX PSV: 82 (cm/s) | |CCA-DIST PSV: 50.3 (cm/s) | |ICA-PROX PSV: 45 (cm/s) | |ICA-MID PSV: 44.2 (cm/s) | |ICA-DIST PSV: 76.8 (cm/s) | |ECA-PROX PSV: 85 (cm/s) | |VERTEBRAL PSV: 87(cm/s) | |RATIO ICA/CCA: PSV:0.9 | |VERTEBRAL FLOW:antegrade flow | | | |GRADING SYSTEM: | |Grade 1: Normal PSV <125 cm/s (No visible plaque or intimal thickening) | |Grade 2: <50% PSV <125 cm/s (Visible plaque or intimal thickening) | |Grade 3: 50-69% PSV >125 cm/s (Visible plaque) | |Grade 4: > or =70% to near occlusion PSV >230 cm/s (Visible plaque) | |Grade 5: Near Occlusion (Markedly narrowed lumen at color Doppler US) | |Grade 6: Total Occlusion (No detectable patent lumen at rucker-scale US and no flow at spectr al, power, and color Doppler US) | | | |validated velocity measurements with angiographic measurements, velocity criteria are extra polated from diameter data as defined by the Society of Radiologists in Ultrasound Consensus Conference Radiology 2003; 229; 340-346. | | | |IMPRESSION: | |1. Right ICA: Grade 2 (<50%). | |2. Left ICA: Grade 2 (<50%). | |3. The vertebral arteries demonstrate normal antegrade flow and velocities bilaterally. | | | | | + + documented in this encounter Visit Diagnoses Not on filedocumented in this encounter"
--- OUTSIDE RECORDS SUMMARY | ~2020-05-22 | XMS | Encounter Summary ---
Demographics + + + | Address | [address] | | | [place] [address] | + + + | Home Phone | | + + + | Preferred Language | Unknown | + + + | Marital Status | | + + + | Sikhism Affiliation | 1028 | + + + [...] Team Providers + +------+ + | Care Satellite Tv Installer Name | Role | Phone | + +------+ + | Ethan Solomon MD | PCP | | + +------+ + Reason for Visit + +--------+ + | Reason | Onset | Comments | | | Date | | + +--------+ + | Pain Management | 03/05/ | | | | 2017 | | + +--------+ + | Back Pain | 03/05/ | | | | 2017 | | + +--------+ + | Neck Pain | 03/05/ | | | | 2017 | | + +--------+ + Encounter Details +--------+ + + + + | Date | Type | Department | Care Team | Description | +--------+ + + + + | 03/05/ | Telephone | [facility] | Umer Garcia MD | Pain Management; | | 2017 | | NEUROSURGERY [address] | Back Pain; Neck Pain | | | | [address] | [place] [address] | | | | | [place] | [phone] | | | | | [address] | | | | | | [phone] | | | +--------+ + + + [...] this encounter Miscellaneous Notes Telephone Encounter - Katlyn Gómez RN - 03/05/2018 12:01 PM PDTPost op: 12/14/2015 L4-5 Lateral Anterior Interbody Fusion w/ L5-S1 Transforaminal Lumbar Interbody Fu chelsey 04/30/2015 C5-6, C6-7 Anterior Cervical Discectomy Fusion Last seen 07/17/2017 ([place])- ordered cervical spine XR and MRI Imaging reviewed: MRI ([place]) 08/18/2017, "Her MRI does not show any significant stenosis. This is great news"; XR cervical ([place]) 09/26/2017 "The patient's hardware and fusion appeare d to be stable. Thank you" Patient called to request appointment to evaluate the following: Pain on left side of neck (surgery was on the other side); crunches with movement. Onset o f pain possibly a year ago or more; patient called because the pain has persisted; denies ch nino in symptoms or recent increase in symptoms Pain in low back all of the time; has not changed in more than a year. Patient wears back brace with increased pain; daughter reminders her to put it on every time she sees her (carolina pro). Patient acknowledged that nobody told her to continue wearing her lumbar brace; she jus t wears it when her back hurts (that is pretty much all of the time). Advised patient that it is typically not recommended to wear her back brace all of the time as this limits the us e of her muscles and weakens them. For adequate support of her spine, core strength is need ed. Patient agreed to stop using her brace unless needed for specific activities that flare her pain. Doing water aerobics 3 times/ week Taking Tylenol Arthritis PRN, 3 tablets/ dose (650 mg / tablet)- advised patient to read in structions on the label and do not exceed recommended intake r/t risk of hepatotoxicity; enc ouraged patient to discuss medications with PCP for advice on recommended max intake related to comprehensive health profile Gabapentin 600 mg TID Lyrica 150 mg BID (ordered by cottage cheese maker for neuropathy) Not taking any Percocet (for at least 8 months); not taking muscle relaxants Not taking NSAIDs Urine was positive for morphine about 8 months ago, but patient denies ever taking morphine as an outpatient. Pain provider ordered Lyrica and scheduled 3 wk f/u which patient did no t keep because she was angry that Dr. Vila accused her of using morphine. PCP placed referral to another pain clinic in [place], but patient did not want to trave l that far and did not establish care with a new pain specialist Patient denies any falls or injuries since last OV; denies changes in activities Acknowledges recurrent UTI's; intermittent diarrhea/ constipation (PCP evaluation/ treatmen t PRN) Surgeon that repaired artery damaged during left shoulder surgery agreed to refer patient t o the [facility] pain clinic. Patient stated that she has not heard back from them. Encouraged patient to f/u with that provider for status update on referral and with [facility] pain clinic to schedule appointment to establish care. Reinforced the importance of working closely with pain provider and PCP for management of pain and if test results come up diffe rent than expected, work through the process to find out why that is happening. Advised patient with stable symptoms, no changes since last seen and since last imaging, th ere is likely nothing that our providers may do to treat her symptoms. Reminded patient diane t neurosurgery providers only manage pain medications for up to 90 days after surgery. Sarah ent verbalized understanding and agreed to f/u on referral to [facility] pain clinic. Advised patient that this message would be sent to providers as a FYI and if they are able to advise further we will call her back with their advice. documented in this e ncounter Plan of Treatment Not on filedocumented as of this encounter Visit Diagnoses Not on filedocumented in this encounter
--- OUTSIDE RECORDS SUMMARY | ~2020-05-22 | XMS | Encounter Summary ---
Demographics + + + | Address | [address] | | | [place] [address] | + + + | Home Phone | | + + + | Preferred Language | Unknown | + + + | Marital Status | | + + + | Yazidi Affiliation | 1028 | + + + | Race | White | + + + | Ethnic Group | Not or | + + + Author + + + | Author | [facility] | | | and [place] | + + + | Organization | [facility] | | [...] Team Providers + +------+ + | Care Information Security Associate Name | Role | Phone | + +------+ + | Paul Hogan MD | PCP | | + +------+ + Reason for Visit + +--------+ + | Reason | Onset | Comments | | | Date | | + +--------+ + | Medication Refill | 06/10/ | HYDROcodone-acetaminophen (NORCO) 10-325 mg per tablet | | | 2014 | | + +--------+ + Encounter Details +--------+--------+ + + + | Date | Type | Department | Care Team | Description | +--------+--------+ + + + | 06/10/ | Refill | [facility] | Umer Garcia MD | Medication Refill | | 2014 | | NEUROSURGERY [address] | (HYDROcodone-acetami | | | | [address] | [place] [address] | normahen (NORCO) | | | | [place] | [phone] | 10-325 mg per | | | | [address] | | tablet) | | | | [phone] | | | +--------+--------+ + + + Social History + +-------+ [...] this encounter Miscellaneous Notes Telephone Encounter - Shirley Shell - 06/10/2015 4:13 PM PDTRx sent via Certified Marlyn l# [phone]. Mellisa is updated at this time. 4 :14 PM PDTTelephone Encounter - Shirley Shell - 06/10/2015 2:04 PM PDTMedication Refil l Request Procedure: C5-7 ACDF Date of Surgery: 04/30/15 Medication requested: Hydrocodone 10/325 mg Current intake: 1 tab po every 4 hours prn pain Date of last refill: 05/01/15 # of tabs left/or when will patient run out of this medication: She is completely out of th e medication Where is pain located?: Pain is primarily in her low back, bilateral. Does not radiate in to her buttock, legs. Type of pain (constant, intermittent, sharp, dull)?: Describes this as "plain hurting", co nstant. Send in the mail or call in to preferred pharmacy? Please send in the mail. Address is ve rified at this time. elephone Encounter - Dom Bach - 06/10/2015 10:25 AM PDTPatient is calling for a refill of: HYDROcodone- acetaminophen (NORCO) 10-325 mg per tablet. Patient states that she is completely out of thi s medication and has been for a couple of days. Due to patient living in [place], she woul d like her Rx to be mailed to her. I verified her mailing address. Please call patient at once this has been approved. Thank you. documented in this encounter Plan of Treatment Not on filedocumented as of this encounter Visit Diagnoses + + | Diagnosis | + + | S/P cervical spinal fusion - Primary Arthrodesis status | + + documented in this encounter
--- OUTSIDE RECORDS SUMMARY | ~2020-05-22 | XMS | Encounter Summary ---
Demographics + + + | Address | [address] | | | [place] [address] | + + + | Home Phone | | + + + | Preferred Language | Unknown | + + + | Marital Status | | + + + | Scientologist Affiliation | 1028 | + + + | Race | White | + + + | Ethnic Group | Not or | + + + Author + + + | Author | [facility] | | | and [place] | + + + | Organization | [facility] | | | [...] Team Providers + +------+ + | Care Hand Profiler Name | Role | Phone | + +------+ + | Paul Hogan MD | PCP | | + +------+ + Reason for Visit +---------+--------+ + | Reason | Onset | Comments | | | Date | | +---------+--------+ + | Post Op | 12/27/ | | | | 2015 | | +---------+--------+ + Encounter Details +--------+ + + + + | Date | Type | Department | Care Team | Description | +--------+ + + + + | 12/27/ | Telephone | [facility] [place] | Umer Garcia MD | Post Op | | 2016 | | NEUROSURGERY [address] | | | | | [address] | [place] [address] | | | | | [place] | [phone] | | | | | [address] | | | | | | [phone] | | | +--------+ + + + [...] this encounter Miscellaneous Notes Telephone Encounter - Thais Stephenson RN - 12/28/2015 4:15 PM PDTProcedure: L4-5 Lateral Anterior Interbody Fusion w/ L5-S1 Transforaminal Lumbar Interbody Fusion Date of Surgery: 12/14/15 1. How are you feeling-if pain where (legs/surgical site)? Yes, a pain level of 3 around t he incision in the low back region. 2. Weakness/Numbness (New onset)? No 3.Taking pain meds (Name/Dosage)? Oxycodone 5mg: patient taking between 6-8 tablets a day. 4.Loss of Bowel or Bladder (When/Chronic)? Patient states that ever since surgery, "Sometim es I don't make it to the pot, on very rare occasion" Constipation? No 5.Ambulating (How often)? Ambulating without difficulty and getting up every 45 minutes--1 hour. SURGICAL ISSUES 1.Steri-strips/outer bandages have been removed. [place]/sutures that need to be removed n o. Operative note reviewed yes. 2.Appearance of the site? "It looks really good; very smooth looking and feeling." Is th ere drainage from the site? no. If yes, What does it look like? N/A . 3.Do you have a fever? no. If yes, most recent temperature: N/A. 4.Follow up appointments? 01/19/16 at [address]; 04/14/[address] Garcia Staple/suture removal nurse visit? N/A 5.What could we have done to make your visit better? Nothing. 6. Has preoperative pain improved? Yes it has. "I don't have pain like I used to have." FYI: Patient reports, "Overall, I'm feeling really good. Except my legs are swollen really bad a nd my feet swell." After instructing patient to call PCP, patient called back to inform us that she has contacted her PCP, and states that she has be en advised to elevate her lower extremities and take her diuretics to help decrease the swel ling. S/S of DVT were discussed with patient and informed patient to go to urgent care/ER if her conditions worsen/emergent. Patient verbalized understanding. documente d in this encounter Plan of Treatment Not on filedocumented as of this encounter Visit Diagnoses Not on filedocumented in this encounter
--- OUTSIDE RECORDS SUMMARY | ~2020-05-22 | XMS | Encounter Summary ---
Demographics + + + | Address | [address] | | | [place] [address] | + + + | Home Phone | | + + + | Preferred Language | Unknown | + + + | Marital Status | | + + + | Gnosticism Affiliation | [id number] | + + + | Race | White | + + + | Ethnic Group | Not or | + + + Author + + + | Author | [facility] | | | and [place] | + + + | Organization | [facility] | | | and [place] | + + + | Address | Unknown | + + + | Phone | Unavailable | + + + Support + + +---------+ + | Name | Relationship | Address | Phone | + + +---------+ + | Leandro Solomondavid | ECON | Unknown | | + + +---------+ + Care Team Providers + +------+ + | Care Animal Husbandry Manager Name | Role | Phone | + +------+ + | Ethan Solomon MD | PCP | | + +------+ + Reason for Visit + + + | Reason | Comments | + + + | Chest Pain | | + + + Encounter Details +--------+ + + + + | Date | Type | Department | Care Team | Description | +--------+ + + + + | 06/21/ | Emergency | [facility] | Mehran Mckeon, | Chest pain in adult | | 2019 | | [facility] | MD [address] | (Primary Dx); | | | | CENTER [address] | [place], [place] | Elevated blood | | | | [place], [place] | [address] | pressure reading; | | | | [phone] | | Chronic left hip | | | | [phone] | | pain; Weakness | | | | | | generalized | +--------+ + + + + Social [...] + + + | Blood Pressure | 134/52 | 06/21/2019 6:00 PM | | | | | PDT | | + + + + + | Pulse | 73 | 06/21/2019 6:15 PM | | | [...] + | Oxygen Saturation | 98% | 06/21/2019 6:15 PM | | | | | PDT | | + + + + + | Inhaled Oxygen | - | - | | | Concentration | | | | + + + + + | Weight | 66.7 kg (147 lb) | 06/21/2019 2:26 PM | | | | | PDT | | + + + + + | Height | 165.1 cm (5' 5") | 06/21/2019 2:26 PM | | | | | PDT | | + + + + + | Body Mass Index | 24.46 | 06/21/2019 2:26 PM | | | [...] + documented as of this encounter Discharge Instructions Instructions Mehran Mckeon MD - 06/21/2019Please return for any new concerns. Please return if you have any chest pain or shortness of breath. Your CT scan of your chest that w as ordered to ensure there are no blood clots. There are no blood clots in your lungs and y our EKG looks very similar to previous EKGs you have had before in the past. Please return should you have any new concerns. AttachmentsThe following attachments cannot be sent through Care Everywhere.Weakness (Uncer tain Cause) (Namibian)Chest Pain, Uncertain Cause (Namibian)documented in this encounter Medications at Time of Discharge [...] +---------+ + + | furosemide (LASIX) | TK 1 T PO QD | | 4 | 02/26/20 | | | 20 mg tablet | | | | 19 | | + + + +---------+ + + | gabapentin | Take 300 mg by mouth | | 0 | 05/25/20 | | | (NEURONTIN) 300 mg | 2 times daily. | | | 12 | | | capsule | | | | | | + + + +---------+ + + | losartan (COZAAR) | | | 0 | 10/23/19 | | | 50 mg tablet | | | | 19 | | + + + +---------+ + + | PARoxetine (PAXIL) | TK 1 T PO QAM | | 4 | 10/11/19 | | | 40 MG tablet | | | | 19 | | + + + +---------+ + + | escitalopram | | | 0 | 04/23/20 | | | (LEXAPRO) 10 mg | | | | 19 | 0 | | tablet | | | | | | + + + +---------+ + + | melatonin 5 mg | Take 10 mg by mouth | | 0 | | | | tablet | nightly. | | | | 0 | + + + +---------+ + + documented as of this encounter ED Notes Juana Roberson RN - 06/21/2019 6:26 PM PDTDischarged in stable condition per MD order. Pt received discharge instructions and performed verbal repeatback for RN to indicate full u nderstanding. All questions answered. Pt alert/oriented, ambulatory with steady gait, breath ing unlabored on room air, and skin pink/warm/dry. No additional needs noted. Mehran Kang MD - 06/21/2019 2:31 PM PDT [facility] Mellisa Carrizales Emergency Department Encounter Note [address] [place] [address] PCP:Ethan Solomon MD [phone] DIAGNOSIS: ICD-10-CM ICD-9-CM 1. Chest pain in adult R07.9 786.50 2. Elevated blood pressure reading R03.0 796.2 3. Chronic left hip pain M25.552 719.45 G89.29 338.29 4. Weakness generalized R53.1 780.79 CHIEF COMPLAINT: Chief Complaint Patient presents with Chest Pain ED Room: ED01/ED01 HPI Mellisa Carrizales is a 84 y.o. female who presents to the Emergency Department she has had neha oing symptoms repeats is been going on for many weeks. Reportedly had an episode where she was seen and evaluated at the local hospital in [facility]. Was seen and evaluated an d disposition home. Subsequent to that was seen and evaluated at an urgent care center k[facility] suggs she was seen and evaluated for very similar complaint of this chest discomfort. And this was prior to her having a scheduled hip replacement surgical intervention. The surgical int ervention was canceled with her recent episodes of chest pain with referral to cardiology in the next couple weeks. She presents today with her son after an evaluation in the local [facility] for similar evaluation. First troponin was negative EKG is otherwise unremarkable and seems to be unchanged in comparison to previous EKG from June 11, 2019 with no eviden ce of any acute ischemic changes. She is transported here with her son for further treatmen t and care and evaluation. She does have a history of deep venous thrombosis without any ev idence of pulmonary embolus. She is had multiple spine surgeries as well as hysterectomy an d appendectomy. No changes in her bladder or bowel habits are reported. She reports that s he is had decreased activity which is endorsed by her son. Reports that they required using a walker at home due to her weakness and difficulty. It sounds like there is a significant progression in her left hip with degenerative disease within the hip which may be hampering and adversely affecting her ambulation and mobility. PAST MEDICAL & SURGICAL HISTORY The patient has a past medical history of Allergic rhinitis, cause unspecified, Anxiety, Ba ck pain, Bursitis of hip, Claustrophobia, DDD (degenerative disc disease), Depression, DVT o f leg (deep venous thrombosis) (HCC), Full dentures, Gastric reflux, Hyperlipidemia, Hyperte nsion, Hypothyroid, Migraine, Neuropathy, Neuropathy of both feet, Osteoarthritis, Periphera l vascular disease (HCC), Poor circulation, Seasonal allergies, Sleep apnea, and Sleep apnea . The patient has a past surgical history that includes Hysterectomy; bladder repair; Shoul gayatri arthroscopy (Bilateral); Cervical spine surgery (N/A, 04/30/2015); back surgery (Right); Foot surgery; Tonsillectomy and adenoidectomy; Lumbar spine surgery (Left, 12/14/2015); should er surgery (Left, 01/03/2017); Hysterectomy; hiatal hernia repair; Appendectomy; other surgi cassi history (Left, 01/03/2017); and shoulder surgery (Left, 01/03/2017). 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 escitalopram (LEXAPRO) 10 mg tablet furosemide (LASIX) 20 mg tablet TK 1 T PO QD gabapentin (NEURONTIN) 300 mg capsule Take 300 mg by mouth 2 times daily. (Patient sophia ng differently: Take 600 mg by mouth 3 times daily.) losartan (COZAAR) 50 mg tablet melatonin 5 mg tablet Take 10 mg by mouth nightly. PARoxetine (PAXIL) 40 MG tablet TK 1 T PO QAM ALLERGIES Allergies Allergen Reactions Codeine Sulfate Nausea And Vomiting Penicillin V Potassium Swelling FAMILY AND SOCIAL HISTORY The patient's family history includes Arthritis in an other family member; Cancer in her br other, father, and mother; Heart attack in her paternal grandfather; Hypertension in an othe r family member; Kidney disease in her brother. The patient reports that she has never smoke d. She has never used smokeless tobacco. She reports that she drinks about 0.6 oz of alcohol per week. She reports that she does not use drugs. REVIEW OF SYSTEMS As in history of present illness. A 10 system review was otherwise negative. PHYSICAL EXAM VITAL SIGNS: (first vital signs):Temp: 36 C (96.8 F) Pulse: 74 Resp: 18 SpO2: 98 % BP: 125/65 Body mass index is 24.46 kg/m. General: Alert, no active distress and not requiring any emergent interventions Eyes: Normal inspection, pupils equal and round, non-icteric sclera ENT: Ears normal Nose normal Pharynx normal Neck: Normal inspection Supple Full ROM Cardiovascular: Normal rate and rhythm, no extra sounds No murmurs rubs or gallops Focal PMI Respiratory: No respiratory distress or wheezing Normal excursion No retractions Abdomen: Soft, non-tender, non-distended Normal active bowel sounds Back: Normal inspection Without tenderness or deformity Skin: Color normal Warm and dry Extremities: JOSÉ with equal pulses in the upper and lower extremities bilaterally Neuro: No gross motor/sensory deficit GCS 15 No cerebellar deficits Alert and oriented to person, place, time and situation. EKG 14: 35 Normal sinus rhythm at 75 Normal OH and JS LAD with IRBBB with voltage criteria for LVH Normal QT and QTc Normal ST/T without acute ischemic changes NO acute ischemic changes are noted in comparison to an EKG from EKG obtained earlier today at 1315 she is a normal sinus rhythm at 70 with essentially unchanged EKG with some positio nal changes noted in the V2 and V3 but otherwise no acute ischemic changes. In comparison t o an EKG from June 11, 2019 it is essentially unchanged with a rate of 88 where today's ve ntricular rates have been 78 and 75 and otherwise there are no acute ischemic changes that a re noted in the frontal leads and possibly some position changes in the lateral leads. No a cute ischemic changes noted this is not consistent with acute ST elevation CT. There is no acute ischemic changes noted, Interpreted by Mehran Mckeon DO. 17:29 Sinus rhythm at 73 bpm with a PVC. Normal OH and JS Ataxic deviation with LVH by voltage criteria with an incomplete right bundle branch block morphology. Normal QT and QTc Normal ST/T without acute ischemic changes Heart rate is 73 bpm and other than rate I do not see any acute ischemic changes in compari son to the previous electrocardiograms obtained today. Interpreted by Mehran Mckeon DO. LABS Results for orders placed or performed during the hospital encounter of 06/21/19 CBC with Differential Result Value Ref Range WBC 8.8 4.0 - 11.0 K/uL RBC 3.40 (L) 3.70 - 5.20 M/uL Hemoglobin 10.8 (L) 11.5 - 16.0 g/dL Hematocrit 31.5 (L) 34.0 - 47.0 % MCV 92.6 83.0 - 101.0 fL MCH 31.8 28.0 - 35.0 pg MCHC 34.3 32.0 - 36.0 g/dL RDW-CV 14.4 <15.0 % RDW-SD 49.1 (H) 35.1 - 46.3 fL Platelet Count 365 140 - 440 K/uL MPV 9.2 6.5 - 12.4 fL % nRBC 0 0 - 2 per 100 WBCs Absolute nRBC 0.00 0.00 - 0.01 K/uL Comprehensive Metabolic Panel Result Value Ref Range Na 134 (L) 136 - 145 mmol/L K 3.9 3.4 - 5.1 mmol/L Cl 100 98 - 107 mmol/L CO2 26 20 - 31 mmol/L Anion Gap 8 3 - 16 mmol/L Glucose 128 (H) 60 - 106 mg/dL BUN 13 9 - 23 mg/dL Creatinine 0.62 0.55 - 1.02 mg/dL eGFR if not >60 >=60 mL/min/1.73m2 Calcium 9.5 8.7 - 10.4 mg/dL Albumin 4.1 3.2 - 4.8 g/dL Bilirubin Total 0.2 (L) 0.3 - 1.2 mg/dL Total Protein 6.7 5.7 - 8.2 g/dL AST 44 (H) 0 - 34 U/L ALT 27 10 - 49 U/L Alkaline Phosphatase 75 46 - 116 U/L Globulin 2.6 2.1 - 3.8 g/dL Albumin/Globulin Ratio 1.6 0.8 - 1.9 BUN/Creatinine Ratio 21.0 Troponin I Result Value Ref Range Troponin I 0.01 <0.06 ng/mL Differential, Manual Result Value Ref Range % Segmented Neutrophils 71.0 (H) 50.0 - 70.0 % % Lymphocytes 11.0 (L) 20.0 - 40.0 % % Monocytes 7.0 (H) 1.0 - 6.0 % % Eosinophils 1.0 1.0 - 5.0 % % Bands 7.0 (H) 0.0 - 5.0 % % Metamyelocytes 1.0 (H) <0.0 % % Myelocytes 1.0 (H) <0.0 % % Reactive Lymphocytes 1.0 (H) <0.0 % Absolute Segmented Neutrophils 6.25 1.80 - 7.70 K/uL Absolute Lymphocytes 0.97 (L) 1.00 - 3.40 K/uL Absolute Monocytes 0.62 0.00 - 0.80 K/uL Absolute Eosinophils 0.09 0.00 - 0.50 K/uL Absolute Bands 0.62 0.00 - 1.50 K/uL Absolute Metamyelocytes 0.09 K/uL Absolute Myelocytes 0.09 K/uL Absolute Reactive Lymphocytes 0.09 K/uL Total Counted 100 RBC Morphology Normal WBC Morphology Normal Platelet Estimate Adequate Adequate Troponin I Result Value Ref Range Troponin I 0.02 <0.06 ng/mL ECG 12 lead Result Value Ref Range VENTRICULAR RATE EKG 75 BPM ATRIAL RATE 75 BPM P-R INTERVAL 182 ms QRS DURATION 106 ms Q-T INTERVAL 406 ms Q-T INTERVAL (CORRECTED) 453 ms P WAVE AXIS 32 degrees QRS AXIS -42 degrees T AXIS -17 degrees INTERPRETATION TEXT Normal sinus rhythm Left axis deviation Minimal voltage criteria for LVH, may be normal variant Nonspecific T wave abnormality Anterior leads Abnormal ECG When compared with ECG of 21-JUN-2019 13:14, Incomplete right bundle branch block is no longer present T wave flattening has replaced T wave inversion in leads V3-4 Confirmed by URI GUTIERREZ MD ([id number]) on 06/22/2019 8:19:48 AM ECG 12 lead Result Value Ref Range VENTRICULAR RATE EKG 73 BPM ATRIAL RATE 73 BPM P-R INTERVAL 222 ms QRS DURATION 108 ms Q-T INTERVAL 432 ms Q-T INTERVAL (CORRECTED) 475 ms P WAVE AXIS 70 degrees QRS AXIS -42 degrees T AXIS -9 degrees INTERPRETATION TEXT Sinus rhythm with 1st degree AV block Left axis deviation Minimal voltage criteria for LVH, may be normal variant Nonspecific T wave abnormality Abnormal ECG When compared with ECG of 21-JUN-2019 14:34, (Unconfirmed) OH interval has increased Confirmed by URI GUTIERREZ MD ([id number]) on 06/22/2019 8:20:50 AM IMAGING STUIDES (X-Rays interpreted by ED Physician) Recent Results (from the past 360 hour(s)) XR Ribs Right w PA Chest Narrative EXAM:XR RIBS RIGHT W PA CHEST CLINICAL HISTORY: History of fall with right anterior chest wall pain. COMPARISON: 04/24/2015 FINDINGS: Frontal view the chest. Dedicated images of the right ribs. No large effusion. No pneumothorax. Mild cardiomegaly. There is a healed left rib deformity. Arthroplasty changes are present in the left shoulder. Fusion related changes in the lower cervical spine. No displaced or angulated right rib fractures. Chronic posttraumatic and degenerative changes in the right acromioclavicular joint. Impression No displaced or angulated right rib fractures. No pleural effusion or pneumothorax. Dictated and Signed by: Abdirashid Sanchez MD Electronically signed: 06/21/2019 2:[address] Angiogram Pulmonary w Contrast Narrative TECHNIQUE: After administration of 65 mL Omnipaque 350 intravenously, axial CT imaging was obtained through the chest with coronal and sagittal reformats. CLINICAL INFORMATION: Shortness of breath PE suspected, intermediate prob, positive D-dimer hypoxia elevated d-dimer COMPARISON: Radiographs obtained same day. Lumbar spine CT 10/18/2018. FINDINGS: DIAGNOSTIC QUALITY: Adequate. BONES: No osteoblastic or osteolytic lesion. No acute osseous abnormality. Chronic T12 superior endplate compression deformity. Cervical spine fusion changes. Left shoulder arthroplasty changes. CHEST: Chest Wall: No supraclavicular or axillary lymphadenopathy. No acute subcutaneous abnormality. Mediastinum and sally: No lymphadenopathy. Leftward shift of the mediastinum. Heart and pericardium: No CT evidence of right heart strain. Heart size is normal. No pericardial effusion. Vessels: No pulmonary artery filling defect. Normal caliber of the thoracic aorta. Coronary artery calcifications are noted. Lungs: Scarring/atelectasis at the inferior lingula with associated volume loss. No airspace consolidation. No significant pulmonary nodule. Large airways: Unremarkable. Pleura: No pleural effusion or pneumothorax. UPPER ABDOMEN: Cholecystectomy changes. Small hiatal hernia. Impression No CT evidence of pulmonary embolism. No acute pulmonary or osseous abnormality. Small hiatal hernia. Dictated and Signed by: Sandeep Coley MD Electronically signed: 06/21/2019 4:56 PM ED COURSE & MEDICAL DECISION MAKING Pertinent Labs & Imaging studies were reviewed along with EMS notes and halfway record s if applicable. (See chart for details) Medications and Allergy list reviewed. Nurses note and old records were reviewed 14:32 The patient was seen and examined, This patient presents with the chief complaint of chest pain. The partial list of possible emergent diagnoses that the patient requires an ev aluation for includes hypercoagulable state, anemia, dehydration, renal failure, electrolyte changes, unstable angina, aortic dissection, acute myocardial ischemia, arrhythmia, congest paz heart failure, pericarditis, effusions, pulmonary edema and anxiety with hyperventilatio n. I have ordered a 12 lead EKG, CXR, CBC with diff, CMP, INR, and troponin. Clinically, I feel that this patient's history is not consistent with an acute cardiac etiology of the ch est pain. Medical Decision Making as of Jun 23 2005MonJun 21, 2019 1533 Patient has a history of recent elevated d-dimer which will require further investigat ion. Once I receive the completed results of the complete metabolic panel I will order a CT angiogram of her chest to exclude PE. 1711 No acute PE 180 Trop remains negative Troponin I: 0.02 14:[address] Solomon's office to further determine the etiology for the rece nt change in her being offered surgical intervention. At present I do not find any acute is chemic changes in the electrocardiogram in comparison to the one performed earlier today and the previous one on June 11. There are some essentially positional changes with the V2 t o V4 and the T waves and progression but no acute ischemic changes noted. 17:30 I did not receive a return call from Dr. Solomon's office regarding etiology for the patient's change in plans regarding surgical intervention. I recommend outpatient follow-u p with a primary care provider to further determine the next most reasonable course of care. I have discussed my clinical impression and treatment plan with the pt. We have specificall y discussed the signs and symptoms that would constitute the need for an immediate return to the ED, the importance of continued outpatient f/u and the importance of compliance with th e d/c instructions. I have answered any questions that the pt has to the best of my ability. Based upon the pt s history, physical exam, ED course, and diagnostic studies, I feel diane t there is no current emergent medical condition that warrants admission, transfer, or furth er ED treatment at this time. Last Set of Vital Signs: Temp: 36 C (96.8 F) Pulse: 73 Resp: 12 SpO2: 98 % BP: 134/52 Medications sodium chloride 0.9% (NS) bolus 40 mL (40 mLs Intravenous Push 06/21/19 1620) iohexol (OMNIPAQUE 350) 350 mg/mL injection 65 mL (65 mLs Intravenous Given 06/21/19 1620) Vitals: 06/21/19 1425 06/21/19 1426 BP: 125/65 Pulse: 74 Resp: 18 Temp: 36 C (96.8 F) TempSrc: Oral SpO2: 98% Weight: 66.7 kg (147 lb) 66.7 kg (147 lb) Height: 1.651 m (5' 5") 1.651 m (5' 5") FINAL IMPRESSION ICD-10-CM ICD-9-CM 1. Chest pain in adult R07.9 786.50 2. Elevated blood pressure reading R03.0 796.2 3. Chronic left hip pain M25.552 719.45 G89.29 338.29 4. Weakness generalized R53.1 780.79 Follow-up Information Ethan Solomon MD. Specialty: Internal Medicine Why: Please call today to arrange follow-up in the next 3-5 days for your ED visit Contact information: [address] [place] [id number] [facility]. Specialty: Emergency Medicine Why: As needed Contact information: [address] [facility] [address] Jemal Park MD. Specialty: Cardiology Why: Please call Monday to arrange follow-up for your recent episodes of chest pain Contact information: [address] [facility] [address] Discharge Medication List as of 06/21/2019 18:17 Mehran Mckeon. This document has been prepared with a voice recognition system. The possibility of "sound alike" carriage rider errors, addition and/or deletions may occur. If there is any question p lease contact the author of the document. Mehran Mckeon MD 06/23/192004 Aminata Nava RN - 06/21/2019 2:27 PM PDTPt presents with chest pain for two weeks or more. Sts that S ludwinJulio Pulliam's informed her that she has an infection in her right breast area. Went to urgent care today, noticed T wave inversions on EKG and was given 324mg of ASA. Pt sts that she is hungry and her chest pain is ok. Sts that she has deep inspirations that relieve her pain a nd movements make it worse. documented in this encounter Plan of Treatment Not on filedocumented as of this encounter Procedures + +--------+ + + + | Procedure Name | Priori | Date/Time | Associated Diagnosis | Comments | | | ty | | | | + +--------+ + + + | TROPONIN I | STAT | 06/21/2019 | | Results for this | | | | 5:31 PM | | procedure are in the | | | | PDT | | results section. | + +--------+ + + + | ECG 12 LEAD | STAT | 06/21/2019 | | Results for this | | | | 5:27 PM | | procedure are in the | | | | PDT | | results section. | + +--------+ + + + | CT ANGIOGRAM | STAT | 06/21/2019 | | Results for this | | PULMONARY | | 4:18 PM | | procedure are in the | | | | PDT | | results section. | + +--------+ + + + | TROPONIN I | STAT | 06/21/2019 | | Results for this | | | | 3:03 PM | | procedure are in the | | | | PDT | | results section. | + +--------+ + + + | DIFFERENTIAL, MANUAL | Routin | 06/21/2019 | | Results for this | | | e | 3:03 PM | | procedure are in the | | | | PDT | | results section. | + +--------+ + + + | CBC WITH | STAT | 06/21/2019 | | Results for this | | DIFFERENTIAL | | 3:03 PM | | procedure are in the | | | | PDT | | results section. | + +--------+ + + + | COMPREHENSIVE | STAT | 06/21/2019 | | Results for this | | METABOLIC PANEL | | 3:03 PM | | procedure are in the | | | | PDT | | results section. | + +--------+ + + + | ECG 12 LEAD | STAT | 06/21/2019 | | Results for this | | | | 2:34 PM | | procedure are in the | | | | PDT | | results section. | + +--------+ + + + | ECG - EXTERNAL SCAN | | 06/11/2019 | | Results for this | | | | 12:00 AM | | procedure are in the | | | | PDT | | results section. | + +--------+ + + + documented in this encounter Results Troponin I (06/21/2019 5:31 PM PDT) + + + + + + | Component | Value | Ref Range | Performed | Pathologist | | | | | At | Signature | + + + + + + | Troponin I | 0.02Comment: | <0.06 ng/mL | [facility] | | | | Comment:Reference | | [facility] | | | | Ranges: 0.00-0.06 = | | MEDICAL | | | | NORMAL >0.06 = | | CENTER - | | | | SUSPICIOUS FOR | | LABORATORY | | | | MYOCARDIAL DAMAGE NOTE: | | | | | | Values greater than | | | | | | 0.78 ng/mL have been | | | | | | shown to be strongly | | | | | | associated with acute | | | | | | myocardial infarction. | | | | | | The [employer] | | | | | | Cardiology (ACC) | | | | | | recommends a decision | | | | | | limit of 0.06 ng/mL for | | | | | | this assay. Results | | | | | | greater than 0.06 can | | | | | | reflect a pre-infarct | | | | | | acute coronary syndrome, | | | | | | but can also reflect | | | | | | myocardial necrosis or | | | | | | injury that is not due | | | | | | to coronary artery | | | | | | disease. Some of these | | | | | | causes are sepsis, | | | | | | hypocolemia, atrial | | | | | | fibrillation, heart | | | | | | failure, pulmonary | | | | | | embolism, myocarditis, | | | | | | myocardial contusion, | | | | | | and renal failure. The | | | | | | diagnosis of myocardial | | | | | | infarction should be | | | | | | based on a combination | | | | | | of the patient's | | | | | | clinical presentation | | | | | | and the clinical | | | | | | laboratory test results | | | | | | (especially serial | | | | | | troponin levels). | | | | + + + + + + + + | Specimen | + + | Blood | + + + + + + + | Performing | Address | City/State/Zipcode | Phone Number | | Organization | | | | + + + + + | [facility] | [address] | [place] | [phone] | | [facility] | | [id number] | | | - LABORATORY | | | | + + + + + ECG 12 lead (06/21/2019 5:27 PM PDT) + + + + + + | Component | Value | Ref Range | Performed | Pathologist | | | | | At | Signature | + + + + + + | VENTRICULAR | 73 | BPM | [facility] | | | RATE EKG | | | | | + + + + + + | ATRIAL RATE | 73 | BPM | [facility] | | + + + + + + | P-R | 222 | ms | [facility] | | | INTERVAL | | | | | + + + + + + | QRS | 108 | ms | [facility] | | | DURATION | | | | | + + + + + + | Q-T | 432 | ms | [facility] | | | INTERVAL | | | | | + + + + + + | Q-T | 475 | ms | [facility] | | | INTERVAL | | | | | | (CORRECTED) | | | | | + + + + + + | P WAVE AXIS | 70 | degrees | [facility] | | + + + + + + | QRS AXIS | -42 | degrees | [facility] | | + + + + + + | T AXIS | -9 | degrees | [facility] | | + + + + + + | INTERPRETAT | Sinus rhythm with 1st | | [facility] | | | ION TEXT | degree AV blockLeft axis | | | | | | deviationMinimal | | | | | | voltage criteria for | | | | | | LVH, may be normal | | | | | | variantNonspecific T | | | | | | wave abnormalityAbnormal | | | | | | ECGWhen compared with | | | | | | ECG of 21-JUN-2019 | | | | | | 14:34, (Unconfirmed)OH | | | | | | interval has | | | | | | increasedConfirmed by | | | | | | URI GUTIERREZ MD ([id number]) | | | | | | on 06/22/2019 8:20:50 AM | | | | | | [...] | | | + +---------+ + + CT Angiogram Pulmonary w Contrast (06/21/2019 4:18 PM PDT) + + | Specimen | + + | | + + + + + | Impressions | Performed At | + + + | No CT evidence of pulmonary embolism. No acute pulmonary or | [facility] | | osseous abnormality. Small hiatal hernia. Dictated and Signed | | | by: Sandeep Coley MD Electronically signed: 06/21/2019 4:56 PM | | | | | + + + + + + | Narrative | Performed At | + + + | TECHNIQUE: After administration of 65 mL Omnipaque 350 | [facility] | | intravenously, axial CT imaging was obtained through the chest with | | | coronal and sagittal reformats. CLINICAL INFORMATION: Shortness of | | | breath PE suspected, intermediate prob, positive D-dimer hypoxia | | | elevated d-dimer COMPARISON: Radiographs obtained same day. Lumbar | | | spine CT 10/18/2018. FINDINGS: DIAGNOSTIC QUALITY: Adequate. | | | BONES: No osteoblastic or osteolytic lesion. No acute osseous | | | abnormality. Chronic T12 superior endplate compression deformity. | | | Cervical spine fusion changes. Left shoulder arthroplasty changes. | | | CHEST: Chest Wall: No supraclavicular or axillary lymphadenopathy. | | | No acute subcutaneous abnormality. Mediastinum and sally: No | | | lymphadenopathy. Leftward shift of the mediastinum. Heart and | | | pericardium: No CT evidence of right heart strain. Heart size is | | | normal. No pericardial effusion. Vessels: No pulmonary artery | | | filling defect. Normal caliber of the thoracic aorta. Coronary artery | | | calcifications are noted. Lungs: Scarring/atelectasis at the | | | inferior lingula with associated volume loss. No airspace | | | consolidation. No significant pulmonary nodule. Large airways: | | | Unremarkable. Pleura: No pleural effusion or pneumothorax. UPPER | | | ABDOMEN: Cholecystectomy changes. Small hiatal hernia. | | + + + + + | Procedure Note | + + | Brian, Rad Results In - 06/21/2019 4:59 PM PDT TECHNIQUE: After administration of 65 | | mL Omnipaque 350 intravenously, axial CTimaging was obtained through the chest with | | coronal and sagittal reformats.CLINICAL INFORMATION: Shortness of breathPE suspected, | | intermediate prob, positive D-dimerhypoxiaelevated d-dimerCOMPARISON: Radiographs | | obtained same day. Lumbar spine CT 10/18/2018.FINDINGS:DIAGNOSTIC QUALITY: Adequate.BONES: | | No osteoblastic or osteolytic lesion. No acute osseous abnormality.Chronic T12 superior | | endplate compression deformity. Cervical spine fusionchanges. Left shoulder | | arthroplasty changes.CHEST:Chest Wall: No supraclavicular or axillary lymphadenopathy. | | No acutesubcutaneous abnormality.Mediastinum and sally: No lymphadenopathy. Leftward | | shift of the mediastinum.Heart and pericardium: No CT evidence of right heart strain. | | Heart size isnormal. No pericardial effusion. Vessels: No pulmonary artery filling | | defect. Normal caliber of the thoracicaorta. Coronary artery calcifications are | | noted.Lungs: Scarring/atelectasis at the inferior lingula with associated volume loss.No | | airspace consolidation. No significant pulmonary nodule.Large airways: | | Unremarkable.Pleura: No pleural effusion or pneumothorax. UPPER ABDOMEN: Cholecystectomy | | changes. Small hiatal hernia.IMPRESSION: No CT evidence of pulmonary embolism.No acute | | pulmonary or osseous abnormality.Small hiatal hernia.Dictated and Signed by: Sandeep | | MD Brijesh Electronically signed: 06/21/2019 4:56 PM | |Chest Wall: No supraclavicular or axillary lymphadenopathy. No acute | |subcutaneous abnormality. | | | |Mediastinum and sally: No lymphadenopathy. Leftward shift of the mediastinum. | |Heart and pericardium: No CT evidence of right heart strain. Heart size is | |normal. No pericardial effusion. | |Vessels: No pulmonary artery filling defect. Normal caliber of the thoracic | |aorta. Coronary artery calcifications are noted. | | | |Lungs: Scarring/atelectasis at the inferior lingula with associated volume loss. | |No airspace consolidation. No significant pulmonary nodule. | |Large airways: Unremarkable. | |Pleura: No pleural effusion or pneumothorax. | | | |UPPER ABDOMEN: Cholecystectomy changes. Small hiatal hernia. | | | | | |IMPRESSION: | | | |No CT evidence of pulmonary embolism. | | | |No acute pulmonary or osseous abnormality. | | | |Small hiatal hernia. | | | |Dictated and Signed by: Sandeep Coley MD | | Electronically signed: 06/21/2019 4:56 PM | + + + +---------+ + + | Performing | Address | City/State/Zipcode | Phone Number | | Organization | | | | + +---------+ + + | [facility] | | | | + +---------+ + + Differential, Manual (06/21/2019 3:03 PM PDT) + + + + + + | Component | Value | Ref Range | Performed | Pathologist | | | | | At | Signature | + + + + + + | % Segmented | 71.0 (H) | 50.0 - 70.0 % | [facility] | | | | | | [facility] | | | Neutrophils | | | MEDICAL | | | | | | CENTER - | | | | | | LABORATORY | | + + + + + + | % | 11.0 (L) | 20.0 - 40.0 % | [facility] | | | Lymphocytes | | | [facility] | | | | | | MEDICAL | | | | | | CENTER - | | | | | | LABORATORY | | + + + + + + | % Monocytes | 7.0 (H) | 1.0 - 6.0 % | [facility] | | | | | | [facility] | | | | | | MEDICAL | | | | | | CENTER - | | | | | | LABORATORY | | + + + + + + | % | 1.0 | 1.0 - 5.0 % | [facility] | | | Eosinophils | | | [facility] | | | | | | MEDICAL | | | | | | CENTER - | | | | | | LABORATORY | | + + + + + + | % Bands | 7.0 (H) | 0.0 - 5.0 % | [facility] | | | | | | [facility] | | | | | | MEDICAL | | | | | | CENTER - | | | | | | LABORATORY | | + + + + + + | % | 1.0 (H) | <0.0 % | [facility] | | | Metamyelocy | | | [facility] | | | joseph | | | MEDICAL | | | | | | CENTER - | | | | | | LABORATORY | | + + + + + + | % | 1.0 (H) | <0.0 % | [facility] | | | Myelocytes | | | [facility] | | | | | | MEDICAL | | | | | | CENTER - | | | | | | LABORATORY | | + + + + + + | % Reactive | 1.0 (H) | <0.0 % | [facility] | | | Lymphocytes | | | [facility] | | | | | | MEDICAL | | | | | | CENTER - | | | | | | LABORATORY | | + + + + + + | Absolute | 6.25 | 1.80 - 7.70 | [facility] | | | Segmented | | K/uL | [facility] | | | Neutrophils | | | MEDICAL | | | | | | CENTER - | | | | | | LABORATORY | | + + + + + + | Absolute | 0.97 (L) | 1.00 - 3.40 | [facility] | | | Lymphocytes | | K/uL | [facility] | | | | | | MEDICAL | | | | | | CENTER - | | | | | | LABORATORY | | + + + + + + | Absolute | 0.62 | 0.00 - 0.80 | [facility] | | | Monocytes | | K/uL | [facility] | | | | | | MEDICAL | | | | | | CENTER - | | | | | | LABORATORY | | + + + + + + | Absolute | 0.09 | 0.00 - 0.50 | [facility] | | | Eosinophils | | K/uL | [facility] | | | | | | MEDICAL | | | | | | CENTER - | | | | | | LABORATORY | | + + + + + + | Absolute | 0.62 | 0.00 - 1.50 | [facility] | | | Bands | | K/uL | [facility] | | | | | | MEDICAL | | | | | | CENTER - | | | | | | LABORATORY | | + + + + + + | Absolute | 0.09 | K/uL | [facility] | | | Metamyelocy | | | [facility] | | | joseph | | | MEDICAL | | | | | | CENTER - | | | | | | LABORATORY | | + + + + + + | Absolute | 0.09 | K/uL | [facility] | | | Myelocytes | | | [facility] | | | | | | MEDICAL | | | | | | CENTER - | | | | | | LABORATORY | | + + + + + + | Absolute | 0.09 | K/uL | [facility] | | | Reactive | | | [facility] | | | Lymphocytes | | | MEDICAL | | | | | | CENTER - | | | | | | LABORATORY | | + + + + + + | Total Cells | 100 | | [facility] | | | Counted | | | [facility] | | | | | | MEDICAL | | | | | | CENTER - | | | | | | LABORATORY | | + + + + + + | RBC | Normal | | [facility] | | | Morphology | | | [facility] | | | | | | MEDICAL | | | | | | CENTER - | | | | | | LABORATORY | | + + + + + + | WBC | Normal | | [facility] | | | Morphology | | | [facility] | | | | | | MEDICAL | | | | | | CENTER - | | | | | | LABORATORY | | + + + + + + | Platelet | Adequate | Adequate | [facility] | | | Estimate | | | [facility] | | [...] + + | [facility] | [address] | [place] | [phone] | | [facility] | | [address] | | | - LABORATORY | | | | + + + + + Troponin I (06/21/2019 3:03 PM PDT) + + + + + + | Component | Value | Ref Range | Performed | Pathologist | | | | | At | Signature | + + + + + + | Troponin I | 0.01Comment: | <0.06 ng/mL | [facility] | | | | Comment:Reference | | [facility] | | | | Ranges: 0.00-0.06 = | | MEDICAL | | | | NORMAL >0.06 = | | CENTER - | | | | SUSPICIOUS FOR | | LABORATORY | | | | MYOCARDIAL DAMAGE NOTE: | | | | | | Values greater than | | | | | | 0.78 ng/mL have been | | | | | | shown to be strongly | | | | | | associated with acute | | | | | | myocardial infarction. | | | | | | The [employer] | | | | | | Cardiology (ACC) | | | | | | recommends a decision | | | | | | limit of 0.06 ng/mL for | | | | | | this assay. Results | | | | | | greater than 0.06 can | | | | | | reflect a pre-infarct | | | | | | acute coronary syndrome, | | | | | | but can also reflect | | | | | | myocardial necrosis or | | | | | | injury that is not due | | | | | | to coronary artery | | | | | | disease. Some of these | | | | | | causes are sepsis, | | | | | | hypocolemia, atrial | | | | | | fibrillation, heart | | | | | | failure, pulmonary | | | | | | embolism, myocarditis, | | | | | | myocardial contusion, | | | | | | and renal failure. The | | | | | | diagnosis of myocardial | | | | | | infarction should be | | | | | | based on a combination | | | | | | of the patient's | | | | | | clinical presentation | | | | | | and the clinical | | | | | | laboratory test results | | | | | | (especially serial | | | | | | troponin levels). | | | | + + + + + + + + | Specimen | + + | Blood | + + + + + + + | Performing | Address | City/State/Zipcode | Phone Number | | Organization | | | | + + + + + | [facility] | [address] | [place] | [phone] | | [facility] | | [address] | | | - LABORATORY | | | | + + + + + Comprehensive Metabolic Panel (06/21/2019 3:03 PM PDT) + + + + + + | Component | Value | Ref Range | Performed | Pathologist | | | | | At | Signature | + + + + + + | Na | 134 (L) | 136 - 145 | [facility] | | | | | mmol/L | [facility] | | | | | | MEDICAL | | | | | | CENTER - | | | | | | LABORATORY | | + + + + + + | K | 3.9 | 3.4 - 5.1 | [facility] | | | | | mmol/L | [facility] | | | | | | MEDICAL | | | | | | CENTER - | | | | | | LABORATORY | | + + + + + + | Cl | 100 | 98 - 107 mmol/L | [facility] | | | | | | [facility] | | | | | | MEDICAL | | | | | | CENTER - | | | | | | LABORATORY | | + + + + + + | CO2 | 26 | 20 - 31 mmol/L | [facility] | | | | | | [facility] | | | | | | [facility] | | | | | | CENTER - | | | | | | LABORATORY | | + + + + + + | Anion Gap | 8 | 3 - 16 mmol/L | [facility] | | | | | | [facility] | | | | | | MEDICAL | | | | | | CENTER - | | | | | | LABORATORY | | + + + + + + | Glucose | 128 (H) | 60 - 106 mg/dL | [facility] | | | | | | [facility] | | | | | | MEDICAL | | | | | | CENTER - | | | | | | LABORATORY | | + + + + + + | BUN | 13 | 9 - 23 mg/dL | [facility] | | | | | | [facility] | | [facility] | [facility] | | | | | | CENTER - | | | | | | LABORATORY | | + + + + + + | Creatinine | 0.62 | 0.55 - 1.02 | [facility] | | | | | mg/dL | [facility] | | | | | | MEDICAL | | | | | | CENTER - | | | | | | LABORATORY | | + + + + + + | eGFR, | >60Comment: GLOMERULAR | >=60 | [facility] | | | non- | FILTRATION | mL/min/1.73m2 | [facility] | | | [place] | RATE,ESTIMATED | | MEDICAL | | | | mL/min/1.33p9Amrv than | | CENTER - | | [...] + + + + | Calcium | 9.5 | 8.7 - 10.4 | [facility] | | | | | mg/dL | [facility] | | | | | | MEDICAL | | | | | | CENTER - | | | | | | LABORATORY | | + + + + + + | Albumin | 4.1 | 3.2 - 4.8 g/dL | [facility] | | | | | | [facility] | | | | | | MEDICAL | | | | | | CENTER - | | | | | | LABORATORY | | + + + + + + | Bilirubin | 0.2 (L) | 0.3 - 1.2 mg/dL | [facility] | | | Total | | | [facility] | | | | | | MEDICAL | | | | | | CENTER - | | | | | | LABORATORY | | + + + + + + | Total | 6.7 | 5.7 - 8.2 g/dL | [facility] | | | Protein | | | [facility] | | | | | | MEDICAL | | | | | | CENTER - | | | | | | LABORATORY | | + + + + + + | AST | 44 (H) | 0 - 34 U/L | [facility] | | | | | | [facility] | | | | | | MEDICAL | | | | | | CENTER - | | | | | | LABORATORY | | + + + + + + | ALT | 27 | 10 - 49 U/L | [facility] | | | | | | [facility] | | | | | | MEDICAL | | | | | | CENTER - | | | | | | LABORATORY | | + + + + + + | Alkaline | 75 | 46 - 116 U/L | [facility] | | | Phosphatase | | | [facility] | | | | | | MEDICAL | | | | | | CENTER - | | | | | | LABORATORY | | + + + + + + | Globulin | 2.6 | 2.1 - 3.8 g/dL | [facility] | | | | | | [facility] | | | | | | MEDICAL | | | | | | CENTER - | | | | | | LABORATORY | | + + + + + + | Albumin/Linsey | 1.6 | 0.8 - 1.9 | [facility] | | | bulin Ratio | | | [facility] | | | | | | MEDICAL | | | | | | CENTER - | | | | | | LABORATORY | | + + + + + + | BUN/Creatin | 21.0 | | [facility] | | | ine Ratio | | | [facility] | | | | | | MEDICAL | | | | | | CENTER - | | | | | | LABORATORY | | + + + + + + + + | Specimen | + + | Blood | + + + + + | Narrative | Performed At | + + + | Sample appears 1+ hemolyzed; some results may be affected by 1+ | [facility] | | hemolysis. | [facility] | | | [facility] CENTER | | | - LABORATORY | + + + + + + + + | Performing | Address | City/State/Zipcode | Phone Number | | Organization | | | | + + + + + | [facility] | [address] | [place] | [phone] | | [facility] | | [address] | | | - LABORATORY | | | | + + + + + CBC with Differential (06/21/2019 3:03 PM PDT) + + + + + + | Component | Value | Ref Range | Performed | Pathologist | | | | | At | Signature | + + + + + + | White Blood | 8.8 | 4.0 - 11.0 K/uL | [facility] | | | Cells | | | [facility] | | | | | | MEDICAL | | | | | | CENTER - | | | | | | LABORATORY | | + + + + + + | Red Blood | 3.40 (L) | 3.70 - 5.20 | [facility] | | | Cells | | M/uL | [facility] | | | | | | MEDICAL | | | | | | CENTER - | | | | | | LABORATORY | | + + + + + + | Hemoglobin | 10.8 (L) | 11.5 - 16.0 | [facility] | | | | | g/dL | [facility] | | | | | | MEDICAL | | | | | | CENTER - | | | | | | LABORATORY | | + + + + + + | Hematocrit | 31.5 (L) | 34.0 - 47.0 % | [facility] | | | | | | [facility] | | | | | | MEDICAL | | | | | | CENTER - | | | | | | LABORATORY | | + + + + + + | MCV | 92.6 | 83.0 - 101.0 fL | [facility] | | | | | | [facility] | | | | | | MEDICAL | | | | | | CENTER - | | | | | | LABORATORY | | + + + + + + | MCH | 31.8 | 28.0 - 35.0 pg | [facility] | | | | | | [facility] | | | | | | MEDICAL | | | | | | CENTER - | | | | | | LABORATORY | | + + + + + + | MCHC | 34.3 | 32.0 - 36.0 | [facility] | | | | | g/dL | [facility] | | | | | | MEDICAL | | | | | | CENTER - | | | | | | LABORATORY | | + + + + + + | RDW-CV | 14.4 | <15.0 % | [facility] | | | | | | [facility] | | | | | | MEDICAL | | | | | | CENTER - | | | | | | LABORATORY | | + + + + + + | RDW-SD | 49.1 (H) | 35.1 - 46.3 fL | [facility] | | | | | | [facility] | | | | | | MEDICAL | | | | | | CENTER - | | | | | | LABORATORY | | + + + + + + | Platelet | 365 | 140 - 440 K/uL | [facility] | | | Count | | | [facility] | | | | | | MEDICAL | | | | | | CENTER - | | | | | | LABORATORY | | + + + + + + | MPV | 9.2 | 6.5 - 12.4 fL | [facility] | | | | | | [facility] | | | | | | MEDICAL | | | | | | CENTER - | | | | | | LABORATORY | | + + + + + + | % nRBC | 0 | 0 - 2 per 100 | [facility] | | | | | WBCs | [facility] | | | | | | MEDICAL | | | | | | CENTER - | | | | | | LABORATORY | | + + + + + + | Absolute | 0.00 | 0.00 - 0.01 | [facility] | | | nRBC | | K/uL | [facility] | [...] | + + + + + | [facility] | [address] | [place] | [phone] | | [facility] | | [address] | | | - LABORATORY | | | | + + + + + ECG 12 lead (06/21/2019 2:34 PM PDT) + + + + + + | Component | Value | Ref Range | Performed | Pathologist | | | | | At | Signature | + + + + + + | VENTRICULAR | 75 | BPM | [facility] | | | RATE EKG | | | | | + + + + + + | ATRIAL RATE | 75 | BPM | [facility] | | + + + + + + | P-R | 182 | ms | [facility] | | | INTERVAL | | | | | + + + + + + | QRS | 106 | ms | [facility] | | | DURATION | | | | | + + + + + + | Q-T | 406 | ms | [facility] | | | INTERVAL | | | | | + + + + + + | Q-T | 453 | ms | [facility] | | | INTERVAL | | | | | | (CORRECTED) | | | | | + + + + + + | P WAVE AXIS | 32 | degrees | [facility] | | + + + + + + | QRS AXIS | -42 | degrees | [facility] | | + + + + + + | T AXIS | -17 | degrees | [facility] | | + + + + + + | INTERPRETAT | Normal sinus rhythmLeft | | [facility] | | | ION TEXT | axis deviationMinimal | | | | | | voltage criteria for | | | | | | LVH, may be normal | | | | | | variantNonspecific T | | | | | | wave abnormality | | | | | | Anterior leadsAbnormal | | | | | | ECGWhen compared with | | | | | | ECG of 21-JUN-2019 | | | | | | 13:14,Incomplete right | | | | | | bundle branch block is | | | | | | no longer presentT wave | | | | | | flattening has replaced | | | | | | T wave inversion in | | | | | | leads V3-4Confirmed by | | | | | | URI GUTIERREZ MD ([id number]) | | | | | | on 06/22/2019 8:19:48 AM | | | | | | [...] | | | + +---------+ + + ECG - EXTERNAL SCAN (06/11/2019 12:00 AM PDT) + + + | Narrative | Performed At | + + + | Ordered by an | | | unspecified provider. | | + + + documented in this encounter Visit Diagnoses + + | Diagnosis | + + | Chest pain in adult - Primary | + + | Elevated blood pressure reading Elevated blood pressure reading without diagnosis of | | hypertension | + + | Chronic left hip pain Pain in joint, pelvic region and thigh | + + | Weakness generalized Other malaise and fatigue | + + documented in this encounter Administered Medications + +--------+ +--------+------+------+ | Medication Order | MAR | Action | Dose | Rate | Site | | | Action | Date | | | | + +--------+ +--------+------+------+ | iohexol (OMNIPAQUE 350) 350 | Given | 06/21/20 | 65 mLs | | | | mg/mL injection 65 mL 65 mL, | | 19 4:20 | | | | | Intravenous, ONCE PRN, Other, | | PM PDT | | | | | Starting 06/21/19 at 1618, | | | | | | | For 1 dose, Cat Scanner | | | | | | + +--------+ +--------+------+------+ +---+---+ | | | +---+---+ + +------+ +--------+-------+---+ | sodium chloride 0.9% (NS) bolus | Push | 06/21/20 | 40 mLs | 2400 | | | 40 mL 40 mL, Intravenous, | | 19 4:20 | | mL/hr | | | Administer over 1 Minutes, ONCE | | PM PDT | | | | | PRN, for contrast study, Starting | | | | | | | 06/21/19 at 1618, For 1 | | | | | | | dose, May infuse at a different | | | | | | | rate per protocol., Cat Scanner | | | | | | + +------+ +--------+-------+---+ +---+---+ | | | +---+---+ documented in this encounter
--- OUTSIDE RECORDS SUMMARY | ~2020-05-22 | XMS | Encounter Summary ---
Demographics + + + | Address | [address] | | | [place] [address] | + + + | Home Phone | | + + + | Preferred Language | Unknown | + + + | Marital Status | | + + + | Denominational Affiliation | 1028 | + + + | Race | White | + + + | Ethnic Group | Not or | + + + Author + + + | Author | [facility] | | | and [place] | + + + | Organization | [facility] | | | and [place] | + + + | Address | Unknown | + + + | Phone | Unavailable | + + + Support + + +---------+ + | Name | Relationship | Address | Phone | + + +---------+ + | Lenadro Carriazles | ECON | Unknown | | + + +---------+ + Care Team Providers + +------+ + | Care Clinical Services Manager Name | Role | Phone | + +------+ + | Paul Hogan MD | PCP | | + +------+ + Encounter Details +--------+ + + + + | Date | Type | Department | Care Team | Description | +--------+ + + + + | 04/24/ | Preadmit | [facility] | Umer Garcia MD | | | 2015 | Visit | [facility] | [address] | | | | | CLINIC [address] | [place] [address] | | | | | [place] | [phone] | | | | | [address] | | | | | | [phone] | | | +--------+ + + + [...]
--- OUTSIDE RECORDS SUMMARY | ~2020-05-22 | XMS | Encounter Summary ---
Demographics + + + | Address | [address] | | | [place] [address] | + + + | Home Phone | | + + + | Preferred Language | Unknown | + + + | Marital Status | | + + + | Jainism Affiliation | 1028 | + + + | Race | White | + + + | Ethnic Group | Not or | + + + Author + + + | Author | [facility] | | | and [place] | + + + | Organization | [facility] | | [...] Team Providers + +------+ + | Care Assistant Teaching Professor Name | Role | Phone | + +------+ + | Paul Hogan MD | PCP | | + +------+ + Reason for Visit +--------+--------+ + | Reason | Onset | Comments | | | Date | | +--------+--------+ + | Other | 04/28/ | check in instructions | | | 2015 | | +--------+--------+ + Encounter Details +--------+--------+ + + + | Date | Type | Department | Care Team | Description | +--------+--------+ + + + | 04/28/ | Refill | [facility] | Umer Garcia MD | Other ( check in | | 2014 | | NEUROSURGERY [address] | [address] | instructions) | | | | [address] | [place] [address] | | | | | [place] | [phone] | | | | | [address] | | | | | | [phone] | | | +--------+--------+ + + + [...] this encounter Miscellaneous Notes Telephone Encounter - Mulu Zaldivar, Workcell Operator - 04/28/2015 9:33 AM [facility] ed to give surgical check in instructions. Patient verbalized understanding. Martha Zaldivar All presurgical check-in instructions given Surgery date: 04/30/15 Check-in Time: 6:00 am No solids or liquids after midnight the night before surgery. Follow the cleansing instructions provided beginning the night before surgery after you david wer or bathe. No showering the morning of surgery. Please do not wear jewelry, contact lenses, nail iranian (on fingers or toes), or make-up to surgery check-in. If you have dentures, hearing aids, or glasses please bring the cases with you to check-in. Medications instructions: Aspirin, gabapentin, Lisinopril (do not take the morning of) d ocumented in this encounter Plan of Treatment Not on filedocumented as of this encounter Visit Diagnoses Not on filedocumented in this encounter"
--- OUTSIDE RECORDS SUMMARY | ~2020-05-22 | XMS | Encounter Summary ---
Demographics + + + | Address | [address] | | | [place] [address] | + + + | Home Phone | | + + + | Preferred Language | Unknown | + + + | Marital Status | | + + + | Zoroastrian Affiliation | 1028 | + + + | Race | White | + + + | Ethnic Group | Not or | + + + Author + + + | Author | [facility] | | | and [place] | + + + | Organization | [facility] | | | [...] Team Providers + +------+ + | Care Tobacco Weigher Name | Role | Phone | + +------+ + | Paul Hogan MD | PCP | | + +------+ + Reason for Referral Evaluate & Treat (Routine) +--------+ + + + + + | Status | Reason | Specialty | Diagnoses / | Referred By | Referred To | | | | | Procedures | Contact | Contact | +--------+ + + + + + | Closed | Specialty | Neurosurgery | Diagnoses | Umer Garcia | Umer Garcia | | | Services | | Cervical | MD [address] | MD [address] | | | Required | | spondylosis | [address] | [address] | | | | | with | [facility], | [place], [place] | | | | | radiculopath | [place] [address] | [address] | | | | | y Cervical | Phone: | Phone: | | | | | spondylosis | [phone] | [phone] | | | | | with | Fax: | Fax: | | | | | myelopathy | [phone] | [phone] | | | | | Degenerative | | | | | | | disc | | | | | | | disease, | | | | | | | cervical | | | +--------+ + + + + + Encounter Details +--------+ [...] | | [address] | [place] [address] | (Primary Dx); | | | | [place] | [phone] | Cervical spondylosis | | | | [address] | | with myelopathy; | | | | [phone] | | Degenerative disc | | | | | | disease, cervical | +--------+ + + + + Social [...] of this encounter Plan of Treatment + + +--------+ + + | Name | Type | Priori | Associated Diagnoses | Order Schedule | | | | ty | | | + + +--------+ + + | * [facility] | Outpatient | Routin | Cervical | Ordered: 04/24/2015 | | Neurosurgery - AMB | Referral | e | spondylosis with | | | Referral | | | radiculopathy | | | | | | Cervical spondylosis | | | | | | with myelopathy | | | | | | Degenerative disc | | | | | | disease, cervical | | + + +--------+ + + documented as of this encounter Visit Diagnoses + + | Diagnosis | + + | Cervical spondylosis with radiculopathy - Primary Cervical spondylosis with | | myelopathy | + + | Cervical spondylosis with myelopathy | + + | Degenerative disc disease, cervical Degeneration of cervical intervertebral disc | + + documented in this encounter"
--- OUTSIDE RECORDS SUMMARY | ~2020-05-22 | XMS | Encounter Summary ---
Demographics + + + | Address | [address] | | | [place] [address] | + + + | Home Phone [...] Team Providers + +------+ + | Care Vegetable Worker Name | Role | Phone | + +------+ + | Ethan Solomon MD | PCP | | + +------+ + Encounter Details +--------+ + + + + | Date | Type | Department | Care Team | Description | +--------+ + + + + | 01/24/ | Orders Only | [facility] | Hu Quintero MD | | | 2016 | | VASCULAR SURGERY | [address] | | | | | [address] | [place], [place] | | | | | [address] | [address] | | | | | [place], [place] | | | | | | [address] | | | | | | [phone] | | | +--------+ + + + [...]
--- OUTSIDE RECORDS SUMMARY | ~2020-05-22 | XMS | Encounter Summary ---
Demographics + + + | Address | [address] | | | [place] [address] | + + + | Home Phone | | + + + | Preferred Language | Unknown | + + + | Marital Status | | + + + | Anglican Affiliation | 1028 | + + + [...] Team Providers + +------+ + | Care Cdl A Driver Name | Role | Phone | + +------+ + | Paul Hogan MD | PCP | | + +------+ + Encounter Details +--------+ + + + + | Date | Type | Department | Care Team | Description | +--------+ + + + + | 01/18/ | Hospital | [facility] | [place], [place] | Lumbar | | 2016 | Encounter | MED CTR XRAY [address] | [address] | radiculopathy; S/P | | | | [place] | [address] [place] | lumbar fusion | | | | [place], [place] [address] | [address] | | | | | [phone] | | | +--------+ + + + [...] oxyCODONE | Take 1-4 tablets by | 90 | 0 | 01/19/20 | | | (ROXICODONE) 5 mg | [...] LUMBAR SPINE 2 OR | Routin | 01/19/2016 | Lumbar | Results for this | | 3 VW | e | 11:52 AM | radiculopathy S/P | procedure are in the | | | | PDT | lumbar fusion | results section. | + +--------+ + + + documented in this encounter Results XR Lumbar Spine 2 or 3 Vw (01/19/2016 11:52 AM PDT) + + | Specimen | + + | | + + + + + | Narrative | Performed At | + + + | XR LUMBAR SPINE 2 OR 3 VW 01/19/2016 11:52 AM HISTORY: Postop. | [facility] | | COMPARISON: Multiple priors. FINDINGS: Mild right curvature of | [facility] | | the lumbar spine is seen. Again visualized are hardware for posterior | [facility] | | fusion from L4 through S1 with spacer hardware at these levels. Mild | - IMAGING | | retrolistheses are present of L2 over L3 and L4 over L5. Bone | | | mineralization is normal. Stable mild to moderate compression is | | | observed of T12. Mild disc narrowing is at L2-3. Multilevel facet | | | sclerosis and hypertrophy are seen. Visualized ribs and pelvic | | | osseous structures show no acute findings. There is extensive | | | atherosclerosis. Cholecystectomy clips are noted. There are | | | degenerative changes of the hips. IMPRESSION - Stable posterior | | | fusion from L4 through S1. Dictated and Signed by: John Toney | | | Electronically signed: 01/19/2016 4:28 PM | | + + + + + | Procedure Note | + + | Brian, Rad Results In - 01/19/2016 4:31 PM PDT XR LUMBAR SPINE 2 OR 3 VW 01/19/2016 | | 11:52 AMHISTORY: Postop.COMPARISON: Multiple priors.FINDINGS:Mild right curvature of the | | lumbar spine is seen. Again visualized are hardwarefor posterior fusion from L4 through | | S1 with spacer hardware at these levels.Mild retrolistheses are present of L2 over L3 | | and L4 over L5. Bonemineralization is normal. Stable mild to moderate compression is | | observed ofT12. Mild disc narrowing is at L2-3. Multilevel facet sclerosis and | | hypertrophyare seen. Visualized ribs and pelvic osseous structures show no acute | | findings.There is extensive atherosclerosis. Cholecystectomy clips are noted. There | | aredegenerative changes of the hips.IMPRESSION -Stable posterior fusion from L4 through | | S1.Dictated and Signed by: John Toney MD Electronically signed: 01/19/2016 4:28 PM | |mineralization is normal. Stable mild to moderate compression is observed of | |T12. Mild disc narrowing is at L2-3. Multilevel facet sclerosis and hypertrophy | |are seen. Visualized ribs and pelvic osseous structures show no acute findings. | |There is extensive atherosclerosis. Cholecystectomy clips are noted. There are | |degenerative changes of the hips. | | | |IMPRESSION - | |Stable posterior fusion from L4 through S1. | | | |Dictated and Signed by: John Toney MD | | Electronically signed: 01/19/2016 4:28 PM | + + + + + + + | Performing | Address | City/State/Zipcode | Phone Number | | Organization | | | | + + + + + | [facility] | [address] | [place] | [phone] | | [facility] | | [address] | | | - IMAGING | | | | + + + + + documented in this encounter Visit Diagnoses + + | Diagnosis | + + | Lumbar radiculopathy Thoracic or lumbosacral neuritis or radiculitis, unspecified | + + | S/P lumbar fusion Arthrodesis status | + + documented in this encounter"
--- OUTSIDE RECORDS SUMMARY | ~2020-05-22 | XMS | Encounter Summary ---
Demographics + + + | Address | [address] | | | [place] [address] | + + + | Home Phone | | + + + | Preferred Language | Unknown | + + + | Marital Status | | + + + | Temple Affiliation | 1028 | + + + | Race | White | + + + | Ethnic Group | Not or | + + + Author + + + | Author | [facility] | | | and [place] | + + + | Organization | [facility] | | | and [...] Team Providers + +------+ + | Care Luncheonette Manager Name | Role | Phone | + +------+ + | Ethan Solomon MD | PCP | | + +------+ + Encounter Details +--------+ + + + + | Date | Type | Department | Care Team | Description | +--------+ + + + + | 04/25/ | Orders Only | [facility] | Sarkis Garcia DNP | | | 2016 | | VASCULAR SURGERY | [address] | | | | | [address] | [place], [place] | | | | | [address] | [address] | | | | | [place], [place] | | | | | | [address] | | | | | | [phone] | | | +--------+ + + + [...] | 1.7 cm. Please refer to the fiberglass grinder's notes for full details. | | | [...] cm. Please refer to the | | fiberglass grinder's notes for full details. IMPRESSION: No evidence [...]
--- OUTSIDE RECORDS SUMMARY | ~2020-05-22 | XMS | Encounter Summary ---
Demographics + + + | Address | [address] | | | [place] [address] | + + + | Home Phone | | + + + | Preferred Language | Unknown | + + + | Marital Status | | + + + | Mormonism Affiliation | 1028 | + + + | Race | White | + + + | Ethnic Group | Not or | + + + Author + + + | Author | [facility] | | | and [place] | + + + | Organization | [facility] | | [...] Team Providers + +------+ + | Care Tetryl Wringer Operator Name | Role | Phone | [...] | | [address] | [place] [address] | | | | | [place] | [phone] | | | | | [address] | | | | | | [phone] | | | +--------+ + + + [...]
--- OUTSIDE RECORDS SUMMARY | ~2020-05-22 | XMS | Encounter Summary ---
Demographics + + + | Address | [address] | | | [place] [address] | + + + | Home Phone | | + + + | Preferred Language | Unknown | + + + | Marital Status | | + + + | Muslim Affiliation | 1028 | + + + | Race | White | + + + | Ethnic Group | Not or | + + + Author + + + | Author | [facility] | | | and [place] | + + + | Organization | [facility] | | [...] Team Providers + +------+ + | Care Auto Body Straightener Name | Role | Phone | + +------+ + | Paul Hogan MD | PCP | | + +------+ + Reason for Visit +--------+--------+ + | Reason | Onset | Comments | | | Date | | +--------+--------+ + | Other | 12/09/ | presurgical check-in instructions | | | 2015 | | +--------+--------+ + Encounter Details +--------+ + + + + | Date | Type | Department | Care Team | Description | +--------+ + + + + | 12/09/ | Telephone | [facility] [place] | Umer Garcia MD | Other (presurgical | | 2016 | | NEUROSURGERY [address] | [address] | check-in | | | | [address] | [place] [address] | instructions) | | | | [place] | [phone] | | | | | [address] | | | | | | [phone] | | | +--------+ + + + [...] Notes Telephone Encounter - Shirley Shell - 12/13/2015 5:18 PM PDTDue to changes in the ruchi graciela schedule Mellisa's surgery check-in time has been amended to 1:30 pm. Mellisa verbalized understanding. elephone Encounter - Shirley Shell - 12/10/2015 4:29 PM PDTAll presurgical check-in instructions given Surgery date: 12/14/15 Check-in Time: 10:20 a.m. No solids or liquids after midnight the night before surgery. Follow the cleansing instructions provided beginning the night before surgery after you david wer or bathe. No showering the morning of surgery. Please do not wear jewelry, contact lenses, nail qatari (on fingers or toes), or make-up to surgery check-in. If you have dentures, hearing aids, or glasses please bring the cases with you to check-in. Reminded her to bring her brace to check-in. She verbalized understanding. documented in this enc ounter Plan of Treatment Not on filedocumented as of this encounter Visit Diagnoses Not on filedocumented in this encounter"
--- OUTSIDE RECORDS SUMMARY | ~2020-05-22 | XMS | Encounter Summary ---
Demographics + + + | Address | [address] | | | [place] [address] | + + + | Home Phone | | + + + | Preferred Language | Unknown | + + + | Marital Status | | + + + | Hoahaoism Affiliation | 1028 | + + + | Race | White | + + + | Ethnic Group | Not or | + + + Author + + + | Author | [facility] | | | and [place] | + + + | Organization | [facility] | | | [...] Team Providers + +------+ + | Care Forest Pathologist Name | Role | Phone | + [...] | | | | | | | [place] | | | | | | | [...] + + | 12/13/ | Hospital | [facility] | Umer Garcia MD | Gait abnormality | | 2016 - | Encounter | MED CTR SURGICAL | [address] | (Primary Dx) | | | | [address] | [place] [address] | | | 12/15/ | | [place] [address] | [phone] | | | 2015 | | [phone] | | | +--------+ + + + [...] might be differen t from the original. [facility] NEUROSURGERY DISCHARGE SUMMARY Patient Name: Mellisa Carrizales [...] might be differen t from the original. [facility] PROGRESS NOTE Pt. Name/Age/: Mellisa Bryant [place] 80 y.o. 1935 Med. Record Number: [id number] Date of admission: 12/14/2015 Subjective: The patient [...] Electronically signed by: Aric Wilcox, 12/15/2015 7:21 [facility] documented in th is encounter H&P Notes Umer Garcia MD - 12/14/2015 3:17 PM [facility] AND [...] signed by: Umer Garcia MD 12/14/2015 15:17 [facility] aUmer tenorio MD - 12/02 9:50 AM PDT Umer Garcia MD [address] [facility], [address] [place] [address] FAX: NEUROSURGERY FOLLOW-UP CHIEF COMPLAINT: [...] Date DVT of leg (deep venous thrombosis) ([facility]) Osteoarthritis Depression Gastric reflux Hypertension Hyperlipidemia Migraine [...] bedside performing jaw thrustElectronically signed by Solomon Andesron RN at 6:43 PM PDTdocumented in this [...] once pt is awake. [facility]. 6. Give stool softener and laxative [...] multiple contributors. ADLs UB Dressing, Level of Dale: set up required Assistive Device: none UB Dressing Assess/Train, Position: sitting LB, Level of Dale: minimum assist (75% patient effort), set up required, supervisio n required Assistive Device: none LB Dressing Assess/Train, Position: sitting, standing LB Dressing Assess/Train, Impairments: pain Toileting, Level of Dale: supervision required, set up required Assistive Device: bedside commode Toileting Assess/Train, Position: sitting Toileting Assess/Train, Impairments: strength decreased Grooming, Level of Dale: set up required Assistive Device: none Grooming Assess/Train, Position: standing Toilet, Level of Dale: set up required Toilet, Assistive Device: 2 [...] of Care - B donnabetsy, Agustin Eden, CUSTOM GARMENT DESIGNER - 12/16/2015 4:09 AM PDTProblem: Patient Care [...] once pt is awake. Encourage [facility]. 6. Give stool softener and laxative [...] Discectomy Fusion; Surgeon: Umer Garcia MD; Location: [facility] MA[facility] OR Back surgery Right Foot surgery bilateral little toes & left big toe Tonsillectomy and adenoidectomy Lumbar spine surgery Left 12/14/2015 Procedure: L4-5 Lateral Anterior Interbody Fusion w/ L5-S1 Transforaminal Lumbar Interb dominique Fusion; Surgeon: Umer Garcia MD; Location: [facility] MA[facility] OR Allergies Allergen Reactions Codeine [...] assess Pt's functional transfer OOB and to [facility]. She was connected to oxygen monitor machine [...] OT Equipment Recommendations: 2 wheeled walker (FWW), dinkey operator, shower chair, seat riser Identified Problems Needing Skilled Intervention: Generalized post-op debility, aerobic c apacity/endurance Planned Interventions:Planned Therapy Interventions: ADL retraining, transfer training, ort hotic fitting/training Patient Status/Goals Reflects last filed data of patient status; may be from multiple contributors. ADLs LB, Level of Dale: set up required Assistive Device: none LB Dressing Assess/Train, Position: sitting, standing LB Dressing Assess/Train, Impairments: pain Toileting, Level of Dale: supervision required, set up required Assistive Device: bedside commode Toileting Assess/Train, Position: sitting Toileting Assess/Train, Impairments: strength decreased Grooming, Level of Dale: set up required Assistive Device: none Grooming Assess/Train, Position: standing Transfers Toilet, Level of Dale: set up required Toilet, Assistive Device: 2 [...] planning. Mellisa lives with her son in [place]. She will have a caregiver during the day and her so n will help out at night. She will need a FWW, which she doesn't have a preference on the [employer]. This CM will use [employer]. Faxed order and PT notes. Received the [...] once pt is awake. Encourage [facility]. 6. Give stool softener and laxative [...] Discectomy Fusion; Surgeon: Umer Garcia MD; Location: [facility] MA[facility] OR Back surgery Right Foot [...] be from multiple contributors. Gait Level of Dale : supervision required, verbal cues required Assistive Device: 2 wheeled walker (FWW) Distance (feet): 350 Stairs Number of Stairs: 1 Handrail Location: right side (ascending) Level of Dale: verbal cues required, contact guard assist Technique Used: step to step (ascending), step to step (descending) Impairments: impaired balance Transfers Sit-Stand, Level of Dale: supervision required, verbal cues required Stand-Sit, Level of Dale: supervision required, verbal cues required [id number]-[id number], Assistive Device: 2 wheeled walker (FWW) Impairments: strength decreased, sensation decreased, impaired balance, postural control im paired, pain Bed Mobility Roll Left, Level of Dale: not tested Scoot/Bridge, Level of Dale: verbal cues required, supervision required Supine to Sit, Level of Dale: verbal cues required, contact guard assist Sit to Supine, Level of Dale: moderate assist (50% patient effort), verbal cues [...] Activity Type: supine to sit/sit to supine Dale Level: independent Assistive Device: none Time to Achieve: 2 days Goal Status: new Transfer Training Goal, Activity Type: sit to stand/stand to sit Dale Level: modified independence Assistive Device: 2 wheeled walker (FWW) Time to Achieve: 2 days Goal Status: new Gait Training Goal, Dale Level: modified independence Assistive Device: 2 wheeled walker (FWW) Distance: 350 Time to Achieve: 2 days Goal Status: new Stairs Goal, Dale Level: supervision required Assistive Device: none Number [...] and walk around a little. Patient is Confucianism and I wished her good health. Spiritual Intervention: Patient would like to get well soon and go home to her 15 year old dog Chemo. She was very polite and nice. Had a good visit with her and wished her good [facility]. Spiritual Outcomes: Patient thank me for the visit. Spiritual Goals/Follow up: Supervisor Net Making will continue to provide ongoing emotional/spiritual support for patient as requested. lan of Agustin Raymond, CUSTOM GARMENT DESIGNER - 12/15/2015 5:09 AM PDTProblem: Patient Care [...] s/s of infections through POD 5. 8. Mellias will meet 75% of predicted goal of [...] once pt is awake. Encourage [facility] to [facility]. 6. Give stool softener and laxative [...] Mellisa Bryant Sjurset 80 y.o. female 1935 [id number] Proc. Date 12/14/2015 Preop Dx Lumbar degenerative [...] Roldan Surgeon Umer Garcia MD - Primary Logistics Manager [address] Findings L4-S1 DDD, [...] PEEK spacer was prepared filling it with [place]/BMP and then t amping it into the [...] signed by: Umer Garcia MD 12/14/2015 18:23 [facility] rief Op Note - Jacob Garcia MD - 12/14/2015 6:23 PM PDTFormatting of this note might be different from the origin al. Brief Operative Note Mellisa Bryant S[place]set 80 y.o. female 1935 [id number] Proc. Date 12/14/2015 Preop Dx Lumbar degenerative [...] Roldan Surgeon Umer Garcia MD - Primary Logistics Manager [address] Findings L4-S1 DDD, severe at L5-S1. B bracing. Complications none Specimens * No specimens in log * Drains LIZBETH Electronically signed by: Umer Garcia MD 12/14/2015 18:[address] [facility] signed by Umer Garcia MD at 016 [...] + + | Performing | Address | City/State/[facility] | Phone Number | | Organization | [...] [address] | [place] | [phone] | | [facility] | | [address] | | | - LABORATORY | | [...] | | | | g/dL | [facility] | | | | | | MEDICAL [...] ST. | [address] | [place], [place] | [phone] | | [facility] | | [address] | | | - LABORATORY | | [...] | non- | FILTRATION | mL/min/1.73m2 | [facility] | | | [place] | RATE,ESTIMATED | | MEDICAL | | | | mL/min/1.69q2Mioe than | | CENTER - | | [...] [address] | [place] | [phone] | | [facility] | | [address] | | | - LABORATORY | | [...] | | | | URI GUTIERREZ MD ([id number]) | | | | | | on [...]
--- OUTSIDE RECORDS SUMMARY | ~2020-05-22 | XMS | Encounter Summary ---
Demographics + + + | Address | [address] | | | [place] [address] | + + + | Home Phone | | + + + | Preferred Language | Unknown | + + + | Marital Status | | + + + | Restorationism Affiliation | 1028 | + + + | Race | White | + + + | Ethnic Group | Not or | + + + Author + + + | Author | [facility] | | | and [place] | + + + | Organization | [facility] | | [...] Team Providers + +------+ + | Care Donation Specialist Name | Role | Phone | + +------+ + | Paul Hogan MD | PCP | | + +------+ + Reason for Visit + + + | Reason | Comments | + + + | Back Pain | Pain in legs, mostly in left leg | + + + Encounter Details +--------+---------+ + + + | Date | Type | Department | Care Team | Description | +--------+---------+ + + + | 12/02/ | Office | [facility] [place] | Umer Garcia MD | DEGENERATIVE DISC | | 2016 | Visit | NEUROSURGERY [address] | DISEASE, LUMBAR | | | | [address] | [place] [address] | SPINE (Primary Dx); | | | | [place] | [phone] | Facet arthropathy, | | | | [address] | | lumbar; Lumbar | | | | [phone] | | radiculopathy; | | | | | | Foraminal stenosis | | | | | | of lumbar region; | | | | | | S/P cervical spinal | | | | | | fusion | +--------+---------+ + + + Social History [...] + + + | Blood Pressure | 137/89 | 12/03/2015 9:27 AM | | | | | PDT | | + + + + + | Pulse | 81 | 12/03/2015 9:27 AM | | | | | PDT | | + + + + + | Temperature | - | - | | + + + + + | Respiratory Rate | 18 | 12/03/2015 9:27 AM | | | | | PDT | | + + + + + | Oxygen Saturation | - | - | | + + + + + | Inhaled Oxygen | - | - | | | Concentration | | | | + + + + + | Weight | 75.3 kg (166 lb) | 12/03/2015 9:27 AM | | | | | PDT | | + + + + + | Height | 165.1 cm (5' 5") | 12/03/2015 9:27 AM | | | | | PDT | | + + + + + | Body Mass Index | 27.62 | 12/03/2015 9:27 AM | | | | | PDT [...] documented as of this encounter Progress Notes Umer Garcia MD - 12/03/2015 9:50 AM PDTFormatting of this note might be different from t he original. 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
--- OUTSIDE RECORDS SUMMARY | ~2020-05-22 | XMS | Encounter Summary ---
Demographics + + + | Address | [address] | | | [place] [address] | + + + | Home Phone | | + + + | Preferred Language | Unknown | + + + | Marital Status | | + + + | Yarsani Affiliation | 1028 | + + + [...] Team Providers + +------+ + | Care Wrap Checker Name | Role | Phone | + +------+ + | Ethan Solomon MD | PCP | | + +------+ + Reason for Visit + + + | Reason | Comments | + + + | New Patient | chest pain | + + + Evaluate & Treat (Routine) +--------+--------+ + + + + | Status | Reason | Specialty | Diagnoses / | Referred By | Referred To | | | | | Procedures | Contact | Contact | +--------+--------+ + + + + | Closed | | Cardiology | Diagnoses | Ezequiel, | Beka, | | | | | Chest Pain | Socrates Escalante, | Deep Monaco MD | | | | | Procedures | [address] | | | | | Consult | [place] | [place] | | | | | | [place] | [place] | | | | | | [place] | [place] | | | | | | [address] | [address] Phone: | | | | | | Phone: | [phone] | | | | | | [phone] | Fax: | | | | | | Fax: | [phone] | | | | | | [phone] | | +--------+--------+ + + + + Encounter Details +--------+---------+ + + + | Date | Type | Department | Care Team | Description | +--------+---------+ + + + | 10/29/ | Office | [facility] | Deep Ireland, | Chest pain, | | 2019 | Visit | CARDIOLOGY [place] | MD [address] | non-cardiac (Primary | | | | [address] | [place], | Dx); PVD | | | | [address] | [place] [address] | (peripheral vascular | | | | [place], [place] | [phone] | disease) (HCC); | | | | [address] | | Osteoarthritis of | | | | [phone] | | left hip, | | | | | | unspecified | | | | | | osteoarthritis type; | | | | | | Preoperative | | | | | | cardiovascular | | | | | | examination | +--------+---------+ + + + Social History [...] + + + | Blood Pressure | 144/78 | 10/29/2019 1:39 PM | | | [...] + + + + | Weight | 73.4 kg (161 lb 12.8 | 10/29/2019 1:39 PM | | | | oz) | PST | | + + + + + | Height | 165.1 cm (5' 5") | 10/29/2019 1:39 PM | | | | | PST | | + + + + + | Body Mass Index | 26.92 | 10/29/2019 1:39 PM | | | [...] documented as of this encounter Progress Notes Deep Ireland MD - 10/29/2019 1:30 PM PSTFormatting of this note might be different fro m the original. Subjective: Patient ID: Mellisa Carrizales is a 84 y.o. female. HPI Patient's medications, allergies, past medical, surgical, social and family histories were obtained and reviewed as appropriate. Mrs. Carrizales to the office today for a preoperative cardiovascular risk assessment. She wa s scheduled for a left total hip replacement, but was seen in the [facility] room for what was diagnosed as noncardiac chest pain on 06/11/19. It was right-sided, a nd pleuritic, worse with deep inspiration and cough, with slight nausea but no dyspnea. It was also positional, he was unable to lie on her left side for 3 days prior to being seen in the ER. The diagnosis was of costochondritis. Her EKG at that time (personally reviewed ludwin luis) showed sinus rhythm with a first-degree AV block, incomplete right bundle branch block , LAFB, with no ischemic changes, and the only other abnormality noted was mild-moderate ath erosclerotic calcification in the aortic arch. She still has similar chest pains with sneez ing, coughing and certain movements, but not otherwise. She thinks she "cracked a rib" with a nonsyncopal fall at home, in the dark, several months ago. It is highly unlikely that he r chest pain is cardiac in nature. For, she would appear to have a low, acceptable risk for perioperative cardiovascular complications and with general anesthesia. She does not requi re stress testing or other preoperative evaluation, and I told her that she could call Dr. Mary flynn to have her surgery scheduled whenever he can arrange for it to be done. She does not require cardiology follow-up. ROS CONSTITUTIONAL: 7 lb weight increase in the last year, denies recent fever, chills, night sweats, c/o significant Fatigue NEUROLOGIC: No history of CVA, TIA. She has a h/o Migraines, denies seizures, had a remot e vasovagal syncopal event at age 21. No recent dizziness, lightheadedness. No numbness, ti ngling, has Peripheral Neuropathy with bilateral foot [id number] paresthesias. EYES: No amaurosis, diplopia, recent visual changes, cataracts or glaucoma ENT: No hearing loss, tinnitus, epistaxis, dysphagia ENDOCRINE: No history of diabetes. She has Hypothyroidism, with "6" thyroid Nodules, no ot her endocrine problems. No excessive hunger, thirst. PULMONARY/SLEEP: No dyspnea, orthopnea, paroxysmal nocturnal dyspnea. No history of asthm a, emphysema. No history of pneumonia. She has Obstructive Sleep Apnea, not on CPAP. CARDIOVASCULAR: She has pleuritic, positional chest pain, as above following a non-syncopa l fall in the dark at home. No history of CAD. No history of heart failure. No history of c ardiac arrhythmias. She has rare Palpitations, described as a "thump". She has a history of a heart Murmur, denies rheumatic fever. She has a prior h/o Essential Hypertension, had Hy perlipidemia, states both resolved with a > 80 lb weight loss years ago. No edema, has PVD with a left mid axillary artery ligation, left axillary artery thrombectomy, left axillary t o axillary artery bypass with reversed left great saphenous vein in 2017, after her artery w as accidentally lacerated during shoulder replacement surgery. She has no claudication symp toms. No h/o an AAA. Varicose veins with reflux in the right greater saphenous vein distal left greater saphenous vein -- Carotid U/S (08/15/18): mild plaque in the proximal LICA, right bifurcation and proximal RADHA -- LE Arterial U/S & AICHA (01/24/17): right AICHA 0.93 triphasic waveforms, Left AICHA 0.63 monop hasic waveformsssential -- PV Angio (01/23/13): 50% right popliteal, right CHIEF INVESTMENT OFFICER occluded proximally with reconstituti on; 70% left popliteal artery with reconstitution, left CHIEF INVESTMENT OFFICER occluded, reconstituted distally GASTROINTESTINAL: GERD. A small Hiatal Hernia was seen on a CTA 06/21/19. No recent abdo polly pain, nausea, vomiting or diarrhea. Denies PUD, melena, hematochezia, hepatitis. RENAL/: No history of kidney disease. She has had frequent UTIs. No dysuria, hematuria , urinary urgency, hesitancy. 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 HEMATOLOGY/ONCOLOGY: No h/o bleeding disorders, has a h/o a remoted h/o a LLE DVT, found w ith varicose vein stripping, denies any h/o PE. She notes easy bruisability, no significan t bleeding. No history of anemia, except with acute blood loss, had a blood transfusion in 2017. No history of cancer. MUSCULOSKELETAL: No myalgias, has Lumbar DDD, Osteoarthritis with hip, shoulder Arthralgia s. No history of rheumatologic or autoimmune diseases. CUTANEOUS: No rashes, pruritus, lesions. PSYCHIATRIC: She has a history of Depression, Anxiety, Claustrophobia, no other psychiatri c problems. Past Medical History: Diagnosis Date Allergic rhinitis, cause unspecified Anxiety Back pain Bursitis of hip Claustrophobia DDD (degenerative disc disease) pain in hips Depression DVT of leg (deep venous thrombosis) (HCC) Full dentures upper & lower Gastric reflux Hyperlipidemia Hypertension Hypothyroid Migraine Neuropathy Neuropathy of both feet Osteoarthritis Peripheral vascular disease (HCC) Poor circulation Seasonal allergies Sleep apnea no CPAP Past Surgical History: Procedure Laterality Date APPENDECTOMY BACK SURGERY Right BLADDER REPAIR x 3 CERVICAL SPINE SURGERY N/A 04/30/2015 Procedure: C5-6, C6-7 Anterior Cervical Discectomy Fusion; Surgeon: Umer Garcia MD; Loc ation: [facility] MAIN OR FOOT SURGERY bilateral little toes & left big toe HIATAL HERNIA REPAIR HYSTERECTOMY HYSTERECTOMY LUMBAR SPINE SURGERY Left 12/14/2015 Procedure: L4-5 Lateral Anterior Interbody Fusion w/ L5-S1 Transforaminal Lumbar Interbody Fusion; Surgeon: Umer Garcia MD; Location: [facility] MAIN OR OTHER SURGICAL HISTORY Left 01/03/2017 BYPASS GRAFT-AXILLARY ARTERY - Procedure: BYPASS GRAFT - AXILLARY ARTERY; Surgeon: Hu Yu MD; Location: [facility] MAIN OR; Service: Vascular; Laterality: Left; Left axillary ex ploration and axillary artery repair. Left saphenous vein harvest SHOULDER ARTHROSCOPY Bilateral SHOULDER SURGERY Left 01/03/2017 Dr. Rausch [facility]. SHOULDER SURGERY Left 01/03/2017 Procedure: SHOULDER - TOTAL; Surgeon: Umer Hendrix MD; Location: [facility] MAIN OR; Serv ice: Orthopedics; Laterality: Left; Tornier component TONSILLECTOMY AND ADENOIDECTOMY Family History Problem Relation Age of Onset Cancer Father Cancer Mother Thyroid Cancer Arthritis Other Hypertension Other Kidney disease Brother Cancer Brother Heart attack Paternal Grandfather Social History Socioeconomic History Marital status: Spouse name: Not on file Number of children: 3 Years of education: Not on file Highest education level: Not on file Occupational History Occupation: Retired Social Needs Financial resource strain: Not on file Food insecurity: Worry: Not on file Inability: Not on file Transportation needs: Medical: Not on file Non-medical: Not on file Tobacco Use Smoking status: Never Smoker Smokeless tobacco: Never Used Substance and Sexual Activity Alcohol use: Yes Alcohol/week: 1.0 standard drinks Types: 1 Shots of liquor per week Frequency: 4 or more times a week Drinks per session: 1 or 2 Binge frequency: Never Comment: Alcoholic Drinks/day: daily shot of strawberry liqueur Drug use: No Comment: Drug use: No Sexual activity: Never Lifestyle Physical activity: Days per week: Not on file Minutes per session: Not on file Stress: Not on file Relationships Social connections: Talks on phone: Not on file Gets together: Not on file Attends denominational service: Not on file Active member of club or organization: Not on file Attends meetings of clubs or organizations: Not on file Relationship status: Not on file Intimate partner violence: Fear of current or ex partner: Not on file Emotionally abused: Not on file Physically abused: Not on file Forced sexual activity: Not on file Other Topics Concern Not on file Social History Narrative Not on file Allergies Allergen Reactions Penicillin V Potassium Swelling Intolerance Allergen Reactions Codeine Sulfate Nausea And Vomiting Current Outpatient Medications Medication Sig Dispense Refill Acetaminophen (TYLENOL ARTHRITIS PAIN PO) Take 1,000 mg by mouth 3 times daily. furosemide (LASIX) 20 mg tablet TK 1 T PO QD 4 gabapentin (NEURONTIN) 300 mg capsule Take 300 mg by mouth 2 times daily. (Patient sophia thomas differently: Take 600 mg by mouth 3 times daily.) losartan (COZAAR) 50 mg tablet MELATONIN ER PO Take 25 mg by mouth nightly. PARoxetine (PAXIL) 40 MG tablet TK 1 T PO QAM 4 No current facility-administered medications for this visit. Objective: BP 144/78 | Pulse 84 | Ht 1.651 m (5' 5") | Wt 73.4 kg (161 lb 12.8 oz) | SpO2 97% | B CA 26.92 kg/m PHYSICAL EXAM GENERAL: Well developed, well nourished, in no distress. Appears approximately stated age . HEENT: Normocephalic, atraumatic. EYES: PERRL, sclerae anicteric, no xanthelsasmas MOUTH: Oral mucosae moist, dentition adequate, no lesions noted NECK: No JVD, lymphadenopathy, thyromegaly, bruits. Carotid pulses are 2+ bilaterally LUNGS: Clear bilaterally, with no rales, rhonchi or wheezing noted, respirations unlabored HEART: Nondisplaced PMI, regular rate and rhythm, S1, S2 normal. 1-2/6 systolic crescendo decrescendo murmur at the base, without radiation. No rubs or gallops noted. ABDOMEN: Soft, nontender, no organomegaly, masses or bruits. Bowel sounds are normal in a ll 4 quadrants. The abdominal aortic pulsation is not palpable. EXTREMITIES: No edema. Radial pulses 2+ bilaterally. Femoral pulses are 2+ bilaterally wi thout bruits. DP pulses are not palpable, PT pulses are trace+ bilaterally. SKIN: Warm and dry, capillary refill is normal, no lesions. NEUROLOGIC: Awake, alert and oriented x 3. No focal motor deficits. PSYCHIATRIC: Appropriate, affect appears normal Assessment: Mellisa was seen today for new patient. Diagnoses and all orders for this visit: Chest pain, non-cardiac PVD (peripheral vascular disease) (HCC) Osteoarthritis of left hip, unspecified osteoarthritis type Preoperative cardiovascular examination Plan: No cardiology follow up needed 2: 43 PM PSTdocumented in this encounter Plan of Treatment Not on filedocumented as of this encounter Visit Diagnoses + + | Diagnosis | + + | Chest pain, non-cardiac - Primary Other chest pain | + + | PVD (peripheral vascular disease) (HCC) Peripheral vascular disease, unspecified | + + | Osteoarthritis of left hip, unspecified osteoarthritis type | + + | Preoperative cardiovascular examination Pre-operative cardiovascular examination | + + documented in this encounter
--- OUTSIDE RECORDS SUMMARY | ~2020-05-22 | XMS | Encounter Summary ---
Demographics + + + | Address | [address] | | | [place] [address] | + + + | Home Phone [...] + + + | Author | [facility] | | | and [place] | + + + | Organization | [facility] | | | [...] Team Providers + +------+ + | Care Antisqueak Worker Name | Role | Phone | + +------+ + | Ethan Solomon MD | PCP | | + +------+ + Encounter Details +--------+ + + + + | Date | Type | Department | Care Team | Description | +--------+ + + + + | 06/21/ | Imaging | [facility] [place] | Napoleon Gonzalez | | | 2019 | Exam | [place] [address] | [address] [place] | | | | | [place] [id number] | [address] | | | | | [phone] | | | +--------+ + + + [...] + +--------+ + + + | XR RIBS RIGHT W PA | STAT | 06/21/2019 | Other chest pain, | Results for this | | CHEST | | 1:40 PM | right anterior | procedure are in the | | | | PDT | | results section. | + +--------+ + + + documented in this encounter Results XR Ribs Right w PA Chest (06/21/2019 1:40 PM PDT) + + | Specimen | + + | | + + + + + | Impressions | Performed At | + + + | No displaced or angulated right rib fractures. No pleural | [facility] | | effusion or pneumothorax. Dictated and Signed by: Abdirashid aSnchez, | | | Electronically signed: 06/21/2019 2:31 PM | | + + + + + + | Narrative | Performed At | + + + | EXAM:XR RIBS RIGHT W PA CHEST CLINICAL HISTORY: History of fall | [facility] | | with right anterior chest wall pain. COMPARISON: 04/24/2015 | | | FINDINGS: Frontal view the chest. Dedicated images of the right | | | ribs. No large effusion. No pneumothorax. Mild cardiomegaly. | | | There is a healed left rib deformity. Arthroplasty changes are | | | present in the left shoulder. Fusion related changes in the lower | | | cervical spine. No displaced or angulated right rib fractures. | | | Chronic posttraumatic and degenerative changes in the right | | | acromioclavicular joint. | | + + + + + | Procedure Note | + + | Brian, Rad Results In - 06/21/2019 2:34 PM PDT EXAM:XR RIBS RIGHT W PA CHEST | | | | CLINICAL HISTORY: History of fall with right anterior chest wall pain. | | | | COMPARISON: 04/24/2015 | | | | FINDINGS: Frontal view the chest. Dedicated images of the right ribs. | | | | No large effusion. No pneumothorax. Mild cardiomegaly. There is a healed left | | rib deformity. Arthroplasty changes are present in the left shoulder. Fusion | | related changes in the lower cervical spine. | | | | No displaced or angulated right rib fractures. Chronic posttraumatic and | | degenerative changes in the right acromioclavicular joint. | | | | IMPRESSION: | | | | No displaced or angulated right rib fractures. | | | | No pleural effusion or pneumothorax. | | | | Dictated and Signed by: Abdirashid Sanchez MD | | Electronically signed: 06/21/2019 2:31 PM | + + + +---------+ + + | Performing | Address | City/State/Zipcode | Phone Number | | Organization | | | | + +---------+ + + | [facility] | | | | + +---------+ + + documented in this encounter Visit Diagnoses Not on filedocumented in this encounter"
--- OUTSIDE RECORDS SUMMARY | ~2020-05-22 | XMS | Encounter Summary ---
Demographics + + + | Address | [address] | | | [place] [address] | + + + | Home Phone | | + + + | Preferred Language | Unknown | + + + | Marital Status | | + + + | Religion Affiliation | 1028 | + + + | Race | White | + + + | Ethnic Group | Not or | + + + Author + + + | Author | [facility] | | | and [place] | + + + | Organization | [facility] | | [...] Team Providers + +------+ + | Care Warp Scouring Vat Tender Name | Role | Phone | + +------+ + PCP | Unavailable | + +------+ + Encounter Details +--------+ + + + + | Date | Type | Department | Care Team | Description | +--------+ + + + + | 06/16/ | [facility] | [facility] | David Lyons | | | 2008 | Encounter | [facility] | MD [place] [address] | | | | | [place] [address] | [address] | | | | | [place] | [place] [address] | | | | | [address] | [phone] | | | | | [phone] | | | +--------+ + + + [...]
--- OUTSIDE RECORDS SUMMARY | ~2020-05-22 | XMS | Encounter Summary ---
Demographics + + + | Address | [address] | | | [place] [address] | + + + | Home Phone [...] + + + | Author | [facility] | | | and [place] | + + + | Organization | [facility] | | | [...] Team Providers + +------+ + | Care Cloth Examiner Machine Name | Role | Phone | + [...] | | | | | [address] | | | | | | [place], [place] | | | | | | [address] | | | | | | [phone] | | | +--------+ + + + [...]
--- OUTSIDE RECORDS SUMMARY | ~2020-05-22 | XMS | Encounter Summary ---
Demographics + + + | Address | [address] | | | [place] [address] | + + + | Home Phone | | + + + | Preferred Language | Unknown | + + + | Marital Status | | + + + | Latter Day Affiliation | 1028 | + + + [...] Team Providers + +------+ + | Care Mold Cleaner Name | Role | Phone | + +------+ + | Ethan Solomon MD | PCP | | + +------+ + Encounter Details +--------+ + + + + | Date | Type | Department | Care Team | Description | +--------+ + + + + | 04/17/ | Orders Only | [facility] | Dariel Hendrix, | | | 2018 | | [facility] | MD [address] | | | | | [address] | [place] [address] | | | | | [place], [place] | [phone] | | | | | [address] | | | | | | [phone] | | | +--------+ + + + [...] | | VW | e | 9:30 AM | | procedure are in the | | | | PDT | | results section. | + +--------+ + + + documented in this encounter Results XR Shoulder Left 2 + Vw (04/17/2019 9:30 AM PDT) + + | Specimen | + + | | + + + + + | Narrative | Performed At | + + + | History: This is a 84 y.o. year old female. Diagnosis for Order | | | ICD-10-CM 1. Primary osteoarthritis of left shoulder M19.012 X-ray | | | shoulder left complete 2+v . Technique: 3 views left shoulder. | | | AP, Grashey, scapular Y. Comparison Exam: 10/25/2017, [facility] | | | [facility].. Findings: The patient status post left [...] created this entry | | | using Verimed Voice Recognition software and Cheers | | | macros. The entry has been reviewed and there may still exist | | | sound alike word errors. | | + + + + + | Procedure Note | + + | Aleksander Torres Conversion - 05/17/2019 9:24 AM PDT History: This is a 84 y.o. year old | | female. Diagnosis for Order ICD-10-CM1. Primary osteoarthritis of left shoulder | | M19.012 X-ray shoulder leftcomplete 2+v. Technique: 3 views left shoulder. AP, Grashey, | | scapular Y. Comparison Exam: 10/25/2017, [facility].. Findings: The patient | | status post left total shoulder arthroplasty. Theprosthesis is in good position, | | without evidence of failure or loosening.There is a surgical clip in the axilla | | consistent with the repair andclipping of the axillary artery. There is no fracture or | | dislocationnoted. There is a residual inferior humeral head osteophyte.. Impression: | | Status post left total shoulder arthroplasty, withsatisfactory radiographic outcome.. | | Electronically signed by: DARIEL HENDRIX MD 04/17/2019 9:34 AM DARIEL HENDRIX MD has | | created this entry using Verimed VoiceRecognition software and Cheers macros. | | The entry has been reviewed andthere may still exist [...] HENDRIX MD has created this entry using Verimed Voice | |Recognition software and Cheers macros. The entry has been reviewed and | |there may still exist sound alike word errors. | | | + + documented in this encounter Visit Diagnoses Not on filedocumented in this encounter"
--- OUTSIDE RECORDS SUMMARY | ~2020-05-22 | XMS | Encounter Summary ---
Demographics + + + | Address | [address] | | | [place] [address] | + + + | Home Phone [...] Team Providers + +------+ + | Care Molecular Biology Professor Name | Role | Phone | + +------+ + | Ethan Solomon MD | PCP | | + +------+ + Encounter Details +--------+ + + + + | Date | Type | Department | Care Team | Description | +--------+ + + + + | 04/10/ | Orders Only | [facility] | Abiodun Mcadams | | | 2016 | | [address] | [address] | | | | | [address] | [address], | | | | | [place], [place] | [place] [address] | | | | | [address] | [phone] | | | | | [phone] | | | +--------+ + + + [...] XR CERVICAL SPINE 4 | Routin | 04/10/2017 | | Results for this | | OR 5 VWS | e | 4:44 PM | | procedure are in the | | | | PDT | | results section. | + +--------+ + + + documented in this encounter Results XR Cervical Spine 4 or 5 Vws (04/10/2017 4:44 PM PDT) + + | Specimen | + + | | + + + + + | Narrative | Performed At | + + + | History: This is a 82 y.o. year old female. Diagnosis for Order | | | ICD-10-CM 1. 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 Neck Pain X-ray | | | c-spine 4-5 views Findings: 3 views left shoulder, AP, Grashey, | | | scapular Y. There is a total shoulder arthroplasty in place. There is | | | no evidence of fracture, dislocation, or other abnormality. The | | | prosthesis is in good position. There is a residual inferior humeral | | | head osteophyte. Visualized lung snede are clear. 4 view cervical | | | spine. AP, lateral, flexion, extension. Patient is status post | | | anterior cervical fusion from C5-C7. The hardware is in good | | | position. The fusion appears intact. There is adjacent level disease | | | at C4-5 with narrowing the disc space osteophytes and beaking of the | | | anterior endplate of C4. Flexion and extension views demonstrate no | | | instability of the cervical spine. Impression: Status post left | | | total shoulder arthroplasty with satisfactory radiographic outcome. | | | Status post C5-C7 ACDF with hardware in good position. Adjacent level | | | degenerative disc disease at C4-5.. DARIEL SOUZA MD | | | 04/11/2017 DARIEL SOUZA MD has created this entry using [employer] | | | Medical Voice Recognition software and [employer] macros. The entry | | | has been reviewed and there may still exist sound alike word errors. | | | | | + + + + + | Procedure Note | + + | Brian, Aleksander Conversion - 05/02/2019 6:50 PM PDT History: This is a 82 y.o. year old | | female. Diagnosis for Order ICD-10-CM1. 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 Neck Pain X-ray c-spine 4-5 views | | Findings: 3 views left shoulder, AP, Grashey, scapular Y. There is a totalshoulder | | arthroplasty in place. There is no evidence of fracture,dislocation, or other | | abnormality. The prosthesis is in good position.There is a residual inferior humeral | | head osteophyte. Visualized lungfields are clear.4 view cervical spine. AP, lateral, | | flexion, extension. Patient is statuspost anterior cervical fusion from C5-C7. The | | hardware is in goodposition. The fusion appears intact. There is adjacent level disease | | atC4-5 with narrowing the disc space osteophytes and beaking of the anteriorendplate of | | C4. Flexion and extension views demonstrate no instability ofthe cervical spine. | | Impression: Status post left total shoulder arthroplasty with satisfactoryradiographic | | outcome. Status post C5-C7 ACDF with hardware in goodposition. Adjacent level | | degenerative disc disease at C4-5.. DARIEL SOUZA MD04/11/2017 DARIEL SOUZA MD has | | created this entry using [employer] software and [employer] | | macros. The entry has been reviewed andthere may still exist sound alike word | | errors. | | | |Impression: Status post left total shoulder arthroplasty with satisfactory | |radiographic outcome. Status post C5-C7 ACDF with hardware in good | |position. Adjacent level degenerative disc disease at C4-5.. | | | | | |DARIEL SOUZA MD | |04/11/2017 | | | |DARIEL SOUZA MD has created this entry using [employer] | |Recognition software and [employer] macros. The entry has been reviewed and | |there may still exist sound alike word errors. | | | + + documented in this encounter Visit Diagnoses Not on filedocumented in this encounter"
--- OUTSIDE RECORDS SUMMARY | ~2020-05-22 | XMS | Encounter Summary ---
Demographics + + + | Address | [address] | | | [place] [address] | + + + | Home Phone | | + + + | Preferred Language | Unknown | + + + | Marital Status | | + + + | Presybeterian Affiliation | 1028 | + + + | Race | White | + + + | Ethnic Group | Not or | + + + Author + + + | Author | [facility] | | | and [place] | + + + | Organization | [facility] | | | and [...] Team Providers + +------+ + | Care Pure Culture Operator Name | Role | Phone | [...] | | | | | | | [place] | | | | | | | [...] | | | | | [address] | [address] [place] | | | | | [place], [place] | [place] [address] | | | | | [address] | | | | | | | | | | | | | Master Gómez MD | | | | | | [address] | | | | | | [place], [place] | | | | | | [address] | | | | | | | [...] +----+---+ + + | | 1 | [place] | | | | 5 | 43-degrees [...] +----+---+ + + | | 1 | [place] off | | | | 8 | [...] 1647 by | | eral | 1430; gmtu-kto-muilcy catheter | Keren Donohue RN | Darren [...] Mellisa Bryant Sjurset 80 y.o. female 1935 [id number] Procedure(s) L4-5 Lateral Anterior Interbody Fusion w/ [...] signed by Lynette Roldan MD 12/14/2015 18:43 [facility] Proced ure Notes - [...] EVALUATION Mellisa Carrizales 80 y.o. female 1935 [id number] Procedure(s): L4-5 Lateral Anterior Interbody Fusion w/ [...]
--- OUTSIDE RECORDS SUMMARY | ~2020-05-22 | XMS | Encounter Summary ---
Demographics + + + | Address | [address] | | | [place] [address] | + + + | Home Phone | | + + + | Preferred Language | Unknown | + + + | Marital Status | | + + + | Buddhist Affiliation | 1028 | + + + [...] Team Providers + +------+ + | Care Software Quality Assurance Specialist Name | Role | Phone | + +------+ + | Paul Hogan MD | PCP | | + +------+ + Encounter Details +--------+ + + + + | Date | Type | Department | Care Team | Description | +--------+ + + + + | 02/27/ | Orders Only | [facility] | Aric Wilcox | Spinal stenosis, | | 2016 | | NEUROSURGERY [address] | [address] | lumbar; Lumbar | | | | [address] [place], [place] | radiculopathy; | | | | [place], [place] | [address] | Foraminal stenosis | | | | [address] | | of cervical region; | | | | [phone] | | S/P lumbar fusion | +--------+ + + + + Social [...] LUMBAR SPINE 2 OR | Routin | 04/14/2016 | Spinal stenosis, | Results for this | | 3 VW | e | 1:46 PM | lumbar Lumbar | procedure are in the | | | | PDT | radiculopathy | results section. | | | | | Foraminal stenosis | | | | | | of cervical region | | | | | | S/P lumbar fusion | | + +--------+ + + + [...] COMPARISON: 01/19/2016 FINDINGS: Posterior spinal fusion | [facility] | | hardware seen at the levels of L4-S1, with disc spacer placement at [facility] | | the intervening levels, without [...] | + + + + + | [address] | [address] | [place], [place] | [phone] | | [facility] | | [address] | | | - IMAGING | | | | + + + + + documented in this encounter Visit Diagnoses + + | Diagnosis | + + | Spinal stenosis, lumbar Spinal stenosis, lumbar region, without neurogenic | | claudication | + + | Lumbar radiculopathy Thoracic or lumbosacral neuritis or radiculitis, unspecified | + + | Foraminal stenosis of cervical region Spinal stenosis in cervical region | + + | S/P lumbar fusion Arthrodesis status | + + documented in this encounter"
--- OUTSIDE RECORDS SUMMARY | ~2020-05-22 | XMS | Encounter Summary ---
Demographics + + + | Address | [address] | | | [place] [address] | + + + | Home Phone | | + + + | Preferred Language | Unknown | + + + | Marital Status | | + + + | Baptist Affiliation | 1028 | + + + | Race | White | + + + | Ethnic Group | Not or | + + + Author + + + | Author | [facility] | | | and [place] | + + + | Organization | [facility] | | | [...] Team Providers + +------+ + | Care Administrative Assistant Receptionist Name | Role | Phone | + +------+ + | Paul Hogan MD | PCP | | + +------+ + Reason for Visit + +--------+ + | Reason | Onset | Comments | | | Date | | + +--------+ + | Imaging Only | 08/25/ | XR Lumbar @ [facility] | | | 2014 | | + +--------+ + Encounter Details +--------+ + + + + | Date | Type | Department | Care Team | Description | +--------+ + + + + | 08/25/ | Telephone | [facility] [place] | Umer Garcia MD | Imaging Only (XR | | 2015 | | NEUROSURGERY [address] | [address] | Lumbar @ [facility]) | | | | [address] | [place] [address] | | | | | [place] | [phone] | | | | | [address] | | | | | | [phone] | | | +--------+ + + + [...] this encounter Miscellaneous Notes Telephone Encounter - Suleman Shirley Escalante - 09/23/2015 9:29 AM PSTImaging is available for review on i-site. We will contact patient to reschedule her 12 week postop visit.Electronic ally signed by Shirley Shell at 09/23/2015 9:30 AM PSTTelephone Encounter - Dom Bach - 09/01/2015 10:31 AM PSTOutgoing call to patient - Spoke to patient, informed her t hat a future XR order was sent to [facility] and that she needs to have that completed for Dr. Garcia . Patient verbalized understanding and will completed XR Lumbar. elephone Encounter - Chela Alba - 08/28/2015 11:07 AM PSTPatient left message via [employer]: "Returning your call. Please call"Delmis ctronically signed by Chela Alba at 08/28/2015 11:08 AM PSTTelephone Encounter - Dom Smimons - 08/27/2015 4:35 PM PSTAttempted to reach patient to let her know that she nee ds to complete her XR Lumbar. No answer at either phone number listed in [employer] and no opportu nity to leave a VM. elephone Encounter - Dom Bach - 08/27/2015 8:31 AM PSTAttempted to reach patient again. No answer at e ither phone number listed in [employer] and no opportunity to leave a VM. Will try to reach patien t again later today. e lephone Encounter - Dom Bach - 08/25/2015 1:43 PM PSTAttempted to reach patient t o let her know that she needs to have an XR Lumbar done at [facility], as the disk she brought int o the office today had an XR Lumbar done back on December 08, 2014. I confirmed with [facility] diane t they have the XR Lumbar order. I was unable to leave the patient a VM as her VM box has no t been set up at either number we have in [facility] for her. When patient call backs, please let her know that she needs to have an XR Lumbar done at [facility]. Thank you. document ed in this encounter Plan of Treatment Not on filedocumented as of this encounter Visit Diagnoses Not on filedocumented in this encounter
--- OUTSIDE RECORDS SUMMARY | ~2020-05-22 | XMS | Encounter Summary ---
Demographics + + + | Address | [address] | | | [place] [address] | + + + | Home Phone | | + + + | Preferred Language | Unknown | + + + | Marital Status | | + + + | Roman Catholic Affiliation | 1028 | + + + | Race | White | + + + | Ethnic Group | Not or | + + + Author + + + | Author | [facility] | | | and [place] | + + + | Organization | [facility] | | | [...] Team Providers + +------+ + | Care Storm Chaser Name | Role | Phone | + +------+ + | Ethan Solomon MD | PCP | | + +------+ + Encounter Details +--------+ + + + + | Date | Type | Department | Care Team | Description | +--------+ + + + + | 10/24/ | Imaging | [facility] | Provider, | | | 2019 | Exam | [facility] | [address] | | | | | IM[address]ING [address] | [place] | | | | | [address] [place] | [place] [address] | | | | | [place] [address] | | | | | | [phone] | | | +--------+ + + + [...] + +--------+ + + + | CT LUMBAR SPINE WO | Routin | 10/18/2018 | | Results for this | | CONTRAST | e | 1:10 PM | | procedure are in the | | | | PST | | results section. | + +--------+ + + + documented in this encounter Results CT Lumbar Spine wo Contrast (10/18/2018 1:10 PM PST) + + | Specimen | + + | | + + + + + | Narrative | Performed At | + + + | External films for comparison only | [facility] | | | | | No results will be in the chart. | | + + + + +---------+ + + | Performing | Address | City/State/Zipcode | Phone Number | | Organization | | | | + +---------+ + + | [facility] | | | | + +---------+ + + documented in this encounter Visit Diagnoses Not on filedocumented in this encounter"
--- OUTSIDE RECORDS SUMMARY | ~2020-05-22 | XMS | Encounter Summary ---
Demographics + + + | Address | [address] | | | [place] [address] | + + + | Home Phone | | + + + | Preferred Language | Unknown | + + + | Marital Status | | + + + | Tenriism Affiliation | 1028 | + + + | Race | White | + + + | Ethnic Group | Not or | + + + Author + + + | Author | [facility] | | | and [place] | + + + | Organization | [facility] | | | [...] Team Providers + +------+ + | Care Telecommunications Network Engineer Name | Role | Phone | + +------+ + | Ethan Solomon MD | PCP | | + +------+ + Reason for Visit + +--------+ + | Reason | Onset | Comments | | | Date | | + +--------+ + | Imaging Only | 08/17/ | | | | 2016 | | + +--------+ + Encounter Details +--------+ + + + + | Date | Type | Department | Care Team | Description | +--------+ + + + + | 08/17/ | Telephone | [facility] | Aric Wilcox | Imaging Only | | 2017 | | NEUROSURGERY [address] | [address] | | | | | [address] | [address] [place] | | | | | [place] | [id number] | | | | | [address] | | | | | | [phone] | | | +--------+ + + + [...] this encounter Miscellaneous Notes Telephone Encounter - Gallardo, Lillian M, Promotion Manager - 09/26/2017 2:21 PM PSTPatient's son called in and I was able to relay message. He will update patient. No further action required TTelephone Encounter - Lillian Gallardo Promotion Manager - 09/26/2017 2:08 PM PSTCalled pa tient and LVM on Home and Cell#2 phones Unable to LVM on Cell #1. Wanted to update her with Darnell's review of Cervical XR, he had already reviewed the Cervica l MRI and I have closed the duplicate referral. I will follow up next week with a letter if I don't hear back from herElectronically signed by Marcia Cisse at 2:18 PM PSTTelephone Encounter - Aric Wilcox PA-C - 09/26/2017 6:48 AM P STThe patient's hardware and fusion appeared to be stable. Thank you elephone Encounter - Barbara Childs Promotion Manager - 09/25/2017 7:59 AM PSTCervical XR available for review on isite. Elec tronically signed by Marcia Finn at 09/25/2017 8:00 AM PSTTelephone Encounter - Lillian Narayanan Promotion Manager - 09/18/2017 11:06 AM PSTCalled [facility] to verify that cervical xray was completed. Patient completed on 09/13/2017 imaging fax requested for disc. Reminder set to follow up. elephone Encounter - Barbara Childs Medical Assistant - 09/01/2017 10:37 AM PSTCalled to remind the patient that she can complete her c ervical spine XR at [facility]. I spoke with the patient's daughter Doron saenz, who stated she would relay the message to her mother. I advised the patient's daughter Daquan awn to please have Mellisa call our office when she is able to complete her imaging. The han ent's daughter expressed understanding of all the information she was provided and stated sh ifeanyi would relay the message to her mother. elephone Encounter - Lililan Gallardo Promotion Manager - 08/21/2017 3:41 PM PSTCalled patient and was able to relay Darnell's message. Patient is cu rious if she still needs to get the XR C-Spine as ordered? [facility] I have faxed orders to the facility and left reminder to follow up with this next week. Route to Darnell when available to review. Patient does not need to return to clinic elephone Encounter - Aric Wilcox PA-C - 2016 8:35 AM PSTHer MRI does not show any significant stenosis. This is great news.Electro nically signed by Aric Wilcox PA-C at 08/18/2017 8:37 AM PSTTelephone Encounter - Barbara Childs Promotion Manager - 08/17/2017 11:05 AM PSTCalled [facility] to [facility] the [facility]. Imaging completed 08/08/17. Imaging pushed to is ite 08/17/17. documented in this encounter Plan of Treatment Not on filedocumented as of this encounter Visit Diagnoses Not on filedocumented in this encounter"
--- OUTSIDE RECORDS SUMMARY | ~2020-05-22 | XMS | Encounter Summary ---
Demographics + + + | Address | [address] | | | [place] [address] | + + + | Home Phone | | + + + | Preferred Language | Unknown | + + + | Marital Status | | + + + | Mandaeism Affiliation | 1028 | + + + | Race | White | + + + | Ethnic Group | Not or | + + + Author + + + | Author | [facility] | | | and [place] | + + + | Organization | [facility] | | | [...] Team Providers + +------+ + | Care Academic Coach Name | Role | Phone | + [...] Description | +--------+---------+ + + + | 09/25/ | Office | [facility] | Mau Alvarez, | S/P cervical spinal | | 2016 | Visit | NEUROSURGERY [address] | PA-C [address] | fusion (Primary Dx); | | | | [address] | [address] [place] | Lumbar | | | | [place], [place] | [place] [address] | radiculopathy; Facet | | | | [address] | [phone] | arthropathy, lumbar | | | | [phone] | | | +--------+---------+ + + + [...] + + + | Blood Pressure | 143/81 | 09/25/2015 12:13 PM | | | | | PST | | + + + + + | Pulse | 113 | 09/25/2015 12:13 PM | | | | | PST | | + + + + + | Temperature | - | - | | + + + + + | Respiratory Rate | 18 | 09/25/2015 12:13 PM | | | | | PST | | + + + + + | Oxygen Saturation | - | - | | + + + + + | Inhaled Oxygen | - | - | | | Concentration | | | | + + + + + | Weight | 76.2 kg (168 lb) | 09/25/2015 12:13 PM | | | | | PST | | + + + + + | Height | 165.1 cm (5' 5") | 09/25/2015 12:13 PM | | | | | PST | | + + + + + | Body Mass Index | 27.96 | 09/25/2015 12:13 PM | | | | | PST [...] of this encounter Patient Instructions Patient Instructions Mau Alvarez PA - 09/25/2015 12:42 PM PSTAt this point, with res pect tear neck, there are no specific restrictions, you can slowly advance her activities as tolerated. I would encourage you to continue with progressive walking as tolerated. I hav e given you a one-time prescription to help you with your pain. Should we do low back surge ry we will control your pain after this surgery as well. However, in the meantime, pain med ication will need to come from your primary care doctor. I have scheduled you an appointmen t to follow-up with Dr. Hawthorne and discuss possible surgery. documented in this encounter Progress Notes Mau Alvarez PA - 09/25/2015 12:41 PM PSTFormatting of this note might be different f rom the original. GABRIEL Phan [address] [facility], [address] [place], [place] [id number] FAX: NEUROSURGERY FOLLOW-UP CHIEF COMPLAINT: Chief Complaint Patient presents with Follow-up Post op HISTORY OF PRESENT ILLNESS: The patient is a 80 y.o. female that had a C5-C7 fusion by Dr Julio Hawthorne for neck and arm symptoms around 3 months ago. It was known at this time that she als o had low back pain and leg symptoms. However, it was decided upon to pursue her neck patho logy first. She returns and overall is doing well with respect to her neck. However, patie nt still having fairly significant back pain that she rates around a 7 out of 10. Patient i s also having some associated leg symptoms as well. Patient states that she cannot walk mor e than about 10 or 15 minutes. After this she is limited by pain and weakness in her thighs . She has numbness and pain that radiates down the lateral aspect of both legs in an L5 dis tribution. Issues with swallowing have not been a major issue. Most of the pre- and postsu rgical complaints have continued to improve overall. PAST MEDICAL HISTORY: Past Medical History Diagnosis Date DVT of leg (deep venous thrombosis) (HCC) Osteoarthritis Depression Gastric reflux Hypertension Hyperlipidemia Migraine Neuropathy Poor circulation Hypothyroid Full dentures upper & lower PAST SURGICAL HISTORY: Past Surgical History Procedure Laterality Date Hysterectomy Bladder repair x 3 Shoulder arthroscopy Bilateral Cervical spine surgery N/A 04/30/2015 Procedure: C5-6, C6-7 Anterior Cervical Discectomy Fusion; Surgeon: Umer Hawthorne MD; Lo cation: [facility] CURRENT [...] as needed for Pain. 120 tablet 0 levothyroxine (SYNTHROID, LEVOTHROID) 25 mcg [...] Paternal Grandfather INTERIM PHYSICAL EXAMINATION: Blood pressure 143/81, pulse 113, resp. rate 18, height 1.651 m (5' 5"), weight 76.204 kg ( 168 lb), not currently . Body mass index is 27.96 kg/(m^2). GENERAL: Mellisa Bryant Sjurset is in no acute distress with unlabored [...] commands MOTOR EXAM: Motor strength is 5/5. This is improved from the preoperative exam. SENSORY EXAM: The sensory examination improved from [...] compression fracture. ASSESSMENT: Encounter Diagnoses Name Primary? S/P cervical spinal fusion Yes Lumbar radiculopathy Facet arthropathy, lumbar Past Medical History Diagnosis Date DVT of leg (deep venous thrombosis) ([facility]) Osteoarthritis Depression Gastric reflux Hypertension Hyperlipidemia Migraine Neuropathy Poor circulation Hypothyroid Full dentures upper & lower PLAN: Overall, the patient is doing well. She is very happy with results of her surgery her neck . However, she is quite uncomfortable with respect to her low back. Her back symptoms are much more significant than any leg symptoms that she is having. She does feel very limited in her ability to achieve her activities of daily living and feels that her back is signific antly affecting her quality of life. She is hoping that possible surgery may give her simil ar relief of pain as it did in her neck. The patient's preoperative symptoms are improving at this point. I have given her one last refill of pain medication from our office since she ran out. She is aware that in less we do back surgery future pain medication will need to be prescribed by her primary care doctor. I have increased the patient s activities as of today, and I would like the patient to co ntinue to advance with activities as tolerated. I am hoping to see complete healing in the next 3-9 months time and will continue to follow the patient with x-rays. I hope sincerely that she continues to see further improvement in her symptoms over the course of her recover y. I do have her scheduled to see Dr. hawthorne at the next available appointment to discuss possibl e back surgery. I suspect from his previous note that he will focus on a fusion from L4-S1. However, with her primary complaint being back pain there is spondylolisthesis at L2-L3 th at may need attention as well. Specific surgical recommendations will be offered at Dr. hawthorne 's discretion. In the meantime, I have encouraged her to moderate her activities as tolerat ed. She has been instructed of signs and symptoms that would push us to do her surgery more urgently. If these should occur she is to call our office for further instruction. Otherw ise, we will see her at her next scheduled visit with Dr. Hawthorne. The patient will follow-up in around 6 months for re-evaluation. ELECTRONICALLY SIGNED BY: GABRIEL Phan, 09/25/2015 12:42 documented in this encounter Plan of Treatment Not on filedocumented as of this encounter Visit Diagnoses + + | Diagnosis | + + | S/P cervical spinal fusion - Primary Arthrodesis status | + + | Lumbar radiculopathy Thoracic or lumbosacral neuritis or radiculitis, unspecified | + + | Facet arthropathy, lumbar Lumbosacral spondylosis without myelopathy | + + documented in this encounter
--- OUTSIDE RECORDS SUMMARY | ~2020-05-22 | XMS | Encounter Summary ---
Demographics + + + | Address | [address] | | | [place] [address] | + + + | Home Phone | | + + + | Preferred Language | Unknown | + + + | Marital Status | | + + + | Advent Affiliation | 1028 | + + + | Race | White | + + + | Ethnic Group | Not or | + + + Author + + + | Author | [facility] | | | and [place] | + + + | Organization | [facility] | | | and [...] Team Providers + +------+ + | Care Transportation Department Supervisor Name | Role | Phone | + +------+ + PCP | Unavailable | + +------+ + Encounter Details +--------+ + + + + | Date | Type | Department | Care Team | Description | +--------+ + + + + | 07/10/ | Hospital | [facility] | Conversion | Back pain | | 2012 | Encounter | CONVERSION [address] | Transaction, | | | | | [address] | Provider Unknown | | | | | [place] | [phone] | | | | | [address] | | | | | | [phone] | | | +--------+ + + + [...]
--- OUTSIDE RECORDS SUMMARY | ~2020-05-22 | XMS | Encounter Summary ---
Demographics + + + | Address | [address] | | | [place] [address] | + + + | Home Phone | | + + + | Preferred Language | Unknown | + + + | Marital Status | | + + + | Rastafari Affiliation | 1028 | + + + | Race | White | + + + | Ethnic Group | Not or | + + + Author + + + | Author | [facility] | | | and [place] | + + + | Organization | [facility] | | [...] Team Providers + +------+ + | Care Meteorological Equipment Repairer Name | Role | Phone | + +------+ + | Ethan Solomon MD | PCP | | + +------+ + Encounter Details +--------+ + + + + | Date | Type | Department | Care Team | Description | +--------+ + + + + | 01/24/ | Orders Only | [facility] | Sarkis Garcia DNP | | | 2016 | | VASCULAR SURGERY | [address] [place] | | | | | [address] | [place], [place] | | | | | [address] | [address] | | | | | [place], [place] | | | | | | [address] | | | | | | [phone] | | | +--------+ + + + [...]
--- OUTSIDE RECORDS SUMMARY | ~2020-05-22 | XMS | Encounter Summary ---
Demographics + + + | Address | [address] | | | [place] [address] | + + + | Home Phone | | + + + | Preferred Language | Unknown | + + + | Marital Status | | + + + | Restoration Affiliation | 1028 | + + + | Race | White | + + + | Ethnic Group | Not or | + + + Author + + + | Author | [facility] | | | and [place] | + + + | Organization | [facility] | | | [...] Team Providers + +------+ + | Care Invisible Braces Orthodontist Name | Role | Phone | + +------+ + | Ethan Solomon MD | PCP | | + +------+ + Encounter Details +--------+ + + + + | Date | Type | Department | Care Team | Description | +--------+ + + + + | 04/08/ | Orders Only | [facility] | Provider, | | | 2019 | | SYSTEM GENERIC OP | MD [address] | | | | | CONVERSION [address] | [place] [address]. | | | | | [address] [place], [place] | [place] [address] | | | | | [address] | | | | | | [phone] | | | +--------+ + + + [...]
--- OUTSIDE RECORDS SUMMARY | ~2020-05-22 | XMS | Encounter Summary ---
Demographics + + + | Address | [address] | | | [place] [address] | + + + | Home Phone | | + + + | Preferred Language | Unknown | + + + | Marital Status | | + + + | Episcopalian Affiliation | 1028 | + + + [...] Team Providers + +------+ + | Care Filler Picker Name | Role | Phone | + +------+ + | Paul Hogan MD | PCP | | + +------+ + Encounter Details +--------+ + + + + | Date | Type | Department | Care Team | Description | +--------+ + + + + | 10/20/ | Hospital | [facility] | Umer Garcia MD | S/P lumbar fusion | | 2017 | Encounter | MED CTR XRAY [address] | [address] | | | | | [place] | [place] [address] | | | | | [place] [address] | [phone] | | | | | [phone] | | | +--------+ + + + [...] | + + + + + | [facility] | [address] | [place] | [phone] | | [facility] | | [address] | | | - IMAGING | | | | + + + + + documented in this encounter Visit Diagnoses + + | Diagnosis | + + | S/P lumbar fusion Arthrodesis status | + + documented in this encounter"
--- OUTSIDE RECORDS SUMMARY | ~2020-05-22 | XMS | Encounter Summary ---
Demographics + + + | Address | [address] | | | [place] [address] | + + + | Home Phone [...] + + + | Author | [facility] | | | and [place] | + + + | Organization | [facility] | | [...] Team Providers + +------+ + | Care Dike Supervisor Name | Role | Phone | [...] | | [address] | [place] [address] | arthropathy, lumbar; | | | | [place], [place] | [phone] | Chronic bilateral | | | | [address] | | low back pain | | | | [phone] | | without sciatica | +--------+ + [...]
--- OUTSIDE RECORDS SUMMARY | ~2020-05-22 | XMS | Encounter Summary ---
Demographics + + + | Address | [address] | | | [place] [address] | + + + | Home Phone | | + + + | Preferred Language | Unknown | + + + | Marital Status | | + + + | Anabaptism Affiliation | 1028 | + + + [...] Team Providers + +------+ + | Care Tavern Keeper Name | Role | Phone | + [...] | with | [address]. [address] | [place] | | | | | myelopathy, | [place] | [place], | | | | | cervical | [address] | [place] | | | | | region | | [address] | | | | | [phone] | | Phone: | | | | | Procedures | | [phone] | | | | | MRI Cervical | | Fax: | | | | | Spine wo | | [phone] | | | | | Contrast | | | +--------+--------+ + + + + Encounter Details +--------+ + + + + | Date | Type | Department | Care Team | Description | +--------+ + + + + | 08/17/ | Imaging | [facility] | Provider, | | | 2017 | Exam | MED CTR EXTERNAL | Historical, [facility] | | | | | IMAGING [address] | [address] | | | | | [address] [place] | [place] [address] | | | | | [place] [address] | | | | | | [phone] | | | +--------+ + + + [...] for comparison only - no result from [place]. | | + + + + +---------+ + + | Performing | Address | City/State/Zipcode | Phone Number | | Organization | | | | + +---------+ + + | [facility] | | | | + +---------+ + + documented in this encounter Visit Diagnoses Not on filedocumented in this encounter"
--- OUTSIDE RECORDS SUMMARY | ~2020-05-22 | XMS | Encounter Summary ---
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 | [place] | [phone] | | [facility] | | [address] | | | - IMAGING | | [...]
--- OUTSIDE RECORDS SUMMARY | ~2020-05-22 | XMS | Encounter Summary ---
Demographics + + + | Address | [address] | | | [place] [address] | + + + | Home Phone [...] Team Providers + +------+ + | Care Director Dance Name | Role | Phone | + +------+ + | Ethan Solomon MD | PCP | | + +------+ + Encounter Details +--------+ + + + + | Date | Type | Department | Care Team | Description | +--------+ + + + + | 11/14/ | Orders Only | [facility] | Sarkis Garcia DNP | | | 2017 | | VASCULAR SURGERY | [address] [place] | | | | | [address] | [place], [place] | | | | | [address] | [address] | | | | | [place], [place] | | | | | | [address] | | | | | | [phone] | | | +--------+ + + + [...]
--- OUTSIDE RECORDS SUMMARY | ~2020-05-22 | XMS | Encounter Summary ---
Demographics + + + | Address | [address] | | | [place] [address] | + + + | Home Phone [...] Team Providers + +------+ + | Care Moderate Needs Teacher Name | Role | Phone | + +------+ + | Ethan Solomon MD | PCP | | + +------+ + Encounter Details +--------+ + + + + | Date | Type | Department | Care Team | Description | +--------+ + + + + | 01/23/ | Hospital | [facility] | Conversion | Injury of left | | 2018 | Encounter | [facility]ICAL [facility]ENTER | Transaction, | axillary artery, | | | | [address] | Provider Unknown | subsequent encounter | | | | [address] | | | | | | [place], [place] | (Fax) | | | | | [address] | | | | | | [phone] | | | +--------+ + + + [...] + + + +---------+ + + | allopurinol | Take 300 mg by mouth | | 0 | 05/09/20 | | | (ZYLOPRIM) 300 mg | Daily. | | | 17 | 9 | | tablet | | [...] + + + +---------+ + + | clopidogrel | Take 75 mg by mouth | | 0 | 01/25/20 | | | (PLAVIX) 75 mg | Daily. | | | 17 | 8 | | tablet | | | | [...] tablet by | 2 | 0 | 08/07/20 | | | 0.5 mg tablet | mouth once as needed | tablet | | 17 | 9 | | | for Anxiety or | [...] 1 tablet by | | 0 | 07/14/20 | | | oxyCODONE-acetaminop | mouth as needed. | | | 17 | 9 | | hen (PERCOCET) | | | | | | | 10-325 mg per [...] + +--------+ + + + | US GUIDED PROCEDURE | Routin | 01/23/2018 | | Results for this | | | e | 10:02 AM | | procedure are in the | | | | PDT | | results section. | + +--------+ + + + documented in this encounter Results US Guided Procedure (01/23/2018 10:02 AM PDT) + + | Specimen | + + | | + + + + + | Impressions | Performed At | + + + | 1. Technically successful ultrasound-guided seroma aspiration in | | | the left groin. Electronically signed by Sterling Gann DO on | | | 01/23/2018 12:55 PM | | + + + + + + | Narrative | Performed At | + + + | [facility] US GUIDANCE HISTORY: Left groin seroma. | | | TECHNIQUE: The procedure along with its risks and benefits were | | | discussed with the patient and informed consent was obtained. Prior to | | | the procedure and imaging the appropriate side and site was selected | | | and marked. The left groin was sterilely prepped, draped, and | | | anesthetized with 1% lidocaine. An 18-gauge needle was advanced into | | | the small fluid collection in the left groin under ultrasound | | | guidance. 25 cc of clear yellow fluid was aspirated. The needle was | | | removed and the patient tolerated the procedure well without | | | immediate complication. | | + + + + + | Procedure Note | + + | Aleksander Torres Conversion - 04/24/2019 7:07 AM PDT [facility] | | HISTORY:Left groin seroma. TECHNIQUE:The procedure along with its risks and benefits | | were discussed with the patient and informed consent was obtained. Prior to the | | procedure and imaging the appropriate side and site was selected and marked. The left | | groin was sterilely prepped, draped, and anesthetized with 1% lidocaine. An 18-gauge | | needle was advanced into the small fluid collection in the left groin under ultrasound | | guidance. 25 cc of clear yellow fluid was aspirated. The needle was removed and the | | patient tolerated the procedure well without immediate complication. IMPRESSION: 1. | | Technically successful ultrasound-guided seroma aspiration in the left groin. | | | |patient tolerated the procedure well | |without immediate complication. | | | |IMPRESSION: | |1. Technically successful ultrasound-guided seroma aspiration in the left groin. | | | | | + + documented in this encounter Visit Diagnoses + + | Diagnosis | + + | Injury of left axillary artery, subsequent encounter | + + documented in this encounter"
--- OUTSIDE RECORDS SUMMARY | ~2020-05-22 | XMS | Encounter Summary ---
Demographics + + + | Address | [address] | | | [place] [address] | + + + | Home Phone [...] + + + | Author | [facility] | | | and [place] | + + + | Organization | [facility] | | [...] Team Providers + +------+ + | Care Shipping Point Inspector Name | Role | Phone | + +------+ + PCP | Unavailable | + +------+ + Encounter Details +--------+ + + + + | Date | Type | Department | Care Team | Description | +--------+ + + + + | 01/23/ | Hospital | [facility] | Conversion | Extremity | | 2012 | Encounter | [facility] | Transaction, | atherosclerosis with | | | | CLINICAL DECISION | Provider Unknown | resting pain (HCC); | | | | [address] | [phone] | Hypertension | | | | [place], [place] | | | | | | [address] | Derrell Arellano, | | | | | [phone] | MD [address] | | | | | [address] [place], [place] | | | | | | [address] | | | | | | | [...] Progress Notes Conversion Transaction, Provider Unknown - 01/23/2013 6:00 PM PDTFormatting of this note m ight be different from the original. Progress Notes by Mulu Reyes RN at 01/23/131799 Author: Mulu Reyes RN Service: (none) Author Type: Registered Nurse Filed: 01/23/131800 Date of Service: 01/23/131799 Status: Signed Air Tank Assembler: Mulu Reyes RN (Registered Nurse) Pt discharged home with daughter. All discharge instructions and prescriptions were reviewe d and signed. Pt states that she has no further questions or concerns at this time. VSS and IV removed. Pt escorted to private car via wheelchair. docume nted in this encounter H&P Notes Romulo Arellano MD, MD - 01/23/2013 10:42 AM PDTFormatting of this note might be diffe rent from the original. H&P by Derrell Arellano MD at 01/23/13 1042 Author: Derrell Arellano MD Service: (none) Author Type: Physician Filed: 01/23/13 1046 Date of Service: 01/23/131041 Status: Signed Air Tank Assembler: Derrell Arellano MD (Physician) [facility] Service: Interventional Radiology Admission History & Physical Date of Admission: 01/23/2013 Reason for Admission: Rest pain History Obtained From: patient, chart review CHIEF COMPLAINT: Left LE rest pain. HISTORY OF PRESENT ILLNESS HPI: She is a pleasant 78 yr old white female with h/o left foot numness and pain, worse wi th lying down and walking. She denies calf claudication. NBo ulcers. She does have cool foot . She has tried to walk and perform staionary biking without success due to SOB with exertio n. She denies any smoking. REVIEW OF SYSTEMS REVIEW OF SYSTEMS:. General: No weight change, generally healthy, no change in strength o r exercise tolerance. Head: No headaches, has vertigo, no injury. Eyes: Normal vision, n o diplopia, no tearing, no scotomata, no pain. Ears: No change in hearing, no tinnitus, no bleeding, no vertigo. Nose: No epistaxis, no coryza, no obstruction, no discharge. Mout h: No dental difficulties, no gingival bleeding, no use of dentures. Neck: No stiffness, n o pain, no tenderness, no noted masses. Chest: No dyspnea, no wheezing, no hemoptysis, no cough. Has hypertension. Heart: No chest pains, no palpitations, no syncope, no orthopnea. Abdomen: No change in appetite, no dysphagia, no abdominal pains, no bowel habit changes, no emesis, no melena. : No urinary urgency, no dysuria, no change in nature of urine. Has incontinence.Musculoskeletal: No pain in muscles or joints, no limitation of range of m otion, no paresthesias or numbness. Left arm weakness and back pain.Neurologic: No weaknes s, no tremor, no seizures, no changes in mentation, no ataxia. Psychiatric: Has depressive symptoms, has poor sleep, no changes in thought content. Past Medical History Diagnosis Date Allergic rhinitis, cause unspecified Anxiety Peripheral vascular disease Sleep apnea Past Surgical History Procedure Date Hysterectomy Hiatal hernia repair Appendectomy Allergies Allergen Reactions Codeine Rash Penicillins Rash Prescriptions prior to admission Medication Sig Dispense Refill benazepril (LOTENSIN) 20 MG tablet Take 20 mg by mouth daily. Cholecalciferol (D3 ADULT PO) Take by mouth. diclofenac (CATAFLAM) 50 MG tablet Take 50 mg by mouth 3 (three) times daily. Flaxseed, Linseed, 1000 MG CAPS Take by mouth. gabapentin (NEURONTIN) 250 MG/5ML solution Take by mouth 3 (three) times daily. Melatonin 10 MG TABS Take by mouth. omeprazole (PRILOSEC) 20 MG capsule Take 20 mg by mouth daily. paroxetine (PAXIL) 10 MG tablet Take 10 mg by mouth every morning. pravastatin (PRAVACHOL) 20 MG tablet Take 20 mg by mouth daily. vitamin B-12 (CYANOCOBALAMIN) 1000 MCG tablet Take 1,000 mcg by mouth daily. No family history on file. History Social History Marital Status: Spouse Name: N/A Number of Children: N/A Years of Education: N/A Occupational History Not on file. Social History Main Topics Smoking status: Not on file Smokeless tobacco: Not on file Alcohol Use: Not on file Drug Use: Not on file Sexually Active: Not on file Other Topics Concern Not on file Social History Narrative No narrative on file PHYSICAL EXAM Vital Signs: BP 182/88 | Pulse 67 | Temp 97.4 F (36.3 C) | Resp 16 | Ht 1.651 m (5' 5") | Wt 73.483 kg (162 lb) | BMI 26.96 kg/m2 | SpO2 98% PHYSICAL EXAM:General appearance: alert, appears stated age and cooperativeHead: Normocepha lic, without obvious abnormality, atraumaticEyes: conjunctivae/corneas clear. PERRL, EOM's i ntact. Fundi benign.Ears: normal TM's and external ear canals both earsNose: Nares normal. S eptum midline. Mucosa normal. No drainage or sinus tenderness.Throat: lips, mucosa, and tong ue normal; teeth and gums normalNeck: no adenopathy, no carotid bruit, no JVD, supple, symme trical, trachea midline and thyroid not enlarged, symmetric, no tenderness/mass/nodulesLungs : clear to auscultation bilaterallyHeart: regular rate and rhythm, S1, S2 normal, no murmur, click, rub or gallopAbdomen: soft, non-tender; bowel sounds normal; no masses, no organome estela. Distended from obese status.Musculoskeletal: There is no redness, warmth, or swelling of the joints. Full range of motion noted. Motor strength is 5 out of 5 all extremities b ilaterally. Tone is normal.Extremities: extremities normal, atraumatic, no cyanosis or ben a. Interdigital webspaces intact.PULSES: RIGHT: WEED CUTTER 2, Popliteal 1, PT 0, DP 0. LEFT: WEED CUTTER 2, Popliteal 0, PT 0, DP 0.Skin: Skin color, texture, turgor normal. No rashes or lesionsNeuro logic: Grossly normal. DATA CBC: Lab Results Component Value Date WBC 4.0 01/23/2013 RBC 3.67* 01/23/2013 HGB 11.6 01/23/2013 HCT 34.3 01/23/2013 MCV 93.3 01/23/2013 MCH 31.7 01/23/2013 MCHC 34.0 01/23/2013 RDW 42.4 01/23/2013 PLT 126* 01/23/2013 MPV 7.2 01/23/2013 BMP: Lab Results Component Value Date NA 142 01/23/2013 K 4.4 01/23/2013 CL 106 01/23/2013 CO2 29 01/23/2013 ANIONGAP 13 01/23/2013 GLUF 103* 01/23/2013 BUN 30* 01/23/2013 CREATININE 0.96 01/23/2013 BCR 32 01/23/2013 CA 9.3 01/23/2013 EGFR >60 01/23/2013 PT/INR: Lab Results Component Value Date INR 0.9 01/23/2013 PTT: Lab Results Component Value Date APTT 27 01/23/2013 [APTT PROBLEM LIST Active Problems: * No active hospital problems. 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 She has failed medical m anagement and needs angiogram to decide the extent of disease. Consent: We discussed the pro cedure, risks (bleeding, infection, need for transfusion, surgery, embolization, stroke, [place] and ) and alternatives with the patient. She understood the discussion and expressed h er wish to proceed. Disposition: Cathlab. Code Status: Prior Primary Care Physician: No primary provider on file. DERRELL ARELLANO MD 01/23/2013 documented i n this encounter Plan of Treatment Not on filedocumented as of this encounter Procedures + +--------+ + + + | Procedure Name | Priori | Date/Time | Associated Diagnosis | Comments | | | ty | | | | + +--------+ + + + | IR AORTOGRAM | Routin | 01/23/2013 | | Results for this | | ABDOMINAL W RUNOFF | e | 12:27 PM | | procedure are in the | | | | PDT | | results section. | + +--------+ + + + | IR ANGIOPLASTY FEM | Routin | 01/23/2013 | | Results for this | | POP | e | 12:27 PM | | procedure are in the | | | | PDT | | results section. | + +--------+ + + + | IR ANGIO UPPER/LOWER | Routin | 01/23/2013 | | Results for this | | EXTREMITY | e | 12:27 PM | | procedure are in the | | | | PDT | | results section. | + +--------+ + + + | US GUIDED VASCULAR | Routin | 01/23/2013 | | Results for this | | ACCESS | e | 12:26 PM | | procedure are in the | | | | PDT | | results section. | + +--------+ + + + documented in this encounter Results IR Angioplasty Fem Pop (01/23/2013 12:27 PM PDT) + + | Specimen | + + | | + + + + + | Narrative | Performed At | + + + | [facility] ANGIO[facility] EXTREMITY BILATERAL 01/23/2013 10:42 AM | | | HISTORY: 78 years. Female. Left lower extremity rest pain | | | more than the right. MEDICATIONS: Isovue 250 95 cc, | | | heparin 3000 units intravenous, Versed 4 milligram intravenous, | | | Fentanyl 150 microgram intravenous. Radiation dose 150 Candy Oconnell. | | | Fluoroscopy time 5.7 minutes. Intra procedure sedation time 50 | | | minutes. Appropriate physiologic monitoring, maintenance of | | | adequate conscious sedation and independent jail | | | supervision performed throughout the procedure. No adverse drug | | | reactions. PROCEDURE: Informed written consent obtained | | | from the patient after explaining the procedure, risks and | | | alternatives. Patient understood the discussion and expressed her | | | wish to proceed. The appropriate side and site was labeled and | | | initialed as an independent process antecedent to the imaging and | | | intervention, as per protocol at this institution.? Patient was | | | placed supine on the x-ray table. Right groin prepped in the usual | | | sterile fashion. Skin and subcutaneous tissues infiltrated with 1% | | | lidocaine. Right common femoral artery was localized under | | | real-time sonographic guidance and accessed using micropuncture | | | needle and exchanged for 4-Malaysian micropuncture sheath over 0.018 | | | wire. 4-Malaysian micropuncture sheath was exchanged for 4-Malaysian by | | | 11-cm sheath over 0.035, 3-mm J-wire. Subsequently, 4-Malaysian Omni | | | flush catheter placed with its tip at the L1 vertebral level and | | | abdominal pelvic arteriogram obtained in frontal projection. | | | Subsequently, catheter was repositioned at the L3 vertebral level | | | and bilateral lower extremity arteriogram obtained in bolus mariluz | | | fashion. Then, Omni flush catheter was advanced over 0.035 angled | | | Glidewire with its tip in the left common femoral artery. Given the | | | hemodynamically significant stenosis in proximal and mid left | | | popliteal artery and we decided to perform endovascular intervention. | | | 4-Malaysian Omni flush catheter was exchanged for 0.035, Martinez wire | | | with its tip in proximal left superficial femoral artery. | | | Subsequently, catheter was removed and 4-Malaysian by 11 cm sheath was | | | exchanged for 5-Malaysian by 45-cm destination sheath with its tip in | | | proximal left superficial femoral artery. Subsequently, using | | | combination of 4-Malaysian vertebral catheter and 0.035, Martinez wire both | | | were advanced to distal left popliteal artery. Subsequently, | | | vertebral catheter was exchanged for 5 mm x 10 cm balloon catheter | | | and balloon angioplasty of the proximal left popliteal artery | | | performed. Post angioplasty left leg arteriogram obtained. All | | | catheters and wires were removed and right groin hemostasis obtained | | | using Mynx closure device. Patient tolerated the procedure with no | | | procedural complications. FINDINGS: 1. Real-time image | | | documenting the entry of micropuncture needle into the widely patent | | | right common femoral artery was obtained and copy of the image placed | | | in patient's medical records. 2. Abdominal aortogram: Single right | | | renal artery and two left renal arteries are widely patent. Diffuse | | | calcification of the aortoiliac vessels. Both common, internal and | | | external iliac arteries are widely patent. 3. Right lower extremity | | | arteriogram: Right common femoral artery, right superficial femoral | | | artery, profunda femoris artery and its branches are widely patent. | | | Right popliteal artery shows lese than 50% multifocal stenosis. | | | Anterior tibial artery, tibioperoneal trunk and peroneal artery | | | are patent to right foot. Proximal occlusion of the posterior tibial | | | artery with reconstitution at the level of right ankle. 4. Left | | | lower extremity arteriogram: Left common femoral artery, left | | | superficial femoral artery, profunda femoris artery and its branches | | | are widely patent. 7 cm, segmental, diffuse, more than 70%, | | | hemodynamically significant stenosis and proximal half of the left | | | popliteal artery with the prominent collaterals around it. Distal | | | left popliteal artery is widely patent. Anterior tibial artery, | | | tibioperoneal trunk and peroneal artery are patent the left foot. | | | Reconstitution of the occluded left posterior tibial artery at the | | | level of left ankle. Successful angioplasty of the significant | | | stenosis in left proximal popliteal artery without significant | | | residual stenosis. IMPRESSION: 1. Successful abdominal | | | aortogram and bilateral lower extremity runoff the shows bilateral | | | two-vessel runoff. 2. Significant segmental stenosis involving left | | | the popliteal artery which is treated using 5-mm balloon angioplasty | | | with no residual anatomic stenosis. 3. Patient to be started on | | | oral Plavix for 6 months. 4. Return to clinic after two weeks to | | | evaluate presence of any residual rest pain and the presence of | | | neurologic component to her rest pain in feet. Electronically | | | signed by Derrell Arellano MD on 01/23/2013 2:52 PM | | + + + + + | Procedure Note | + + | Brian, Rad Conversion - 05/03/2019 6:12 PM PDT [facility] EXTREM[facility] | | BILATERAL01/23/2013 10:42 AM HISTORY:78 years. Female. Left lower extremity rest pain | | more than the right. MEDICATIONS: Isovue 250 95 cc, heparin 3000 units intravenous, | | Versed 4 milligram intravenous, Fentanyl 150 microgram intravenous. Radiation dose 150 | | Candy Oconnell. Fluoroscopy time 5.7 minutes. Intra procedure sedation time 50 minutes. | | Appropriate physiologic monitoring, maintenance of adequate conscious sedation and | | independent jail supervision performed throughout the procedure. No adverse | | drug reactions. PROCEDURE:Informed written consent obtained from the patient after | | explaining the procedure, risks and alternatives. Patient understood the discussion and | | expressed her wish to proceed. The appropriate side and site was labeled and initialed | | as an independent process antecedent to the imaging and intervention, as per protocol at | | this institution.? Patient was placed supine on the x-ray table. Right groin prepped in | | the usual sterile fashion. Skin and subcutaneous tissues infiltrated with 1% | | lidocaine. Right common femoral artery was localized under real-time sonographic | | guidance and accessed using micropuncture needle and exchanged for 4-Malaysian | | micropuncture sheath over 0.018 wire. 4-Malaysian micropuncture sheath was exchanged for | | 4-Malaysian by 11-cm sheath over 0.035, 3-mm J-wire. Subsequently, 4-Malaysian Omni flush | | catheter placed with its tip at the L1 vertebral level and abdominal pelvic arteriogram | | obtained in frontal projection. Subsequently, catheter was repositioned at the L3 | | vertebral level and bilateral lower extremity arteriogram obtained in bolus mariluz | | fashion. Then, Omni flush catheter was advanced over 0.035 angled Glidewire with its | | tip in the left common femoral artery. Given the hemodynamically significant stenosis | | in proximal and mid left popliteal artery and we decided to perform endovascular | | intervention. 4-Malaysian Omni flush catheter was exchanged for 0.035, Martinez wire with its | | tip in proximal left superficial femoral artery. Subsequently, catheter was removed and | | 4-Malaysian by 11 cm sheath was exchanged for 5-Malaysian by 45-cm destination sheath with | | its tip in proximal left superficial femoral artery. Subsequently, using combination of | | 4-Malaysian vertebral catheter and 0.035, Martinez wire both were advanced to distal left | | popliteal artery. Subsequently, vertebral catheter was exchanged for 5 mm x 10 cm | | balloon catheter and balloon angioplasty of the proximal left popliteal artery | | performed. Post angioplasty left leg arteriogram obtained. All catheters and wires were | | removed and right groin hemostasis obtained using Mynx closure device. Patient | | tolerated the procedure with no procedural complications. FINDINGS:1. Real-time image | | documenting the entry of micropuncture needle into the widely patent right common | | femoral artery was obtained and copy of the image placed in patient's medical records.2. | | Abdominal aortogram: Single right renal artery and two left renal arteries are widely | | patent. Diffuse calcification of the aortoiliac vessels. Both common, internal and | | external iliac arteries are widely patent.3. Right lower extremity arteriogram: Right | | common femoral artery, right superficial femoral artery, profunda femoris artery and its | | branches are widely patent. Right popliteal artery shows lese than 50% multifocal | | stenosis. Anterior tibial artery, tibioperoneal trunk and peroneal artery are patent to | | right foot. Proximal occlusion of the posterior tibial artery with reconstitution at | | the level of right ankle.4. Left lower extremity arteriogram: Left common femoral | | artery, left superficial femoral artery, profunda femoris artery and its branches are | | widely patent. 7 cm, segmental, diffuse, more than 70%, hemodynamically significant | | stenosis and proximal half of the left popliteal artery with the prominent collaterals | | around it. Distal left popliteal artery is widely patent. Anterior tibial artery, | | tibioperoneal trunk and peroneal artery are patent the left foot. Reconstitution of the | | occluded left posterior tibial artery at the level of left ankle.Successful angioplasty | | of the significant stenosis in left proximal popliteal artery without significant | | residual stenosis. IMPRESSION:1. Successful abdominal aortogram and bilateral lower | | extremity runoff the shows bilateral two-vessel runoff.2. Significant segmental | | stenosis involving left the popliteal artery which is treated using 5-mm balloon | | angioplasty with no residual anatomic stenosis.3. Patient to be started on oral Plavix | | for 6 months.4. Return to clinic after two weeks to evaluate presence of any residual | | rest pain and the presence of neurologic component to her rest pain in feet. | | | + + IR Angio Upper/Lower Extremity (01/23/2013 12:27 PM PDT) + + | Specimen | + + | | + + + + + | Narrative | Performed At | + + + | [facility] ANG[facility] EXTREMITY BILATERAL 01/23/2013 10:42 AM | | | HISTORY: 78 years. Female. Left lower extremity rest pain | | | more than the right. MEDICATIONS: Isovue 250 95 cc, | | | heparin 3000 units intravenous, Versed 4 milligram intravenous, | | | Fentanyl 150 microgram intravenous. Radiation dose 150 Candy Oconnell. | | | Fluoroscopy time 5.7 minutes. Intra procedure sedation time 50 | | | minutes. Appropriate physiologic monitoring, maintenance of | | | adequate conscious sedation and independent jail | | | supervision performed throughout the procedure. No adverse drug | | | reactions. PROCEDURE: Informed written consent obtained | | | from the patient after explaining the procedure, risks and | | | alternatives. Patient understood the discussion and expressed her | | | wish to proceed. The appropriate side and site was labeled and | | | initialed as an independent process antecedent to the imaging and | | | intervention, as per protocol at this institution.? Patient was | | | placed supine on the x-ray table. Right groin prepped in the usual | | | sterile fashion. Skin and subcutaneous tissues infiltrated with 1% | | | lidocaine. Right common femoral artery was localized under | | | real-time sonographic guidance and accessed using micropuncture | | | needle and exchanged for 4-Malaysian micropuncture sheath over 0.018 | | | wire. 4-Malaysian micropuncture sheath was exchanged for 4-Malaysian by | | | 11-cm sheath over 0.035, 3-mm J-wire. Subsequently, 4-Malaysian Omni | | | flush catheter placed with its tip at the L1 vertebral level and | | | abdominal pelvic arteriogram obtained in frontal projection. | | | Subsequently, catheter was repositioned at the L3 vertebral level | | | and bilateral lower extremity arteriogram obtained in bolus mariluz | | | fashion. Then, Omni flush catheter was advanced over 0.035 angled | | | Glidewire with its tip in the left common femoral artery. Given the | | | hemodynamically significant stenosis in proximal and mid left | | | popliteal artery and we decided to perform endovascular intervention. | | | 4-Malaysian Omni flush catheter was exchanged for 0.035, Martinez wire | | | with its tip in proximal left superficial femoral artery. | | | Subsequently, catheter was removed and 4-Malaysian by 11 cm sheath was | | | exchanged for 5-Malaysian by 45-cm destination sheath with its tip in | | | proximal left superficial femoral artery. Subsequently, using | | | combination of 4-Malaysian vertebral catheter and 0.035, Martinez wire both | | | were advanced to distal left popliteal artery. Subsequently, | | | vertebral catheter was exchanged for 5 mm x 10 cm balloon catheter | | | and balloon angioplasty of the proximal left popliteal artery | | | performed. Post angioplasty left leg arteriogram obtained. All | | | catheters and wires were removed and right groin hemostasis obtained | | | using Mynx closure device. Patient tolerated the procedure with no | | | procedural complications. FINDINGS: 1. Real-time image | | | documenting the entry of micropuncture needle into the widely patent | | | right common femoral artery was obtained and copy of the image placed | | | in patient's medical records. 2. Abdominal aortogram: Single right | | | renal artery and two left renal arteries are widely patent. Diffuse | | | calcification of the aortoiliac vessels. Both common, internal and | | | external iliac arteries are widely patent. 3. Right lower extremity | | | arteriogram: Right common femoral artery, right superficial femoral | | | artery, profunda femoris artery and its branches are widely patent. | | | Right popliteal artery shows lese than 50% multifocal stenosis. | | | Anterior tibial artery, tibioperoneal trunk and peroneal artery | | | are patent to right foot. Proximal occlusion of the posterior tibial | | | artery with reconstitution at the level of right ankle. 4. Left | | | lower extremity arteriogram: Left common femoral artery, left | | | superficial femoral artery, profunda femoris artery and its branches | | | are widely patent. 7 cm, segmental, diffuse, more than 70%, | | | hemodynamically significant stenosis and proximal half of the left | | | popliteal artery with the prominent collaterals around it. Distal | | | left popliteal artery is widely patent. Anterior tibial artery, | | | tibioperoneal trunk and peroneal artery are patent the left foot. | | | Reconstitution of the occluded left posterior tibial artery at the | | | level of left ankle. Successful angioplasty of the significant | | | stenosis in left proximal popliteal artery without significant | | | residual stenosis. IMPRESSION: 1. Successful abdominal | | | aortogram and bilateral lower extremity runoff the shows bilateral | | | two-vessel runoff. 2. Significant segmental stenosis involving left | | | the popliteal artery which is treated using 5-mm balloon angioplasty | | | with no residual anatomic stenosis. 3. Patient to be started on | | | oral Plavix for 6 months. 4. Return to clinic after two weeks to | | | evaluate presence of any residual rest pain and the presence of | | | neurologic component to her rest pain in feet. Electronically | | | signed by Derrell Arellano MD on 01/23/2013 2:52 PM | | + + + + + | Procedure Note | + + | Brian, Rad Conversion - 05/03/2019 6:12 PM PDT [facility] ANGIOGRAM EXTREMITY | | BILATERAL01/23/2013 10:42 AM HISTORY:78 years. Female. Left lower extremity rest pain | | more than the right. MEDICATIONS: Isovue 250 95 cc, heparin 3000 units intravenous, | | Versed 4 milligram intravenous, Fentanyl 150 microgram intravenous. Radiation dose 150 | | Candy Oconnell. Fluoroscopy time 5.7 minutes. Intra procedure sedation time 50 minutes. | | Appropriate physiologic monitoring, maintenance of adequate conscious sedation and | | independent jail supervision performed throughout the procedure. No adverse | | drug reactions. PROCEDURE:Informed written consent obtained from the patient after | | explaining the procedure, risks and alternatives. Patient understood the discussion and | | expressed her wish to proceed. The appropriate side and site was labeled and initialed | | as an independent process antecedent to the imaging and intervention, as per protocol at | | this institution.? Patient was placed supine on the x-ray table. Right groin prepped in | | the usual sterile fashion. Skin and subcutaneous tissues infiltrated with 1% | | lidocaine. Right common femoral artery was localized under real-time sonographic | | guidance and accessed using micropuncture needle and exchanged for 4-Malaysian | | micropuncture sheath over 0.018 wire. 4-Malaysian micropuncture sheath was exchanged for | | 4-Malaysian by 11-cm sheath over 0.035, 3-mm J-wire. Subsequently, 4-Malaysian Omni flush | | catheter placed with its tip at the L1 vertebral level and abdominal pelvic arteriogram | | obtained in frontal projection. Subsequently, catheter was repositioned at the L3 | | vertebral level and bilateral lower extremity arteriogram obtained in bolus mariluz | | fashion. Then, Omni flush catheter was advanced over 0.035 angled Glidewire with its | | tip in the left common femoral artery. Given the hemodynamically significant stenosis | | in proximal and mid left popliteal artery and we decided to perform endovascular | | intervention. 4-Malaysian Omni flush catheter was exchanged for 0.035, Martinez wire with its | | tip in proximal left superficial femoral artery. Subsequently, catheter was removed and | | 4-Malaysian by 11 cm sheath was exchanged for 5-Malaysian by 45-cm destination sheath with | | its tip in proximal left superficial femoral artery. Subsequently, using combination of | | 4-Malaysian vertebral catheter and 0.035, Martinez wire both were advanced to distal left | | popliteal artery. Subsequently, vertebral catheter was exchanged for 5 mm x 10 cm | | balloon catheter and balloon angioplasty of the proximal left popliteal artery | | performed. Post angioplasty left leg arteriogram obtained. All catheters and wires were | | removed and right groin hemostasis obtained using Mynx closure device. Patient | | tolerated the procedure with no procedural complications. FINDINGS:1. Real-time image | | documenting the entry of micropuncture needle into the widely patent right common | | femoral artery was obtained and copy of the image placed in patient's medical records.2. | | Abdominal aortogram: Single right renal artery and two left renal arteries are widely | | patent. Diffuse calcification of the aortoiliac vessels. Both common, internal and | | external iliac arteries are widely patent.3. Right lower extremity arteriogram: Right | | common femoral artery, right superficial femoral artery, profunda femoris artery and its | | branches are widely patent. Right popliteal artery shows lese than 50% multifocal | | stenosis. Anterior tibial artery, tibioperoneal trunk and peroneal artery are patent to | | right foot. Proximal occlusion of the posterior tibial artery with reconstitution at | | the level of right ankle.4. Left lower extremity arteriogram: Left common femoral | | artery, left superficial femoral artery, profunda femoris artery and its branches are | | widely patent. 7 cm, segmental, diffuse, more than 70%, hemodynamically significant | | stenosis and proximal half of the left popliteal artery with the prominent collaterals | | around it. Distal left popliteal artery is widely patent. Anterior tibial artery, | | tibioperoneal trunk and peroneal artery are patent the left foot. Reconstitution of the | | occluded left posterior tibial artery at the level of left ankle.Successful angioplasty | | of the significant stenosis in left proximal popliteal artery without significant | | residual stenosis. IMPRESSION:1. Successful abdominal aortogram and bilateral lower | | extremity runoff the shows bilateral two-vessel runoff.2. Significant segmental | | stenosis involving left the popliteal artery which is treated using 5-mm balloon | | angioplasty with no residual anatomic stenosis.3. Patient to be started on oral Plavix | | for 6 months.4. Return to clinic after two weeks to evaluate presence of any residual | | rest pain and the presence of neurologic component to her rest pain in feet. | | | + + IR Aortogram Abdominal w Runoff (01/23/2013 12:27 PM PDT) + + | Specimen | + + | | + + + + + | Narrative | Performed At | + + + | [facility] ANGIOGRAM EXTREMITY BILATERAL 01/23/2013 10:42 AM | | | HISTORY: 78 years. Female. Left lower extremity rest pain | | | more than the right. MEDICATIONS: Isovue 250 95 cc, | | | heparin 3000 units intravenous, Versed 4 milligram intravenous, | | | Fentanyl 150 microgram intravenous. Radiation dose 150 Candy Oconnell. | | | Fluoroscopy time 5.7 minutes. Intra procedure sedation time 50 | | | minutes. Appropriate physiologic monitoring, maintenance of | | | adequate conscious sedation and independent jail | | | supervision performed throughout the procedure. No adverse drug | | | reactions. PROCEDURE: Informed written consent obtained | | | from the patient after explaining the procedure, risks and | | | alternatives. Patient understood the discussion and expressed her | | | wish to proceed. The appropriate side and site was labeled and | | | initialed as an independent process antecedent to the imaging and | | | intervention, as per protocol at this institution.? Patient was | | | placed supine on the x-ray table. Right groin prepped in the usual | | | sterile fashion. Skin and subcutaneous tissues infiltrated with 1% | | | lidocaine. Right common femoral artery was localized under | | | real-time sonographic guidance and accessed using micropuncture | | | needle and exchanged for 4-Malaysian micropuncture sheath over 0.018 | | | wire. 4-Malaysian micropuncture sheath was exchanged for 4-Malaysian by | | | 11-cm sheath over 0.035, 3-mm J-wire. Subsequently, 4-Malaysian Omni | | | flush catheter placed with its tip at the L1 vertebral level and | | | abdominal pelvic arteriogram obtained in frontal projection. | | | Subsequently, catheter was repositioned at the L3 vertebral level | | | and bilateral lower extremity arteriogram obtained in bolus mariluz | | | fashion. Then, Omni flush catheter was advanced over 0.035 angled | | | Glidewire with its tip in the left common femoral artery. Given the | | | hemodynamically significant stenosis in proximal and mid left | | | popliteal artery and we decided to perform endovascular intervention. | | | 4-Malaysian Omni flush catheter was exchanged for 0.035, Martinez wire | | | with its tip in proximal left superficial femoral artery. | | | Subsequently, catheter was removed and 4-Malaysian by 11 cm sheath was | | | exchanged for 5-Malaysian by 45-cm destination sheath with its tip in | | | proximal left superficial femoral artery. Subsequently, using | | | combination of 4-Malaysian vertebral catheter and 0.035, Martinez wire both | | | were advanced to distal left popliteal artery. Subsequently, | | | vertebral catheter was exchanged for 5 mm x 10 cm balloon catheter | | | and balloon angioplasty of the proximal left popliteal artery | | | performed. Post angioplasty left leg arteriogram obtained. All | | | catheters and wires were removed and right groin hemostasis obtained | | | using Mynx closure device. Patient tolerated the procedure with no | | | procedural complications. FINDINGS: 1. Real-time image | | | documenting the entry of micropuncture needle into the widely patent | | | right common femoral artery was obtained and copy of the image placed | | | in patient's medical records. 2. Abdominal aortogram: Single right | | | renal artery and two left renal arteries are widely patent. Diffuse | | | calcification of the aortoiliac vessels. Both common, internal and | | | external iliac arteries are widely patent. 3. Right lower extremity | | | arteriogram: Right common femoral artery, right superficial femoral | | | artery, profunda femoris artery and its branches are widely patent. | | | Right popliteal artery shows lese than 50% multifocal stenosis. | | | Anterior tibial artery, tibioperoneal trunk and peroneal artery | | | are patent to right foot. Proximal occlusion of the posterior tibial | | | artery with reconstitution at the level of right ankle. 4. Left | | | lower extremity arteriogram: Left common femoral artery, left | | | superficial femoral artery, profunda femoris artery and its branches | | | are widely patent. 7 cm, segmental, diffuse, more than 70%, | | | hemodynamically significant stenosis and proximal half of the left | | | popliteal artery with the prominent collaterals around it. Distal | | | left popliteal artery is widely patent. Anterior tibial artery, | | | tibioperoneal trunk and peroneal artery are patent the left foot. | | | Reconstitution of the occluded left posterior tibial artery at the | | | level of left ankle. Successful angioplasty of the significant | | | stenosis in left proximal popliteal artery without significant | | | residual stenosis. IMPRESSION: 1. Successful abdominal | | | aortogram and bilateral lower extremity runoff the shows bilateral | | | two-vessel runoff. 2. Significant segmental stenosis involving left | | | the popliteal artery which is treated using 5-mm balloon angioplasty | | | with no residual anatomic stenosis. 3. Patient to be started on | | | oral Plavix for 6 months. 4. Return to clinic after two weeks to | | | evaluate presence of any residual rest pain and the presence of | | | neurologic component to her rest pain in feet. Electronically | | | signed by Derrell Arellano MD on 01/23/2013 2:52 PM | | + + + + + | Procedure Note | + + | Brian, Aleksander Conversion - 05/03/2019 6:12 PM PDT [facility] ANGIOGRAM EXTREMITY | | BILATERAL01/23/2013 10:42 AM HISTORY:78 years. Female. Left lower extremity rest pain | | more than the right. MEDICATIONS: Isovue 250 95 cc, heparin 3000 units intravenous, | | Versed 4 milligram intravenous, Fentanyl 150 microgram intravenous. Radiation dose 150 | | Candy Oconnell. Fluoroscopy time 5.7 minutes. Intra procedure sedation time 50 minutes. | | Appropriate physiologic monitoring, maintenance of adequate conscious sedation and | | independent jail supervision performed throughout the procedure. No adverse | | drug reactions. PROCEDURE:Informed written consent obtained from the patient after | | explaining the procedure, risks and alternatives. Patient understood the discussion and | | expressed her wish to proceed. The appropriate side and site was labeled and initialed | | as an independent process antecedent to the imaging and intervention, as per protocol at | | this institution.? Patient was placed supine on the x-ray table. Right groin prepped in | | the usual sterile fashion. Skin and subcutaneous tissues infiltrated with 1% | | lidocaine. Right common femoral artery was localized under real-time sonographic | | guidance and accessed using micropuncture needle and exchanged for 4-Malaysian | | micropuncture sheath over 0.018 wire. 4-Malaysian micropuncture sheath was exchanged for | | 4-Malaysian by 11-cm sheath over 0.035, 3-mm J-wire. Subsequently, 4-Malaysian Omni flush | | catheter placed with its tip at the L1 vertebral level and abdominal pelvic arteriogram | | obtained in frontal projection. Subsequently, catheter was repositioned at the L3 | | vertebral level and bilateral lower extremity arteriogram obtained in bolus mariluz | | fashion. Then, Omni flush catheter was advanced over 0.035 angled Glidewire with its | | tip in the left common femoral artery. Given the hemodynamically significant stenosis | | in proximal and mid left popliteal artery and we decided to perform endovascular | | intervention. 4-Malaysian Omni flush catheter was exchanged for 0.035, Martinez wire with its | | tip in proximal left superficial femoral artery. Subsequently, catheter was removed and | | 4-Malaysian by 11 cm sheath was exchanged for 5-Malaysian by 45-cm destination sheath with | | its tip in proximal left superficial femoral artery. Subsequently, using combination of | | 4-Malaysian vertebral catheter and 0.035, Martinez wire both were advanced to distal left | | popliteal artery. Subsequently, vertebral catheter was exchanged for 5 mm x 10 cm | | balloon catheter and balloon angioplasty of the proximal left popliteal artery | | performed. Post angioplasty left leg arteriogram obtained. All catheters and wires were | | removed and right groin hemostasis obtained using Mynx closure device. Patient | | tolerated the procedure with no procedural complications. FINDINGS:1. Real-time image | | documenting the entry of micropuncture needle into the widely patent right common | | femoral artery was obtained and copy of the image placed in patient's medical records.2. | | Abdominal aortogram: Single right renal artery and two left renal arteries are widely | | patent. Diffuse calcification of the aortoiliac vessels. Both common, internal and | | external iliac arteries are widely patent.3. Right lower extremity arteriogram: Right | | common femoral artery, right superficial femoral artery, profunda femoris artery and its | | branches are widely patent. Right popliteal artery shows lese than 50% multifocal | | stenosis. Anterior tibial artery, tibioperoneal trunk and peroneal artery are patent to | | right foot. Proximal occlusion of the posterior tibial artery with reconstitution at | | the level of right ankle.4. Left lower extremity arteriogram: Left common femoral | | artery, left superficial femoral artery, profunda femoris artery and its branches are | | widely patent. 7 cm, segmental, diffuse, more than 70%, hemodynamically significant | | stenosis and proximal half of the left popliteal artery with the prominent collaterals | | around it. Distal left popliteal artery is widely patent. Anterior tibial artery, | | tibioperoneal trunk and peroneal artery are patent the left foot. Reconstitution of the | | occluded left posterior tibial artery at the level of left ankle.Successful angioplasty | | of the significant stenosis in left proximal popliteal artery without significant | | residual stenosis. IMPRESSION:1. Successful abdominal aortogram and bilateral lower | | extremity runoff the shows bilateral two-vessel runoff.2. Significant segmental | | stenosis involving left the popliteal artery which is treated using 5-mm balloon | | angioplasty with no residual anatomic stenosis.3. Patient to be started on oral Plavix | | for 6 months.4. Return to clinic after two weeks to evaluate presence of any residual | | rest pain and the presence of neurologic component to her rest pain in feet. | | | + + US Guided Vascular Access (01/23/2013 12:26 PM PDT) + + | Specimen | + + | | + + + + + | Narrative | Performed At | + + + | [facility] ANGIOGRAM EXTREMITY BILATERAL 01/23/2013 10:42 AM | | | HISTORY: 78 years. Female. Left lower extremity rest pain | | | more than the right. MEDICATIONS: Isovue 250 95 cc, | | | heparin 3000 units intravenous, Versed 4 milligram intravenous, | | | Fentanyl 150 microgram intravenous. Radiation dose 150 Candy Oconnell. | | | Fluoroscopy time 5.7 minutes. Intra procedure sedation time 50 | | | minutes. Appropriate physiologic monitoring, maintenance of | | | adequate conscious sedation and independent jail | | | supervision performed throughout the procedure. No adverse drug | | | reactions. PROCEDURE: Informed written consent obtained | | | from the patient after explaining the procedure, risks and | | | alternatives. Patient understood the discussion and expressed her | | | wish to proceed. The appropriate side and site was labeled and | | | initialed as an independent process antecedent to the imaging and | | | intervention, as per protocol at this institution.? Patient was | | | placed supine on the x-ray table. Right groin prepped in the usual | | | sterile fashion. Skin and subcutaneous tissues infiltrated with 1% | | | lidocaine. Right common femoral artery was localized under | | | real-time sonographic guidance and accessed using micropuncture | | | needle and exchanged for 4-Malaysian micropuncture sheath over 0.018 | | | wire. 4-Malaysian micropuncture sheath was exchanged for 4-Malaysian by | | | 11-cm sheath over 0.035, 3-mm J-wire. Subsequently, 4-Malaysian Omni | | | flush catheter placed with its tip at the L1 vertebral level and | | | abdominal pelvic arteriogram obtained in frontal projection. | | | Subsequently, catheter was repositioned at the L3 vertebral level | | | and bilateral lower extremity arteriogram obtained in bolus mariluz | | | fashion. Then, Omni flush catheter was advanced over 0.035 angled | | | Glidewire with its tip in the left common femoral artery. Given the | | | hemodynamically significant stenosis in proximal and mid left | | | popliteal artery and we decided to perform endovascular intervention. | | | 4-Malaysian Omni flush catheter was exchanged for 0.035, Martinez wire | | | with its tip in proximal left superficial femoral artery. | | | Subsequently, catheter was removed and 4-Malaysian by 11 cm sheath was | | | exchanged for 5-Malaysian by 45-cm destination sheath with its tip in | | | proximal left superficial femoral artery. Subsequently, using | | | combination of 4-Malaysian vertebral catheter and 0.035, Martinez wire both | | | were advanced to distal left popliteal artery. Subsequently, | | | vertebral catheter was exchanged for 5 mm x 10 cm balloon catheter | | | and balloon angioplasty of the proximal left popliteal artery | | | performed. Post angioplasty left leg arteriogram obtained. All | | | catheters and wires were removed and right groin hemostasis obtained | | | using Mynx closure device. Patient tolerated the procedure with no | | | procedural complications. FINDINGS: 1. Real-time image | | | documenting the entry of micropuncture needle into the widely patent | | | right common femoral artery was obtained and copy of the image placed | | | in patient's medical records. 2. Abdominal aortogram: Single right | | | renal artery and two left renal arteries are widely patent. Diffuse | | | calcification of the aortoiliac vessels. Both common, internal and | | | external iliac arteries are widely patent. 3. Right lower extremity | | | arteriogram: Right common femoral artery, right superficial femoral | | | artery, profunda femoris artery and its branches are widely patent. | | | Right popliteal artery shows lese than 50% multifocal stenosis. | | | Anterior tibial artery, tibioperoneal trunk and peroneal artery | | | are patent to right foot. Proximal occlusion of the posterior tibial | | | artery with reconstitution at the level of right ankle. 4. Left | | | lower extremity arteriogram: Left common femoral artery, left | | | superficial femoral artery, profunda femoris artery and its branches | | | are widely patent. 7 cm, segmental, diffuse, more than 70%, | | | hemodynamically significant stenosis and proximal half of the left | | | popliteal artery with the prominent collaterals around it. Distal | | | left popliteal artery is widely patent. Anterior tibial artery, | | | tibioperoneal trunk and peroneal artery are patent the left foot. | | | Reconstitution of the occluded left posterior tibial artery at the | | | level of left ankle. Successful angioplasty of the significant | | | stenosis in left proximal popliteal artery without significant | | | residual stenosis. IMPRESSION: 1. Successful abdominal | | | aortogram and bilateral lower extremity runoff the shows bilateral | | | two-vessel runoff. 2. Significant segmental stenosis involving left | | | the popliteal artery which is treated using 5-mm balloon angioplasty | | | with no residual anatomic stenosis. 3. Patient to be started on | | | oral Plavix for 6 months. 4. Return to clinic after two weeks to | | | evaluate presence of any residual rest pain and the presence of | | | neurologic component to her rest pain in feet. Electronically | | | signed by Derrell Arellano MD on 01/23/2013 2:52 PM | | + + + + + | Procedure Note | + + | Brian, Rad Conversion - 05/03/2019 6:12 PM PDT [facility] ANGIOGRAM EXTREMITY | | BILATERAL01/23/2013 10:42 AM HISTORY:78 years. Female. Left lower extremity rest pain | | more than the right. MEDICATIONS: Isovue 250 95 cc, heparin 3000 units intravenous, | | Versed 4 milligram intravenous, Fentanyl 150 microgram intravenous. Radiation dose 150 | | Candy Oconnell. Fluoroscopy time 5.7 minutes. Intra procedure sedation time 50 minutes. | | Appropriate physiologic monitoring, maintenance of adequate conscious sedation and | | independent jail supervision performed throughout the procedure. No adverse | | drug reactions. PROCEDURE:Informed written consent obtained from the patient after | | explaining the procedure, risks and alternatives. Patient understood the discussion and | | expressed her wish to proceed. The appropriate side and site was labeled and initialed | | as an independent process antecedent to the imaging and intervention, as per protocol at | | this institution.? Patient was placed supine on the x-ray table. Right groin prepped in | | the usual sterile fashion. Skin and subcutaneous tissues infiltrated with 1% | | lidocaine. Right common femoral artery was localized under real-time sonographic | | guidance and accessed using micropuncture needle and exchanged for 4-Malaysian | | micropuncture sheath over 0.018 wire. 4-Malaysian micropuncture sheath was exchanged for | | 4-Malaysian by 11-cm sheath over 0.035, 3-mm J-wire. Subsequently, 4-Malaysian Omni flush | | catheter placed with its tip at the L1 vertebral level and abdominal pelvic arteriogram | | obtained in frontal projection. Subsequently, catheter was repositioned at the L3 | | vertebral level and bilateral lower extremity arteriogram obtained in bolus mariluz | | fashion. Then, Omni flush catheter was advanced over 0.035 angled Glidewire with its | | tip in the left common femoral artery. Given the hemodynamically significant stenosis | | in proximal and mid left popliteal artery and we decided to perform endovascular | | intervention. 4-Malaysian Omni flush catheter was exchanged for 0.035, Martinez wire with its | | tip in proximal left superficial femoral artery. Subsequently, catheter was removed and | | 4-Malaysian by 11 cm sheath was exchanged for 5-Malaysian by 45-cm destination sheath with | | its tip in proximal left superficial femoral artery. Subsequently, using combination of | | 4-Malaysian vertebral catheter and 0.035, Martinez wire both were advanced to distal left | | popliteal artery. Subsequently, vertebral catheter was exchanged for 5 mm x 10 cm | | balloon catheter and balloon angioplasty of the proximal left popliteal artery | | performed. Post angioplasty left leg arteriogram obtained. All catheters and wires were | | removed and right groin hemostasis obtained using Mynx closure device. Patient | | tolerated the procedure with no procedural complications. FINDINGS:1. Real-time image | | documenting the entry of micropuncture needle into the widely patent right common | | femoral artery was obtained and copy of the image placed in patient's medical records.2. | | Abdominal aortogram: Single right renal artery and two left renal arteries are widely | | patent. Diffuse calcification of the aortoiliac vessels. Both common, internal and | | external iliac arteries are widely patent.3. Right lower extremity arteriogram: Right | | common femoral artery, right superficial femoral artery, profunda femoris artery and its | | branches are widely patent. Right popliteal artery shows lese than 50% multifocal | | stenosis. Anterior tibial artery, tibioperoneal trunk and peroneal artery are patent to | | right foot. Proximal occlusion of the posterior tibial artery with reconstitution at | | the level of right ankle.4. Left lower extremity arteriogram: Left common femoral | | artery, left superficial femoral artery, profunda femoris artery and its branches are | | widely patent. 7 cm, segmental, diffuse, more than 70%, hemodynamically significant | | stenosis and proximal half of the left popliteal artery with the prominent collaterals | | around it. Distal left popliteal artery is widely patent. Anterior tibial artery, | | tibioperoneal trunk and peroneal artery are patent the left foot. Reconstitution of the | | occluded left posterior tibial artery at the level of left ankle.Successful angioplasty | | of the significant stenosis in left proximal popliteal artery without significant | | residual stenosis. IMPRESSION:1. Successful abdominal aortogram and bilateral lower | | extremity runoff the shows bilateral two-vessel runoff.2. Significant segmental | | stenosis involving left the popliteal artery which is treated using 5-mm balloon | | angioplasty with no residual anatomic stenosis.3. Patient to be started on oral Plavix | | for 6 months.4. Return to clinic after two weeks to evaluate presence of any residual | | rest pain and the presence of neurologic component to her rest pain in feet. | | | + + documented in this encounter Visit Diagnoses + + | Diagnosis | + + | Extremity atherosclerosis with resting pain (HCC) Atherosclerosis of torres martinez arteries | | of the extremities with rest pain | + + | Hypertension Unspecified essential hypertension | + + documented in this encounter
--- OUTSIDE RECORDS SUMMARY | ~2020-05-22 | XMS | Encounter Summary ---
Demographics + + + | Address | [address] | | | [place] [address] | + + + | Home Phone | | + + + | Preferred Language | Unknown | + + + | Marital Status | | + + + | Adventist Affiliation | 1028 | + + + | Race | White | + + + | Ethnic Group | Not or | + + + Author + + + | Author | [facility] | | | and [place] | + + + | Organization | [facility] | | | [...] Team Providers + +------+ + | Care Blasting Machine Operator Name | Role | Phone [...] [address] [place], [place] | | | | | [place], [place] | [address] | | | | | [address] | | | | | | [phone] | | | +--------+ + + + [...] AP and lateral views of the | [facility] | | cervical spine. Stable anterior compression plate and screws from [facility] | | C5 to C7. Interbody bone [...] + | [facility] | [address] | [place] | [phone] | | [facility] | | [address] | | | - IMAGING | | | | + + + + + documented in this encounter Visit Diagnoses + + | Diagnosis | + + | S/P cervical spinal fusion - Primary Arthrodesis status | + + documented in this encounter"
--- OUTSIDE RECORDS SUMMARY | ~2020-05-22 | XMS | Encounter Summary ---
Demographics + + + | Address | [address] | | | [place] [address] | + + + | Home Phone | | + + + | Preferred Language | Unknown | + + + | Marital Status | | + + + | Confucianism Affiliation | 1028 | + + + | Race | White | + + + | Ethnic Group | Not or | + + + Author + + + | Author | [facility] | | | and [place] | + + + | Organization | [facility] | | [...] Providers + +------+ + | Care Rn Urology Name | Role | Phone | + [...] + | 03/10/ | Telephone | [facility] | Brenden Aric | Other (Medication | | 2014 | | NEUROSURGERY [address] | [address] | for MRI) | | | | [address] [place], [place] | | | | | [place], [place] | [id number] | | | | | [address] | | | | | | [phone] | | | +--------+ + + + [...]
--- OUTSIDE RECORDS SUMMARY | ~2020-05-22 | XMS | Encounter Summary ---
Demographics + + + | Address | [address] | | | [place] [address] | + + + | Home Phone [...] Team Providers + +------+ + | Care Hoop Flaring Machine Operator Name | Role | Phone | + +------+ + | Ethan Solomon MD | PCP | | + +------+ + Encounter Details +--------+ + + + + | Date | Type | Department | Care Team | Description | +--------+ + + + + | 10/09/ | Documentati | [facility] [place] | Umer Garcia MD | | | 2019 | on | NEUROSURGERY [address] | [address] | | | | | [address] | [place] [address] | | | | | [place] | [phone] | | | | | [address] | | | | | | [phone] | | | +--------+ + + + [...] documented as of this encounter Progress Notes Marcia Avila, Assistant Case Manager - 10/09/2018 3:33 PM PST Outpatient Morphine Equivalent Daily Dose (MEDD) None Opioid Risk Tool (ORT): Total Score 1 (10/09/181532) (0 to 3 = Low risk: 6% chance of developing problematic behaviors, 4 to 7 = Moderate risk: 28% chance of developing problematic behaviors, 8 or more = High risk: 90% chance of develop ing problematic behaviors.) PEG Pain screening tool (Pain, enjoyment, general activity) Total score: 7.67 ( 1533) PHQ9 Depression scale: Date of Last Screening Total Score 16 (10/09/18 1534) (1-4 = Minimal depression, 5-9 = Mild depression, 10-14 = Moderate depression, 15-19 = Mode rately severe depression, 20-27 = Severe depression) General Anxiety Disorder (CHRISTINA-7): Total Score 18 (10/09/18 1533) (8-9 = consistent with Generalized anxiety disorder, >15 = severe) The following information was obtained from [email or web address] on 10/09/18. [place] EMERGENCY SERVICES DISPATCHER was checked on 10/09/18 and no medications have been dispensed in the last 3 mon ths. The following information was obtained from https://secureaccess.[employer].gov/myAccess/saw/select .do on 10/09/18. [place] EMERGENCY SERVICES DISPATCHER was checked on 10/09/18 and no medications have been dispensed in the last 3 months. Tdocumented in this encounter Plan of Treatment Not on filedocumented as of this encounter Visit Diagnoses Not on filedocumented in this encounter"
--- OUTSIDE RECORDS SUMMARY | ~2020-05-22 | XMS | Encounter Summary ---
Demographics + + + | Address | [address] | | | [place] [address] | + + + | Home Phone [...] + + + | Author | [facility] | | | and [place] | + + + | Organization | [facility] | | | and [...] Team Providers + +------+ + | Care Gaming Investigator Name | Role | Phone | + [...] | | Orthopedic | Diagnoses | | [place], | | | | Surgery | left | | Umer Wolf MD | | | | | shoulder fu | | [address] | | | | | Procedures | | [address] [place], | | | | | OFFICE | | [place] [address] | | | | | VISIT | | Phone: | | | | | REGULAR | | [phone] | | | | | | | Fax: | | | | | | | [phone] | +--------+--------+ + + + + Encounter Details +--------+---------+ + + + | Date | Type | Department | Care Team | Description | +--------+---------+ + + + | 11/06/ | Office | [facility] | Umer Hendrix, | Arthropathy of left | | 2020 | Visit | ORTHO SPORTS | [address] | shoulder (Primary | | | | MEDICINE [place] | [place] [address] | Dx); Primary | | | | [address] | [phone] | osteoarthritis of | | | | [place], [place] | | left shoulder; | | | | [address] | | Status post total | | | | [phone] | | replacement of left | | [...] might be dif ferent from the original. [facility]: Orthopedic Surgery [...] GABRIEL Newell has created this entry using [employer] and [employer] macros. The entry has been reviewed and [...]
--- OUTSIDE RECORDS SUMMARY | ~2020-05-22 | XMS | Encounter Summary ---
Demographics + + + | Address | [address] | | | [place] [address] | + + + | Home Phone [...] Author + + + | Author | [facility] | | | and [place] | + + + | Organization | [facility] | | | [...] Team Providers + +------+ + | Care Dust Collector Attendant Name | Role | Phone | + +------+ + | Ethan Solomon MD | PCP | | + +------+ + Reason for Visit + +--------+ + | Reason | Onset | Comments | | | Date | | + +--------+ + | Back Pain | 10/04/ | | | | 2018 | | + +--------+ + | Neck Pain | 10/04/ | | | | 2018 | | + +--------+ + | Neurosurgery | 10/04/ | | | Appointment | 2018 | | + +--------+ + Encounter Details +--------+ + + + + | Date | Type | Department | Care Team | Description | +--------+ + + + + | 10/04/ | Telephone | [facility] [place] | Umer Garcia MD | Back Pain; Neck | | 2019 | | NEUROSURGERY [address] | [address] | Pain; Neurosurgery | | | | [address] | [place] [address] | Appointment | | | | [place] | [phone] | | | | | [address] | | | | | | [phone] | | | +--------+ + + + [...] Telephone Encounter - Katlyn Gómez RN - 10/04/2018 2:36 PM PSTS/P L4-S1 Fusion on 12/13 Last seen 07/17/17 (Brenden) Neck pain and cracking/ popping have persisted as described previously (06/14/18) Telephone note (06/14/18) described symptoms in detail. Brenden RIOS advised, "She can follow u p in our office or her PCP to evaluate her symptoms and make recommendations." Patient had PCP evaluate and feels that he has done what he can. She requests an appointme nt to evaluate symptoms by our providers. Left side, low back pain has gotten worse Has bursitis in left hip and "something in left foot and leg"- clarified that "it looks blo dominique going up her leg and foot"- "but this is not related to my back or neck" Fell into the roses and could not get up- at least 4 months ago; no injuries or changes in symptoms from the fall Scheduled patient 10/09/18 (Brenden), check in 1030; appointment 1100. documented in this e ncounter Plan of Treatment Not on filedocumented as of this encounter Visit Diagnoses Not on filedocumented in this encounter
--- OUTSIDE RECORDS SUMMARY | ~2020-05-22 | XMS | Encounter Summary ---
Demographics + + + | Address | [address] | | | [place] [address] | + + + | Home Phone | | + + + | Preferred Language | Unknown | + + + | Marital Status | | + + + | Mu-Ism Affiliation | 1028 | + + + | Race | White | + + + | Ethnic Group | Not or | + + + Author + + + | Author | [facility] | | | and [place] | + + + | Organization | [facility] | | [...] Team Providers + +------+ + | Care Twisting Machine Operator Name | Role | Phone | + +------+ + | Paul Hogan MD | PCP | | + +------+ + Encounter Details +--------+ + + + + | Date | Type | Department | Care Team | Description | +--------+ + + + + | 03/03/ | Hospital | [facility] | Umer Garcia MD | Back pain, | | 2015 | Encounter | MED CTR XRAY [address] | [address] | unspecified location | | | | [address] [place] | [place] [address] | | | | | [place] [address] | [phone] | | | | | [phone] | | | +--------+ + + + [...] + | [facility] [facility] | [address] | [place] | [phone] | | [facility] | | [address] | | | - IMAGING | | | | + + + + + documented in this encounter Visit Diagnoses + + | Diagnosis | + + | Back pain, unspecified location | + + documented in this encounter"
--- OUTSIDE RECORDS SUMMARY | ~2020-05-22 | XMS | Encounter Summary ---
Demographics + + + | Address | [address] | | | [place] [address] | + + + | Home Phone | | + + + | Preferred Language | Unknown | + + + | Marital Status | | + + + | Christianity Affiliation | 1028 | + + + | Race | White | + + + | Ethnic Group | Not or | + + + Author + + + | Author | [facility] | | | and [place] | + + + | Organization | [facility] | | | [...] Team Providers + +------+ + | Care Sponge Maker Name | Role | Phone | + [...] + + | 04/30/ | Hospital | [facility] | Umer Garcia MD | | | 2015 - | Encounter | MED CTR SURGICAL | [address] | | | | | [address] | [place] [address] | | | 05/01/ | | [place] [address] | [phone] | | | 2014 | | [phone] | | | +--------+ + + + [...] might be differen t from the original. [facility] NEUROSURGERY DISCHARGE SUMMARY Patient Name: Mellisa Bryant [...] Care Everywhere.CERVICAL FUSION , DISCHARGE INSTRUCTIONS FOR (INDIAN)CERVICAL DISK SURGERY, DISCHARGE INSTRUCTIONS FOR (CORRY MARK)documented [...] Umer Garcia MD - 04/30/2015 7:59 [facility] H[facility]ORY AND PHYSICAL UPDATE Pt. Name/Age/: Mellisa Braynt Sjurset 80 y.o. 1935 Date of admission: [...] by: Umer Garcia MD 04/30/2015 7:59 [facility] Umer Driver MD - 04/24 12:07 PM PDT Umer Garcia MD [address] [place] [address], [address] [place], [place] [id number] FAX: NEUROSURGERY HISTORY AND PHYSICAL EXAMINATION CHIEF [...] have been gradually worsening. [facility] She also [...] has no apparent deficits with short or termite treater helper memory. MOTOR EXAM: (5 IS NORMAL) * Indicates pain limited MUSCLE/ MOVEMENT: RIGHT LEFT Deltoids 5 5 Biceps 5 5 Triceps 5 5 Wrist Flexion 5 5 Wrist Extension 5 5 Median Intrinsics 5 5 Ulnar Intrinsics 5 5 Forging Machine Hand Strength 5 5 Hip Flexion 5 5 [...] of leg (deep venous thrombosis) ([facility]) Osteoarthritis Depression Gastric reflux Hypertension Hyperlipidemia [...] about her discharge plans. She lives in [place] alone. She will hav e her children stay and help as needed. She did decline home health. She is very independent and will not have any discharge needs. She uses [facility] in [place] for her medications. Her son will transport [...] Trisha Alarcon PTA, 05/01/2015 12:02 [facility] - 05/01/2015 9:38 AM PDTOccupational [...] needed a liquid wash with bread texture. SHAREPOINT DESIGNER DEVELOPER rec dysphagia adv anced textures, and educated Pt on diet texture modification should during the healing proce ss. Pt verbalized understanding. No further SHAREPOINT DESIGNER DEVELOPER services needed at this time. Pt is DC'd/ Speech language pathology will follow Mellisa Carrizales until discharge from therapy or discharged from the hospital. Speech Language Pathology Discharge Recommendations are: Recommended discharge disposition: home with family/caregiver Post discharge speech language pathology recommendation: no further Speech Therapy Planned Interventions: patient/caregiver education, diet texture modification SHAREPOINT DESIGNER DEVELOPER Diagnosis: Mild pharyngeal dysphagia At bedside, signs [...] fall precautions (Cervical precautions, no collar Simultaneous kawme ing. User may not have seen previous [...] Mobility Skill: Rolling/Turning, PT Eval Level Of [place]: supervision/set-up Bed Mobility Skill: Sit To Supine, Rehab Eval [place] Of [place]: Sit/Supine: supervision/set-up Bed Mobility Skill: Supine To Sit, Rehab Eval Level Of [place]: Supine/Sit: supervision/set-up Transfers Transfer Skill: Bed To Chair/Chair To Bed, Rehab Eval Level Of [place]: Bed To Chair: supervision/set-up Goal Transfers Bed to Chair/Chair to Bed Bed to Chair/Chair to Bed STG Status: New STG Transfers Bed to Chair/Chair to Bed: independent Transfer Skill: Sit To Stand, Rehab Eval Level Of [place]: Sit/Stand: supervision/set-up Goal Transfers Sit to Stand Sit to Stand STG Status: New STG Transfers Sit to Stand : independent Gait Gait Skills, PT Eval Level Of [place]: Gait: supervision/set-up Gait Distance (feet): 200 Goal Gait Gait STG Status: New STG Gait: independent STG Gait Distance (feet): 200 Stairs Stair, Performance Number Of Stairs: 4 Stair Railings: present on right side Level Of [place]: contact guard assist (75% patient effort) Goal [...] PT, 04/30/2015 14:46 lan of Care - Ar Juana newman OT - 04/30/2015 2:17 PM [...] Mellisa Bryant Sjurset 80 y.o. female 1935 [id number] Proc. Date 04/30/2015 Preop Dx Cervical spondylosis [...] allograft prior to insertion was filled with Rapides bon e. The structural allograft bone was then tamped into place at C5-6 and C6-7. Anterior cervical plating was then performed by holding a 37 [address] plate in place over th e segments with holding pins. Fluoroscopy was used to confirm its appropriate positioning a nd then elevator pilot holes were made in the C5-C7 vertebral [...] signed by: Umer Garcia MD 04/30/2015 10:13 [facility] rief Op Note - Jacob Garcia MD - 04/30/2015 10:13 AM PDTFormatting of this note might be different from the origin al. Brief Operative Note Mellisa Bryant Sjurset 80 y.o. female 1935 [id number] Proc. Date 04/30/2015 Preop Dx Cervical spondylosis [...] signed by: Umer Garcia MD 04/30/2015 10:13 [facility] documented in this encou nter Plan of [...] | | | DAILY, First dose on [facility] 04/30/15 | | AM PDT | [...] | | | | | dose on [facility] 04/30/15 at 1400, For | | [...] | | | | | | Starting [facility] 04/30/15 at 0631, For | | [...] | | | | First dose on [facility] 04/30/15 at | | | | [...]
--- OUTSIDE RECORDS SUMMARY | ~2020-05-22 | XMS | Encounter Summary ---
Demographics + + + | Address | [address] | | | [place] [address] | + + + | Home Phone [...] Team Providers + +------+ + | Care Electronics Technician Apprentice Name | Role | Phone | [...] + + | 10/20/ | Office | [facility] | Aric Wilcox | S/P lumbar fusion | | 2017 | Visit | NEUROSURGERY [address] | [address] | (Primary Dx); S/P | | | | [address] [place], [place] | cervical spinal | | | | [place] | [address] | fusion; [place] | | | | [address] | | (obstructive sleep | | | | [phone] | | apnea); Cervical | | | [...] from the original. Aric Wilcox PA-C [address] [facility], [address] [place] [address] FAX: NEUROSURGERY FOLLOW-UP CHIEF COMPLAINT: Chief Complaint [...] hope that they can avoid additional surgery. hand spray operator pain medication should be continued and tapered [...]
--- OUTSIDE RECORDS SUMMARY | ~2020-05-22 | XMS | Clinical Summary ---
Demographics + + + | Address | [address] | | | [place] [address] | + + + | Home Phone | | + + + | Preferred Language | Unknown | + + + | Marital Status | | + + + | Scientologist Affiliation | 1028 | + + + | Race | White | + + + | Ethnic Group | Not or | + + + Author + + + | Author | [facility] | | | and [place] | + + + | Organization | [facility] | | [...] Team Providers + +------+ + | Care Production Internship Name | Role | Phone | + [...] + | Paternal Grandmother | | | [place] | | | | (Age | | [...] Lot | + +--------+--------+ +--------+--------+--------+ | Bone CanRestlet Chip 15cc 4-10mm - | Bone | N/A: | RTI | | 07/11/ | [id number] | | [id number]: Qty: 1 | | Spine | BIOLOGICS | | 2020 | | | on 12/14/2015 by Umer Garcia | | Lumbar | INC - RBIO | | | /[id number] | | MD Mary at [facility] | | | | | | 7-054 | | [facility] | | | | | | / | + +--------+--------+ +--------+--------+--------+ | Imp Spn Intbdy Xlw | Generi | N/A: | NUVASIVE - | | | [id number] | | [id number] - | c | Spine | NVSV | | | 5 / / | | [id number]: Qty: 1 on | | Lumbar | | | | | | 12/14/2015 by Umer Garcia, | | | | | | | | MD at [facility] | | | | | | | | [facility] | | | | | | | + +--------+--------+ +--------+--------+--------+ | Hector Ti Prebent Lordtc 60mm - | Generi | N/A: | NUVASIVE - | | | [id number] | | [id number]: Qty: 2 on | c | Spine | NVSV | | | 0 / / | | 12/14/2015 by Umer Garcia, | | Lumbar | | | | | | MD at [facility] | | | | | | | | [facility] | | | | | | | + +--------+--------+ +--------+--------+--------+ | Graft Infuse Bone Kit Xs - | Graft | N/A: | SOFAMOR | | 08/10/ | [id number] | | [id number]: Qty: 1 on | | Spine | DANEK - DIV | | 2015 | 0 / | | 12/14/2015 by Umer Garcia, | | Lumbar | [employer] | | | /[id number] | | MD at [facility] | | | - SFDK | | | 47AAL | | [facility] | | | | | | | + +--------+--------+ +--------+--------+--------+ | Guicho Lao 10cc Dbm - | Graft | N/A: | MEDTRONIC - | | 08/03/ | [id number] | | [id number]: Qty: 1 | | Spine | MEDT | | 2018 | | | on 12/14/2015 by Umer Garcia | | Lumbar | | | | /[id number] | | MD Mary at [facility] | | | | | | 1-024 | | [facility] | | | | | | / | + +--------+--------+ +--------+--------+--------+ | Screw Polyax Prcpt 7.5x45mm - | Screw | N/A: | NUVASIVE - | | | [id number] | | [id number]: Qty: 2 | | Spine | NVSV | | | 5A / / | | on 12/14/2015 by Umer Garcia | | Lumbar | | | | | | MD Mary at [facility] | | | | | | | | [facility] | | | | | | | + +--------+--------+ +--------+--------+--------+ | Screw Polyax Prcpt 7.5x50mm - | Screw | N/A: | NUVASIVE - | | | [id number] | | [id number]: Qty: 2 | | Spine | NVSV | | | 0A / / | | on 12/14/2015 by Umer Garcia | | Lumbar | | | | | | MD Mary at [facility] | | | | | | | | [facility] | | | | | | | + +--------+--------+ +--------+--------+--------+ | Screw Polyax Precept 7.5x55 - | Screw | N/A: | NUVASIVE - | | | [id number] | | [id number]: Qty: 2 | | Spine | NVSV | | | 5A / / | | on 12/14/2015 by Umer Garcia | | Lumbar | | | | | | MD Mary at [facility] | | | | | | | | [facility] | | | | | | | + +--------+--------+ +--------+--------+--------+ | Screw Set - | Screw | N/A: | NUVASIVE - | | | [id number] | | [id number]: Qty: 6 on | | Spine | NVSV | | | 0 / / | | 12/14/2015 by Umer Garcia | | Lumbar | | | | | | at [facility] | | | | | | | | [facility] | | | | | | | + +--------+--------+ +--------+--------+--------+ | Willy Cunningham Pls 1cc Aseptic | | N/A: | OSTEOTECH - | | 09/17/ | [id number] | | - [id number]: Qty: | | Spine | OSTT | | 2017 | | | 1 on 04/30/2015 by Jose, | | Emily | | | | /[id number] | | Umer Hernandez MD at [facility] | | al | | | | 9-140 | | [facility] | | | | | | / | + +--------+--------+ +--------+--------+--------+ | Allograft Lordotic [id number] - | | N/A: | SOFAMOR | | 11/19/ | [id number] | | [id number]: Qty: 1 on | | Spine | DANEK - DIV | | 2018 | | | 04/30/2015 by Umer Garcia, | | Emily | [employer] | | | /[id number] | | at [facility] | | al | - SFDK | | | 564 | | [facility] | | | | | | /[id number] | | | | | | | | 5449 | + +--------+--------+ +--------+--------+--------+ | Allograft Lordotic [id number] - | | N/A: | SOFAMOR | | 11/19/ | [id number] | | [id number]: Qty: 1 on | | Spine | DANEK - DIV | | 2018 | | | 04/30/2015 by Umer Garcia, | | Emily | [employer] | | | /[id number] | | at [facility] | | al | - SFDK | | | 562 | | [facility] | | | | | | /[id number] | | | | | | | | 5449 | + +--------+--------+ +--------+--------+--------+ | Imp Spn Plt Ti Zevo 37mm 2lvl | | N/A: | SOFAMOR | | | [id number] | | - [id number]: Qty: 1 | | Spine | DANEK - DIV | | | | | on 04/30/2015 by Umer Garcia | | Emily | [employer] | | | | | MD Mary at [facility] | | al | - SFDK | | | | | [facility] | | | | | | | + +--------+--------+ +--------+--------+--------+ | Screw D-Thrd Slf-Drl 3.5x15mm | | N/A: | SOFAMOR | | | [id number] | | - [id number]: Qty: 4 | | Spine | DANEK - DIV | | | 5 / / | | on 04/30/2015 by Umer Garcai | | Emily | [employer] | | | | | MD Mary at [facility] | | al | - S[facility] | | | | | [facility] | | | | | | | + +--------+--------+ +--------+--------+--------+ | Screw D-Thrd Slf-Drl 4.0x15mm | | N/A: | SOFAMOR | | | [id number] | | - [id number]: Qty: 2 | | Spine | DANEK - DIV | | | 5 / / | | on 04/30/2015 by Umer Garcia | | Kimic | [employer] | | | | | MD Mary at [facility] | | al | - [facility] | | | | | [facility] | | | | | | | + +--------+--------+ +--------+--------+--------+ | Tlif Oblique [id number] 12deg | | N/A: | NUVASIVE - | | | [id number] | | - [id number]: Qty: 1 | | Spine | NVSV | | | 2 / / | | on 12/14/2015 by Umer Garcia | | Lumbar | | | | | | MD Mary at [facility] | | | | | | | | [facility] | | | | | | | + +--------+--------+ +--------+--------+--------+ | Flex Shoulder System Aequalis | | Left: | MARIAMA - | | 06/02/ | [id number] | | Humeral HeadImplanted: Qty: | | Should | TRNR | | 2020 | | | 1 on 01/03/2017 by Hu Quintero | | er | | | | /[id number] | | MD Duc | | | | | | [id number] / | + +--------+--------+ +--------+--------+--------+ | Imp Conchita Sykes [facility] S35 | | Left: | MARIAMA - | | 09/13/ | [id number] | | - [id number]: Qty: | | Should | TRNR | | 2021 | | | 1 on 01/03/2017 by Hu Quintero | | er | | | | /[id number] | | MD Duc | | | | | | 3019 / | + +--------+--------+ +--------+--------+--------+ | Ciro Bone Simplex 1/2 Dose - | | Left: | YANELY | | 01/08/ | [id number] | | [id number]: Qty: 1 on | | Should | [...] | TORNIER - | | 11/08/ | [id number] | | - [id number]: Qty: | | Should | TRNR | [...] +--------+ +---------+--------+ | MEDICARE | MEDICA | [id number] | 02/10/20 | [phone] | | Medica | | | RE | | 02-Pre | 5 | | re | | | PART A | | sent | | | | | | AND B | | | | | | + +--------+ +--------+ +---------+--------+ | MEDICARE | MEDICA | [id number] | 02/10/20 | [phone] | | Medica | | | RE | | 02-Pre | 5 | | re | | | PART A | | sent | | | | | | AND B | | | | | | + +--------+ +--------+ +---------+--------+ | MEDICARE SUPPLEMENT | MEDICA | [id number] | 02/10/20 | [phone] | | Indemn | | OTHER | RE | | 19-Pre | 0 | | ity | | | SUPPLE | | sent | | | | | | MENT | | | | | | | | OTHER | | | | | | + +--------+ +--------+ +---------+--------+ | MEDICARE SUPPLEMENT | MEDICA | [id number] | Effect | [phone] | | Indemn [...] | | al/Fam | | 1935 | [phone] | [place] | | | [place] | | | 5 (Home) | [phone] | + +--------+ +--------+ + + | Mellisa Carrizales | Person | Self [birth year] | [address] | | | al/Fam | | 1935 | [phone] | [place] | | | [place] | | | 5 (Home) | [address] | | | | | | [phone] | | | | | | | 8 (Work) | | + +--------+ +--------+ + + | Mellisa Carrizales | Person | Self | [birth year] | [address] | | | al/Fam | | 1935 | [phone] | [place] | | | [place] | | | 5 (Home) | [address] | | | | | | [phone] | | | | | | | 8 (Work) | | + +--------+ +--------+ + + Advance Directives + + + + + | Type | Date Recorded | Patient | Explanation | | | | Marketing Ambassador | | + + + + + | Power of | | | | | 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
--- OUTSIDE RECORDS SUMMARY | ~2020-05-22 | XMS | Encounter Summary ---
Demographics + + + | Address | [address] | | | [place] [address] | + + + | Home Phone | | + + + | Preferred Language | Unknown | + + + | Marital Status | | + + + | Moravian Affiliation | 1028 | + + + [...] Providers + +------+ + | Care Senior Master Scheduler Name | Role | Phone | + +------+ + | Paul Hogan MD | PCP | | + +------+ + Reason for Visit + +--------+ + | Reason | Onset | Comments | | | Date | | + +--------+ + | Follow-up | 05/04/ | Post op call | | | 2015 | | + +--------+ + Encounter Details +--------+ + + + + | Date | Type | Department | Care Team | Description | +--------+ + + + + | 05/04/ | Telephone | [facility] | Umer Garcia MD | Follow-up (Post op | | 2015 | | NEUROSURGERY [address] | [address] | call) | | | | [address] | [place] [address] | | | | | [place] | [phone] | | | | | [address] | | | | | | [phone] | | | +--------+ + + + [...] this encounter Miscellaneous Notes Telephone Encounter - Fariba Wilcox RN - 05/04/2015 10:42 AM PDTProcedure: C5-6, C6-7 An terior Cervical Discectomy Fusion Date of Surgery: 04/30/15 1. How are you feeling (pain type/often)? "A little sore" 2. If pain, where (Legs/surgical site)? Surgical site 3. Weakness/Numbness (New onset)? No 4.Taking pain meds (Name/Dosage)? [place] 10/325mg 1 tab every 8 hours 5.Loss of Bowel or Bladder (When/Chronic)? No 6.Ambulating (How often)? Ambulating at least every 45 mins SURGICAL ISSUES 1.What does the dressing look like? Clean, dry and intact 2.Is there drainage from the site? If yes, What does it look like? No 3.Do you have a fever? No 4.Follow up appointments? 05/28/15 @ 1200 5.What could we have done to make your visit better? Nothing 6. Has preoperative pain improved? Hard to tell at this point. documented in this en counter Plan of Treatment Not on filedocumented as of this encounter Visit Diagnoses Not on filedocumented in this encounter
--- OUTSIDE RECORDS SUMMARY | ~2020-05-22 | XMS | Encounter Summary ---
Demographics + + + | Address | [address] | | | [place] [address] | + + + | Home Phone [...] Team Providers + +------+ + | Care Life Skills Coordinator Name | Role | Phone | + +------+ + PCP | Unavailable | + +------+ + Encounter Details +--------+ + + + + | Date | Type | Department | Care Team | Description | +--------+ + + + + | 04/15/ | [facility] | [facility] | [place], | | | 2008 | Encounter | MED CTR XRAY [address] | [address] | | | | | [place] | [place], | | | | | [place] [address] | [place] [address] | | | | | [phone] | [phone] | | | | | | | [...]
--- OUTSIDE RECORDS SUMMARY | ~2020-05-22 | XMS | Encounter Summary ---
Demographics + + + | Address | [address] | | | [place] [address] | + + + | Home Phone | | + + + | Preferred Language | Unknown | + + + | Marital Status | | + + + | Anabaptism Affiliation | 1028 | + + + | Race | White | + + + | Ethnic Group | Not or | + + + Author + + + | Author | [facility] | | | and [place] | + + + | Organization | [facility] | | [...] Team Providers + +------+ + | Care Scruff Worker Name | Role | Phone | + +------+ + PCP | Unavailable | + +------+ + Encounter Details +--------+ + + + + | Date | Type | Department | Care Team | Description | +--------+ + + + + | 11/02/ | [facility] | [facility] | Umer Garcia MD | | | 2010 | Encounter | MED CTR XRAY [address] | [address] | | | | | [place] | [place] [address] | | | | | [place] [address] | [phone] | | | | | [phone] | | | +--------+ + + + [...]
--- OUTSIDE RECORDS SUMMARY | ~2020-05-22 | XMS | Encounter Summary ---
Demographics + + + | Address | [address] | | | [place] [address] | + + + | Home Phone [...] + + + | Author | [facility] | | | and [place] | + + + | Organization | [facility] | | | [...] Team Providers + +------+ + | Care Credit Products Officer Name | Role | Phone | + +------+ + | Paul Hogan MD | PCP | | + +------+ + Encounter Details +--------+ + + + + | Date | Type | Department | Care Team | Description | +--------+ + + + + | 05/28/ | Hospital | [facility] | Aric Wilcox | S/P cervical spinal | | 2015 | Encounter | MED CTR XRAY [address] | [address] | fusion | | | | [place] | [address] [place] | | | | | [place] [address] | [address] | | | | | [phone] | | | +--------+ + + + [...] and lateral views of the | [facility] | | cervical spine. Stable anterior compression plate and screws from [facility] | | C5 to C7. Interbody bone [...] [address] | [place] | [phone] | | [facility] | | [address] | | | - IMAGING | | | | + + + + + documented in this encounter Visit Diagnoses + + | Diagnosis | + + | S/P cervical spinal fusion Arthrodesis status | + + documented in this encounter"
--- OUTSIDE RECORDS SUMMARY | ~2020-05-22 | XMS | Encounter Summary ---
Demographics + + + | Address | [address] | | | [place] [address] | + + + | Home Phone [...] + + + | Author | [facility] | | | and [place] | + + + | Organization | [facility] | | [...] Team Providers + +------+ + | Care Desk Manager Name | Role | Phone | + +------+ + | Ethan Solomon MD | PCP | | + +------+ + Reason for Visit + + + | Reason | Comments | + + + | Follow-up | Exam 3 - Patient was seen at [facility] on 06/14 and was | | [...] | (Primary Dx); | | | | [address] | [id number] | Abnormal EKG; | | | | [phone] | | History of fall | +--------+---------+ [...] - 06/21/2019 12:15 PM PDTTransfer[facility]. documented [...] ED provider on duty. Plan: Transferred to [facility] ED by EMS for probable ACS. The risks and benefits, including potential side effects of medication changes, have been d iscussed with the patient. We agreed on implementing the current plan. The note may have been dictated using [employer]2eb[employer] voice recognition software. It may have not b een proofread in entirety. Minor errors in grammar may occur. History: Mellisa Carrizales is a 84 y.o. female here for Follow-up (Exam 3 - Patient was seen at [facility] on 06/14 and was diagnosed with pneumonia. She continues to have sharp right sided chest pain that increases with inspiration. She also states she fell recently onto her right shoulder/chest area. ) 84-year-old female from [place] with memory difficulty who was dropped off by her son for evaluation of right anterior chest discomfort. She states that she was seen at [facility] on June 14 and diagnosed with a [...] preop evaluation. She was referred to the aviation operations specialist in [facility] to be seen in August. Current medications, [...] enhancement of irma n with AP and atkd-vr-ahix pressure of the thorax. Right breast without [...] Kyphotic posture. No CVA percussion tenderness. Extremities: [place], warm and dry. No dependent edema. Calves [...] found When compared to ECG sent from [facility] in [place], [place] dated 06/11/19, There is ne w T wave inversion and poor R wave progression in V2-4. Confirmed by LUIS GONSALEZ, KHALIDA ([id number]) on 06/21/2019 2:00:36 PM D-Dimer Result Value [...] + + + | [facility] | [address] | [place] | [phone] | | [facility] | | [address] | | | [facility] | | | | + + + + + Troponin I (06/21/2019 1:15 PM PDT) + + + + + + | Component | Value | Ref Range | Performed | Pathologist | | | | | At | Signature | + + + + + + | Troponin I | <0.02Comment: | <=0.06 ng/mL | [facility] | | | | Comment:Reference | | [facility] | | | | Ranges: 0.00-0.06 = [...] | | | | | | [employer] | | | | | [...] + + + | [facility] | [address] | [place] | [phone] | | [facility] | | [address] | | | [facility] | | [...] + + + | [facility] | [address] | [place] | [phone] | | [facility] | | [address] | | | [facility] [place] | | [...] | | | | ECG sent from [facility] [[email or web address]] | | | | | | [facility] in [place], | | | | | | [place] dated 06/11/19, | | | | | | There is new T wave | | | | | | inversion and poor R | | | | | | wave progression in | | | | | | V2-4.Confirmed by | | | | | | KHALIDA GONZALEZ MD | | | | | | ([id number]) on 06/21/2019 | | | | | [...]
--- OUTSIDE RECORDS SUMMARY | ~2020-05-22 | XMS | Encounter Summary ---
Demographics + + + | Address | [address] | | | [place] [address] | + + + | Home Phone [...] Team Providers + +------+ + | Care Set Up Inspector Name | Role | Phone | + +------+ + | Paul Hogan MD | PCP | | + +------+ + Encounter Details +--------+ + + + + | Date | Type | Department | Care Team | Description | +--------+ + + + + | 01/03/ | Hospital | [facility] | Hu Quintero MD | Primary | | 2017 - | Encounter | [facility] | [address] | osteoarthritis of | | | | CARE [address]LO[address] | [place], [place] | left shoulder; | | 01/05/ | | [address] | [id number] | Chronic pain | | 2017 | | [place], [place] | | syndrome; Essential | | | | [address] | | hypertension, | | | | [phone] | | benign; Insomnia due | | | | | | to medical | | | | | | condition | +--------+ + + + + Social [...] + + + | Blood Pressure | 135/63 | 01/05/2017 1:31 PM | | | | | PDT | | + + + + + | Pulse | 81 | 01/05/2017 1:31 PM | | | | | PDT | | + + + + + | Temperature | 36.6 C (97.9 F) | 01/05/2017 1:31 PM | | | | | PDT | | + + + + + | Respiratory Rate | 16 | 01/05/2017 1:31 PM | | | | | PDT | | + + + + + | Oxygen Saturation | - | - | | + + + + + | Inhaled Oxygen | - | - | | | Concentration | | | | + + + + + | Weight | 81.9 kg (180 lb 8 | 01/05/2017 1:31 PM | | | | oz) | PDT | | + + + + + | Height | 165.1 cm (5' 5") | 01/05/2017 1:31 PM | | | | | PDT | | + + + + + | Body Mass Index | 30.04 | 01/05/2017 1:31 PM | | | | | PDT [...] documented as of this encounter Discharge Summaries Matty Vincent MD - 01/05/2017 11:32 AM PDTFormatting of this note might be differe nt from the original. Discharge Summaries by Matty Vincent MD at 01/05/17 1132 Author: Matty Vincent MD Service: Hospitalist Author Type: Physician Filed: 01/05/171955 Date of Service: 01/05/171131 Status: Signed Human Resource Advisor: Matty Vincent MD (Physician) Related Notes: Original Note by Matty Vincent MD (Physician) filed at 01/05/17 11 43 [facility] Service: Hospitalist Physician Discharge Summary Pt: Mellisa Carrizales AGE/SEX: 81 y.o. female ROOM: 39/4439-1 PCP: SIDDHARTHA LIVINGSTON : 1935 Admit date: 01/03/2017 Discharge date and time: 01/05/17 Admitting Physician: Hu Quintero MD Discharge Physician: Matty Vincent MD Consults: Dr. 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 * Secondary Discharge Diagnoses: Thrombocytopenia Acute post op. Anemia. Discharged Condition: stable Significant Diagnostic Studies: No results found. HPI and Hospital Course: This patient is a 81-year-old female who underwent left upper shoulder replacement in [place], [place] 2 days ago. During surgery, the left axillary artery was accidentally nicked a nd the patient started having severe bleeding. Hence, the patient was intubated and was russo sferred to this hospital for vascular intervention. HOSPITAL COURSE Dr. Quintero performed left mid axillary artery ligation, left axillary artery thrombectomy, ope n harvest of the left great saphenous vein, and left axillary artery to brachial artery bypa ss with reverse saphenous vein graft. Her postoperative course was uncomplicated. The patien t had intact circulation to her arm and hand. Dr. Hendrix also saw the patient in followup o f left shoulder arthroplasty. The patient had significant bleeding from the axillary artery injury and required blood transfusions. Her most recent hemoglobin is 8.1, with hematocrit o f 23.6, and she is hemodynamically stable. Both vascular surgical team and orthopedic team have cleared her for discharge. In my opini on, the patient is medically stable to go home. However, she will need PT/OT and home health upon discharge. She will also receive aspirin as per recommendation from Dr. Quintero. The patie nt should follow with Dr. Hendrix and with Dr. Quintero on the outpatient basis. Discharge Vitals: Filed Vitals: 01/04/17 1950 01/04/17 2348 01/05/17 0323 01/05/17 0839 BP: 125/67 136/63 125/60 140/66 Pulse: 99 93 85 83 Temp: 98.3 F (36.8 C) 98.6 F (37 C) 98.5 F (36.9 C) 98 F (36.7 C) TempSrc: Oral Oral Oral Oral Resp: 18 18 18 18 Height: Weight: 81.874 kg (180 lb 8 oz) SpO2: 97% 93% 94% 92% Discharge Exam: Constitutional: Alert and oriented to person, place, and time. Appears well-developed and w ell-nourished. Cardiovascular: Normal rate, regular rhythm, normal heart sounds with S1 and S2 and intact distal pulses. Exam reveals no gallop and no friction rub. No murmur heard. Pulmonary/Chest: Effort normal and breath sounds normal. No stridor. No respiratory distres s. no wheezes. no rales. exhibits no tenderness. Abdominal: Soft. Bowel sounds are normal. exhibits no distension and no mass. There is no t enderness. There is no rebound and no guarding. Musculoskeletal: left shoulder surgical wound covered with dressing. Left arm sling Neurological: Alert and oriented to person, place, and time. No cranial nerve deficit. Ex hibits normal muscle tone. Coordination normal. Skin: Skin is warm and dry. No rash noted. No erythema. Positive pallor. Psychiatric: Has a normal mood and affect. Behavior is normal. Judgment normal. LABS: Recent Labs Lab 01/04/17 1730 01/04/17 0438 01/03/17 1507 WBC 8.51 13.86* -- HGB 8.1* 9.7* 9.5* HCT 23.6* 28.7* 28* PLT 97* 127* -- NEUTOPHILPCT -- 81.31 -- MONOPCT -- 10.02 -- Recent Labs Lab 01/04/17 1730 01/04/17 0438 01/03/17 1507 NA 142 142 -- K 3.8 4.0 4.0 CL 108 107 -- CO2 26 25 -- BUN 15 13 -- CREATININE 0.6 0.7 -- Invalid input(s): LABALBU Recent Labs Lab 01/04/17 1730 MG 1.5* No results for input(s): AMYLASE in the last 168 hours. No results for input(s): PHART, PO2ART, VMV8PRD, F8YHLUGJ, BEART in the last 168 hours. No results for input(s): APTT, INR, PTT in the last 168 hours. No results for input(s): CKTOTAL, TROPONINI, TROPONINT, CKMBINDEX in the last 168 hours. Disposition: Home Patient Instructions: Medication List START taking these medications aspirin 325 MG EC tablet QTY: 60 tablet Refills: 0 For diagnoses: Primary osteoarthritis of left shoulder Take 1 tablet by mouth 2 (two) times daily. HYDROmorphone 2 MG tablet QTY: 30 tablet Refills: 0 Commonly known as: DILAUDID Take 1 tablet by mouth every 3 (three) hours as needed. CHANGE how you take these medications diclofenac 50 MG tablet Refills: 0 Commonly known as: CATAFLAM Take 1 tablet by mouth 2 (two) times daily. What changed: when to take this CONTINUE taking these medications benazepril 20 MG tablet Refills: 0 Commonly known as: LOTENSIN cyanocobalamin 1000 MCG tablet Refills: 0 Commonly known as: VITAMIN B-12 D3 ADULT PO Refills: 0 Flaxseed (Linseed) 1000 MG Caps Refills: 0 gabapentin 250 MG/5ML solution Refills: 0 Commonly known as: NEURONTIN Melatonin 10 MG Tabs Refills: 0 PARoxetine 10 MG tablet Refills: 0 Commonly known as: PAXIL pravastatin 20 MG tablet Refills: 0 Commonly known as: PRAVACHOL STOP taking these medications famotidine 20 MG tablet Commonly known as: PEPCID Where to Get Your Medications You can get these medications from any pharmacy Bring a paper prescription for each of these medications - aspirin 325 MG EC tablet - HYDROmorphone 2 MG tablet Information about where to get these medications is not yet available ! Ask your nurse or doctor about these medications - diclofenac 50 MG tablet Activity: activity as tolerated Diet: cardiac diet Wound Care: keep wound clean and dry Total time of discharge: 35 minutes. This included talking to patient, examining patient, d iscussing outpatient plan of care, reconciling home medications and dictating discharge summ clifford. Follow-up with PCP in 1 week. Signed: Matty Vincent MD 01/05/2017 11:36 AM documented in this encounter Medications at Time of [...] Progress Notes Conversion Transaction, Provider Unknown - 01/05/2017 4:07 PM PDTFormatting of this note m ight be different from the original. Nurse Progress Note by Cyn Rivas RN at 01/05/17 1607 Author: Cyn Rivas RN Service: (none) Author Type: Registered Nurse Filed: 01/05/17 1610 Date of Service: 01/05/17 1607 Status: Signed Human Resource Advisor: Cyn Rivas RN (Registered Nurse) Discharge information discussed with pt and son. All questions answered and pt stated under standing. IV and telemetry discontinued. Pt going home with son. Cyn Rivas RN 01/05/2017 onver chelsey Transaction, Provider Unknown - 01/05/2017 2:29 PM PDT Case Management by Deloris Aguilar RN at 01/05/17 4201 Author: Deloris Aguilar RN Service: (none) Author Type: Registered Nurse Filed: 01/05/17 9696 Date of Service: 01/05/170 Status: Signed Human Resource Advisor: Deloris Aguilar RN (Registered Nurse) Discharge planning: GIANNA spoke to Dr. Livingston's office, pt is not current with this physician, she presently see s Dr. Henry Hogan [phone]. GIANNA spoke to staff at office, requested clinicals faxed to off ice, also informed her pt will require MD's signature for orders since the discharge plan is home with home health PT/OT. GIANNA placed call to [facility], spoke to digital experience manager, informed CM they are accept ing pts on a case by case basis. Signed F2F, facesheet and chart notes faxed to [facility]. GIANNA will FU. onver chelsey Transaction, Provider Unknown - 01/05/2017 11:02 AM PDT Therapy Progress Note by Frederic Verma PT at 01/05/17 1102 Author: Frederic Verma PT Service: (none) Author Type: Physical Therapist Filed: 01/05/17 1207 Date of Service: 01/05/17 110 Status: Signed Human Resource Advisor: Frederic Verma PT (Physical Therapist) 01/05/17 1102 PT Last Visit PT Received On 01/05/17 Reason for Treatment Other (comment) (L TSA; L axillary bypass graft) Requires PT Follow Up Yes Follow up PT Only? No Focus for Next Treatment Bed Mobility Technique Assistance Required 1 person Dance Professor Needed No Precautions UE Precaution(s) LUE Precautions/WB LUE NWB;No active shoulder flexion;No active shoulder abduction;No ER greate r than 30 degrees;Sling Other Precautions Fall Risk Other Comments Comments Patient in the recliner upon PT arrival; agreeable to participation. Patient indic ates increasing pain in the L shoulder today - 5/10 at rest. Educated patient on all TSA pre cautions and provided patient with a printed handout for safe AROM activities for the finger s/wrist/elbow. Patient practicing and able to complete appropriately. Discussed patient's ne ed to use the quad cane for mobility as she is unable to WB through the LUE onto the walker. Pt demonstrates good retention for safe cane usage from yesterday's session. She needed mireille bal instruction for safety with transfer technique and pushing up from the chair surface and positioning her feet/trunk for momentum. With the correct setup, patient able to complete w / SBA. She likely needs supervision for home mobility/ADLs for safety secondary to her TSA p recautions and restrictions.Vitals at rest in sitting: HR 83, BP 140/66, SpO2 95% RA. Vitals in sitting: HR 87, BP 150/67. Cognition Overall Cognitive Status WFL Orientation Level Oriented Transfers Sit to/from Stand Standby assist;Verbal instruction;Minimal assist (steadying/contact guard ) Mobility Ambulation Assistance Standby assist;Minimal assist;Verbal instruction Maximal Ambulation Distance (feet) 80 ft Total Ambulation Distance (feet) 80 ft Distance limited by? Therapist/staff discretion;Patient's ability Pattern Decreased dimas;Right swing foot doesn't pass stance foot;Left swing foot doesn't pass stance foot;Step to Assistive Device Cane quad Balance Balance Yes Therapeutic Exercises Therapeutic Exercises AROM Left AROM Left Wrist;Elbow (Fingers) AROM Comments 10x completed; handout provided for review and home usage Modalities Other Therapy Ed on TSA precautions; ed on use of quadcane for mobility instead of walker, ed on sleeping positioning and need for support behind the LUE/elbow to prevent shoulder fro m moving into extension, ed on HH services to promote safety and indep with mobility and ADL s/IADLs Activity Tolerance Activity Tolerance Patient tolerated treatment without report of fatigue Nurse Made Aware RN Cyn aware of patient's request for pain medication post-activity Safety Devices Safety Devices in Place Yes Type of Devices (Call light in reach) Restraints Initially in Place No Plan Treatment/Interventions Continue per Primary PT POC Progress Progressing toward goals Recommendation Recommendations Home Assist;HH OT; PT (03/04 supervision via family and caregiver ) Barriers to Discharge Physical Deficits Impacting Functional [place] Abiodun Bustos PA-C - 01/05/2017 10:33 AM PDTFormatting of this note might be differen t from the original. Progress Notes by Abiodun Mcadams PA-C at 01/05/17 1033 Author: Abiodun Mcadams PA-C Service: Orthopedic Surgery Author Type: Physician Jessenia saeed - Certified Filed: 01/05/17 1037 Date of Service: 01/05/17 1033 Status: Signed Human Resource Advisor: Abiodun Mcadams PA-C (Physician Stove Cleaner - Certified) [facility] Service: Orthopedic Surgery Progress Note Hospital Day: LOS:Hospital Day: 3 Post-Op Day: 2 Days Post-Op status post left total shoulder arthroplasty, axillary artery repair and bypass SUBJECTIVE Patient Summary: Feeling better today. Still with pain in shoulder but manageable. Pl an for DC home this afternoon, son to be here around 3 pm. Events Overnight: No acute events. OBJECTIVE Vital Signs: Filed Vitals: 01/05/17 0839 BP: 140/66 Pulse: 83 Temp: 98 F (36.7 C) Resp: 18 SpO2: 92% Exam: Up in chair, NAD. Breathing unlabored Dressing in place, clean, dry. Incisions intact, no ALTON. Chance in place Skin intact. New dressing applied today Sensation intact ax, msc, uln, rad, med Good radial pulse 2+, brisk. Fingers pink, warm. DATA Lab Results Component Value Date WBC 8.51 01/04/2017 HGB 8.1* 01/04/2017 HCT 23.6* 01/04/2017 MCV 90.7 01/04/2017 PLT 97* 01/04/2017 Lab Results Component Value Date NA 142 01/04/2017 K 3.8 01/04/2017 CL 108 01/04/2017 CO2 26 01/04/2017 Lab Results Component Value Date INR 0.9 01/23/2013 No results found for: CRP No results found for: ESR ASSESSMENT & PLAN Doing well from shoulder standpoint, ready for [facility] Patient's son to come around 3 pm. Plan is to follow up with Dr Rausch in [facility] for orthopaedic care. Continue pain control ASA 325 BID for DVT prophylaxis Call with any concerns or questions. Abiodun Mcadams PA-C 01/05/2017 10:33 AM onversi on Transaction, Provider Unknown - 01/05/2017 9:14 AM PDTFormatting of this note might be d ifferent from the original. Case Management by Deloris Aguilar RN at 01/05/17913 Author: Deloris Aguilar RN Service: (none) Author Type: Registered Nurse Filed: 01/05/17916 Date of Service: 01/05/17913 Status: Signed Human Resource Advisor: Deloris Aguilar RN (Registered Nurse) Discharge planning: CM called Dr. Siddhartha Livingston's office ([phone], F:[phone]) per pt's request to establish care. Dry Wall Installer requested H & P and clinicals faxed before making a decision. onver chelsey Transaction, Provider Unknown - 01/05/2017 6:56 AM PDT Nurse Progress Note by Anusha Casey RN at 01/05/17 0656 Author: Anusha Casey RN Service: (none) Author Type: Registered Nurse Filed: 01/05/1757 Date of Service: 01/05/17655 Status: Signed Human Resource Advisor: Anusha Casey RN (Registered Nurse) No acute events this shift. Patient c/o pain in left shoulder r/t surgery, PO dilaudid give n X 2. Chart check completed. Anusha Casey RN onver chelsey Transaction, Provider Unknown - 01/04/2017 6:46 PM PDT Nurse Progress Note by Melany Ortega RN at 01/04/171845 Author: Melany Ortega RN Service: (none) Author Type: Registered Nurse Filed: 01/04/171848 Date of Service: 01/04/171845 Status: Signed Human Resource Advisor: Melany Ortega RN (Registered Nurse) Patient voided post thompson removal, needs urine sample for UA per MD order. Dressings clean, dry, intact. L axillary and L groin dressings to be removed tomorrow AM, cleansed with alco hol, and dry dressings applied and changed daily per Dr. Quintero. MELANY ORTEGA RN arlos Enrique Quintero MD - 01/04/2017 3:32 PM PDTFormatting of this note might be different from the orig inal. Progress Notes by Hu Quintero MD at 01/04/17 1532 Author: Hu Quintero MD Service: Vascular Surgery Author Type: Physician Filed: 01/04/17 1632 Date of Service: 01/04/17 1532 Status: Addendum Human Resource Advisor: Hu Quintero MD (Physician) Related Notes: Original Note by Sarkis Garcia DNP (Nurse Practitioner) filed at 01/04/17 8426 [facility] Service: Vascular Surgery Progress Note Hospital Day: LOS: 1 day Post-Op Day: 1 Day Post-Op SUBJECTIVE Patient Summary: Ms. Carrizales is a 81 year old female presented to [facility] for elective left shoulder replacement. The patient's left axillary artery was accidental ly injured during the surgery. The patient was referred to [facility] fo r vascular injury repair. The patient was kept intubated and sedated, life-flight to [facility] and brought to the operating room emergently. The patient presented with a le ft shoulder incision with chance in place and 2 small Bulldog clamps on the axillary artery . There was no palpable left arm pulse. Based on laboratory report, the patient had signific ant blood loss during her axillary artery injury. The patient was brought to the operating r oom emergently for left mid axillary artery ligation, left axillary artery thrombectomy, lef t axillary to axillary artery bypass with reversed left great saphenous vein by Vascular Shivam owens. Then, Dr. Hendrix, Orthopedic surgeon resumed the total shoulder replacement after rev ascularization was completed. Events Overnight: The patient is doing well postop. Pain adequately controlled. Good perfusion to left arm. Ambulated with physical therapy. IV bolus given to low urine output o vernight, tolerated well. Scheduled Medications acetaminophen 1,000 mg Oral Q8H aspirin 325 mg Oral BID atorvastatin 5 mg Oral Nightly cyanocobalamin 1,000 mcg Oral Daily docusate sodium 100 mg Oral BID famotidine 20 mg Oral BID gabapentin 300 mg Oral 4x Daily lisinopril 20 mg Oral Daily melatonin 9 mg Oral Daily PARoxetine 10 mg Oral QAM potassium CHLORIDE 40 mEq Intravenous Once PRN Medications bisacodyl, calcium carbonate, diazePAM, diphenhydrAMINE OR diphenhydrAMINE, HYDROmorpho ne, polyethylene glycol OR magnesium hydroxide, ondansetron, tapentadol, zolpidem OBJECTIVE Vital Signs: BP 113/55 mmHg | Pulse 100 | Temp(Src) 98.4 F (36.9 C) (Oral) | Resp 16 | Ht 1.651 m (5 ' 5") | Wt 81 kg (178 lb 9.2 oz) | BMI 29.72 kg/m2 | SpO2 95% | ? No PHYSICAL EXAM: Constitutional: Well nourished, no signs of distress HENT: Normocephalic and atraumatic. Cranial nerves IIXI are grossly intact. Cardiovascular: Normal rate, regular rhythm. Pulmonary/Chest: No respiratory distress. Abdominal: Soft. No abdominal distension or tenderness. Musculoskeletal: arm sling on left arm. Left shoulder and upper arm covered with surgical d ressing. Extremities: No cyanosis or clubbing. Bilateral ankle swelling. Neurological: She is alert and oriented. VASCULAR: Palpable bilateral radial, brachial pulses. Left leg surgical dressing in place, no signs of infection noted. DATA CBC: Lab Results Component Value Date WBC 13.86* 01/04/2017 RBC 3.19* 01/04/2017 HGB 9.7* 01/04/2017 HGB 9.5* 01/03/2017 HCT 28.7* 01/04/2017 HCT 28* 01/03/2017 MCV 89.8 01/04/2017 MCH 30.5 01/04/2017 MCHC 33.9 01/04/2017 RDW 45.1 01/04/2017 PLT 127* 01/04/2017 MPV 9.7 01/04/2017 DIFFTYPE AUTOMATED 01/04/2017 BMP: Lab Results Component Value Date NA 142 01/04/2017 K 4.0 01/04/2017 K 4.0 01/03/2017 CL 107 01/04/2017 CO2 25 01/04/2017 ANIONGAP 14 01/04/2017 GLUF 117* 01/04/2017 BUN 13 01/04/2017 CREATININE 0.7 01/04/2017 BCR 19 01/04/2017 CA 7.5* 01/04/2017 EGFR >60 01/04/2017 ASSESSMENT & PLAN Left axillary artery injury during left total shoulder replacement status post axillary to axillary bypass with reversed left great saphenous vein: the patient is doing well. Good per fusion to bilateral hands with palpable pulses. Surgical dressings in place in left upper ar m and left leg. The patient's bypass dressing and left leg surgical dressing may be removed tomorrow, clean the wound with alcohol swab, let it dry, then apply dry gauze and secure it with tape, dressing changed daily. The patient may be discharged from vascular surgery stand point, report given to hospitalist for transfer of the patient. We will follow up the patien t in the vascular surgery clinic in 2 week for postop wound check with arterial ultrasound o f left upper extremity and bypass. Code Status: Full Code MD Sarkis Luther DNP 01/04/2017 Abiodun Rolle PA-C - 01/04/2017 1:45 PM PDTFormatting of this note might be different from the origin al. Progress Notes by Abiodun Mcadams PA-C at 01/04/17 2198 Author: Abiodun Mcadams PA-C Service: Orthopedic Surgery Author Type: Physician Jessenia saeed - Certified Filed: 01/04/17 1400 Date of Service: 01/04/17 2336 Status: Signed Human Resource Advisor: Abiodun Mcadams PA-C (Physician Stove Cleaner - Certified) [facility] Service: Orthopedic Surgery Progress Note Hospital Day: LOS:Hospital Day: 2 Post-Op Day: 1 Day Post-Op status post left total shoulder arthroplasty. S/p left axillary artery repair and bypass graft SUBJECTIVE Patient Summary: Patient is doing well. Little pain in shoulder. Currently up with PT ambulating room. Events Overnight: No acute events. OBJECTIVE Vital Signs: Filed Vitals: 01/04/17 1141 BP: Pulse: Temp: 98.4 F (36.9 C) Resp: 16 SpO2: 95% Exam: Up with PT ambulating about room with a walker and assistance. She is wearing a sling. Sensation intact in axillary, musculocutaneous, median, ulnar, radial distribution. Fingers are pink and warm to touch. Radial pulse 2+. Moves all fingers with no pain. DATA Lab Results Component Value Date WBC 13.86* 01/04/2017 HGB 9.7* 01/04/2017 HCT 28.7* 01/04/2017 MCV 89.8 01/04/2017 PLT 127* 01/04/2017 Lab Results Component Value Date NA 142 01/04/2017 K 4.0 01/04/2017 CL 107 01/04/2017 CO2 25 01/04/2017 Lab Results Component Value Date INR 0.9 01/23/2013 No results found for: CRP No results found for: ESR ASSESSMENT & PLAN Patient is doing well following left shoulder procedures. Encouraged continued PT for ambulation and PT for TSA protocol. Aspirin 325 mg twice a day as blood thinner. We will continue this for 30 days. Discussed discharge planning patient and her son today. Plan is for her to go home when sta ble and son has coordinated a caregiver during a day and he will be available to help evenin gs and at night. We will plan to see how she does with therapy and reevaluate tomorrow. Tent ative plan will be for patient to go home tomorrow afternoon if stable and ready for dischar ge. Continue pain control and we will follow up tomorrow. Abiodun Mcadams PA-C 01/04/2017 1:45 PM onversi on Transaction, Provider Unknown - 01/04/2017 12:27 PM PDTFormatting of this note might be d ifferent from the original. Therapy Progress Note by Frederic Verma, PT at 01/04/17 1227 Author: Frederic Verma PT Service: (none) Author Type: Physical Therapist Filed: 01/04/17 1449 Date of Service: 01/04/171226 Status: Signed Human Resource Advisor: Frederic Verma PT (Physical Therapist) 01/04/17 1227 PT Last Visit PT Received On 01/04/17 Reason for Treatment Other (comment) (L TSA; L axillary bypass graft) Requires PT Follow Up Yes Follow up PT Only? No Focus for Next Treatment Bed Mobility Technique;Transfer Technique (Progress gait training) PT Eval/Reassessment Date 01/04/17 Assistance Required 1 person Dance Professor Needed No Home Environment Additional Comments See OT note for details; reviewed with patient. Prior Function Level of [place] Modified independent with functional mobility;Assist with IADLs;Drwildai william in community;Modified independent with ADLs Falls in Past Year Yes ((with injuries to head, hip and foot, questioned foot fx) Lives With Adult child(ambrocio) Receives Help From Dna Analyst ADL Assistance Independent Home ADL's (Son and caregiver) Employment Retired for age LUE Assessment LUE Assessment X (S/p L TSA) RLE Assessment RLE Assessment (ALETA functional weakness) LLE Assessment LLE Assessment (Hx of L foot fx; antalgia with gait;s/p vein harvest) Cognition Overall Cognitive Status WFL Orientation Level Oriented Sensation Additional Comments ALETA Neuropathies feet/legs Perception Inattention/Neglect Appears intact Initiation Appears intact Motor Planning Appears intact Vision-Basic Assessment Current Vision Reading glasses Assessment of Patient Status Assessment of Patient Status Decreased functional mobility;Decreased ADL status;Precaution s;Pain;Decreased endurance Prognosis Should progress with skilled therapy intervention Safety Devices Safety Devices in Place Yes Restraints Initially in Place No Precautions UE Precaution(s) LUE Precautions/WB LUE NWB;No active shoulder flexion;No active shoulder abduction;No ER greate r than 30 degrees;Sling Other Precautions Fall Risk Plan Treatment/Interventions Assist d/c plannning;Bed mobility training;Balance training;Therape utic exercise;Review precautions;Transfer training;Gait training;Review HEP;Provide HEP PT Frequency 5-7x/wk Care Duration (# of days) 7 # of days Recommendation Recommendations Home Assist;HH OT;HH PT (03/04 supervision via family and caregiver ) Barriers to Discharge Physical Deficits Impacting Functional [place] 01/04/17 1227 PT Last Visit PT Received On 01/04/17 Reason for Treatment Other (comment) (L TSA; L axillary bypass graft) Requires PT Follow Up Yes Follow up PT Only? No Focus for Next Treatment Bed Mobility Technique;Transfer Technique (Progress gait training) PT Eval/Reassessment Date 01/04/17 Assistance Required 1 person Dance Professor Needed No Precautions UE Precaution(s) LUE Precautions/WB LUE NWB;No active shoulder flexion;No active shoulder abduction;No ER greate r than 30 degrees;Sling Other Precautions Fall Risk Other Comments Comments Chart reviewed, evaluation completed. Pt is 1 Day Post-Op status post left total s houlder arthroplasty. S/p left axillary artery repair and bypass graft. Patient in the recli ner upon PT arrival; sling on and LUE appropriately positioned to avoid extension via pillow s. Ed on need for safe handling and positioning techniques to adhere to precautions and prom ote safety/comfort. Patient with noted LLE discomfort (no pain score provided when assessed) from the LE vascular surgery and history of foot pain. PT having patient trial a quad cane for mobility as she has one available at home and is not appropriate to use a walker s/p the L TSA. Patient currently benefits from supervision/SBA for essentially all components of mo bility. Pt indicating discomfort w/ bed mobility earlier. Discussed possibility of obtaining a recliner to allow for improved comfort and indep for home return. Pt's mobility is slow a nd guarded, gait is noted to have short, shuffled steps. Pt indicates mild soreness in the LUE at the surgical site, but notes it is tolerable with new medication- pain at 10/21. Vital s post activity: HR 89, BP 107/57, SpO2 96%RA. Discussed need for home supervision and HH s ervices to further promote indep and safety with ADLs/mobility. Ed on safe sling positioning and need for use at all times as directed by . Ed on avoiding active movement through the L shoulder. Ed to son on safe patient handling for bed mobility technique- will need practi ce prior to patient returning home. Pt in the recliner after activity, no new complaints. Cognition Overall Cognitive Status WFL Orientation Level Oriented Transfers Sit to/from Stand Minimal assist (steadying/contact guard) Mobility Ambulation Assistance Minimal assist;Standby assist Maximal Ambulation Distance (feet) 15x2 Total Ambulation Distance (feet) 30 ft Distance limited by? Patient's ability Pattern Decreased dimas;Right swing foot doesn't pass stance foot;Left swing foot doesn't pass stance foot;Step to Assistive Device Cane quad Balance Balance Yes (Slow/cautious movement; at risk for falls) Therapeutic Exercises Therapeutic Exercises AROM Left AROM Left Wrist;Elbow (Fingers) AROM Comments Ed on AROM for the LUE to promote ROM and reduce the risk of secondary impair ments/contractures; ed on avoiding active movement of the LUE Modalities Modalities Other therapy Other Therapy Ed on PT POC, ed on TSA precautions and safe mobility techniques, ed on sleep ing positioning - use of recliner for positioning and indepednence, ed on need for assist w/ ADLs and supervision for mobility; ed on safe gait technique utilizing a step-to approach w ith the quad cane due to LLE pain Activity Tolerance Activity Tolerance Patient tolerated treatment without report of fatigue Nurse Made Aware DEEPA [place] Safety Devices Safety Devices in Place Yes Restraints Initially in Place No Plan Treatment/Interventions Assist d/c plannning;Bed mobility training;Balance training;Therape utic exercise;Review precautions;Transfer training;Gait training;Review HEP;Provide HEP PT Frequency 5-7x/wk Care Duration (# of days) 7 # of days Recommendation Recommendations Home Assist;HH OT;HH PT (03/04 supervision via family and caregiver ) Barriers to Discharge Physical Deficits Impacting Functional [place] Low - 49370 Moderate - 00524 High - 20806 History no personal factors &/or comorbidities 1-2 personal factors &/or comorbidities 3 o r more personal factors &/or comorbidities Examination 1-2 elements 3 elements 4 or more elements Clinical Presentation stable evolving unstable Clinical Decision Making Complexity: Low 67075 Moderate 36920 High 24419 onver chelsey Giron, Provider Unknown - 01/04/2017 11:55 AM PDT Therapy Progress Note by CHINA Metz at 01/04/17 3896 Author: CHINA Metz Service: (none) Author Type: Occupational Therapist Filed: 01/04/17 1151 Date of Service: 01/04/171154 Status: Signed Human Resource Advisor: CHINA Metz (Occupational Therapist) 01/04/17 1040 OT Last Visit OT Received On 01/04/17 Reason for Treatment Other (comment) (TSA) Requires OT Follow Up Yes OT Eval/Reassessment Date 01/04/17 Assistance Required 1 person Dance Professor Needed No Family/Caregiver Present No Precautions UE Precaution(s) LUE Precautions/WB LUE NWB;No active shoulder flexion;No active shoulder abduction;No ER greate r than 30 degrees;Sling Other Comments Comments Per H&P, "81 year old female presented to [facility] for elective left shoulder replacement. The patient's left axillary artery was accidentally injured during the surgery. The patient was referred to [facility] for vascular injury rep air. The patient was kept intubated and sedated, life-flight to [facility] and br ought to the operating room emergently. The patient presented with a left shoulder incision with chance in place and 2 small Bulldog clamps on the axillary artery. There was no palpab le left arm pulse. Based on laboratory report, the patient had significant blood loss during her axillary artery injury. " Pt is s/p L axillary artery bypass/UE revascularization and L TSA. Pt's VS's were HR 87 bpm, BP 113/55. Chart reviewed, evaluation completed. No furt her needs identified. Activity Tolerance Activity Tolerance Patient tolerated treatment well Safety Devices Safety Devices in Place Yes Type of Devices Call lite in place Plan Treatment Interventions ADL retraining;IADL retraining;Functional transfer training;Functio nal dynamic activities;UE strengthening;Therapeutic exercises;Patient/Family training;Equipm ent eval/education;Compensatory technique education Progress (Initiate OT POC) OT Frequency 4-6 x/wk Care Duration (Days) 10 Days Recommendation Recommendation SNF (Pt requiring Mod A to STS from bedside chair, adult son would only be available the day sh e returns home, would benefit from rehab stay to strengthen functional mobility and ADL task s.) OT Ready for Discharge Yes 01/04/17 1040 Precautions UE Precaution(s) LUE Precautions/WB LUE NWB;No active shoulder flexion;No active shoulder abduction;No ER greate r than 30 degrees;Sling Home Environment Type of Home Home one story Home Exterior Layout Ramp (ramp in the front and back of house) Home Interior Layout W/C accessible Bathroom Shower/Tub Walk-in shower Bathroom Toilet Standard Bathroom Equipment Grab bars outside of shower/bath;Raised toilet seat Bathroom Accessibility Accessible via walker Home Equipment Walker 4 wheeled;Cane single point Prior Function Level of [place] Modified independent with functional mobility;Assist with IADLs;Juan Antonio thomas in community;Modified independent with ADLs Falls in Past Year Yes (with injuries to head, hip and foot, questioned foot fx) Lives With Adult child(ambrocio) Receives Help From Dna Analyst ADL Assistance Independent Home ADL's (Son and caregiver) Employment Retired for age Leisure Hobbies-yes (Comment) (H20 aerobics, TOPPS) ADL Functional Assistance x 1 person;Moderate assist;Verbal instruction Additional Comments Pt was agreeable to stand and reposition herself. She was c/o back dis comfort and her LUE was sliding into shoulder extension. Pt was given vc's to scoot herself forward to the edge of the chair. She reported she usually uses both arms but was prompted to not use her LUE as she intially tried to position it to weight bear. Pt required Mod A with VC's to STS. Took 3 attempts. Once standing pt was able to maintain standing balance while OT adjusted gown and sling. VC's to have pt back up to the chair and reach back with her RUE to feel the chair. Pt positioned much better in the chair with the sling in a lorena r position and pillows underneath her LUE to prevent shoulder extension and poor positioning again. Pt in a much better position when OT left. Vision-Basic Assessment Current Vision Reading glasses Cognition Overall Cognitive Status WFL Orientation Level Oriented Sensation Additional Comments ALETA neuropathies feet/legs, R hand is tingling currently RUE Assessment RUE Assessment X (hx Rotator cuff surgery, mid range ROM) LUE Assessment LUE Assessment X (s/p TSA) Hand Function Gross Grasp Impaired Impaired Gross Grasp Unable to grasp objects without difficulty Assessment Assessment Decreased ADL status;Decreased UE ROM;Decreased UE strength;Decreased endurance; Decreased sensation;Decreased fine motor control;Decreased self-care trans;Decreased high-le tansiha ADLs Prognosis Good;With continued OT s/p acute discharge Goal Formulation Patient ADL Goals Pt Will Perform Grooming Standing at sink;With min assist;Maintaining ROM/orthopedic restri ctions Pt Will Perform UE Dressing At edge of bed;With mod assist Pt Will Perform LE Dressing At edge of bed;With mod assist;With adaptive equipment Plan Treatment Interventions ADL retraining;IADL retraining;Functional transfer training;Functio nal dynamic activities;UE strengthening;Therapeutic exercises;Patient/Family training;Equipm ent eval/education;Compensatory technique education Progress (Initiate OT POC) OT Frequency 4-6 x/wk Care Duration (Days) 10 Days Requires OT Follow Up Yes Recommendation Recommendation SNF (Pt requiring Mod A to STS from bedside chair, adult son would only be available the day sh e returns home, would benefit from rehab stay to strengthen functional mobility and ADL task s. ) OT Ready for Discharge Yes Education Completed: Education Topic: OT role, D/C planning, UE precautions Completed with: Patient Completed by: Verbal Education Response to Education: Stated Understanding Focus for next session: Reinforce precautions, UE exercises, functional mobility, ADL's, A E Follow up OT only? No Barriers to d/c at this time include: Family support: Son only available the day she discharges Physical deficits impacting functional independence: Poor functional mobility, requirin g Mod A for STS Self-care deficits impacting functional independence: Will need assist for ADL's Low - 47827 Moderate - 44385 High - 81071 History Expanded review of medical records; additional review of physical, cognitive, or p sychosocial skills Examination Identification of 3-5 performance deficits Decision Making May present with comorbidities; minimal to moderate modification of tasks or assistance is needed to complete eval Clinical Decision Making Complexity: Moderate 10388 onver chelsey Transaction, Provider Unknown - 01/04/2017 11:23 AM PDT Therapy Progress Note by Frederic Verma, PT at 01/04/17 1123 Author: Frederic Verma PT Service: (none) Author Type: Physical Therapist Filed: 01/04/17 1123 Date of Service: 01/04/171122 Status: Signed Human Resource Advisor: Frederic Verma PT (Physical Therapist) 01/04/17 1123 PT Last Visit PT Received On 01/04/17 Requires PT Follow Up Unavailable Other Comments Comments Currently w/ OT; plan to follow up after for evaluation. onver chelsey Transaction, Provider Unknown - 01/04/2017 11:20 AM PDT Case Management by Deloris Aguilar RN at 01/04/17 1120 Author: Deloris Aguilar RN Service: (none) Author Type: Registered Nurse Filed: 01/04/17 1130 Date of Service: 01/04/170 Status: Signed Human Resource Advisor: Deloris Aguilar RN (Registered Nurse) Met with pt, explained CM's role and discussed discharge planning. Pt lives with her 55 yo son Leandro. She is independent with adls and iadls. Denied use of DME, owns a 4WW, not pre sently participating in any outpatient medical services. No blood thinners, home oxygen or c pap use. 01/04/17 1116 Discharge Planning Evaluation Admitting Diagnosis Left axillary artery injury. Readmission No Living Arrangements Children Support Systems Children Type of Residence Private residence House type House-1 story Steps to enter (Has a ramp.) Independent with ADL's Yes Independent with Mobility Yes Home Care Services No Caregiver after Discharge Yes Caregiver Name Leandro Carrizales Relationship to Patient Son Phone number [phone] Mental Status Oriented Prior functional status Fully independent with adls and iadls. Power of Research Hydrologist No Anticipated Discharge Plan Post Acute Care Needs None at this time Plan communicated to patient/family Yes Resources Financial concerns No Transportation issues No Patient/Family concerns No Prescription Plan Yes Name of Pharmacy [facility] Previous home health equipment No Vascular access device No Ostomy/Drains/Appliances No Anticipated Disposition Facility Type Home Met with: Mellisa, and discussed discharge planning, Pt is a 81 y.o., female Patient's PCP is: Pt is in the process of finding a PCP. Patient's insurance: Medicare/[employer]. Coverage concerns: None. Medication coverage/concerns: Yes/[place]. Rx Bedside Delivery: Community resources utilized / needed: None. Assistance in transportation: Son can transport home. Identification of any specific education / training: None. Barriers to Discharge / Alternative housing needed: None. Anticipated DCP: Discharge home. DELORIS AGUILAR onver chelsey Transaction, Provider Unknown - 01/04/2017 4:42 AM PDT Nurse Progress Note by Babar Castillo RN at 01/04/17441 Author: Babar Castillo RN Service: (none) Author Type: Registered Nurse Filed: 01/04/17442 Date of Service: 01/04/17441 Status: Signed Human Resource Advisor: Babar Castillo RN (Registered Nurse) No acute events during hourly rounding. Patient ambulated this am with some difficulty. Pat ient would benefit from PT consult. Babar Castillo RN leta Bowman RPH - 01/03/2017 7:18 PM PDTFormatting of this note might be different from the or iginal. Progress Notes by Aleta Jones RPH at 01/03/171917 Author: Aleta Jones RPH Service: Pharmacy Author Type: Pharmacist Filed: 01/03/171917 Date of Service: 01/03/171917 Status: Signed Human Resource Advisor: Aleta Jones RPH (Pharmacist) Renal Dosing Monitoring: Mellisa Carrizales 81 y.o. female Pharmacy dosing for renal function per Dr. Hopper Plan per protocol: No scr available at this time Pharmacy will continue monitoring patient for appropriate dosing per renal function. 01/03/2017 7:18 PM Pharmacist: ALETA JONES onversio n Transaction, Provider Unknown - 01/03/2017 6:48 PM PDTFormatting of this note might be di fferent from the original. Nurse Progress Note by Melany Ortega RN at 01/03/171847 Author: Melany Ortega RN Service: (none) Author Type: Registered Nurse Filed: 01/03/171848 Date of Service: 01/03/171847 Status: Signed Human Resource Advisor: Melany Ortega RN (Registered Nurse) Report received from TARRING MACHINE OPERATOR in SBAR format, all questions addressed. Patient to transfer t o room 4439. MELANY ORTEGA RN docume nted in this encounter H&P Notes Mery Lynne - 01/04/2017 7:23 PM PDT H&P by Mery Lynne MD at 01/04/171922 Author: Mery Lynne MD Service: (none) Author Type: Physician Filed: 01/04/171940 Date of Service: 01/04/171922 Status: Signed Human Resource Advisor: Mery Lynne MD (Physician) [facility] Service: Hospitalist Admission History & Physical Date of Admission: 01/03/2017 Requesting Physician: Dr. Quintero, Vascular Surgery Reason for Admission: Transfer of care to Hospitalist History Obtained From: patient and PA for Dr. Quintero CHIEF COMPLAINT: Insomnia and visual hallucinations HISTORY OF PRESENT ILLNESS The patient is 81 y.o. female with significant past medical history of Hypertension and ost eoarthritis who presents with PO day 2 after left shoulder surgery and injury to her Left ax illary artery. Dr. Quintero's notes describe the procedure and I refer you to them for more deta il. Now patient is cleared and discharged from Vascular surgery and Orthopedic surgery in [facility] and will be managed by the Hospitalist to coordinate discharge planning for her retur n to [facility] where she says she will follow up for PT/OT and with Dr. Rausch her [facility] surgeon there. She also has appointments with Pain clinic in the next 2-3 weeks. Patient has only the complaint of insomnia and visual hallucinations. REVIEW OF SYSTEMS Review of Systems Constitutional: Positive for activity change and fatigue. Negative for fever and chills. HENT: Negative. Eyes: Negative. Respiratory: Negative. Negative for cough and shortness of breath. Cardiovascular: Positive for leg swelling. Negative for chest pain. Gastrointestinal: Negative. Negative for vomiting. Endocrine: Negative. Genitourinary: Negative. Musculoskeletal: Negative. S/p left shoulder surgery Skin: Negative. Allergic/Immunologic: Negative. Neurological: Negative for dizziness and tremors. Hematological: Does not bruise/bleed easily. Psychiatric/Behavioral: Positive for hallucinations and sleep disturbance. Patient states she has not been able to sleep since surgery and has seen objects in e room that are no objects by distortion of sensory input. IE like the red bag on the count er resembling a person leaning there. Past Medical History Diagnosis Date Allergic rhinitis, cause unspecified Anxiety Peripheral vascular disease (HCC) Sleep apnea Back pain DDD (degenerative disc disease) pain in hips Past Surgical History Procedure Laterality Date Hysterectomy Hiatal hernia repair Appendectomy Bypass graft-axillary artery Left 01/03/2017 Procedure: BYPASS GRAFT - AXILLARY ARTERY; Surgeon: Hu Quintero MD; Location: [facility]; Service: Vascular; Laterality: Left; Left axillary exploration and axillary artery repair. Left saphenous vein harvest Shoulder surgery Left 01/03/2017 Procedure: SHOULDER - TOTAL; Surgeon: Dariel Hendrix MD; Location: [facility] OR; Ser vice: Orthopedics; Laterality: Left; Tornier component Immunizations: Influenza: Up to date Pneumoccocal: Up to date Allergies Allergen Reactions Codeine Rash Penicillins Rash Prescriptions prior to admission Medication Sig Dispense Refill Last Dose benazepril (LOTENSIN) 20 MG tablet Take 20 mg by mouth daily. 06/03/2013 at Unknown Cholecalciferol (D3 ADULT PO) Take by mouth. 06/03/2013 at Unknown diclofenac (CATAFLAM) 50 MG tablet Take 50 mg by mouth 3 (three) times daily. 06/03/20 13 at Unknown famotidine (PEPCID) 20 MG tablet Take 1 tablet by mouth 2 (two) times daily. 180 tablet 3 06/03/2013 at Unknown Flaxseed, Linseed, 1000 MG CAPS Take by mouth. 06/03/2013 at Unknown gabapentin (NEURONTIN) 250 MG/5ML solution Take by mouth 3 (three) times daily. 06/03 at Unknown Melatonin 10 MG TABS Take by mouth. 06/03/2013 at Unknown paroxetine (PAXIL) 10 MG tablet Take 10 mg by mouth every morning. 06/04/2013 at Unkno wn pravastatin (PRAVACHOL) 20 MG tablet Take 20 mg by mouth daily. 06/03/2013 at Unknown vitamin B-12 (CYANOCOBALAMIN) 1000 MCG tablet Take 1,000 mcg by mouth daily. 3 at Unknown No family history on file. SOCIAL HISTORY: Her son lives with her and he works and will pick her up when she is disch arged. Non smoking and non drinking PHYSICAL EXAM Vital Signs: BP 122/58 mmHg | Pulse 89 | Temp(Src) 99.1 F (37.3 C) (Oral) | Resp 16 | Ht 1.651 m (5' 5") | Wt 81 kg (178 lb 9.2 oz) | BMI 29.72 kg/m2 | SpO2 93% | ? No Physical Exam Constitutional: She is oriented to person, place, and time. She appears well-developed and well-nourished. No distress. HENT: Head: Normocephalic and atraumatic. Mouth/Throat: Oropharynx is clear and moist. Eyes: EOM are normal. Pupils are equal, round, and reactive to light. Right eye exhibits no discharge. Slightly yellow globes Neck: Normal range of motion. Neck supple. No tracheal deviation present. Cardiovascular: Normal rate, regular rhythm and normal heart sounds. Exam reveals no tejeda p and no friction rub. Pulmonary/Chest: Effort normal and breath sounds normal. No stridor. No respiratory distres s. She has no wheezes. Abdomina/Gl: Soft. Bowel sounds are normal. She exhibits no distension. There is no tendern ess. Musculoskeletal: She exhibits edema. Left upper arm is in sling Neurological: She is alert and oriented to person, place, and time. No cranial nerve defici t. She exhibits normal muscle tone. Skin: Skin is warm and dry. She is not diaphoretic. There is pallor. Psychiatric: She has a normal mood and affect. Her behavior is normal. Judgment and thought content normal. Vitals reviewed. DATA Results for orders placed or performed during the hospital encounter of 01/03/17 (from the past 24 hour(s)) CBC w/auto diff (reflex to manual) POD #1 Collection Time: 01/04/17 4:38 AM Result Value Ref Range WBC 13.86 (H) 3.80 - 11.00 K/uL RBC 3.19 (L) 3.70 - 5.10 M/uL HGB 9.7 (L) 11.3 - 15.5 g/dL HCT 28.7 (L) 34.0 - 46.0 % MCV 89.8 80.0 - 100.0 fl MCH 30.5 27.0 - 34.0 pg MCHC 33.9 32.0 - 35.5 g/dL RDW SD 45.1 37 - 53 fl PLT 127 (L) 150 - 400 K/uL MPV 9.7 fl DIFF TYPE AUTOMATED NEUTROPHILS 81.31 % LYMPHOCYTES 8.54 % MONOCYTES 10.02 % EOSINOPHILS 0.01 % BASOPHILS 0.12 % NEUTROPHILS ABS 11.27 (H) 1.90 - 7.40 K/uL LYMPHOCYTES ABS 1.18 1.00 - 3.90 K/uL MONOCYTES ABS 1.39 (H) 0.00 - 0.80 K/uL EOSINOPHILS ABS 0.00 0.00 - 0.50 K/uL BASOPHILS ABS 0.02 0.00 - 0.10 K/uL Basic metabolic panel POD #1 Collection Time: 01/04/17 4:38 AM Result Value Ref Range SODIUM 142 135 - 145 mmol/L POTASSIUM 4.0 3.5 - 4.9 mmol/L CHLORIDE 107 99 - 109 mmol/L CO2 25 23 - 32 mmol/L ANION GAP AGAP 14 5 - 20 mmol/L GLUCOSE 117 (H) 65 - 99 mg/dL BUN 13 8 - 25 mg/dL CREATININE 0.7 0.50 - 1.00 mg/dL BUN/CREAT 19 CALCIUM 7.5 (L) 8.5 - 10.5 mg/dL EGFR >60 >60 mL/min/1.73m2 PROBLEM LIST Principal Problem: Chronic pain syndrome Active Problems: Essential hypertension, benign Insomnia due to medical condition Leukocytosis post op ASSESSMENT & PLAN Patient Active Hospital Problem List: Chronic pain syndrome (01/04/2017) Assessment: stable and well controled Plan: Follow up with her pain clinic after discharge Essential hypertension, benign (01/04/2017) Assessment: controlled Plan: treat as indicated Insomnia due to medical condition (01/04/2017) Assessment: likely due to hypervigellance, noise and lights and post op state Plan: monitor and offer sleep aids Sleep apnea Assessement Will check that she is using Cpap at sleep Plan Cpap for sleep DVT prophylaxis as per surgery Discharge planning PT/OT according to patient will be done in her local area Disposition: Transfer care to Hospitalist and keep same orders Code Status: Full Code Primary Care Physician: SIDDHARTHA LYNNE MD 01/04/2017 oi, Hu Xavier MD - 2:42 PM PDT H&P by Hu Quintero MD at 01/03/17 5812 Author: Hu Quintero MD Service: Vascular Surgery Author Type: Physician Filed: 01/03/17 1502 Date of Service: 01/03/17 1442 Status: Signed Human Resource Advisor: Hu Quintero MD (Physician) [facility] Service: Vascular Surgery Admission History & Physical Date of Admission: 01/03/2017 Reason for Admission: Left axillary artery injury History Obtained From: chart review CHIEF COMPLAINT: Left axillary artery injury HISTORY OF PRESENT ILLNESS 81 year old female presented to [facility] for elective left shoulder replacemen t. The patient's left axillary artery was accidentally injured during the surgery. The patie nt was referred to [facility] for vascular injury repair. The patient wa s kept intubated and sedated, life-flight to [facility] and brought to the operat ing room emergently. The patient presented with a left shoulder incision with chance in bronson ce and 2 small Bulldog clamps on the axillary artery. There was no palpable left arm pulse. Based on laboratory report, the patient had significant blood loss during her axillary arter y injury. REVIEW OF SYSTEMS Unable to obtain due to the patient's condition Past Medical History Diagnosis Date Allergic rhinitis, cause unspecified Anxiety Peripheral vascular disease (HCC) Sleep apnea Back pain DDD (degenerative disc disease) pain in hips Past Surgical History Procedure Laterality Date Hysterectomy Hiatal hernia repair Appendectomy Allergies Allergen Reactions Codeine Rash Penicillins Rash Medication Sig benazepril (LOTENSIN) 20 MG tablet Take 20 mg by mouth daily. Cholecalciferol (D3 ADULT PO) Take by mouth. diclofenac (CATAFLAM) 50 MG tablet Take 50 mg by mouth 3 (three) times daily. famotidine (PEPCID) 20 MG tablet Take 1 tablet by mouth 2 (two) times daily. Flaxseed, Linseed, 1000 MG CAPS Take by mouth. gabapentin (NEURONTIN) 250 MG/5ML solution Take by mouth 3 (three) times daily. Melatonin 10 MG TABS Take by mouth. paroxetine (PAXIL) 10 MG tablet Take 10 mg by mouth every morning. pravastatin (PRAVACHOL) 20 MG tablet Take 20 mg by mouth daily. vitamin B-12 (CYANOCOBALAMIN) 1000 MCG tablet Take 1,000 mcg by mouth daily. No family history on file. Social History Marital Status: Number of Children: Patient's son is present in the hospital PHYSICAL EXAM There were no vitals taken for this visit. General: 81 year old female, intubate and sedated, pale Heart: regular rhythm and rate Lungs: On ventilator support Abdomen: Soft, not distended Lower extremities: Bilateral calf, ankle and feet swelling Left shoulder incision with chance in place. No palpable left axillary, brachial radial pu lses. DATA CBC: Lab Results Component Value Date WBC 4.0 01/23/2013 RBC 3.67* 01/23/2013 HGB 6.8* 01/03/2017 HGB 11.6 01/23/2013 HCT 20* 01/03/2017 HCT 34.3 01/23/2013 MCV 93.3 01/23/2013 MCH 31.7 01/23/2013 MCHC 34.0 01/23/2013 RDW 42.4 01/23/2013 PLT 126* 01/23/2013 MPV 7.2 01/23/2013 BMP: Lab Results Component Value Date NA 142 01/23/2013 K 3.1* 01/03/2017 K 4.4 01/23/2013 CL 106 01/23/2013 CO2 29 01/23/2013 ANIONGAP 13 01/23/2013 GLUF 103* 01/23/2013 BUN 30* 01/23/2013 CREATININE 0.96 01/23/2013 BCR 32 01/23/2013 CA 9.3 01/23/2013 EGFR >60 01/23/2013 ASSESSMENT & PLAN Left axillary artery injury during left total shoulder replacement. The patient is brought to the operating room emergently for left axillary artery exploration, bleeding control, pos sible axillary artery repair, possible bypass to revascularize the left arm. Dr. Hendrix, Or [facility] surgeon will resume the total shoulder replacement after revascularization is compl eted. Hu Quintero MD 01/03/2017 documented in this enco unter Miscellaneous Notes Op Note - Dariel Hendrix MD - 01/03/2017 6:19 PM PDT Op Note by Dariel Hendrix MD at 01/03/171818 Author: Dariel Hendrix MD Service: Orthopedic Surgery Author Type: Physician Filed: 01/03/171822 Date of Service: 01/03/171818 Status: Signed Human Resource Advisor: Dariel Hendrix MD (Physician) [facility] Service: Orthopedic Surgery Post Op Note Patient is status post Left TSA following axillary artery bypass.. Subjective: Feels well, no pain. I discussed the case with her, and reasoning for the trans philip to [facility] for the procedures. She expressed understanding. Objective: Wt Readings from Last 1 Encounters: 06/04/13 72.122 kg (159 lb) Temp Readings from Last 2 Encounters: 01/03/17 98.4 F (36.9 C) Temporal 06/04/13 97.1 F (36.2 C) Skin BP Readings from Last 2 Encounters: 01/03/17 128/66 06/04/13 166/83 Pulse Readings from Last 2 Encounters: 01/03/17 88 06/04/13 70 Exam: Dressing clean and dry Arm/hand warm, well perfused. 2+ radial pulse Decreased sensation R/U/M/Msc/Ax due to block. Decreased motor due to block. Assessment & Plan: S/P left TSA. PT/OT- TSA protocol. DVT prophylaxis- aspirin BID. Pain control- block, IV, PO cocktail. Will continue to follow. p Note - Dariel Rich MD - 01/03/2017 5:23 PM PDTFormatting of this note might be different from t he original. Op Note by Dariel Hendrix MD at 01/03/171722 Author: Dariel Hendrix MD Service: Orthopedic Surgery Author Type: Physician Filed: 01/03/171746 Date of Service: 01/03/171722 Status: Signed Human Resource Advisor: Dariel Hendrix MD (Physician) [facility] Service: Orthopedic Surgery Operative Report PREOPERATIVE DIAGNOSIS: Chronic left glenohumeral primary osteoarthritis ICD M19.012 POSTOPERATIVE DIAGNOSIS: Chronic left glenohumeral primary osteoarthritis PROCEDURE: Left total shoulder arthroplasty, CPT 67769 SURGEON: Dariel Hendrix MD CONSTRUCTION OR LEAK GANG LABORER: Abiodun Mcadams PA-C ANESTHESIA: General endotracheal with previously placed interscalene block. ANESTHESIOLOGIST: [place] DO FLUIDS: 3300 mL (total for entire case) ESTIMATED BLOOD LOSS: 200 mL (total for orthopaedic portion of case) URINE OUTPUT: 300 mL (total for orthopaedic portion of case) COMPLICATIONS: none IMPLANTS: Tornier Ascend Flex/PerFORM Total Shoulder system 1- Size 4C press-fit stem 2- Size 48 mm x 18 mm, 1.5 mm-offset humeral head 3- Size S35 ultra high molecular weight polyethylene pegged glenoid component This is a metal on polyethylene implant. Cement was used. INDICATION: Ms Carrizales is a pleasant 81 year old female, who was transferred from [facility] to [facility] with a intraoperative vascular complication. She was under going left total shoulder arthroplasty, axillary artery was injured, and she was transferred for repair of the vasculature. I was asked by the outside orthopedic surgeon to step in and complete the total shoulder arthroplasty after the vascular repair. I discussed the surgic al procedure with the son, risks and benefits were discussed, including but not limited to, infection, bleeding, fracture, continued pain, instability, loss of motion, need for future procedure, DVT, PE, cardiac arrest, stroke, loss of life or limb. He expressed understandin g, all questions were satisfactorily addressed, and he wished to proceed. Consent was obtai lionel and placed on the chart. PROCEDURE: After proper completion of the vascular repair of the axillary artery, I entered the operat ing room. The left upper extremity remained prepped and draped in sterile fashion, and the p atient was repositioned in the beach chair position. A timeout was then performed, confirmi ng patient identity, procedure to be performed, and that perioperative antibiotics had been given. Implants were available outside the room. The incision was reopened in the typical deltopectoral approach to the shoulder. The skin incision was made and carried down to the deltopectoral fascia. The cephalic vein was identified, protected, and retracted laterally with the deltoid. The conjoined tendon w as identified, unfortunately this had been lacerated during the course of the vascular repai r. I tagged both ends of the tendon for later repair.. A retractor was placed deep to this. The subscapularis tendon was identified by the previously placed tag stitch, this is been removed from the lesser tuberosity by a "tendon peel" technique. I placed retractors protect ing the soft tissue, and Dr. Lieberman entered the room and explored the axillary nerve to assur e it was not injured. This is dictated under separate note. After completion of his portion I went ahead with the total shoulder arthroplasty. The humerus was then subluxed anteriorly out of the arthrotomy. The humeral head cut had previously been made at the anatomic neck. The canal was reamed, then broached sequentially until good metaphyseal fill, maintaining careful version. Approp riately sized humeral trial implants were selected and trialed for fit and stability. Trial components were then removed, the head cut protector was inserted, and attention was then tu rned to the glenoid. A circumferential soft tissue release was performed. The long head of the biceps was ident ified, tagged, and tenotomized. The glenoid drill guide was then placed in the center of th e glenoid, and the center peg hole was drilled. The glenoid face was then prepared using the glenoid reamers. The pegged drill guide was then placed, and the superior and inferior hol es were drilled. The glenoid trial was then inserted for fit. This was then removed, and t he glenoid was thoroughly irrigated. Meanwhile, the cement was prepared on the back table. When the cement had reached proper consistency, it was placed and pressurized in the superi or and inferior glenoid drill holes. Bone graft was packed around the fins of the central pe g, and the final glenoid implant was then impacted into place. When the cement had cured, a ttention was turned back to the humerus. The head cut protector was removed, the appropriate humeral implants were then opened on th e back table, and the head was impacted into place, assuring correct head position. The hum eral component was then impacted into the humeral metaphysis. The shoulder was then reduced , and appropriate stability was noted. The joint was then copiously irrigated with sterile saline, and hemostasis was obtained. The subscapularis was then repaired with fiber wires, a soft tissue biceps tenodesis was performed, and the rotator interval was then closed with #2 fiber wire. I then injected a total of 20 cc 0.5% marcaine with epinephrine, morphine, ke tamine and toradol into the joint. I then repaired the conjoined tendon. I first started murray newberry and used a #2 FiberWire, running distally with a running locking Krakw suture const ruct and coming back proximally again with a running locking Krakw suture construct. I the n repeated the process in the park proximal stump of the tendon running proximally as a runn ing locking Krakw construct and coming back distally with running locking Krakw construc t. I then tied the appropriate suture tails to each other while my phlebotomist medical lab assistant held appropriat e tension on the tendon. The deltopectoral fascia was then loosely reapproximated with #1 Vi cryl. The subcutaneous tissues were then irrigated with sterile saline, and subcutaneous wo und closure was then performed with #2-0 vicryl. The skin was closed with chance The skin was then thoroughly cleaned, and a sterile dressing was applied. Drapes were then removed, the cryotherapy pack was applied, followed by a sling. The patient was then repos itioned supine, general anesthesia was reversed, and the patient was extubated. The patient was placed back to the hospital bed, and taken to the recovery room in stable condition. All counts were correct. There were no complications. DARIEL HENDRIX MD 01/03/2017 5:23 PM iscellavenecia Lieberman, Misbah Adams MD - 01/03/2017 4:27 PM PDTFormatting of this note might be differe nt from the original. Treatment Plan by Misbah Lieberman MD at 01/03/17 1627 Author: Misbah Lieberman MD Service: Orthopedic Surgery Author Type: Physician Filed: 01/04/17 1057 Date of Service: 01/03/171626 Status: Signed Human Resource Advisor: Misbah Lieberman MD (Physician) Related Notes: Original Note by Misbah Lieberman MD (Physician) filed at 01/03/17 1628 The transfer center at [facility] called me earlier on today regarding concern for possible left brachial plexus injury or axillary nerve injury accompanied with a n axillary artery laceration. Dr. Quintero had performed a bypass graft for the artery and Dr. Jodi wright was going to start a total shoulder. Prior to Dr. Hendrix beginning his portion of the case, I dissected out the wound. No nerve injury was noted by me. The axillary nerve was intact. I traced it out to the divisions. T here was no nerve injury of note. The bypass appeared patent; and since there was no nerve i njury, I irrigated out the wound and turned the case back over to Dr. Hendrix. p Note - Paolo Valdovinos MD - 01/03/2017 3:10 PM PDTFormatting of this note might be different from the re gishiv. Op Note by Paolo Valdovinos MD at 01/03/17 1510 Author: Paolo Valdovinos MD Service: Vascular Surgery Author Type: Physician Filed: 01/04/17 1234 Date of Service: 01/03/17 1510 Status: Signed Human Resource Advisor: Paolo Valdovinos MD (Physician) [facility] Service: Vascular Surgery Operative Note Pre-operative Diagnosis: Left axillary artery injury and acute left upper extremity ischem ia Post-operative Diagnosis: Same Procedure(s): 1. Left mid axillary artery ligation 2. Left axillary artery thrombectomy 3. Open harvest of left great saphenous vein 4. Left axillary artery to brachial artery bypass with reversed saphenous vein graft Co-Surgeons: Paolo Valdovinos MD Stove Cleaner(s): PRESTON Pruitt Anesthesia: General endotrachial anesthesia Estimated Blood Loss: Less Than 50 ml Other: See Dr. Quintero's Op note Indications: See Dr. Quintero's op note Findings: Axillary artery with injury. Intima was injured and was not repairable. Theref ore, after thrombectomy, the damaged artery was ligated. The saphenous vein was of good siz e. Bypass performed for left proximal axillary artery to proximal brachial artery. Good ra dial and brachial pulse after anastomoses. Complications: None apparent Description of Procedure: Please see Dr. Quintero's op note for details of the procedure. I wa s scrubbed and present through the entirety of the procedure and the left axillary artery to brachial artery bypass was performed with Dr. Quintero as described in Dr. Quintero's op note. Condition: Stable Paolo Valdovinos MD 01/04/2017 p Note - Hu Quintero M D - 01/03/2017 3:03 PM PDT Op Note by Hu Quintero MD at 01/03/17 1503 Author: Hu Quintero MD Service: Vascular Surgery Author Type: Physician Filed: 01/03/172013 Date of Service: 01/03/17 1503 Status: Addendum Human Resource Advisor: Hu Quintero MD (Physician) Related Notes: Original Note by Hu Quintero MD (Physician) filed at 01/03/17 1632 [facility] Service: Vascular Surgery Operative Note NAME: Mellisa Carrizales BILLING #: [id number] MR #: [id number] : 1935 DATE OF PROCEDURE: 01/03/2017 CO-SURGEONS: Hu Quintero MD ; Paolo Valdovinos MD CONSTRUCTION OR LEAK GANG LABORER: PRESTON Pruitt PREOPERATIVE DIAGNOSIS: 1. left axillary artery injury 2. Left arm acute ischemia POSTOPERATIVE DIAGNOSIS: Same PROCEDURES: 1) Left mid axillary artery ligation 2) Left axillary artery thrombectomy 3) Left axillary to axillary artery bypass with reversed left great saphenous vein 4) Left great saphenous vein harvest ANESTHESIA: General endotrachial anesthesia SPECIMEN: None ESTIMATED BLOOD LOSS: Less Than 50 ml BLOOD ADMINISTERED: 0 unit PRBC transfusion COMPLICATIONS: None CONDITION: Stable INDICATIONS: This is a 81 year old female patient who presented with injury of left axilla ry artery and acute left arm ischemia. The patient was therefore scheduled to undergo an selene rgency left axillary artery exploration, bleeding control, possible arterial repair, possibl e arterial bypass surgery. PROCEDURE IN DETAIL: The patient was brought to the operating room and placed on the operat ing table in the supine position. The patient was transferred to [facility] with endotracheal intubation and general anesthesia. The patient s left shoulder, ches t and arm as well as bilateral groins and thighs were prepped sterilely and draped in the st andard fashion. Appropriate time out was performed whereby we identified the patient and als o the site of the surgery. The patient received 6000 Units intravenous heparin at [facility] 90 minutes prior. This part of the procedure was performed by Dr. Hu Quintero and Dr. Paolo Valdovinos. We proceeded w ith opening the left shoulder incision by removing the skin chance. The axillary artery was found to be clamped with 2 Bulldog clamps. There was multiple Prolene sutures on the mid ax illary artery. Proximal and distal control of the axillary artery was obtained with vascular clamp. The axillary artery injury involved more than 50% of the lumen and the intima was co mpleted damaged. The injured portion of the axillary artery was about 1.5cm in length. Based on this findings, the decision as made to perform a proximal to distal axillary artery bypa ss with vein graft. Thrombus at the proximal and distal axillary artery was removed with thr ombectomy using Derrick balloon to restore pulsatile flow and back bleeding from the axillar y artery. The injured portion of the mid axillary artery was transected and suture-ligated p roximally and distally. This part of the procedure was performed by Dr. Paolo Valdovinos. Dissection of the proximal axillar y artery was performed using Metzenbaum scissors. The proximal axillary artery was isolated circumferentially and controlled with vascular clamp. This part of the procedure was performed by Dr. Hu Quintero. A distal incision was made at the axillary fossa and isolated the distal axillary artery. The distal axillary artery was i solated circumferentially and controlled with vessel loops. A longitudinal incision was made at the left thigh to isolate the great saphenous vein. All the branches were ligated and th e great saphenous vein was circumferentially dissected. The proximal and distal great saphen ous vein was ligated and transected. The great saphenous vein conduit was passed to the back table. The saphenous vein was dilated with heparinized saline and all the side branches lig ation was confirmed. 5000 Units systemic heparin was next given intravenously. This part of the procedure was performed by Dr. Paolo Valdovinos. Vascular clamps were next placed i n the proximal axillary artery. An arteriotomy was opened in the femoral artery using a #11 blade, which was extended using a Jansen scissor. The saphenous vein graft was trimmed in an oblique fashion and connected to the proximal axillary artery in an end-to-side fashion usin g a 5-0 Prolene suture. Next vascular clamps were removed from the axillary artery. Antegrad e flow in the bypass graft was brisk. No bleeding for the anastomotic suture line was noted. This part of the procedure was performed by Dr. Hu Quintero. Next the vein graft was tunnel ed in anatomical fashion and brought out in the axillary fossa . The axillary artery was nex t controlled with proximal and distal vessel loops. An arteriotomy was next opened in the ax illary artery using a #11 blade. The distal end of the vein graft was trimmed and connected to the axillary artery in an end-to-side fashion using a 5-0 prolene sutures. Upon the compl etion of the end-to-side anastomotic reconstruction, the clamps were released and excellent blood flow was noted in the axillary axillary artery bypass graft. The improved in left arm arterial circulation was confirmed with palpable brachial and radial artery pulses. The woun ds were irrigated. Hemostasis was confirmed. The axillary fossa fascias was closed using a 3 -0 PDS suture. The skin was closed using a 4-0 monocryl suture in a subcuticular fashion. De rmabond was applied over the axillary fossa incision site in the usual fashion. The patient tolerated the procedure well without any complication. I was present throughout the entire o peration. The left shoulder wound was left opened to allow shoulder replacement procedure by Orthoped ic surgeon, Dr. Hendrix. TREATMENT DISPOSITION: the patient will need to be placed on Aspirin 81mg daily. Hu Quintero MD documented in this enco unter Plan of Treatment Not on filedocumented as of this encounter Procedures + +--------+ + + + | Procedure Name | Priori | Date/Time | Associated Diagnosis | Comments | | | ty | | | | + +--------+ + + + | URINALYSIS, REFLEX | Routin | 01/05/2017 | | Results for this | | MICROSCOPIC AND/OR | e | 8:29 AM | | procedure are in the | | CULTURE | | PDT | | results section. | + +--------+ + + + | EXTERNAL LAB: CBC | Routin | 01/04/2017 | | Results for this | | | e | 5:30 PM | | procedure are in the | | | | PDT | | results section. | + +--------+ + + + | MAGNESIUM | Routin | 01/04/2017 | | Results for this | | | e | 5:30 PM | | procedure are in the | | | | PDT | | results section. | + +--------+ + + + | BASIC METABOLIC | Routin | 01/04/2017 | | Results for this | | PANEL | e | 5:30 PM | | procedure are in the | | | | PDT | | results section. | + +--------+ + + + | EXTERNAL LAB: CBC | Routin | 01/04/2017 | | Results for this | | | e | 4:38 AM | | procedure are in the | | | | PDT | | results section. | + +--------+ + + + | BASIC METABOLIC | Routin | 01/04/2017 | | Results for this | | PANEL | e | 4:38 AM | | procedure are in the | | | | PDT | | results section. | + +--------+ + + + | ANTELMO BOYCE, | Routin | 01/03/2017 | | Results for this | | ARTERIAL | e | 3:07 PM | | procedure are in the | | | | PDT | | results section. | + +--------+ + + + | IBAN ANTELMO DENNIS, | Routin | 01/03/2017 | | Results for this | | ARTERIAL | e | 1:46 PM | | procedure are in the | | | | PDT | | results section. | + +--------+ + + + | IBAN ANTELMO DENNIS, | Routin | 01/03/2017 | | Results for this | | ARTERIAL | e | 12:08 PM | | procedure are in the | | | | PDT | | results section. | + +--------+ + + + documented in this encounter Results Urinalysis, Reflex Microscopic and/or Culture (01/05/2017 8:29 AM PDT) + + + + + + | Component | Value | Ref Range | Performed | Pathologist | | | | | At | Signature | + + + + + + | Color | STRAW | | EXTERNAL | | | | | | LAB | | + + + + + + | Clarity, | CLEAR | | EXTERNAL | | | Urine | | | LAB | | + + + + + + | Specific | 1.006 | 1.002 - 1.030 | EXTERNAL | | | [place], | | | LAB | | | Urine | | | | | + + + + + + | Leukocyte | NEGATIVE | | EXTERNAL | | | Esterase, | | | LAB | | | Urine | | | | | + + + + + + | Nitrite, | NEGATIVE | | EXTERNAL | | | Urine | | | LAB | | + + + + + + | Urobilinoge | NORMAL | mg/dL | EXTERNAL | | | n, Urine | | | LAB | | + + + + + + | Protein, | NEGATIVE | mg/dL | EXTERNAL | | | Urine | | | LAB | | + + + + + + | pH, Urine | 7.0 | 5.0 - 8.0 | EXTERNAL | | | | | | LAB | | + + + + + + | Blood, | NEGATIVE | | EXTERNAL | | | Urine | | | LAB | | + + + + + + | Ketones | NEGATIVE | mg/dL | EXTERNAL | | | | | | LAB | | + + + + + + | Bilirubin, | NEGATIVE | | EXTERNAL | | | Urine | | | LAB | | + + + + + + | Glucose, | NEGATIVEComment: Testing | mg/dL | EXTERNAL | | | Urine | performed at [facility], [address] | | LAB | | | | [address], | | | | | | [place] [address] | | | | + + + + + + + + | Specimen | + + | | + + + +---------+ + + | Performing | Address | City/State/Zipcode | Phone Number | | Organization | | | | + +---------+ + + | EXTERNAL LAB | | | | + +---------+ + + External Lab: CBC (01/04/2017 5:30 PM PDT) + + + + + + | Component | Value | Ref Range | Performed | Pathologist | | | | | At | Signature | + + + + + + | WBC | 8.51 | 3.80 - 11.00 | EXTERNAL | | | | | K/uL | LAB | | + + + + + + | Non- | 2.61 (L) | 3.70 - 5.10 | EXTERNAL | | | Red Blood | | M/uL | LAB | | | Cells | | | | | | Counted | | | | | + + + + + + | Hemoglobin | 8.1 (L) | 11.3 - 15.5 | EXTERNAL | | | | | g/dL | LAB | | + + + + + + | Hematocrit, | 23.6 (L) | 34.0 - 46.0 % | EXTERNAL | | | POC | | | LAB | | + + + + + + | MCV | 90.7 | 80.0 - 100.0 fl | EXTERNAL | | | | | | LAB | | + + + + + + | MCH | 31.2 | 27.0 - 34.0 pg | EXTERNAL | | | | | | LAB | | + + + + + + | MCHC | 34.4 | 32.0 - 35.5 | EXTERNAL | | | | | g/dL | LAB | | + + + + + + | RDW-CV | 45.5 | 37 - 53 fl | EXTERNAL | | | | | | LAB | | + + + + + + | Platelet | 97 (L) | 150 - 400 K/uL | EXTERNAL | | | Count | | | LAB | | | Plasma | | | | | + + + + + + | MPV | 10.1 | fl | EXTERNAL | | | | | | LAB | | + + + + + + | Differentia | MANUAL | | EXTERNAL | | | l Type | | | LAB | | + + + + + + | Segmented | 83 | % | EXTERNAL | | | Neutrophils | | | LAB | | | Manual | | | | | + + + + + + | Lymphocytes | 9 | % | EXTERNAL | | | Manual | | | LAB | | + + + + + + | Monocytes | 8 | % | EXTERNAL | | | Manual | | | LAB | | + + + + + + | Absolute | 7.06 | 1.90 - 7.40 | EXTERNAL | | | Neutrophils | | K/uL | LAB | | + + + + + + | Absolute | 0.77 (L) | 1.00 - 3.90 | EXTERNAL | | | Lymphocytes | | K/uL | LAB | | + + + + + + | Absolute | 0.68 | 0.00 - 0.80 | EXTERNAL | | | Monocytes | | K/uL | LAB | | + + + + + + | Platelet | DECREASED | | EXTERNAL | | | Estimate | | | LAB | | + + + + + + | RBC | NORMAL RBC MORPHComment: | | EXTERNAL | | | Morphology | Testing performed at | | LAB | | | | [facility], [address] | | | | | | [place] | | | | | | [address] | | | | + + + + + + + + | Specimen | + + | Blood specimen | | (specimen) | + + + +---------+ + + | Performing | Address | City/State/Zipcode | Phone Number | | Organization | | | | + +---------+ + + | EXTERNAL LAB | | | | + +---------+ + + Magnesium (01/04/2017 5:30 PM PDT) + + + + + + | Component | Value | Ref Range | Performed | Pathologist | | | | | At | Signature | + + + + + + | Magnesium | 1.5 (L)Comment: Testing | 1.7 - 2.4 mg/dL | EXTERNAL | | | | performed at [facility], [address] | | LAB | | | | [address] [place], | | | | | | [place] [address] | | | | + + + + + + + + | Specimen | + + | Blood specimen | | (specimen) | + + + +---------+ + + | Performing | Address | City/State/Zipcode | Phone Number | | Organization | | | | + +---------+ + + | EXTERNAL LAB | | | | + +---------+ + + Basic Metabolic Panel (01/04/2017 5:30 PM PDT) + + + + + + | Component | Value | Ref Range | Performed | Pathologist | | | | | At | Signature | + + + + + + | Na | 142 | 135 - 145 | EXTERNAL | | | | | mmol/L | LAB | | + + + + + + | K | 3.8 | 3.5 - 4.9 | EXTERNAL | | | | | mmol/L | LAB | | + + + + + + | Cl | 108 | 99 - 109 mmol/L | EXTERNAL | | | | | | LAB | | + + + + + + | CO2 | 26 | 23 - 32 mmol/L | EXTERNAL | | | | | | LAB | | + + + + + + | Anion Gap | 12 | 5 - 20 mmol/L | EXTERNAL | | | | | | LAB | | + + + + + + | Glucose, | 125 (H) | 65 - 99 mg/dL | EXTERNAL | | | Fasting | | | LAB | | + + + + + + | BUN | 15 | 8 - 25 mg/dL | EXTERNAL | | | | | | LAB | | + + + + + + | Creatinine | 0.6 | 0.50 - 1.00 | EXTERNAL | | | | | mg/dL | LAB | | + + + + + + | BUN/Creatin | 25 | | EXTERNAL | | | ine Ratio | | | LAB | | + + + + + + | Calcium | 7.6 (L) | 8.5 - 10.5 | EXTERNAL | | | | | mg/dL | LAB | | + + + + + + | Estimated | >60Comment: GFR <60: | mL/min/1.73m2 | EXTERNAL | | | GFR | CHRONIC KIDNEY DISEASE, | | LAB | | | | IF FOUND OVER A 3 MONTH | | | | | | PERIOD.GFR <15: KIDNEY | | | | | | FAILURE.FOR | | | | | | AMERICANS, MULTIPLY THE | | | | | | CALCULATED GFR BY | | | | | | 1.210.Testing performed | | | | | | at [facility], [address] | | | | | | [address], | | | | | | [place] [address] | | | | + + + + + + + + | Specimen | + + | Blood specimen | | (specimen) | + + + +---------+ + + | Performing | Address | City/State/Zipcode | Phone Number | | Organization | | | | + +---------+ + + | EXTERNAL LAB | | | | + +---------+ + + External Lab: LILY (01/04/2017 4:38 AM PDT) + + + + + + | Component | Value | Ref Range | Performed | Pathologist | | | | | At | Signature | + + + + + + | WBC | 13.86 (H) | 3.80 - 11.00 | EXTERNAL | | | | | K/uL | LAB | | + + + + + + | Non- | 3.19 (L) | 3.70 - 5.10 | EXTERNAL | | | Red Blood | | M/uL | LAB | | | Cells | | | | | | Counted | | | | | + + + + + + | Hemoglobin | 9.7 (L) | 11.3 - 15.5 | EXTERNAL | | | | | g/dL | LAB | | + + + + + + | Hematocrit, | 28.7 (L) | 34.0 - 46.0 % | EXTERNAL | | | POC | | | LAB | | + + + + + + | MCV | 89.8 | 80.0 - 100.0 fl | EXTERNAL | | | | | | LAB | | + + + + + + | MCH | 30.5 | 27.0 - 34.0 pg | EXTERNAL | | | | | | LAB | | + + + + + + | MCHC | 33.9 | 32.0 - 35.5 | EXTERNAL | | | | | g/dL | LAB | | + + + + + + | RDW-CV | 45.1 | 37 - 53 fl | EXTERNAL | | | | | | LAB | | + + + + + + | Platelet | 127 (L) | 150 - 400 K/uL | EXTERNAL | | | Count | | | LAB | | | Plasma | | | | | + + + + + + | MPV | 9.7 | fl | EXTERNAL | | | | | | LAB | | + + + + + + | Differentia | AUTOMATED | | EXTERNAL | | | l Type | | | LAB | | + + + + + + | % Segmented | 81.31 | % | EXTERNAL | | | | | | LAB | | | Neutrophils | | | | | + + + + + + | % | 8.54 | % | EXTERNAL | | | Lymphocytes | | | LAB | | + + + + + + | % Monocytes | 10.02 | % | EXTERNAL | | | | | | LAB | | + + + + + + | % | 0.01 | % | EXTERNAL | | | Eosinophils | | | LAB | | + + + + + + | % Basophils | 0.12 | % | EXTERNAL | | | | | | LAB | | + + + + + + | Absolute | 11.27 (H) | 1.90 - 7.40 | EXTERNAL | | | Segmented | | K/uL | LAB | | | Neutrophils | | | | | + + + + + + | Absolute | 1.18 | 1.00 - 3.90 | EXTERNAL | | | Lymphocytes | | K/uL | LAB | | + + + + + + | Absolute | 1.39 (H) | 0.00 - 0.80 | EXTERNAL | | | Monocytes | | K/uL | LAB | | + + + + + + | Absolute | 0.00 | 0.00 - 0.50 | EXTERNAL | | | Eosinophils | | K/uL | LAB | | + + + + + + | Absolute | 0.02Comment: Testing | 0.00 - 0.10 | EXTERNAL | | | Basophils | performed at [facility], [address] | [address] | LAB | | | | [address], | | | | | | [place] [address] | | | | + + + + + + + + | Specimen | + + | Blood specimen | | (specimen) | + + + +---------+ + + | Performing | Address | City/State/Zipcode | Phone Number | | Organization | | | | + +---------+ + + | EXTERNAL LAB | | | | + +---------+ + + Basic Metabolic Panel (01/04/2017 4:38 AM PDT) + + + + + + | Component | Value | Ref Range | Performed | Pathologist | | | | | At | Signature | + + + + + + | Na | 142 | 135 - 145 | EXTERNAL | | | | | mmol/L | LAB | | + + + + + + | K | 4.0 | 3.5 - 4.9 | EXTERNAL | | | | | mmol/L | LAB | | + + + + + + | Cl | 107 | 99 - 109 mmol/L | EXTERNAL | | | | | | LAB | | + + + + + + | CO2 | 25 | 23 - 32 mmol/L | EXTERNAL | | | | | | LAB | | + + + + + + | Anion Gap | 14 | 5 - 20 mmol/L | EXTERNAL | | | | | | LAB | | + + + + + + | Glucose, | 117 (H) | 65 - 99 mg/dL | EXTERNAL | | | Fasting | | | LAB | | + + + + + + | BUN | 13 | 8 - 25 mg/dL | EXTERNAL | | | | | | LAB | | + + + + + + | Creatinine | 0.7 | 0.50 - 1.00 | EXTERNAL | | | | | mg/dL | LAB | | + + + + + + | BUN/Creatin | 19 | | EXTERNAL | | | ine Ratio | | | LAB | | + + + + + + | Calcium | 7.5 (L) | 8.5 - 10.5 | EXTERNAL | | | | | mg/dL | LAB | | + + + + + + | Estimated | >60Comment: GFR <60: | mL/min/1.73m2 | EXTERNAL | | | GFR | CHRONIC KIDNEY DISEASE, | | LAB | | | | IF FOUND OVER A 3 MONTH | | | | | | PERIOD.GFR <15: KIDNEY | | | | | | FAILURE.FOR | | | | | | AMERICANS, MULTIPLY THE | | | | | | CALCULATED GFR BY | | | | | | 1.210.Testing performed | | | | | | at [facility], [address] | | | | | | [address] [place], | | | | | | [place] [address] | | | | + + + + + + + + | Specimen | + + | Blood specimen | | (specimen) | + + + +---------+ + + | Performing | Address | City/State/Zipcode | Phone Number | | Organization | | | | + +---------+ + + | EXTERNAL LAB | | | | + +---------+ + + POC ISTAT, CG8, Arterial (01/03/2017 3:07 PM PDT) + + + + + + | Component | Value | Ref Range | Performed | Pathologist | | | | | At | Signature | + + + + + + | PH ART | 7.351 | 7.350 - 7.450 | EXTERNAL | | | | | | LAB | | + + + + + + | PCO2 ART | 42 | 35 - 45 mmHg | EXTERNAL | | | | | | LAB | | + + + + + + | PO2 ART | 477 (H) | 80 - 105 mmHg | EXTERNAL | | | | | | LAB | | + + + + + + | HCO3 ART | 23 | 22 - 26 mmol/L | EXTERNAL | | | | | | LAB | | + + + + + + | POC | 24 | 23 - 27 mEq/L | EXTERNAL | | | APPEARANCE | | | LAB | | | UA | | | | | + + + + + + | Base | 2 | 0.0 - 2.0 | EXTERNAL | | | deficit | | mmol/L | LAB | | + + + + + + | O2 SAT ART | 100 (H) | 95 - 98 % | EXTERNAL | | | | | | LAB | | + + + + + + | Sodium, POC | 140 | 135 - 145 mEq/L | EXTERNAL | | | | | | LAB | | + + + + + + | Potassium, | 4.0 | 3.5 - 5.0 mEq/L | EXTERNAL | | | POC | | | LAB | | + + + + + + | Ionized | 1.17 | 1.12 - 1.32 | EXTERNAL | | | Calcium, | | mmol/L | LAB | | | POC | | | | | + + + + + + | Glucose, | 145 (H) | 65 - 99 mg/dL | EXTERNAL | | | POC | | | LAB | | + + + + + + | Hematocrit, | 28 (L) | 35.0 - 46.0 % | EXTERNAL | | | POC | | | LAB | | + + + + + + | Hemoglobin, | 9.5 (L)Comment: Testing | 11.6 - 15.5 | EXTERNAL | | | POC | performed at [facility] | g/dL | LAB | | | | [address];[place], [place] | | | | | | [address] | | | | + + + + + + + + | Specimen | + + | | + + + +---------+ + + | Performing | Address | City/State/Zipcode | Phone Number | | Organization | | | | + +---------+ + + | EXTERNAL LAB | | | | + +---------+ + + POC SONNY CG8, Arterial (01/03/2017 1:46 PM PDT) + + + + + + | Component | Value | Ref Range | Performed | Pathologist | | | | | At | Signature | + + + + + + | PH ART | 7.365 | 7.350 - 7.450 | EXTERNAL | | | | | | LAB | | + + + + + + | PCO2 ART | 42 | 35 - 45 mmHg | EXTERNAL | | | | | | LAB | | + + + + + + | PO2 ART | 337 (H) | 80 - 105 mmHg | EXTERNAL | | | | | | LAB | | + + + + + + | HCO3 ART | 24 | 22 - 26 mmol/L | EXTERNAL | | | | | | LAB | | + + + + + + | POC | 25 | 23 - 27 mEq/L | EXTERNAL | | | APPEARANCE | | | LAB | | | UA | | | | | + + + + + + | Base | 2 | 0.0 - 2.0 | EXTERNAL | | | deficit | | mmol/L | LAB | | + + + + + + | O2 SAT ART | 100 (H) | 95 - 98 % | EXTERNAL | | | | | | LAB | | + + + + + + | Sodium, POC | 142 | 135 - 145 mEq/L | EXTERNAL | | | | | | LAB | | + + + + + + | Potassium, | 3.1 (L) | 3.5 - 5.0 mEq/L | EXTERNAL | | | POC | | | LAB | | + + + + + + | Ionized | 1.00 (L) | 1.12 - 1.32 | EXTERNAL | | | Calcium, | | mmol/L | LAB | | | POC | | | | | + + + + + + | Glucose, | 142 (H) | 65 - 99 mg/dL | EXTERNAL | | | POC | | | LAB | | + + + + + + | Hematocrit, | 20 (LL) | 35.0 - 46.0 % | EXTERNAL | | | POC | | | LAB | | + + + + + + | Hemoglobin, | 6.8 (LL)Comment: Testing | 11.6 - 15.5 | EXTERNAL | | | POC | performed [place] [facility] | g/dL | LAB | | | | [address];[place], [place] | | | | | | [address] | | | | + + + + + + + + | Specimen | + + | | + + + +---------+ + + | Performing | Address | City/State/Zipcode | Phone Number | | Organization | | | | + +---------+ + + | EXTERNAL LAB | | | | + +---------+ + + POC ANTELMO DENNIS Arterial (01/03/2017 12:08 PM PDT) + + + + + + | Component | Value | Ref Range | Performed | Pathologist | | | | | At | Signature | + + + + + + | PH ART | 7.375 | 7.350 - 7.450 | EXTERNAL | | | | | | LAB | | + + + + + + | PCO2 ART | 41 | 35 - 45 mmHg | EXTERNAL | | | | | | LAB | | + + + + + + | PO2 ART | 382 (H) | 80 - 105 mmHg | EXTERNAL | | | | | | LAB | | + + + + + + | HCO3 ART | 24 | 22 - 26 mmol/L | EXTERNAL | | | | | | LAB | | + + + + + + | POC | 25 | 23 - 27 mEq/L | EXTERNAL | | | APPEARANCE | | | LAB | | | UA | | | | | + + + + + + | Base | 1 | 0.0 - 2.0 | EXTERNAL | | | deficit | | mmol/L | LAB | | + + + + + + | O2 SAT ART | 100 (H) | 95 - 98 % | EXTERNAL | | | | | | LAB | | + + + + + + | Sodium, POC | 141 | 135 - 145 mEq/L | EXTERNAL | | | | | | LAB | | + + + + + + | Potassium, | 2.6 (LL) | 3.5 - 5.0 mEq/L | EXTERNAL | | | POC | | | LAB | | + + + + + + | Ionized | 1.05 (L) | 1.12 - 1.32 | EXTERNAL | | | Calcium, | | mmol/L | LAB | | | POC | | | | | + + + + + + | Glucose, | 184 (H) | 65 - 99 mg/dL | EXTERNAL | | | POC | | | LAB | | + + + + + + | Hematocrit, | 23 (LL) | 35.0 - 46.0 % | EXTERNAL | | | POC | | | LAB | | + + + + + + | Hemoglobin, | 7.8 (LL)Comment: Testing | 11.6 - 15.5 | EXTERNAL | | | POC | performed at [facility] | g/dL | LAB | | | | [address];[place], [place] | | | | | | [address] | | | | + + + + + + + + | Specimen | + + | | + + + +---------+ + + | Performing | Address | City/State/Zipcode | Phone Number | | Organization | | | | + +---------+ + + | EXTERNAL LAB | | | | + +---------+ + + documented in this encounter Visit Diagnoses + + | Diagnosis | + + | Primary osteoarthritis of left shoulder Primary localized osteoarthrosis, shoulder | | region | + + | Chronic pain syndrome | + + | Essential hypertension, benign | + + | Insomnia due to medical condition Insomnia due to medical condition classified | | elsewhere | + + documented in this encounter
--- OUTSIDE RECORDS SUMMARY | ~2020-05-22 | XMS | Encounter Summary ---
Demographics + + + | Address | [address] | | | [place] [address] | + + + | Home Phone [...] Team Providers + +------+ + | Care Financial Services Counselor Name | Role | Phone | + +------+ + | Paul Hogan MD | PCP | | + +------+ + Encounter Details +--------+ + + + + | Date | Type | Department | Care Team | Description | +--------+ + + + + | 04/14/ | Hospital | [facility] | Aric Wilcox | | | 2016 | Encounter | MED CTR XRAY [address] | [address] | | | | | [place] | [address] [place] | | | | | [place] [address] | [phone] | | | | | [phone] | | | +--------+ + + + [...] tablets by | 90 | 0 | 02/25/20 | | | (ROXICODONE) 5 mg | mouth every 4 hours | tablet | | 16 | 7 | | tablet | as needed for [...] 04/14/2016 1:46 PM HISTORY: Postop . | [facility] | | COMPARISON: 01/19/2016 FINDINGS: Posterior spinal fusion | [facility] | | hardware seen at the levels of L4-S1, with disc spacer placement at | [facility] | | the intervening levels, without evidence [...] + | Aleksander Torres Results In - 04/14/2016 2:56 PM PDT [...] | [facility] | [address] | [place] | [phone] | | [facility] | | [address] | | | - IMAGING | | | | + + + + + documented in this encounter Visit Diagnoses Not on filedocumented in this encounter"
--- OUTSIDE RECORDS SUMMARY | ~2020-05-22 | XMS | Encounter Summary ---
Demographics + + + | Address | [address] | | | [place] [address] | + + + | Home Phone [...] Team Providers + +------+ + | Care Tallier Name | Role | Phone | + [...] | | [address] | [address] [place], | | | | | [place], [place] | [place] [address] | | | | | [address] | [phone] | | | | | [phone] | | | +--------+ + + + [...] SOUZA MD has created this entry using [employer] | | | Medical Voice Recognition software and Blink macros. The entry | | | has [...] has | | created this entry using [employer] software and Blink | | macros. The entry has been [...] SOUZA MD has created this entry using [employer] | |Recognition software and Blink macros. The entry has been reviewed and | |there may still exist sound alike word errors. | | | + + documented in this encounter Visit Diagnoses Not on filedocumented in this encounter"
--- OUTSIDE RECORDS SUMMARY | ~2020-05-22 | XMS | Encounter Summary ---
Demographics + + + | Address | [address] | | | [place] [address] | + + + | Home Phone [...] Author + + + | Author | [facility] | | | and [place] | + + + | Organization | [facility] | | | [...] Team Providers + +------+ + | Care Livestock Farmworker Name | Role | Phone | + [...] | | [address] | [place] [address] | | | | | [place] | [phone] | | | | | [address] | | | | | | [phone] | | | +--------+ + + + [...]
--- OUTSIDE RECORDS SUMMARY | ~2020-05-22 | XMS | Encounter Summary ---
Demographics + + + | Address | [address] | | | [place] [address] | + + + | Home Phone [...] Team Providers + +------+ + | Care Arboriculturist Name | Role | Phone | + [...] | | [address] | [place] [address] | | | | | [place] | [phone] | | | | | [address] | | | | | | [phone] | | | +--------+ + + + [...] claustrophobia medication for her upcoming MRI at [facility] Please approve/deny 15 3:13 PM PDTTelephone Encounter - Chela Alba - 03/09/2015 3:00 PM PDTGoldmeir called back regarding scheduling her MRI. She would like to have this completed at [facility] and will cassi l them to schedule. [...]
--- OUTSIDE RECORDS SUMMARY | ~2020-05-22 | XMS | Encounter Summary ---
Demographics + + + | Address | [address] | | | [place] [address] | + + + | Home Phone | | + + + | Preferred Language | Unknown | + + + | Marital Status | | + + + | Druze Affiliation | [id number] | + + + [...] Team Providers + +------+ + | Care Clinching Machine Operator Name | Role | Phone | + +------+ + | Ethan Solomon MD | PCP | | + +------+ + Encounter Details +--------+ + + + + | Date | Type | Department | Care Team | Description | +--------+ + + + + | 04/25/ | Orders Only | [facility] | Sarkis Garcia DNP | | | 2016 | | VASCULAR SURGERY | [address] | | | | | [address] | [place], [place] | | | | | [address] | [address] | | | | | [place], [place] | | | | | | [address] | | | | | | [phone] | | | +--------+ + + + [...]
--- OUTSIDE RECORDS SUMMARY | ~2020-05-22 | XMS | Encounter Summary ---
Demographics + + + | Address | [address] | | | [place] [address] | + + + | Home Phone [...] Team Providers + +------+ + | Care Mat Machine Tender Name | Role | Phone | + +------+ + | Paul Hogan MD | PCP | | + +------+ + Encounter Details +--------+ + + + + | Date | Type | Department | Care Team | Description | +--------+ + + + + | 01/03/ | Emergency | [facility] | | | | 2016 | | MEDICAL CENTER | | | | | | EMERGENCY CENTER | | | | | | [address] | | | | | | [place] | | | | | | [address] | | | | | | [phone] | | | +--------+ + + + [...] + + + +---------+ + + | CHAN PO | Take 3 capsules by | | 0 | | | | | mouth nightly. | | | | 9 | + + + +---------+ + + documented as of this encounter Plan of Treatment Not on filedocumented as of this encounter Visit Diagnoses Not on filedocumented in this encounter"
--- OUTSIDE RECORDS SUMMARY | ~2020-05-22 | XMS | Encounter Summary ---
Demographics + + + | Address | [address] | | | [place] [address] | + + + | Home Phone [...] Providers + +------+ + | Care Financial Systems Director Name | Role | Phone | + [...] | | | | | | | [place] | | | | | | | [...] Interbody | | | | [address] | [place] [address] | Fusion w/ L5-S1 | | | | [place] | [phone] | Transforaminal | | | | [address] | | Lumbar Interbody | | | | [phone] | | Fusion | +--------+---------+ + + [...] might be differen t from the original. [facility] NEUROSURGERY DISCHARGE SUMMARY Patient Name: Mellisa [...] might be differen t from the original. [facility] PROGRESS NOTE Pt. Name/Age/: Mellisa Bryant Sjurset 80 y.o. 1935 Med. Record Number: [id number] Date of admission: 12/14/2015 Subjective: The patient [...] Electronically signed by: Aric Wilcox, 12/15/2015 7:21 [facility] documented in th is encounter H&P Notes Umer Garcia MD - 12/14/2015 3:17 PM [facility] SURGICAL INTERIM HISTORY AND PHYSICAL [...] signed by: Umer Garcia MD 12/14/2015 15:17 [facility] aUmer tenorio MD - 12/02 9:50 AM PDT Umer Garcia MD [address] [facility], [address] [place], [place] [address] FAX: NEUROSURGERY FOLLOW-UP CHIEF COMPLAINT: Chief Complaint [...] once pt is awake. Encourage ambulation to [facility]. 6. Give stool softener and [...] multiple contributors. ADLs UB Dressing, Level of [place]: set up required Assistive Device: none UB Dressing Assess/Train, Position: sitting LB, Level of [place]: minimum assist (75% patient effort), set up required, supervisio n required Assistive Device: none LB Dressing Assess/Train, Position: sitting, standing LB Dressing Assess/Train, Impairments: pain Toileting, Level of [place]: supervision required, set up required Assistive Device: bedside commode Toileting Assess/Train, Position: sitting Toileting Assess/Train, Impairments: strength decreased Grooming, Level of [place]: set up required Assistive Device: none Grooming Assess/Train, Position: standing Toilet, Level of [place]: set up required Toilet, Assistive Device: 2 [...] lan of Care - B Agustin quiros, AMMUNITION OFFICER - 12/16/2015 4:09 AM PDTProblem: Patient Care [...] via oximetry with SpO2 >92% by 10. Mlelisa will be able to don LSO independently [...] once pt is awake. Encourage ambulation to [facility]. 6. Give stool softener and [...] sats 95 %, lan of Care - Keliy Swift OT - 12/15/2015 3:41 PM PDT [...] Discectomy Fusion; Surgeon: Umer Garcia MD; Location: [facility] MAIN OR Back surgery Right Foot surgery bilateral little toes & left big toe Tonsillectomy and adenoidectomy Lumbar spine surgery Left 12/14/2015 Procedure: L4-5 Lateral Anterior Interbody Fusion w/ L5-S1 Transforaminal Lumbar Interb dominique Fusion; Surgeon: Umer Garcia MD; Location: [facility] MAIN OR Allergies Allergen Reactions Codeine [...] assess Pt's functional transfer OOB and to [facility]. She was connected to oxygen monitor [...] OT Equipment Recommendations: 2 wheeled walker (FWW), cigar inspector, shower chair, seat riser Identified Problems Needing Skilled Intervention: Generalized post-op debility, aerobic c apacity/endurance Planned Interventions:Planned Therapy Interventions: ADL retraining, transfer training, ort hotic fitting/training Patient Status/Goals Reflects last filed data of patient status; may be from multiple contributors. ADLs LB, Level of [place]: set up required Assistive Device: none LB Dressing Assess/Train, Position: sitting, standing LB Dressing Assess/Train, Impairments: pain Toileting, Level of [place]: supervision required, set up required Assistive Device: bedside commode Toileting Assess/Train, Position: sitting Toileting Assess/Train, Impairments: strength decreased Grooming, Level of [place]: set up required Assistive Device: none Grooming Assess/Train, Position: standing Transfers Toilet, Level of [place]: set up required Toilet, Assistive Device: 2 [...] have a BM by POD 3. 7. Mlelisa will be free of s/s of infections [...] continuosly. lan of Care - Otto Perkins, AMMUNITION OFFICER - 12/15/2015 2:19 PM PDTProblem: Patient Care [...] planning. Mellisa lives with her son in [place]. She will have a caregiver during the day and her so n will help out at night. She will need a FWW, which she doesn't have a preference on the [employer]. This CM will use [employer]. Faxed order and PT notes. Received the [...] once pt is awake. Encourage ambulation to [facility]. 6. Give stool softener and [...] Discectomy Fusion; Surgeon: Umer Garcia MD; Location: [facility] MAIN OR Back surgery Right Foot [...] be from multiple contributors. Gait Level of [place] : supervision required, verbal cues required Assistive Device: 2 wheeled walker (FWW) Distance (feet): 350 Stairs Number of Stairs: 1 Handrail Location: right side (ascending) Level of [place]: verbal cues required, contact guard assist Technique Used: step to step (ascending), step to step (descending) Impairments: impaired balance Transfers Sit-Stand, Level of [place]: supervision required, verbal cues required Stand-Sit, Level of [place]: supervision required, verbal cues required [id number], Assistive Device: 2 wheeled walker (FWW) Impairments: strength decreased, sensation decreased, impaired balance, postural control im paired, pain Bed Mobility Roll Left, Level of [place]: not tested Scoot/Bridge, Level of [place]: verbal cues required, supervision required Supine to Sit, Level of [place]: verbal cues required, contact guard assist Sit to Supine, Level of [place]: moderate assist (50% patient effort), verbal cues [...] Activity Type: supine to sit/sit to supine [place] Level: independent Assistive Device: none Time to Achieve: 2 days Goal Status: new Transfer Training Goal, Activity Type: sit to stand/stand to sit [place] Level: modified independence Assistive Device: 2 wheeled walker (FWW) Time to Achieve: 2 days Goal Status: new Gait Training Goal, [place] Level: modified independence Assistive Device: 2 wheeled walker (FWW) Distance: 350 Time to Achieve: 2 days Goal Status: new Stairs Goal, [place] Level: supervision required Assistive Device: none Number [...] and walk around a little. Patient is Rastafari and I wished her good health. Spiritual Intervention: Patient would like to get well soon and go home to her 15 year old dog Chemo. She was very polite and nice. Had a good visit with her and wished her good hea lt. Spiritual Outcomes: Patient thank me for the visit. Spiritual Goals/Follow up: Channel Specialist will continue to provide ongoing emotional/spiritual support for patient as requested. lan of Agustin Raymond, AMMUNITION OFFICER - 12/15/2015 5:09 AM PDTProblem: Patient Care [...] once pt is awake. Encourage ambulation to [facility]. 6. Give stool softener and [...] Mellisa Bryant Sjurset 80 y.o. female 1935 [id number] Proc. Date 12/14/2015 Preop Dx Lumbar degenerative [...] Roldan Surgeon Umer Garcia MD - Primary Any Commodity Sales Deliverer GABRIEL Noonan EBL 244 Findings L4-S1 DDD, [...] PEEK spacer was prepared filling it with [place]/BMP and then t amping it into the [...] signed by: Umer Garcia MD 12/14/2015 18:23 [facility] rief Op Note - Jacob Garcia MD - 12/14/2015 6:23 PM PDTFormatting of this note might be different from the origin al. Brief Operative Note Mellisa Bryant Sjurset 80 y.o. female 1935 [id number] Proc. Date 12/14/2015 Preop Dx Lumbar degenerative [...] Roldan Surgeon Umer Garcia MD - Primary Any Commodity Sales Deliverer GABRIEL Noonan EBL 244 Findings L4-S1 DDD, severe at L5-S1. B bracing. Complications none Specimens * No specimens in log * Drains LIZBETH Electronically signed by: Umer Garcia MD 12/14/2015 18:23 [facility] Garcia MD at 016 [...] + + | Performing | Address | City/State/[facility]code | Phone Number | | Organization [...] [address] | [place] | [phone] | | [facility] | | [address] | | | - LABORATORY | | [...] ST. | [address] | [place], [place] | [phone] | | [facility] | | [address] | | | - LABORATORY | | [...] | non- | FILTRATION | mL/min/1.73m2 | [facility] | | | Cuban | RATE,ESTIMATED | | MEDICAL | | | | mL/min/1.76v7Iooo than | | CENTER - | | [...] + | [facility] | [address] | [place] | [phone] | | [facility] | | [address] | | | - LABORATORY | | [...] | | | | URI GUTIERREZ MD ([id number]) | | | | | | on [...]
--- OUTSIDE RECORDS SUMMARY | ~2020-05-22 | XMS | Encounter Summary ---
Demographics + + + | Address | [address] | | | [place] [address] | + + + | Home Phone [...] Team Providers + +------+ + | Care Importer Or Exporter Name | Role | Phone | + [...] | | | IMAGING [address] | | | | | [address] | [place] [address] | | | | | [place] [address] | | | | | | [phone] | | | +--------+ + + + [...] for comparison only - no result from [facility]. | | + + + + +---------+ + + | Performing | Address | City/State/Zipcode | Phone Number | | Organization | | | | + +---------+ + + | [facility] | | | | + +---------+ + + documented in this encounter Visit Diagnoses Not on filedocumented in this encounter"
--- OUTSIDE RECORDS SUMMARY | ~2020-05-22 | XMS | Encounter Summary ---
Demographics + + + | Address | [address] | | | [place] [address] | + + + | Home Phone | | + + + | Preferred Language | Unknown | + + + | Marital Status | | + + + | Taoism Affiliation | [id number] | + + + | Race | White | + + + | Ethnic Group | Not or | + + + Author + + + | Author | [facility] | | | and [place] | + + + | Organization | [facility] | | [...] + +------+ + | Care Automobile Damage Appraiser Name | Role | Phone | + +------+ + | Ethan Solomon MD | PCP | | + +------+ + Encounter Details +--------+ + + + + | Date | Type | Department | Care Team | Description | +--------+ + + + + | /03/ | Orders Only | [facility] | Dariel Hednrix, | | | 2016 | | [facility] [address] | MD [address] | | | | [address] | [place] [address] | | | | | [place], [place] | [phone] | | | | | [address] | | | | | | [phone] | | | +--------+ + + + [...]
--- OUTSIDE RECORDS SUMMARY | ~2020-05-22 | XMS | Encounter Summary ---
Demographics + + + | Address | [address] | | | [place] [address] | + + + | Home Phone | | + + + | Preferred Language | Unknown | + + + | Marital Status | | + + + | Zoroastrianism Affiliation | 1028 | + + + [...] Team Providers + +------+ + | Care Nfl Player Name | Role | Phone | [...] | | [address] | [place] [address] | | | | | [place] | [phone] | | | | | [address] | | | | | | [phone] | | | +--------+ + + + [...] AM PSTTelephone Encounter - T Marcia Talamantes, Computer Systems Software Architect - 10/09/2018 3:03 PM PSTI spoke with the radiology department at [facility] and confirmed that Mellisa has not had a recent Lumbar CT. Order has been place for one. Electronically signed by Marcia Tyler Computer Systems Software Architect destiny t 10/09/2018 3:08 PM PSTdocumented in this encounter Plan of Treatment Not on filedocumented as of this encounter Visit Diagnoses Not on filedocumented in this encounter"
--- OUTSIDE RECORDS SUMMARY | ~2020-05-22 | XMS | Encounter Summary ---
Demographics + + + | Address | [address] | | | [place] [address] | + + + | Home Phone [...] Team Providers + +------+ + | Care Chief Medical Physicist Name | Role | Phone | + [...] + + | 04/30/ | Surgery | [facility] | Umer Garcia MD | C5-6, C6-7 Anterior | | 2014 | | MED CTR OR INTRA OP | [address] | Cervical Discectomy | | | | [address] | [place] [address] | Fusion | | | | [place] | [phone] | | | | | [address] | | | | | | [phone] | | | +--------+---------+ + + + [...] might be differen t from the original. [facility] NEUROSURGERY DISCHARGE SUMMARY Patient Name: Mellisa Maldonadot [...] Care Everywhere.CERVICAL FUSION , DISCHARGE INSTRUCTIONS FOR ([place])CERVICAL DISK SURGERY, DISCHARGE INSTRUCTIONS FOR ([facility])documented in this encounter Medications at Time [...] intact documented in this encounter H&P Notes Uemr Garcia MD - 04/30/2015 7:[facility]IM HISTORY AND [...] by: Umer Garcia MD 04/30/2015 7:59 [facility] mer Garcia MD - 04/24 12:07 PM PDT Umer Garcia MD [address] [facility], [address] [place] [address] FAX: NEUROSURGERY HISTORY AND PHYSICAL EXAMINATION CHIEF [...] have been gradually worsening. [facility] She also has [...] has no apparent deficits with short or snf memory. MOTOR EXAM: (5 IS NORMAL) * Indicates pain limited MUSCLE/ MOVEMENT: RIGHT LEFT Deltoids 5 5 Biceps 5 5 Triceps 5 5 Wrist Flexion 5 5 Wrist Extension 5 5 Median Intrinsics 5 5 Ulnar Intrinsics 5 5 Math Specialist Strength 5 5 Hip Flexion 5 5 [...] about her discharge plans. She lives in [place] alone. She will hav e her children stay and help as needed. She did decline home health. She is very independent and will not have any discharge needs. She uses [facility] in [place] for her medications. Her son will transport [...] by: Trisha Alarcon PTA, 05/01/2015 12:02 lan [facility] Juana Paul OT - 05/01/2015 9:38 AM [...] needed a liquid wash with bread texture. REMOTE ADVISOR rec dysphagia adv anced textures, and educated Pt on diet texture modification should during the healing proce ss. Pt verbalized understanding. No further REMOTE ADVISOR services needed at this time. Pt is DC'd/ Speech language pathology will follow Mellisa Carrizales until discharge from therapy or discharged from the hospital. Speech Language Pathology Discharge Recommendations are: Recommended discharge disposition: home with family/caregiver Post discharge speech language pathology recommendation: no further Speech Therapy Planned Interventions: patient/caregiver education, diet texture modification REMOTE ADVISOR Diagnosis: Mild pharyngeal dysphagia At bedside, signs [...] Mobility Skill: Rolling/Turning, PT Eval Level Of [place]: supervision/set-up Bed Mobility Skill: Sit To Supine, Rehab Eval Level Of [place]: Sit/Supine: supervision/set-up Bed Mobility Skill: Supine To Sit, Rehab Eval Level Of [place]: Supine/Sit: supervision/set-up Transfers Transfer Skill: Bed To Chair/Chair To Bed, Rehab Eval Level Of [place]: Bed To Chair: supervision/set-up Goal Transfers Bed to Chair/Chair to Bed Bed to Chair/Chair to Bed STG Status: New STG Transfers Bed to Chair/Chair to Bed: independent Transfer Skill: Sit To Stand, Rehab Eval Level Of [place]: Sit/Stand: supervision/set-up Goal Transfers Sit to Stand Sit to Stand STG Status: New STG Transfers Sit to Stand : independent Gait Gait Skills, PT Eval Level Of [place]: Gait: supervision/set-up Gait Distance (feet): 200 Goal Gait Gait STG Status: New STG Gait: independent STG Gait Distance (feet): 200 Stairs Stair, Performance Number Of Stairs: 4 Stair Railings: present on right side Level Of [place]: contact guard assist (75% patient effort) Goal [...] Mellisa Bryant Sjurset 80 y.o. female 1935 [id number] Proc. Date 04/30/2015 Preop Dx Cervical spondylosis [...] allograft prior to insertion was filled with [place] bon e. The structural allograft bone was then tamped into place at C5-6 and C6-7. Anterior cervical plating was then performed by holding a 37 mm Zevo plate in place over th e segments with holding pins. Fluoroscopy was used to confirm its appropriate positioning a nd then fuel pilot engineer holes were made in the C5-C7 vertebral [...] signed by: Umer Garcia MD 04/30/2015 10:13 [facility] rief Op Note - Jacob Garcia MD - 04/30/2015 10:13 AM PDTFormatting of this note might be different from the origin al. Brief Operative Note Mellisa Bryant Sjurset 80 y.o. female 1935 [id number] Proc. Date 04/30/2015 Preop Dx Cervical spondylosis with myelopathy Cervical radiculopathy Cervical degenerative disc disease Cervical foraminal stenosis Cervcal stenosis Postop Dx same Procedure 1. Anterior cervical discectomy and fusion C5-6, C6-7 2. Anterior cervical plating C5-7 using Zevo 3. Anterior structural allograft bone C5-6, C6-7 4. Microsurgical technique with use of operating microscope Anesthesia General, Dr. Vicente Surgeon Surgeon(s) and Role: * Uemr Garcia MD - Primary * GABRIEL Zhang - Assi sting EBL 34 Findings Severe osteophytes and DDD. Good bone. No brace required. Complications none Specimens * No specimens in log * Drains Drain/Device Site 04/30/15 0941 #1 Left: anterior cervical spine collapsible closed dev ice (Active) Electronically signed by: Umer Garcia MD 04/30/2015 10:13 [facility] documented in this encou nter Plan of [...]
--- OUTSIDE RECORDS SUMMARY | ~2020-05-22 | XMS | Encounter Summary ---
Demographics + + + | Address | [address] | | | [place] [address] | + + + | Home Phone [...] Team Providers + +------+ + | Care Systematic Theology Professor Name | Role | Phone | + +------+ + PCP | Unavailable | + +------+ + Encounter Details +--------+ + + + + | Date | Type | Department | Care Team | Description | +--------+ + + + + | 05/31/ | [facility] | [facility] | Aly Beal | | | 2010 | Encounter | MED CTR XRAY [address] | [address] | | | | | [place] | [place] | | | | | [place] [address] | [address] | | | | | [phone] | | | +--------+ + + + [...] At | + + + | [facility] Diagnostic Imaging Department | [facility] | | [address] [facility] | [facility] | | PROCEDURE NOTE LUMBAR FACET | [...] Transcribed Date/Time: | | | 05/31/2011 18:44 Staff Scientist: <Electronically Signed | | | by Aly Beal MD> 06/03/11 1735 | | + + + + + | Procedure Note | + + | Aleksander Torres Conversion - 10/18/2013 3:51 PM [facility] | | Diagnostic Imaging Department [address] [place] [address] | | PROCEDURE NOTE LUMBAR FACET INJECTIONS, [...] | Signed by Aly Beal MD> 06/03/11 8255 | |Prior to the start of the [...] 18:11 | |Transcribed Date/Time: 05/31/2011 18:44 | |Staff Scientist: | |<Electronically Signed by Aly Beal MD> [...]
--- OUTSIDE RECORDS SUMMARY | ~2020-05-22 | XMS | Encounter Summary ---
Demographics + + + | Address | [address] | | | [place] [address] | + + + | Home Phone [...] Providers + +------+ + | Care Director Epidemiology Name | Role | Phone | + [...] | | [address] | [place] [address] | | | | | [place] | [phone] | | | | | [address] | | | | | | [phone] | | | +--------+--------+ + + + [...] to patient's address on file. Article Number: [id number] elephone Encounter - Thais Stephenson RN - [...] certified mail. [address] [place] [address] Please Approve or Deny documente d in this encounter Plan of Treatment Not on filedocumented as of this encounter Visit Diagnoses Not on filedocumented in this encounter"
--- OUTSIDE RECORDS SUMMARY | ~2020-05-22 | XMS | Encounter Summary ---
Demographics + + + | Address | [address] | | | [place] [address] | + + + | Home Phone [...] Providers + +------+ + | Care Vegetable Tester Name | Role | Phone | [...] | | | | | Cervical | [facility] | | | | | spondylosis | [place] | [address] | | | | | with | [address] | [place] | | | | | myelopathy | [address]VE | [place] | | | | | S/P cervical | [place] | [address] | | | | | spinal | [address] | Phone: | | | | | fusion | Phone: | [phone] | | | | | Procedures | [phone] | Fax: | | | | | MRI Cervical | Fax: | [phone] | | | | | Spine wo | [phone] | | | | | | Contrast | | | +--------+--------+ + + + + Reason for Visit +--------+ + | Reason | Comments | +--------+ + | Other | Discuss neck pain | +--------+ + Encounter Details +--------+---------+ + + + | Date | Type | Department | Care Team | Description | +--------+---------+ + + + | 07/17/ | Office | [facility] | Aric Wilcox | Cervical spondylosis | | 2017 | Visit | NEUROSURGERY [address] | [address] | with myelopathy | | | | [address] | [address] [place], [place] | (Primary Dx); S/P | | | | [place], [place] | [address] | cervical spinal | | | | [address] | | fusion | | | | [phone] | | | +--------+---------+ + + + [...] from the original. Aric Wilcox PA-C [address] [facility], [address] [place], [place] [address] FAX: [phone] NEUROSURGERY HISTORY AND PHYSICAL EXAMINATION CHIEF COMPLAINT: [...] Fusion; Surgeon: Umer Garcia MD; Loc ation: [facility] MAIN OR FOOT SURGERY bilateral little toes & left big toe HYSTERECTOMY LUMBAR SPINE SURGERY Left 12/14/2015 Procedure: L4-5 Lateral Anterior Interbody Fusion w/ L5-S1 Transforaminal Lumbar Interbody Fusion; Surgeon: Umer Garcia MD; Location: [facility] MAIN OR SHOULDER ARTHROSCOPY Bilateral SHOULDER SURGERY Left 01/03/2017 Dr. Rausch [facility]. TONSILLECTOMY AND ADENOIDECTOMY CURRENT MEDICATIONS: [...] has no apparent deficits with short or senior care memory. CRANIAL NERVES: II: Acuity is intact. [...] Intrinsics 5 5 Ulnar Intrinsics 5 5 Client Service Executive Strength 5 5 Hip Flexion 5 5 [...]
--- OUTSIDE RECORDS SUMMARY | ~2020-05-22 | XMS | Encounter Summary ---
Demographics + + + | Address | [address] | | | [place] [address] | + + + | Home Phone [...] + + + | Author | [facility] | | | and [place] | + + + | Organization | [facility] | | [...] Team Providers + +------+ + | Care Form Setter Supervisor Name | Role | Phone | [...] | | | | | radiculopath | [place], [place] | [place], [place] | | | | | y [place] | [address] | [address] | | | | | stenosis of | Phone: | Phone: | | | | | cervical | [phone] | [phone] | | | | | region S/P | Fax: | Fax: | | | | | lumbar | [phone] | [phone] | | | | | fusion | [...] + | 01/18/ | Office | [facility] | Aric Wilcox | Spinal stenosis, | | 2016 | Visit | NEUROSURGERY [address] | [address] | lumbar (Primary Dx); | | | | [address] | [address] [place], [place] | Lumbar | | | | [place] | [address] | radiculopathy; | | | | [address] | | Foram[place] stenosis | | | | [phone] | | of cervical region; | | [...] your back and use good technique when crab picker things and bending. Electronic[employer] lly signed by GABRIEL Noonan at 01/19/2016 12:47 PM PDT documented in this encounter Progress Notes Aric Wilcox PA - 01/19/2016 12:47 PM PDTFormatting of this note might be differen t from the original. GABRIEL Alston [address] [facility], [address] [place] [address] FAX: NEUROSURGERY FOLLOW-UP CHIEF COMPLAINT: Chief Complaint [...] Date DVT of leg (deep venous thrombosis) ([facility]) Osteoarthritis Depression Gastric reflux Hypertension Hyperlipidemia [...] COMPARISON: 01/19/2016 FINDINGS: Posterior spinal fusion | [facility] | | hardware seen at the levels of L4-S1, with disc spacer placement at [facility] | | the intervening levels, [...] [address] | [place] | [phone] | | [facility] | | [address] | | | - IMAGING | | [...]
--- OUTSIDE RECORDS SUMMARY | ~2020-05-22 | XMS | Encounter Summary ---
Demographics + + + | Address | [address] | | | [place] [address] | + + + | Home Phone [...] | Author | [facility] | | | and [place] | + + + | Organization | [facility] | | | and [...] Team Providers + +------+ + | Care Block Cableman Name | Role | Phone | + +------+ + | Paul Hogan MD | PCP | | + +------+ + Encounter Details +--------+ + + + + | Date | Type | Department | Care Team | Description | +--------+ + + + + | 10/20/ | Hospital | [facility] | Umer Garcia MD | S/P cervical spinal | | 2017 | Encounter | MED CTR XRAY [address] | [address] | fusion | | | | [place] | [place] [address] | | | | | [place] [address] | [phone] | | | | | [phone] | | | +--------+ + + + [...] + + | Performing | Address | City[facility] | Phone Number | | Organization | | | | + + + + + | [address] | [address] | [place] | [phone] | | [facility] | | [address] | | | - IMAGING | | | | + + + + + documented in this encounter Visit Diagnoses + + | Diagnosis | + + | S/P cervical spinal fusion Arthrodesis status | + + documented in this encounter"
--- OUTSIDE RECORDS SUMMARY | ~2020-05-22 | XMS | Encounter Summary ---
Demographics + + + | Address | [address] | | | [place] [address] | + + + | Home Phone [...] Team Providers + +------+ + | Care Steak Tenderizer Machine Name | Role | Phone | [...] | | [address] | [place] [address] | | | | | [place] | [phone] | | | | | [address] | | | | | | [phone] | | | +--------+ + + + [...]
--- OUTSIDE RECORDS SUMMARY | ~2020-05-22 | XMS | Encounter Summary ---
Demographics + + + | Address | [address] | | | [place] [address] | + + + | Home Phone | | + + + | Preferred Language | Unknown | + + + | Marital Status | | + + + | Congregational Affiliation | 1028 | + + + | Race | White | + + + | Ethnic Group | Not or | + + + Author + + + | Author | [facility] | | | and [place] | + + + | Organization | [facility] | [...] Team Providers + +------+ + | Care Support Architect Name | Role | Phone | + +------+ + | Paul Hogan MD | PCP | | + +------+ + Encounter Details +--------+ + + + + | Date | Type | Department | Care Team | Description | +--------+ + + + + | 12/06/ | Orders Only | [facility] | Aric Wilcox | Lumbar radiculopathy | | 2016 | | NEUROSURGERY [address] | [address] | (Primary Dx); S/P | | | | [address] | [address] [place], [place] | lumbar fusion | | | | [place], [place] | [address] | | | | | [address] | | | | | | [phone] | | | +--------+ + + + [...] [address] | [place] | [phone] | | [facility] | | [address] | | | - IMAGING | | | | + + + + + documented in this encounter Visit Diagnoses + + | Diagnosis | + + | Lumbar radiculopathy - Primary Thoracic or lumbosacral neuritis or radiculitis, | | unspecified | + + | S/P lumbar fusion Arthrodesis status | + + documented in this encounter"
--- OUTSIDE RECORDS SUMMARY | ~2020-05-22 | XMS | Encounter Summary ---
Demographics + + + | Address | [address] | | | [place] [address] | + + + | Home Phone | | + + + | Preferred Language | Unknown | + + + | Marital Status | | + + + | Protestant Affiliation | 1028 | + + + | Race | White | + + + | Ethnic Group | Not or | + + + Author + + + | Author | [facility] | | | and [place] | + + + | Organization | [facility] | | | [...] Team Providers + +------+ + | Care Tapper Balance Wheel Screw Hole Name | Role | Phone | + [...] [address]VE | | | | | [address] [facility] [address] | [place] [address] | | | | | [place] | [phone] | | | | | [address] | | | | | | [phone] | | | +--------+ + + + [...] Miscellaneous Notes Telephone Encounter - Mulu Zaldivar, Shearer Screen Measurer And Trimmer - 04/28/2015 9:39 AM [facility] ed patient to inform her that the Rx she requested last week for pain medication is ready fo r product picker. ( Patient is having surgery on [...]
--- OUTSIDE RECORDS SUMMARY | ~2020-05-22 | XMS | Encounter Summary ---
Demographics + + + | Address | [address] | | | [place] [address] | + + + | Home Phone [...] Team Providers + +------+ + | Care Acoustical Carpenter Name | Role | Phone | [...] | | [address] | [place] [address] | | | | | [place] | [phone] | | | | | [address] | | | | | | [phone] | | | +--------+ + + + [...]
--- OUTSIDE RECORDS SUMMARY | ~2020-05-22 | XMS | Encounter Summary ---
Demographics + + + | Address | [address] | | | [place] [address] | + + + | Home Phone [...] Providers + +------+ + | Care Head Greenskeeper Name | Role | Phone | + [...] | | [address] | [place] [address] | S/P lumbar fusion | | | | [place] | [phone] | | | | | [address] | | | | | | [phone] | | | +--------+---------+ + + + [...] t he original. Umer Garcia MD [address] [facility], [address] [place] [address] FAX: NEUROSURGERY FOLLOW-UP CHIEF COMPLAINT: Chief Complaint [...] hope that they can avoid additional surgery. exterminator helper termite pain medication should be continued and tapered [...] 2 or 3 Views (10/20/2016 9:[address] [facility]) + + | Specimen | [...] ST. | [address] | [place] | [phone] | | [facility] | | [address] | | | - IMAGING | | | | + + + + + XR Lumbar Spine 2 or 3 Vw (10/20/2016 9:[address] [facility]) + + | Specimen | + + | | + + + + + | Narrative | Performed At | + + + | TWO VIEWS LUMBAR SPINE 10/20/2016 9:16 AM CLINICAL HISTORY: Postop | [facility] | | fusion COMPARISON: LUMBAR RADIOGRAPHS APRIL 2016 AND MULTIPLE | [facility] | | PREVIOUS RADIOGRAPHS FINDINGS: Five non rib-bearing, lumbar type | [facility] | | vertebrae are visible. Rightward lumbar [...] | + + + + + | [facility] | [address] | [place], [place] | [phone] | | [facility] | | [address] | | | - IMAGING | | | | + + + + + documented in this encounter Visit Diagnoses + + | Diagnosis | + + | S/P cervical spinal fusion - Primary Arthrodesis status | + + | S/P lumbar fusion Arthrodesis status | + + documented in this encounter
--- OUTSIDE RECORDS SUMMARY | ~2020-05-22 | XMS | Encounter Summary ---
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 [place] [address] [facility], [address] [place] [address] FAX: NEUROSURGERY SURGICAL FOLLOW-UP CHIEF COMPLAINT: Chief [...] the patient is doing fairly well. The interactive multimedia designer to recovery will take many months and [...]
--- OUTSIDE RECORDS SUMMARY | ~2020-05-22 | XMS | Encounter Summary ---
Demographics + + + | Address | [address] | | | [place] [address] | + + + | Home Phone [...] Team Providers + +------+ + | Care Apparatus Operator Name | Role | Phone | [...] [address] | [address] [place], [place] | | | | | [place], [place] | [id number] | | | | | [address] | | | | | | [phone] | | | +--------+ + + + [...]
--- OUTSIDE RECORDS SUMMARY | ~2020-05-22 | XMS | Encounter Summary ---
Demographics + + + | Address | [address] | | | [place] [address] | + + + | Home Phone [...] + + + | Author | [facility] | | | and [place] | + + + | Organization | [facility] | | | [...] Team Providers + +------+ + | Care Paralegal Instructor Name | Role | Phone | [...] + + | 10/18/ | Telephone | [facility] | Aric Wilcox | Neck Pain; | | 2017 | | NEUROSURGERY [address] | [address] | Coordination Of Care | | | | [facility] [address] | [address] [place], [place] | | | | | [place], [place] | [address] | | | | | [address] | | | | | | [phone] | | | +--------+ + + + [...] a primary care provider ( her PCP, professor of early childhood education provider or Urgent Care provider) to evaluate [...]
--- OUTSIDE RECORDS SUMMARY | ~2020-05-22 | XMS | Encounter Summary ---
Demographics + + + | Address | [address] | | | [place] [address] | + + + | Home Phone [...] Author + + + | Author | [facility] | | | and [place] | + + + | Organization | [facility] | | | [...] Team Providers + +------+ + | Care Agency Sales Director Name | Role | Phone | [...] | | [address] | [place] [address] | | | | | [place], [place] | [phone] | | | | | [address] | | | | | | [phone] | | | +--------+ + + + [...]
--- OUTSIDE RECORDS SUMMARY | ~2020-05-22 | XMS | Encounter Summary ---
Demographics + + + | Address | [address] | | | [place] [address] | + + + | Home Phone | | + + + | Preferred Language | Unknown | + + + | Marital Status | | + + + | Gnosticism Affiliation | 1028 | + + + | Race | White | + + + | Ethnic Group | Not or | + + + Author + + + | Author | [facility] | | | and [place] | + + + | Organization | [facility] | | [...] Providers + +------+ + | Care Bulk Folder Name | Role | Phone | + [...] | | [address] | [place] [address] | (Primary Dx) | | | | [place] | [phone] | | | | | [address] | | | | | | [phone] | | | +--------+ + + + [...] + | [facility] | [address] | [place] | [phone] | | [facility] | | [address] | | | - IMAGING | | | | + + + + + documented in this encounter Visit Diagnoses + + | Diagnosis | + + | Back pain, unspecified location - Primary | + + documented in this encounter"
--- OUTSIDE RECORDS SUMMARY | ~2020-05-22 | XMS | Encounter Summary ---
Demographics + + + | Address | [address] | | | [place] [address] | + + + | Home Phone | | + + + | Preferred Language | Unknown | + + + | Marital Status | | + + + | Caodaism Affiliation | 1028 | + + + [...] Team Providers + +------+ + | Care Assembler Wire Mesh Gate Name | Role | Phone | + +------+ + | Ethan Solomon MD | PCP | | + +------+ + Encounter Details +--------+ + + + + | Date | Type | Department | Care Team | Description | +--------+ + + + + | 08/15/ | Orders Only | [facility] | Sarkis Garcia DNP | | | 2017 | | VASCULAR SURGERY | [address] | | | | | ULTR[address] | [place], [place] | | | | | [address] | [address] | | | | | [place], [place] | | | | | | [address] | | | | | | [phone] | | | +--------+ + + + [...] Ruddy HERNANDEZ UPPER EXTREMITY | | ARTERIAL CHSLQWFWPI54/5/2018 3:23 PM HISTORY:83 years. Female. Left axillary [...]
--- OUTSIDE RECORDS SUMMARY | ~2020-05-22 | XMS | Encounter Summary ---
Demographics + + + | Address | [address] | | | [place] [address] | + + + | Home Phone [...] Author + + + | Author | [facility] | | | and [place] | + + + | Organization | [facility] | | | [...] Team Providers + +------+ + | Care Crayon Grader Name | Role | Phone | + [...] | | | [address] | [place] [address] | | | | | [place], [place] | [phone] | | | | | [address] | | | | | | [phone] | | | +--------+ + + + [...] created this entry | | | using TurnStar Voice Recognition software and MediaSilo | | | macros. The entry has [...] has created this entry using | | TurnStar VoiceRecognition software and MediaSilo macros. The entry has been | | [...] HENDRIX MD has created this entry using TurnStar Voice | |Recognition software and MediaSilo macros. The entry has been reviewed and | |there may still exist sound alike word errors. | | | + + documented in this encounter Visit Diagnoses Not on filedocumented in this encounter"
[~2020-05-22 14:09] MED LIST changes: +KEFLEX500 MG PO
--- OUTSIDE RECORDS SUMMARY | 2020-05-22 14:12 | XMS ---
PreManage Notification: MARY DUKE Security Liner Inserter Events No recent Security Events currently on file CRITERIA MET - [facility] - Has Care Guidelines - PDMP - [facility] - 2 Visits in 30 Days CARE PROVIDERS SIDDHARTHA LIVINGSTON Internal Medicine 05/21/2020-Current PHONE: Unknown Shruthi has no Care Guidelines for this patient. Care History Medical/Surgical 05/22/2020 [facility] Patient scheduled with Dr. Hussein, urologist, on 05/26/2020 05/21/2020 [facility] - Patient is currently established with [facility]. If patient is seen in the ED during business hours. Please contact CHWs at [facility]. Care Recommendation: If this patient has had 5 or more Emergency Department visits in the last 12 months.\T\nbsp; Patient will require education on the scope and purpose of the ED as an acute care provider not a Primary Care Provider and should not be utilized for chronic conditions.\T\nbsp; These are guidelines and the provider should exercise clinical judgment when providing care. E.D. VISIT COUNT (12 MO.) 1 [facility] 4 [facility] [place] TOTAL 5 NOTE: Visits indicate total known visits. ED/UCC VISIT TRACKING (12 MO.) 05/22/2020 14:10 [facility] [place] [place] TYPE: Emergency COMPLAINT: - CATHETER PROBLEM 05/20/2020 17:12 [facility] [place] TYPE: Emergency COMPLAINT: - VAGINAL PAIN 10/17/2019 11:13 [facility] [place] [place] TYPE: Emergency COMPLAINT: - FALL, LEFT RIB PAIN DIAGNOSES: - Allergy status to penicillin - Other retirement (current) drug therapy - Other chest pain - Allergy status to narcotic agent [facility] DIAGNOSES: - Other chronic pain - Weakness - Pain in left hip - Chest pain, unspecified - Elevated blood-pressure reading, without diagnosis of hyperte - Chest Pain 06/21/2019 12:14 [facility] [place] TYPE: Urgent Care DIAGNOSES: - History of falling - Other chest pain - Abnormal electrocardiogram [ECG] [EKG] - Follow-up 06/11/2019 12:55 [facility] TYPE: Emergency COMPLAINT: - CHEST PAIN DIAGNOSES: - Allergy status to narcotic agent status - Chest pain, unspecified - Other retirement (current) drug therapy - Chondrocostal junction syndrome [Tietze] - Allergy status to penicillin INPATIENT VISIT TRACKING (12 MO.) No inpatient visits to display in this time frame [email or web address]
== END 2020-05-22 15:10 | disposition home or self-care (01) ==
LOC: ED 14:09
DX: Z46.6 Encounter for fitting and adjustment of urinary device (principal)

== ENCOUNTER 2020-08-31 23:38 | Emergency (ER) | payer MEDICARE, OTHER ==
[~2020-08-31] VITALS: Ht 165.1 cm; Wt 71.7 kg
--- OUTSIDE RECORDS SUMMARY | 2020-08-31 23:40 | XMS ---
PreManage Notification: MARY DUKE Security Packaging Technician Events No recent Security Events currently on file CRITERIA MET - [facility] - Has Care Guidelines - PDMP CARE PROVIDERS SIDDHARTHA LIVINGSTON Internal Medicine 05/21/2020-Current PHONE: Unknown Shruthi has no Care Guidelines for this patient. Care History Medical/Surgical 05/22/2020 [facility] Patient scheduled with Dr. Hussein, urologist, on 05/26/2020 05/21/2020 [facility] - Patient is currently established with [facility]. If patient is seen in the ED during business hours. Please contact CHWs at [facility]. Care Recommendation: If this patient has [...] providing care. E.D. VISIT COUNT (12 MO.) 4 [facility] [place] TOTAL 4 NOTE: Visits indicate total known visits. ED/UCC VISIT TRACKING (12 MO.) 08/31/2020 23:39 [facility] [place] TYPE: Emergency COMPLAINT: - ABDOMINAL PAIN 05/22/2020 14:10 [facility] [place] TYPE: Emergency COMPLAINT: - CATHETER PROBLEM DIAGNOSES: - Encounter for fitting and adjustment of urinary device 05/20/2020 17:12 [facility] [place] TYPE: Emergency COMPLAINT: - VAGINAL PAIN DIAGNOSES: - Lower abdominal pain, unspecified - Retention of urine, unspecified - Allergy status to penicillin - Allergy status to narcotic agent - Other intermediate school teacher (current) drug therapy - halfway (current) use of aspirin 10/17/2019 11:13 [facility] [place] TYPE: Emergency COMPLAINT: - FALL, LEFT RIB PAIN DIAGNOSES: - Allergy status to penicillin - Other intermediate school teacher (current) drug therapy - Other chest pain - Allergy status to narcotic agent INPATIENT VISIT TRACKING (12 MO.) No inpatient visits to display in this time frame [id number]
[2020-09-01] MEDS ORDERED: OXYBUTYNIN CHLO15 MG PO (00:12)
[2020-09-01] MEDS ORDERED: MACROBID 100 M100 MG PO (00:13)
== END 2020-09-01 01:31 | disposition home or self-care (01) ==
LOC: ED 23:38
DX: R33.9 Retention of urine, unspecified (principal); Z88.0 Allergy status to penicillin; Z88.5 Allergy status to narcotic agent; Z79.899 Other long term (current) drug therapy; Z79.82 Long term (current) use of aspirin
CPT/HCPCS: 51702; 81001; 99283-25

== ENCOUNTER 2020-12-16 15:52 | Emergency (ER) | payer MEDICARE, OTHER ==
[~2020-12-16] VITALS: Ht 162.6 cm; Wt 67.6 kg
[~2020-12-16 15:52] MED LIST changes: +MACROBID 100 M100 MG PO; +OXYBUTYNIN CHLO15 MG PO
--- OUTSIDE RECORDS SUMMARY | 2020-12-16 15:54 | XMS ---
PreManage Notification: MARY DUKE Security Metalworking Instructor Events No recent Security Events currently on file CRITERIA MET - [facility] - Has Care Guidelines CARE PROVIDERS SIDDHARTHA LIVINGSTON Internal Medicine 05/21/2020-Current PHONE: Unknown Shruthi has no Care Guidelines for this patient. Care History Medical/Surgical 09/07/2020 [facility] - PATIENT RESCHEDULED APT WITH DR GOMEZ ON 09/01/2020. NEXT APT WITH DR GOMEZ-UROLOGIST - 09/09/2020- VOIDING TRIAL APT. - PATIENT HAS AN APT WITH DR LIVINGSTON ON 10/02/2019 FOR A FOLLOW UP APT. 05/22/2020 [facility] Patient scheduled with Dr. Gomez, urologist, on 05/26/2020 05/21/2020 [facility] - Patient is currently established with [facility]. If patient is seen in the ED during business hours. Please contact CHWs at [facility]. Care Recommendation: If this patient has [...] providing care. E.D. VISIT COUNT (12 MO.) 5 NANCY [place] TOTAL 5 NOTE: Visits indicate total known visits. ED/UCC VISIT TRACKING (12 MO.) 12/16/2020 15:53 [facility] [place] TYPE: Emergency COMPLAINT: - ABDOMINAL PAIN, DIARRHEA 09/04/2020 20:04 [facility] [place] [place] TYPE: Emergency COMPLAINT: - CATHETER PROBLEM DIAGNOSES: - Urinary tract infection, site not specified - Allergy status to narcotic agent - Encounter for fitting and adjustment of urinary device - Other senior care (current) drug therapy - Allergy status to penicillin - Allergy status to narcotic agent 08/31/2020 23:39 [facility] [place] TYPE: Emergency COMPLAINT: - ABDOMINAL PAIN DIAGNOSES: - detention (current) use of aspirin - Allergy status to narcotic agent - Allergy status to penicillin - Other crusher loader operator (current) drug therapy - Retention of urine, unspecified - Allergy status to narcotic agent 05/22/2020 14:10 [facility] [place] [place] TYPE: Emergency COMPLAINT: - CATHETER PROBLEM DIAGNOSES: - Encounter for fitting and adjustment of urinary device 05/20/2020 17:12 [facility] [place] [place] TYPE: Emergency COMPLAINT: - VAGINAL PAIN DIAGNOSES: - Lower abdominal pain, unspecified - Retention of urine, unspecified - Allergy status to penicillin - Allergy status to narcotic agent - Other crusher loader operator (current) drug therapy - mortar maker (current) use of aspirin INPATIENT VISIT TRACKING (12 MO.) No inpatient visits to display in this time frame [id number]
[2020-12-16] MEDS ORDERED: LOSARTAN POTASS50 MG PO (16:10)
[2020-12-16] MEDS ORDERED: BACTRIM 400-801 EACH PO (19:40)
== END 2020-12-16 21:24 | disposition home or self-care (01) ==
LOC: ED 15:52
PROC: 4A0D7LZ Measurement of Urinary Volume, Via Natural or Artificial Opening (ICD-10-PCS; principal; 2020-12-16)
DX: N39.0 Urinary tract infection, site not specified (principal); R19.7 Diarrhea, unspecified; E83.42 Hypomagnesemia; Z88.0 Allergy status to penicillin; Z88.5 Allergy status to narcotic agent; Z79.899 Other long term (current) drug therapy
CPT/HCPCS: 51798; 80053; 81001; 83690; 83735; 85025; 96365; 96367; 99284-25; J0696; J3475; J7030

== ENCOUNTER 2022-12-13 10:28 | Emergency (ER) | payer MEDICARE, OTHER ==
[~2022-12-13] VITALS: Ht 162.6 cm; Wt 73.0 kg
[~2022-12-13 10:28] MED LIST changes: +BACTRIM 400-801 EACH PO; +HYDROCODON-ACE1 EA10 PO; +LOSARTAN POTASS50 MG PO; +NORVASC10 MG PO; +PAXIL40 MG PO; +VITAMIN C500 M4 PO
--- OUTSIDE RECORDS SUMMARY | 2022-12-13 10:33 | XMS ---
PreManage Notification: MARY DUKE Security Z Os Mainframe Systems Programmer Events No recent Security Events currently on file CRITERIA MET - [facility] - [facility] - 2 Visits in 30 Days CARE PROVIDERS SIDDHARTHA LIVINGSTON Internal Medicine 05/21/2020-Current PHONE: Unknown Shruthi has no Care Guidelines for this patient. Care History Medical/Surgical 09/07/2020 [facility] - PATIENT RESCHEDULED APT WITH DR GOMEZ ON 09/01/2020. NEXT APT WITH DR GOMEZ-UROLOGIST - 09/09/2020- VOIDING TRIAL APT. - PATIENT HAS AN APT WITH DR LIVINGSTON ON 10/02/2019 FOR A FOLLOW UP APT. 05/22/2020 [facility] Patient scheduled with Dr. Gomez, urologist, on 05/26/2020 05/21/2020 [facility] - Patient is currently established with [facility]. If patient is seen in the ED during business hours. Please contact CHWs at [facility]. Care Recommendation: If this patient has [...] providing care. E.D. VISIT COUNT (12 MO.) 3 NANCY [place] TOTAL 3 NOTE: Visits indicate total known visits. ED/UCC VISIT TRACKING (12 MO.) 12/13/2022 10:28 [facility] [place] [place] TYPE: Emergency COMPLAINT: - POSS UTI, COLD SYMPTOMS 11/22/2022 11:38 [facility] [place] [place] TYPE: Emergency COMPLAINT: - BACK PAIN, BODY PAIN DIAGNOSES: - Allergy status to penicillin - Allergy status to narcotic agent - Urinary tract infection, site not specified - Dehydration - Contact with and (suspected) exposure to COVID-19 - Nausea with vomiting, unspecified - Unspecified osteoarthritis, unspecified site - Other fdc (current) drug therapy 11/21/2022 17:47 [facility] [place] [place] TYPE: Emergency COMPLAINT: - VOMITING INPATIENT VISIT TRACKING (12 MO.) No inpatient visits to display in this time frame [id number]
[2022-12-13] MEDS ORDERED: LOSARTAN POTAS100 MG PO (10:46)
[2022-12-13] MEDS ORDERED: PYRIDIUM200 MG PO (11:36)
[2022-12-13] MEDS ORDERED: CEFDINIR300 MG PO (11:36)
== END 2022-12-13 11:54 | disposition home or self-care (01) ==
LOC: ED 10:28
DX: N39.0 Urinary tract infection, site not specified (principal); M19.90 Unspecified osteoarthritis, unspecified site; Z88.0 Allergy status to penicillin; Z88.5 Allergy status to narcotic agent; Z79.899 Other long term (current) drug therapy
CPT/HCPCS: 81001; 99283; A9270

== ENCOUNTER 2023-01-31 23:00 | Emergency (ER) | payer OTHER, MEDICARE ==
[~2023-01-31] VITALS: Ht 162.6 cm; Wt 72.6 kg
[~2023-01-31 23:00] MED LIST changes: +CEFDINIR300 MG PO; +LOSARTAN POTAS100 MG PO; +PYRIDIUM200 MG PO
--- OUTSIDE RECORDS SUMMARY | 2023-01-31 23:03 | XMS ---
PreManage Notification: MARY DUKE Security Etcher Photoengraving Events 1 event(s) in the past 18 months Most recent security events: Elopement at [facility] 11/21/2022 17:47 - Patient eloped before treatment completed. - Patient with suicidal and/or homicidal ideations eloped. - Patient eloped with IV in place. Details: Patient LWBS CRITERIA MET - PDMP CARE PROVIDERS SIDDHARTHA LIVINGSTON Internal Medicine 05/21/2020-Current PHONE: Unknown Shruthi has no Care Guidelines for this patient. Care History Medical/Surgical 09/07/2020 [facility] - PATIENT RESCHEDULED APT WITH DR GOMEZ ON 09/01/2020. NEXT APT WITH DR GOMEZ-UROLOGIST - 09/09/2020- VOIDING TRIAL APT. - PATIENT HAS AN APT WITH DR LIVINGSTON ON 10/02/2019 FOR A FOLLOW UP APT. 05/22/2020 [facility] Patient scheduled with Dr. Gomez, urologist, on 05/26/2020 05/21/2020 [facility] - Patient is currently established with [facility]. If patient is seen in the ED during business hours. Please contact CHWs at [facility]. Care Recommendation: If this patient has had 5 or more Emergency Department visits in the last 12 months.\T\nbsp; Patient will require education on the scope and purpose of the ED as an acute care provider not a Primary Care Provider and should not be utilized for chronic conditions.\T\nbsp; These are guidelines and the provider should exercise clinical judgment when providing care. EDesire VISIT COUNT (12 MO.) 4 NANCY [place] TOTAL 4 NOTE: Visits indicate total known visits. ED/UCC VISIT TRACKING (12 MO.) 01/31/2023 23:00 [facility] [place] TYPE: Emergency COMPLAINT: - HEAD INJURY 12/13/2022 10:28 [facility] [place] TYPE: Emergency COMPLAINT: - POSS UTI, COLD SYMPTOMS DIAGNOSES: - Allergy status to narcotic agent - Allergy status to penicillin - Dysuria - Other prison (current) drug therapy - Unspecified osteoarthritis, unspecified site - Urinary tract infection, site not specified 11/22/2022 11:38 [facility] [place] TYPE: Emergency COMPLAINT: - BACK PAIN, BODY PAIN DIAGNOSES: - Allergy status to narcotic agent - Allergy status to penicillin - Contact with and (suspected) exposure to COVID-19 - Dehydration - Nausea with vomiting, unspecified - Other terminal carman (current) drug therapy - Unspecified osteoarthritis, unspecified site - Urinary tract infection, site not specified 11/21/2022 17:47 [facility] [place] TYPE: Emergency COMPLAINT: - VOMITING INPATIENT VISIT TRACKING (12 MO.) No inpatient visits to display in this time frame [id number]
[2023-02-01 01:29] VITALS: BP 167/89
== END 2023-02-01 01:30 | disposition home or self-care (01) ==
LOC: ED 23:00
DX: S01.01XA Laceration without foreign body of scalp, initial encounter (principal); W01.190A Fall on same level from slipping, tripping and stumbling with subsequent striking against furniture, initial encounter; Z23 Encounter for immunization; Z88.0 Allergy status to penicillin; Z88.5 Allergy status to narcotic agent; Z79.899 Other long term (current) drug therapy
CPT/HCPCS: 70450; 90471; 90714; 99283-25

== ENCOUNTER 2024-04-02 18:23 | Emergency (ER) | payer MEDICARE, OTHER ==
[~2024-04-02] VITALS: Ht 162.6 cm; Wt 73.8 kg
[~2024-04-02 18:23] MED LIST changes: +AMLODIPINE BESY10 MG PO; +CEPHALEXIN500 M1 PO; +CIPRO500 MG PO; +CIPROFLOXACIN500 MG PO; +LIPITOR40 MG PO; +METOCLOPRAMIDE10 MG PO; +ONDANSETRON ODT4 MG PO; +ONDANSETRON ODT8 MG PO; +REGLAN10 MG PO; +ZINC50 MG PO
[2024-04-02] MEDS ORDERED: IBLOOD GLUCOSE TEST STRIP 1 EA TEST XX ONE (18:30)
[2024-04-02 18:53] LABS: BASOPHILS 0.5 % (0-2); EOSINOPHILS 1.6 % (0-6); HEMATOCRIT 38.6 % (35.0-50.0); LYMPHOCYTES 27.6 % (24-44); MCH 32.6 (27-36); MCHC 33.7 g/dl (30-36); MCV 96.6 fl (81-99); MONOCYTES 15.2 % (0-12); NEUTROPHILS 55.1 % (39-80); PLATELET COUNT 140 K/uL (140-440); RDW 13.7 (10.5-15.0)
[2024-04-02 19:01] LABS: INR 1.06 (0.80-1.30); PROTIME 13.5 Sec (11.2-14.2)
[2024-04-02 19:03] LABS: PARTIAL THROMBOPLASTIN TIME 25.2 Sec (22.9-41.3)
[2024-04-02 19:09] LABS: ALBUMIN 3.2 g/dL (3.4-5.0); ALBUMIN/GLOBULIN RATIO 1.07 (1.1-2.4); ANION GAP 15.2 (7-21); BILIRUBIN, TOTAL 0.3 ng/dL (0.2-1.0); BUN/CREATININE RATIO 26.98 (6.0-28.6); CALCIUM 8.9 mg/dL (8.5-10.1); CREATININE, SERUM 0.63 mg/dL (0.55-1.02); POTASSIUM 3.2 mmol/L (3.5-5.1); PROTEIN, TOTAL 6.2 g/dL (6.4-8.2)
[2024-04-02 20:17] LABS: AMPHETAMINES, URINE NEGATIVE (NEGATIVE); BARBITURATES, URINE NEGATIVE (NEGATIVE); BENZODIAZEPINE, URINE NEGATIVE (NEGATIVE); BUPRENORPHINE, URINE NEGATIVE (NEGATIVE); CANNABINOID, URINE NEGATIVE (NEGATIVE); COCAINE, URINE NEGATIVE (NEGATIVE); ECSTASY, URINE NEGATIVE (NEGATIVE); FENTANYL, URINE NEGATIVE (NEGATIVE); METHADONE, URINE NEGATIVE (NEGATIVE); OPIATES, URINE NEGATIVE (NEGATIVE); OXYCODONE, URINE NEGATIVE (NEGATIVE); PHENCYCLIDINE, URINE NEGATIVE (NEGATIVE)
[2024-04-02 20:54] VITALS: BP 160/85
--- NOTE | 2024-04-02 21:58 | EKG ---
[facility] [address] [facility] [address] [place], [place] [address] Signed Sinus rhythm with 1st degree AV block with premature atrial complexes Left axis deviation Incomplete left bundle branch block Minimal voltage criteria for LVH, may be normal variant ( R in aVL ) Abnormal ECG No previous ECGs available Confirmed by ESA ALAN MD ([id number]) on 04/02/2024 9:57:53 PM Electronically Signed By: ESA ALAN 04/02/24 2158 PATIENT NAME: MARY DUKE ANA LILIA Electrocardiogram DATE OF : 39 PHYSICIAN: ESA ALAN REPORT #: [id number] REPORT IS CONFIDENTIAL AND NOT TO BE RELEASED WITHOUT AUTHORIZATION
== END 2024-04-02 20:54 | disposition home or self-care (01) ==
LOC: ED 18:23
PROVIDERS: Emergency Medicine
DX: I63.9 Cerebral infarction, unspecified (principal); Z88.5 Allergy status to narcotic agent; Z88.0 Allergy status to penicillin; Z79.899 Other long term (current) drug therapy
CPT/HCPCS: 36415; 70450; 70496; 70498; 71045; 80053; 80307; 84484; 85025; 85610; 85730; 93005; 93010; 99285-25; G0480

== ENCOUNTER 2024-04-26 19:06 | Inpatient (IN) | payer MEDICARE, OTHER ==
[~2024-04-26] VITALS: Ht 165.1 cm; Wt 69.3 kg
[2024-04-26 19:15] LABS: BASOPHILS 0.3 % (0-2); EOSINOPHILS 1.2 % (0-6); HEMATOCRIT 41.9 % (35.0-50.0); HEMOGLOBIN 14.2 g/dL (12.0-18.0); LYMPHOCYTES 25.9 % (24-44); MCH 32.2 (27-36); MCV 94.9 fl (81-99); MONOCYTES 14.4 % (0-12); NEUTROPHILS 58.2 % (39-80); PLATELET COUNT 156 K/uL (140-440); RBC 4.42 M/ul (4.3-5.7); RDW 13.5 (10.5-15.0)
[2024-04-26] MEDS ORDERED: IBLOOD GLUCOSE TEST STRIP 1 EA TEST XX ONE (19:15)
[2024-04-26 19:26] LABS: PARTIAL THROMBOPLASTIN TIME 24.6 Sec (22.9-41.3)
[2024-04-26 19:27] LABS: INR 1.01 (0.80-1.30); PROTIME 12.6 Sec (11.2-14.2)
[2024-04-26 19:33] LABS: ALBUMIN 3.9 g/dL (3.4-5.0); ALBUMIN/GLOBULIN RATIO 1.15 (1.1-2.4); ANION GAP 17.8 (7-21); BILIRUBIN, TOTAL 0.4 ng/dL (0.2-1.0); BUN/CREATININE RATIO 21.73 (6.0-28.6); CREATININE, SERUM 0.69 mg/dL (0.55-1.02); POTASSIUM 3.8 mmol/L (3.5-5.1); PROTEIN, TOTAL 7.3 g/dL (6.4-8.2)
[2024-04-26] MEDS ORDERED: MULTIVITAMINS 10 ML,FOLIC ACID 1 MG,THIAMINE HCL 100 MG in SODIUM CHLORIDE 0.9% 1,000 ML IV ONE (19:45)
[2024-04-26] MEDS ORDERED: FOLIC ACID 1 MG/0.2 ML ML ONE (20:05)
[2024-04-26] MEDS ORDERED: LORazepam 1 MG TAB PO PRN (20:15)
[2024-04-26] MEDS ORDERED: TUBERCULIN PPD 5 UNITS/0.1 ML VIAL SUB-Q SCH (20:15)
[2024-04-26] MEDS ORDERED: ondansetron HCL 4 MG/2 ML VIAL IV PRN (20:15)
[2024-04-26] MEDS ORDERED: ACETAMINOPHEN 325 MG TAB PO PRN (20:15)
[2024-04-26 20:46] LABS: AMPHETAMINES, URINE NEGATIVE (NEGATIVE); BENZODIAZEPINE, URINE NEGATIVE (NEGATIVE); BUPRENORPHINE, URINE NEGATIVE (NEGATIVE); CANNABINOID, URINE NEGATIVE (NEGATIVE); COCAINE, URINE NEGATIVE (NEGATIVE); ECSTASY, URINE NEGATIVE (NEGATIVE); FENTANYL, URINE NEGATIVE (NEGATIVE); METHADONE, URINE NEGATIVE (NEGATIVE); OPIATES, URINE NEGATIVE (NEGATIVE); OXYCODONE, URINE NEGATIVE (NEGATIVE); PHENCYCLIDINE, URINE NEGATIVE (NEGATIVE)
[2024-04-26 21:07] LABS: BARBITURATES, URINE NEGATIVE (NEGATIVE)
--- NOTE | 2024-04-26 21:15 | NUR ---
pt BROUGHT TO MS ROOM 110 FROM THE ED WITH TELEMARKETING FUNDRAISER DEAN AT THIS TIME. pt STOOD PIVOT FROM ED STRETCHER TO MS BED, BED ALARM ON FOR SAFETY. PUREWICK IN PLACE ALONG WITH TELE BY ED RN. VS COLLECTED AND CHARTED, pt ON RA. NO DISTRESS NOTED. BANANA BAG INFUSING WNL. CPOX IN PLACE, HR 70'S AND SPO2 UPPER 90'S ON RA. pt HAS UPPER DENTURES IN PLACE, REPORTS SHE HAS LOWER DENTURES AT HOME, BUT STATES, "WHEN I FIRST GOT THEM SOON I PUT THEM IN THEY DIDN'T FIT AND I TOOK THEM OUT BEFORE I EVEN GOT HOME". PER REPORT, pt USES A WALKER AT HOME-NOT PRESENT ON ARRIVAL TO MS FLOOR. pt ORIENTED TO ROOM AND CALL LIGHT IN REACH. NO FURTHER NEEDS OR CONCERNS VERBALIZED AT THIS TIME.
[2024-04-26 21:27] VITALS: BP 170/85
[2024-04-26 22:33] LABS: BILIRUBIN, URINE NEGATIVE (negative); BLOOD/HGB, URINE NEGATIVE (Negative); KETONE, URINE NEGATIVE (Negative); LEUK ESTERASE, URINE MODERATE (negative); NITRITE, URINE NEGATIVE (negative)
[2024-04-26 22:42] LABS: RED BLOOD CELLS, URINE 0-1 /hpf (0-5)
[2024-04-26 22:43] LABS: BACTERIA, URINE 1+ /hpf (negative); CASTS, URINE NONE SEEN \\lpf; COLLECTION TYPE, URINE CLEAN CATCH; CRYSTALS, URINE NONE SEEN (0-1+); EPITHELIAL CELLS, URINE SQUAMOUS 1+ /lpf (0-1+); REFLEX CULTURE, URINE Yes (No)
--- NOTE | 2024-04-26 22:56 | NUR ---
IV PUMP ALARMING, DISTAL OCCLUSION NOTED. BANANA BAG RESUMED AND INFUSING WNL. IV SITE WNL. BED ALARM ON AND CALL LIGHT IN REACH.
[2024-04-26] MEDS ORDERED: CEFTRIAXONE/SODIUM CHLORIDE 2 GM/100 ML PIGGYBACK IV ONE (23:15)
--- NOTE | 2024-04-26 23:15 | NUR ---
BEDSIDE REPORT GIVEN TO PRIMARY RN TYLER AT THIS TIME. QUESTIONS ANSWERED. TWO RN SKIN ASSESSMENT ALSO COMPLETED, SCRAPES NOTED TO LEFT ELBOW, SMALL ABRASION NOTED TO LEFT KNEE, SCAR NOTED TO ABD-OLD IN NATURE. SMALL SKIN TEAR/ABRASION NOTED TO BOTTOM OF LEFT FOOT. REDDNESS NOTED TO BUTTOCKS, BLANCHABLE. pt ABLE TO TURN SELF IN BED. PRIMARY RN TYLER IN ROOM OBTAINING PHOTOS.
--- NOTE | 2024-04-26 23:20 | NUR ---
REPORT RECEIVED FROM UMESH ARENAS. SECOND RN SKIN CHECK COMPLETED. PHOTO TAKEN OF ABRASIONS TO LEFT ELBOW, LEFT KNEE, BLISTER TO LEFT PLANTAR ABD CRACKED HEEL TO LEFT FOOT. LUNGS CTA, PUPILS NOT EQUAL, RIGHT PUPIL SMALLER THAN LEFT. BOTH ARE REACTIVE TO LIGHT. MEDICAL EDUCATION MANAGER NOT EQUAL. PATIENT REPORTS BURNING ON URINATION, NOTED FREQUENCY AT THIS TIME WELL. BOWEL TONES ACTIVE X 4, LUNGS CTA. NOTED TREMMOR LIKE MOVEMENT IN RIGHT ARM. CMS INTACT. CONSENT OBTAINED FOR PHOTOS. CALL LIGHT WITHIN REACH. BED ALARM ON.
[2024-04-27] VITALS (14 sets, daily range): BP systolic 133–209; BP diastolic 56–99
--- NOTE | 2024-04-27 01:25 | NUR ---
MACHINE MADE SHOE UNIT WORKER OBTAINED VITALS AND I&O. PT B/P IS /. RN NOTIFED. PT STATES NO FURTHER NEEDS AT THIS TIME. CALL LIGHT WITHIN REACH.
--- NOTE | 2024-04-27 01:43 | NUR ---
PATIENT WITH ELEVATED BP AND C/O HEADACHE AND "NOT FEELING GOOD". RN CONTACTED MD SWANSON. NEW ORDERS RECIEVED VIA TELEPHONE AND VERIFIED VIA VERBAL READ BACK.
[2024-04-27] MEDS ORDERED: AMLODIPINE BESYLATE 10 MG TAB PO SCH (02:00)
[2024-04-27] MEDS ORDERED: hydrALAZINE HCL 20 MG/ML VIAL IV PRN (02:00)
--- NOTE | 2024-04-27 02:04 | NUR ---
MEDICATIONS GIVEN FOR INCREASED BP PER ORDERS.
[2024-04-27] MEDS ORDERED: ASPIRIN 81 MG CHEW PO ONE (02:15)
--- NOTE | 2024-04-27 02:23 | NUR ---
PT MEDICATED WITH TYLENOL 650MG PO FOR EARILIER C/O HEADACHE, PT ALERT, WATCHING TV AT THIS TIME.
--- NOTE | 2024-04-27 02:30 | NUR ---
PATIENT ESCORTED TO CT VIA STRETCHER.
--- NOTE | 2024-04-27 02:52 | NUR ---
PATIENT BP CONTINUES TO BE ELEVATED. PRN GIVEN SEE MAR. PTIENT REPORTS HEAD IS "FEELING BETTER." NO NOTED CHANGES TO NEURO ASSESSMENT.
--- NOTE | 2024-04-27 02:54 | NUR ---
in room, pump alarming. iv abx complete. pump cleared and pt saline locked. no further needs, call light in reach.
--- NOTE | 2024-04-27 03:22 | NUR ---
BP IMPROVING. WHEN ASKED PATIENT DENIES HEADACHE OR DIZZINESS. CALL LIGHT WITHIN REACH.
--- NOTE | 2024-04-27 03:56 | NUR ---
call made to darren carroll per pt request as pt has called and asked yarn polishing machine operator to call her son because "he goes to work and i want him to come take me home". pt educated that the doctor has yet to see her on the ms floor and she will be on the floor around 0800 to start her rounding. primary rn jose armando aware. darren carroll did not answer, pt updated. will transfer phone to pt room if son calls back.
--- NOTE | 2024-04-27 04:21 | NUR ---
CALL LIGHT ANSWERED. PATIENT REQUESTING TO LEAVE THE HOSPITAL. PATIENT ASKING EVENT SET UP SPECIALIST TO NOTIFY SON AND DAUGHTER THAT SHE WOULD LIKE TO GO HOME. SAP ARCHITECT NOTIFIED SON AND LEFT A MESSAGE. THIS RN CALLED PATIENT'S DAUGHTER WITH NO ANSWER. THIS RN EDUCATED PATIENT ON IMPORTANCE OF STAYING AT THE HOSPITAL TO CONTINUE TREATMENT FOR UTI, PATIENT STATED, " I HAVE MEDICATIONS AT HOME FOR THAT." THIS RN EDUCATED PATIENT ON IMPORTANCE OF MONITORING CONDITION DUE TO RECENT WEAKNESS AND ELEVATED BP JUST HOURS AGO. PATIENT STATED," MY BP IS ONLY HIGH BECUASE I AM SO FRUSTRATED." PATIENT WILLING TO STAY AT HOSPITAL UNTIL CONTACT IS MADE WITH HER SON OR DAUGHTER. NO FURTHER NEEDS AT THIS TIME. CALL LIGHT WITHIN REACH.
--- NOTE | 2024-04-27 04:50 | NUR ---
PATIENT SON CALLED BACK. RN SPOKE WITH SON AND INFORMED HIM OF POC AND UPDATED ON CURRENT CONDITION. PATIENT SON TRANSFERED TO PATIENT ROOM. PATIENT TALKING WITH HER SON ON THE PHONE.
[2024-04-27 05:33] LABS: BASOPHILS 0.2 % (0-2); EOSINOPHILS 0.5 % (0-6); HEMATOCRIT 44.8 % (35.0-50.0); HEMOGLOBIN 15.3 g/dL (12.0-18.0); LYMPHOCYTES 10.6 % (24-44); MCH 32.3 (27-36); MCHC 34.1 g/dl (30-36); MCV 94.7 fl (81-99); MONOCYTES 12.3 % (0-12); NEUTROPHILS 76.4 % (39-80); PLATELET COUNT 143 K/uL (140-440); RBC 4.73 M/ul (4.3-5.7); RDW 13.3 (10.5-15.0)
[2024-04-27 05:47] LABS: ALBUMIN 4.1 g/dL (3.4-5.0); ALBUMIN/GLOBULIN RATIO 1.21 (1.1-2.4); BILIRUBIN, TOTAL 0.5 ng/dL (0.2-1.0); BUN/CREATININE RATIO 18.64 (6.0-28.6); CALCIUM 9.6 mg/dL (8.5-10.1); CREATININE, SERUM 0.59 mg/dL (0.55-1.02); PROTEIN, TOTAL 7.5 g/dL (6.4-8.2)
[2024-04-27 06:01] LABS: CHOLESTEROL/HDL RATIO 2.7; MAGNESIUM 1.6 mg/dL (1.8-2.4); TSH, 3RD GENERATION 3.864 uIU/mL (0.358-3.740)
--- NOTE | 2024-04-27 06:05 | NUR ---
PATIENT RESTING IN BED WITH EYES CLOSED. RESPIRATIONS EVEN AND UNLABORED. VSS BP NOTED TO BE TRENDING DOWN AT THIS TIME. CALL LIGTHT WITHIN REACH. BED ALARM ON.
--- NOTE | 2024-04-27 06:23 | NUR ---
MD SWANSON UPDATED WITH NEWEST CT RESULTS. NEW ORDERS RECEIVED FOR MRI. ORDERS VERIFIED VIA VERBAL READ BACK.
--- NOTE | 2024-04-27 06:50 | NUR ---
warehouse analyst brayan made aware of new mri order. per brayan, she will notify dayshift rn cheli and have her ask if someone can come in today (monday) and complete order. primary rn jose armando updated and made aware.
--- NOTE | 2024-04-27 07:05 | NUR ---
REPORT RECEIVED FROM TYLER RN, ALL QUESTIONS ANSWERED. PT AWAKE IN BED, SON AT BEDSIDE. CALL LIGHT IN REACH AND BED ALARM ON.
--- NOTE | 2024-04-27 07:33 | NUR ---
DR SWANSON AT RN STATION, VERBAL ORDER READ BACK TO DC TUBERSOL TEST-NO NEED TO COMPLETE.
--- NOTE | 2024-04-27 07:45 | NUR ---
Board has been updated and call light has been placed within reach.
[2024-04-27] MEDS ORDERED: THIAMINE HCL 100 MG TAB PO SCH (08:00)
[2024-04-27] MEDS ORDERED: MAGNESIUM HYDROXIDE 30 ML UDC PO PRN (09:00)
[2024-04-27] MEDS ORDERED: PROCHLORPERAZINE EDISYLATE 10 MG/2 ML VIAL IV PRN (09:00)
[2024-04-27] MEDS ORDERED: POTASSIUM REPLACEMENT PROTOCOL ORAL/IV PO SCH (09:00)
[2024-04-27] MEDS ORDERED: ondansetron HCL 4 MG/2 ML VIAL IV PRN (09:00)
[2024-04-27] MEDS ORDERED: ACETAMINOPHEN 500 MG TAB PO PRN (09:00)
[2024-04-27] MEDS ORDERED: POTASSIUM CHLORIDE 40 MEQ IV ONE (09:00)
[2024-04-27] MEDS ORDERED: DEXTROSE 5% IV ONE (09:00)
[2024-04-27] MEDS ORDERED: LIDOCAINE HCL IV ONE (09:00)
[2024-04-27] MEDS ORDERED: MAGNESIUM REPLACEMENT PROTOCOL ORAL/IV IV SCH (09:00)
[2024-04-27] MEDS ORDERED: bisacodyL 10 MG SUPP PR PRN (09:00)
[2024-04-27] MEDS ORDERED: MAGNESIUM SULFATE 2 GM/50 ML BAG IV ONE (09:00)
--- NOTE | 2024-04-27 09:14 | NUR ---
THIS RN RECIEVED CALL FROM IMAGING REGARDING ECHO ORDER FOR PT. PT HAS HAD AN ECHO DONE IN SEPTEMBER OF THIS YEAR. IMAGING ASKING IF MD WOULD LIKE NEW ECHO OR THE REPORT FROM SEPTEMBER ECHO. THIS RN CALLED DR. SWANSON TO ASK IF SEPTEMBER ECHO WOULD BE ALRIGHT OR IF DR. SWANSON WOULD LIKE A NEW ECHO. PER DR. SWANSON "THE SEPTEMBER ECHO REPORT IS OKAY. OKAY TO DC ECHO ORDER." VERIFIED WITH READBACK.
--- NOTE | 2024-04-27 09:15 | NUR ---
THIS RN RECIEVED PHONE CALL FROM [facility], MARKETING AND OUTREACH COORDINATOR REGARDING THERE IS NO ONE THAT CAN COME IN OVER THE WEEKEND TO PERFORM AN MRI AND TO LET MD KNOW. [phone] SWANSON TO INFORM THAT THERE IS NO MRI OVER THE WEEKENDS. DR. SWANSON OKAY WITH THIS. NO NEW ORDERS.
[2024-04-27] MEDS ORDERED: PARoxetine HCL 20 MG TAB PO SCH (09:40)
--- NOTE | 2024-04-27 09:40 | NUR ---
IN IV PUMP ALARMING, IV ABX COMPLETE. PT SL AT THIS TIME. PT RESTING IN BED WITH EYES CLOSED RR EVEN AND UNLABORED. SNORING NOTED. NO OTHER NEEDS IDENTIFIED AT THIS TIME. CALL LIGHT IN REACH. BED ALARM ON.
[2024-04-27] MEDS ORDERED: GABAPENTIN 600 MG TAB PO SCH (09:53)
--- NOTE | 2024-04-27 10:04 | NUR ---
MORNING ASSESSMENT COMPLETE. PT AWAKE IN BED, ALERT, DISORIENTED TO TIME AND SITUATION. PT REORIENTED TO SITUATION AND DATE. CIWA SCORE 1 RELATED TO DISORIENTED OF DATE AND SITUATION. L PUPIL 1MM, SLUGGISH, R PUPIL 2MM, SLUGGISH. NO FACIAL DROOP, ARM OR LEG DRIFT NOTED. CMS INTACT. PT COMPLAINS OF BILAT HEEL PAIN, DRY CRACKED HEELS NOTED, NO REDNESS AND BLANCHABLE. PT DENIES FURTHER NEEDS AT THIS TIME. DISCUSSED SAFETY AND REORIENTED PT TO CALL LIGHT. CALL LIGHT IN REACH AND BED ALARM ON.
--- NOTE | 2024-04-27 10:20 | NUR ---
PHYSICAL THERAPY IN WORKING WITH PT
--- NOTE | 2024-04-27 10:56 | NUR ---
LUH PLACED 04/27 AT 1050
--- NOTE | 2024-04-27 10:58 | NUR ---
New purewick has been placed as of 10:50 am
--- NOTE | 2024-04-27 11:42 | EKG ---
[facility] [address] [facility] [place] [address] Signed Sinus rhythm with sinus arrhythmia with 1st degree AV block Left anterior fascicular block Minimal voltage criteria for LVH, may be normal variant ( Cecilio product ) Abnormal ECG When compared with ECG of 02-APR-2024 19:09, premature atrial complexes are no longer present Confirmed by Mike Kincaid ([id number]) on 04/27/2024 11:41:47 AM Electronically Signed By: MIKE KINCAID MD 04/27/24 1142 PATIENT NAME: MARY DUKE Electrocardiogram DATE OF : 39 PHYSICIAN: MIKE KINCAID MD REPORT #: [id number] REPORT IS CONFIDENTIAL AND NOT TO BE RELEASED WITHOUT AUTHORIZATION
[2024-04-27] MEDS ORDERED: PHARMACY RENAL DOSE ADJUSTMENT 1 DOSE MISC PO SCH (12:00)
--- NOTE | 2024-04-27 15:25 | NUR ---
PT INCONTINENT OF BOWEL, COMPLETE LINEN AND GOWN CHANGE, PERICARE PROVIDED. PT DENIES FURTHER NEEDS AT THIS TIME. CALL LIGHT IN REACH AND BED ALARM ON.
--- NOTE | 2024-04-27 16:51 | NUR ---
PT RESTING IN BED WITH EYES CLSOED, RESPIRATIONS EVEN AND UNLABROED. O2 SAT 95% ON RA. CALL LIGHT IN REACH AND BED ALARM ON.
--- NOTE | 2024-04-27 18:05 | NUR ---
DR SWANSON IN ROOM DISCUSSING PLAN OF CARE AND CODE STATUS WITH PATIENT AND DAUGHTER.
--- NOTE | 2024-04-27 19:30 | NUR ---
Pt resting, eyes closed, no s/sx distress or withdrawals, pure wick in place. alarsm on per nursing judgement.
--- NOTE | 2024-04-27 19:37 | NUR ---
Patient's TELE battery was dying and then replaced. No other cares were wanted.
[2024-04-27] MEDS ORDERED: ATORVASTATIN 40 MG TAB PO SCH ×2 (21:00)
[2024-04-27] MEDS ORDERED: MELATONIN 3 MG TAB PO PRN (21:00)
--- NOTE | 2024-04-27 21:45 | NUR ---
resting, eyes closed, room air, no s/sx distress, resp even unlabored
[2024-04-27] MEDS ORDERED: CEFTRIAXONE/SODIUM CHLORIDE 1 GM/100 ML PIGGYBACK IV SCH (23:00)
--- NOTE | 2024-04-27 23:15 | NUR ---
Pt awake, alert and oriented to all, pleasnat, cooperative and talkative. Cooperative with assessments, on room air, lungs clear bilat. abd soft, osman, smear of bm noted when wiped. red periarea noted, lynne care done and barrier cream applied. pure wick changed. cares explained cooperative. attends in place. scds in place, SL LAC 18G, abx infusing, no c/o adverse reaction. took meds with sips of eater w/o problems, helped with repositioning. CIWA-0, Neuro WNL except L pupil bigger than R, but both reactive. denies vision changes. scant amount of white drainage noted bilat eyes, sclera pink,
[2024-04-28] VITALS (12 sets, daily range): BP systolic 108–142; BP diastolic 55–67
--- NOTE | 2024-04-28 02:51 | NUR ---
ON ROOM AIR, NO S/SX DISTRESS, REPOSITIONED, PURE WICK- SCDS IN PLACE. BED ALARM. CIWA ZERO POINTS, AWAKENS EASILY, PLEASANT, ALERT TO ALL
[2024-04-28 05:36] LABS: BASOPHILS 0.1 % (0-2); EOSINOPHILS 1.5 % (0-6); HEMATOCRIT 39.1 % (35.0-50.0); HEMOGLOBIN 13.5 g/dL (12.0-18.0); LYMPHOCYTES 14.8 % (24-44); MCH 32.6 (27-36); MCHC 34.4 g/dl (30-36); MCV 94.9 fl (81-99); MONOCYTES 17.4 % (0-12); NEUTROPHILS 66.2 % (39-80); PLATELET COUNT 117 K/uL (140-440); RBC 4.12 M/ul (4.3-5.7); RDW 13.4 (10.5-15.0)
--- NOTE | 2024-04-28 05:44 | NUR ---
Pt trying to get out of bed, alert to slef, place and town and resoning why she is here. On room air. took tele and cpox sensor off. tore apart tele. repositioned multiple times and keep taking off. "it feels heavy". resons for cpox and tele explained, unknown how much instructions she retained. scds on, SL patent. Pure wick replaced a few minutes ago after vitals. attends changed, incontinent of urine. lynne care done, Caares explained, tolerated well, helped with turning and repositioning, no sob noted with exertion. Will call MD and notify of pts inability to keep cpox and tele.
[2024-04-28 05:52] LABS: ALBUMIN 3.4 g/dL (3.4-5.0); ALBUMIN/GLOBULIN RATIO 1.13 (1.1-2.4); ANION GAP 13.6 (7-21); BILIRUBIN, TOTAL 0.6 ng/dL (0.2-1.0); BUN/CREATININE RATIO 17.74 (6.0-28.6); CALCIUM 8.5 mg/dL (8.5-10.1); CREATININE, SERUM 0.62 mg/dL (0.55-1.02); POTASSIUM 3.6 mmol/L (3.5-5.1); PROTEIN, TOTAL 6.4 g/dL (6.4-8.2)
--- NOTE | 2024-04-28 06:00 | NUR ---
TELE LEADS BACK IN PLACE, ASSISTED pt WITH PUTTING GOWN BACK IN PLACE. REORIENTED pt TO TIME, BED ALARM ON FOR SAFETY. pt VERBALIZES EAGERNESS TO GO HOME TODAY SO SHE CAN SEE HER PET CATS AT HOME. pt THEN GOES ON AND DISCUSSES AND TALKS ABOUT HER CATS, SPEECH WNL AND pt PLEASANT AT THIS TIME. TV ON FOR DISTRACTION AND JELLO PROVIDED. NO FURTHER NEEDS, CALL LIGHT IN REACH. PRIMARY RN XIOMARA UPDATED AND AWARE.
--- NOTE | 2024-04-28 06:56 | NUR ---
Dr Kincaid notified of pts taking CPOX and tele off several times during this night. daily valle received "she is on them because the CIWA protocol. ok to leave the CPOX off for now, If she does not tolerate the tele can be dc'd. if she continues to tolerate it leave it on". Pt calm room air, tele in place, scds in place, coffee given at her request
--- NOTE | 2024-04-28 07:43 | NUR ---
PT RESTING SOUNDLY AT TIME OF SHIFT REPORT, LEFT UNDISTURBED. BED ALARM IS EPILEPSY PHYSICIAN LIGHT AND NEEDED ITEMS IN REACH.
[2024-04-28] MEDS ORDERED: ASPIRIN 81 MG CHEW PO SCH (08:00)
--- NOTE | 2024-04-28 08:15 | NUR ---
PT REPOSITIONED UPWARD IN BED FOR MORNING MEAL. SON IS PRESENT IN THE ROOM. PT VISITS ACTIVELY AND SELF FEEDS BREAKFAST. STATES SHE FEELS "MUCH BETTER" THAN YESTERDAY. DENIES FURTHER NEEDS AT THIS TIME
[2024-04-28] MEDS ORDERED: lisinopriL 5 MG TAB PO SCH (09:00)
--- NOTE | 2024-04-28 09:46 | NUR ---
PT EATS MOST OF MORNING MEAL AGREES SHE IS FULL. SBA TO TOILET USING FWW, PT IS WEAK BUT DOES WELL. RETURNS TO THE RECLINER AND IS DOING PERSONAL CARES. CALL LIGHT IN LAP HEELS FLOATED WITH PILLOW.
--- NOTE | 2024-04-28 11:47 | NUR ---
PT CONTINUES UP IN THE CHAIR DOZING AT THIS TIME CALL LIGHT IN HER LAP
--- NOTE | 2024-04-28 13:16 | NUR ---
PT SELF FEEDS SITTING UP IN THE CHAIR C/O UPSET STOMACHE SOON AFTER. HAS A SMALL AMOUNT OF CLEAR EMESIS. AGREES TO AN ENSURE AND FRESH H20, CONTINUES UP IN THE CHAIR DENIES NEED OR DISCOMFORTS. CALL LIGHT IN HER LAP REMINDER GIVEN TO USE FOR ANY NEED
--- NOTE | 2024-04-28 14:30 | NUR ---
PT DOZING IN RECLINER AWAKENED FOR VITALS. DENIES NEED TO TOILET. ASKED IF SHE WOULD LIKE TO GO TO BED TO NAP SHE DECLINES STATING SHE IS COMFORTABLE AT THIS TIME.
--- NOTE | 2024-04-28 15:30 | NUR ---
Assisted Pt 1PA FWW from chair to bathroom and back. Pt had diarrhea BM. Assisted Pt in cleaning up, as Pt had trouble on own. Changed Pt's chair cover linen. Call light left in reach. No other needs expressed by Pt.
--- NOTE | 2024-04-28 16:29 | NUR ---
PT AWAKENED EARLIER BY VISITORS SHE VISITS ACTIVELY THEN RETURNS TO NAPPING AFTER THEY LEAVE
--- NOTE | 2024-04-28 18:10 | NUR ---
PT SITTING UP IN THE RECLINER SELF FEEDING EVENING MEAL. PT DENIES DISCOMFORTS OR NEED OF ANYTHING
--- NOTE | 2024-04-28 18:30 | NUR ---
Recorded Pt's I's & O's, and provided Pt with fresh ice water. Call light left in reach. No other needs expressed by Pt.
--- NOTE | 2024-04-28 19:50 | NUR ---
ALERT AND ORIENTED TO SELF, TOWN, PLACE, SITUATION AND DATE, FORGETFUL ABOUT SURROUNDING TOWNS TO [place]TH BUT MENTIONED ALL TOWNS FROM [place] TO AND [place]. UP IN CHAIR, ROOM AIR, CLEAR LUNGS. DENIES CP OR SOB WITH EXERTION. TELE#[address] SR W OCCASSIONAL SVPB'S. ABD SOFT, SABRINA, HAD SEVERAL BM'S IN AM SHIFT, ATTENDS IN PLACE, INDEPENDENT W SBA WHEN UP TO BRP. NOTED TO HAVE 200CC UNDIGESTED FOOD LIKE EMESIS, 'IT HAPPEND EARLIER WHEN I GOT DONE EATING' STATED. UNKNOWN WHAT TIME IT HAPPENED, DENIES NEED FOR N/V MED AT THIS TIME. 'MY ABD FEELS OK NOT, I TRIED TO EAT VERY FAST' STATED. IN CHAIR, WATCHNG TV, LEGS ELEVATED. CALL LIGHT AND FLUIDS AT HANDS REACH
--- NOTE | 2024-04-28 22:38 | NUR ---
Pt inchair, eyes closed, no s/sx distress ot etoh withdrawals, legs elevated, call light and fluids at bedside
[2024-04-29] VITALS (7 sets, daily range): BP systolic 122–162; BP diastolic 56–88
--- NOTE | 2024-04-29 02:12 | NUR ---
RESTING, EYS CLOSED, ON ROOM AIR. NO S/SX ETOH WITHDRAWALS. SCDS OFF HER REQUESTS. BED ALARM ON
--- NOTE | 2024-04-29 04:10 | NUR ---
RESTING, NO DISTRESS, ON ROOM AIR. NO S/SX ETOH WITHDRAWALS, TELE#3 IN PL[address], SR, SCDS OFF HER REQUESTS
--- NOTE | 2024-04-29 05:39 | NUR ---
LAB TECHS IN ROOM. pt HAS URGENCY. STATES "I'M WEAK". LEGS SHAKY. 1PA WITH FWW TO BSC FOR VOID AND SMALL SOFT, LOOSE BM. BACK IN BED. VS COMPLETE. CALL LIGHT IN REACH.
[2024-04-29 05:52] LABS: BASOPHILS 0.3 % (0-2); EOSINOPHILS 1.4 % (0-6); HEMATOCRIT 43.9 % (35.0-50.0); HEMOGLOBIN 14.9 g/dL (12.0-18.0); LYMPHOCYTES 16.5 % (24-44); MCH 32.5 (27-36); MCHC 33.9 g/dl (30-36); MCV 95.9 fl (81-99); MONOCYTES 11.7 % (0-12); NEUTROPHILS 70.1 % (39-80); PLATELET COUNT 139 K/uL (140-440); RBC 4.58 M/ul (4.3-5.7); RDW 13.6 (10.5-15.0)
[2024-04-29 06:15] LABS: ALBUMIN 3.6 g/dL (3.4-5.0); ALBUMIN/GLOBULIN RATIO 1.06 (1.1-2.4); ANION GAP 12.5 (7-21); BILIRUBIN, TOTAL 0.6 ng/dL (0.2-1.0); BUN/CREATININE RATIO 19.11 (6.0-28.6); CALCIUM 8.7 mg/dL (8.5-10.1); CREATININE, SERUM 0.68 mg/dL (0.55-1.02); MAGNESIUM 2.1 mg/dL (1.8-2.4); POTASSIUM 3.5 mmol/L (3.5-5.1)
--- NOTE | 2024-04-29 07:57 | NUR ---
PT ALERT AND INTERACTIVE AT TIME OF SHIFT REPORT. AGREES SHE IS COMFORTABLE AND DENIES NEEDS OF. SITTING UP EATING BREAKFAST AT THIS TIME, CALL LIGHT AND NEEDED ITEMS IN REACH
--- NOTE | 2024-04-29 08:15 | NUR ---
PT USING EMESIS BAG PRODUCING MOSTLY CLEAR FLUID APPROX 250 MLS. PT DENIES NAUSEA. NOTED PT DOING THIS YESTERDAY IN CONJUNCTION WITH MEAL. HOSPITALIST NOTIFIED THIS SHIFT ORDERS PROVIDED. PT ATE VERY LITTLE OF MORNING MEAL AND UNABLE TO TAKE MORNING MEDS
--- NOTE | 2024-04-29 08:20 | NUR ---
Board has been updated and call light has been placed within reach. Patient recieved a call from her son this morning to check in. No request from patient at this time
--- NOTE | 2024-04-29 08:59 | NUR ---
Patient refused a shower nik. I will ask patient again in thirty minutes if she wants to shower and get her in recliner.
--- NOTE | 2024-04-29 09:15 | NUR ---
Spoke with Mellisa. She cont. to live in her home with her 3 adult children and a grandchild. Pt states she does fine walking in her home. She has 5 steps into the home, but denies issues getting in or out of her home. We discussed pts alcohol level on arrival and she state she drinks everyday. One of her main concerns is her children frequently drink her alcohol. Per pt, she pays all the bills. Oldest son pays for the cat food and daughter pays for her the wine she drinks. We discussed if pt would like to stop drinking and she states she would and is agreeable to speak with ANGEL. I will call them to visit her and she is agreement. Pt has not worked with PT yet. Daughter arrives and states pt cannot return home unless she can walk on her own. Pt states she has walked in and out of the bathroom. Pt does not feel she needs Pt PT or HH. Pt states she stopped driving on her own a few months ago. Her daughter does the grocery shopping and cooking. She has a paid molder machine tender clean weekly. Pt plans on dc to home today. Denies financial issues. feel she needs OP PT or HH. Pt denies financial
[2024-04-29] MEDS ORDERED: POTASSIUM CHLORIDE 10 MEQ TABCR PO ONE ×2 (09:30→10:00)
[2024-04-29] MEDS ORDERED: CALCIUM CARBONATE 500 MG CHEW PO PRN (09:45)
--- NOTE | 2024-04-29 09:46 | NUR ---
UR CLINICAL REVIEW: 2 MN FOR VERSALUS-MEETS INPT CRITERIA MEDICARE INPT 04/27/24 @ 0851 ORDER MATCHES REG NO AUTH REQUIRED PER MEDICARE GUIDELINES DISCHARGE TO HOME IN 24-48 HRS.
--- NOTE | 2024-04-29 10:11 | NUR ---
PT TO MRI VIA W/C
[2024-04-29] MEDS ORDERED: LORazepam 2 MG/ML VIAL ONE (10:18)
--- NOTE | 2024-04-29 10:46 | NUR ---
MRI HOWIE CALLED TO STATE THE PT WAS HAVING ANXIETY ABOUT THE PROCEDURE. CALLED DR SWANSON AND OVERRODE ATIVAN. ADMINISTERED TO PT IN MRI AND HELPED HOWIE GET PT ONTO MRI TABLE. PT TOLERATED WELL.
[2024-04-29] MEDS ORDERED: POTASSIUM CHLORIDE 20 MEQ/15 ML CUP PO ONE (11:00)
[2024-04-29] MEDS ORDERED: LORazepam 2 MG/ML VIAL IV ONE (11:15)
--- NOTE | 2024-04-29 11:21 | NUR ---
POTASSIUM ADMIN PER EMAR. PT DENIED ANY NEEDS, CALL LIGHT IN REACH.
[2024-04-29] MEDS ORDERED: LIPITOR40 MG PO (11:32)
[2024-04-29] MEDS ORDERED: LISINOPRIL5 MG PO (11:32)
[2024-04-29] MEDS ORDERED: ASPIRIN81 MG PO (11:32)
[2024-04-29] MEDS ORDERED: B-1100 MG PO (11:34)
--- NOTE | 2024-04-29 12:25 | NUR ---
ANGEL IN TO TALK WITH PT ABOUT ETOH AND ANY NEEDS SHE MAY HAVE R/T RECOVERY
--- NOTE | 2024-04-29 13:00 | NUR ---
Notified by staff, pt spoke with ANGEL. Per ANGEL, pt does not feel she has issues with alcohol and feels because she drinks milk with her whisky, drinking is not an issue.
== END 2024-04-29 13:10 | disposition home or self-care (01) | DRG 897 ==
LOC: ED 19:06 → MS 20:33
PROVIDERS: Internal Medicine; ADMIT Family Medicine; ATTEND Family Medicine
PROC: HZ2ZZZZ Detoxification Services for Substance Abuse Treatment (ICD-10-PCS; principal; 2024-04-26)
DX: F10.929 Alcohol use, unspecified with intoxication, unspecified (principal); N39.0 Urinary tract infection, site not specified; I16.0 Hypertensive urgency; K21.9 Gastro-esophageal reflux disease without esophagitis; R41.3 Other amnesia; Y90.6 Blood alcohol level of 120-199 mg/100 ml; Z96.612 Presence of left artificial shoulder joint; Z91.81 History of falling; Z88.0 Allergy status to penicillin; Z88.5 Allergy status to narcotic agent
CPT/HCPCS: 36415; 70450; 70496; 70498; 70551; 71045; 80053; 80061; 80307; 81001; 83036; 83735; 83880; 84439; 84443; 84484; 85025; 85610; 85730; 87088; 93005; 93010; 97116; 97162; 97530; 99285-25; A9270; G0480; J0360; J0696; J2001; J2405; J3411; J3475; J3480; J7030; J7060; Q9967

== ENCOUNTER 2024-08-05 21:10 | Emergency (ER) | payer MEDICARE, OTHER ==
[~2024-08-05] VITALS: Ht 165.1 cm; Wt 73.0 kg
[~2024-08-05 21:10] MED LIST changes: +ASPIRIN81 MG PO; +B-1100 MG PO; +LISINOPRIL5 MG PO
[2024-08-05 22:03] LABS: BASOPHILS 0.3 % (0-2); EOSINOPHILS 2.9 % (0-6); HEMATOCRIT 41.1 % (35.0-50.0); MCH 31.7 (27-36); MCV 93.2 fl (81-99); MONOCYTES 16.5 % (0-12); NEUTROPHILS 56.3 % (39-80); PLATELET COUNT 137 K/uL (140-440); RBC 4.41 M/ul (4.3-5.7); RDW 14.3 (10.5-15.0)
[2024-08-05 22:20] LABS: BILIRUBIN, URINE NEGATIVE (negative); BLOOD/HGB, URINE NEGATIVE (Negative); KETONE, URINE NEGATIVE (Negative); LEUK ESTERASE, URINE SMALL (negative); NITRITE, URINE NEGATIVE (negative)
[2024-08-05 22:29] LABS: CRYSTALS, URINE NONE SEEN (0-1+); EPITHELIAL CELLS, URINE SQUAMOUS 2+ /lpf (0-1+); RED BLOOD CELLS, URINE 0-1 /hpf (0-5); WHITE BLOOD CELLS, URINE >50 /HPF (0-5)
[2024-08-05 22:30] LABS: BACTERIA, URINE RARE /hpf (negative); CASTS, URINE NONE SEEN \\lpf; COLLECTION TYPE, URINE CLEAN CATCH; REFLEX CULTURE, URINE No (No)
[2024-08-05 22:31] LABS: ALBUMIN 3.7 g/dL (3.4-5.0); ALBUMIN/GLOBULIN RATIO 1.12 (1.1-2.4); ANION GAP 14.3 (7-21); BILIRUBIN, TOTAL 0.3 ng/dL (0.2-1.0); BUN/CREATININE RATIO 7.69 (6.0-28.6); CALCIUM 9.5 mg/dL (8.5-10.1); CREATININE, SERUM 0.78 mg/dL (0.55-1.02); POTASSIUM 4.3 mmol/L (3.5-5.1)
[2024-08-05] MEDS ORDERED: MACROBID 100 M100 MG PO (22:55)
[2024-08-05] MEDS ORDERED: PYRIDIUM100 MG PO (22:56)
[2024-08-05] MEDS ORDERED: PHENAZOPYRIDINE HCL 95 MG TAB PO ONE (23:00)
[2024-08-05] MEDS ORDERED: NITROFURANTOIN MONOHYD MACROCR 100 MG HOME.PACK PO ONE (23:00)
[2024-08-05 23:15] VITALS: BP 163/75
== END 2024-08-05 23:15 | disposition home or self-care (01) ==
LOC: ED 21:10
PROVIDERS: Internal Medicine
DX: N39.0 Urinary tract infection, site not specified (principal); Z88.0 Allergy status to penicillin; Z88.5 Allergy status to narcotic agent; Z79.899 Other long term (current) drug therapy
CPT/HCPCS: 36415; 51701; 80053; 81001; 83690; 83880; 85025; 87088; 99284-25